=== PATIENT | female | born 1955 | race Caucasian/White ===

== ENCOUNTER 2018-02-18 09:02 | Outpatient (CLI) | payer MEDICAID, SELFPAY ==
[2018-02-18 09:42] LABS: Abs Immature Grans 0.01 k/cumm (0.0-0.09); Absolute Basophil Count 0.01 k/cumm (0.0-0.2); Absolute Eosinophil Count 0.15 k/cumm (0.0-0.7); Absolute Lymphocyte Count 1.26 k/cumm (1.2-3.4); Absolute Monocyte Count 0.51 k/cumm (0.11-0.7); Absolute Neutrophil Count 5.01 k/cumm (1.2-6.7); Basophils % 0.1; Eosinophils % 2.2; HCT 36.8 % (36.0-46.0); HGB 11.6 g/dL (12.0-15.5); Immature Grans % 0.1; Lymphocytes % 18.1; Mean Corp. HGB Concentration 31.5 g/dL (32.0-36.0); Mean Corpuscular Hemoglobin 30.5 pg (27.0-33.0); Mean Corpuscular Volume 96.8 fL (80-95); Mean Platelet Volume 9.9 fL (8.0-11.0); Monocytes % 7.3; Neutrophils % 72.2; Platelet Count 216 x1000/uL (130-400); RBC Distribution Width 14.4 % (11.7-14.6); White Blood Cell Count 6.95 k/cumm (4.4-10.8)
== END 2018-02-18 09:03 ==
PROVIDERS: PCP Psychiatry & Neurology Psychiatry; Visit Provider Psychiatry & Neurology Psychiatry
DX: F20.9 Schizophrenia, unspecified (principal); Z51.81 Encounter for therapeutic drug level monitoring; Z79.899 Other long term (current) drug therapy
CPT/HCPCS: 36415; 85025

== ENCOUNTER 2018-03-18 08:48 | Emergency (ER) | payer MEDICARE, MEDICAID, SELFPAY ==
[2018-03-18 08:53] VITALS: BP 135/70; PULSE 105; RESP 17; TEMP 36.7; O2SAT 100
--- NOTE | 2018-03-18 10:33 | W.ED.GENAD ---
Discharge Plan Disposition Patient Disposition: HOME Condition: Stable Discharge Details Chief Complaint: PsychEval Clinical Impression: Anemia Primary Care Provider: Vicente Mark ED Provider: Marie Corea Home Meds and New Rx's Prescriptions: Continue glipizide 10 MG tablet 10 mg PO BID RF: 0 metformin 1,000 MG tablet 1,000 mg PO BID RF: 0 cholecalciferol (vitamin D3) 1,000 UNITS tablet 2,000 units PO DAILY RF: 0 simvastatin 20 MG tablet 20 mg PO DAILY RF: 0 levalbuterol tartrate [Xopenex HFA] 15 GM HFA aerosol inhaler 2 puff Inhalation Q4H PRNRF: 0 lorazepam 0.5 MG tablet 0.5 mg PO TID RF: 0 acetaminophen [Mapap Extra Strength] 500 MG tablet 1,000 mg PO Q6H PRNRF: 0 docusate sodium [Colace] 100 MG capsule 200 mg PO HS PRNRF: 0 magnesium hydroxide [Milk of Magnesia] 30 ML suspension 30 ml PO DAILY PRNRF: 0 nystatin 60 GM powder 1 applic Topical BID PRNRF: 0 zolpidem 5 MG tablet 5 mg PO HS PRNRF: 0 clozapine [Clozaril] 25 MG tablet 200 mg PO BID RF: 0 lisinopril 2.5 MG tablet 2.5 mg PO DAILY RF: 0 acetaminophen 325 MG tablet 650 mg PO TID PRNRF: 0 ranitidine HCl 150 MG tablet 150 mg PO BID RF: 0 brimonidine 15 ML drops 1 drp OD BID RF: 0 aspirin [Aspir-81] 81 MG tablet,delayed release (DR/EC) 81 mg PO DAILY RF: 0 clozapine 100 MG tablet 100 mg PO HS RF: 0 Discharge Instructions Instructions: Anemia (ED) Additional Instructions: Please return immediately to the emergency department if you develop any new or worsening symptoms or if you become otherwise concerned. It is extremely important that you make an appointment to be seen by your primary care doctor within the next 1-2 weeks in follow-up for this visit. Discharge Data Discharge Date/Time-TO BE ENTERED AT DEPARTURE: 03/18/18 11:54 Medical Decision Making Nya Westbrook is a 62 y/o woman who presented to the emergency department to be set up with a PCP while she was in the hospital for scheduled outpt blood draw. She has no acute complaints other than mild urinary frequency on ROS. Benign physical exam. Given multiple medical problems and some possible access issues with the health care system, will send screening labs at this time, and also involve care management for outpt f/u. Labs okay, UA equivocal for UTI, will hold abx pending cx results. No acute emergent life threatening medical process identified. Lengthy discussion with Pt re: RTED precautions and importance of outpt f/u. Pt is amenable to the plan. Medical Records Medical records reviewed: Yes I reviewed the patient's medical records. Lab Data Lab results reviewed: Yes I reviewed the patient's lab results. Lab results narrative: Laboratory Tests Range/Units 03/18/18 03/18/18 03/18/18 09:08 10:42 10:42 WBC (4.4-10.8) k/cumm 7.07 RBC (4.00-5.20) m/cumm 3.66 L Hgb (12.0-15.5) g/dL 11.6 L Hct (36.0-46.0) % 35.3 L MCV (80-95) fL 96.4 H MCH (27.0-33.0) pg 31.7 MCHC (32.0-36.0) g/dL 32.9 RDW (11.7-14.6) % 14.2 Plt Count (130-400) x1000/uL 232 MPV (8.0-11.0) fL 9.4 Immature Gran % 0.1 Neutrophils % 70.9 Lymphocytes % 20.4 Monocytes % 7.6 Eosinophils % 0.7 Basophils % 0.3 Absolute Neutrophils (1.2-6.7) k/cumm 5.01 Absolute Lymphocytes (1.2-3.4) k/cumm 1.44 Absolute Monocytes (0.11-0.7) k/cumm 0.54 Absolute Eosinophils (0.0-0.7) k/cumm 0.05 Absolute Basophils (0.0-0.2) k/cumm 0.02 Sodium (136-145) mmol/L 141 Potassium (3.5-5.1) mmol/L 4.4 Chloride (98-107) mmol/L 105 Carbon Dioxide (21.0-32.0) mmol/L 25.1 Anion Gap (3-11) mmol/L 10.9 BUN (7-18) mg/dL 10 Creatinine (0.55-1.02) mg/dL 0.86 Estimated GFR/1.73 m2 (mL/min/1.73m2) >= 60.00 Glucose (70-100) mg/dL 113 H Calcium (8.5-10.1) mg/dL 9.3 Total Bilirubin (0.2-1.0) mg/dL 0.2 AST (15-37) U/L 17 ALT (12-78) U/L 22 Alkaline Phosphatase (46-116) U/L 80 Total Protein (6.4-8.2) g/dL 7.4 Albumin (3.4-5.0) g/dL 3.5 TSH (0.358-3.74) uIU/mL 3.99 H Free T4 (0.76-1.46) ng/dL 0.85 Urine Color (Yellow) Yellow Urine Clarity Cloudy Urine pH (5-8) 6.5 Ur Specific [place] (1.005-1.025) 1.020 Urine Protein (Negative) mg/dL 30 H Urine Ketones (Negative) mg/dL 15 H Urine Blood (Negative) Trace-intact H Urine Nitrite (Negative) Negative Urine Bilirubin (Negative) Negative Urine Urobilinogen (Up TO 0.2) EU/dL 0.2 Ur Leukocyte Esterase (Negative) Small H Urine RBC (0-2) 3-5 H Urine WBC (0-5) HPF 5-10 Ur Epithelial Cells (Negative) HPF Many Urine Crystals (Negative) HPF Negative Urine Bacteria (Negative) HPF Many Urine Casts (Negative) LPF Negative Urine Mucus (Negative) Trace Ur Culture Indicated? No/sq. contamination Urine Glucose (Negative) mg/dL Negative HPI General Mode of arrival: ambulatory. Date/Time Provider Initiated Documentation: 03/18/18 10:01. Limitations to Documentation: no limitations. Information obtained by: patient, RN notes reviewed and old records reviewed. HPI Narrative: Nya Westbrook is a 62 y/o woman with h/o HTN, NIDDM, schizophrenia presenting to the emergency department requesting a PCP. Pt reports that she was scheduled to have blood drawn today in the lab on an outpt basis, and decided to register in the ED to get help finding a primary care doctor. Pt reports that she sees a mental health provider, but would like a PCP as she has multiple chronic complaints. Pt reports chronic hip pain, chronic pain of her left orbit after facial fracture in the past. No new complaints. She reports all chronic pain has been present for months without acute changes. She states that she does not have a physical complaint today and did not come to the emergency department to be evaluated. She has been taking her meds as prescribed. Related Data Home Medications Medication Instructions Recorded Confirmed acetaminophen 650 mg PO TID PRN 06/03/15 06/03/15 acetaminophen [Mapap Extra 1,000 mg PO Q6H PRN 06/03/15 06/03/15 Strength] aspirin [Aspir-81] 81 mg PO DAILY 06/03/15 04/07/16 brimonidine 1 drp OD BID 06/03/15 04/07/16 cholecalciferol (vitamin D3) 2,000 units PO DAILY 06/03/15 06/03/15 clozapine [Clozaril] 200 mg PO BID 06/03/15 04/07/16 docusate sodium [Colace] 200 mg PO HS PRN 06/03/15 04/07/16 glipizide 10 mg PO BID 06/03/15 04/07/16 levalbuterol tartrate [Xopenex HFA] 2 puff INHALATION Q4H PRN 06/03/15 04/07/16 lisinopril 2.5 mg PO DAILY 06/03/15 04/07/16 lorazepam 0.5 mg PO TID 06/03/15 04/07/16 magnesium hydroxide [Milk of 30 ml PO DAILY PRN 06/03/15 04/07/16 Magnesia] metformin 1,000 mg PO BID 06/03/15 04/07/16 nystatin 1 applic TOPICAL BID PRN 06/03/15 04/07/16 ranitidine HCl 150 mg PO BID 06/03/15 04/07/16 simvastatin 20 mg PO DAILY 06/03/15 04/07/16 zolpidem 5 mg PO HS PRN 06/03/15 06/03/15 clozapine 100 mg PO HS 04/07/16 04/07/16 Allergies Allergy/AdvReac Type Severity Reaction Status Date / Time fluphenazine enanthate AdvReac Severe almost Unverified 04/07/16 12:51 [From Prolixin] last time they gave it to me fluphenazine HCl AdvReac Severe almost Unverified 04/07/16 12:51 [From Prolixin] last time they gave it to me haloperidol [From Haldol] AdvReac Mild doesn't Unverified 04/07/16 12:51 agree with me haloperidol lactate AdvReac Mild doesn't Unverified 04/07/16 12:51 [From Haldol] agree with me chlorpromazine HCl AdvReac Unknown per pt Unverified 04/07/16 12:51 [From [place]azine] [place] [facility] [place] AdvReac Unknown pt list Unverified 04/07/16 12:51 [place] [facility] [place]up[place] AdvReac Unknown per pt Unverified 04/07/16 12:51 [place] [facility] [place] AdvReac Unknown per pt Unverified 04/07/16 12:51 [place] [facility] [place] paliperidone [From Invega] AdvReac Unknown per pt Unverified 04/07/16 12:51 [place] [facility] [place] Penicillins AdvReac Unknown per pt Unverified 04/07/16 12:51 [place] [facility] [place] Sulfa (Sulfonamide AdvReac Unknown per pt Unverified 04/07/16 12:51 Antibiotics) [place] [facility] [place] General Stated Complaint: PsychEval ALEX: 5 Review of Systems Review of Systems Constitutional: denies fevers Eyes: denies eye pain ENT: denies facial pain, dental pain, sore throat Cardiovascular: denies chest pain, edema Respiratory: denies SOB, cough GI: denies abdominal pain, vomiting, diarrhea : denies flank pain, dysuria, reports some urinary frequency MSK: denies back pain, neck pain, arthralgias, myalgias Skin: denies rash Neuro: denies headaches, lightheadedness, weakness PFSH Social History Smoking/Tobacco Use Status: Current every day Exam Narrative Exam Narrative: Constitutional: well and [id number], pleasant, conversing normally HENT: head atraumatic, normocephalic normal inspection, mucous membranes moist Eyes: conjunctiva normal, sclera normal, pupils 3mm b/l Neck: no stridor, normal ROM, trachea midline Chest: normal inspection Resp: normal work of breathing, LCTAB Cardio: normal rate, normal rhythm, no murmur appreciated GI: abdomen soft, non-tender, non-distended Back: normal inspection, no rash Skin: warm, dry, normal color, no rash Neuro: alert, not altered, grossly non-focal, normal tone Ext: no edema Psych: normal mood, somewhat odd affect, no hallucinations, no SI, no HI Course Vital Signs Temperature 36.7 C 03/18/18 08:53 Pulse 105 H 03/18/18 08:53 Respiratory Rate 17 03/18/18 08:53 Blood Pressure 135/70 03/18/18 08:53 Pulse Oximetry 100 03/18/18 08:53 Temperature 36.7 C 03/18/18 08:53 Temperature Source Temporal Artery Scan 03/18/18 08:53 Pulse 105 H 03/18/18 08:53 Respiratory Rate 17 03/18/18 08:53 Respiratory Effort 03/18/18 08:57 Blood Pressure 135/70 03/18/18 08:53 Blood Pressure Position Sitting 03/18/18 08:53 Pulse Oximetry 100 03/18/18 08:53 Oxygen Delivery Method Room Air 03/18/18 08:53 Oxygen Flow Rate 0 03/18/18 08:53
[2018-03-18 10:39] LABS: Bilirubin Negative (Negative); Blood Trace-intact (Negative); Clarity Cloudy; Glucose Negative (Negative); Ketones 15 mg/dL (Negative); Leukocyte Esterase Small (Negative); Nitrite Negative (Negative); Urobilinogen 0.2 EU/dL (Up TO 0.2); pH 6.5 (5-8)
[2018-03-18 10:56] LABS: Abs Immature Grans 0.01 k/cumm (0.0-0.09); Absolute Basophil Count 0.02 k/cumm (0.0-0.2); Absolute Eosinophil Count 0.05 k/cumm (0.0-0.7); Absolute Lymphocyte Count 1.44 k/cumm (1.2-3.4); Absolute Monocyte Count 0.54 k/cumm (0.11-0.7); Absolute Neutrophil Count 5.01 k/cumm (1.2-6.7); Basophils % 0.3; Eosinophils % 0.7; HCT 35.3 % (36.0-46.0); HGB 11.6 g/dL (12.0-15.5); Immature Grans % 0.1; Lymphocytes % 20.4; Mean Corp. HGB Concentration 32.9 g/dL (32.0-36.0); Mean Corpuscular Hemoglobin 31.7 pg (27.0-33.0); Mean Corpuscular Volume 96.4 fL (80-95); Mean Platelet Volume 9.4 fL (8.0-11.0); Monocytes % 7.6; Neutrophils % 70.9; Platelet Count 232 x1000/uL (130-400); RBC 3.66 m/cumm (4.00-5.20); RBC Distribution Width 14.2 % (11.7-14.6); White Blood Cell Count 7.07 k/cumm (4.4-10.8)
[2018-03-18 11:03] LABS: Bacteria Many HPF (Negative); C & S Indicated? No/Sq. Contamination; Casts Negative LPF (Negative); Crystals Negative HPF (Negative); Epithelial Cells Many HPF (Negative); Mucus Trace (Negative)
[2018-03-18 11:13] LABS: ALT 22 U/L (12-78); AST 17 U/L (15-37); Albumin 3.5 g/dL (3.4-5.0); Alkaline Phosphatase 80 U/L (46-116); Anion Gap 10.9 mmol/L (3-11); BUN 10 mg/dL (7-18); Bilirubin, Total 0.2 mg/dL (0.2-1.0); CO2 25.1 mmol/L (21.0-32.0); CREATININE 0.86 mg/dL (0.55-1.02); Calcium 9.3 mg/dL (8.5-10.1); Chloride 105 mmol/L (98-107); Glucose 113 mg/dL (70-100); Potassium 4.4 mmol/L (3.5-5.1); Sodium 141 mmol/L (136-145); TSH (W/Ref FT4) 3.99 uIU/mL (0.358-3.74); Total Protein 7.4 g/dL (6.4-8.2)
--- NOTE | 2018-03-18 11:30 | PDOC.ERCMPRO ---
Care Management Progress Note 03/18/18 Pt seen today to try and establish a PCP,Dentist and an Eye Dr by Dr. Martinez. CM met with Pt who states she lives at a [facility] in [place] which is [place]. Pt states she sees Dr. Vicente Concepcion, Pyschiatrist. She states she came in for a standing blood draw order in the lab and thought while she was here she would get seen in Ed to get a PCP, Dentist and an Eye Dr. CHERRY has put in a referral to [facility] as Gerson Zabala is preparation supervisor canning, A referral to [facility] and a referral to [facility]. CHERRY has called [facility] for a ride for Pt to return back to [place].
--- NOTE | 2018-03-18 11:35 | CMPROGNOTE_ITS ---
Care Management Progress Note 03/18/18 Pt seen today to try and establish a PCP,Dentist and an Eye Dr by Dr. Martinez. CM met with Pt who states she lives at a senior care in [place] which is [place]. Pt states she sees Dr. Vicente Concepcion, Pyschiatrist. She states she came in for a standing blood draw order in the lab and thought while she was here she would get seen in Ed to get a PCP, Dentist and an Eye Dr. CHERRY has put in a referral to [facility] as Gerson Zabala is machine precision engraver, A referral to [facility] and a referral to [facility]. CHERRY has called [facility] for a ride for Pt to return back to [place].
[2018-03-18 11:36] LABS: FREE T4 0.85 ng/dL (0.76-1.46)
== END 2018-03-18 11:54 | disposition home or self-care (01) ==
PROVIDERS: Emergency Provider Student in an Organized Health Care Education/Training Program; PCP Psychiatry & Neurology Psychiatry
DX: D64.9 Anemia, unspecified (principal); E11.9 Type 2 diabetes mellitus without complications; Z79.84 Long term (current) use of oral hypoglycemic drugs
CPT/HCPCS: 36415; 80053; 99283; 81003; 81015; 84439; 84443; 85025; 99282

== ENCOUNTER 2018-03-21 15:09 | Outpatient (REF) | payer MEDICAID, SELFPAY | END 2018-03-21 15:29 | LOC: NCHCN 15:09 | PROVIDERS: PCP Psychiatry & Neurology Psychiatry; Visit Provider Specialist/Technologist Athletic Trainer | DX: R39.9 Unspecified symptoms and signs involving the genitourinary system (principal) | CPT/HCPCS: 87077; 87086; 87186 ==

== ENCOUNTER 2018-04-15 09:26 | Outpatient (CLI) | payer MEDICARE, MEDICAID, SELFPAY ==
[2018-04-15 10:14] LABS: Absolute Basophil Count 0.02 k/cumm (0.0-0.2); Absolute Eosinophil Count 0.06 k/cumm (0.0-0.7); Absolute Lymphocyte Count 1.21 k/cumm (1.2-3.4); Absolute Monocyte Count 0.39 k/cumm (0.11-0.7); Absolute Neutrophil Count 3.74 k/cumm (1.2-6.7); Basophils % 0.4; Eosinophils % 1.1; HCT 36.3 % (36.0-46.0); HGB 11.7 g/dL (12.0-15.5); Lymphocytes % 22.3; Mean Corp. HGB Concentration 32.2 g/dL (32.0-36.0); Mean Corpuscular Hemoglobin 31.5 pg (27.0-33.0); Mean Corpuscular Volume 97.6 fL (80-95); Monocytes % 7.2; Platelet Count 182 x1000/uL (130-400); RBC 3.72 m/cumm (4.00-5.20); RBC Distribution Width 13.7 % (11.7-14.6); White Blood Cell Count 5.42 k/cumm (4.4-10.8)
== END 2018-04-15 09:46 ==
PROVIDERS: PCP Psychiatry & Neurology Psychiatry; Visit Provider Psychiatry & Neurology Psychiatry
DX: F20.9 Schizophrenia, unspecified (principal); Z79.899 Other long term (current) drug therapy
CPT/HCPCS: 36415; 85025

== ENCOUNTER 2018-05-01 10:02 | Outpatient (CLI) | payer MEDICARE, MEDICAID, SELFPAY ==
[2018-05-01 10:25] LABS: Abs Immature Grans 0.03 k/cumm (0.0-0.09); Absolute Basophil Count 0.02 k/cumm (0.0-0.2); Absolute Eosinophil Count 0.09 k/cumm (0.0-0.7); Absolute Lymphocyte Count 1.75 k/cumm (1.2-3.4); Absolute Monocyte Count 0.61 k/cumm (0.11-0.7); Absolute Neutrophil Count 7.45 k/cumm (1.2-6.7); Basophils % 0.2; Eosinophils % 0.9; HCT 34.4 % (36.0-46.0); HGB 11.6 g/dL (12.0-15.5); Immature Grans % 0.3; Lymphocytes % 17.6; Mean Corp. HGB Concentration 33.7 g/dL (32.0-36.0); Mean Corpuscular Hemoglobin 32.5 pg (27.0-33.0); Mean Corpuscular Volume 96.4 fL (80-95); Mean Platelet Volume 9.5 fL (8.0-11.0); Monocytes % 6.1; Neutrophils % 74.9; Platelet Count 193 x1000/uL (130-400); RBC 3.57 m/cumm (4.00-5.20); RBC Distribution Width 13.4 % (11.7-14.6); White Blood Cell Count 9.95 k/cumm (4.4-10.8)
== END 2018-05-01 10:22 ==
PROVIDERS: PCP Psychiatry & Neurology Psychiatry; Visit Provider Psychiatry & Neurology Psychiatry
DX: F20.9 Schizophrenia, unspecified (principal); Z79.899 Other long term (current) drug therapy
CPT/HCPCS: 36415; 85025

== ENCOUNTER 2018-05-29 09:45 | Outpatient (CLI) | payer MEDICARE, MEDICAID, SELFPAY ==
[2018-05-29 10:29] LABS: Abs Immature Grans 0.02 k/cumm (0.0-0.09); Absolute Basophil Count 0.02 k/cumm (0.0-0.2); Absolute Eosinophil Count 0.13 k/cumm (0.0-0.7); Absolute Lymphocyte Count 1.34 k/cumm (1.2-3.4); Absolute Monocyte Count 0.47 k/cumm (0.11-0.7); Absolute Neutrophil Count 4.56 k/cumm (1.2-6.7); Basophils % 0.3; HCT 37.9 % (36.0-46.0); HGB 11.9 g/dL (12.0-15.5); Immature Grans % 0.3; Lymphocytes % 20.5; Mean Corp. HGB Concentration 31.4 g/dL (32.0-36.0); Mean Corpuscular Hemoglobin 30.6 pg (27.0-33.0); Mean Corpuscular Volume 97.4 fL (80-95); Mean Platelet Volume 9.6 fL (8.0-11.0); Monocytes % 7.2; Neutrophils % 69.7; Platelet Count 245 x1000/uL (130-400); RBC 3.89 m/cumm (4.00-5.20); RBC Distribution Width 13.5 % (11.7-14.6); White Blood Cell Count 6.54 k/cumm (4.4-10.8)
== END 2018-05-29 10:05 ==
PROVIDERS: PCP Psychiatry & Neurology Psychiatry; Visit Provider Nurse Practitioner Psychiatric/Mental Health
DX: F20.9 Schizophrenia, unspecified (principal); Z79.899 Other long term (current) drug therapy
CPT/HCPCS: 36415; 85025

== ENCOUNTER 2018-06-11 19:30 | Outpatient (REF) | payer MEDICARE, MEDICAID, SELFPAY ==
[2018-06-11 20:29] LABS: C & S Indicated? C&S Done As Ordered
[2018-06-11 20:40] LABS: Bacteria Many HPF (Negative); Casts Negative LPF (Negative); Crystals Negative HPF (Negative); Epithelial Cells Many HPF (Negative); Mucus Negative (Negative); RBC Negative (0-2); WBC >50 HPF (0-5)
== END 2018-06-11 19:50 ==
LOC: NCHCN 19:30
PROVIDERS: PCP Psychiatry & Neurology Psychiatry; Visit Provider Specialist/Technologist Athletic Trainer
DX: R82.90 Unspecified abnormal findings in urine (principal); Z87.440 Personal history of urinary (tract) infections; M54.5 Low back pain
CPT/HCPCS: 87077; 81015; 87086; 87186

== ENCOUNTER 2018-06-26 10:02 | Outpatient (CLI) | payer MEDICARE, MEDICAID, SELFPAY ==
[2018-06-26 10:28] LABS: Abs Immature Grans 0.01 k/cumm (0.0-0.09); Absolute Basophil Count 0.01 k/cumm (0.0-0.2); Absolute Eosinophil Count 0.16 k/cumm (0.0-0.7); Absolute Lymphocyte Count 1.37 k/cumm (1.2-3.4); Absolute Neutrophil Count 6.76 k/cumm (1.2-6.7); Basophils % 0.1; Eosinophils % 1.8; HCT 34.4 % (36.0-46.0); HGB 11.4 g/dL (12.0-15.5); Immature Grans % 0.1; Lymphocytes % 15.7; Mean Corp. HGB Concentration 33.1 g/dL (32.0-36.0); Mean Corpuscular Hemoglobin 31.3 pg (27.0-33.0); Mean Corpuscular Volume 94.5 fL (80-95); Mean Platelet Volume 9.4 fL (8.0-11.0); Monocytes % 4.6; Neutrophils % 77.7; Platelet Count 225 x1000/uL (130-400); RBC 3.64 m/cumm (4.00-5.20); White Blood Cell Count 8.71 k/cumm (4.4-10.8)
== END 2018-06-26 10:22 ==
PROVIDERS: PCP Psychiatry & Neurology Psychiatry; Visit Provider Nurse Practitioner Psychiatric/Mental Health
DX: F20.9 Schizophrenia, unspecified (principal); Z79.899 Other long term (current) drug therapy
CPT/HCPCS: 85025

== ENCOUNTER 2018-07-12 17:21 | Outpatient (REF) | payer MEDICARE, MEDICAID, SELFPAY ==
[2018-07-12 19:15] LABS: Bilirubin Negative (Negative); Blood Trace-intact (Negative); Clarity Cloudy; Glucose Negative (Negative); Ketones Negative (Negative); Leukocyte Esterase Large (Negative); Nitrite Negative (Negative); Specific Gravity 1.015 (1.005-1.025); Urobilinogen 0.2 EU/dL (Up TO 0.2)
[2018-07-12 19:57] LABS: Bacteria Many HPF (Negative); C & S Indicated? Yes; Casts Negative LPF (Negative); Crystals Negative HPF (Negative); Epithelial Cells Few HPF (Negative); Mucus Negative (Negative); Other Cells Negative (Negative); WBC >50 HPF (0-5)
== END 2018-07-12 17:41 ==
LOC: NCHCN 17:21
PROVIDERS: PCP Psychiatry & Neurology Psychiatry; Visit Provider Physician Assistant Medical
DX: N39.0 Urinary tract infection, site not specified (principal)
CPT/HCPCS: 87077; 81003; 81015; 87086; 87186

== ENCOUNTER 2018-07-25 19:34 | Outpatient (REF) | payer MEDICARE, MEDICAID, SELFPAY ==
[2018-07-25 22:15] LABS: Bacteria Many HPF (Negative); Epithelial Cells Many HPF (Negative); RBC Negative (0-2); WBC 20-50 HPF (0-5)
[2018-07-25 22:16] LABS: Crystals Few Calcium Oxalate HPF (Negative)
[2018-07-25 22:17] LABS: C & S Indicated? No/Sq. Contamination; Mucus Negative (Negative)
== END 2018-07-25 19:54 ==
LOC: NCHCN 19:34
PROVIDERS: PCP Psychiatry & Neurology Psychiatry; Visit Provider Specialist/Technologist Athletic Trainer
DX: R35.0 Frequency of micturition (principal); R30.0 Dysuria
CPT/HCPCS: 81015

== ENCOUNTER 2018-07-31 08:44 | Outpatient (CLI) | payer MEDICARE, MEDICAID, SELFPAY ==
[2018-07-31 09:11] LABS: Abs Immature Grans 0.01 k/cumm (0.0-0.09); Absolute Basophil Count 0.03 k/cumm (0.0-0.2); Absolute Eosinophil Count 0.41 k/cumm (0.0-0.7); Absolute Lymphocyte Count 1.43 k/cumm (1.2-3.4); Absolute Monocyte Count 0.38 k/cumm (0.11-0.7); Absolute Neutrophil Count 6.38 k/cumm (1.2-6.7); Basophils % 0.3; Eosinophils % 4.7; HCT 35.5 % (36.0-46.0); HGB 11.4 g/dL (12.0-15.5); Immature Grans % 0.1; Lymphocytes % 16.6; Mean Corp. HGB Concentration 32.1 g/dL (32.0-36.0); Mean Corpuscular Hemoglobin 30.8 pg (27.0-33.0); Mean Corpuscular Volume 95.9 fL (80-95); Mean Platelet Volume 9.5 fL (8.0-11.0); Monocytes % 4.4; Neutrophils % 73.9; Platelet Count 236 x1000/uL (130-400); RBC Distribution Width 13.5 % (11.7-14.6); White Blood Cell Count 8.64 k/cumm (4.4-10.8)
[2018-07-31 10:27] LABS: Hemoglobin A1C 6.2 % (4.5-6.2)
[2018-07-31 10:55] LABS: ALT 14 U/L (12-78); AST 14 U/L (15-37); Albumin 3.5 g/dL (3.4-5.0); Alkaline Phosphatase 77 U/L (46-116); BUN 13 mg/dL (7-18); Bilirubin, Total 0.3 mg/dL (0.2-1.0); CREATININE 0.98 mg/dL (0.55-1.02); Calcium 9.5 mg/dL (8.5-10.1); Chloride 106 mmol/L (98-107); Cholesterol 145 mg/dL (50-200); Estimated GFR 56.96 (mL/min/1.73m2); Glucose 127 mg/dL (70-100); HDL Cholesterol 42 mg/dL (40-60); LDL CHOLESTEROL 77 mg/dL (<100); Potassium 4.7 mmol/L (3.5-5.1); Sodium 143 mmol/L (136-145); TSH 5.07 uIU/mL (0.358-3.74); Total Protein 7.1 g/dL (6.4-8.2); Triglyceride 157 mg/dL (30-150)
[2018-08-02 07:52] LABS: Clozapine 636 ng/mL (>350); Clozapine+Norclozapine Total 1008 ng/mL (>450); Norclozapine 372 ng/mL
== END 2018-07-31 09:04 ==
PROVIDERS: Nurse Practitioner Psychiatric/Mental Health; PCP Psychiatry & Neurology Psychiatry; Visit Provider Psychiatry & Neurology Psychiatry
DX: F25.0 Schizoaffective disorder, bipolar type (principal); Z51.81 Encounter for therapeutic drug level monitoring; Z79.899 Other long term (current) drug therapy
CPT/HCPCS: 36415; 80053; 80061; 83721; 80159; 83036; 84443; 85025

== ENCOUNTER 2018-08-28 09:20 | Outpatient (CLI) | payer MEDICARE, MEDICAID, SELFPAY ==
[2018-08-28 10:08] LABS: Abs Immature Grans 0.01 k/cumm (0.0-0.09); Absolute Basophil Count 0.02 k/cumm (0.0-0.2); Absolute Eosinophil Count 0.26 k/cumm (0.0-0.7); Absolute Lymphocyte Count 1.23 k/cumm (1.2-3.4); Absolute Monocyte Count 0.39 k/cumm (0.11-0.7); Absolute Neutrophil Count 4.41 k/cumm (1.2-6.7); Basophils % 0.3; Eosinophils % 4.1; HCT 35.1 % (36.0-46.0); HGB 11.1 g/dL (12.0-15.5); Immature Grans % 0.2; Lymphocytes % 19.5; Mean Corp. HGB Concentration 31.6 g/dL (32.0-36.0); Mean Corpuscular Hemoglobin 30.4 pg (27.0-33.0); Mean Corpuscular Volume 96.2 fL (80-95); Mean Platelet Volume 9.8 fL (8.0-11.0); Monocytes % 6.2; Neutrophils % 69.7; Platelet Count 216 x1000/uL (130-400); RBC 3.65 m/cumm (4.00-5.20); RBC Distribution Width 13.7 % (11.7-14.6); White Blood Cell Count 6.32 k/cumm (4.4-10.8)
== END 2018-08-28 09:40 ==
PROVIDERS: PCP Psychiatry & Neurology Psychiatry; Visit Provider Nurse Practitioner Psychiatric/Mental Health
DX: F20.9 Schizophrenia, unspecified (principal); Z79.899 Other long term (current) drug therapy
CPT/HCPCS: 36415; 85025

== ENCOUNTER 2018-09-25 04:19 | Outpatient (CLI) | payer MEDICARE, MEDICAID, SELFPAY ==
[2018-09-25 10:39] LABS: Abs Immature Grans 0.01 k/cumm (0.0-0.09); Absolute Basophil Count 0.02 k/cumm (0.0-0.2); Absolute Eosinophil Count 0.17 k/cumm (0.0-0.7); Absolute Lymphocyte Count 1.49 k/cumm (1.2-3.4); Absolute Monocyte Count 0.54 k/cumm (0.11-0.7); Absolute Neutrophil Count 3.69 k/cumm (1.2-6.7); Basophils % 0.3; Eosinophils % 2.9; HCT 34.5 % (36.0-46.0); HGB 11.1 g/dL (12.0-15.5); Immature Grans % 0.2; Lymphocytes % 25.2; Mean Corp. HGB Concentration 32.2 g/dL (32.0-36.0); Mean Corpuscular Hemoglobin 30.4 pg (27.0-33.0); Mean Corpuscular Volume 94.5 fL (80-95); Mean Platelet Volume 9.6 fL (8.0-11.0); Monocytes % 9.1; Neutrophils % 62.3; Platelet Count 259 x1000/uL (130-400); RBC 3.65 m/cumm (4.00-5.20); RBC Distribution Width 13.2 % (11.7-14.6); White Blood Cell Count 5.92 k/cumm (4.4-10.8)
== END 2018-09-25 04:39 ==
PROVIDERS: PCP Specialist/Technologist Athletic Trainer; Visit Provider Nurse Practitioner Psychiatric/Mental Health
DX: F20.9 Schizophrenia, unspecified (principal); Z79.899 Other long term (current) drug therapy
CPT/HCPCS: 36415; 85025

== ENCOUNTER 2018-10-23 09:35 | Outpatient (CLI) | payer MEDICARE, MEDICAID, SELFPAY ==
[2018-10-23 10:37] LABS: Abs Immature Grans 0.02 k/cumm (0.0-0.09); Absolute Basophil Count 0.02 k/cumm (0.0-0.2); Absolute Eosinophil Count 0.21 k/cumm (0.0-0.7); Absolute Lymphocyte Count 1.18 k/cumm (1.2-3.4); Basophils % 0.2; Eosinophils % 1.9; HCT 33.1 % (36.0-46.0); HGB 10.7 g/dL (12.0-15.5); Immature Grans % 0.2; Lymphocytes % 10.7; Mean Corp. HGB Concentration 32.3 g/dL (32.0-36.0); Mean Corpuscular Hemoglobin 30.3 pg (27.0-33.0); Mean Corpuscular Volume 93.8 fL (80-95); Mean Platelet Volume 9.5 fL (8.0-11.0); Monocytes % 6.3; Neutrophils % 80.7; Platelet Count 299 x1000/uL (130-400); RBC 3.53 m/cumm (4.00-5.20); RBC Distribution Width 12.8 % (11.7-14.6); White Blood Cell Count 11.03 k/cumm (4.4-10.8)
[2018-10-23 10:38] LABS: Absolute Monocyte Count 0.69 k/cumm (0.11-0.7)
== END 2018-10-23 09:55 ==
PROVIDERS: PCP Specialist/Technologist Athletic Trainer; Visit Provider Psychiatry & Neurology Psychiatry
DX: F20.9 Schizophrenia, unspecified (principal); Z79.899 Other long term (current) drug therapy
CPT/HCPCS: 36415; 85025

== ENCOUNTER 2018-11-19 11:14 | Outpatient (REF) | payer MEDICARE, MEDICAID, SELFPAY | END 2018-11-19 11:34 | LOC: NCHCN 11:14 | PROVIDERS: PCP Specialist/Technologist Athletic Trainer; Visit Provider Nurse Practitioner Family | DX: R35.0 Frequency of micturition (principal) | CPT/HCPCS: 87077; 87086; 87186 ==

== ENCOUNTER 2018-11-20 09:25 | Outpatient (CLI) | payer MEDICARE, MEDICAID, SELFPAY ==
[2018-11-20 10:03] LABS: Abs Immature Grans 0.01 k/cumm (0.0-0.09); Absolute Basophil Count 0.01 k/cumm (0.0-0.2); Absolute Lymphocyte Count 1.18 k/cumm (1.2-3.4); Absolute Monocyte Count 0.49 k/cumm (0.11-0.7); Absolute Neutrophil Count 5.13 k/cumm (1.2-6.7); Basophils % 0.1; Eosinophils % 2.8; HCT 33.6 % (36.0-46.0); HGB 10.6 g/dL (12.0-15.5); Immature Grans % 0.1; Lymphocytes % 16.8; Mean Corp. HGB Concentration 31.5 g/dL (32.0-36.0); Mean Corpuscular Volume 95.2 fL (80-95); Mean Platelet Volume 9.1 fL (8.0-11.0); Neutrophils % 73.2; Platelet Count 258 x1000/uL (130-400); RBC 3.53 m/cumm (4.00-5.20); RBC Distribution Width 13.5 % (11.7-14.6); White Blood Cell Count 7.02 k/cumm (4.4-10.8)
== END 2018-11-20 09:45 ==
PROVIDERS: Psychiatry & Neurology Psychiatry; PCP Specialist/Technologist Athletic Trainer; Visit Provider Nurse Practitioner Psychiatric/Mental Health
DX: F20.9 Schizophrenia, unspecified (principal); Z79.899 Other long term (current) drug therapy
CPT/HCPCS: 36415; 85025

== ENCOUNTER 2018-11-26 15:52 | Outpatient (REF) | payer MEDICARE, MEDICAID, SELFPAY | END 2018-11-26 16:12 | LOC: NCHCN 15:52 | PROVIDERS: PCP Specialist/Technologist Athletic Trainer; Visit Provider Nurse Practitioner Family | DX: R35.0 Frequency of micturition (principal) | CPT/HCPCS: 87086 ==

== ENCOUNTER 2018-12-02 01:34 | Outpatient (CLI) | payer MEDICARE, MEDICAID, SELFPAY ==
--- NOTE | 2018-12-02 08:00 | DI.US_ITS ---
SYMPTOM/DIAGNOSIS: ABD BLOATING, R14.0 H/O FATTY LIVER OF PANCREAS ON CT ABDOMINAL ULTRASOUND: Routine examination. No priors The aorta and inferior vena cava are unremarkable. The liver is normal in size and echogenicity. No evidence of a solid mass is seen. No sonographic findings to suggest fatty liver are present. The gallbladder is negative. No stones or sludge present. The common duct is within normal limits at 0.4 cm The pancreas shows no evidence of a mass. There does appear to be increased echogenicity of the pancreas suggesting fatty infiltration. The spleen is unremarkable. The left kidney is normal in size and blood flow. No suspicious solid mass, obstruction or nephrolithiasis is present. There is a 0.9 cm simple cyst in the left kidney. The right kidney measures 8.8 cm in length. No evidence of nephrolithiasis or obstruction is seen. There does appear to be a 1.5 x 1.6 x 2.2 cm Iso echoic solid mass on the upper pole of the right kidney. No internal blood flow is seen. IMPRESSION: 1. Findings suggesting fatty infiltration of the pancreas 2. No evidence of hepatic steatosis or cholelithiasis 3. Question of a 2.2 cm isoechoic mass in the superior pole of the right kidney. CT scan of the kidneys is recommended for further evaluation.
== END 2018-12-02 01:54 ==
PROVIDERS: PCP Specialist/Technologist Athletic Trainer; Visit Provider Nurse Practitioner Family
DX: R14.0 Abdominal distension (gaseous) (principal); K86.89 Other specified diseases of pancreas; R93.421 Abnormal radiologic findings on diagnostic imaging of right kidney
CPT/HCPCS: 76700

== ENCOUNTER 2018-12-17 01:20 | Outpatient (CLI) | payer MEDICARE, MEDICAID, SELFPAY ==
--- NOTE | 2018-12-17 08:30 | DI.CT_ITS ---
SYMPTOM/DIAGNOSIS: ABD BLOATING, R14.[address]: Comparison is made with abdomen ultrasound dated 12/02/18. Images were performed from the lung bases through the ischial tuberosities after IV and oral contrast. The lung bases are clear. The heart size is normal. The liver, gallbladder, spleen and adrenals normal. There is fatty atrophy of the pancreas. There are two adjacent diverticula of the descending duodenum. There is an area of scarring at the upper pole of the right kidney as well as a tiny upper pole renal cyst. An additional area of scarring is seen at the lower pole of the right kidney. There is mild prominence of the right renal pelvis but no evidence of an obstructing stone or mass. There are a few small left renal cysts. No renal calculi are seen. The bladder shows mild diffuse wall thickening without evidence of focal mass. The patient is status post hysterectomy. No bowel dilatation or inflammatory changes are seen. The aorta is normal in diameter and shows minimal calcification. There is no evidence of adenopathy in the abdomen or pelvis. No bony abnormalities are seen. IMPRESSION: Scarring at the upper and lower poles of the right kidney. No evidence of a suspicious renal mass.
[2018-12-17 09:21] LABS: CREATININE 0.96 mg/dL (0.55-1.02); Estimated GFR 58.33 (mL/min/1.73m2)
[2018-12-17] MEDS: Omnipaque 350 MG/ML 100 ML BTL IJ (09:50)
[2018-12-17] MEDS: Omnipaque 350 MG/ML 50 ML BTL IJ (10:35)
[2018-12-17] MEDS: Breeza Beverage 473 ML BTL PO (10:36)
== END 2018-12-17 01:40 ==
PROVIDERS: PCP Specialist/Technologist Athletic Trainer; Visit Provider Nurse Practitioner Family
DX: R93.5 Abnormal findings on diagnostic imaging of other abdominal regions, including retroperitoneum (principal); E11.9 Type 2 diabetes mellitus without complications; R14.0 Abdominal distension (gaseous); N28.89 Other specified disorders of kidney and ureter; K86.89 Other specified diseases of pancreas; N28.1 Cyst of kidney, acquired
CPT/HCPCS: 74177; 82565; J3490; Q9967

== ENCOUNTER 2018-12-17 10:48 | Emergency (ER) | payer MEDICARE, MEDICAID, SELFPAY ==
[2018-12-17 11:03] VITALS: BP 152/77; PULSE 121; RESP 16; TEMP 36.4; O2SAT 97
[2018-12-17 11:37] LABS: Bilirubin Negative (Negative); Blood Negative (Negative); Clarity Clear (Clear); Glucose Negative (Negative); Ketones Negative (Negative); Leukocyte Esterase Moderate (Negative); Nitrite Negative (Negative); Specific Gravity <= 1.005 (1.005-1.025); Urobilinogen 0.2 EU/dL (Up TO 0.2); pH 6.5 (5-8)
[2018-12-17 11:48] LABS: Epithelial Cells Few HPF (Negative); RBC Negative (0-2); WBC >50 HPF (0-5)
[2018-12-17 11:49] LABS: Bacteria Moderate HPF (Negative); C & S Indicated? Yes; Casts Negative LPF (Negative); Crystals Negative HPF (Negative); Mucus Negative (Negative)
--- NOTE | 2018-12-17 11:54 | W.ED.GENAD ---
Discharge Plan Disposition Patient Disposition: HOME Condition: Stable Discharge Details Chief Complaint: Orthopedic Clinical Impression: Contusion of left hip and thigh, Acute UTI Primary Care Provider: Lili Scanlon ED Provider: Bryan Rodriguez Home Meds and New Rx's Prescriptions: New nitrofurantoin monohyd/m-cryst [Macrobid] 100 mg capsule 100 mg PO BID Qty: 9 RF: 0 Continued metformin 1,000 MG tablet 1,000 mg PO BID RF: 0 cholecalciferol (vitamin D3) 1,000 UNITS tablet 2,000 units PO DAILY RF: 0 simvastatin 20 MG tablet 20 mg PO DAILY RF: 0 acetaminophen [Mapap Extra Strength] 500 MG tablet 1,000 mg PO Q6H PRNRF: 0 docusate sodium [Colace] 100 MG capsule 200 mg PO HS PRNRF: 0 magnesium hydroxide [Milk of Magnesia] 30 ML suspension 30 ml PO DAILY PRNRF: 0 nystatin 60 GM powder 1 applic Topical BID PRNRF: 0 clozapine [Clozaril] 25 MG tablet 200 mg PO .QHS RF: 0 acetaminophen 325 MG tablet 650 mg PO TID PRNRF: 0 ranitidine HCl 150 MG tablet 150 mg PO BID RF: 0 brimonidine 15 ML drops 1 drp OD BID RF: 0 aspirin [Aspir-81] 81 MG tablet,delayed release (DR/EC) 81 mg PO DAILY RF: 0 clozapine 100 MG tablet 100 mg PO DAILY RF: 0 clonazepam 0.5 mg Tablet 0.5 mg PO TID RF: 0 latanoprost 0.005 % Drops 1 drp .QHS RF: 0 nicotine [Nicoderm CQ] 7 mg/24 hr Patch 24 Hour RF: 0 naproxen 375 mg Tablet 375 mg PO BID RF: 0 cyclobenzaprine 5 mg Tablet 5 mg PO .QHS PRNRF: 0 albuterol sulfate [ProAir HFA] 90 mcg/actuation Hfa Aerosol Inhaler 2 - 4 puff Inhalation .Q4-6 HOURS PRNRF: 0 Discharge Instructions Instructions: Urinary Tract Infection in Women (ED), Contusion in Adults (ED) Additional Instructions: Feel free to return the emergency department for any new or worsening symptoms otherwise follow-up with your primary care provider for reassessment as already arranged. You may apply ice to area of swelling and bruising and continue to take acetaminophen for your discomfort. Referrals: Lili Scanlon [Primary Care Provider] - (For reassessment) Discharge Data Discharge Date/Time-TO BE ENTERED AT DEPARTURE: 12/17/18 14:00 Medical Decision Making Patient presenting to the emergency department for chief complaint of left hip pain. Patient states 2 days ago she was going up a ramp at [place] and slipped and fell hitting her leg against the railing. Since then she has had pain to her left hip. Patient was in the hospital for outpatient imaging and decided to check into the emergency department for complaint of injury. Patient does state that she has been urinating frequently but otherwise denies any other symptoms. Physical exam shows significant ecchymosis to left lateral buttock and hip with tenderness to palpation of the pelvis mid and proximal femur. Patient otherwise is weightbearing, ambulatory, and full range of motion. Since patient was just here for abdominal CT I do not feel that any additional imaging is needed for the pelvis as these images will be already obtained but given that patient is complaining of fall with significant ecchymosis and thigh pain I do feel that radiological imaging of the femur is warranted but highly suspicious of more contusion. Given urinary frequency with no other complaints urinalysis was ordered. Pending review of imaging urinalysis came back and did show significant leukocyte esterase and WBCs with moderate bacteria. Patient placed upon Macrobid for UTI. Review of radiological imaging shows no acute findings. Patient to follow-up with primary care provider in regards to outpatient testing otherwise she may continue to apply ice to area of bruising and take acetaminophen. HPI General Mode of arrival: ambulatory. Date/Time Provider Initiated Documentation: 12/17/18 11:15. Limitations to Documentation: no limitations. Information obtained by: patient. History of Present Illness 63 year old F presents to the emergency department with the chief complaint of fall, urinary frequency, described as moderate, with intensity rated at 8. Quality is described as aching and sharp, and is localized to the buttocks, left and lower extremity. Patient started experiencing this day(s) (2) and it has been constant. Patient did receive the following treatments prior to arrival, none Related Data Home Medications Medication Instructions Recorded Confirmed acetaminophen 650 mg PO TID PRN 06/03/15 12/17/18 acetaminophen [Mapap Extra 1,000 mg PO Q6H PRN 06/03/15 12/17/18 Strength] aspirin [Aspir-81] 81 mg PO DAILY 06/03/15 12/17/18 brimonidine 1 drp OD BID 06/03/15 12/17/18 cholecalciferol (vitamin D3) 2,000 units PO DAILY 06/03/15 12/17/18 clozapine [Clozaril] 200 mg PO .QHS 06/03/15 12/17/18 docusate sodium [Colace] 200 mg PO HS PRN 06/03/15 12/17/18 magnesium hydroxide [Milk of 30 ml PO DAILY PRN 06/03/15 12/17/18 Magnesia] metformin 1,000 mg PO BID 06/03/15 04/07/16 nystatin 1 applic TOPICAL BID PRN 06/03/15 12/17/18 ranitidine HCl 150 mg PO BID 06/03/15 12/17/18 simvastatin 20 mg PO DAILY 06/03/15 12/17/18 clozapine 100 mg PO DAILY 04/07/16 12/17/18 albuterol sulfate [ProAir HFA] 2 - 4 puff INHALATION .Q4-6 HOURS 12/17/18 12/17/18 PRN clonazepam 0.5 mg PO TID 12/17/18 12/17/18 cyclobenzaprine 5 mg PO .QHS PRN 12/17/18 12/17/18 latanoprost 1 drp .QHS 12/17/18 12/17/18 naproxen 375 mg PO BID 12/17/18 12/17/18 nicotine [Nicoderm CQ] 12/17/18 nitrofurantoin monohyd/m-cryst 100 mg PO BID #9 cap 12/17/18 [Macrobid] Previous Rx's Medication Instructions Recorded nitrofurantoin monohyd/m-cryst 100 mg PO BID #9 cap 12/17/18 [Macrobid] Allergies Allergy/AdvReac Type Severity Reaction Status Date / Time fluphenazine enanthate AdvReac Severe almost Unverified 12/17/18 11:06 [From Prolixin] last time they gave it to me fluphenazine HCl AdvReac Severe almost Unverified 12/17/18 11:06 [From Prolixin] last time they gave it to me haloperidol [From Haldol] AdvReac Mild doesn't Unverified 12/17/18 11:06 agree with me haloperidol lactate AdvReac Mild doesn't Unverified 12/17/18 11:06 [From Haldol] agree with me chlorpromazine HCl AdvReac Unknown per pt Unverified 12/17/18 11:06 [From Thorazine] [place] [facility] [place] AdvReac Unknown pt list Unverified 12/17/18 11:06 [place] [facility] [place] AdvReac Unknown per pt Unverified 12/17/18 11:06 [place] [facility] [place] AdvReac Unknown per pt Unverified 12/17/18 11:06 [place] [facility] [place] [From Invega] AdvReac Unknown per pt Unverified 12/17/18 11:06 [place] [facility] [place] Penicillins AdvReac Unknown per pt Unverified 12/17/18 11:06 [place] [facility] [place]a (Sulfonamide AdvReac Unknown per pt Unverified 12/17/18 11:06 Antibiotics) [place] [facility] [place] Stated Complaint: Orthopedic ALEX: 4 Review of Systems Constitutional Denies chills and Denies fever(s) Cardiovascular Denies dyspnea Respiratory Denies dyspnea Gastrointestinal Denies nausea and Denies vomiting Genitourinary Reports as per HPI, Denies hematuria, Reports urinary frequency, Denies dysuria and Reports urinary urgency Musculoskeletal Reports as per HPI, Denies deformity, Reports arthralgias (Left hip), Denies numbness and Denies tingling Integumentary/Breasts Reports other (Ecchymosis left hip) Neurologic Denies numbness and Denies tingling PFSH Social History Smoking/Tobacco Use Status: Current every day Drug use: Current Sobriety Do you feel safe in your relationship?: Yes Exam Const General: cooperative and no acute distress Orientation: alert, awake and oriented x3 Resp Effort & Inspection: normal respiratory effort and able to speak in complete sentences Auscultation: clear to auscultation bilaterally Cardio Rate: regular rate Rhythm: regular rhythm Heart Sounds: S1 normal and S2 normal GI Palpation: nontender Back/Spine/Pelvis Back: no CVA tenderness Neuro General: alert, awake and oriented x3 Extrem General: normal capillary refill Left lower extremity: full ROM, normal capillary refill, no joint enlargement, hip/thigh Details: tenderness Location: of the hip Location: laterally and over the great trochanter, of the proximal upper leg Location: anteriorly and of the mid upper leg Location: laterally and anteriorly and ecchymosis (Left anterior hip); no swelling, no crepitus and no deformity, knee Details: normal to inspection and normal ROM; no tenderness and lower leg Details: normal to inspection; no tenderness Course Vital Signs Temperature 36.4 C L 12/17/18 11:03 Pulse 121 H 12/17/18 11:03 Respiratory Rate 16 12/17/18 11:03 Blood Pressure 152/77 H 12/17/18 11:03 Pulse Oximetry 97 12/17/18 11:03 Temperature 36.4 C L 12/17/18 11:03 Temperature Source Skin 12/17/18 11:03 Pulse 121 H 12/17/18 11:03 Respiratory Rate 16 12/17/18 11:03 Respiratory Effort Non-Labored 12/17/18 11:03 Blood Pressure 152/77 H 12/17/18 11:03 Blood Pressure Position Sitting 12/17/18 11:03 Pulse Oximetry 97 12/17/18 11:03 Oxygen Delivery Method Room Air 12/17/18 11:03 Oxygen Flow Rate 0 12/17/18 11:03 Pain Level 8 12/17/18 11:03 Lab/Test Results Lab/Test Results: 12/17/18 11:30 Urine - Reflex from Ua Urine Culture - Pending Laboratory Tests Range/Units 12/17/18 11:30 Urine Color (Yellow) Yellow Urine Clarity (Clear) Clear Urine pH (5-8) 6.5 Ur Specific [place] (1.005-1.025) <= 1.005 Urine Protein (Negative) mg/dL Negative Urine Ketones (Negative) mg/dL Negative Urine Blood (Negative) Negative Urine Nitrite (Negative) Negative Urine Bilirubin (Negative) Negative Urine Urobilinogen (Up TO 0.2) EU/dL 0.2 Ur Leukocyte Esterase (Negative) Moderate H Urine RBC (0-2) Negative Urine WBC (0-5) HPF >50 Ur Epithelial Cells (Negative) HPF Few Urine Crystals (Negative) HPF Negative Urine Bacteria (Negative) HPF Moderate Urine Casts (Negative) LPF Negative Urine Mucus (Negative) Negative Ur Culture Indicated? Yes Urine Glucose (Negative) mg/dL Negative
--- NOTE | 2018-12-17 12:00 | ED.GENADUL_ITS ---
Discharge Plan Disposition Patient Disposition: HOME Condition: Stable Discharge Details Chief Complaint: Orthopedic Clinical Impression: Contusion of left hip and thigh, Acute UTI Primary Care Provider: Lili Scanlon ED Provider: Bryan Rodriguez Home Meds and New Rx's Prescriptions: New nitrofurantoin monohyd/m-cryst [Macrobid] 100 mg capsule 100 mg PO BID Qty: 9 RF: 0 Continued metformin 1,000 MG tablet 1,000 mg PO BID RF: 0 cholecalciferol (vitamin D3) 1,000 UNITS tablet 2,000 units PO DAILY RF: 0 simvastatin 20 MG tablet 20 mg PO DAILY RF: 0 acetaminophen [Mapap Extra Strength] 500 MG tablet 1,000 mg PO Q6H PRNRF: 0 docusate sodium [Colace] 100 MG capsule 200 mg PO HS PRNRF: 0 magnesium hydroxide [Milk of Magnesia] 30 ML suspension 30 ml PO DAILY PRNRF: 0 nystatin 60 GM powder 1 applic Topical BID PRNRF: 0 clozapine [Clozaril] 25 MG tablet 200 mg PO .QHS RF: 0 acetaminophen 325 MG tablet 650 mg PO TID PRNRF: 0 ranitidine HCl 150 MG tablet 150 mg PO BID RF: 0 brimonidine 15 ML drops 1 drp OD BID RF: 0 aspirin [Aspir-81] 81 MG tablet,delayed release (DR/EC) 81 mg PO DAILY RF: 0 clozapine 100 MG tablet 100 mg PO DAILY RF: 0 clonazepam 0.5 mg Tablet 0.5 mg PO TID RF: 0 latanoprost 0.005 % Drops 1 drp .QHS RF: 0 nicotine [Nicoderm CQ] 7 mg/24 hr Patch 24 Hour RF: 0 naproxen 375 mg Tablet 375 mg PO BID RF: 0 cyclobenzaprine 5 mg Tablet 5 mg PO .QHS PRNRF: 0 albuterol sulfate [ProAir HFA] 90 mcg/actuation Hfa Aerosol Inhaler 2 - 4 puff Inhalation .Q4-6 HOURS PRNRF: 0 Discharge Instructions Instructions: Urinary Tract Infection in Women (ED), Contusion in Adults (ED) Additional Instructions: Feel free to return the emergency department for any new or worsening symptoms otherwise follow-up with your primary care provider for reassessment as already arranged. You may apply ice to area of swelling and bruising and continue to take acetaminophen for your discomfort. Referrals: Lili Scanlon [Primary Care Provider] - (For reassessment) Discharge Data Discharge Date/Time-TO BE ENTERED AT DEPARTURE: 12/17/18 14:00 Medical Decision Making Patient presenting to the emergency department for chief complaint of left hip pain. Patient states 2 days ago she was going up a ramp at [employer] and slipped and fell hitting her leg against the railing. Since then she has had pain to her left hip. Patient was in the hospital for outpatient imaging and decided to check into the emergency department for complaint of injury. Patient does state that she has been urinating frequently but otherwise denies any other symptoms. Physical exam shows significant ecchymosis to left lateral buttock and hip with tenderness to palpation of the pelvis mid and proximal femur. Patient otherwise is weightbearing, ambulatory, and full range of motion. Since patient was just here for abdominal CT I do not feel that any additional imaging is needed for the pelvis as these images will be already obtained but given that patient is complaining of fall with significant ecchymosis and thigh pain I do feel that radiological imaging of the femur is warranted but highly suspicious of more contusion. Given urinary frequency with no other complaints urinalysis was ordered. Pending review of imaging urinalysis came back and did show significant leukocyte esterase and WBCs with moderate bacteria. Patient placed upon Macrobid for UTI. Review of radiological imaging shows no acute findings. Patient to follow-up with primary care provider in regards to outpatient testing otherwise she may continue to apply ice to area of bruising and take acetaminophen. HPI General Mode of arrival: ambulatory . Date/Time Provider Initiated Documentation: 12/17/18 11:15 . Limitations to Documentation: no limitations . Information obtained by: patient . History of Present Illness 63 year old F presents to the emergency department with the chief complaint of fall, urinary frequency, described as moderate, with intensity rated at 8. Quality is described as aching and sharp, and is localized to the buttocks, left and lower extremity. Patient started experiencing this day(s) (2) and it has been constant. Patient did receive the following treatments prior to arrival, none Related Data Home Medications Medication Instructions Recorded Confirmed acetaminophen 650 mg PO TID PRN 06/03/15 12/17/18 acetaminophen [Mapap Extra 1,000 mg PO Q6H PRN 06/03/15 12/17/18 Strength] aspirin [Aspir-81] 81 mg PO DAILY 06/03/15 12/17/18 brimonidine 1 drp OD BID 06/03/15 12/17/18 cholecalciferol (vitamin D3) 2,000 units PO DAILY 06/03/15 12/17/18 clozapine [Clozaril] 200 mg PO .QHS 06/03/15 12/17/18 docusate sodium [Colace] 200 mg PO HS PRN 06/03/15 12/17/18 magnesium hydroxide [Milk of 30 ml PO DAILY PRN 06/03/15 12/17/18 Magnesia] metformin 1,000 mg PO BID 06/03/15 04/07/16 nystatin 1 applic TOPICAL BID PRN 06/03/15 12/17/18 ranitidine HCl 150 mg PO BID 06/03/15 12/17/18 simvastatin 20 mg PO DAILY 06/03/15 12/17/18 clozapine 100 mg PO DAILY 04/07/16 12/17/18 albuterol sulfate [ProAir HFA] 2 - 4 puff INHALATION .Q4-6 HOURS 12/17/18 12/17/18 PRN clonazepam 0.5 mg PO TID 12/17/18 12/17/18 cyclobenzaprine 5 mg PO .QHS PRN 12/17/18 12/17/18 latanoprost 1 drp .QHS 12/17/18 12/17/18 naproxen 375 mg PO BID 12/17/18 12/17/18 nicotine [Nicoderm CQ] 12/17/18 nitrofurantoin monohyd/m-cryst 100 mg PO BID #9 cap 12/17/18 [Macrobid] Previous Rx's Medication Instructions Recorded nitrofurantoin monohyd/m-cryst 100 mg PO BID #9 cap 12/17/18 [Macrobid] Allergies Allergy/AdvReac Type Severity Reaction Status Date / Time fluphenazine enanthate AdvReac Severe almost Unverified 12/17/18 11:06 [From Prolixin] last time they gave it to me fluphenazine HCl AdvReac Severe almost Unverified 12/17/18 11:06 [From Prolixin] last time they gave it to me haloperidol [From Haldol] AdvReac Mild doesn't Unverified 12/17/18 11:06 agree with me haloperidol lactate AdvReac Mild doesn't Unverified 12/17/18 11:06 [From Haldol] agree with me chlorpromazine HCl AdvReac Unknown per pt Unverified 12/17/18 11:06 [From Thorazine] list from [facility] codeine AdvReac Unknown pt list Unverified 12/17/18 11:06 from [facility] ibuprofen AdvReac Unknown per pt Unverified 12/17/18 11:06 [place] [facility] [place] AdvReac Unknown per pt Unverified 12/17/18 11:06 loist from [facility] paliperidone [From Invega] AdvReac Unknown per pt Unverified 12/17/18 11:06 [place] [facility] Penicillins AdvReac Unknown per pt Unverified 12/17/18 11:06 [place] [facility] Sulfa (Sulfonamide AdvReac Unknown per pt Unverified 12/17/18 11:06 Antibiotics) [place] [facility] General Stated Complaint: Orthopedic ALEX: 4 Review of Systems Constitutional Denies chills and Denies fever(s) Cardiovascular Denies dyspnea Respiratory Denies dyspnea Gastrointestinal Denies nausea and Denies vomiting Genitourinary Reports as per HPI, Denies hematuria, Reports urinary frequency, Denies dysuria and Reports urinary urgency Musculoskeletal Reports as per HPI, Denies deformity, Reports arthralgias (Left hip), Denies numbness and Denies tingling Integumentary/Breasts Reports other (Ecchymosis left hip) Neurologic Denies numbness and Denies tingling PFSH Social History Smoking/Tobacco Use Status: Current every day Drug use: Current Sobriety Do you feel safe in your relationship?: Yes Exam Const General: cooperative and no acute distress Orientation: alert, awake and oriented x3 Resp Effort & Inspection: normal respiratory effort and able to speak in complete sentences Auscultation: clear to auscultation bilaterally Cardio Rate: regular rate Rhythm: regular rhythm Heart Sounds: S1 normal and S2 normal GI Palpation: nontender Back/Spine/Pelvis Back: no CVA tenderness Neuro General: alert, awake and oriented x3 Extrem General: normal capillary refill Left lower extremity: full ROM, normal capillary refill, no joint enlargement, hip/thigh Details: tenderness Location: of the hip Location: laterally and over the great trochanter, of the proximal upper leg Location: anteriorly and of the mid upper leg Location: laterally and anteriorly and ecchymosis (Left anterior hip); no swelling, no crepitus and no deformity, knee Details: normal to inspection and normal ROM; no tenderness and lower leg Details: normal to inspection; no tenderness Course Vital Signs Temperature 36.4 C L 12/17/18 11:03 Pulse 121 H 12/17/18 11:03 Respiratory Rate 16 12/17/18 11:03 Blood Pressure 152/77 H 12/17/18 11:03 Pulse Oximetry 97 12/17/18 11:03 Temperature 36.4 C L 12/17/18 11:03 Temperature Source Skin 12/17/18 11:03 Pulse 121 H 12/17/18 11:03 Respiratory Rate 16 12/17/18 11:03 Respiratory Effort Non-Labored 12/17/18 11:03 Blood Pressure 152/77 H 12/17/18 11:03 Blood Pressure Position Sitting 12/17/18 11:03 Pulse Oximetry 97 12/17/18 11:03 Oxygen Delivery Method Room Air 12/17/18 11:03 Oxygen Flow Rate 0 12/17/18 11:03 Pain Level 8 12/17/18 11:03 Lab/Test Results Lab/Test Results: 12/17/18 11:30 Urine - Reflex from Ua Urine Culture - Pending Laboratory Tests Range/Units 12/17/18 11:30 Urine Color (Yellow) Yellow Urine Clarity (Clear) Clear Urine pH (5-8) 6.5 Ur Specific [place] (1.005-1.025) <= 1.005 Urine Protein (Negative) mg/dL Negative Urine Ketones (Negative) mg/dL Negative Urine Blood (Negative) Negative Urine Nitrite (Negative) Negative Urine Bilirubin (Negative) Negative Urine Urobilinogen (Up TO 0.2) EU/dL 0.2 Ur Leukocyte Esterase (Negative) Moderate H Urine RBC (0-2) Negative Urine WBC (0-5) HPF >50 Ur Epithelial Cells (Negative) HPF Few Urine Crystals (Negative) HPF Negative Urine Bacteria (Negative) HPF Moderate Urine Casts (Negative) LPF Negative Urine Mucus (Negative) Negative Ur Culture Indicated? Yes Urine Glucose (Negative) mg/dL Negative
--- NOTE | 2018-12-17 12:30 | DI.RAD_ITS ---
SYMPTOM/DIAGNOSIS: FELL, MID THIGH PAIN LEFT FEMUR: No fracture or dislocation is seen. The hip and knee joints are unremarkable as visualized. There is residual contrast in the urinary bladder and bowel from a CT performed earlier the same day. IMPRESSION: Negative left femur.
[2018-12-17] MEDS: MacroBID 100 MG CAP PO (13:24)
[2018-12-17 14:00] VITALS: BP 152/77; PULSE 121; RESP 16; TEMP 36.4; O2SAT 97
== END 2018-12-17 14:00 | disposition home or self-care (01) ==
PROVIDERS: Emergency Provider Nurse Practitioner Family; PCP Nurse Practitioner Family
DX: S70.12XA Contusion of left thigh, initial encounter (principal); S70.02XA Contusion of left hip, initial encounter; W01.198A Fall on same level from slipping, tripping and stumbling with subsequent striking against other object, initial encounter; R35.0 Frequency of micturition; N39.0 Urinary tract infection, site not specified; B96.1 Klebsiella pneumoniae [K. pneumoniae] as the cause of diseases classified elsewhere
CPT/HCPCS: 73552; 87077; 99284; 74177; 81003; 81015; 82565; 87086; 87186; J3490; Q9967

== ENCOUNTER 2018-12-18 09:12 | Outpatient (CLI) | payer MEDICARE, MEDICAID, SELFPAY ==
[2018-12-18 10:18] LABS: Abs Immature Grans 0.01 k/cumm (0.0-0.09); Absolute Basophil Count 0.03 k/cumm (0.0-0.2); Absolute Eosinophil Count 0.22 k/cumm (0.0-0.7); Absolute Lymphocyte Count 1.29 k/cumm (1.2-3.4); Absolute Monocyte Count 0.36 k/cumm (0.11-0.7); Absolute Neutrophil Count 5.19 k/cumm (1.2-6.7); Basophils % 0.4; Eosinophils % 3.1; HCT 34.7 % (36.0-46.0); HGB 11.3 g/dL (12.0-15.5); Immature Grans % 0.1; Lymphocytes % 18.2; Mean Corp. HGB Concentration 32.6 g/dL (32.0-36.0); Mean Corpuscular Hemoglobin 30.1 pg (27.0-33.0); Mean Corpuscular Volume 92.5 fL (80-95); Mean Platelet Volume 9.7 fL (8.0-11.0); Monocytes % 5.1; Neutrophils % 73.1; Platelet Count 266 x1000/uL (130-400); RBC 3.75 m/cumm (4.00-5.20); RBC Distribution Width 13.1 % (11.7-14.6)
[2018-12-18 10:56] LABS: CREATININE 0.94 mg/dL (0.55-1.02); Estimated GFR 59.76 (mL/min/1.73m2)
== END 2018-12-18 09:32 ==
PROVIDERS: Nurse Practitioner Psychiatric/Mental Health; PCP Nurse Practitioner Family; Visit Provider Nurse Practitioner Family
DX: F20.9 Schizophrenia, unspecified (principal); Z79.899 Other long term (current) drug therapy; R93.5 Abnormal findings on diagnostic imaging of other abdominal regions, including retroperitoneum; E11.9 Type 2 diabetes mellitus without complications
CPT/HCPCS: 36415; 82565; 85025

== ENCOUNTER 2019-01-02 15:43 | Outpatient (REF) | payer MEDICARE, MEDICAID, SELFPAY ==
[2019-01-02 20:54] LABS: HCT 32.1 % (36.0-46.0); HGB 10.4 g/dL (12.0-15.5); Mean Corp. HGB Concentration 32.4 g/dL (32.0-36.0); Mean Corpuscular Hemoglobin 29.8 pg (27.0-33.0); Mean Platelet Volume 10.3 fL (8.0-11.0); Platelet Count 269 x1000/uL (130-400); RBC 3.49 m/cumm (4.00-5.20); RBC Distribution Width 12.9 % (11.7-14.6); White Blood Cell Count 7.16 k/cumm (4.4-10.8)
[2019-01-02 21:27] LABS: Anion Gap 10.6 mmol/L (3-11); BUN 13 mg/dL (7-18); C-Reactive Protein 0.16 mg/dL (0.0-0.3); CO2 24.4 mmol/L (21.0-32.0); CREATININE 0.82 mg/dL (0.55-1.02); Calcium 9.5 mg/dL (8.5-10.1); Chloride 100 mmol/L (98-107); Glucose 102 mg/dL (70-100); Sodium 135 mmol/L (136-145)
[2019-01-02 21:41] LABS: ESR 30 MM/HR (0-30)
== END 2019-01-02 16:03 ==
LOC: NCHCN 15:43
PROVIDERS: PCP Family Medicine; Visit Provider Specialist/Technologist Athletic Trainer
DX: M25.50 Pain in unspecified joint (principal); E11.9 Type 2 diabetes mellitus without complications; R53.83 Other fatigue
CPT/HCPCS: 80048; 85027; 85652; 86140

== ENCOUNTER 2019-01-14 00:29 | Outpatient (CLI) | payer MEDICARE, MEDICAID, SELFPAY ==
--- NOTE | 2019-01-14 10:34 | DI.RAD_ITS ---
SYMPTOMS/DIAGNOSIS: BILATERAL KNEE PAIN, HIP PAIN, BACK PAIN, M25.559, M54.5 LEFT KNEE: Three views. No priors. The joint space is well maintained. The bones are intact. There is a small enthesophyte at the quadriceps insertion on the patella. The soft tissues are otherwise unremarkable. IMPRESSION: Negative left knee. RIGHT KNEE: Three views. There is mild narrowing and periarticular spurring in the medial femorotibial joint space. Chondrocalcinosis is present. The joint spaces are otherwise well maintained. The bones are intact. The soft tissues are unremarkable. IMPRESSION: Mild arthritic changes of the right knee. LUMBAR SPINE: AP, lateral and bilateral oblique views of the lumbar spine were obtained. There are five lumbar-type vertebral bodies. There is normal alignment. No spondylolysis or spondylolisthesis is seen. The disc heights appear well maintained. There are small osteophytes seen at the L3-4 and L4-5 disc spaces. Degenerative changes of the facets are seen at L5-S1. No acute fractures or subluxations are seen. Calcium is seen in the abdominal aorta. IMPRESSION: Mild degenerative changes in the lumbar spine. PELVIS AND BILATERAL HIPS: Three views. The hip joints are well maintained. The sacroiliac joints and symphysis pubis are unremarkable. The bones are intact and normally mineralized. There is a calcification again seen in the left pelvis. This was present on the CT scan from 12/17/18 and is nonspecific. This may represent a vascular calcification. IMPRESSION: Negative bilateral hips.
== END 2019-01-14 00:49 ==
PROVIDERS: PCP Family Medicine; Visit Provider Specialist/Technologist Athletic Trainer
DX: M25.561 Pain in right knee (principal); M25.562 Pain in left knee; M25.551 Pain in right hip; M25.552 Pain in left hip; M54.5 Low back pain; M17.11 Unilateral primary osteoarthritis, right knee; M47.816 Spondylosis without myelopathy or radiculopathy, lumbar region
CPT/HCPCS: 73521; 73562; 72110

== ENCOUNTER 2019-01-15 09:21 | Outpatient (CLI) | payer MEDICARE, MEDICAID, SELFPAY ==
[2019-01-15 10:01] LABS: Abs Immature Grans 0.02 k/cumm (0.0-0.09); Absolute Basophil Count 0.02 k/cumm (0.0-0.2); Absolute Eosinophil Count 0.15 k/cumm (0.0-0.7); Absolute Lymphocyte Count 1.09 k/cumm (1.2-3.4); Absolute Monocyte Count 0.44 k/cumm (0.11-0.7); Absolute Neutrophil Count 5.04 k/cumm (1.2-6.7); Basophils % 0.3; Eosinophils % 2.2; HGB 11.1 g/dL (12.0-15.5); Immature Grans % 0.3; Lymphocytes % 16.1; Mean Corp. HGB Concentration 32.6 g/dL (32.0-36.0); Mean Corpuscular Hemoglobin 30.4 pg (27.0-33.0); Mean Corpuscular Volume 93.2 fL (80-95); Mean Platelet Volume 9.4 fL (8.0-11.0); Monocytes % 6.5; Neutrophils % 74.6; Platelet Count 236 x1000/uL (130-400); RBC 3.65 m/cumm (4.00-5.20); RBC Distribution Width 13.5 % (11.7-14.6); White Blood Cell Count 6.76 k/cumm (4.4-10.8)
== END 2019-01-15 09:41 ==
PROVIDERS: PCP Family Medicine; Visit Provider Nurse Practitioner Psychiatric/Mental Health
DX: F20.9 Schizophrenia, unspecified (principal); Z79.899 Other long term (current) drug therapy
CPT/HCPCS: 36415; 85025

== ENCOUNTER → 2019-01-28 12:33 | Outpatient (BNVA) | payer MEDICARE, MEDICAID, SELFPAY | PROVIDERS: PCP Family Medicine; Visit Provider Nurse Practitioner Adult Health | DX: G43.109 Migraine with aura, not intractable, without status migrainosus; E11.9 Type 2 diabetes mellitus without complications; F17.210 Nicotine dependence, cigarettes, uncomplicated; I10 Essential (primary) hypertension | CPT/HCPCS: 99204; 99215 ==

== ENCOUNTER 2019-02-12 09:44 | Outpatient (CLI) | payer MEDICARE, MEDICAID, SELFPAY ==
[2019-02-12 10:43] LABS: Abs Immature Grans 0.01 k/cumm (0.0-0.09); Absolute Basophil Count 0.03 k/cumm (0.0-0.2); Absolute Eosinophil Count 0.11 k/cumm (0.0-0.7); Absolute Lymphocyte Count 1.39 k/cumm (1.2-3.4); Absolute Monocyte Count 0.36 k/cumm (0.11-0.7); Absolute Neutrophil Count 4.42 k/cumm (1.2-6.7); Basophils % 0.5; Eosinophils % 1.7; HCT 34.5 % (36.0-46.0); HGB 11.1 g/dL (12.0-15.5); Immature Grans % 0.2; Mean Corp. HGB Concentration 32.2 g/dL (32.0-36.0); Mean Corpuscular Hemoglobin 29.6 pg (27.0-33.0); Mean Platelet Volume 9.7 fL (8.0-11.0); Monocytes % 5.7; Neutrophils % 69.9; Platelet Count 296 x1000/uL (130-400); RBC 3.75 m/cumm (4.00-5.20); RBC Distribution Width 12.9 % (11.7-14.6); White Blood Cell Count 6.32 k/cumm (4.4-10.8)
== END 2019-02-12 10:04 ==
PROVIDERS: PCP Specialist/Technologist Athletic Trainer; Visit Provider Nurse Practitioner Psychiatric/Mental Health
DX: F20.9 Schizophrenia, unspecified (principal); Z79.899 Other long term (current) drug therapy
CPT/HCPCS: 36415; 85025

== ENCOUNTER 2019-03-13 13:45 | Outpatient (CLI) | payer MEDICARE, MEDICAID, SELFPAY ==
[2019-03-13 14:33] LABS: Abs Immature Grans 0.02 k/cumm (0.0-0.09); Absolute Basophil Count 0.01 k/cumm (0.0-0.2); Absolute Eosinophil Count 0.05 k/cumm (0.0-0.7); Absolute Lymphocyte Count 1.66 k/cumm (1.2-3.4); Absolute Monocyte Count 0.43 k/cumm (0.11-0.7); Absolute Neutrophil Count 5.38 k/cumm (1.2-6.7); Basophils % 0.1; Eosinophils % 0.7; HCT 34.4 % (36.0-46.0); HGB 11.1 g/dL (12.0-15.5); Immature Grans % 0.3; Mean Corp. HGB Concentration 32.3 g/dL (32.0-36.0); Mean Corpuscular Hemoglobin 29.4 pg (27.0-33.0); Mean Platelet Volume 9.7 fL (8.0-11.0); Monocytes % 5.7; Neutrophils % 71.2; Platelet Count 278 x1000/uL (130-400); RBC 3.78 m/cumm (4.00-5.20); White Blood Cell Count 7.55 k/cumm (4.4-10.8)
== END 2019-03-13 14:05 ==
PROVIDERS: PCP Specialist/Technologist Athletic Trainer; Visit Provider Nurse Practitioner Psychiatric/Mental Health
DX: F20.9 Schizophrenia, unspecified (principal); Z79.899 Other long term (current) drug therapy
CPT/HCPCS: 36415; 85025

== ENCOUNTER → 2019-03-17 09:26 | Outpatient (BNVA) | payer MEDICARE, MEDICAID, SELFPAY | PROVIDERS: PCP Specialist/Technologist Athletic Trainer; Visit Provider Nurse Practitioner Adult Health | DX: G43.109 Migraine with aura, not intractable, without status migrainosus (principal); G43.009 Migraine without aura, not intractable, without status migrainosus; J44.9 Chronic obstructive pulmonary disease, unspecified; E11.9 Type 2 diabetes mellitus without complications; F17.210 Nicotine dependence, cigarettes, uncomplicated; Z79.84 Long term (current) use of oral hypoglycemic drugs | CPT/HCPCS: 99213 ==

== ENCOUNTER 2019-04-09 09:30 | Outpatient (CLI) | payer MEDICARE, MEDICAID, SELFPAY ==
[2019-04-09 10:15] LABS: Abs Immature Grans 0.01 k/cumm (0.0-0.09); Absolute Basophil Count 0.04 k/cumm (0.0-0.2); Absolute Eosinophil Count 0.03 k/cumm (0.0-0.7); Absolute Lymphocyte Count 1.59 k/cumm (1.2-3.4); Absolute Neutrophil Count 4.31 k/cumm (1.2-6.7); Basophils % 0.6; Eosinophils % 0.5; HCT 34.8 % (36.0-46.0); HGB 10.9 g/dL (12.0-15.5); Immature Grans % 0.2; Lymphocytes % 24.9; Mean Corp. HGB Concentration 31.3 g/dL (32.0-36.0); Mean Corpuscular Hemoglobin 28.1 pg (27.0-33.0); Mean Corpuscular Volume 89.7 fL (80-95); Mean Platelet Volume 9.4 fL (8.0-11.0); Monocytes % 6.3; Neutrophils % 67.5; Platelet Count 291 x1000/uL (130-400); RBC 3.88 m/cumm (4.00-5.20); RBC Distribution Width 12.8 % (11.7-14.6); White Blood Cell Count 6.38 k/cumm (4.4-10.8)
== END 2019-04-09 09:50 ==
PROVIDERS: PCP Specialist/Technologist Athletic Trainer; Visit Provider Nurse Practitioner Psychiatric/Mental Health
DX: F20.9 Schizophrenia, unspecified (principal); Z79.899 Other long term (current) drug therapy
CPT/HCPCS: 36415; 85025

== ENCOUNTER 2019-05-06 09:03 | Outpatient (CLI) | payer MEDICARE, MEDICAID, SELFPAY ==
[2019-05-06 09:40] LABS: Abs Immature Grans 0.03 k/cumm (0.0-0.09); Absolute Basophil Count 0.01 k/cumm (0.0-0.2); Absolute Eosinophil Count 0.02 k/cumm (0.0-0.7); Absolute Neutrophil Count 6.04 k/cumm (1.2-6.7); Basophils % 0.1; Eosinophils % 0.3; HCT 34.3 % (36.0-46.0); HGB 10.8 g/dL (12.0-15.5); Immature Grans % 0.4; Lymphocytes % 17.5; Mean Corp. HGB Concentration 31.5 g/dL (32.0-36.0); Mean Corpuscular Hemoglobin 28.1 pg (27.0-33.0); Mean Corpuscular Volume 89.3 fL (80-95); Mean Platelet Volume 9.8 fL (8.0-11.0); Monocytes % 6.3; Neutrophils % 75.4; Platelet Count 269 x1000/uL (130-400); RBC 3.84 m/cumm (4.00-5.20); RBC Distribution Width 13.4 % (11.7-14.6)
== END 2019-05-06 09:23 ==
PROVIDERS: PCP Specialist/Technologist Athletic Trainer; Visit Provider Nurse Practitioner Psychiatric/Mental Health
DX: F20.9 Schizophrenia, unspecified (principal); Z79.899 Other long term (current) drug therapy
CPT/HCPCS: 36415; 85025

== ENCOUNTER 2019-06-02 09:15 | Outpatient (CLI) | payer MEDICARE, MEDICAID, SELFPAY ==
[2019-06-02 09:48] LABS: Abs Immature Grans 0.01 k/cumm (0.0-0.09); Absolute Basophil Count 0.02 k/cumm (0.0-0.2); Absolute Eosinophil Count 0.02 k/cumm (0.0-0.7); Absolute Lymphocyte Count 1.31 k/cumm (1.2-3.4); Absolute Neutrophil Count 4.74 k/cumm (1.2-6.7); Basophils % 0.3; Eosinophils % 0.3; HCT 34.2 % (36.0-46.0); HGB 11.2 g/dL (12.0-15.5); Immature Grans % 0.2; Lymphocytes % 19.8; Mean Corp. HGB Concentration 32.7 g/dL (32.0-36.0); Mean Corpuscular Hemoglobin 28.3 pg (27.0-33.0); Mean Corpuscular Volume 86.4 fL (80-95); Mean Platelet Volume 9.3 fL (8.0-11.0); Monocytes % 7.6; Neutrophils % 71.8; Platelet Count 286 x1000/uL (130-400); RBC 3.96 m/cumm (4.00-5.20); RBC Distribution Width 13.7 % (11.7-14.6)
== END 2019-06-02 09:35 ==
PROVIDERS: PCP Specialist/Technologist Athletic Trainer; Visit Provider Nurse Practitioner Psychiatric/Mental Health
DX: F20.9 Schizophrenia, unspecified (principal); Z79.899 Other long term (current) drug therapy
CPT/HCPCS: 36415; 85025

== ENCOUNTER 2019-06-30 09:08 | Outpatient (CLI) | payer MEDICARE, MEDICAID, SELFPAY ==
[2019-06-30 09:47] LABS: Abs Immature Grans 0.02 k/cumm (0.0-0.09); Absolute Basophil Count 0.02 k/cumm (0.0-0.2); Absolute Lymphocyte Count 1.36 k/cumm (1.2-3.4); Absolute Monocyte Count 0.59 k/cumm (0.11-0.7); Basophils % 0.2; Eosinophils % 1.2; HCT 34.6 % (36.0-46.0); HGB 11.2 g/dL (12.0-15.5); Immature Grans % 0.2 %; Lymphocytes % 16.4; Mean Corp. HGB Concentration 32.4 g/dL (32.0-36.0); Mean Corpuscular Volume 86.5 fL (80-95); Mean Platelet Volume 9.5 fL (8.0-11.0); Monocytes % 7.1; Neutrophils % 74.9; Platelet Count 306 x1000/uL (130-400); RBC Distribution Width 14.2 % (11.7-14.6); White Blood Cell Count 8.29 k/cumm (4.4-10.8)
== END 2019-06-30 09:28 ==
PROVIDERS: PCP Specialist/Technologist Athletic Trainer; Visit Provider Nurse Practitioner Psychiatric/Mental Health
DX: F20.9 Schizophrenia, unspecified (principal); Z79.899 Other long term (current) drug therapy
CPT/HCPCS: 36415; 85025

== ENCOUNTER → 2019-07-14 12:54 | Outpatient (BNVA) | payer MEDICARE, MEDICAID, SELFPAY | PROVIDERS: PCP Specialist/Technologist Athletic Trainer; Referring Provider Specialist/Technologist Athletic Trainer; Visit Provider Nurse Practitioner Adult Health | DX: G43.009 Migraine without aura, not intractable, without status migrainosus (principal); G43.109 Migraine with aura, not intractable, without status migrainosus; R53.1 Weakness; R29.6 Repeated falls | CPT/HCPCS: 99213 ==

== ENCOUNTER 2019-07-28 09:51 | Outpatient (CLI) | payer MEDICARE, MEDICAID, SELFPAY ==
[2019-07-28 10:25] LABS: Abs Immature Grans 0.02 k/cumm (0.0-0.09); Absolute Basophil Count 0.02 k/cumm (0.0-0.2); Absolute Eosinophil Count 0.07 k/cumm (0.0-0.7); Absolute Lymphocyte Count 1.47 k/cumm (1.2-3.4); Absolute Monocyte Count 0.85 k/cumm (0.11-0.7); Basophils % 0.2; Eosinophils % 0.7; HCT 34.8 % (36.0-46.0); HGB 11.2 g/dL (12.0-15.5); Immature Grans % 0.2 %; Lymphocytes % 14.8; Mean Corp. HGB Concentration 32.2 g/dL (32.0-36.0); Mean Corpuscular Hemoglobin 27.7 pg (27.0-33.0); Mean Corpuscular Volume 86.1 fL (80-95); Mean Platelet Volume 9.4 fL (8.0-11.0); Monocytes % 8.6; Neutrophils % 75.5; Platelet Count 342 x1000/uL (130-400); RBC 4.04 m/cumm (4.00-5.20); RBC Distribution Width 14.4 % (11.7-14.6); White Blood Cell Count 9.93 k/cumm (4.4-10.8)
== END 2019-07-28 10:11 ==
PROVIDERS: PCP Specialist/Technologist Athletic Trainer; Visit Provider Nurse Practitioner Psychiatric/Mental Health
DX: F20.9 Schizophrenia, unspecified (principal); Z79.899 Other long term (current) drug therapy
CPT/HCPCS: 36415; 85025

== ENCOUNTER 2019-08-28 09:48 | Observation (INO) | payer MEDICARE, MEDICAID, SELFPAY ==
[2019-08-28 09:56] VITALS: BP 155/69; PULSE 93; TEMP 36.5; O2SAT 97
[2019-08-28 11:26] LABS: Abs Immature Grans 0.01 k/cumm (0.0-0.09); Absolute Basophil Count 0.03 k/cumm (0.0-0.2); Absolute Eosinophil Count 0.11 k/cumm (0.0-0.7); Absolute Lymphocyte Count 1.37 k/cumm (1.2-3.4); Absolute Monocyte Count 0.41 k/cumm (0.11-0.7); Basophils % 0.4; Eosinophils % 1.4; HCT 33.6 % (36.0-46.0); HGB 11.1 g/dL (12.0-15.5); Immature Grans % 0.1 %; Lymphocytes % 17.5; Mean Corpuscular Volume 87.7 fL (80-95); Mean Platelet Volume 9.8 fL (8.0-11.0); Monocytes % 5.2; Neutrophils % 75.4; Platelet Count 312 x1000/uL (130-400); RBC 3.83 m/cumm (4.00-5.20); RBC Distribution Width 14.3 % (11.7-14.6); White Blood Cell Count 7.83 k/cumm (4.4-10.8)
[2019-08-28 11:41] LABS: ALT 16 U/L (14-59); AST 13 U/L (15-37); Albumin 3.8 g/dL (3.4-5.0); Alkaline Phosphatase 136 U/L (46-116); Anion Gap 10.6 mmol/L (3-11); BUN 17 mg/dL (7-18); Bilirubin, Total 0.3 mg/dL (0.2-1.0); CO2 23.4 mmol/L (21.0-32.0); Calcium 9.7 mg/dL (8.5-10.1); Chloride 104 mmol/L (98-107); Estimated GFR 37.62 (mL/min/1.73m2); Glucose 208 mg/dL (74-106); Potassium 5.2 mmol/L (3.5-5.1); Sodium 138 mmol/L (136-145); Total Protein 7.9 g/dL (6.4-8.2)
[2019-08-28 11:46] LABS: Troponin I < 0.05 ng/Ml (<0.06)
[2019-08-28 12:19] LABS: Bilirubin Negative (Negative); Blood Moderate (Negative); Clarity Cloudy (Clear); Glucose Negative (Negative); Ketones Negative (Negative); Leukocyte Esterase Large (Negative); Nitrite Negative (Negative); Urobilinogen 0.2 EU/dL (Up TO 0.2); pH 5.5 (5-8)
[2019-08-28 12:33] LABS: Bacteria Many HPF (Negative); C & S Indicated? C&S Done As Ordered; WBC >50 HPF (0-5)
--- NOTE | 2019-08-28 13:00 | PDOC.MHCN_ITS ---
Date of service: 08/28/19 Time of Service: 12:00 Mental Health Crisis Note Presenting Issue How did you arrive at the ED and why did you come: Client was transported by [facility] from [facility], in [facility], to get blood work completed by [facility]. Client fell when getting into the [facility] transport. Client was asked to be screened by mental health. Precipitating Factors Client shared that she is depressed and has been thinking about we never know when our last day will be. Client said that she was feeling suicidal but, didn't have a plan. Client was very concerned about her medical health. Client said she didn't trust the care providers at the [facility] and shared with the medical provider, in the ED, that she felt like she was being over medicated. Client shareed with this senior underwriter that she felt take 12 pills in the morning and at night is too many pills, and too many possible side effects. Client shared that she is concerned about the other residence at the assisted and their health as well. SHe shared that she is fearful of staff at the assisted becasue they make her go to PT and dont let her worry about her own life. Disposition BEHAVIOR: Client presented as cooperative and calm EYE CONTACT: CLient was able to maintain appropriate eye contact when she was sharing something, when she was listening to this senior underwriter she chose to look at her hands. MOOD: Client appeared to be sullen. APPETITE: Flat and saddened SLEEP(trouble falling/staying asleep: Client denies issues with sleeping patterns. Plan Client will get x-rays for bruise on elbow. once client is medically cleared client will go back to the residential assisted in [facility]. Client will continue to try to focus on the positive things going on in her life. She will be scheduled to go on a community outing through [employer] staff next week. Client will follow medical discharge recommendations and follow up with the PCP. 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
--- NOTE | 2019-08-28 13:10 | DI.RAD_ITS ---
EXAM: XR ELBOW RT COMPLETE CLINICAL HISTORY: pain. TECHNIQUE: 2D digital imaging was performed. COMPARISON: No exams were available for comparison FINDINGS: BONES: There is a nondisplaced fracture involving the superior aspect of the medial epicondyle of the right humerus. No bony destructive lesion is seen. JOINTS: The elbow is normally aligned. No joint effusion is seen. SOFT TISSUE: Normal. IMPRESSION: Nondisplaced fracture involving the superior aspect of the medial epicondyle of the right humerus. DATA REPOSITORY: RADIATION DOSE DELIVERED:
--- NOTE | 2019-08-28 13:38 | NUR.NOTE ---
pt provided with hot tea Nursing Note:
[2019-08-28 14:25] VITALS: BP 123/61; PULSE 77; RESP 18; TEMP 37; O2SAT 96
[2019-08-28 16:10] VITALS: PULSE 101
--- NOTE | 2019-08-28 16:28 | ED.GENADUL_ITS ---
Discharge Plan Disposition Patient Disposition: [facility] INPATIENT Condition: Stable Discharge Details Chief Complaint: PsychEval Clinical Impression: Fracture of elbow, Depression, Acute UTI, Dizziness Admit Date/Time: 08/28/19 18:16 Admit Provider: Usman Brewer Attending Provider: Usman Brewer Primary Care Provider: Anmol Garcia ED Provider: Shae Stout Discharge Instructions Forms: Nursing Discharge Form Discharge Data Discharge Date/Time-TO BE ENTERED AT DEPARTURE: 08/28/19 19:42 Medical Decision Making Is a 64-year-old patient presenting to the emergency room for compla-ints of feeling off balance and having frequent falls. Patient reports approximately 5 falls in the last 2 months. Patient is concerned as she feels she is overmedicated with her psych medications. Patient reports depression and suicidal ideation which are her baseline. Patient is concerned that she does not feel she is received appropriate care for mental health and she no longer wants to live in her current [facility]. Patient reports she fell today when transferring out of her vehicle. Patient denies any new sites of injury or concern but does again report frequent falls. Patient is complaining of right elbow pain as a result of a fall approximately 1 month ago. Patient reports chronic pain through her neck and her back which seems unchanged. Patient denies any headache currently or loss of consciousness today. Patient denies use of blood thinners. Patient does report she is concerned with being overmedicated as well as she is concerned with her balance being related to a known intracranial aneurysm. Patient does have history of repair of an adjacent aneurysm approximately 10 years ago. Patient does follow with her specialists. Patient unsure as to when she was last imaged. Patient denies any associated concern of chest pain, difficulty beating shortness of breath or wheezing. Has no concern of active infection as she has no fevers or chills. Has been eating and drink without difficulty. Denies abdominal pain or urinary symptoms. Patient requesting mental health evaluation to be sure she is being managed appropriately, patient reports she does not want a return to her living facility and she is concerned with her frequency of falls. Patient does report she is currently undergoing physical therapy. Initial evaluation of the patient reveals an intact neurologic exam. Patient is alert and oriented x3. Patient is ambulating without difficulty, no ataxic gait noted. I did note that she lost her balance reaching for the wall when she was looking for her chair. Patient is not ill-appearing at this time. Vital signs are stable. Patient is afebrile. Will check labs. Will request mental health evaluation as patient is endorsing suicidal ideation which she does report is her baseline and she does not report any intent to act on her suicidal ideation. She does report concern with persistent depression. Patient's initial EKG reveals sinus rhythm with low voltage, rate of 80. No ST segment changes. Reviewed with Jama Corea. Patient's labs reveal no leukocytosis, baseline H&H. Patient's initial potassium noted to be 5.2 and creatinine 1.40. Patient's baseline creatinine noted to be 0.8 -0.9. This is a notable change in her kidney function. Patient's initial troponin negative. Patient's urinalysis is remarkable for moderate amounts of blood, large leukocyte esterase and greater than 50 white blood cell, many bacteria present. Patient was provided 1 L of IV fluid. Mental health evaluated patient and do not feel patient requires inpatient admission at this time for mental health concerns. They do feel she is stable to follow-up in the community as this is her baseline mental health and they are familiar with her. Spoke with patient's caregiver who does report approximately 5 falls in the last 2 months. She does report increase in frequency of her complaints. Otherwise she feels that this patient has had complaints of dizziness for several months. She was evaluated by neurology locally as well as has been followed by her PCP. She is currently undergoing physical therapy. Spoke with Dr. Cherry Velazquez of neurology who reviewed patient's medical chart. Patient has a coil in place from her surgical repair in 2008 of her intracranial aneurysm. Patient does have a known intracranial aneurysm currently which has been followed over the last decade and has remained stable. After discussion of case neurology feels that given her benign neurologic exam at this time, lack of headache aneurysm is unlikely bleeding or the source of her dizziness and do not feel he requires immediate imaging at this time. On patient's medical chart from her visit in June she did have 2 recent falls. Spoke with Dr. Pérez of orthopedics regarding patient's elbow fracture. He does recommend CT imaging at this time which is unfortunately currently unavailable as [facility] CT machine is being repaired. Given inability to CT at this time he recommends posterior splint, sling and follow-up in the office. He did review patient's x-rays. Discussed inpatient management versus discharge home with antibiotic treatment. Patient is concerned as she reports persistent dizziness at this time although patient has ambulated without significant difficulty in the emergency room. Patient does have a urinary tract infection for which I did offer outpatient management however patient does not feel comfortable with outpatient management at this time given her fall today and frequent falls recently, complains of increasing frequency and severity of her dizziness and her symptoms. Spoke with Dr. Alvarenga who will admit patient as observation. Pt caregiver is Vanesa; with whom pt case was discussed; her contact [phone] home; daytime phone [phone] Pt psych practitioner Shae Contreras. HUGO PCP: [facility] HPI General Date/Time Provider Initiated Documentation: 08/28/19 10:25 . HPI Narrative: This is a pleasant 64-year-old patient presenting to the emergency room for concerns of feeling off balance and complaining of frequent falls. Patient is concerned that she is overmedicated with psych medications. Patient arrives via [facility] and reports a fall when getting out of her vehicle. Patient denies any new concerns of pain but does report approximately 5 falls in the last 2 months. Patient does report she does have intermittent headaches. Denies obviously s triking her head. Patient does report intermittent headaches which can be as severe as 8 out of 10. Patient denies any headache at this time. Patient reports dizziness. Patient does report that she does have diffuse chronic pain. Patient reports neck and back pain. Patient complaining of right elbow pain. Patient again states that she fell today but denies any new sites of pain. Patient denies chest pain, difficulty breathing or shortness of breath or wheezing. Patient denies abdominal pain. Patient denies dysuria, urgency or frequency. Patient denies fevers, chills, nausea, vomiting. No bowel changes. Patient does report eating and drinking without difficulty. Patient reports that she is compliant with her psych medications but does report depression. Patient states she does not wish to reside in the [facility] she is in. Patient is in [facility] with her brother. Patient does report suicidal ideation but no plan or intent. Patient reports she has had vague suicidal ideation and depression for several years and this seems unchanged to current. Patient is concerned as she reports she does have a known brain aneurysm. She did have a surgical repair of her brain aneurysm approximately 10 years ago and has a known adjacent aneurysm which has been followed by neurology. Patient denies any recent imaging. Patient denies any drug or alcohol use. Denies any delusion or hallucination at this time. Patient reports she is currently working with [facility] but does not feel there taking appropriate care of her and only overmedicate her. Patient is interested in obtaining a care bed. Denies any other concerns or complaints at this time. Denies upper respiratory symptoms. Denies cough. Related Data Home Medications Medication Instructions Recorded Confirmed cholecalciferol (vitamin D3) 2,000 units PO DAILY 06/03/15 08/28/19 ranitidine HCl 150 mg PO BID 06/03/15 08/28/19 simvastatin 20 mg PO HS 06/03/15 08/28/19 latanoprost 1 drp .QHS 12/17/18 08/28/19 naproxen 375 mg PO BID PRN 12/17/18 08/28/19 docusate sodium 100 mg capsule 100 mg PO HS cap 01/14/19 08/28/19 gabapentin 100 mg capsule 100 mg PO DIRECTED #60 cap 03/17/19 08/28/19 acetylcysteine 600 mg capsule 1,200 mg PO BID cap 07/14/19 07/14/19 aspirin 81 mg tablet 81 mg PO DAILY 07/14/19 08/28/19 brimonidine 0.2 %-timolol 0.5 % 1 drp OP BID 07/14/19 07/14/19 eye drops clonazepam 0.5 mg tablet 0.25 mg PO BID tab 07/14/19 08/28/19 clozapine 100 mg tablet See Rx Instructions .ROUTE 07/14/19 08/28/19 .COMPLEX tab acetaminophen 1,000 mg PO BID PRN 08/28/19 08/28/19 albuterol sulfate [ProAir HFA] 2 inh INHALATION Q4H PRN 08/28/19 08/28/19 clotrimazole-betamethasone 1 applic TOPICAL BID PRN 08/28/19 08/28/19 [Lotrisone] cyclobenzaprine 5 mg PO HS PRN 08/28/19 08/28/19 magnesium hydroxide [Milk of 30 ml PO DAILY PRN 08/28/19 08/28/19 Magnesia] metformin 750 mg PO BID 08/28/19 08/28/19 nicotine [Nicoderm CQ] 2 mg TRANSDERMAL Q24H 08/28/19 08/28/19 nystatin 1 applic TOPICAL PRN PRN 08/28/19 08/28/19 polyethylene glycol 3350 [Miralax] 17 g PO DAILY 08/28/19 08/28/19 brimonidine-timolol [Combigan] 1 drp OPHTHALMIC (EYE) BID 08/30/19 08/30/19 citalopram 10 mg PO QHS 08/30/19 08/30/19 clozapine 25 mg PO DAILY 08/30/19 08/30/19 docusate sodium [Colace] 100 mg PO TID PRN PRN #20 cap 08/30/19 levofloxacin [Levaquin] 750 mg PO Q24H #10 tab 08/30/19 melatonin 3 mg PO HS 08/30/19 08/30/19 olanzapine 2.5 mg PO Q8H PRN 08/30/19 08/30/19 Previous Rx's Medication Instructions Recorded gabapentin 100 mg capsule 100 mg PO DIRECTED #60 cap 03/17/19 docusate sodium [Colace] 100 mg PO TID PRN PRN #20 cap 08/30/19 levofloxacin [Levaquin] 750 mg PO Q24H #10 tab 08/30/19 Allergies Allergy/AdvReac Type Severity Reaction Status Date / Time fluphenazine enanthate AdvReac Severe almost Verified 08/28/19 09:59 [From Prolixin] last time they gave it to me fluphenazine HCl AdvReac Severe almost Verified 08/28/19 09:59 [From Prolixin] last time they gave it to me haloperidol [From Haldol] AdvReac Mild doesn't Verified 08/28/19 09:59 agree with me haloperidol lactate AdvReac Mild doesn't Verified 08/28/19 09:59 [From Haldol] agree with me chlorpromazine HCl AdvReac Unknown per pt Verified 08/28/19 09:59 [From Thorazine] list from [facility] codeine AdvReac Unknown pt list Verified 08/28/19 09:59 from [facility] ibuprofen AdvReac Unknown per pt Verified 08/28/19 09:59 list from [facility] nicotine AdvReac Unknown per pt Verified 08/28/19 09:59 loist from [facility] paliperidone [From Inve[facility]] AdvReac Unknown per pt Verified 08/28/19 09:59 list from [facility] Penicillins AdvReac Unknown per pt Verified 08/28/19 09:59 list from [facility] Sulfa (Sulfonamide AdvReac Unknown per pt Verified 08/28/19 09:59 Antibiotics) list from [facility] General Stated Complaint: PsychEval ALEX: 2 Review of Systems All systems reviewed & are unremarkable except as noted in HPI and below Constitutional Constitutional: Denies chills, Denies fatigue, Denies fever(s), Reports headache(s) (no SHAH at this time. ), Denies lethargy and Denies malaise Eyes Eyes: Denies blurry vision, Denies change in vision, Denies diplopia, Denies eye pain and Denies photophobia ENT Ears, Nose, Mouth, and Throat: Denies dizziness, Reports headache(s) (no SHAH at t his time. ) and Reports neck pain (chronic) Cardiovascular Cardiovascular: Denies chest pain, Denies syncope, Denies palpitations, Denies dyspnea and Denies dyspnea on exertion Respiratory Respiratory: Denies cough, Denies dyspnea, Denies dyspnea on exertion and Denies wheezing Gastrointestinal Gastrointestinal: Denies abdominal pain, Denies diarrhea, Denies nausea and Denies vomiting Genitourinary Genitourinary: Denies hematuria and Denies dysuria Musculoskeletal Musculoskeletal: Denies abnormal gait, Reports back pain (chronic), Denies deformity, Reports joint swelling (right elbow), Denies limited range of motion, Reports neck pain (chronic), Denies numbness, Denies radiating pain into limb and Denies tingling Neurologic Neurologic: Denies abnormal movements, Denies abnormal speech, Denies abnormal gait, Denies confusion, Denies dizziness, Denies syncope, Reports headache(s) (no SHAH at this time. ), Denies focal weakness, Denies numbness, Denies tingling and Denies paresthesias Psychiatric Psychiatric: Denies anxiety, Denies confusion, Reports depression, Denies hallucinations, Denies homicidal ideation and Reports suicidal ideation Endocrine Endocrine: Denies fatigue and Denies palpitations Allergic/Immunologic Allergic/Immunologic: Denies wheezing [facility] Medical History Auditory hallucinations (Acute) Back pain (Acute) Calcium kidney stone (Acute) Chronic constipation (Acute) COPD (chronic obstructive pulmonary disease) (Chronic) Depressive disorder (Acute) Diabetes mellitus (Chronic) Fatigue (Acute) Fracture of orbital floor, left side, sequela (Acute) GERD (gastroesophageal reflux disease) (Chronic) Glaucoma (Chronic) Headache (Acute) Hip pain, bilateral (Acute) Hyperlipidemia (Acute) Hypertension (Chronic) Insomnia (Acute) Intracranial aneurysm (Chronic) Knee pain, bilateral (Acute) Low back pain (Acute) Lumbar back pain (Acute) Migraine headache with aura (Acute) Migraine headache without aura (Acute) Osteoarthritis (Chronic) Overweight (Acute) Paranoid schizophrenia (Acute) Polyarthralgia (Acute) Tobacco use disorder (Acute) Umbilical hernia without mention of obstruction or gangrene (Acute) Urinary frequency (Acute) Vitamin D deficiency (Acute) Surgical History (Updated 08/28/19 @ 22:27 by Usman Brewer) History of bilateral tubal ligation (Acute) Status post coil embolization of cerebral aneurysm (Acute) Family History Father Colon cancer Renal cancer Sister Breast cancer Mother Abdominal aortic aneurysm Brother Psychiatric illness Social History Smoking/Tobacco Use Status: Current every day Tobacco Type: cigarettes Alcohol Intake: former Drug use: Current Sobriety Substance use type: does not use Do you feel safe at home: No Do you feel safe in your relationship?: Yes Exam Narrative Exam Narrative: CONST: Well hydrated. Alert and oriented x3. HENMT: Head nomocephalic, normal to inspection. Atraumatic. Hearing grossly normal. TMs appear normal bilaterally. No pharyngeal erythema. Mucous membranes moist. EYES: General normal appearance. Alignment normal. Eyelids normal. Conjunctiva normal. Horizontal nystagmus present. NECK: Normal visual inspection. FROM. Trachea midline. Mild midline and paraspinal tenderness. Patient reports baseline. CHEST: Normal insepection of the chest. RESP: Normal respiratory effort. Speaking full sentences. No cough. No audible wheezing. No retractions. Breath sounds are clear, full and equal bilaterally. No wheezing, rhonchi or rales CARDIO: No JVD. No murmur. Regular rate and rhythm. MUSCULOSKELETAL: Normal Gait, no ataxic gait. FROM of all extremities. Right arm exam does reveal mild swelling of the right elbow. Mild pain with palpation over the medial epicondyle. Mild pain with range of motion of the elbow. No wrist pain with palpation, hand pain with palpation. Pulses intact distal neurovascularly intact. Left arm exam normal. Strength equal bilaterally in the upper extremities. Lower extremities reveal straight leg raise with no pain. Distal neurovascularly intact. No distal swelling or edema present. SKIN: Normal. Dry. No rashes. Ulcer noted to the left fourth toe dorsally wi th mild surrounding inflammation without associated cellulitis at this time. NEURO: Alert and awake. Speech clear. Alert and oriented x 3. Speech is clear. Cranial nerves intact as tested III - XI. Normal Amdcov-da-ithq test. Normal heel-danielle test. Gait normal. Strength intact in all extremities. Sensation intact in all extremities. PSYCH: Flat affect. Cooperative. Course Vital Signs Vital signs: Vital Signs Temperature 36.5 C 08/28/19 09:56 Pulse 93 H 08/28/19 09:56 Blood Pressure 155/69 H 08/28/19 09:56 Pulse Oximetry 97 08/28/19 09:56 Temperature 37.0 C 08/28/19 14:25 Temperature Source Skin 08/28/19 14:25 Pulse 77 08/28/19 14:25 Pulse Rhythm Regular 08/28/19 14:25 Pulse Strength Normal 08/28/19 14:25 Respiratory Rate 18 08/28/19 14:25 Respiratory Effort 08/28/19 14:25 Respiratory Depth Normal 08/28/19 14:25 Respiratory Pattern Normal 08/28/19 14:25 Blood Pressure 123/61 08/28/19 14:25 Blood Pressure Mean 81 08/28/19 14:25 Blood Pressure Position Supine 08/28/19 14:25 Pulse Oximetry 96 08/28/19 14:25 Oxygen Delivery Method Room Air 08/28/19 14:25 Oxygen Flow Rate 0 08/28/19 14:25 Pain Level 0 08/28/19 09:56 Lab/Test Results Lab/Test Results: 08/28/19 12:07 Urine - Clean Catch Urine Culture - Pending Laboratory Tests Range/Units 08/28/19 08/28/19 08/28/19 11:15 11:15 11:15 WBC (4.4-10.8) k/cumm 7.83 RBC (4.00-5.20) m/cumm 3.83 L Hgb (12.0-15.5) g/dL 11.1 L Hct (36.0-46.0) % 33.6 L MCV (80-95) fL 87.7 MCH (27.0-33.0) pg 29.0 MCHC (32.0-36.0) g/dL 33.0 RDW (11.7-14.6) % 14.3 Plt Count (130-400) x1000/uL 312 MPV (8.0-11.0) fL 9.8 Immature Gran % % 0.1 Neutrophils % 75.4 Lymphocytes % 17.5 Monocytes % 5.2 Eosinophils % 1.4 Basophils % 0.4 Absolute Neutrophils (1.2-6.7) k/cumm 5.90 Absolute Lymphocytes (1.2-3.4) k/cumm 1.37 Absolute Monocytes (0.11-0.7) k/cumm 0.41 Absolute Eosinophils (0.0-0.7) k/cumm 0.11 Absolute Basophils (0.0-0.2) k/cumm 0.03 Sodium (136-145) mmol/L 138 Potassium (3.5-5.1) mmol/L 5.2 H Chloride (98-107) mmol/L 104 Carbon Dioxide (21.0-32.0) mmol/L 23.4 Anion Gap (3-11) mmol/L 10.6 BUN (7-18) mg/dL 17 Creatinine (0.55-1.02) mg/dL 1.40 H Estimated GFR/1.73 m2 (mL/min/1.73m2) 37.62 Glucose (74-106) mg/dL 208 H Calcium (8.5-10.1) mg/dL 9.7 Total Bilirubin (0.2-1.0) mg/dL 0.3 AST (15-37) U/L 13 L ALT (14-59) U/L 16 Alkaline Phosphatase (46-116) U/L 136 H Troponin I (<0.06) ng/Ml < 0.05 Total Protein (6.4-8.2) g/dL 7.9 Albumin (3.4-5.0) g/dL 3.8 Urine Color (Yellow) Urine Clarity (Clear) Urine pH (5-8) Ur Specific Stewart (1.005-1.025) Urine Protein (Negative) mg/dL Urine Ketones (Negative) mg/dL Urine Blood (Negative) Urine Nitrite (Negative) Urine Bilirubin (Negative) Urine Urobilinogen (Up TO 0.2) EU/dL Ur Leukocyte Esterase (Negative) Urine RBC Urine WBC (0-5) HPF Ur Epithelial Cells Urine Crystals Urine Bacteria (Negative) HPF Urine Mucus Ur Culture Indicated? Urine Glucose (Negative) mg/dL Range/Units 08/28/19 12:07 WBC (4.4-10.8) k/cumm RBC (4.00-5.20) m/cumm Hgb (12.0-15.5) g/dL Hct (36.0-46.0) % MCV (80-95) fL MCH (27.0-33.0) pg MCHC (32.0-36.0) g/dL RDW (11.7-14.6) % Plt Count (130-400) x1000/uL MPV (8.0-11.0) fL Immature Gran % % Neutrophils % Lymphocytes % Monocytes % Eosinophils % Basophils % Absolute Neutrophils (1.2-6.7) k/cumm Absolute Lymphocytes (1.2-3.4) k/cumm Absolute Monocytes (0.11-0.7) k/cumm Absolute Eosinophils (0.0-0.7) k/cumm Absolute Basophils (0.0-0.2) k/cumm Sodium (136-145) mmol/L Potassium (3.5-5.1) mmol/L Chloride (98-107) mmol/L Carbon Dioxide (21.0-32.0) mmol/L Anion Gap (3-11) mmol/L BUN (7-18) mg/dL Creatinine (0.55-1.02) mg/dL Estimated GFR/1.73 m2 (mL/min/1.73m2) Glucose (74-106) mg/dL Calcium (8.5-10.1) mg/dL Total Bilirubin (0.2-1.0) mg/dL AST (15-37) U/L ALT (14-59) U/L Alkaline Phosphatase (46-116) U/L Troponin I (<0.06) ng/Ml Total Protein (6.4-8.2) g/dL Albumin (3.4-5.0) g/dL Urine Color (Yellow) Yellow Urine Clarity (Clear) Cloudy Urine pH (5-8) 5.5 Ur Specific Stewart (1.005-1.025) 1.020 Urine Protein (Negative) mg/dL Negative Urine Ketones (Negative) mg/dL Negative Urine Blood (Negative) Moderate H Urine Nitrite (Negative) Negative Urine Bilirubin (Negative) Negative Urine Urobilinogen (Up TO 0.2) EU/dL 0.2 Ur Leukocyte Esterase (Negative) Large H Urine RBC Not Applicable Urine WBC (0-5) HPF >50 H Ur Epithelial Cells Not Applicable Urine Crystals Not Applicable Urine Bacteria (Negative) HPF Many Urine Mucus Not Applicable Ur Culture Indicated? C&s done as ordered Urine Glucose (Negative) mg/dL Negative Procedures Orthopedic Splinting/Casting Injury #1: Side: right Upper Extremity Immobilizer: posterior splint
[2019-08-28 16:39] LABS: ALT 18 U/L (14-59); AST 14 U/L (15-37); Albumin 3.8 g/dL (3.4-5.0); Alkaline Phosphatase 140 U/L (46-116); Anion Gap 12.8 mmol/L (3-11); BUN 15 mg/dL (7-18); Bilirubin, Total 0.3 mg/dL (0.2-1.0); CO2 23.2 mmol/L (21.0-32.0); CREATININE 1.31 mg/dL (0.55-1.02); Calcium 9.4 mg/dL (8.5-10.1); Chloride 98 mmol/L (98-107); Estimated GFR 40.62 (mL/min/1.73m2); Glucose 272 mg/dL (74-106); Potassium 4.3 mmol/L (3.5-5.1); Sodium 134 mmol/L (136-145)
--- NOTE | 2019-08-28 17:00 | PDOC.ERCMPRO ---
Care Management Progress Note CM met with Dary of [facility] who stated Nya was requesting psychiatric stabilization but did not meet criteria at this time. Dary reported Nya wanted a break from [facility], which unfortunately was unavailable to her at this time. Dary reported speaking with john and Vanesa at [facility] who agreed to come to [facility] to transport Nya home.
[2019-08-28] MEDS: cefTRIAXone 1 GM VIAL IM (17:37)
[2019-08-28 18:18] VITALS: BP 123/61; PULSE 97; RESP 16; TEMP 36.7; O2SAT 96
[2019-08-28] MEDS: Normal Saline 1,000 ML 100 ML IV (19:20)
[2019-08-28 19:35] VITALS: BP 136/59; PULSE 76; RESP 16; TEMP 36.9; O2SAT 94
[2019-08-28 20:06] VITALS: BP 162/76; PULSE 74; RESP 18; TEMP 37; O2SAT 98
--- NOTE | 2019-08-28 21:06 | HPE_ITS ---
Date of service: 08/28/19 Time of Service: 21:06 Assessment and Plan Assessment and plan (1) Dizziness: Status: Acute Assessment and plan: Monitor heart rhythm as well as orthostatic blood pressures. Hydrate with IV fluids overnight. She may need adjustment in her medications for her migraine headaches as well as for her psychiatric medications. Will consult with neurology to assist with assessment.We will also consult with psychiatry to assess adjustment of her medications. (2) Ambulatory dysfunction: Status: Acute Assessment and plan: Consult with physical therapy to evaluate her gait and strength and balance. (3) Acute UTI: Status: Acute Assessment and plan: Continue IV Rocephin pending results of urinary culture (4) Acute kidney injury (nontraumatic): Status: Acute Assessment and plan: Hydrate with IV fluids overnight and recheck her BMP in the morning. (5) Diabetes mellitus: Status: Chronic Assessment and plan: We will monitor blood sugars before meals and at bedtime and cover with sliding scale insulin. Check glycohemoglobin A1c in the morning. Qualifiers: Diabetes mellitus type: type 2 Diabetes mellitus joint terminal attack controller insulin use: without joint terminal attack controller use Diabetes mellitus complication status: without complication Qualified Code(s): E11.9 - Type 2 diabetes mellitus without complications (6) Intracranial aneurysm: Status: Chronic Assessment and plan: No focal neurologic deficits and no headaches to suggest intracranial bleed. There is been no recent imaging of her aneurysm performed here at [facility]. Her last image performed at [facility] was from August 22, 2017. 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 And an unchanged left superior hypophyseal artery aneurysm. Not sure that these aneurysms would explain her dizziness. Therefore we will ask neurology to weigh in on this matter. Patient may need a follow-up MRI/MRA to assess stability. 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 Patient [place] [facility] in [place]. The patient has been experiencing frequent falls over the past month (5 x per patient) due to dizziness. Today she fell while getting into an RTC vehicle w/ her brother who lives with her at [facility]. Her evaluation in the ER revealed her to have a non-displaced fracture of her right elbow at the superior aspect of the medial condyle. Her labs revealed evidence for a UTI and mild HIPOLITO (creatinine of 1.40, up from baseline of 0.82 last December; BUN of 17 up from baseline of 12). She was given iv fluids, Rocephin 1 gm IVPB and her right elbow was placed in posterior splint and a sling. Dr. Helton, orthopedics was contacted by BERNADINE Logan from the ER and he reviewed the films and advised the splint and sling and to get a CT of the elbow but no CT was available tonight. The patient had no syncope with her falls and denies any headaches. No CT of her head was performed. She has been followed by neurosurgery at [facility] (Dr. Stubbs)for her brain aneurysms. She was observed in the ER to be ambulating w/out assistance and without ataxia but did lose her balance as she attempted to reach for the wall. Annette Logan spoke w/ the patient's neurologist, Dr. Polanco and reviewed the patient's symptoms and neuro exam and did not recommend imaging at this time. The patient feels that she is being overmedicated for her psychiatric condition and that this is the cause of her dizziness. Annette Logan did contact [facility] to evaluate the patient due to complaints of chronic depression and chronic SI w/out any specific plans. [facility] and did not feel she warranted psychiatric admission. The patient is admitted ovenight for observation d/t the frequent falls and her dizziness. P.T. and neurology and orthopedic consultati ons will be requested in the a.m. to assist w/ her treatment. Review of Systems All systems reviewed & are unremarkable except as noted in HPI and below [facility] Medical History (Updated 08/28/19 @ 22:32 by Usman Brewer) Auditory hallucinations (Acute) Back pain (Acute) Calcium kidney stone (Acute) Chronic constipation (Acute) COPD (chronic obstructive pulmonary disease) (Chronic) Depressive disorder (Acute) Diabetes mellitus (Chronic) Fatigue (Acute) Fracture of orbital floor, left side, sequela (Acute) GERD (gastroesophageal reflux disease) (Chronic) Glaucoma (Chronic) Headache (Acute) Hip pain, bilateral (Acute) Hyperlipidemia (Acute) Hypertension (Chronic) Insomnia (Acute) Intracranial aneurysm (Chronic) Knee pain, bilateral (Acute) Low back pain (Acute) Lumbar back pain (Acute) Migraine headache with aura (Acute) Migraine headache without aura (Acute) Osteoarthritis (Chronic) Overweight (Acute) Paranoid schizophrenia (Acute) Polyarthralgia (Acute) Tobacco use disorder (Acute) Umbilical hernia without mention of obstruction or gangrene (Acute) Urinary frequency (Acute) Vitamin D deficiency (Acute) Surgical History (Updated 08/28/19 @ 22:27 by Usman Brewer) History of bilateral tubal ligation (Acute) Status post coil embolization of cerebral aneurysm (Acute) Family History Father Colon cancer Renal cancer Sister Breast cancer Mother Abdominal aortic aneurysm Brother Psychiatric illness Social History Smoking/Tobacco Use Status: Current every day Tobacco Type: cigarettes Alcohol Intake: former Drug use: Current Sobriety Substance use type: does not use Do you feel safe at home: No Do you feel safe in your relationship?: Yes Meds Home Medications and Allergies Home Medications Medication Instructions Recorded Confirmed Type cholecalciferol (vitamin D3) 2,000 units PO DAILY 06/03/15 08/28/19 History ranitidine HCl 150 mg PO BID 06/03/15 08/28/19 History simvastatin 20 mg PO HS 06/03/15 08/28/19 History latanoprost 1 drp .QHS 12/17/18 08/28/19 History naproxen 375 mg PO BID 12/17/18 08/28/19 History clozapine 25 mg tablet 200 mg PO .QHS 01/14/19 07/14/19 History docusate sodium 100 mg capsule 100 mg PO HS PRN cap 01/14/19 08/28/19 History gabapentin 100 mg capsule 100 mg PO DIRECTED #60 cap 03/17/19 08/28/19 Rx acetylcysteine 600 mg capsule 1,200 mg PO BID cap 07/14/19 07/14/19 History aspirin 81 mg tablet 81 mg PO DAILY 07/14/19 08/28/19 History brimonidine 0.2 %-timolol 0.5 % 1 drp OP BID 07/14/19 07/14/19 History eye drops clonazepam 0.5 mg tablet 0.25 mg PO BID tab 07/14/19 08/28/19 History clozapine 100 mg tablet 100 - 200 mg PO DIRECTED PRN 07/14/19 08/28/19 Hist ory tab metformin 1,000 mg tablet 750 mg PO BID tab 07/14/19 08/28/19 History acetaminophen 1,000 mg PO BID PRN 08/28/19 08/28/19 History albuterol sulfate [ProAir HFA] 2 inh INHALATION Q4H PRN 08/28/19 08/28/19 History clotrimazole-betamethasone 1 applic TOPICAL BID PRN 08/28/19 08/28/19 History [Lotrisone] cyclobenzaprine 5 mg PO HS PRN 08/28/19 08/28/19 History magnesium hydroxide [Milk of 30 ml PO DAILY PRN 08/28/19 08/28/19 History Magnesia] nicotine [Nicoderm CQ] 2 mg TRANSDERMAL Q24H PRN 08/28/19 08/28/19 History nystatin 1 applic TOPICAL PRN PRN 08/28/19 08/28/19 History polyethylene glycol 3350 [Miralax] 17 g PO DAILY 08/28/19 08/28/19 History Allergies Allergy/AdvReac Type Severity Reaction Status Date / Time fluphenazine enanthate AdvReac Severe almost Verified 08/28/19 09:59 [From Prolixin] last time they gave it to me fluphenazine HCl AdvReac Severe almost Verified 08/28/19 09:59 [From Prolixin] last time they gave it to me haloperidol [From Haldol] AdvReac Mild doesn't Verified 08/28/19 09:59 agree with me haloperidol lactate AdvReac Mild doesn't Verified 08/28/19 09:59 [From Haldol] agree with me chlorpromazine HCl AdvReac Unknown per pt Verified 08/28/19 09:59 [From Thorazine] list from [facility] codeine AdvReac Unknown pt list Verified 08/28/19 09:59 from [facility] ibuprofen AdvReac Unknown per pt Verified 08/28/19 09:59 list from [facility] nicotine AdvReac Unknown per pt Verified 08/28/19 09:59 loist from [facility] paliperidone [From Invega] AdvReac Unknown per pt Verified 08/28/19 09:59 list from [facility] Penicillins AdvReac Unknown per pt Verified 08/28/19 09:59 list from [facility] Sulfa (Sulfonamide AdvReac Unknown per pt Verified 08/28/19 09:59 Antibiotics) list from [facility] Exam Narrative Exam Narrative: Middle-age female lying in bed in semi-prasad position with the right arm wrapped in an Ayush wrap and a posterior splint resting in a sling. HEENT is unremarkable. There is no nystagmus. Neck is supple nontender no JVD normal carotid pulses no bruits no thyromegaly. Lungs are clear to auscultation. Heart is regular rate and rhythm without murmur rub or gallop. Abdomen soft and nontender with normal active bowel sounds no bruits no palpable masses no organomegaly. Extremities no peripheral cyanosis or edema. Good capillary refill in the fingers of her right hand. Good sensation light touch. Unable to assess hand assembler bicycle strength or arm strength due to the right arm being in a splint and sling. Lower extremities with normal strength and range of motion. Neurologic exam is grossly intact no focal deficits. No facial asymmetry no dysarthric speech extraocular motion intact no nystagmus. No focal motor deficits no focal sensory deficits. Genitalia rectal exam deferred. Results Labs Result diagrams: 08/28/19 11:15 08/28/19 16:14 Labs: Laboratory Results - last 24 hr 08/28/19 08/28/19 08/28/19 11:15 11:15 11:15 WBC 7.83 RBC 3.83 L Hgb 11.1 L Hct 33.6 L MCV 87.7 MCH 29.0 MCHC 33.0 RDW 14.3 Plt Count 312 MPV 9.8 Immature Gran % 0.1 Neutrophils % 75.4 Lymphocytes % 17.5 Monocytes % 5.2 Eosinophils % 1.4 Basophils % 0.4 Absolute Neutrophils 5.90 Absolute Lymphocytes 1.37 Absolute Monocytes 0.41 Absolute Eosinophils 0.11 Absolute Basophils 0.03 Sodium 138 Potassium 5.2 H Chloride 104 Carbon Dioxide 23.4 Anion Gap 10.6 BUN 17 Creatinine 1.40 H Estimated GFR/1.73 m2 37.62 Glucose 208 H Calcium 9.7 Total Bilirubin 0.3 AST 13 L ALT 16 Alkaline Phosphatase 136 H Troponin I < 0.05 Total Protein 7.9 Albumin 3.8 Urine Color Urine Clarity Urine pH Ur Specific [place] Urine Protein Urine Ketones Urine Blood Urine Nitrite Urine Bilirubin Urine Urobilinogen Ur Leukocyte Esterase Urine RBC Urine WBC Ur Epithelial Cells Urine Crystals Urine Bacteria Urine Mucus Ur Culture Indicated? Urine Glucose 08/28/19 08/28/19 12:07 16:14 WBC RBC Hgb Hct MCV MCH MCHC RDW Plt Count MPV Immature Gran % Neutrophils % Lymphocytes % Monocytes % Eosinophils % Basophils % Absolute Neutrophils Absolute Lymphocytes Absolute Monocytes Absolute Eosinophils Absolute Basophils Sodium 134 L Potassium 4.3 Chloride 98 Carbon Dioxide 23.2 Anion Gap 12.8 H BUN 15 Creatinine 1.31 H Estimated GFR/1.73 m2 40.62 Glucose 272 H Calcium 9.4 Total Bilirubin 0.3 AST 14 L ALT 18 Alkaline Phosphatase 140 H Troponin I Total Protein 8.0 Albumin 3.8 Urine Color Yellow Urine Clarity Cloudy Urine pH 5.5 Ur Specific [place] 1.020 Urine Protein Negative Urine Ketones Negative Urine Blood Moderate H Urine Nitrite Negative Urine Bilirubin Negative Urine Urobilinogen 0.2 Ur Leukocyte Esterase Large H Urine RBC Not Applicable Urine WBC >50 H Ur Epithelial Cells Not Applicable Urine Crystals Not Applicable Urine Bacteria Many Urine Mucus Not Applicable Ur Culture Indicated? C&s done as ordered Urine Glucose Negative Last Vital Signs Temp 37.0 C 08/28/19 20:06 Pulse 74 08/28/19 20:06 Resp 18 08/28/19 20:06 BP 162/76 H 08/28/19 20:06 Pulse Ox 98 08/28/19 20:06
--- NOTE | 2019-08-29 | DI.CT_ITS ---
EXAM: CT UPPER EXTREMITY RT WO TECHNIQUE: Imaging Protocol: Axial computed tomography images with coronal and sagittal reformatted images were created and reviewed CONTRAST MATERIAL: None COMPARISON: XR ELBOW RT COMPLETE from 08/28/2019 FINDINGS: There is a nondisplaced fracture seen extending transversely through the condylar region of the wong bailee. There is no visible extension to the articular surface. No additional fractures are identified . A splint is in place. There is mild soft tissue swelling. IMPRESSION: Nondisplaced fracture of the distal humerus. No intra-articular extension. DATA REPOSITORY: All CT scans at this facility are submitted to the National Radiology Data Registry (NRDR) Dose Index Registry (DIR) with the [employer] (ACR). RADIATION OPTIMIZATION: All CT scans at this facility use at least one of these dose optimization te chniques: automated exposure control; mA and/or kV adjustment per patient size (includes targeted exa ms where dose is matched to clinical indication); or iterative reconstruction.
[2019-08-29 00:41] VITALS: BP 122/72; PULSE 82; RESP 16; TEMP 36; O2SAT 95
[2019-08-29] MEDS: Melatonin 3 MG TAB 9 MG PO ×2 (01:24→21:18)
[2019-08-29] MEDS: Nicotine 7 MG/24 HR PATCH 2 MG TD (01:25)
[2019-08-29] MEDS: Gabapentin 100 MG CAP PO ×2 (01:25→21:18)
[2019-08-29] MEDS: Latanoprost 0.005% 2.5 ML BTL OU ×2 (01:25→21:19)
[2019-08-29 05:11] VITALS: RESP 18; TEMP 36; O2SAT 94
[2019-08-29 07:03] VITALS: BP 149/83; PULSE 77; RESP 16; TEMP 36.7; O2SAT 96
[2019-08-29 07:26] LABS: Abs Immature Grans 0.01 k/cumm (0.0-0.09); Absolute Basophil Count 0.03 k/cumm (0.0-0.2); Absolute Eosinophil Count 0.09 k/cumm (0.0-0.7); Absolute Monocyte Count 0.55 k/cumm (0.11-0.7); Absolute Neutrophil Count 5.06 k/cumm (1.2-6.7); Basophils % 0.4; Eosinophils % 1.2; HCT 30.5 % (36.0-46.0); HGB 9.9 g/dL (12.0-15.5); Immature Grans % 0.1 %; Lymphocytes % 20.7; Mean Corp. HGB Concentration 32.5 g/dL (32.0-36.0); Mean Corpuscular Hemoglobin 28.4 pg (27.0-33.0); Mean Corpuscular Volume 87.6 fL (80-95); Mean Platelet Volume 10.1 fL (8.0-11.0); Monocytes % 7.6; Platelet Count 269 x1000/uL (130-400); RBC 3.48 m/cumm (4.00-5.20); RBC Distribution Width 14.4 % (11.7-14.6); White Blood Cell Count 7.24 k/cumm (4.4-10.8)
[2019-08-29 07:50] LABS: Anion Gap 9.4 mmol/L (3-11); BUN 10 mg/dL (7-18); CO2 25.6 mmol/L (21.0-32.0); CREATININE 1.01 mg/dL (0.55-1.02); Calcium 9.1 mg/dL (8.5-10.1); Chloride 104 mmol/L (98-107); Estimated GFR 54.84 (mL/min/1.73m2); Glucose 164 mg/dL (74-106); Potassium 4.5 mmol/L (3.5-5.1); Sodium 139 mmol/L (136-145)
[2019-08-29 08:09] LABS: Anisocytosis 2+; Diff Comment Diff Reviewed
[2019-08-29] MEDS: clonazePAM 0.5 MG TAB 0.25 MG PO ×2 (08:49→21:18)
[2019-08-29] MEDS: Aspirin 81 MG CHEW CH (08:49)
[2019-08-29] MEDS: Cholecalciferol (Vitamin D3) 1,000 UNIT TAB 2000 UNITS PO (08:49)
[2019-08-29] MEDS: Enoxaparin 40 MG/0.4 ML SYR SC (08:50)
[2019-08-29] MEDS: Insulin Aspart 300 UNITS/3 ML PEN SC ×2 (09:15→12:10)
--- NOTE | 2019-08-29 09:25 | PT.INIE ---
Date of service: 08/29/19 Time of Service: 09:25 PT Notes Visit Reasons: FREQUENT FALLS, GAIT INSTABILITY, UTI, HIPOLITO Physical Therapy Inpatient Initial Evaluation Date: 08/29/2019 Referring Doctor: Usman Brewer M.D. PT Orders: PT CONSULT: Fall safety assessment Precautions: Fall. Standard. Activity as tolerated. Sling on when OOB. Patient Profile/Admitting Diagnosis: Pt is a 64-year-old female, with a history of intracranial aneurysm, paranoid schizophrenia, and bipolar disorder, that presented that to the ER on 08/28/2019 for the feeling of being off balance and frequent falls (5 falls in 2 months). She was admitted to the hospital with diagnoses of dizziness, ambulatory dysfunction, UTI, acute kidney injury, and nondisplaced fracture of the superior aspect of the right medial epicondyle. PMHX: Medical History (Updated 08/28/19 @ 22:32 by Usman Brewer) Auditory hallucinations (Acute) Back pain (Acute) Calcium kidney stone (Acute) Chronic constipation (Acute) COPD (chronic obstructive pulmonary disease) (Chronic) Depressive disorder (Acute) Diabetes mellitus (Chronic) Fatigue (Acute) Fracture of orbital floor, left side, sequela (Acute) GERD (gastroesophageal reflux disease) (Chronic) Glaucoma (Chronic) Headache (Acute) Hip pain, bilateral (Acute) Hyperlipidemia (Acute) Hypertension (Chronic) Insomnia (Acute) Intracranial aneurysm (Chronic) Knee pain, bilateral (Acute) Low back pain (Acute) Lumbar back pain (Acute) Migraine headache with aura (Acute) Migraine headache without aura (Acute) Osteoarthritis (Chronic) Overweight (Acute) Paranoid schizophrenia (Acute) Polyarthralgia (Acute) Tobacco use disorder (Acute) Umbilical hernia without mention of obstruction or gangrene (Acute) Urinary frequency (Acute) Vitamin D deficiency (Acute) Surgical History (Updated 08/28/19 @ 22:27 by Usman Brewer) History of bilateral tubal ligation (Acute) Status post coil embolization of cerebral aneurysm (Acute) Social History/Home Situation: Pt is a resident at [facility]. Equipment Owned/DME: none Subjective: Throughout the treatment session the pt reports multiple falls and bone fractures throughout her life, including the left shoulder, left ankle and tibia, ribs. She complains of right hip pain with hip flexion. Notes left rib pain with resisted left arm movements and left shoulder pain when using the cane for ambulation. She continues to state that she does not want to go back to [facility] because they are mean to her there. Says that people have told her the voices in her head are demons/Lucifer. Objective: General Observation: Pt lying in bed with her head at the foot of the bed. Telemonitor detached from the pt, placed on pillow at the head of the bed. IV line in L UE. JIM bandage wrapped around R UE. Mental Status: Pt is able to follow simple commands and answer all questions. Pain: multiple pains as listed above. ROM: Right Upper Extremity: Shoulder Flexion NT due to pain. Shoulder abduction NT due to pain. Elbow flexion NT due to pain. Wrist flexion WFL. Opening and closing of hand WFL. Left Upper Extremity: Shoulder Flexion WFL. Shoulder abduction WFL. Elbow flexion WFL. Wrist flexion WFL. Opening and closing of hand WFL. Right Lower Extremity: Hip flexion WFL. Hip abduction WFL. Knee flexion WFL. Ankle dorsiflexion WFL. Ankle plantarflexion WFL. Left Lower Extremity: Hip flexion WFL. Hip abduction WFL. Knee flexion WFL. Ankle dorsiflexion WFL. Ankle plantarflexion WFL. Strength: Right Upper Extremity: Shoulder flexors NT due to pain. Shoulder abductors NT due to pain. Elbow flexors NT due to pain. Elbow extensors NT due to pain. 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 Left Upper Extremity: Shoulder flexors 3-/5. Shoulder abductors 3-/5. Elbow flexors 4-/5. Elbow extensors 3+/5. 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 Right Lower Extremity: Hip flexors 3+/5 (pain in anterior hip). Hip abductors 3+/5. Knee flexors 4-/5. Knee extensors 4/5. Ankle dorsiflexors 5/5. Ankle plantarflexors 5/5. Left Lower Extremity: Hip flexors 3+/5. Hip abductors 3+/5. Knee flexors 4-/5. Knee extensors 4/5. Ankle dorsiflexors 5/5. Ankle plantarflexors 5/5. Sensation: Intact as to pain and pressure on bilateral lower extremities. Bed Mobility/Transfers: Rolling SBA with HOB flat Supine to sit SBA with HOB flat Sit to supine SBA Sit to stand handheld assist Stand to sit handheld assist Bed to chair handheld assist Chair to bed handheld assist Gait: Pt was able to ambulate 25 feet + 25 feet + 100 feet, full weight bearing, with handheld assist provided by PT. Reciprocal, step through gait pattern with decreased step length and height. Attempted use of single point cane on the left, but complained of pain in her left shoulder. No complaints of dizziness. Nurse notified of pain complaints Balance: Static Sitting: Normal Dynamic Sitting: Normal Static Standing: Fair Dynamic Standing: Fair Special Tests: Mobility Limitations Standardized Measure [facility] AM-PAC 6 clicks Basic Mobility Inpatient Short Form: Raw Score: 22 CMS Score: 21% deficit Four-stage balance test: Pt was able to maintain narrow base of support for 10 seconds. Able to maintain semi-tandem leading with the right for 10 seconds, but unable to maintain stance leading with the left foot. Required seated rest breaks between standing positions due to fatigue. Informed Consent/Education: Patient instructed in purpose of PT consult and plan of care. Assessment: Pt is a 64-year-old female with a history of intracranial aneurysm, paranoid schizophrenia, and bipolar disorder, that presented that to the ER on 08/28/2019 for the feeling of being off balance and frequent falls (5 falls in 2 months). She was admitted to the hospital with diagnoses of dizziness, ambulatory dysfunction, UTI, acute kidney injury, and non-displaced fracture of the superior aspect of the right medial epicondyle. Pt presents with impairment level findings and functional limitations as listed below. She demonstrates increased fall risk due to decreased strength, impaired balance, impaired functional use of the right upper extremity, and history of multiple falls. She would benefit from the use of an assistive device, however, complained of pain in her left shoulder with the use of a single point cane. Pt would benefit from skilled physical therapy at this time. PT may benefit from an occupational therapy referral to assess her function with ADLs. Patient presents with clinical signs and symptoms consistent with current/admitting diagnoses that have resulted to mobility limitations, gait instability, and generalized weakness as demonstrated by the following impairment level findings: 1. Decreased strength to B LE and UE major muscle groups 2. Impaired standing balance 3. Impaired activity tolerance 4. Limitation of joint range of motion in right UE Impairments are contributing to the following functional limitations: 1. Dependent bed mobility skills 2. Increased dependence with transfers 3. Inability to safely ambulate without assistive device and physical assistance 4. Increase completion time for mobility ADL performance 5. Increased fall risk 6. Inability to negotiate steps alone safely Patient is assessed as a [id number] moderate complexity based on the following: History: Pt presents with impairment level findings and functional limitations as listed above. AM-PAC raw score of 22 with 21% deficit. Examination: Demonstrable impairment in strength, balance, and range of motion with underlying impairments and functional limitations as documented above Presentation: Evolving Decision Makin Goals: Goals X1 week 1. Supine-Sit independent 2. Sit-Supine independent 3. Sit-Stand independent 4. Stand-Sit independent 5. Bed-Chair independent 6. Chair-Bed independent 7. Independent gait on level surface with use of least restrictive device for at least 300 feet without report of pain nor dyspnea 8. Independent with home exercise program 9. Good static and dynamic standing balance/tolerance Plan of Care/Treatment Plan: 1-2x/day, 7 days/week x 1 week. Plan of care has been reviewed with the [employer] providing the service under Physical Therapy direction. Initiate Physical Therapy intervention for strengthening, bed mobility, transfers, gait, stairs, balance training, use of assistive device. DISCHARGE RECOMMENDATIONS: Once medically cleared the pt may return to her [facility]. She would benefit from home health physical therapy in order to progress mobility level, strength, and balance. TREATMENT CODE/TIME: 04285 x 25 minutes + 66820 x 10 minutes beginning at 9:25 A.M. Thank you very much for this referral. Angela Griffith, SPT Doctor of Physical Therapy Student [facility] Supervision provided by Rina Washington PT, DPT, CLT [facility] [place], [place]
[2019-08-29] MEDS: Polyethylene Glycol 3350 17 GM PACKET (10:29)
[2019-08-29 11:11] LABS: Hemoglobin A1C 8.2 % (3.8-5.6)
--- NOTE | 2019-08-29 11:12 | OCONE_ITS ---
Date of service: 08/29/19 Time of Service: 12:54 History of Present Illness History of Present Illness Chief Complaint: Right elbow pain Narrative: Chief Complaint: Right elbow pain HPI: 64-year-old female with significant psychiatric history describes changes to her medications and approximately 5 falls during the month of July some point possibly starting her right elbow swelling and pain symptoms. Is difficult to keep her focused on her elbow history. She frequently changes topics to her brain aneurysm surgery, her unhappiness with her living situation, and her unhappiness with her current medications. She expressed a strong desire to live somewhere else and states she would like to be in a retirement because she is getting old. prior injury: Unknown attempted treatments: None until emergency room visit yesterday when placed into a long-arm well-padded posterior splint immobilization numbness/tingling: Denies prior imaging: X-rays yesterday PMH: As per EMR and to list a few: schizophrenia, brain aneurysm coiling, active UTI diabetes: Yes per patient allergies: Numerous intolerances as listed in the EMR to antipsychotic medications and others. FH: non-contributory SH: hand dominance: Right occupation: Disabled smoke cigarettes: Yes current everyday smoker Consult Reason Right elbow fracture Assessment and Plan Assessment and plan (1) Supracondylar fracture of right humerus: Status: Acute Assessment and plan: 64-year-old female with likely subacute right supracondylar extra-articular nondisplaced distal humerus fracture from anyone of multiple fall sustained during the of July. Unfortunately, patient history and exam significantly limited by psychiatric conditions and mental status. Clinically, the patient is comfortable and does not examine like an acute fracture. Radiographically, the fracture is completely nondisplaced and possibly already healing. Would not recommend surgery at this time. Continue posterior long-arm splint immobilization. Nonweightbearing right upper extremity. Gentle elevation on pillow while seated or in bed. Sling to hold splint when standing or walking otherwise avoid playing around neck. Daily active and passive range of motion to all exposed digits and thumb to prevent stiffness as instructed with patient. Follow-up with in approximately 2 weeks for repeat right elbow x-rays and likely transition to long-arm casting versus maintain this time splint unless completely healed. Would consider operative intervention should the fracture displace or fail to heal, but this is a high risk location for ORIF and clearly high risk for perioperative and postoperative complication patient given medical and psychiatric comorbidities. Case discussed with hospitalist All questions were answered As best I can tell the patient agrees with and understands treatment plan Call me directly with any questions or concerns Qualifiers: Encounter type: initial encounter Fracture type: closed Qualified Code(s): S42.411A - Displaced simple supracondylar fracture without intercondylar fracture of right humerus, initial encounter for closed fracture Review of Systems Unobtainable due to mental condition (When asked the following is difficult to focus patient in order pH of alignment is of her answers) Constitutional Constitutional: Denies fever(s) and Reports frequent falls Eyes Eyes: Denies diplopia and Denies loss of vision ENT Ears, Nose, Mouth, and Throat: Denies dental pain and Denies other (cavities) Cardiovascular Cardiovascular: Denies chest pain with activity, Reports irregular heart rhythm and Denies dyspnea Respiratory Respiratory: Denies cough and Denies dyspnea Gastrointestinal Gastrointestinal: Denies nausea and Denies vomiting Musculoskeletal Musculoskeletal: Reports as per HPI Integumentary/Breasts Skin/Breast: Denies rash and Denies wounds Neurologic Neurologic: Reports as per HPI, Reports confusion, Reports frequent falls and Denies loss of vision Psychiatric Psychiatric: Reports confusion and Reports difficulty concentrating Hematologic/Lymphatic Hematologic/Lymphatic: Denies easy bleeding and Denies easy bruising Allergic/Immunologic Allergic/Immunologic: Reports as per HPI [facility] Medical History (Updated 08/29/19 @ 13:09 by Jacques Pérez MD) Auditory hallucinations (Acute) Back pain (Acute) Calcium kidney stone (Acute) Chronic constipation (Acute) COPD (chronic obstructive pulmonary disease) (Chronic) Depressive disorder (Acute) Diabetes mellitus (Chronic) Fatigue (Acute) Fracture of orbital floor, left side, sequela (Acute) GERD (gastroesophageal reflux disease) (Chronic) Glaucoma (Chronic) Headache (Acute) Hip pain, bilateral (Acute) Hyperlipidemia (Acute) Hypertension (Chronic) Insomnia (Acute) Intracranial aneurysm (Chronic) Knee pain, bilateral (Acute) Low back pain (Acute) Lumbar back pain (Acute) Migraine headache with aura (Acute) Migraine headache without aura (Acute) Osteoarthritis (Chronic) Overweight (Acute) Paranoid schizophrenia (Acute) Polyarthralgia (Acute) Tobacco use disorder (Acute) Umbilical hernia without mention of obstruction or gangrene (Acute) Urinary frequency (Acute) Vitamin D deficiency (Acute) Surgical History (Updated 08/28/19 @ 22:27 by Usman Brewer) History of bilateral tubal ligation (Acute) Status post coil embolization of cerebral aneurysm (Acute) Family History Father Colon cancer Renal cancer Sister Breast cancer Mother Abdominal aortic aneurysm Brother Psychiatric illness Social History Smoking/Tobacco Use Status: Current every day Tobacco Type: cigarettes Alcohol Intake: former Drug use: Current Sobriety Substance use type: does not use Do you feel safe at home: No Do you feel safe in your relationship?: Yes Exam Const General: cooperative, comfortable and no acute distress Orientation: alert and awake Limitations: no language barrier HENMT Head: normocephalic and atraumatic Neck Neck: not normal to visual inspection (Significant thoracic kyphosis and loss of cervical lordosis) and limited ROM (Moderately limited range of motion) Resp Effort & Inspection: normal respiratory effort, able to speak in complete sentences, no audible wheezes and no grunting Cardio Other: Unable to palpate right upper extremity pulses due to long-arm splint in place splint, but minimal distal digit or thumb edema. Brisk cap refill General: deferred Skin General skin exam: no rashes or lesions noted Other: No skin breakdown proximal or distal to well-padded long-arm splint Neuro General: alert and awake Cognition: abnormal cognition (Unclear. Perseverating on non-orthopedic issues during encounter.) Speech: speech normal Extrem Other: Right upper extremity: No tenderness to palpation or deformity proximal or distal to posterior long-arm splint. Splint clean dry intact with grossly appears well padded with the arm positioned approximately 90 degrees resting flexion. Distally neurovascular intact with full sensation and no pain with passive stretch with exposed fingers. Demonstrates actively intact all hand flexor extensors. Nontender about the shoulder unable to abduct or flex and extend. Psych Appearance: grossly normal Mental Status: mental status grossly abnormal Speech and Movement: speech and movement abnormal Affect: No normal affect Attitude: cooperative Thought Process: abnormal and perseverating Results Last Vital Signs Temp 98.1 F 08/29/19 07:03 Pulse 77 08/29/19 07:03 Resp 16 08/29/19 07:03 BP 149/83 H 08/29/19 07:03 Pulse Ox 96 08/29/19 07:03 Labs Result diagrams: 08/29/19 06:55 08/29/19 06:55 Labs: Laboratory Results - last 24 hr 08/28/19 08/28/19 08/28/19 11:15 11:15 11:15 WBC 7.83 RBC 3.83 L Hgb 11.1 L Hct 33.6 L MCV 87.7 MCH 29.0 MCHC 33.0 RDW 14.3 Plt Count 312 MPV 9.8 Immature Gran % 0.1 Neutrophils % 75.4 Lymphocytes % 17.5 Monocytes % 5.2 Eosinophils % 1.4 Basophils % 0.4 Absolute Neutrophils 5.90 Absolute Lymphocytes 1.37 Absolute Monocytes 0.41 Absolute Eosinophils 0.11 Absolute Basophils 0.03 Differential Comment RBC Morphology Anisocytosis Sodium 138 Potassium 5.2 H Chloride 104 Carbon Dioxide 23.4 Anion Gap 10.6 BUN 17 Creatinine 1.40 H Estimated GFR/1.73 m2 37.62 Glucose 208 H Hemoglobin A1c Calcium 9.7 Total Bilirubin 0.3 AST 13 L ALT 16 Alkaline Phosphatase 136 H Troponin I < 0.05 Total Protein 7.9 Albumin 3.8 TSH Urine Color Urine Clarity Urine pH Ur Specific [place] Urine Protein Urine Ketones Urine Blood Urine Nitrite Urine Bilirubin Urine Urobilinogen Ur Leukocyte Esterase Urine RBC Urine WBC Ur Epithelial Cells Urine Crystals Urine Bacteria Urine Mucus Ur Culture Indicated? Urine Glucose 08/28/19 08/28/19 08/29/19 12:07 16:14 06:55 WBC RBC Hgb Hct MCV MCH MCHC RDW Plt Count MPV Immature Gran % Neutrophils % Lymphocytes % Monocytes % Eosinophils % Basophils % Absolute Neutrophils Absolute Lymphocytes Absolute Monocytes Absolute Eosinophils Absolute Basophils Differential Comment RBC Morphology Anisocytosis Sodium 134 L 139 Potassium 4.3 4.5 Chloride 98 104 Carbon Dioxide 23.2 25.6 Anion Gap 12.8 H 9.4 BUN 15 10 Creatinine 1.31 H 1.01 Estimated GFR/1.73 m2 40.62 54.84 Glucose 272 H 164 H D Hemoglobin A1c Calcium 9.4 9.1 Total Bilirubin 0.3 AST 14 L ALT 18 Alkaline Phosphatase 140 H Troponin I Total Protein 8.0 Albumin 3.8 TSH 3.60 Urine Color Yellow Urine Clarity Cloudy Urine pH 5.5 Ur Specific [place] 1.020 Urine Protein Negative Urine Ketones Negative Urine Blood Moderate H Urine Nitrite Negative Urine Bilirubin Negative Urine Urobilinogen 0.2 Ur Leukocyte Esterase Large H Urine RBC Not Applicable Urine WBC >50 H Ur Epithelial Cells Not Applicable Urine Crystals Not Applicable Urine Bacteria Many Urine Mucus Not Applicable Ur Culture Indicated? C&s done as ordered Urine Glucose Negative 08/29/19 08/29/19 06:55 06:55 WBC 7.24 RBC 3.48 L Hgb 9.9 L Hct 30.5 L MCV 87.6 MCH 28.4 MCHC 32.5 RDW 14.4 Plt Count 269 MPV 10.1 Immature Gran % 0.1 Neutrophils % 70.0 Lymphocytes % 20.7 Monocytes % 7.6 Eosinophils % 1.2 Basophils % 0.4 Absolute Neutrophils 5.06 Absolute Lymphocytes 1.50 Absolute Monocytes 0.55 Absolute Eosinophils 0.09 Absolute Basophils 0.03 Differential Comment Diff reviewed RBC Morphology See below Anisocytosis 2+ Sodium Potassium Chloride Carbon Dioxide Anion Gap BUN Creatinine Estimated GFR/1.73 m2 Glucose Hemoglobin A1c 8.2 H Calcium Total Bilirubin AST ALT Alkaline Phosphatase Troponin I Total Protein Albumin TSH Urine Color Urine Clarity Urine pH Ur Specific [place] Urine Protein Urine Ketones Urine Blood Urine Nitrite Urine Bilirubin Urine Urobilinogen Ur Leukocyte Esterase Urine RBC Urine WBC Ur Epithelial Cells Urine Crystals Urine Bacteria Urine Mucus Ur Culture Indicated? Urine Glucose Imaging Imaging Studies: Right elbow x-rays and report independently interpreted: Likely nondisplaced supracondylar distal humerus fracture with possible healing laterally fracture line still visible medially CT scan right distal humerus and elbow ordered and independently interpreted as well as report reviewed: Confirms nondisplaced extra-articular supracondylar distal humerus fracture with possible early healing but fracture line still visible medially and laterally. No displacement or angulation.
--- NOTE | 2019-08-29 14:34 | PT.INTREAT ---
Date of service: 08/29/19 Time of Service: 14:34 PT Notes Visit Reasons: FREQUENT FALLS, GAIT INSTABILITY, UTI, HIPOLITO 08/29/2019 SUBJECTIVE: Nya stating that her bones hurt all over. She notes she has had a rough childhood. As of recent she has been falling a lot. OBJECTIVE: Pt supine in bed. Agreeable to PT treatment. TRANSFERS Supine to sit: S Sit to supine: S Sit to stand: SBA Stand to sit: SBA GAIT Device: No device Weight bearing: full Assist: SBA Distance: 150' THEREX: Pt performs SLR x 5 each and then notes she has pain everywhere. ASSESSMENT: Mobilizes well with minimal support. Pt may benefit from some balance re-training activities to help decrease her fall risk. She does not want to utilize an assistive device in the left UE due to pain in her shoulder. PLAN: Continue current POC. Treatment time: 15 minutes [id number] Alaina Friedman, [employer] TECHNICIAN
--- NOTE | 2019-08-29 15:12 | W.NUTCONSULT ---
Date of service: 08/29/19 Time of Service: 15:12 Nutritional Consult ASSESSMENT: 64 year old female admitted with fracture of elbow, UTI and dizziness. PMH: DM and multiple mental health concerns. Following Regular Meal Plan with 75-100% meal completion per nursing. Met with Nya today and she is content with meal service at this time. BMI wnl. Not considered at nutritional risk. recommend DM consult in view of A1C of 8.2%. MONITORING AND EVALUATION: po intake, labs, weights daily Time Spent in Nutritional Counseling and Treatment: 15 min spent face to face
--- NOTE | 2019-08-29 15:41 | INITIAL_ITS ---
Care Management Initial Assess REASON FOR HOSPITALIZATION:: Frequent falls, Gait Instability, UTI, HIPOLITO PAST MEDICAL HISTORY/PAST SURGICAL HISTORY:: Auditory hallucinations, back pain, calcium kidney stone, chronic constipation, COPD, depressive disorder, DM, Fatigue, fracture of orbital floor, left side, sequela, GERD, glaucoma, headache, hip pain bilateral, low back pain, lumbar back pain, migraine headache with aura, osteoarthritis, overweight, paranoid schizophrenia, polyarthralgia, tobacco use disorder, umbilical hernia without mention of obstruction or gangrene, urinary frequency, vitamin D deficiency, bilat tubal ligation, coil embolization of cerebral aneurysm PREVIOUS FUNCTIONAL STATUS/SOCIAL/FAMILY SUPPORTS:: Nya is a [employer]ISTANT client of [facility] and currently resides at [place], her brother resides there as well. She has baseline fears and consistent concerns about her residence that [employer] workers Vicente and Dary white are baseline reports but Nya is always agreeable to returning when [facility] arrives to transport her home. CURRENT FUNCTIONAL STATUS:: Nya is lying in bed, she shares multiple concerns about her physical health and reviews past traumas and stressors. She reports being thankful for her brother who is her main support person. She also has a sister, Daija who resides in [facility]. Has patient been provided with information about the portal?: No Did the patient sign up for the portal?: No CODE STATUS:: Full Code INSURANCE COVERAGE / FINANCIAL ISSUES:: Medicare. Medicaid CURRENT HOME/COMMUNITY SERVICES/EQUIPMENT:: [place] assisted living, [employer]IST[employer] program through [facility]. PRIMARY CARE PHYSICIAN:: Anmol Garcia POTENTIAL DISCHARGE NEEDS:: Coordinated return to [place] including transportation. PATIENT/FAMILY EDUCATION NEEDS:: Review of discharge instructions, discuss [employer] Me Three. ANTICIPATED BARRIERS TO DISCHARGE:: None identified. TRANSPORTATION:: Via private vehicle with [facility] of [place]. PLAN:: Nya will return to [place] when ready per MD. She will follow up with her PCP and plan of care as prescribed. She will transport via private vehicle with [facility] from [place].
--- NOTE | 2019-08-29 16:09 | W.PM.PROGNOT ---
Date of Service Date of service: 08/29/19 Time of Service: 16:10 Assessment and Plan Assessment and plan (1) Intracranial aneurysm: Status: Chronic Assessment and plan: No focal neurologic deficits and no headaches to suggest intracranial bleed. There is been no recent imaging of her aneurysm performed here at [facility]. Her last image performed at [facility] was from August 22, 2017. 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 ED provider discussed with Dr. Cherry Velazquez of neurology who reviewed patient's medical chart. from the record: Patient has a coil in place from her surgical repair in 2008 of her intracranial aneurysm. Patient does have a known intracranial aneurysm currently which has been followed over the last decade and has remained stable. After discussion of case neurology feels that given her benign neurologic exam at this time, lack of headache aneurysm is unlikely bleeding or the source of her dizziness and do not feel she requires immediate imaging at this time. She has had no neurologic deficits or decline, she is thought to be at her baseline. continues with dizziness with position changes but improves with rest prior to standing. (2) Supracondylar fracture of right humerus: Status: Acute Assessment and plan: orthopedics following and does not recommend surgery at this time. pain has been managed Continue posterior long-arm splint immobilization. Nonweightbearing right upper extremity. Gentle elevation on pillow while seated or in bed. Sling to hold splint when standing or walking otherwise avoid playing around neck. Daily active and passive range of motion to all exposed digits and thumb to prevent stiffness as instructed with patient. Follow-up with in approximately 2 weeks for repeat right elbow x-rays and likely transition to long-arm casting versus maintain this time splint unless completely healed. Qualifiers: Encounter type: initial encounter Fracture type: closed Qualified Code(s): S42.411A - Displaced simple supracondylar fracture without intercondylar fracture of right humerus, initial encounter for closed fracture (3) Dizziness: Status: Acute Assessment and plan: has been in normal sinus rhythm overnight with no dysrhythmias. blood pressures stable. She may need adjustment in her medications for her migraine headaches as well as for her psychiatric medications. Will consult with neurology to assist with assessment. We will also consult with psychiatry to assess adjustment of her medications. did not receive her HS and am dose of clozapine d/t lack availability. (4) Acute UTI: Status: Acute Assessment and plan: awaiting urinary cultures, growing GNR, will continue ceftriaxone day 2 while awaiting sensitivities (5) Diabetes mellitus: Status: Chronic Assessment and plan: hemoglobin A1C 8.2, blood sugars in the low 200's, continue diabetic diet, metformin and sliding scale coverage as needed. Qualifiers: Diabetes mellitus complication status: without complication Diabetes mellitus half-way insulin use: without half-way use Diabetes mellitus type: type 2 Qualified Code(s): E11.9 - Type 2 diabetes mellitus without complications (6) Acute kidney injury (nontraumatic): Status: Acute Assessment and plan: improved overnight. creatinine back to baseline. (7) Ambulatory dysfunction: Status: Acute Assessment and plan: improved slightly today, working with physical therapy. today she mobilized well with minimal support. They feel she may benefit from some balance re-training activities to help decrease her fall risk. She is non-weight bearing to left UE due to elbow fracture. continue PT. fall precautions. (8) DVT prophylaxis: Status: Acute Assessment and plan: continue enoxaparin daily. (9) Discharge planning issues: Status: Acute Assessment and plan: will discharge back to her current residence, she continues to say she won't but this is baseline for her and they will pick her up when ready for discharge. case management following. should continue PT/OT after discharge. Subjective Subjective Interval history since last seen: ongoing dizziness. worse with position change, improves after sitting for a couple of minutes, gait has been steady and she is thought to be at her baseline. pain in right arm is managed. she is eating and drinking well. Exam Const General: cooperative, healthy appearing, comfortable, no acute distress, disheveled, frail appearing and ill appearing chronically Nutritional Appearance: average body habitus Orientation: alert and awake Limitations: other limitations (mental health, serseverates on not going back. ) HENMT Head: normal to inspection, normocephalic and atraumatic Mouth: oral mucosae normal Chest Chest: normal inspection of the chest Resp Effort & Inspection: normal respiratory effort Auscultation: clear to auscultation bilaterally Cardio Rate: regular rate Rhythm: regular rhythm GI Inspection: normal to inspection Palpation: soft Skin General skin exam: no rashes or lesions noted Neuro General: alert, awake and oriented x3 Extrem Right upper extremity: abnormal to inspection (splint intact, no edema to hand, positive pulses. ) Psych Appearance: disheveled Mood: anxious mood Affect: anxious affect, indifferent and blunted Attitude: cooperative Thought Process: perseverating Thought Content: obsessions Insight: poor Judgment: poor Objective Objective Clinical Data: Abnormal lab results 08/28/19 08/29/19 08/29/19 Range/Units 16:14 06:55 06:55 RBC 3.48 L (4.00-5.20) m/cumm Hgb 9.9 L (12.0-15.5) g/dL Hct 30.5 L (36.0-46.0) % Sodium 134 L (136-145) mmol/L Anion Gap 12.8 H (3-11) mmol/L Creatinine 1.31 H (0.55-1.02) mg/dL Glucose 272 H 164 H D (74-106) mg/dL Hemoglobin A1c (3.8-5.6) % AST 14 L (15-37) U/L Alkaline Phosphatase 140 H (46-116) U/L 08/29/19 Range/Units 06:55 RBC (4.00-5.20) m/cumm Hgb (12.0-15.5) g/dL Hct (36.0-46.0) % Sodium (136-145) mmol/L Anion Gap (3-11) mmol/L Creatinine (0.55-1.02) mg/dL Glucose (74-106) mg/dL Hemoglobin A1c 8.2 H (3.8-5.6) % AST (15-37) U/L Alkaline Phosphatase (46-116) U/L Vital Signs Temperature 36.7 C 08/29/19 07:03 Temperature Source Temporal Artery Scan 08/29/19 07:03 Pulse 77 08/29/19 07:03 Pulse Rhythm Regular 08/29/19 15:03 Pulse Strength Normal 08/28/19 14:25 Respiratory Rate 16 08/29/19 07:03 Respiratory Effort Non-Labored 08/29/19 15:03 Respiratory Depth Normal 08/29/19 15:03 Respiratory Pattern Normal 08/29/19 15:03 Blood Pressure 149/83 H 08/29/19 07:03 Blood Pressure Mean 81 08/28/19 14:25 Blood Pressure Position Supine 08/28/19 14:25 Pulse Oximetry 96 08/29/19 07:03 Oxygen Delivery Method Room Air 08/29/19 07:03 Oxygen Flow Rate 0 08/29/19 07:03 Pain Level 9 08/28/19 20:06 Intake & Output 08/28/19 08/29/19 08/29/19 23:59 11:59 23:59 Intake Total 1560 / 1800 240 / 1800 Output Total 700 / 700 850 / 1050 200 / 1050 Balance -700 / -700 710 / 750 40 / 750 Weight 65 kg 64.5 kg Intake: IV 1000 / 1000 Oral 560 / 800 240 / 800 Output: Urine 700 / 700 850 / 1050 200 / 1050 Other: Urine Color Yellow Pale Pale Yellow Yellow Urine Appearance Clear Clear Clear Urine Odor Normal Voiding Methods Bedside Commode Bedside Commode Bedside Commode Laboratory Results WBC 7.24 k/cumm (4.4-10.8) 08/29/19 06:55 RBC 3.48 m/cumm (4.00-5.20) L 08/29/19 06:55 Hgb 9.9 g/dL (12.0-15.5) L 08/29/19 06:55 Hct 30.5 % (36.0-46.0) L 08/29/19 06:55 MCV 87.6 fL (80-95) 08/29/19 06:55 MCH 28.4 pg (27.0-33.0) 08/29/19 06:55 MCHC 32.5 g/dL (32.0-36.0) 08/29/19 06:55 RDW 14.4 % (11.7-14.6) 08/29/19 06:55 Plt Count 269 x1000/uL (130-400) 08/29/19 06:55 MPV 10.1 fL (8.0-11.0) 08/29/19 06:55 Immature Gran % 0.1 % 08/29/19 06:55 Neutrophils % 70.0 08/29/19 06:55 Lymphocytes % 20.7 08/29/19 06:55 Monocytes % 7.6 08/29/19 06:55 Eosinophils % 1.2 08/29/19 06:55 Basophils % 0.4 08/29/19 06:55 Absolute Neutrophils 5.06 k/cumm (1.2-6.7) 08/29/19 06:55 Absolute Lymphocytes 1.50 k/cumm (1.2-3.4) 08/29/19 06:55 Absolute Monocytes 0.55 k/cumm (0.11-0.7) 08/29/19 06:55 Absolute Eosinophils 0.09 k/cumm (0.0-0.7) 08/29/19 06:55 Absolute Basophils 0.03 k/cumm (0.0-0.2) 08/29/19 06:55 Differential Comment Diff reviewed 08/29/19 06:55 RBC Morphology See below 08/29/19 06:55 Anisocytosis 2+ 08/29/19 06:55 Sodium 139 mmol/L (136-145) 08/29/19 06:55 Potassium 4.5 mmol/L (3.5-5.1) 08/29/19 06:55 Chloride 104 mmol/L (98-107) 08/29/19 06:55 Carbon Dioxide 25.6 mmol/L (21.0-32.0) 08/29/19 06:55 Anion Gap 9.4 mmol/L (3-11) 08/29/19 06:55 BUN 10 mg/dL (7-18) 08/29/19 06:55 Creatinine 1.01 mg/dL (0.55-1.02) 08/29/19 06:55 Estimated GFR/1.73 m2 54.84 (mL/min/1.73m2) 08/29/19 06:55 Glucose 164 mg/dL (74-106) H D 08/29/19 06:55 Hemoglobin A1c 8.2 % (3.8-5.6) H 08/29/19 06:55 Calcium 9.1 mg/dL (8.5-10.1) 08/29/19 06:55 Total Bilirubin 0.3 mg/dL (0.2-1.0) 08/28/19 16:14 AST 14 U/L (15-37) L 08/28/19 16:14 ALT 18 U/L (14-59) 08/28/19 16:14 Alkaline Phosphatase 140 U/L (46-116) H 08/28/19 16:14 Troponin I < 0.05 ng/Ml (<0.06) 08/28/19 11:15 Total Protein 8.0 g/dL (6.4-8.2) 08/28/19 16:14 Albumin 3.8 g/dL (3.4-5.0) 08/28/19 16:14 TSH 3.60 uIU/mL (0.36-3.74) 08/29/19 06:55 Urine Color Yellow (Yellow) 08/28/19 12:07 Urine Clarity Cloudy (Clear) 08/28/19 12:07 Urine pH 5.5 (5-8) 08/28/19 12:07 Ur Specific [place] 1.020 (1.005-1.025) 08/28/19 12:07 Urine Protein Negative mg/dL (Negative) 08/28/19 12:07 Urine Ketones Negative mg/dL (Negative) 08/28/19 12:07 Urine Blood Moderate (Negative) H 08/28/19 12:07 Urine Nitrite Negative (Negative) 08/28/19 12:07 Urine Bilirubin Negative (Negative) 08/28/19 12:07 Urine Urobilinogen 0.2 EU/dL (Up TO 0.2) 08/28/19 12:07 Ur Leukocyte Esterase Large (Negative) H 08/28/19 12:07 Urine RBC Not Applicable 08/28/19 12:07 Urine WBC >50 HPF (0-5) H 08/28/19 12:07 Ur Epithelial Cells Not Applicable 08/28/19 12:07 Urine Crystals Not Applicable 08/28/19 12:07 Urine Bacteria Many HPF (Negative) 08/28/19 12:07 Urine Mucus Not Applicable 08/28/19 12:07 Ur Culture Indicated? C&s done as ordered 08/28/19 12:07 Urine Glucose Negative mg/dL (Negative) 08/28/19 12:07
[2019-08-29 16:29] VITALS: BP 147/74; PULSE 71; RESP 20; TEMP 36.6; O2SAT 100
--- NOTE | 2019-08-29 17:18 | CHAPLAIN ---
Dietary staff let me know that Nya was interested in a city plant supervisor visit. Nya was resting in bed. She has a depressed sense about her. She shared some family history, telling me about having her first child adopted, and her sister adopting her second child, , and moving to [place]. Her sister has told Nya that Isabelle has . Nya said she is not sure where Isabelle's children are. Nya said she was raised [employer] and she is concerned about some things she has done in her life that are considered a sin by the [employer]ism. She also said that she knows humans are not perfect, so we were able to talk about humans being made in God's image, and God offering love regardless of if we are perfect or not. Nya also said she does not want to return to [facility], where she currently lives. I told her I wasn't involved in those kinds of decisions and let her Machine Silver Stripper, Stephanie Chavarria, know what of Nya's concerns. Nya's brother Jonnie live at [facility] as well. I asked Nya what parts of her day are at least pleasant, and she said I haven't been happy for years. She seemed to appreciate the prayer shawl I gave her.
[2019-08-29] MEDS: cefTRIAXone 1 GM/50 ML BAG IVPB (17:27)
[2019-08-29] MEDS: Acetaminophen 500 MG TAB 1000 MG PO (18:42)
[2019-08-29] MEDS: Simvastatin 20 MG TAB PO (21:25)
[2019-08-30 03:15] VITALS: BP 108/70; PULSE 94; RESP 17; TEMP 37.1; O2SAT 95
[2019-08-30] MEDS: clonazePAM 0.5 MG TAB 0.25 MG PO (08:27)
[2019-08-30] MEDS: Aspirin 81 MG CHEW CH (08:27)
[2019-08-30] MEDS: Cholecalciferol (Vitamin D3) 1,000 UNIT TAB 2000 UNITS PO (08:27)
[2019-08-30] MEDS: Enoxaparin 40 MG/0.4 ML SYR SC (08:29)
[2019-08-30] MEDS: Insulin Aspart 300 UNITS/3 ML PEN SC (08:45)
--- NOTE | 2019-08-30 09:37 | DSE_ITS ---
DS: Diagnosis Discharge Diagnosis (1) Supracondylar fracture of right humerus: Start date: 08/30/19 Start time: 09:38 Status: Acute Asessment and Plan: continue PT/OT, follow up with ortho in 2 weeks, continue to keep in sling when up and ambulating. Tylenol for pain. (2) Intracranial aneurysm: Start date: 08/30/19 Start time: 09:37 Status: Chronic Asessment and Plan: follow up as needed. (3) Dizziness: Start date: 08/30/19 Start time: 09:41 Status: Acute Asessment and Plan: Waxes and wanes. On teley SR. Does not appear to affect gait. Likely from over medication of psychiatric meds. Will need to be weaned to most effective lowest dose. Recommend psychiatry to do this. (4) Acute UTI: Start date: 08/30/19 Start time: 09:41 Status: Acute Asessment and Plan: growing k. pneumonia sensitive to levaquin will Transition to PO levaquin (5) Diabetes mellitus: Start date: 08/30/19 Start time: 09:42 Status: Chronic Asessment and Plan: Continue to check fingersticks at home. Continue home medication regimen. (6) Acute kidney injury (nontraumatic): Start date: 08/30/19 Start time: 09:42 Status: Resolved Asessment and Plan: Resolved. (7) Ambulatory dysfunction: Start date: 08/30/19 Start time: 09:43 Status: Acute Asessment and Plan: Outpatient PT/OT, retrain balance for activities. Resume outpatient PT/OT Discharge Plan Disposition Patient Disposition: OTHER Condition: Stable Discharge Details Chief Complaint: PsychEval Clinical Impression: Fracture of elbow, Depression, Acute UTI, Dizziness Reason For Visit: FREQUENT FALLS, GAIT INSTABILITY, UTI, HIPOLITO Admit Date/Time: 08/28/19 18:16 Admit Provider: Usman Brewer Attending Provider: Usman Brewer Primary Care Provider: Anmol Garcia ED Provider: Shae Stout Hospital Course Hospital Course: 64 yo. female with extensive psychiatric history presents to [facility] ED for symptoms of pain after falling while trying to get into RTC vehicle with her brother. She fell while getting into an RTC vehicle w/ her brother who lives with her at [place]. Her evaluation in the ER revealed her to have a non- displaced fracture of her right elbow at the superior aspect of the medial condyle. She was also found to have a UTI, HIPOLITO and glucose of 208. She was admitted to [facility] m/s for further management. Over the course of her hospital stay she received IVF, PT/OT, pain management. Dr. rea evaluated her arm, she will need follow up in 2 weeks with him. Neurology was consulted, and did not feel imaging was necessary that her dizziness was a symptom of her psychiatric medications. Recommend she be titrated down to most effective lowest dose which might resolve the dizziness. It does wax and wane. She is able to ambulate without dizziness. Orthostatics negative. She was found to have a UTI growing kleb. pneumonia, treated with rocephine, pansensitivity will transition to oral levaquin. Pain appears controlled. HIPOLITO resolved after IVF. She denies CP, SOB, N/V/D. She seems to be at baseline. She is being discharged back to [facility]. Home Meds and New Rx's Prescriptions: New docusate sodium [Colace] 100 mg Capsule 100 mg PO TID PRN PRNQty: 20 RF: 0 levofloxacin [Levaquin] 750 mg tablet 750 mg PO Q24H Qty: 10 RF: 0 Continued gabapentin 100 mg capsule 100 mg PO DIRECTED Qty: 60 RF: 5 aspirin 81 mg tablet 81 mg PO DAILY RF: 0 Combigan 0.2-0.5 % drops 1 drp OP BID RF: 0 acetylcysteine [NAC] 600 mg capsule 1,200 mg PO BID RF: 0 docusate sodium [Colace] 100 mg capsule 100 mg PO HS RF: 0 clonazepam 0.5 mg tablet 0.25 mg PO BID RF: 0 cholecalciferol (vitamin D3) 1,000 UNITS tablet 2,000 units PO DAILY RF: 0 simvastatin 20 MG tablet 20 mg PO HS RF: 0 ranitidine HCl 150 MG tablet 150 mg PO BID RF: 0 clozapine 100 mg tablet See Rx Instructions .ROUTE .COMPLEX RF: 0 latanoprost 0.005 % Drops 1 drp .QHS RF: 0 naproxen 375 mg Tablet 375 mg PO BID PRNRF: 0 acetaminophen 500 mg Tablet 1,000 mg PO BID PRNRF: 0 nicotine [Nicoderm CQ] 7 mg/24 hr Patch 24 Hour 2 mg transdermal Q24H RF: 0 nystatin 100,000 unit/gram Powder 1 applic TOPICAL PRN PRNRF: 0 albuterol sulfate [ProAir HFA] 90 mcg/actuation Hfa Aerosol Inhaler 2 inh INHALATION Q4H PRNRF: 0 magnesium hydroxide [Milk of Magnesia] 400 mg/5 mL Suspension 30 ml PO DAILY PRNRF: 0 polyethylene glycol 3350 [Miralax] 17 gram/dose Powder 17 g PO DAILY RF: 0 cyclobenzaprine 5 mg Tablet 5 mg PO HS PRNRF: 0 clotrimazole-betamethasone [Lotrisone] 1-0.05 % Cream 1 applic TOPICAL BID PRNRF: 0 metformin 750 mg Tablet Extended Release 24 Hr 750 mg PO BID RF: 0 Discontinued clindamycin HCl 300 mg Capsule 300 mg PO TID RF: 0 Discharge Instructions Instructions: Arm Fracture in Adults (DC), Urinary Tract Infection in Women (DC), Diabetes Mellitus Type 2 in Adults (DC), Dizziness (GEN) Additional Instructions: Follow up in [address] Rea Take 1000 mg tylenol and 600 mg ibuprofen for pain Monitor fingersticks. Take levaquin for 10 days for UTI. Stand Alone Forms: Nursing Discharge Form Activity:: Activity as Tolerated Equipment/Supplies:: No Equipment Needed Diet:: Carb Counting Discharge Orders Discharge Orders: Discharge Order (Routine); Ordered 08/30/19 Ordered By: Cate Mcfarlane DS: Summary Status at Discharge Functional status at discharge: independent ambulation Overall status at discharge: patient is progressing back to baseline Mental Status: mental status grossly normal and other Speech and Movement: speech and movement normal Mood: other Affect: sad Exam Narrative Exam Narrative: Middle-age female sitting up in chair with the right arm wrapped in an Ayush wrap and a posterior splint resting in a sling. HEENT is unremarkable. There is no nystagmus. Neck is supple nontender no JVD normal carotid pulses no bruits no thyromegaly. Lungs are clear to auscultation. Heart is regular rate and rhythm without murmur rub or gallop. Abdomen soft and nontender with normal active bowel sounds no bruits no palpable masses no organomegaly. Extremities no peripheral cyanosis or edema. Good capillary refill in the fingers of her right hand. Good sensation light touch. Unable to assess hand saddle stitch operator strength or arm strength due to the right arm being in a splint and sling. Lower extremities with normal strength and range of motion. Neurologic exam is grossly intact no focal deficits. No facial asymmetry no dysarthric speech extraocular motion intact no nystagmus. No focal motor deficits no focal sensory deficits. Genitalia rectal exam deferred. Psych: mood appears grim, sad. Psych Mental Status: mental status grossly normal and other Speech and Movement: speech and movement normal Mood: other Affect: sad DS: Data Vitals/I&O Vitals and I&O: Vital Signs Temperature 37.1 C 08/30/19 03:15 Temperature Source Tympanic 08/30/19 03:15 Pulse 94 H 08/30/19 03:15 Pulse Rhythm Regular 08/30/19 03:15 Pulse Strength Normal 08/28/19 14:25 Respiratory Rate 17 08/30/19 03:15 Respiratory Effort Non-Labored 08/30/19 03:15 Respiratory Depth Normal 08/30/19 03:15 Respiratory Pattern Normal 08/30/19 03:15 Blood Pressure 108/70 08/30/19 03:15 Blood Pressure Mean 81 08/28/19 14:25 Blood Pressure Position Supine 08/28/19 14:25 Pulse Oximetry 95 08/30/19 03:15 Oxygen Delivery Method Room Air 08/30/19 03:15 Oxygen Flow Rate 0 08/30/19 03:15 Pain Level 0 08/30/19 03:15 Intake & Output 08/29/19 08/29/19 08/30/19 11:59 23:59 11:59 Intake Total 1560 / 2110 550 / 2110 400 / 400 Output Total 850 / 1550 700 / 1550 Balance 710 / 560 -150 / 560 400 / 400 Weight 64.5 kg 66.8 kg Intake: IV 1000 / 1060 60 / 1060 Oral 560 / 1050 490 / 1050 400 / 400 Output: Urine 850 / 1550 700 / 1550 Other: Urine Color Pale Yellow Yellow Yellow Urine Appearance Clear Clear Clear Urine Odor Normal Normal Normal Voiding Methods Bedside Commode Bedside Commode Toilet Data Completed and Pending Completed studies during hospitalization [Text1]: CLINICAL HISTORY: pain. TECHNIQUE: 2D digital imaging was performed. COMPARISON: No exams were available for comparison FINDINGS: BONES: There is a nondisplaced fracture involving the superior aspect of the medial epicondyle of the right humerus. No bony destructive lesion is seen. JOINTS: The elbow is normally aligned. No joint effusion is seen. SOFT TISSUE: Normal. IMPRESSION: Nondisplaced fracture involving the superior aspect of the medial epicondyle of the right humerus. Exam(s) a CT:CT upper extremity RT wo EXAM: CT UPPER EXTREMITY RT WO TECHNIQUE: Imaging Protocol: Axial computed tomography images with coronal and sagittal reformatted images were created and reviewed CONTRAST MATERIAL: None COMPARISON: XR ELBOW RT COMPLETE from 08/28/2019 FINDINGS: There is a nondisplaced fracture seen extending transversely through the condylar region of the humerus. There is no visible extension to the articular surface. No additional fractures are identified. A splint is in place. There is mild soft tissue swelling. IMPRESSION: Nondisplaced fracture of the distal humerus. No intra-articular extension. Labs on day of discharge: Labs from last 24 hours 08/29/19 06:55 Hemoglobin A1c 8.2 H [facility] Medical History Auditory hallucinations (Acute) Back pain (Acute) Calcium kidney stone (Acute) Chronic constipation (Acute) COPD (chronic obstructive pulmonary disease) (Chronic) Depressive disorder (Acute) Diabetes mellitus (Chronic) Fatigue (Acute) Fracture of orbital floor, left side, sequela (Acute) GERD (gastroesophageal reflux disease) (Chronic) Glaucoma (Chronic) Headache (Acute) Hip pain, bilateral (Acute) Hyperlipidemia (Acute) Hypertension (Chronic) Insomnia (Acute) Intracranial aneurysm (Chronic) Knee pain, bilateral (Acute) Low back pain (Acute) Lumbar back pain (Acute) Migraine headache with aura (Acute) Migraine headache without aura (Acute) Osteoarthritis (Chronic) Overweight (Acute) Paranoid schizophrenia (Acute) Polyarthralgia (Acute) Tobacco use disorder (Acute) Umbilical hernia without mention of obstruction or gangrene (Acute) Urinary frequency (Acute) Vitamin D deficiency (Acute) Surgical History (Updated 08/28/19 @ 22:27 by Usman Brewer) History of bilateral tubal ligation (Acute) Status post coil embolization of cerebral aneurysm (Acute) Family History Father Colon cancer Renal cancer Sister Breast cancer Mother Abdominal aortic aneurysm Brother Psychiatric illness Social History Smoking/Tobacco Use Status: Current every day Tobacco Type: cigarettes Alcohol Intake: former Drug use: Current Sobriety Substance use type: does not use Do you feel safe at home: No Do you feel safe in your relationship?: Yes
--- NOTE | 2019-08-30 09:37 | PDOC.CMDIS ---
LACE Index Scoring Tool - Questions: Length of Stay (in days): 2 Acuity (Admit via E.D.?): Yes Comorbidities: Diabetes w/o Complication, Chronic Pulmonary Disease E.D. Visits: 2 - Answers: Total Score: 10 Risk of Readmission: High Risk Care Management Discharge Reason for Hospitalization: Frequent falls, Gait Instability, UTI, HIPOLITO Discharge Plan: Nya will return to [facility] when ready per provider, she will have new orders for [facility]/PT. She will follow up with her PCP and plan of care as prescribed. She will transport via private vehicle with HOME PERFORMANCE CONSULTANT. Patient/Family Education Needs: Review of discharge instructions, discuss Ask Me Three. Services Needed at Discharge: Day Care ([facility] ), Home Health Care Services ([facility] ), Transportation (HOME PERFORMANCE CONSULTANT/[facility])
[2019-08-30 10:09] VITALS: PULSE 88
--- NOTE | 2019-08-30 10:52 | PT.INTREAT ---
PT Notes Visit Reasons: FREQUENT FALLS, GAIT INSTABILITY, UTI, HIPOLITO Inpatient Physical Therapy Treatment Note [facility] Date: 08/30/19 PRECAUTIONS:Fall/ Standard SUBJECTIVE: Pt reports that she doesn't like to wear the sling because it pulls on her neck. OBJECTIVE: Sit-stand: SBA Stand-sit: SBA GAIT Assistive Device: No assist device Weight bearing: Full Assist: PODIATRIC ASSISTANT Distance: 150ft THEREX: Pt completed LE strengthening ther ex as per flow sheet and L UE ther ex as per flow sheet. ASSESSMENT: Pt tolerated today's session fairly well. Pt did agree to wear the sling while walking at least. PLAN: Cont as per PT POC. TREATMENT CODE/TIME: 9:25-9:45 (20) TA
== END 2019-08-30 11:29 | disposition other institution (70) ==
LOC: ER 18:23 → MS 19:45
PROVIDERS: Admitting Provider Internal Medicine; Emergency Provider Physician Assistant; PCP Specialist/Technologist Athletic Trainer; Visit Provider Internal Medicine
DX: N39.0 Urinary tract infection, site not specified (principal); R42 Dizziness and giddiness; S42.444A Nondisplaced fracture (avulsion) of medial epicondyle of right humerus, initial encounter for closed fracture; W18.39XA Other fall on same level, initial encounter; F32.9 Major depressive disorder, single episode, unspecified; R29.6 Repeated falls; Z91.81 History of falling; R45.851 Suicidal ideations; I67.1 Cerebral aneurysm, nonruptured; J44.9 Chronic obstructive pulmonary disease, unspecified; E11.9 Type 2 diabetes mellitus without complications; K21.9 Gastro-esophageal reflux disease without esophagitis; H40.9 Unspecified glaucoma; E78.5 Hyperlipidemia, unspecified; I10 Essential (primary) hypertension; M19.90 Unspecified osteoarthritis, unspecified site; F17.210 Nicotine dependence, cigarettes, uncomplicated; E55.9 Vitamin D deficiency, unspecified; N17.9 Acute kidney failure, unspecified; G43.909 Migraine, unspecified, not intractable, without status migrainosus; F20.0 Paranoid schizophrenia; K59.09 Other constipation; R26.2 Difficulty in walking, not elsewhere classified; B96.1 Klebsiella pneumoniae [K. pneumoniae] as the cause of diseases classified elsewhere
CPT/HCPCS: 24560; 36415; 80048; 80053; 87077; 93005; 96372; 97162; 97530; 99220; 99222; 99233; 99239; 99254; 99285; J1650; 73080; 73200; 81003; 81015; 83036; 84443; 84484; 85025; 87086; 87186; 93010; 99217; 99226; G0378; J0696; J3490; L3650

== ENCOUNTER → 2019-08-29 07:43 | Outpatient (BNVA) | payer MEDICARE, MEDICAID, SELFPAY ==
--- NOTE | 2019-09-01 12:49 | PT.INDS ---
Date of service: 09/01/19 PT Notes Visit Reasons: INPATIENT [facility]-DIZZINESS FREQUENT F[facility] Inpatient Physical Therapy Discharge Summary Dates: 09/01/2019 Dates of Service: 08/29/2019 through 08/30/2019 This is a clinical summary of care provided on the duration of dates listed above. No charge was made in the completion of this documentation. Referring Doctor: Usman Brewer M.D. PT Orders: PT CONSULT: Fall safety assessment Precautions: Fall. Standard. Activity as tolerated. Sling on when OOB. Patient Profile/Admitting Diagnosis: Pt is a 64-year-old female, with a history of intracranial aneurysm, paranoid schizophrenia, and bipolar disorder, that presented that to the ER on 08/28/2019 for the feeling of being off balance and frequent falls (5 falls in 2 months). She was admitted to the hospital with diagnoses of dizziness, ambulatory dysfunction, UTI, acute kidney injury, and nondisplaced fracture of the superior aspect of the right medial epicondyle. PMHX: Medical History (Updated 08/28/19 @ 22:32 by Usman Brewer) Auditory hallucinations (Acute) Back pain (Acute) Calcium kidney stone (Acute) Chronic constipation (Acute) COPD (chronic obstructive pulmonary disease) (Chronic) Depressive disorder (Acute) Diabetes mellitus (Chronic) Fatigue (Acute) Fracture of orbital floor, left side, sequela (Acute) GERD (gastroesophageal reflux disease) (Chronic) Glaucoma (Chronic) Headache (Acute) Hip pain, bilateral (Acute) Hyperlipidemia (Acute) Hypertension (Chronic) Insomnia (Acute) Intracranial aneurysm (Chronic) Knee pain, bilateral (Acute) Low back pain (Acute) Lumbar back pain (Acute) Migraine headache with aura (Acute) Migraine headache without aura (Acute) Osteoarthritis (Chronic) Overweight (Acute) Paranoid schizophrenia (Acute) Polyarthralgia (Acute) Tobacco use disorder (Acute) Umbilical hernia without mention of obstruction or gangrene (Acute) Urinary frequency (Acute) Vitamin D deficiency (Acute) Surgical History (Updated 08/28/19 @ 22:27 by Usman Brewer) History of bilateral tubal ligation (Acute) Status post coil embolization of cerebral aneurysm (Acute) Social History/Home Situation: Pt is a resident at [facility]. Equipment Owned/DME: none Subjective: NT Objective: General Observation:NT Mental Status: NT Pain: NT ROM: Right Upper Extremity: Shoulder Flexion NT due to pain. Shoulder abduction NT due to pain. Elbow flexion NT due to pain. Wrist flexion WFL. Opening and closing of hand WFL. Left Upper Extremity: Shoulder Flexion WFL. Shoulder abduction WFL. Elbow flexion WFL. Wrist flexion WFL. Opening and closing of hand WFL. Right Lower Extremity: Hip flexion WFL. Hip abduction WFL. Knee flexion WFL. Ankle dorsiflexion WFL. Ankle plantarflexion WFL. Left Lower Extremity: Hip flexion WFL. Hip abduction WFL. Knee flexion WFL. Ankle dorsiflexion WFL. Ankle plantarflexion WFL. Strength: Right Upper Extremity: Shoulder flexors NT due to pain. Shoulder abductors NT due to pain. Elbow flexors NT due to pain. Elbow extensors NT due to pain. Broadcast Engineer functional. Left Upper Extremity: Shoulder flexors 3-/5. Shoulder abductors 3-/5. Elbow flexors 4-/5. Elbow extensors 3+/5. Broadcast Engineer functional. Right Lower Extremity: Hip flexors 3+/5 (pain in anterior hip). Hip abductors 3+/5. Knee flexors 4-/5. Knee extensors 4/5. Ankle dorsiflexors 5/5. Ankle plantarflexors 5/5. Left Lower Extremity: Hip flexors 3+/5. Hip abductors 3+/5. Knee flexors 4-/5. Knee extensors 4/5. Ankle dorsiflexors 5/5. Ankle plantarflexors 5/5. Sensation: Intact as to pain and pressure on bilateral lower extremities. Bed Mobility/Transfers: Rolling supervision Supine to sit supervision Sit to supine SBA Sit to stand SBA Stand to sit SBA Bed to chair SBA Chair to bed SBA Gait: Pt was able to ambulate 150 feet, full weight bearing, with with no assistive device with SBA. Reciprocal step through gait pattern with decreased step length and height. Balance: Static Sitting: Normal Dynamic Sitting: Normal Static Standing: Good Dynamic Standing: Good Assessment: Pt is a 64-year-old female with a history of intracranial aneurysm, paranoid schizophrenia, and bipolar disorder, that presented that to the ER on 08/28/2019 for the feeling of being off balance and frequent falls (5 falls in 2 months). She was admitted to the hospital with diagnoses of dizziness, ambulatory dysfunction, UTI, acute kidney injury, and non-displaced fracture of the superior aspect of the right medial epicondyle. Pt presents with impairment level findings and functional limitations as listed below. She demonstrates increased fall risk due to decreased strength, impaired balance, impaired functional use of the right upper extremity, and history of multiple falls. She would continue to benefit from skilled home health physical therapy services in order to achieve goals listed below. Patient presented with clinical signs and symptoms consistent with current/admitting diagnoses that have resulted to mobility limitations, gait instability, and generalized weakness as demonstrated by the following impairment level findings: 1. Decreased strength to B LE and UE major muscle groups 2. Impaired standing balance 3. Impaired activity tolerance 4. Limitation of joint range of motion in right UE Impairments contributed to the following functional limitations: 1. Dependent bed mobility skills 2. Increased dependence with transfers 3. Inability to safely ambulate without assistive device and physical assistance 4. Increase completion time for mobility ADL performance 5. Increased fall risk 6. Inability to negotiate steps alone safely Goals: Goals X1 week 1. Supine-Sit independent NOT MET 2. Sit-Supine independent NOT MET 3. Sit-Stand independent NOT MET 4. Stand-Sit independent NOT MET 5. Bed-Chair independent NOT MET 6. Chair-Bed independent NOT MET 7. Independent gait on level surface with use of least restrictive device for at least 300 feet without report of pain nor dyspnea NOT MET 8. Independent with home exercise program NOT MET 9. Good static and dynamic standing balance/tolerance NOT MET DISCHARGE RECOMMENDATIONS: Once medically cleared the pt may return to her senior living. She would benefit from home health physical therapy in order to progress mobility level, strength, and balance. TREATMENT CODE/TIME: NM. Thank you very much for this referral. Rina Washington PT, DPT, CLT [facility] [place], [place]
== END ==
PROVIDERS: PCP Specialist/Technologist Athletic Trainer; Referring Provider Internal Medicine; Visit Provider Psychiatry & Neurology Neurology
DX: R69 Illness, unspecified (principal)

== ENCOUNTER → 2019-09-17 09:00 | Outpatient (BNVA) | payer MEDICARE, MEDICAID, SELFPAY | PROVIDERS: PCP Specialist/Technologist Athletic Trainer; Referring Provider Specialist/Technologist Athletic Trainer; Visit Provider Student in an Organized Health Care Education/Training Program | DX: S42.414A Nondisplaced simple supracondylar fracture without intercondylar fracture of right humerus, initial encounter for closed fracture (principal); W19.XXXA Unspecified fall, initial encounter | CPT/HCPCS: 99213 ==

== ENCOUNTER 2019-10-02 09:21 | Outpatient (REF) | payer MEDICARE, MEDICAID, SELFPAY ==
[2019-10-02 19:07] LABS: Abs Immature Grans 0.01 k/cumm (0.0-0.09); Absolute Basophil Count 0.01 k/cumm (0.0-0.2); Absolute Eosinophil Count 0.06 k/cumm (0.0-0.7); Absolute Lymphocyte Count 1.19 k/cumm (1.2-3.4); Absolute Monocyte Count 0.36 k/cumm (0.11-0.7); Absolute Neutrophil Count 5.52 k/cumm (1.2-6.7); Basophils % 0.1; Eosinophils % 0.8; HCT 33.3 % (36.0-46.0); HGB 10.7 g/dL (12.0-15.5); Immature Grans % 0.1 %; Lymphocytes % 16.6; Mean Corp. HGB Concentration 32.1 g/dL (32.0-36.0); Mean Corpuscular Hemoglobin 28.5 pg (27.0-33.0); Mean Corpuscular Volume 88.8 fL (80-95); Mean Platelet Volume 10.7 fL (8.0-11.0); Neutrophils % 77.4; Platelet Count 258 x1000/uL (130-400); RBC 3.75 m/cumm (4.00-5.20); RBC Distribution Width 14.2 % (11.7-14.6); White Blood Cell Count 7.15 k/cumm (4.4-10.8)
== END 2019-10-02 09:41 ==
LOC: NCHCN 09:21
PROVIDERS: PCP Specialist/Technologist Athletic Trainer; Visit Provider Nurse Practitioner Family
DX: E11.9 Type 2 diabetes mellitus without complications (principal); I10 Essential (primary) hypertension; J44.9 Chronic obstructive pulmonary disease, unspecified
CPT/HCPCS: 85025

== ENCOUNTER 2019-10-07 11:36 | Outpatient (CLI) | payer MEDICARE, MEDICAID, SELFPAY ==
--- NOTE | 2019-10-07 11:38 | DI.RAD_ITS ---
EXAM: XR ELBOW RT LIMITED CLINICAL HISTORY: F/U FRACTURE. TECHNIQUE: 2D digital imaging was performed. COMPARISON: XR ELBOW RT COMPLETE from 08/28/2019 FINDINGS: BONES: There has been no change in alignment of the nondisplaced fracture involving the distal right humerus. No new fractures are seen. No bony destructive lesion is seen. JOINTS: The elbow is normally aligned. No joint effusion is seen. SOFT TISSUE: Normal. IMPRESSION: Stable healing distal right humeral fracture. DATA REPOSITORY: RADIATION DOSE DELIVERED:
== END 2019-10-07 11:56 ==
PROVIDERS: PCP Specialist/Technologist Athletic Trainer; Referring Provider Specialist/Technologist Athletic Trainer; Visit Provider Student in an Organized Health Care Education/Training Program
DX: S42.411D Displaced simple supracondylar fracture without intercondylar fracture of right humerus, subsequent encounter for fracture with routine healing; X58.XXXD Exposure to other specified factors, subsequent encounter; J44.9 Chronic obstructive pulmonary disease, unspecified; E11.9 Type 2 diabetes mellitus without complications; I10 Essential (primary) hypertension
CPT/HCPCS: 99213; 73070

== ENCOUNTER 2019-12-03 01:24 | Outpatient (CLI) | payer MEDICARE, MEDICAID, SELFPAY ==
[2019-12-03 13:47] LABS: Abs Immature Grans 0.01 k/cumm (0.0-0.09); Absolute Basophil Count 0.03 k/cumm (0.0-0.2); Absolute Eosinophil Count 0.32 k/cumm (0.0-0.7); Absolute Lymphocyte Count 1.61 k/cumm (1.2-3.4); Absolute Monocyte Count 0.52 k/cumm (0.11-0.7); Absolute Neutrophil Count 6.23 k/cumm (1.2-6.7); Basophils % 0.3; Eosinophils % 3.7; HCT 34.4 % (36.0-46.0); Immature Grans % 0.1 %; Lymphocytes % 18.5; Mean Corpuscular Hemoglobin 29.1 pg (27.0-33.0); Mean Platelet Volume 9.8 fL (8.0-11.0); Neutrophils % 71.4; Platelet Count 288 x1000/uL (130-400); RBC 3.78 m/cumm (4.00-5.20); RBC Distribution Width 14.1 % (11.7-14.6); White Blood Cell Count 8.72 k/cumm (4.4-10.8)
== END 2019-12-03 01:44 ==
PROVIDERS: PCP Specialist/Technologist Athletic Trainer; Visit Provider Nurse Practitioner Psychiatric/Mental Health
DX: I10 Essential (primary) hypertension (principal); Z79.899 Other long term (current) drug therapy; F20.9 Schizophrenia, unspecified
CPT/HCPCS: 36415; 85025

== ENCOUNTER 2019-12-18 01:23 | Outpatient (CLI) | payer MEDICARE, MEDICAID, SELFPAY ==
--- NOTE | 2019-12-18 | DI.DEXA_ITS ---
EXAM: XR DEXA BONE DENSITY W/WO VIV CLINICAL HISTORY: MENOPAUSE, Z78.0; DISPLACED SIMPLE SUPRACONDYLAR FX, RT HUMERUS, S42.411S TECHNIQUE: COMPARISON: CR XR hip pelvis adult Bl from 01/14/2019 FINDINGS: DEXA scan was performed according to the usual protocol. Please see the accompanying data sheets. F indings for left hip scanning are T-score -1.9 with left femoral neck T-score -2.1. Lumbar spine scanning shows T-score -2.2. Left forearm scanning shows T-score -3.4. IMPRESSION: Findings consistent with osteoporosis according to the WHO criteria. The lateral vertebral scanogram shows no evidence of a vertebral compression fracture.
--- NOTE | 2019-12-18 15:01 | DI.MAMMO_ITS ---
EXAM: MAMMO SCREENING CLINICAL HISTORY: SCREENING, [facility], ADULT, Z00.00 TECHNIQUE: Mammograms were interpreted according to the usual protocol including computer analysis w [facility] CAD system, tomosynthesis and C-view imaging. COMPARISON: FINDINGS: Breasts are heterogeneously dense. No dominant mass or clumped microcalcification is identified in e ither breast. The current examination is compared with previous examination of March 2016 and ther e is question interval increase in prominence of a focal area of nodularity or asymmetric density pro jected in the central superior portion of right breast on MLO view. No other significant change seen . Additional mammographic views of the right breast are requested for further evaluation to include an MLO spot compression view of the right breast. . IMPRESSION: Additional mammographic views of the right breast requested as described above. Breast ultrasound m ay be indicated as well depending on the results additional mammographic views Category: BI-RADS Cat 0 - Assessment Incomplete: Need additional imaging evaluation Breast Density - Category C - Heterogeneously dense
--- NOTE | 2020-01-08 | DI.US_ITS ---
EXAM: MG MAMMO SCREEN CALL BACK UNI CLINICAL HISTORY: F/U MAMMO, ? INCREASE IN PROMINENCE ASYMMETRIC DENSITY TECHNIQUE: Mammograms were interpreted according to the usual protocol including computer analysis w ith CAD system, tomosynthesis and C-view imaging. COMPARISON: FINDINGS: Additional mammographic views the right breast and right breast ultrasound are interpreted in conjunc tion. These examinations were obtained to evaluate questionable area of asymmetric density in approx imately the 12 o'clock position in the right breast seen on recent mammogram. Additional mammographi c views fail to show a discrete mass. Breast ultrasound shows no evidence of a mass or cyst. IMPRESSION: No specific evidence of malignancy at this time. Follow-up unilateral right breast mammogram recomme nded in 6 months. BI-RADS Category 3 - 6 month - Probably Benign Finding: Recommend follow-up mammography in 6 months Breast Density - Category C - Heterogeneously dense
== END 2019-12-18 01:43 ==
PROVIDERS: PCP Specialist/Technologist Athletic Trainer; Visit Provider Nurse Practitioner Family
DX: Z12.31 Encounter for screening mammogram for malignant neoplasm of breast (principal); R92.8 Other abnormal and inconclusive findings on diagnostic imaging of breast; M81.0 Age-related osteoporosis without current pathological fracture; Z78.0 Asymptomatic menopausal state
CPT/HCPCS: 77063; 77067; 77080

== ENCOUNTER 2019-12-29 17:28 | Outpatient (REF) | payer MEDICARE, MEDICAID, SELFPAY | END 2019-12-29 17:48 | LOC: NCHCN 17:28 | PROVIDERS: PCP Specialist/Technologist Athletic Trainer; Visit Provider Nurse Practitioner Family | DX: R35.0 Frequency of micturition (principal) | CPT/HCPCS: 87086 ==

== ENCOUNTER 2019-12-30 02:12 | Outpatient (CLI) | payer MEDICARE, MEDICAID, SELFPAY ==
[2019-12-30 10:32] LABS: Abs Immature Grans 0.02 k/cumm (0.0-0.09); Absolute Basophil Count 0.02 k/cumm (0.0-0.2); Absolute Eosinophil Count 0.24 k/cumm (0.0-0.7); Absolute Lymphocyte Count 1.29 k/cumm (1.2-3.4); Absolute Monocyte Count 0.45 k/cumm (0.11-0.7); Absolute Neutrophil Count 5.64 k/cumm (1.2-6.7); Basophils % 0.3; Eosinophils % 3.1; HCT 34.6 % (36.0-46.0); HGB 11.3 g/dL (12.0-15.5); Immature Grans % 0.3 %; Lymphocytes % 16.8; Mean Corp. HGB Concentration 32.7 g/dL (32.0-36.0); Mean Corpuscular Hemoglobin 29.3 pg (27.0-33.0); Mean Corpuscular Volume 89.6 fL (80-95); Mean Platelet Volume 9.5 fL (8.0-11.0); Monocytes % 5.9; Neutrophils % 73.6; Platelet Count 285 x1000/uL (130-400); RBC 3.86 m/cumm (4.00-5.20); RBC Distribution Width 13.8 % (11.7-14.6); White Blood Cell Count 7.66 k/cumm (4.4-10.8)
== END 2019-12-30 02:32 ==
PROVIDERS: PCP Specialist/Technologist Athletic Trainer; Visit Provider Nurse Practitioner Family
DX: F20.9 Schizophrenia, unspecified (principal); Z79.899 Other long term (current) drug therapy
CPT/HCPCS: 36415; 85025

== ENCOUNTER 2020-01-08 01:11 | Outpatient (CLI) | payer MEDICARE, MEDICAID, SELFPAY | END 2020-01-08 01:31 | PROVIDERS: PCP Specialist/Technologist Athletic Trainer; Visit Provider Nurse Practitioner Family | DX: Z12.31 Encounter for screening mammogram for malignant neoplasm of breast (principal); R92.8 Other abnormal and inconclusive findings on diagnostic imaging of breast; N64.59 Other signs and symptoms in breast | CPT/HCPCS: 76642; 77063; 77067 ==

== ENCOUNTER 2020-01-27 01:37 | Outpatient (CLI) | payer MEDICARE, MEDICAID, SELFPAY ==
[2020-01-27 12:09] LABS: Abs Immature Grans 0.03 10^3/uL (0.0-0.06); Absolute Basophil Count 0.05 10^3/uL (0.0-0.2); Absolute Eosinophil Count 0.24 10^3/uL (0.0-0.7); Absolute Monocyte Count 0.57 10^3/uL (0.1-0.8); Absolute Neutrophil Count 7.07 10^3/uL (1.2-6.7); Basophils % 0.5; Eosinophils % 2.5; HCT 35.1 % (36.0-46.0); HGB 11.3 g/dL (11.2-15.7); Immature Grans % 0.3; Lymphocytes % 18.4; MCH 29.7 pg (27.0-33.0); MCHC 32.2 % (32.0-36.0); MCV 92.1 fL (80-95); Monocytes % 5.8; Neutrophils % 72.5; Nucleated RBC 0 %; Platelet Count 238 10^3/uL (130-400); RBC 3.81 10^6/uL (3.93-5.22); RDW 13.2 % (11.7-14.6); RDW-SD 44.7 fL; WBC 9.76 10^3/uL (4.4-10.8)
== END 2020-01-27 01:57 ==
PROVIDERS: PCP Specialist/Technologist Athletic Trainer; Visit Provider Nurse Practitioner Family
DX: F20.9 Schizophrenia, unspecified (principal); Z79.899 Other long term (current) drug therapy
CPT/HCPCS: 36415; 85025

== ENCOUNTER 2020-02-25 05:01 | Outpatient (CLI) | payer MEDICARE, MEDICAID, SELFPAY ==
[2020-02-25 12:18] LABS: Abs Immature Grans 0.04 10^3/uL (0.0-0.06); Absolute Basophil Count 0.05 10^3/uL (0.0-0.2); Absolute Eosinophil Count 0.21 10^3/uL (0.0-0.7); Absolute Lymphocyte Count 1.64 10^3/uL (1.2-3.4); Absolute Monocyte Count 0.53 10^3/uL (0.1-0.8); Absolute Neutrophil Count 7.37 10^3/uL (1.2-6.7); Basophils % 0.5; Eosinophils % 2.1; HCT 33.6 % (36.0-46.0); Immature Grans % 0.4; Lymphocytes % 16.7; MCH 29.7 pg (27.0-33.0); MCHC 32.7 % (32.0-36.0); MCV 90.8 fL (80-95); MPV 9.4 fL (8.0-11.0); Monocytes % 5.4; Neutrophils % 74.9; Nucleated RBC 0 %; Platelet Count 290 10^3/uL (130-400); RDW 13.2 % (11.7-14.6); RDW-SD 43.5 fL; WBC 9.84 10^3/uL (4.4-10.8)
== END 2020-02-25 05:21 ==
PROVIDERS: Nurse Practitioner Family; PCP Nurse Practitioner Family; Visit Provider Nurse Practitioner Psychiatric/Mental Health
DX: F20.9 Schizophrenia, unspecified (principal); Z79.899 Other long term (current) drug therapy
CPT/HCPCS: 36415; 85025

== ENCOUNTER 2020-03-25 04:57 | Outpatient (CLI) | payer MEDICARE, MEDICAID, SELFPAY ==
[2020-03-25 13:08] LABS: Abs Immature Grans 0.02 10^3/uL (0.0-0.06); Absolute Basophil Count 0.05 10^3/uL (0.0-0.2); Absolute Eosinophil Count 0.12 10^3/uL (0.0-0.7); Absolute Lymphocyte Count 1.64 10^3/uL (1.2-3.4); Absolute Monocyte Count 0.46 10^3/uL (0.1-0.8); Absolute Neutrophil Count 6.39 10^3/uL (1.2-6.7); Basophils % 0.6; Eosinophils % 1.4; HCT 29.8 % (36.0-46.0); HGB 9.8 g/dL (11.2-15.7); Immature Grans % 0.2; Lymphocytes % 18.9; MCH 29.8 pg (27.0-33.0); MCHC 32.9 % (32.0-36.0); MCV 90.6 fL (80-95); MPV 9.7 fL (8.0-11.0); Monocytes % 5.3; Neutrophils % 73.6; Nucleated RBC 0 %; Platelet Count 266 10^3/uL (130-400); RBC 3.29 10^6/uL (3.93-5.22); RDW 12.9 % (11.7-14.6); RDW-SD 42.4 fL; WBC 8.68 10^3/uL (4.4-10.8)
== END 2020-03-25 05:17 ==
PROVIDERS: PCP Nurse Practitioner Family; Visit Provider Nurse Practitioner Family
DX: F20.9 Schizophrenia, unspecified (principal); Z79.899 Other long term (current) drug therapy
CPT/HCPCS: 36415; 85025

== ENCOUNTER 2020-04-15 18:31 | Outpatient (REF) | payer MEDICARE, MEDICAID, SELFPAY | END 2020-04-15 18:51 | LOC: NCHCN 18:31 | PROVIDERS: PCP Nurse Practitioner Family; Visit Provider Nurse Practitioner Family | DX: R35.0 Frequency of micturition (principal) | CPT/HCPCS: 87077; 87086; 87186 ==

== ENCOUNTER 2020-04-27 03:11 | Outpatient (CLI) | payer MEDICARE, MEDICAID, SELFPAY ==
[2020-04-27 11:06] LABS: Abs Immature Grans 0.04 10^3/uL (0.0-0.06); Absolute Basophil Count 0.05 10^3/uL (0.0-0.2); Absolute Eosinophil Count 0.24 10^3/uL (0.0-0.7); Absolute Lymphocyte Count 1.47 10^3/uL (1.2-3.4); Absolute Monocyte Count 0.49 10^3/uL (0.1-0.8); Absolute Neutrophil Count 8.04 10^3/uL (1.2-6.7); Basophils % 0.5; Eosinophils % 2.3; HCT 31.6 % (36.0-46.0); HGB 10.1 g/dL (11.2-15.7); Immature Grans % 0.4; Lymphocytes % 14.2; MCH 29.5 pg (27.0-33.0); MCV 92.4 fL (80-95); MPV 9.8 fL (8.0-11.0); Monocytes % 4.7; Neutrophils % 77.9; Nucleated RBC 0 %; Platelet Count 246 10^3/uL (130-400); RBC 3.42 10^6/uL (3.93-5.22); RDW 13.5 % (11.7-14.6); RDW-SD 46.2 fL; WBC 10.33 10^3/uL (4.4-10.8)
== END 2020-04-27 03:31 ==
PROVIDERS: PCP Nurse Practitioner Family; Visit Provider Nurse Practitioner Family
DX: F20.9 Schizophrenia, unspecified (principal); Z79.899 Other long term (current) drug therapy
CPT/HCPCS: 36415; 85025

== ENCOUNTER 2020-05-25 03:00 | Outpatient (CLI) | payer MEDICARE, MEDICAID, SELFPAY ==
[2020-05-25 11:12] LABS: Abs Immature Grans 0.03 10^3/uL (0.0-0.06); Absolute Basophil Count 0.04 10^3/uL (0.0-0.2); Absolute Eosinophil Count 0.12 10^3/uL (0.0-0.7); Absolute Monocyte Count 0.44 10^3/uL (0.1-0.8); Absolute Neutrophil Count 5.96 10^3/uL (1.2-6.7); Basophils % 0.5; Eosinophils % 1.4; HCT 30.1 % (36.0-46.0); HGB 9.8 g/dL (11.2-15.7); Immature Grans % 0.4; Lymphocytes % 20.5; MCH 29.1 pg (27.0-33.0); MCHC 32.6 % (32.0-36.0); MCV 89.3 fL (80-95); MPV 9.9 fL (8.0-11.0); Monocytes % 5.3; Neutrophils % 71.9; Nucleated RBC 0 %; Platelet Count 271 10^3/uL (130-400); RBC 3.37 10^6/uL (3.93-5.22); RDW 13.8 % (11.7-14.6); RDW-SD 44.6 fL; WBC 8.29 10^3/uL (4.4-10.8)
== END 2020-05-25 03:20 ==
PROVIDERS: PCP Nurse Practitioner Family; Visit Provider Nurse Practitioner Family
DX: F20.9 Schizophrenia, unspecified (principal); Z79.899 Other long term (current) drug therapy
CPT/HCPCS: 36415; 85025

== ENCOUNTER → 2020-06-08 07:26 | Outpatient (BNVA) | payer MEDICARE, MEDICAID, SELFPAY | PROVIDERS: PCP Nurse Practitioner Family; Referring Provider Nurse Practitioner Family; Visit Provider Nurse Practitioner Adult Health | DX: G43.009 Migraine without aura, not intractable, without status migrainosus (principal); G43.109 Migraine with aura, not intractable, without status migrainosus | CPT/HCPCS: 99213; 99442 ==

== ENCOUNTER 2020-06-22 03:13 | Outpatient (CLI) | payer MEDICARE, MEDICAID, SELFPAY ==
[2020-06-22 11:35] LABS: Abs Immature Grans 0.03 10^3/uL (0.0-0.06); Absolute Basophil Count 0.04 10^3/uL (0.0-0.2); Absolute Eosinophil Count 0.23 10^3/uL (0.0-0.7); Absolute Lymphocyte Count 1.31 10^3/uL (1.2-3.4); Absolute Monocyte Count 0.61 10^3/uL (0.1-0.8); Absolute Neutrophil Count 8.53 10^3/uL (1.2-6.7); Basophils % 0.4; Eosinophils % 2.1; HCT 32.4 % (36.0-46.0); HGB 10.3 g/dL (11.2-15.7); Immature Grans % 0.3; Lymphocytes % 12.2; MCH 29.2 pg (27.0-33.0); MCHC 31.8 % (32.0-36.0); MCV 91.8 fL (80-95); MPV 10.1 fL (8.0-11.0); Monocytes % 5.7; Neutrophils % 79.3; Nucleated RBC 0 %; Platelet Count 279 10^3/uL (130-400); RBC 3.53 10^6/uL (3.93-5.22); RDW 14.1 % (11.7-14.6); RDW-SD 47.3 fL; WBC 10.75 10^3/uL (4.4-10.8)
== END 2020-06-22 03:33 ==
PROVIDERS: Psychiatry & Neurology Psychiatry; PCP Nurse Practitioner Family; Visit Provider Nurse Practitioner Family
DX: F20.9 Schizophrenia, unspecified (principal); Z79.899 Other long term (current) drug therapy
CPT/HCPCS: 36415; 85025

== ENCOUNTER 2020-07-05 01:06 | Outpatient (CLI) | payer MEDICARE, MEDICAID, SELFPAY ==
--- NOTE | 2020-07-05 14:00 | DI.MAMMO_ITS ---
EXAM: MG MAMMO DIAGNOSTIC UNI-RIGHT CLINICAL HISTORY: F/U ABNL MAMMO, 6 MO F/U, R92.8. TECHNIQUE: Unilateral spot mammographic images were obtained with 3D [employer] and util izing computer aided detection (CAD). COMPARISON: Prior mammograms dating back to 2015, the most recent being 2019. Ultrasound of the Dec was also reviewed. FINDINGS: The previously described nodular density 12 o'clock position of the right breast is actually less nikolay dent on today's additional mammographic images, further evidence that is a benign finding. There pre sently no new significant nodules normal appearing microcalcification groups evident in the right sonja ast. IMPRESSION: No radiographic evidence of malignancy in the right breast Appropriate follow-up is to keep this patient yearly mammogram schedule, this implying the [facility] would be in November 2020, with earlier imaging if a self detected breast change is noted. . BI-RADS Category 2 - Benign Findings Breast Density - Category C - Heterogeneously dense Breast density Category C or D implies that the patient has dense breast tissue. Dense breast tissue can make it harder to find cancer on a mammogram. Dense breast tissue is also associated with an incr eased risk of breast cancer. This information about the result of the mammogram report was provided to the patient to raise their awareness. Use this report when you speak with the patient about their risks for breast cancer, which includes their family history. At that time, you may recommend additional screening tests (Ultrasoun d or MRI) as these tests may add significant information. A negative radiographic report should not delay biopsy if a dominant or clinically suspicious mass is present. Up to ten percent of cancers are not identified on mammography. A negative report may reinforce clinical impression. Adenosis and dense breasts may obscure an underlying neoplasm. False positive reports average 6 to 10%. Patient will receive a letter notifying them of these results.
== END 2020-07-05 01:26 ==
PROVIDERS: PCP Nurse Practitioner Family; Visit Provider Nurse Practitioner Family
DX: R92.8 Other abnormal and inconclusive findings on diagnostic imaging of breast (principal)
CPT/HCPCS: 77061; 77065; G0279

== ENCOUNTER → 2020-07-20 07:53 | Outpatient (BNVA) | payer MEDICARE, MEDICAID, SELFPAY | PROVIDERS: PCP Nurse Practitioner Family; Visit Provider Nurse Practitioner Adult Health | DX: G43.009 Migraine without aura, not intractable, without status migrainosus (principal); G43.109 Migraine with aura, not intractable, without status migrainosus | CPT/HCPCS: 99213; 99442 ==

== ENCOUNTER 2020-07-21 02:57 | Outpatient (CLI) | payer MEDICARE, MEDICAID, SELFPAY ==
[2020-07-21 09:15] LABS: Abs Immature Grans 0.05 10^3/uL (0.0-0.06); Absolute Basophil Count 0.04 10^3/uL (0.0-0.2); Absolute Eosinophil Count 0.14 10^3/uL (0.0-0.7); Absolute Lymphocyte Count 0.82 10^3/uL (1.2-3.4); Basophils % 0.3; HGB 8.9 g/dL (11.2-15.7); Immature Grans % 0.4; Lymphocytes % 5.8; MCH 28.9 pg (27.0-33.0); MCV 87.7 fL (80-95); MPV 9.2 fL (8.0-11.0); Monocytes % 6.3; Neutrophils % 86.2; Nucleated RBC 0 %; Platelet Count 279 10^3/uL (130-400); RBC 3.08 10^6/uL (3.93-5.22); RDW 13.2 % (11.7-14.6); RDW-SD 42.5 fL; WBC 14.08 10^3/uL (4.4-10.8)
[2020-07-21 09:18] LABS: Absolute Monocyte Count 0.89 10^3/uL (0.1-0.8); Absolute Neutrophil Count 12.14 10^3/uL (1.2-6.7)
[2020-07-21 10:05] LABS: Diff Comment RBC Morph Reviewed; Microcytosis 1+; Polychromasia Present
== END 2020-07-21 03:17 ==
PROVIDERS: Psychiatry & Neurology Psychiatry; PCP Nurse Practitioner Family; Visit Provider Nurse Practitioner Family
DX: F20.9 Schizophrenia, unspecified (principal); Z79.899 Other long term (current) drug therapy
CPT/HCPCS: 36415; 85025

== ENCOUNTER 2020-08-07 12:58 | Emergency (ER) | payer MEDICARE, MEDICAID, SELFPAY ==
[2020-08-07] VITALS (14 sets, daily range): BP systolic 119–137; BP diastolic 48–109; PULSE 89–103; RESP 11–18; TEMP 36.4; O2SAT 93–100
--- NOTE | 2020-08-07 13:30 | DI.CT_ITS ---
EXAM: CT HEAD CERVICAL SPINE WO CLINICAL HISTORY: neck pain after fall. TECHNIQUE: Imaging Protocol: Axial computed tomography images with coronal and sagittal reformatted images were created and reviewed COMPARISON: No exams were available for comparison FINDINGS: BRAIN: There are no skull fractures nor fluid in the visualized paranasal sinuses. There is a surgical defe ct in the medial wall the right maxillary sinus and mucosal thickening but no fluid level therein. A lso some mucosal thickening in the ethmoid air cells. There is relative sparing of the opposite-left maxillary sinus and sphenoid sinuses and frontal sinuses. There is shadowing density consistent with probable coil material slightly to the right of midline in what is probably the region of the posterior communicating artery, probably related to prior aneurys m treatment. There is no evidence of intracranial hemorrhage, intra or extra-axial. Is relatively symmetrical per iventricular hypodensity consistent with chronic small vessel disease is noted. No shift of midline structures. Ventricles are not enlarged or shifted. There is no blood within the ventricular system . Basal cisterns are obscured from visualization by beam hardening artifact from the coil material. CERVICAL SPINE: There is no evidence of fracture nor listhesis. No significant prevertebral soft tissue swelling. N o facet malalignment evident. No significant osseous lesions evident. IMPRESSION: No acute intracranial findings on this noninfused CT scan of the brain. There is evidence of prior right of center aneurysm treatment. Shadowing densities either clips are coil material. Symmetrical periventricular hypodensity is probably consistent with chronic small ves ana disease. No evidence of cervical spine fracture, malalignment, nor acute compromise of the cervical spinal can al. RADIATION DOSE DELIVERED: 1,063.7mGy.cm Total DLP DATA REPOSITORY: All CT scans at this facility are submitted to the National Radiology Data Registry (NRDR) Dose Index Registry (DIR) with the [employer] (A[employer]). RADIATION OPTIMIZATION: All CT scans at this facility use at least one of these dose optimization te chniques: automated exposure control; mA and/or kV adjustment per patient size (includes targeted exa ms where dose is matched to clinical indication); or iterative reconstruction.
--- NOTE | 2020-08-07 13:39 | DI.RAD_ITS ---
EXAM: XR CHEST 1V IN DI DEPT CLINICAL HISTORY: weakness. TECHNIQUE: 2D digital imaging was performed. COMPARISON: No exams were available for comparison FINDINGS: Heart size is upper normal. The mediastinum is not widened. Lungs are clear. No infiltrates nor obvious pleural effusions. IMPRESSION: No acute pulmonary findings on this single AP portable view of the chest. DATA REPOSITORY: RADIATION DOSE DELIVERED:
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
--- NOTE | 2020-08-07 13:39 | DI.CT_ITS ---
EXAM: CT THORACIC LUMBAR SPINE WO CLINICAL HISTORY: pain after fall. TECHNIQUE: Imaging Protocol: Axial computed tomography images with coronal and sagittal reformatted images were created and reviewed. CONTRAST MATERIAL: No IV contrast Oral: None COMPARISON: No exams were available for comparison FINDINGS: Bones: No acute fractures nor listhesis. Schmorl's node invagination superior endplate of T5 noted. The alignment of the spine is normal including the cervicothoracic junction. Soft tissues: No obvious disc herniations. No prominent central canal stenosis.. No obvious foramin al stenosis. Other: Incidentally noted is an area of focal nodular pleural thickening over the posterior aspect of the right lower lobe which will require follow-up. IMPRESSION: No significant findings on the CT scan of the lumbosacral spine. Slight indentation of superior endplate of T5 and Schmorl's node invagination at this level, age inde terminate. Correlation with site of tenderness recommended. Abnormal pleural thickening over the posterior aspect of the partially included right lung. This katlyn l require appropriate follow-up. RADIATION DOSE DELIVERED: 1,278.28mGy.cm Total DLP DATA REPOSITORY: All CT scans at this facility are submitted to the National Radiology Data Registry (NRDR) Dose Index Registry (DIR) with the [employer] ([employer]). RADIATION OPTIMIZATION: All CT scans at this facility use at least one of these dose optimization te chniques: automated exposure control; mA and/or kV adjustment per patient size (includes targeted exa ms where dose is matched to clinical indication); or iterative reconstruction.
[2020-08-07 13:51] LABS: Abs Immature Grans 0.05 10^3/uL (0.0-0.06); Absolute Basophil Count 0.03 10^3/uL (0.0-0.2); Absolute Neutrophil Count 11.55 10^3/uL (1.2-6.7); Basophils % 0.2; Eosinophils % 0.8; HCT 29.9 % (36.0-46.0); HGB 9.3 g/dL (11.2-15.7); Immature Grans % 0.4; Lymphocytes % 6.4; MCH 28.5 pg (27.0-33.0); MCHC 31.1 % (32.0-36.0); MCV 91.7 fL (80-95); MPV 9.4 fL (8.0-11.0); Monocytes % 3.8; Neutrophils % 88.4; Nucleated RBC 0 %; Platelet Count 293 10^3/uL (130-400); RBC 3.26 10^6/uL (3.93-5.22); RDW 13.9 % (11.7-14.6); RDW-SD 46.6 fL; WBC 13.06 10^3/uL (4.4-10.8)
[2020-08-07 13:54] LABS: Absolute Lymphocyte Count 0.84 10^3/uL (1.2-3.4)
[2020-08-07 14:07] LABS: Anion Gap 9.4 mmol/L (3-11); BUN 29 mg/dL (7-18); CO2 24.6 mmol/L (21.0-32.0); CREATININE 2.3 mg/dL (0.55-1.02); Chloride 105 mmol/L (98-107); Estimated GFR 21.15 (mL/min/1.73m2); Glucose 145 mg/dL (74-106); Sodium 139 mmol/L (136-145)
[2020-08-07 14:13] LABS: Potassium 6.1 mmol/L (3.5-5.1); Troponin I < 0.05 ng/mL (<0.06)
[2020-08-07] MEDS: Lactated Ringers 1,000 ML 1000 ML IV (14:22)
--- NOTE | 2020-08-07 15:53 | DI.VRAD_ITS ---
PROCEDURE INFORMATION: Exam: XR Chest, 1 View Exam date and time: 08/07/2020 3:36 PM Age: 65 years old Clinical indication: Other: Weakness TECHNIQUE: Imaging protocol: XR of the chest Views: 1 view. COMPARISON: No relevant prior studies available. FINDINGS: Lungs: Unremarkable. No consolidation. Pleural spaces: Unremarkable. No pleural effusion. No pneumothorax. Heart/Mediastinum: Unremarkable. No cardiomegaly. Vasculature: The aorta demonstrates mild atherosclerotic calcification. Bones/joints: Unremarkable. IMPRESSION: No evidence of acute cardiopulmonary disease. Dictated and Authenticated by: Clint Tan MD. Ordering:RADHA Newton MD
--- NOTE | 2020-08-07 15:58 | DI.VRAD_ITS ---
PROCEDURE INFORMATION: Exam: CT Head Without Contrast Exam date and time: 08/07/2020 1:43 PM Age: 65 years old Clinical indication: Injury or trauma; Abrasion; Other: Pain after fall; Sprain or strain, cervical ligaments TECHNIQUE: Imaging protocol: Computed tomography of the head without contrast. COMPARISON: No relevant prior studies available. FINDINGS: Brain: No intracranial hemorrhage. Chronic appearing bilateral periventricular white matter changes. [place] infarct left caudate nucleus. No extra-axial fluid collection. Diffuse brain atrophy. Cerebral ventricles: No ventriculomegaly. Bones/joints: Unremarkable. No acute fracture. Paranasal sinuses: Right maxillary and bilateral ethmoid sinus mucosal thickening. Mastoid air cells: Visualized mastoid air cells are well aerated. Vasculature: Aneurysm coils present right of midline near the origin of the right middle cerebral artery. Soft tissues: Unremarkable. IMPRESSION: 1. No acute findings. 2. Sinus disease. 3. Aneurysm coils present right of midline near the right middle cerebral artery. PROCEDURE INFORMATION: Exam: CT Cervical Spine Without Contrast Exam date and time: 08/07/2020 1:43 PM Age: 65 years old Clinical indication: Injury or trauma; Abrasion; Other: Pain after fall; Sprain or strain, cervical ligaments TECHNIQUE: Imaging protocol: Computed tomography images of the cervical spine without contrast. COMPARISON: No relevant prior studies available. FINDINGS: Vertebrae: No acute fracture. Normal alignment. C2-C3: No significant disc protrusion. No severe spinal canal stenosis. No significant neural foraminal narrowing. C3-C4: No significant disc protrusion. No severe spinal canal stenosis. No significant neural foraminal narrowing. C4-C5: No significant disc protrusion. No severe spinal canal stenosis. No significant neural foraminal narrowing. C5-C6: No significant disc protrusion. No severe spinal canal stenosis. No significant neural foraminal narrowing. C6-C7: No significant disc protrusion. No severe spinal canal stenosis. No significant neural foraminal narrowing. C7-T1: No significant disc protrusion. No severe spinal canal stenosis. No significant neural foraminal narrowing. Soft tissues: Unremarkable. Lungs: Lung apices are normal. IMPRESSION: No acute findings. Dictated and Authenticated by: Clint Hope MD. Ordering:RADHA Newton MD
--- NOTE | 2020-08-07 16:00 | RT.EKG_ITS ---
APPROVED REPORT Exam: Resting ECG Patient Location: E HR:91 bpm ECG Measurements Heart Rate 91 AXIS WV 201 P 66 QRSd 72 QRS 13 QT 311 T 55 QTc 383 Conclusion Sinus rhythm...normal P axis, V-rate 60- 99 Low voltage, extremity and precordial leads...extremity<0.5mV, precordial<1.0mV
--- NOTE | 2020-08-07 16:06 | DI.VRAD_ITS ---
PROCEDURE INFORMATION: Exam: CT Thoracic Spine Without Contrast Exam date and time: 08/07/2020 1:45 PM Age: 65 years old Clinical indication: Other: Pain after fall TECHNIQUE: Imaging protocol: Computed tomography images of the thoracic spine without contrast. COMPARISON: No relevant prior studies available. FINDINGS: Thoracic Vertebrae: No acute fracture. Normal alignment. Diffuse osteopenia. Discs/Spinal canal/Neural foramina: Minimal spondylosis. No significant disc protrusion. No severe spinal canal stenosis. No significant neural foraminal narrowing. Soft tissues: Unremarkable. IMPRESSION: Diffuse osteopenia. Minimal spondylosis. No acute fracture. PROCEDURE INFORMATION: Exam: CT Lumbar Spine Without Contrast Exam date and time: 08/07/2020 1:45 PM Age: 65 years old Clinical indication: Other: Pain after fall TECHNIQUE: Imaging protocol: Computed tomography images of the lumbar spine without contrast. COMPARISON: No relevant prior studies available. FINDINGS: Lumbar Vertebrae: No acute fracture. Normal alignment. Diffuse osteopenia. Discs/Spinal canal/Neural foramina: No significant disc protrusion. No severe spinal canal stenosis. No significant neural foraminal narrowing. The aorta demonstrates mild atherosclerotic calcification. Soft tissues: Unremarkable. IMPRESSION: Diffuse osteopenia. No acute abnormality. Dictated and Authenticated by: Clint Tan MD. Ordering:RADHA Newton MD
[2020-08-07 16:08] LABS: Anion Gap 11.2 mmol/L (3-11); BUN 27 mg/dL (7-18); CO2 21.8 mmol/L (21.0-32.0); CREATININE 2.1 mg/dL (0.55-1.02); Calcium 11.3 mg/dL (8.5-10.1); Chloride 106 mmol/L (98-107); Estimated GFR 23.49 (mL/min/1.73m2); Glucose 92 mg/dL (74-106); Potassium 5.7 mmol/L (3.5-5.1); Sodium 139 mmol/L (136-145)
[2020-08-07 18:50] LABS: Anion Gap 10.5 mmol/L (3-11); BUN 26 mg/dL (7-18); CO2 21.5 mmol/L (21.0-32.0); Calcium 10.2 mg/dL (8.5-10.1); Chloride 109 mmol/L (98-107); Estimated GFR 24.85 (mL/min/1.73m2); Glucose 146 mg/dL (74-106); Potassium 5.2 mmol/L (3.5-5.1); Sodium 141 mmol/L (136-145)
[2020-08-07 18:59] LABS: Bilirubin Negative (Negative); Blood Moderate (Negative); Clarity Cloudy (Clear); Glucose Negative (Negative); Ketones Negative (Negative); Leukocyte Esterase Moderate (Negative); Nitrite Positive (Negative); Urobilinogen 0.2 EU/dL (Up TO 0.2); pH 5.5 (5-8)
[2020-08-07] MEDS: Normal Saline 1,000 ML 1000 ML IV (19:01)
[2020-08-07 19:07] LABS: WBC >50 HPF (0-5)
[2020-08-07 19:08] LABS: Bacteria Packed HPF (Negative); C & S Indicated? Yes; Epithelial Cells Many HPF (Negative)
[2020-08-07] MEDS: Cephalexin 500 MG CAP PO (19:19)
== END 2020-08-07 19:55 | disposition home or self-care (01) ==
PROVIDERS: Physician Assistant Medical; Emergency Provider Physician Assistant; PCP Nurse Practitioner Family
DX: N39.0 Urinary tract infection, site not specified (principal); M54.2 Cervicalgia; M54.5 Low back pain; W01.198A Fall on same level from slipping, tripping and stumbling with subsequent striking against other object, initial encounter; E87.5 Hyperkalemia; J44.9 Chronic obstructive pulmonary disease, unspecified; F17.210 Nicotine dependence, cigarettes, uncomplicated; E11.9 Type 2 diabetes mellitus without complications
CPT/HCPCS: 80048; 87077; 93005; 96360; 99284; 70450; 71045; 72125; 72128; 72131; 81003; 81015; 84484; 85025; 87086; 87186; 93010

== ENCOUNTER 2020-08-17 02:31 | Outpatient (CLI) | payer MEDICARE, MEDICAID, SELFPAY ==
[2020-08-17 10:58] LABS: Abs Immature Grans 0.02 10^3/uL (0.0-0.06); Absolute Basophil Count 0.08 10^3/uL (0.0-0.2); Absolute Eosinophil Count 0.21 10^3/uL (0.0-0.7); Absolute Lymphocyte Count 1.88 10^3/uL (1.2-3.4); Absolute Monocyte Count 0.49 10^3/uL (0.1-0.8); Absolute Neutrophil Count 7.01 10^3/uL (1.2-6.7); Basophils % 0.8; Eosinophils % 2.2; HCT 32.8 % (36.0-46.0); HGB 10.4 g/dL (11.2-15.7); Immature Grans % 0.2; Lymphocytes % 19.4; MCH 28.8 pg (27.0-33.0); MCHC 31.7 % (32.0-36.0); MCV 90.9 fL (80-95); Monocytes % 5.1; Neutrophils % 72.3; Nucleated RBC 0 %; Platelet Count 272 10^3/uL (130-400); RBC 3.61 10^6/uL (3.93-5.22); RDW 13.5 % (11.7-14.6); WBC 9.69 10^3/uL (4.4-10.8)
[2020-08-17 12:10] LABS: Hemoglobin A1C 7.4 % (<5.7)
[2020-08-17 12:16] LABS: Anion Gap 11.3 mmol/L (3-11); BUN 28 mg/dL (7-18); CO2 23.7 mmol/L (21.0-32.0); CREATININE 1.8 mg/dL (0.55-1.02); Calcium 10.8 mg/dL (8.5-10.1); Chloride 100 mmol/L (98-107); Estimated GFR 28.07 (mL/min/1.73m2); Glucose 113 mg/dL (74-106); Potassium 5.7 mmol/L (3.5-5.1); Sodium 135 mmol/L (136-145)
== END 2020-08-17 02:32 | disposition home or self-care (01) ==
LOC: LBO 02:31
PROVIDERS: Psychiatry & Neurology Psychiatry; PCP Nurse Practitioner Family; Visit Provider Nurse Practitioner Family
DX: E11.9 Type 2 diabetes mellitus without complications (principal); I10 Essential (primary) hypertension; F20.9 Schizophrenia, unspecified; Z79.899 Other long term (current) drug therapy
CPT/HCPCS: 36415; 80048; 83036; 85025

== ENCOUNTER 2020-08-22 19:29 | Inpatient (IN) | payer MEDICARE, MEDICAID, SELFPAY ==
[2020-08-22 19:39] VITALS: BP 104/72; PULSE 114; RESP 16; TEMP 36.6; O2SAT 96
[2020-08-22 19:50] LABS: Bilirubin Negative (Negative); Blood Small (Negative); Clarity Cloudy (Clear); Glucose Negative (Negative); Ketones Negative (Negative); Leukocyte Esterase Large (Negative); Nitrite Negative (Negative); Urobilinogen 0.2 EU/dL (Up TO 0.2); pH 5.5 (5-8)
--- NOTE | 2020-08-22 19:51 | ED.GENADUL_ITS ---
Discharge Plan Disposition [facility] Condition: Stable Discharge Details Clinical Impression: Kidney failure, UTI (urinary tract infection) Primary Care Provider: Tosin Lundberg ED Provider: Althea Hernandes Home Meds and New Rx's Prescriptions: No Action aspirin 81 mg tablet 81 mg PO DAILY RF: 0 calcium carbonate-vitamin D3 400-133.3 mg-unit tablet 1 tab PO DAILY RF: 0 lisinopril 2.5 mg tablet 2.5 mg PO DAILY RF: 0 alendronate 70 mg tablet 70 mg PO QWEEK RF: 0 gabapentin 100 mg capsule 200 mg PO .COMPLEX Qty: 180 RF: 3 clonazepam 0.5 mg tablet 0.25 mg PO BID RF: 0 clozapine 100 mg tablet 200 mg PO QHS RF: 0 simvastatin 20 mg Tablet 20 mg PO ONCE RF: 0 citalopram 20 mg Tablet 20 mg PO ONCE RF: 0 latanoprost 0.005 % Drops 1 drp .QHS RF: 0 acetaminophen 500 mg Tablet 1,000 mg PO BID PRNRF: 0 nicotine [Nicoderm CQ] 7 mg/24 hr Patch 24 Hour 2 mg transdermal Q24H RF: 0 nystatin 100,000 unit/gram Powder 1 applic TOPICAL PRN PRNRF: 0 polyethylene glycol 3350 [Miralax] 17 gram/dose Powder 17 g PO DAILY RF: 0 melatonin 3 mg Tablet 3 mg PO HS RF: 0 Medical Decision Making 65 year old female presents to the ED with increased weakness, vomiting, f requent falls, urinary incontinence and decreased PO intake. She was recently seen here in ED on Aug 07, 2020 and diagnosed with UTI and renal insufficiency patient was placed on 5 days of Keflex which she completed. Patient at that time refused admission. Patient is a poor historian and the majority of history was obtained by facility staff Vanesa and old records. Patient has a past medical history of migraine, acute kidney injury, diabetes mellitus, COPD, depression, glaucoma, hypertension, hyperlipidemia, intracranial aneurysm with status post coil embolization of the aneurysm. She is a current smoker. 2015: Spoke with Vanesa who is staff at [facility], she states patient fell at midnight last night, vomited x 2 today, increased generalized weakness, confusion, decreased appetite, and just not herself. Initial labs show leukocytosis with a white blood cell count of 12.89, RBC 3.29, hemoglobin 9.2, hematocrit 28.1, absolute neutrophils 10.4, sodium 132, potassium 5.4, anion gap 11.2, BUN is 59, creatinine is 3.1. GFR is 14.99. Albumin is 2.9 5 days ago potassium levels 5.7, BUN is 28, creatinine was 1.8 Urine shows small blood, moderate protein, large leukocytes 3-5 RBCs and greater than 50 WBCs. Culture is pending at this time. CT abdomen pelvis without contrast ordered due to abdominal pain and vomiting, blood cultures x2 ordered. Initial antibiotics ordered levofloxacin 500 mg IV piggyback. I did discuss admission with patient who verbalizes understanding and is willing to be admitted at this time. At this time I am concerned for worsening renal function and increasing potassium. VRAD reading CT Abd Pelvis W/O Comparison: CT ABDOMEN PELVIS W 12/17/2018 10:33 AM FINDINGS: Liver: Normal. No mass. Gallbladder and bile ducts: Gallbladder contracted. Pancreas: Normal. No ductal dilation. Spleen: Normal. No splenomegaly. Adrenal glands: Normal. No mass. Kidneys and ureters: There is mild bilateral perinephric edema not appreciated on prior exam. There is mild caliectasis without significant hydroureter. Stomach and bowel: Fairly significant fecal retention pattern noted. Appendix: No evidence of appendicitis. Intraperitoneal space: Unremarkable. No free air. No significant fluid collection. Vasculature: Moderate atherosclerotic change present in the vasculature. Lymph nodes: Unremarkable. No enlarged lymph nodes. Urinary bladder: The bladder is not well distended. Previously noted anterior wall thickening is again appreciated right worse than left, unchanged in degree or distribution compared to prior study. Reproductive: Unremarkable as visualized. Bones/joints: Unremarkable. No acute fracture. Soft tissues: Unremarkable. IMPRESSION: 1. Possible mild obstructive renal change. Infection not excludable. No obstructing calculi seen. 2. Bladder wall thickening anteriorly, right worse than left not significantly changed allowing for the degree of distention compared to previous study. 3. Constipated pattern noted. Thank you for allowing us to participate in the care of your patient. Dictated and Authenticated by: Elizabeth Young MD [id number]: Hospitalist paged. 1870: Spoke with Dr. Zhang discussed patient case and details with him he agrees to accept patient for admission for UTI and worsening renal insufficiency. 2222: At the time of this dictation patient is hemodynamically stable, she is up to the bedside commode approximately 200 cc of urine output at this time. Awaiting bed placement. HPI General Mode of arrival: wheelchair . Date/Time Provider Initiated Documentation: 08/22/20 19:29 . Information obtained by: patient and RN/MD . HPI Narrative: 65 year old female presents to the ED with increased weakness, vomiting, frequent falls, urinary incontinence and decreased PO intake. She was recently seen here in ED on Aug 07, 2020 and diagnosed with UTI and renal insufficiency patient was placed on 5 days of Keflex which she completed. Patient at that time refused admission. Patient is a poor historian and the majority of history was obtained by facility staff Vanesa and old records. Patient has a past medical history of migraine, acute kidney injury, diabetes mellitus, COPD, depression, glaucoma, hypertension, hyperlipidemia, intracranial aneurysm with status post coil embolization of the aneurysm. She is a current smoker. Related Data Home Medications Medication Instructions Recorded Confirmed latanoprost 1 drp .QHS 12/17/18 08/22/20 aspirin 81 mg tablet 81 mg PO DAILY 07/14/19 08/22/20 clonazepam 0.5 mg tablet 0.25 mg PO BID tab 07/14/19 08/22/20 clozapine 100 mg tablet 200 mg PO QHS tab 07/14/19 08/22/20 acetaminophen 1,000 mg PO BID PRN 08/28/19 08/22/20 nicotine [Nicoderm CQ] 2 mg TRANSDERMAL Q24H 08/28/19 08/22/20 nystatin 1 applic TOPICAL PRN PRN 08/28/19 08/22/20 polyethylene glycol 3350 [Miralax] 17 g PO DAILY 08/28/19 08/22/20 melatonin 3 mg PO HS 08/30/19 08/22/20 alendronate 70 mg tablet 70 mg PO QWEEK 06/08/20 08/22/20 calcium carbonate-vitamin D3 400 1 tab PO DAILY tab 06/08/20 08/22/20 mg -133.3 unit tablet lisinopril 2.5 mg tablet 2.5 mg PO DAILY 06/08/20 08/22/20 gabapentin 100 mg capsule 200 mg PO .COMPLEX #180 cap 06/09/20 08/22/20 citalopram 20 mg PO ONCE 08/07/20 08/22/20 simvastatin 20 mg PO ONCE 08/07/20 08/22/20 Previous Rx's Medication Instructions Recorded gabapentin 100 mg capsule 200 mg PO .COMPLEX #180 cap 06/09/20 Allergies Allergy/AdvReac Type Severity Reaction Status Date / Time fluphenazine enanthate AdvReac Severe almost Verified 08/22/20 21:36 [From Prolixin] last time they gave it to me fluphenazine HCl AdvReac Severe almost Verified 08/22/20 21:36 [From Prolixin] last time they gave it to me haloperidol [From Haldol] AdvReac Mild doesn't Verified 08/22/20 21:36 agree with me haloperidol lactate AdvReac Mild doesn't Verified 08/22/20 21:36 [From Haldol] agree with me chlorpromazine HCl AdvReac Unknown per pt Verified 08/22/20 21:36 [From Thorazine] list from [facility] [place] codeine AdvReac Unknown pt list Verified 08/22/20 21:36 from [facility] ibuprofen AdvReac Unknown per pt Verified 08/22/20 21:36 list from [facility] [place] nicotine AdvReac Unknown per pt Verified 08/22/20 21:36 loist from [facility] [place] paliperidone [From Invega] AdvReac Unknown per pt Verified 08/22/20 21:36 list from [facility] [place] Penicillins AdvReac Unknown per pt Verified 08/22/20 21:36 list from [facility] [place] Sulfa (Sulfonamide AdvReac Unknown per pt Verified 08/22/20 21:36 Antibiotics) list from [facility] [place] General Stated Complaint: GenMedical ALEX: 3 Review of Systems Narrative: Patient is a poor historian, All systems reviewed & are unremarkable except as noted in HPI and below Constitutional Constitutional: Reports frequent falls, Reports lethargy, Reports poor appetite and Reports weakness Cardiovascular Cardiovascular: Denies dyspnea Respiratory Respiratory: Reports cough, Denies hemoptysis, Denies dyspnea and Denies stridor Gastrointestinal Gastrointestinal: Reports abdominal pain, Reports loose stools and Reports vomiting (x 2) Genitourinary Genitourinary: Reports hematuria, Reports dysuria, Reports urinary incontinence and Reports urinary hesitancy Musculoskeletal Musculoskeletal: Reports other (Generalized muscle weakness) Neurologic Neurologic: Reports frequent falls and Reports weakness [facility] Medical History (Updated 08/22/20 @ 21:58 by Randell Zhang) Auditory hallucinations Back pain Calcium kidney stone Chronic constipation COPD (chronic obstructive pulmonary disease) Depressive disorder Diabetes mellitus Fatigue Fracture of orbital floor, left side, sequela GERD (gastroesophageal reflux disease) Glaucoma Headache Hip pain, bilateral Hyperlipidemia Hypertension Insomnia Intracranial aneurysm Knee pain, bilateral Low back pain Lumbar back pain Migraine headache with aura Migraine headache without aura Osteoarthritis Overweight Paranoid schizophrenia Polyarthralgia Tobacco use disorder Umbilical hernia without mention of obstruction or gangrene Urinary frequency Vitamin D deficiency Surgical History History of bilateral tubal ligation Status post coil embolization of cerebral aneurysm Family History Father Colon cancer Renal cancer Sister Breast cancer Mother Abdominal aortic aneurysm Brother Psychiatric illness Social History Smoking/Tobacco Use Status: Current every day Tobacco Type: cigarettes Smoking risk assessment performed?: Yes Alcohol Intake: former Drug use: Current Sobriety Substance use type: does not use Do you feel safe at home: Yes Do you feel safe in your relationship?: Yes Exam Narrative Exam Narrative: Constitutional: Alert. Appears stated age. Normal body habitus. Confused. Poor historian. Head: Normocephalic, no trauma. Eyes: Pupils PERRLA, Red reflex noted, EOM's intact. Eyelids symmetrical without lesions, discharge, or swelling. ENT: Bilateral TM's WNL, External ear normal to inspection, no mastoid TTP, swelling, or erythema, Nasal turbinates WNL, no nasal discharge. Normal dentition, Posterior pharynx WNL, no exudate. Chest: RRR, mildly tachycardic initially, normal S1, S2, distal pulses intact. Resp: Lungs clear to auscultation bilaterally, no wheezes, rales, or rhonchi. Abdomen: Soft, generalized tenderness with palpation. Genitourinary: Patient was able to urinate upon arrival small amount of cloudy urine noted. Musculoskeletal: Unable to assess gait, generalized weakness. Skin: No suspicious rashes or lesions. Capillary refill less than 2 sec. Neurologic: Cranial nerves II-XII intact. Alert and oriented x 3. No focal neuro deficits noted no facial droop, cushion mat maker equal bilaterally upper extremities. Intact dorsiflexion and pedal flexion lower extremities. Hematologic/Lymphatic: No ecchymosis, no lymphadenopathy. Course Vital Signs Vital signs: Vital Signs Temperature 36.6 C 08/22/20 19:39 Pulse 114 H 08/22/20 19:39 Respiratory Rate 16 08/22/20 19:39 Blood Pressure 104/72 08/22/20 19:39 Pulse Oximetry 96 08/22/20 19:39 Temperature 36.6 C 08/22/20 19:39 Temperature Source Skin 08/22/20 19:39 Pulse 114 H 08/22/20 19:39 Respiratory Rate 16 08/22/20 19:39 Respiratory Effort 08/22/20 19:43 Blood Pressure 104/72 08/22/20 19:39 Blood Pressure Position Sitting 08/22/20 19:39 Pulse Oximetry 96 08/22/20 19:39 Oxygen Delivery Method Room Air 08/22/20 19:39 Oxygen Flow Rate 0 08/22/20 19:39 Lab/Test Results Lab/Test Results: Laboratory Tests Range/Units 08/22/20 19:45 Urine Color (Yellow) Yellow Urine Clarity (Clear) Cloudy Urine pH (5-8) 5.5 Ur Specific [place] (1.005-1.025) 1.020 Urine Protein (Negative) mg/dL 100 H Urine Ketones (Negative) mg/dL Negative Urine Blood (Negative) Small H Urine Nitrite (Negative) Negative Urine Bilirubin (Negative) Negative Urine Urobilinogen (Up TO 0.2) EU/dL 0.2 Ur Leukocyte Esterase (Negative) Large H Urine Glucose (Negative) mg/dL Negative
[2020-08-22 19:59] LABS: Abs Immature Grans 0.06 10^3/uL (0.0-0.06); Absolute Basophil Count 0.03 10^3/uL (0.0-0.2); Absolute Eosinophil Count 0.04 10^3/uL (0.0-0.7); Absolute Lymphocyte Count 0.89 10^3/uL (1.2-3.4); Absolute Monocyte Count 1.03 10^3/uL (0.1-0.8); Absolute Neutrophil Count 10.84 10^3/uL (1.2-6.7); Basophils % 0.2; Eosinophils % 0.3; HCT 28.1 % (36.0-46.0); HGB 9.2 g/dL (11.2-15.7); Immature Grans % 0.5; Lymphocytes % 6.9; MCH 28.7 pg (27.0-33.0); MCHC 32.7 % (32.0-36.0); MCV 87.5 fL (80-95); MPV 10.2 fL (8.0-11.0); Neutrophils % 84.1; Nucleated RBC 0 %; Platelet Count 244 10^3/uL (130-400); RBC 3.21 10^6/uL (3.93-5.22); RDW 13.9 % (11.7-14.6); RDW-SD 44.8 fL; WBC 12.89 10^3/uL (4.4-10.8)
[2020-08-22 20:00] LABS: Bacteria Many HPF (Negative); C & S Indicated? Yes; Casts Negative LPF (Negative); Crystals Negative HPF (Negative); Epithelial Cells Few HPF (Negative); Mucus Trace (Negative); WBC >50 HPF (0-5)
[2020-08-22] MEDS: Normal Saline 250 ML IV (20:09)
[2020-08-22 20:12] LABS: ALT 22 U/L (14-59); AST 25 U/L (15-37); Albumin 2.9 g/dL (3.4-5.0); Alkaline Phosphatase 103 U/L (46-116); Anion Gap 11.2 mmol/L (3-11); BUN 59 mg/dL (7-18); Bilirubin, Total 0.5 mg/dL (0.2-1.0); CO2 21.8 mmol/L (21.0-32.0); CREATININE 3.1 mg/dL (0.55-1.02); Chloride 99 mmol/L (98-107); Estimated GFR 14.99 (mL/min/1.73m2); Glucose 195 mg/dL (74-106); Magnesium 1.9 mg/dL (1.8-2.4); Potassium 5.4 mmol/L (3.5-5.1); Sodium 132 mmol/L (136-145); Total Protein 7.8 g/dL (6.4-8.2)
[2020-08-22 20:13] VITALS: PULSE 94
--- NOTE | 2020-08-22 20:15 | DI.CT_ITS ---
EXAM: CT ABDOMEN PELVIS WO CLINICAL HISTORY: Abdominal pain,. TECHNIQUE: Imaging Protocol: Axial computed tomography images with coronal and sagittal reformatted images were created and reviewed. COMPARISON: No exams were available for comparison FINDINGS: ABDOMEN: Lung Bases: Normal where visualized. Liver: Normal density. No measurable mass. Gallbladder and biliary tract: No radiodense calculus or biliary ductal dilation. Pancreas: There is diffuse fatty atrophy of the pancreas. No peripancreatic inflammatory changes or fluid collections are seen. Spleen: Normal. Kidneys: There is again seen scarring of the right kidney.No radiodense stones or obstructive uropath y. There is a stable cyst in the left kidney. There is mild bilateral perinephric edema. Adrenal glands: No mass is seen. Lymph nodes: Within normal limits. Abdominal Aorta: Abdominal portion non-dilated. Atherosclerosis. PELVIS: Bladder:Mild thickening of the wall of the urinary bladder is seen. This may be due to underdistenti on. An inflammatory infectious cystitis cannot be excluded. Please correlate clinically. Bowel: No obstruction or bowel wall thickening. No evidence of acute appendicitis. There is a large amount of stool throughout the colon suggesting constipation. Peritoneal cavity: No ascites, collection or mesenteric inflammatory response. No free air. Reproductive organs: The patient appears to be status post hysterectomy. Bones: Within normal limits. Soft Tissues: There is unchanged scarring in the soft tissues adjacent to the right gluteal muscle. IMPRESSION: 1. Mild bilateral perinephric edema. No evidence of stone or obstruction. Infection cannot be exclu ded. Please correlate clinically. 2. Stable mild thickening of the wall of the urinary bladder. 3. Constipation. RADIATION DOSE DELIVERED: 816.71mGy.cm Total DLP DATA REPOSITORY: All CT scans at this facility are submitted to the National Radiology Data Registry (NRDR) Dose Index Registry (DIR) with the [employer] (A[employer]). RADIATION OPTIMIZATION: All CT scans at this facility use at least one of these dose optimization te chniques: automated exposure control; mA and/or kV adjustment per patient size (includes targeted exa ms where dose is matched to clinical indication); or iterative reconstruction.
--- NOTE | 2020-08-22 20:38 | NUR.NOTE ---
Nursing Note: 1st blood cultures obtained. lab requested to obtain 2nd.
[2020-08-22] MEDS: levoFLOXacin 500 MG/100 ML BAG 100 MG IVPB (21:10)
--- NOTE | 2020-08-22 21:38 | DI.VRAD_ITS ---
PROCEDURE INFORMATION: Exam: CT Abdomen And Pelvis Without Contrast Exam date and time: 08/22/2020 9:22 PM Age: 65 years old Clinical indication: Abdominal pain; Generalized; Prior surgery; Surgery date: 6+ months; Surgery type: Tubal ligation TECHNIQUE: Imaging protocol: Computed tomography of the abdomen and pelvis without contrast. Radiation optimization: All CT scans at this facility use at least one of these dose optimization techniques: automated exposure control; mA and/or kV adjustment per patient size (includes targeted exams where dose is matched to clinical indication); or iterative reconstruction. COMPARISON: CT ABDOMEN PELVIS W 12/17/2018 10:33 AM FINDINGS: Liver: Normal. No mass. Gallbladder and bile ducts: Gallbladder contracted. Pancreas: Normal. No ductal dilation. Spleen: Normal. No splenomegaly. Adrenal glands: Normal. No mass. Kidneys and ureters: There is mild bilateral perinephric edema not appreciated on prior exam. There is mild caliectasis without significant hydroureter. Stomach and bowel: Fairly significant fecal retention pattern noted. Appendix: No evidence of appendicitis. Intraperitoneal space: Unremarkable. No free air. No significant fluid collection. Vasculature: Moderate atherosclerotic change present in the vasculature. Lymph nodes: Unremarkable. No enlarged lymph nodes. Urinary bladder: The bladder is not well distended. Previously noted anterior wall thickening is again appreciated right worse than left, unchanged in degree or distribution compared to prior study. Reproductive: Unremarkable as visualized. Bones/joints: Unremarkable. No acute fracture. Soft tissues: Unremarkable. IMPRESSION: 1. Possible mild obstructive renal change. Infection not excludable. No obstructing calculi seen. 2. Bladder wall thickening anteriorly, right worse than left not significantly changed allowing for the degree of distention compared to previous study. 3. Constipated pattern noted. Dictated and Authenticated by: Elizabeth Young MD. Ordering:NINA Oh MD
[2020-08-22 21:40] LABS: Source Nasal/Nares
--- NOTE | 2020-08-22 21:53 | W.PM.HP.N ---
Date of service: 08/22/20 Time of Service: 21:54 Assessment and Plan Assessment and plan (1) HIPOLITO (acute kidney injury): Start date: 08/22/20 Status: Acute Assessment and plan: This is a 65-year-old lady who resides at a assisted and recently had complications of a UTI which did not respond to outpatient therapy. She is dehydrated with chronic hyperkalemia on low-dose JIM inhibitor which will be held. She will receive IV hydration and treatment of her UTI with Rocephin. She does have an abnormal CT of her renal system and bladder with urology consultation. (2) UTI (urinary tract infection): Start date: 08/22/20 Status: Acute Assessment and plan: Abnormal CT of the renal system and recurrent Klebsiella pneumonia pathogen in her urine now covered with Rocephin IV. She did have fever with chills and rigors and blood cultures were done upon admission. Follow-up blood cultures and urine cultures with urology consultation as discussed under acute kidney injury. Qualifiers: Urinary tract infection type: acute pyelonephritis Qualified Code(s): N10 - Acute pyelonephritis (3) Obstructive uropathy: Start date: 08/22/20 Status: Acute Assessment and plan: Abnormal CT with follow-up urology consultation as mentioned. History of Present Illness History of Present Illness Chief Complaint: Failed outpatient UTI treatment with returning symptoms Narrative: This is a 65-year-old female patient who resides at a assisted with chronic psychiatric disease which has been stable. She has had Klebsiella positive urine cultures with UTI in the summer 2019 and more recently in early July she was seen in the ED for a UTI which grew Klebsiella sensitive to cephalosporins and treated with Keflex for 5 days. She has completed her 5-day treatment more than a week ago and returns with increasing symptoms of generalized weakness, urinary incontinence with frequent falls and vomiting with decreased intake and previous acute kidney injury when seen August 07, 2020. Patient was seen in the ED and this time did agree to stay for treatment of her acute symptoms and was given 1 dose of Levaquin which will be switched to Rocephin because of possible side effects with her psychiatric meds. Her Klebsiella pneumonia pathogen in her urine previously with the last 2 urine cultures were sensitive to Rocephin. She does have abdominal discomfort and CT scan imaging of the renal system and bladder were abnormal with urology consultation in place. The patient was previously well and functioning at the supervised living facility prior to this recent onset of UTI symptoms in July 2020. Review of Systems Narrative: 13 point review of systems otherwise unrevealing or stable. [facility] Medical History (Updated 08/22/20 @ 21:58 by Randell Zhang) Auditory hallucinations Back pain Calcium kidney stone Chronic constipation COPD (chronic obstructive pulmonary disease) Depressive disorder Diabetes mellitus Fatigue Fracture of orbital floor, left side, sequela GERD (gastroesophageal reflux disease) Glaucoma Headache Hip pain, bilateral Hyperlipidemia Hypertension Insomnia Intracranial aneurysm Knee pain, bilateral Low back pain Lumbar back pain Migraine headache with aura Migraine headache without aura Osteoarthritis Overweight Paranoid schizophrenia Polyarthralgia Tobacco use disorder Umbilical hernia without mention of obstruction or gangrene Urinary frequency Vitamin D deficiency Surgical History History of bilateral tubal ligation Status post coil embolization of cerebral aneurysm Family History Father Colon cancer Renal cancer Sister Breast cancer Mother Abdominal aortic aneurysm Brother Psychiatric illness Social History Smoking/Tobacco Use Status: Current every day Tobacco Type: cigarettes Smoking risk assessment performed?: Yes Alcohol Intake: former Drug use: Current Sobriety Substance use type: does not use Do you feel safe at home: Yes Do you feel safe in your relationship?: Yes Meds Home Medications and Allergies Allergies Allergy/AdvReac Type Severity Reaction Status Date / Time fluphenazine enanthate AdvReac Severe almost Verified 08/22/20 21:36 [From Prolixin] last time they gave it to me fluphenazine HCl AdvReac Severe almost Verified 08/22/20 21:36 [From Prolixin] last time they gave it to me haloperidol [From Haldol] AdvReac Mild doesn't Verified 08/22/20 21:36 agree with me haloperidol lactate AdvReac Mild doesn't Verified 08/22/20 21:36 [From Haldol] agree with me chlorpromazine HCl AdvReac Unknown per pt Verified 08/22/20 21:36 [From Thorazine] list from [facility] codeine AdvReac Unknown pt list Verified 08/22/20 21:36 from [facility] ibuprofen AdvReac Unknown per pt Verified 08/22/20 21:36 list from [facility] [place] nicotine AdvReac Unknown per pt Verified 08/22/20 21:36 loist from [facility] paliperidone [From Invega] AdvReac Unknown per pt Verified 08/22/20 21:36 list from [facility] Penicillins AdvReac Unknown per pt Verified 08/22/20 21:36 list from [facility] Sulfa (Sulfonamide AdvReac Unknown per pt Verified 08/22/20 21:36 Antibiotics) list from [facility] Home Medications Medication Instructions Recorded Confirmed Type latanoprost 1 drp .QHS 12/17/18 08/22/20 History aspirin 81 mg tablet 81 mg PO DAILY 07/14/19 08/22/20 History clonazepam 0.5 mg tablet 0.25 mg PO BID tab 07/14/19 08/22/20 History clozapine 100 mg tablet 200 mg PO QHS tab 07/14/19 08/22/20 History acetaminophen 1,000 mg PO BID PRN 08/28/19 08/22/20 History nicotine [Nicoderm CQ] 2 mg TRANSDERMAL Q24H 08/28/19 08/22/20 History nystatin 1 applic TOPICAL PRN PRN 08/28/19 08/22/20 History polyethylene glycol 3350 [Miralax] 17 g PO DAILY 08/28/19 08/22/20 History melatonin 3 mg PO HS 08/30/19 08/22/20 History alendronate 70 mg tablet 70 mg PO QWEEK 06/08/20 08/22/20 History calcium carbonate-vitamin D3 400 1 tab PO DAILY tab 06/08/20 08/22/20 History mg -133.3 unit tablet lisinopril 2.5 mg tablet 2.5 mg PO DAILY 06/08/20 08/22/20 History gabapentin 100 mg capsule 200 mg PO .COMPLEX #180 cap 06/09/20 08/22/20 Rx citalopram 20 mg PO ONCE 08/07/20 08/22/20 History simvastatin 20 mg PO ONCE 08/07/20 08/22/20 History Exam Narrative Exam Narrative: General: Patient appears appropriate for age with flattened affect but good eye contact. She is alert and oriented at least to person and place. She is in no acute distress. She is lying in bed leaning toward the left. She does appear generally weak. She has had recent rigors with fever and is covered with many blankets and sweaty. HEENT: Normocephalic, eyes with pupils equal and reactive to light symmetrically, extraocular movement intact and sclera anicteric. Oropharynx with dry oral mucosa. Neck: Supple without JVD. Back: Stooped posture without CVA tenderness. Heart: Regular rhythm with tachycardic rate with recent fever, no murmurs gallops appreciated. Breast: Exam deferred. Abdomen: Obese contour, soft with tenderness over both kidneys but no palpable masses or rebound. Slight guarding over both kidneys. No palpable hepatosplenomegaly. Bowel sounds positive in all quadrants. Genitalia/rectal: Exam deferred. Extremities: Without clubbing or cyanosis. Moderate nonpitting edema with peripheral pulses intact. All joints have fair range of motion. Skin: Normal color, warm and and moist with recent rigors and fever. Patient is diaphoretic. Neuro: Cranial nerves II through XII gross intact, no focalized motor deficits. Patient appears generally weak. Psych: Flattened affect with depressed mood, no abnormal thought processes. Remote memory intact. Recent memory questionably intact. Patient is less conversant with her acute illness and recent rigors with fever. Results Imaging Imaging Studies: Exam: CT Abdomen And Pelvis Without Contrast Exam date and time: 08/22/2020 9:22 PM Age: 65 years old Clinical indication: Abdominal pain; Generalized; Prior surgery; Surgery date: 6+ months; Surgery type: Tubal ligation TECHNIQUE: Imaging protocol: Computed tomography of the abdomen and pelvis without contrast. Radiation optimization: All CT scans at this facility use at least one of these dose optimization techniques: automated exposure control; mA and/or kV adjustment per patient size (includes targeted exams where dose is matched to clinical indication); or iterative reconstruction. COMPARISON: CT ABDOMEN PELVIS W 12/17/2018 10:33 AM FINDINGS: Liver: Normal. No mass. Gallbladder and bile ducts: Gallbladder contracted. Pancreas: Normal. No ductal dilation. Spleen: Normal. No splenomegaly. Adrenal glands: Normal. No mass. Kidneys and ureters: There is mild bilateral perinephric edema not appreciated on prior exam. There is mild caliectasis without significant hydroureter. Stomach and bowel: Fairly significant fecal retention pattern noted. Appendix: No evidence of appendicitis. Intraperitoneal space: Unremarkable. No free air. No significant fluid collection. Vasculature: Moderate atherosclerotic change present in the vasculature. Lymph nodes: Unremarkable. No enlarged lymph nodes. Urinary bladder: The bladder is not well distended. Previously noted anterior wall thickening is again appreciated right worse than left, unchanged in degree or distribution compared to prior study. Reproductive: Unremarkable as visualized. Bones/joints: Unremarkable. No acute fracture. Soft tissues: Unremarkable. IMPRESSION: 1. Possible mild obstructive renal change. Infection not excludable. No obstructing calculi seen. 2. Bladder wall thickening anteriorly, right worse than left not significantly changed allowing for the degree of distention compared to previous study. 3. Constipated pattern noted. Dictated and Authenticated by: Elizabeth Young MD. Labs Result diagrams: 08/23/20 06:10 08/23/20 06:10 Labs: Laboratory Results - last 24 hr 08/22/20 08/22/20 08/22/20 19:45 19:50 19:50 WBC 12.89 H RBC 3.21 L Hgb 9.2 L Hct 28.1 L MCV 87.5 MCH 28.7 MCHC 32.7 RDW 13.9 Plt Count 244 MPV 10.2 Immature Gran % 0.5 Neutrophils % 84.1 Lymphocytes % 6.9 Monocytes % 8.0 Eosinophils % 0.3 Basophils % 0.2 Nucleated RBC % 0 Absolute Neutrophils 10.84 H Absolute Lymphocytes 0.89 L Absolute Monocytes 1.03 H Absolute Eosinophils 0.04 Absolute Basophils 0.03 Sodium 132 L Potassium 5.4 H Chloride 99 Carbon Dioxide 21.8 Anion Gap 11.2 H BUN 59 H Creatinine 3.1 H Estimated GFR/1.73 m2 14.99 Glucose 195 H Calcium 10.0 Magnesium 1.9 Total Bilirubin 0.5 AST 25 ALT 22 Alkaline Phosphatase 103 Total Protein 7.8 Albumin 2.9 L Urine Color Yellow Urine Clarity Cloudy Urine pH 5.5 Ur Specific [place] 1.020 Urine Protein 100 H Urine Ketones Negative Urine Blood Small H Urine Nitrite Negative Urine Bilirubin Negative Urine Urobilinogen 0.2 Ur Leukocyte Esterase Large H Urine RBC 3-5 H Urine WBC >50 H Ur Epithelial Cells Few Urine Crystals Negative Urine Bacteria Many Urine Casts Negative Urine Mucus Trace Ur Culture Indicated? Yes Urine Glucose Negative COVID-19 Source 08/22/20 21:37 WBC RBC Hgb Hct MCV MCH MCHC RDW Plt Count MPV Immature Gran % Neutrophils % Lymphocytes % Monocytes % Eosinophils % Basophils % Nucleated RBC % Absolute Neutrophils Absolute Lymphocytes Absolute Monocytes Absolute Eosinophils Absolute Basophils Sodium Potassium Chloride Carbon Dioxide Anion Gap BUN Creatinine Estimated GFR/1.73 m2 Glucose Calcium Magnesium Total Bilirubin AST ALT Alkaline Phosphatase Total Protein Albumin Urine Color Urine Clarity Urine pH Ur Specific [place] Urine Protein Urine Ketones Urine Blood Urine Nitrite Urine Bilirubin Urine Urobilinogen Ur Leukocyte Esterase Urine RBC Urine WBC Ur Epithelial Cells Urine Crystals Urine Bacteria Urine Casts Urine Mucus Ur Culture Indicated? Urine Glucose COVID-19 Source Nasal/nares Last Vital Signs Temp 36.6 C 08/22/20 19:39 Pulse 94 H 08/22/20 20:13 Resp 16 08/22/20 19:39 BP 104/72 08/22/20 19:39 Pulse Ox 96 08/22/20 19:39 COVID-19 Screening Have you, or household traveled for leisure in last 14 days?: No Had IN PERSON contact w/suspected or confirmed C-19 person: No
[2020-08-22 21:55] VITALS: BP 113/58; PULSE 89; RESP 15; O2SAT 97
[2020-08-22 22:54] VITALS: PULSE 95
[2020-08-22 22:59] VITALS: BP 96/67; PULSE 96; RESP 18; TEMP 37.5; O2SAT 98
[2020-08-22] MEDS: Normal Saline Flush 10 ML SYR IVP (23:23)
[2020-08-22] MEDS: Heparin 5,000 UNITS/ML VIAL 5000 UNITS SC (23:23)
[2020-08-22] MEDS: Melatonin 3 MG TAB PO (23:24)
[2020-08-22] MEDS: cefTRIAXone 1 GM/50 ML BAG IVPB (23:25)
[2020-08-22] MEDS: Normal Saline 1,000 ML 150 ML IV (23:25)
[2020-08-22] MEDS: Gabapentin 100 MG CAP 200 MG PO (23:33)
[2020-08-22] MEDS: Latanoprost 0.005% 2.5 ML BTL OU (23:34)
[2020-08-23] VITALS (136 sets, daily range): BP systolic 63–150; BP diastolic 35–93; PULSE 75–145; RESP 12–28; TEMP 36–39.2; O2SAT 91–100
[2020-08-23] MEDS: Acetaminophen 325 MG TAB 650 MG PO ×2 (03:50→07:33)
[2020-08-23] MEDS: Normal Saline 1,000 ML 150 ML IV ×3 (05:48→22:13)
[2020-08-23] MEDS: Heparin 5,000 UNITS/ML VIAL 5000 UNITS SC (06:16)
[2020-08-23 06:47] LABS: Abs Immature Grans 0.05 10^3/uL (0.0-0.06); Absolute Basophil Count 0.01 10^3/uL (0.0-0.2); Absolute Lymphocyte Count 0.23 10^3/uL (1.2-3.4); Absolute Monocyte Count 0.63 10^3/uL (0.1-0.8); Basophils % 0.1; HCT 23.5 % (36.0-46.0); Immature Grans % 0.6; Lymphocytes % 2.6; MCH 28.5 pg (27.0-33.0); MCHC 32.8 % (32.0-36.0); MPV 10.3 fL (8.0-11.0); Monocytes % 7.2; Neutrophils % 89.5; Nucleated RBC 0 %; Platelet Count 209 10^3/uL (130-400); RDW-SD 44.4 fL
[2020-08-23 06:48] LABS: Absolute Neutrophil Count 7.79 10^3/uL (1.2-6.7)
[2020-08-23 06:57] LABS: HGB 7.7 g/dL (11.2-15.7)
[2020-08-23 06:58] LABS: Diff Comment Diff Reviewed; Hypochromasia 2+; Polychromasia Present
[2020-08-23 07:02] LABS: ALT 19 U/L (14-59); AST 20 U/L (15-37); Albumin 2.3 g/dL (3.4-5.0); Alkaline Phosphatase 88 U/L (46-116); Anion Gap 10.7 mmol/L (3-11); BUN 51 mg/dL (7-18); Bilirubin, Total 0.6 mg/dL (0.2-1.0); CO2 17.3 mmol/L (21.0-32.0); CREATININE 2.7 mg/dL (0.55-1.02); Calcium 8.6 mg/dL (8.5-10.1); Chloride 105 mmol/L (98-107); Estimated GFR 17.58 (mL/min/1.73m2); Glucose 210 mg/dL (74-106); Sodium 133 mmol/L (136-145); Total Protein 6.5 g/dL (6.4-8.2)
[2020-08-23 07:49] LABS: C-Reactive Protein 17.04 mg/dL (0.0-0.3)
[2020-08-23 07:58] LABS: Lactate 0.6 mmol/L (0.6-1.4)
[2020-08-23] MEDS: Aspirin 81 MG CHEW PO (08:02)
[2020-08-23] MEDS: clonazePAM 0.5 MG TAB 0.25 MG PO (08:02)
[2020-08-23] MEDS: Normal Saline 1,000 ML 1000 ML IV ×3 (08:03→11:20)
[2020-08-23] MEDS: cefTRIAXone 1 GM/50 ML BAG IVPB (08:03)
[2020-08-23] MEDS: Insulin Aspart 300 UNITS/3 ML PEN SC ×2 (08:14→22:12)
[2020-08-23 08:39] LABS: Procalcitonin 2.8 ng/mL
[2020-08-23] MEDS: levoFLOXacin 250 MG/50 ML BAG 50 MG IVPB (09:55)
[2020-08-23] MEDS: Citalopram 20 MG TAB PO (09:56)
[2020-08-23 10:33] LABS: Lactate 0.6 mmol/L (0.6-1.4)
[2020-08-23 10:49] LABS: Iron 11 ug/dL (50-170); Total Iron Binding Capacity 235 ug/dL (250-450); Transferrin Sat 5 % (15-50)
[2020-08-23 11:15] LABS: Ferritin 126 ng/mL (8-252); Folate 12.4 ng/mL (8.6-20.0); Vitamin B12 304 pg/mL (193-986)
--- NOTE | 2020-08-23 11:20 | W.PM.PROGNOT ---
Date of Service Date of service: 08/23/20 Time of Service: 11:20 Assessment and Plan Assessment and plan (1) Sepsis associated hypotension: Status: Acute Assessment and plan: Source: UTI present on admission. Transferred to the ICU. Continue IVF and add vasopressors (levophed). Await blood and urine culture results. Antibiotics are now high dose ceftriaxone + levofloxacin. Trend Lactate, CRP/procalcitonin. Urology is planning on cysto/stents. Anemia could also be contributing. There has not been active bleeding. We will transfuse 1 unit of pRBCs. We will also rule out DVT (patient reports leg pain; PE could cause hypotension). Obtain venous dopplers of BLEs. We are not able to do a CTA of the chest due to BUSTER. (2) Acute UTI: Status: Acute Assessment and plan: As above (3) BUSTER (acute kidney injury): Status: Acute Assessment and plan: In setting of sepsis, hypotension, obstructive uropathy. Insert quan catheter, treat infection, hydrate//provide vasopressor support. Trend Cr. Treat hyperkalemia/monitor lytes. (4) Obstructive uropathy: Status: Acute Assessment and plan: As above. Urology is planning on cysto/stent. (5) Toxic metabolic encephalopathy: Status: Acute Assessment and plan: In setting of sepsis - read above. Consider CT head - the patient had a CT in the middle of July which shows treated cerebral aneurysm, so risk of bleeding is lower. Does not report headache. (6) Hyperkalemia: Status: Acute Assessment and plan: In setting of BUSTER. Improving with IVF. Continue to montior. Repeat is 4.6. (7) Acute on chronic anemia: Status: Acute Assessment and plan: No obvious source of acute bleeding to explain this degree of anemia. Small amount of blood in urine is unlikely to explain this. I suspect a dilutional component; however, given hypotension, we are monitoring for bleeding. Obtain hemoccult. Anemia studies show B12 deficiency - replete. (8) Metabolic acidosis: Status: Acute Assessment and plan: In setting of Buster/sepsis. This is improving (bicarb is now 19.1 from 17.3). Treat infection, BUSTER. (9) Diabetes mellitus: Status: Chronic Assessment and plan: Cover with SSI while NPO. 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 Holding chemical DVT ppx until we've ruled out clinically significant bleeding. (11) Discharge planning issues: Status: Acute Assessment and plan: Full code Transfer to ICU Total Critical Care Time 60 minutes. Subjective Subjective Interval history since last seen: Came to evaluate the patient as the patient's BP was reported to be 84/50 manually with a heart rate of 77. The patient had been lethargic all morning, but arousable. Ms Westbrook states that she feels short of breath. She complains that SCDs are hurting her legs. Otherwise, she denies chest pain or nausea, and falls asleep for the rest of my questions. She was hypotensive to 92/48 at 7:24 this am and received 1 L of NS for this with BP's going up to 96/46 and mental status improving; however, now BP is lower. LA 0.6 x 2 this am. Urology is planning on taking the patient to the OR for cysto/stents. She has not had obvious bleeding today. She is being transferred to the ICU and vasopressors are being initiated. Exam Narrative Exam Narrative: General: Lethargic middle-aged female, arousable, answers some questions, but then falls asleep, looks sick HEENT: EOMI, dry MM Heart: RRR, no m/r/g Lungs: Crackles at B bases Abdomen: soft, nondistended Extremities: no edema BLE's, SCDs on Objective Last Vital Signs Temp 36 C L 08/23/20 11:18 Pulse 77 08/23/20 11:18 Resp 19 08/23/20 11:18 BP 84/50 L 08/23/20 11:18 Pulse Ox 94 08/23/20 11:18 Laboratory Results - last 24 hr 08/22/20 08/22/20 08/22/20 19:45 19:50 19:50 WBC 12.89 H RBC 3.21 L Hgb 9.2 L Hct 28.1 L MCV 87.5 MCH 28.7 MCHC 32.7 RDW 13.9 Plt Count 244 MPV 10.2 Immature Gran % 0.5 Neutrophils % 84.1 Lymphocytes % 6.9 Monocytes % 8.0 Eosinophils % 0.3 Basophils % 0.2 Nucleated RBC % 0 Absolute Neutrophils 10.84 H Absolute Lymphocytes 0.89 L Absolute Monocytes 1.03 H Absolute Eosinophils 0.04 Absolute Basophils 0.03 RBC Morphology Polychromasia Hypochromasia VBG Lactate Sodium 132 L Potassium 5.4 H Chloride 99 Carbon Dioxide 21.8 Anion Gap 11.2 H BUN 59 H Creatinine 3.1 H Estimated GFR/1.73 m2 14.99 Glucose 195 H Calcium 10.0 Magnesium 1.9 Iron TIBC Transferrin % Sat Ferritin Total Bilirubin 0.5 AST 25 ALT 22 Alkaline Phosphatase 103 C-Reactive Protein Total Protein 7.8 Albumin 2.9 L Vitamin B12 Folate Procalcitonin Urine Color Yellow Urine Clarity Cloudy Urine pH 5.5 Ur Specific [place] 1.020 Urine Protein 100 H Urine Ketones Negative Urine Blood Small H Urine Nitrite Negative Urine Bilirubin Negative Urine Urobilinogen 0.2 Ur Leukocyte Esterase Large H Urine RBC 3-5 H Urine WBC >50 H Ur Epithelial Cells Few Urine Crystals Negative Urine Bacteria Many Urine Casts Negative Urine Mucus Trace Ur Culture Indicated? Yes Urine Glucose Negative COVID-19 Source 08/22/20 08/23/20 08/23/20 21:37 06:10 06:10 WBC 8.70 D RBC 2.70 L Hgb 7.7 L Hct 23.5 L MCV 87.0 MCH 28.5 MCHC 32.8 RDW 14.0 Plt Count 209 MPV 10.3 Immature Gran % 0.6 Neutrophils % 89.5 Lymphocytes % 2.6 Monocytes % 7.2 Eosinophils % 0.0 Basophils % 0.1 Nucleated RBC % 0 Absolute Neutrophils 7.79 H Absolute Lymphocytes 0.23 L Absolute Monocytes 0.63 Absolute Eosinophils 0.00 Absolute Basophils 0.01 RBC Morphology See below Polychromasia Present Hypochromasia 2+ VBG Lactate Sodium 133 L Potassium 5.0 Chloride 105 Carbon Dioxide 17.3 L Anion Gap 10.7 BUN 51 H Creatinine 2.7 H Estimated GFR/1.73 m2 17.58 Glucose 210 H Calcium 8.6 Magnesium Iron TIBC Transferrin % Sat Ferritin Total Bilirubin 0.6 AST 20 ALT 19 Alkaline Phosphatase 88 C-Reactive Protein Total Protein 6.5 Albumin 2.3 L Vitamin B12 Folate Procalcitonin Urine Color Urine Clarity Urine pH Ur Specific [place] Urine Protein Urine Ketones Urine Blood Urine Nitrite Urine Bilirubin Urine Urobilinogen Ur Leukocyte Esterase Urine RBC Urine WBC Ur Epithelial Cells Urine Crystals Urine Bacteria Urine Casts Urine Mucus Ur Culture Indicated? Urine Glucose COVID-19 Source Nasal/nares 08/23/20 08/23/20 08/23/20 06:10 06:10 07:46 WBC RBC Hgb Hct MCV MCH MCHC RDW Plt Count MPV Immature Gran % Neutrophils % Lymphocytes % Monocytes % Eosinophils % Basophils % Nucleated RBC % Absolute Neutrophils Absolute Lymphocytes Absolute Monocytes Absolute Eosinophils Absolute Basophils RBC Morphology Polychromasia Hypochromasia VBG Lactate 0.6 Sodium Potassium Chloride Carbon Dioxide Anion Gap BUN Creatinine Estimated GFR/1.73 m2 Glucose Calcium Magnesium Iron 11 L TIBC 235 L Transferrin % Sat 5 L Ferritin Total Bilirubin AST ALT Alkaline Phosphatase C-Reactive Protein 17.04 H Total Protein Albumin Vitamin B12 Folate Procalcitonin 2.8 Urine Color Urine Clarity Urine pH Ur Specific [place] Urine Protein Urine Ketones Urine Blood Urine Nitrite Urine Bilirubin Urine Urobilinogen Ur Leukocyte Esterase Urine RBC Urine WBC Ur Epithelial Cells Urine Crystals Urine Bacteria Urine Casts Urine Mucus Ur Culture Indicated? Urine Glucose COVID-19 Source 08/23/20 08/23/20 10:22 10:22 WBC RBC Hgb Hct MCV MCH MCHC RDW Plt Count MPV Immature Gran % Neutrophils % Lymphocytes % Monocytes % Eosinophils % Basophils % Nucleated RBC % Absolute Neutrophils Absolute Lymphocytes Absolute Monocytes Absolute Eosinophils Absolute Basophils RBC Morphology Polychromasia Hypochromasia VBG Lactate 0.6 Sodium Potassium Chloride Carbon Dioxide Anion Gap BUN Creatinine Estimated GFR/1.73 m2 Glucose Calcium Magnesium Iron TIBC Transferrin % Sat Ferritin 126 Total Bilirubin AST ALT Alkaline Phosphatase C-Reactive Protein Total Protein Albumin Vitamin B12 304 Folate 12.4 Procalcitonin Urine Color Urine Clarity Urine pH Ur Specific [place] Urine Protein Urine Ketones Urine Blood Urine Nitrite Urine Bilirubin Urine Urobilinogen Ur Leukocyte Esterase Urine RBC Urine WBC Ur Epithelial Cells Urine Crystals Urine Bacteria Urine Casts Urine Mucus Ur Culture Indicated? Urine Glucose COVID-19 Source
[2020-08-23 11:47] LABS: BE (Venous) -10 mmol/L (-2-3); HCO3 (Venous) 17 mmol/L (23-28); O2 Sat (Venous) 93 %; TCO2 (Venous) 17 mmol/L (24-29); pCO2 (Venous) 34 mmHg (41-51); pH (Venous) 7.31 (7.31-7.41); pO2 (Venous) 69 mmHg
[2020-08-23 11:49] LABS: HCT 22.1 % (36.0-46.0); HGB 7.1 g/dL (11.2-15.7)
--- NOTE | 2020-08-23 12:04 | NUR.NOTE ---
Nursing Note: patients bp still considerably soft after 2 NS bolus of [address] Hill visits, patient is trendelenburg with still soft bp. Orders 3 rd bolus of NS, which is started she orders transfer nto ICU. Report given to Ruthie Wright RN. Overview of Dr. Torres verbal orders are relayed to her. Patient is transferred prior to noon.
[2020-08-23 12:05] LABS: Anion Gap 5.9 mmol/L (3-11); BUN 47 mg/dL (7-18); CO2 19.1 mmol/L (21.0-32.0); CREATININE 2.7 mg/dL (0.55-1.02); Calcium 7.6 mg/dL (8.5-10.1); Chloride 110 mmol/L (98-107); Estimated GFR 17.58 (mL/min/1.73m2); Glucose 145 mg/dL (74-106); Potassium 4.6 mmol/L (3.5-5.1); Sodium 135 mmol/L (136-145)
--- NOTE | 2020-08-23 12:16 | W.UROLOGYCON ---
Date of service: 08/23/20 Time of Service: 12:16 Assessment and Plan Assessment and plan (1) Sepsis associated hypotension: Status: Acute Assessment and plan: The mild dilation of the right collecting system looks chronic to me as I also see it on her films from 2019. She is not having any specific flank pain, but with her sepsis and with the mild dilation of the right collecting system, I think we need to place a ureteral stent along with a Rowland catheter to maximize drainage of her urinary tract. We will bring her down urgently/emergency to the operating room for this procedure. (2) HIPOLITO (acute kidney injury): Status: Acute History of Present Illness History of Present Illness Chief Complaint: Urosepsis Narrative: This is a 65-year-old woman who was admitted through the emergency room last evening. She had a urinalysis suggestive of a urinary tract infection and her renal function had worsened compared to baseline. She had a CT scan that was done without contrast that raised the question of right renal collecting system dilation. She was admitted and started on broad-spectrum antibiotics while her cultures were pending. She spiked a temperature this morning and became very tachycardic. She then became hypotensive and has not responded to fluid boluses. She is just being transferred to intensive care unit for pressor infusions. Based on her records, she has a history of kidney stones. Patient does not recall ever having had urologic surgery in the past. She has had multiple urinary tract infections in the past. Her cultures have grown E. coli and Klebsiella. She just completed outpatient therapy with Keflex last week. Review of Systems Narrative: No dysphasia No diabetes Hx COPD. No hemoptysis No chest pain or palpitations Hx GERD. hepatitis, ulcers, jaundice Hx migraines. No seizures No bleeding disorders. Hx anemia No gout [facility] Medical History (Updated 08/23/20 @ 12:10 by Brinda Hill MD) Auditory hallucinations Back pain Calcium kidney stone Chronic constipation COPD (chronic obstructive pulmonary disease) Depressive disorder Diabetes mellitus Fatigue Fracture of orbital floor, left side, sequela GERD (gastroesophageal reflux disease) Glaucoma Headache Hip pain, bilateral Hyperlipidemia Hypertension Insomnia Intracranial aneurysm Knee pain, bilateral Low back pain Lumbar back pain Migraine headache with aura Migraine headache without aura Osteoarthritis Overweight Paranoid schizophrenia Polyarthralgia Tobacco use disorder Umbilical hernia without mention of obstruction or gangrene Urinary frequency Vitamin D deficiency Surgical History History of bilateral tubal ligation Status post coil embolization of cerebral aneurysm Family History Father Colon cancer Renal cancer Sister Breast cancer Mother Abdominal aortic aneurysm Brother Psychiatric illness Social History Smoking/Tobacco Use Status: Current every day Tobacco Type: cigarettes Smoking risk assessment performed?: Yes Alcohol Intake: former Drug use: Current Sobriety Substance use type: does not use Do you feel safe at home: Yes Do you feel safe in your relationship?: Yes Exam Const Other: She is seen in the intensive care unit. She is in the headdown position. Her vital signs are documented elsewhere Her abdomen is soft with no guarding or rebound tenderness She is awake and alert and able to carry on a conversation I placed the 16 Lao Rowland catheter in this patient and purulent urine was obtained Results Last Vital Signs Temp 36 C L 08/23/20 11:18 Pulse 77 08/23/20 11:18 Resp 19 08/23/20 11:18 BP 84/50 L 08/23/20 11:18 Pulse Ox 94 08/23/20 11:18 Labs Result diagrams: 08/23/20 11:40 08/23/20 11:40 Labs: Laboratory Results - last 24 hr 08/22/20 08/22/20 08/22/20 19:45 19:50 19:50 WBC 12.89 H RBC 3.21 L Hgb 9.2 L Hct 28.1 L MCV 87.5 MCH 28.7 MCHC 32.7 RDW 13.9 Plt Count 244 MPV 10.2 Immature Gran % 0.5 Neutrophils % 84.1 Lymphocytes % 6.9 Monocytes % 8.0 Eosinophils % 0.3 Basophils % 0.2 Nucleated RBC % 0 Absolute Neutrophils 10.84 H Absolute Lymphocytes 0.89 L Absolute Monocytes 1.03 H Absolute Eosinophils 0.04 Absolute Basophils 0.03 RBC Morphology Polychromasia Hypochromasia VBG pH VBG pCO2 VBG pO2 VBG HCO3 VBG Total CO2 VBG O2 Saturation VBG Base Excess VBG Lactate Sodium 132 L Potassium 5.4 H Chloride 99 Carbon Dioxide 21.8 Anion Gap 11.2 H BUN 59 H Creatinine 3.1 H Estimated GFR/1.73 m2 14.99 Glucose 195 H Calcium 10.0 Magnesium 1.9 Iron TIBC Transferrin % Sat Ferritin Total Bilirubin 0.5 AST 25 ALT 22 Alkaline Phosphatase 103 C-Reactive Protein Total Protein 7.8 Albumin 2.9 L Vitamin B12 Folate Procalcitonin Urine Color Yellow Urine Clarity Cloudy Urine pH 5.5 Ur Specific Sandoval 1.020 Urine Protein 100 H Urine Ketones Negative Urine Blood Small H Urine Nitrite Negative Urine Bilirubin Negative Urine Urobilinogen 0.2 Ur Leukocyte Esterase Large H Urine RBC 3-5 H Urine WBC >50 H Ur Epithelial Cells Few Urine Crystals Negative Urine Bacteria Many Urine Casts Negative Urine Mucus Trace Ur Culture Indicated? Yes Urine Glucose Negative COVID-19 Source Crossmatch 08/22/20 08/23/20 08/23/20 21:37 06:10 06:10 WBC 8.70 D RBC 2.70 L Hgb 7.7 L Hct 23.5 L MCV 87.0 MCH 28.5 MCHC 32.8 RDW 14.0 Plt Count 209 MPV 10.3 Immature Gran % 0.6 Neutrophils % 89.5 Lymphocytes % 2.6 Monocytes % 7.2 Eosinophils % 0.0 Basophils % 0.1 Nucleated RBC % 0 Absolute Neutrophils 7.79 H Absolute Lymphocytes 0.23 L Absolute Monocytes 0.63 Absolute Eosinophils 0.00 Absolute Basophils 0.01 RBC Morphology See below Polychromasia Present Hypochromasia 2+ VBG pH VBG pCO2 VBG pO2 VBG HCO3 VBG Total CO2 VBG O2 Saturation VBG Base Excess VBG Lactate Sodium 133 L Potassium 5.0 Chloride 105 Carbon Dioxide 17.3 L Anion Gap 10.7 BUN 51 H Creatinine 2.7 H Estimated GFR/1.73 m2 17.58 Glucose 210 H Calcium 8.6 Magnesium Iron TIBC Transferrin % Sat Ferritin Total Bilirubin 0.6 AST 20 ALT 19 Alkaline Phosphatase 88 C-Reactive Protein Total Protein 6.5 Albumin 2.3 L Vitamin B12 Folate Procalcitonin Urine Color Urine Clarity Urine pH Ur Specific Sandoval Urine Protein Urine Ketones Urine Blood Urine Nitrite Urine Bilirubin Urine Urobilinogen Ur Leukocyte Esterase Urine RBC Urine WBC Ur Epithelial Cells Urine Crystals Urine Bacteria Urine Casts Urine Mucus Ur Culture Indicated? Urine Glucose COVID-19 Source Nasal/nares Crossmatch 08/23/20 08/23/20 08/23/20 06:10 06:10 07:46 WBC RBC Hgb Hct MCV MCH MCHC RDW Plt Count MPV Immature Gran % Neutrophils % Lymphocytes % Monocytes % Eosinophils % Basophils % Nucleated RBC % Absolute Neutrophils Absolute Lymphocytes Absolute Monocytes Absolute Eosinophils Absolute Basophils RBC Morphology Polychromasia Hypochromasia VBG pH VBG pCO2 VBG pO2 VBG HCO3 VBG Total CO2 VBG O2 Saturation VBG Base Excess VBG Lactate 0.6 Sodium Potassium Chloride Carbon Dioxide Anion Gap BUN Creatinine Estimated GFR/1.73 m2 Glucose Calcium Magnesium Iron 11 L TIBC 235 L Transferrin % Sat 5 L Ferritin Total Bilirubin AST ALT Alkaline Phosphatase C-Reactive Protein 17.04 H Total Protein Albumin Vitamin B12 Folate Procalcitonin 2.8 Urine Color Urine Clarity Urine pH Ur Specific Sandoval Urine Protein Urine Ketones Urine Blood Urine Nitrite Urine Bilirubin Urine Urobilinogen Ur Leukocyte Esterase Urine RBC Urine WBC Ur Epithelial Cells Urine Crystals Urine Bacteria Urine Casts Urine Mucus Ur Culture Indicated? Urine Glucose COVID-19 Source Crossmatch 08/23/20 08/23/20 08/23/20 10:22 10:22 11:40 WBC RBC Hgb 7.1 L Hct 22.1 L MCV MCH MCHC RDW Plt Count MPV Immature Gran % Neutrophils % Lymphocytes % Monocytes % Eosinophils % Basophils % Nucleated RBC % Absolute Neutrophils Absolute Lymphocytes Absolute Monocytes Absolute Eosinophils Absolute Basophils RBC Morphology Polychromasia Hypochromasia VBG pH VBG pCO2 VBG pO2 VBG HCO3 VBG Total CO2 VBG O2 Saturation VBG Base Excess VBG Lactate 0.6 Sodium Potassium Chloride Carbon Dioxide Anion Gap BUN Creatinine Estimated GFR/1.73 m2 Glucose Calcium Magnesium Iron TIBC Transferrin % Sat Ferritin 126 Total Bilirubin AST ALT Alkaline Phosphatase C-Reactive Protein Total Protein Albumin Vitamin B12 304 Folate 12.4 Procalcitonin Urine Color Urine Clarity Urine pH Ur Specific Sandoval Urine Protein Urine Ketones Urine Blood Urine Nitrite Urine Bilirubin Urine Urobilinogen Ur Leukocyte Esterase Urine RBC Urine WBC Ur Epithelial Cells Urine Crystals Urine Bacteria Urine Casts Urine Mucus Ur Culture Indicated? Urine Glucose COVID-19 Source Crossmatch 08/23/20 08/23/20 08/23/20 11:40 11:40 12:02 WBC RBC Hgb Hct MCV MCH MCHC RDW Plt Count MPV Immature Gran % Neutrophils % Lymphocytes % Monocytes % Eosinophils % Basophils % Nucleated RBC % Absolute Neutrophils Absolute Lymphocytes Absolute Monocytes Absolute Eosinophils Absolute Basophils RBC Morphology Polychromasia Hypochromasia VBG pH 7.31 VBG pCO2 34 L VBG pO2 69 VBG HCO3 17 L VBG Total CO2 17 L VBG O2 Saturation 93 VBG Base Excess -10 L VBG Lactate Sodium 135 L Potassium 4.6 Chloride 110 H Carbon Dioxide 19.1 L Anion Gap 5.9 BUN 47 H Creatinine 2.7 H Estimated GFR/1.73 m2 17.58 Glucose 145 H Calcium 7.6 L Magnesium Iron TIBC Transferrin % Sat Ferritin Total Bilirubin AST ALT Alkaline Phosphatase C-Reactive Protein Total Protein Albumin Vitamin B12 Folate Procalcitonin Urine Color Urine Clarity Urine pH Ur Specific Sandoval Urine Protein Urine Ketones Urine Blood Urine Nitrite Urine Bilirubin Urine Urobilinogen Ur Leukocyte Esterase Urine RBC Urine WBC Ur Epithelial Cells Urine Crystals Urine Bacteria Urine Casts Urine Mucus Ur Culture Indicated? Urine Glucose COVID-19 Source Crossmatch See Detail
[2020-08-23] MEDS: Lidocaine 2% Jelly 6 ML SYR (12:58)
[2020-08-23] MEDS: Omnipaque 300 MG/ML 50 ML BTL (13:09)
[2020-08-23 13:10] LABS: COVID-19 PCR Negative (Negative)
--- NOTE | 2020-08-23 13:20 | DI.RAD_ITS ---
EXAM: XR RETROGRADE IN OR CLINICAL HISTORY: SEPSIS RELATED HYPOTENSION TECHNIQUE: 2D and realtime digital imaging was performed. CONTRAST MATERIAL: Refer to procedure report. COMPARISON: No exams were available for comparison FINDINGS: Fluoroscopy was provided for Dr. Kruse during the performance of a retrograde evaluation of the ester l collecting system. Please refer to the procedure report for complete details. Fluoro time: 12.4 seconds IMPRESSION: RADIATION DOSE DELIVERED:
--- NOTE | 2020-08-23 13:22 | ROE_ITS ---
Date of service: 08/23/20 Time of Service: 13:22 Operative Note Operative Note DATE OF PROCEDURE: 08/23/20 PRE-OP DIAGNOSIS: Urosepsis POST-OP DIAGNOSIS: same PROCEDURE: cystoscopy, right retrograde pyelogram, insert right ureteral stent SURGEON: Ambrocio Kruse ANESTHESIA TYPE: General:No Airway Refer to Anesthesia Record ESTIMATED BLOOD LOSS: 15 PATHOLOGY: none sent COMPLICATIONS: None Patient was transported to: PACU Patient's condition: critical Implants: 6 danish by 22 to 30 cm ureteral stent Indications: This is a 65-year-old woman who presented to our hospital with abdominal pain. She was found to have a urinalysis suggestive of UTI. She also had a serum creatinine that was elevated from baseline. She was evaluated with a noncontrast CT scan that showed some mild dilation of the right collecting system. This seemed to be chronic and that it was also present on the 2019 study. Since her admission last evening she began showing signs of sepsis with hypotension. She required fluid resuscitation and pressors. She presents now for stent placement to provide maximal drainage to the right kidney. Findings: No purulent drainage from the right kidney Procedure Description: The patient was brought to the operating room on 08/23/2020. After successful induction of general anesthesia without intubation, she was placed in the dorsal lithotomy position. Her indwelling catheter was removed. Her genitalia was prepped and draped. A 21 [place]ese rigid cystoscope was then passed through the urethra into the bladder. The bladder was inspected with a 30 degree lens. No stones or bladder masses were identified. The right ureteral orifice was then cannulated with a 6 [place]ese access catheter. Retrograde film was obtained to outline the collecting system and upper ureter. A Glidewire was then advanced through the access catheter. The access catheter was removed and a 6 [place] variable length stent was advanced over the wire. The stent was positioned with the proximal end curled in the renal pelvis and the distal and curled in the bladder. The positioning of the stent was confirmed both fluoroscopically and cystoscopically. The cystoscope was removed. A new 16 [place] Rowland catheter was passed through the urethra into the bladder. The catheter balloon was inflated with 10 cc of sterile water and the catheter was hooked to gravity drainage.
[2020-08-23] MEDS: ACETAMINOPHEN 1,000 MG/100 ML BTL 400 MG IVPB ×2 (15:07→22:10)
--- NOTE | 2020-08-23 15:23 | INITIAL_ITS ---
- If Service Date Differs Date of service: 08/23/20 Time of Service: 15:23 Care Management Initial Assess REASON FOR HOSPITALIZATION:: HIPOLITO, UTI PAST MEDICAL HISTORY/PAST SURGICAL HISTORY:: Medical History. Auditory hallucinations. Back pain. Calcium kidney stone. Chronic constipation. COPD (chronic obstructive pulmonary disease). Depressive disorder. Diabetes mellitus. Fatigue. Fracture of orbital floor, left side, sequela. GERD (gastroesophageal reflux disease). Glaucoma. Headache. Hip pain, bilateral. Hyperlipidemia. Hypertension. Insomnia. Intracranial aneurysm. Knee pain, bilateral. Low back pain. Lumbar back pain. Migraine headache with aura. Migraine headache without aura. Osteoarthritis. Overweight. Paranoid schizophrenia. Polyarthralgia. Tobacco use disorder. Umbilical hernia without mention of obstruction or gangrene. Urinary frequency. Vitamin D deficiency. Surgical History. History of bilateral tubal ligation. Status post coil embolization of cerebral aneurysm PREVIOUS FUNCTIONAL STATUS/SOCIAL/FAMILY SUPPORTS:: Nya lives at [facility], a usp in [place], [place]. Her brother, Jonnie, also lives at [facility]. She has a sister who lives in [facility]. She is a [employer] client, who has expressed fears and consistent concerns about her residence. She is always agreeable to returning when [facility] arrives to transport her home. CURRENT FUNCTIONAL STATUS:: Nya was moved to the ICU this morning, and then quickly went to the OR to place a ureteral stent. When CM attempted to meet with her after her surgery, she had a high fever and was shaking. There were several nurses surrounding her. CM opted not to visit with her today, due to her condition. CM will continue to follow. ADVANCE DIRECTIVES:: None on file. Has patient been provided with info about the portal/API?: No Did the patient sign up for the portal?: No CODE STATUS:: Full Code INSURANCE COVERAGE / FINANCIAL ISSUES:: [facility]/ [employer] CURRENT HOME/COMMUNITY SERVICES/EQUIPMENT:: Assisted living at [facility]. GEOTECHNICAL ENGINEER through [facility]. PRIMARY CARE PHYSICIAN:: Tosin Lundberg POTENTIAL DISCHARGE NEEDS:: Coordinated return to [facility] including transportation, follow up appointments. PATIENT/FAMILY EDUCATION NEEDS:: Review of discharge instructions, discuss Ask Me Three. ANTICIPATED BARRIERS TO DISCHARGE:: None identified. TRANSPORTATION:: Via private vehicle with [facility] vs [facility]. PLAN:: Nya will return to [facility] when ready per MD. She will follow up with her PCP and plan of care as prescribed. She will transport via private vehicle with [facility] from [facility] vs [facility]. CM will continue to follow.
[2020-08-23 15:28] LABS: Lactate 1.5 mmol/L (0.6-1.4)
--- NOTE | 2020-08-23 15:28 | NUR.NOTE ---
1435: This RN arrived to the PACU to recieve pt. Per GEOLOGICAL TECHNICAL OFFICERCarlotta, pt was ready to return to the ICU after her renal stent placement, a surgical procedure by Dr. Kruse. Upon this RN's arrival to PACU pt was awake with notable shaking chills. Pt was wrapped in blankets and covered with the Bare Hunger blanket. Temp checked at this point = 37.2, BP checked at this point 115/73. Norepinephrine had been off for about 20 minutes per GEOLOGICAL TECHNICAL OFFICER Carlotta Sharma. Sinus Tachycardia noted on monitor. Hr's 120's - 130 bpm. Resp rates 24-30 bpm. 02 sats above 94%. Rowland checked at this point, pale pink urine with few flecks of bright red blood noted in tubing. This RN made handoff RN Carlotta Sharma and SHIRRER, Randell Nair aware of my concerns this patient's status has changed from afebrile with HR's in th 80's just prior to surgury to present concerns of symptomatic Rigors with tachycardia post op. 1500: Returned patient to room ICU [address] Hill was contacted regarding pt's return from surgical procedure and present temp 39.2 with continued Rigors. NS infusing at 150cc/hr. Acetaminophen IVPB started. Handoff report given to Shahab Blake RN.
--- NOTE | 2020-08-23 16:00 | PHACLINREV_ITS ---
Pharmacy Admission Review - Admission Clinical Review (Last Reviewed 08/22/20 @ 21:54 by Randell Zhang) Metabolic acidosis (Acute) Toxic metabolic encephalopathy (Acute) Acute on chronic anemia (Acute) Sepsis associated hypotension (Acute) Obstructive uropathy (Acute) HIPOLITO (acute kidney injury) (Acute) Acute UTI (Acute) Hyperkalemia (Acute) UTI (urinary tract infection) (Acute) DVT prophylaxis (Acute) Discharge planning issues (Acute) fluphenazine enanthate [From Prolixin] Adverse Reaction (Severe, Verified 08/22/20 21:36) almost last time they gave it to me fluphenazine HCl [From Prolixin] Adverse Reaction (Severe, Verified 08/22/20 21:36) almost last time they gave it to me haloperidol [From Haldol] Adverse Reaction (Mild, Verified 08/22/20 21:36) doesn't agree with tx haloperidol lactate [From Haldol] Adverse Reaction (Mild, Verified 08/22/20 21:36) doesn't agree with me chlorpromazine HCl [From Thorazine] Adverse Reaction (Unknown, Verified 08/22/20 21:36) [place] [facility] [place]ine Adverse Reaction (Unknown, Verified 08/22/20 21:36) [place] [facility] ibuprofen Adverse Reaction (Unknown, Verified 08/22/20 21:36) [place] [facility] Adverse Reaction (Unknown, Verified 08/22/20 21:36) [place] [facility] paliperidone [From Invega] Adverse Reaction (Unknown, Verified 08/22/20 21:36) [place] [facility] [place] Penicillins Adverse Reaction (Unknown, Verified 08/22/20 21:36) [place] [facility] [place] Sulfa (Sulfonamide Antibiotics) Adverse Reaction (Unknown, Verified 08/22/20 21:36) [place] [facility] [place] Height 5 ft 4 in Weight 68.2 kg Urosepsis, HIPOLITO - Comments Comments/Follow Ups: Fever Tmax 39.2, Urinalysis >50K WBC, Urine culture >100K E.coli, Blood cultures pending. WBC 8.7. Became Hypotensive and started Norepinephrine weight based (high dose) once transferred to ICU. Patient then went to OR urgently for Urine stent placement. BP's have stabilized, HR>100. Verified with [facility] program that the patient is eligible to receive med, last ANC reported was 08/17/2020. Follow VS, H/H, WBC, Micro and Levaquin dosing, Procalcitonin trend, CRP. Watch for restart of Heparin once signs bleeding have subsided - Renal Dosing Renal Dosing: BUN 47 mg/dL (7-18) H 08/23/20 11:40 Creatinine 2.7 mg/dL (0.55-1.02) H 08/23/20 11:40 Medications needing adjustments: Intervened (CrCl~17.45ml/min (Levofloxacin), got 1x 500mg in ED, then added 250mg x1. Currently entered as 750mg Q48h but may need further adjustment to 500mg Q48h if CrCl remains under 20ml/min) - Anticoagulation Anticoagulation: Hgb 7.1 g/dL (11.2-15.7) L 08/23/20 11:40 Hct 22.1 % (36.0-46.0) L 08/23/20 11:40 Plt Count 209 10^3/uL (130-400) 08/23/20 06:10 Creatinine 2.7 mg/dL (0.55-1.02) H 08/23/20 11:40 DVT Prohphylaxis: Reviewed Medications: Heparin (on hold-went to OR for cystoscopy, H/H low ,rec'd 1 unit of blood, ASA also held) - Opiate Usage Evaluate Pain Scale/Pains Meds: N/A - Relevant Labs Sodium 135 mmol/L (136-145) L 08/23/20 11:40 Potassium 4.6 mmol/L (3.5-5.1) 08/23/20 11:40 Chloride 110 mmol/L (98-107) H 08/23/20 11:40 Magnesium 1.9 mg/dL (1.8-2.4) 08/22/20 19:50 C-Reactive Protein 17.04 mg/dL (0.0-0.3) H 08/23/20 06:10 Electrolytes, C-Reactive P, ESR: Reviewed (Procalcitonin 2.8, C-reactive elevated, Iron panel low) - DM Control DM Control: Glucose 145 mg/dL (74-106) H 08/23/20 11:40 Finger Stick Blood Glucose 142 Finger Stick Blood Glucose 157 Finger Stick Blood Glucose 198 Insulin Dosing: Reviewed (Novolog scale) - BP Control BP Control: Blood Pressure 114/46 Blood Pressure 106/55 Blood Pressure 123/62 Blood Pressure 91/55 Blood Pressure 132/72 Blood Pressure 136/93 Blood Pressure 120/42 Blood Pressure 145/49 Blood Pressure 127/70 Blood Pressure 115/59 Blood Pressure 124/40 Blood Pressure 99/40 Blood Pressure 91/35 Blood Pressure 92/42 Blood Pressure 92/42 Blood Pressure 81/56 Blood Pressure 95/39 Blood Pressure 126/44 Blood Pressure 120/47 Blood Pressure 120/45 Blood Pressure 130/47 Blood Pressure 119/51 Blood Pressure 118/48 Blood Pressure 122/48 Blood Pressure 112/43 Blood Pressure 117/42 Blood Pressure 107/51 Blood Pressure 96/45 Blood Pressure 94/49 Blood Pressure 80/45 Blood Pressure 78/43 Blood Pressure 91/46 Blood Pressure 65/49 Blood Pressure 63/42 Blood Pressure 71/50 Blood Pressure 84/50 Blood Pressure 96/46 Blood Pressure 92/48 If elevated: Reviewed (Was Hypotensive, Norepinephrine started ~ 1200 and currently paused) - IV to PO Switch IV Medications: Reviewed (IV Levaquin, IV APAP post-op) - Home Meds Relevent Home Meds Not ordered & why?: Combigan eye drops, Acetylcysteine (NAC), Alendronate weekly, Metformin, Lisinopril Antibiotic Activity - Pharmacy Antibiotic Review Pharmacy Antibiotic Activity: C/S review - Antibiotic Information Antibiotic Review Info: Ceftriaxone and Levofloxacin for urosepsis day#2
[2020-08-23] MEDS: Gabapentin 100 MG CAP PO (22:07)
[2020-08-23] MEDS: Melatonin 3 MG TAB PO (22:08)
[2020-08-23] MEDS: Latanoprost 0.005% 2.5 ML BTL OU (22:08)
[2020-08-23] MEDS: Normal Saline Flush 10 ML SYR IVP (22:08)
[2020-08-23] MEDS: Nystatin POWDER 15 GM JAR TP (22:09)
[2020-08-24] VITALS (99 sets, daily range): BP systolic 89–145; BP diastolic 42–66; PULSE 74–96; RESP 14–24; TEMP 36.2–37.6; O2SAT 89–98
--- NOTE | 2020-08-24 | DI.US_ITS ---
EXAM: US EXTREMITY VENOUS BI CLINICAL HISTORY: hypotension, leg pain, concern for DVT/PE. TECHNIQUE: Ultrasound performed using standard protocol. COMPARISON: US US BREAST RT LIMITED from 01/08/2020 FINDINGS: Duplex venous ultrasound was performed according to the usual protocol. The deep veins are freely com pressible throughout and there is normal flow augmentation with manual calf compression. 2D and Doppl er evaluation are unremarkable. IMPRESSION: No evidence of deep venous thrombosis of the right or left lower extremity. DATA REPOSITORY:
[2020-08-24] MEDS: Normal Saline Flush 10 ML SYR IVP ×3 (06:13→21:18)
[2020-08-24] MEDS: ACETAMINOPHEN 1,000 MG/100 ML BTL 400 MG IVPB (06:13)
[2020-08-24] MEDS: Normal Saline 1,000 ML 150 ML IV (06:13)
[2020-08-24 06:48] LABS: Abs Immature Grans 0.04 10^3/uL (0.0-0.06); Absolute Basophil Count 0.04 10^3/uL (0.0-0.2); Absolute Eosinophil Count 0.01 10^3/uL (0.0-0.7); Absolute Lymphocyte Count 0.53 10^3/uL (1.2-3.4); Absolute Monocyte Count 0.44 10^3/uL (0.1-0.8); Absolute Neutrophil Count 7.08 10^3/uL (1.2-6.7); Basophils % 0.5; Eosinophils % 0.1; HCT 27.6 % (36.0-46.0); HGB 8.8 g/dL (11.2-15.7); Immature Grans % 0.5; Lymphocytes % 6.5; MCH 28.1 pg (27.0-33.0); MCHC 31.9 % (32.0-36.0); MCV 88.2 fL (80-95); MPV 10.3 fL (8.0-11.0); Monocytes % 5.4; Nucleated RBC 0 %; Platelet Count 184 10^3/uL (130-400); RBC 3.13 10^6/uL (3.93-5.22); RDW-SD 48.4 fL; WBC 8.14 10^3/uL (4.4-10.8)
[2020-08-24 06:58] LABS: Anion Gap 13.7 mmol/L (3-11); BUN 35 mg/dL (7-18); CO2 15.3 mmol/L (21.0-32.0); CREATININE 2.3 mg/dL (0.55-1.02); Calcium 7.2 mg/dL (8.5-10.1); Chloride 114 mmol/L (98-107); Estimated GFR 21.15 (mL/min/1.73m2); Glucose 115 mg/dL (74-106); Magnesium 1.4 mg/dL (1.8-2.4); Potassium 4.6 mmol/L (3.5-5.1); Sodium 143 mmol/L (136-145)
--- NOTE | 2020-08-24 07:52 | CMPROGNOTE_ITS ---
Care Management Progress Note S/O: Nya was transferred to the ICU yesterday due to increase in symptoms status post cysto and right ureteral stent placement. She remains on IV ABX for sepsis, with medication adjustments. She remains ICU level of care with close monitoring of Urosepsis, HIPOLITO and acute on chronic anemia. She was able to stand at the bedside for a moment today per RN. Rowland remains in place at this time. She reportedly told MD her primary concern today was her living arrangement-CM to address prior to discharge. CM continues to follow. A: 65 year old female admitted to [facility] 08/22/20 for HIPOLITO, UTI P: Nya will return to [place] when ready per MD. She will follow up with her PCP and plan of care as prescribed. She will transport via private vehicle with [facility] from [place] vs [facility]. CM will continue to follow. - MH Services (Omit if N/A) Current MH Services: [employer] ([facility]
[2020-08-24 08:20] LABS: Lactate 0.5 mmol/L (0.6-1.4)
[2020-08-24 08:22] LABS: BE (Venous) -12 mmol/L (-2-3); HCO3 (Venous) 14 mmol/L (23-28); O2 Sat (Venous) 92 %; TCO2 (Venous) 14 mmol/L (24-29); pCO2 (Venous) 30 mmHg (41-51); pH (Venous) 7.29 (7.31-7.41); pO2 (Venous) 62 mmHg
--- NOTE | 2020-08-24 08:23 | PGE_ITS ---
Date of Service Date of service: 08/24/20 Time of Service: : Assessment and Plan Assessment and plan (1) Sepsis associated hypotension: Status: Acute Assessment and plan: Source: UTI present on admission with evidence of ureteral thickening on CT. S/p cysto/R ureteral stent 08/23/20 Blood cultures are negative. Urine C&S with orourke-sensitive E.Coli We are decreasing IVF given signs of fluid overload on CXR. Not requiring pressors at this time, but may have to have them resumed if BPs drop on decreased rate of IVF. Continue high dose ceftriaxone + levofloxacin. Trend CRP/procalcitonin. Await venous dopplers to r/o DVT (yesteday, patient was reported BLE pain; was hypotensive and short of breath). (2) Acute UTI: Status: Acute Assessment and plan: As above (3) HIPOLITO (acute kidney injury): Status: Acute Assessment and plan: In setting of sepsis, hypotension, obstructive uropathy. This has improved post cysto/stent, aggressive IVF, vasopressors, abx/quan catheter insertion. Trend Cr. Hyperkalemia has resolved (4) Obstructive uropathy: Status: Acute Assessment and plan: S/p cysto/R ureteral stent 08/23/2020 as well as quan catheter placement. MOnitor Cr. (5) Toxic metabolic encephalopathy: Status: Resolved Assessment and plan: In setting of sepsis/impending shock. Currently, appears to be back to baseline. (6) Hyperkalemia: Status: Resolved Assessment and plan: In setting of HIPOLITO. Continue to monitor. (7) Acute on chronic anemia: Status: Acute Assessment and plan: No obvious source of acute bleeding to explain this degree of anemia. Small amount of blood in urine is unlikely to explain this. S/p transfusion of 1 unit of pRBCs on 08/23/2020; H/H improved. Continue to monitor for bleeding. Replete B12. I suspect a dilutional component. Await hemoccult. (8) Metabolic acidosis: Status: Acute Assessment and plan: In setting of HIPOLITO/sepsis and aggressive hydration with NS. Change IVF to LR. Continue monitoring Cr and treating infection. pH 7.3. LA ok. (9) Diabetes mellitus: Status: Chronic Assessment and plan: Change SSI to AC/HS now that clear liquids are permitted. Qualifiers: Diabetes mellitus type: type 2 Diabetes mellitus [facility] insulin use: without long wall shear operator use Diabetes mellitus complication status: without complication Qualified Code(s): E11.9 - Type 2 diabetes mellitus without complications (10) DVT prophylaxis: Status: Acute Assessment and plan: Holding SCDs until venous dopplers are done. Resume SC heparin and trend H/H. (11) Discharge planning issues: Status: Acute Assessment and plan: Full code Keep in ICU Total Critical Care Time 60 minutes. Subjective Subjective Interval history since last seen: Ms Westbrook feels better than yesterday. She is s/p cysto/R ureteral stent placement yesterday. The thing that bothers her the most today is her living situation. I reassured her that care management will address these concerns. When talking about her body, she initially denied pain, but endorse RLQ pain on physical exam. She states it has hurt for quite a while. She denies dizziness, chest pain, shortness of breath, nausea. Thirsty and hungry. Pressors off since 8 am this am, more or less. MAP around 60. Mentating. Joking. Mental status is definitely better. No fever since 7:20 pm yesterday. Getting tylenol for Back pain and L jaw pain (x months) - the patient reported neither of these to me, but reports this to nursing UOP: >40 cc/hr. Blood yesterday in urine - no longer. SC heparin/asa on hold. Exam Narrative Exam Narrative: General: Middle-aged female, laying flat in bed without respiratory distress/tachypnea/dyspnea, A&Ox2 (thinks she is in [facility]), looks much better than yesterday HEENT: EOMI, MMM Heart: RRR, no m/r/g Lungs: Crackles at B bases Abdomen: soft, nondistended, tender in RLQ Extremities: no edema BLE's, SCDs on Objective Last Vital Signs Temp 37.6 C H 08/24/20 06:26 Pulse 87 08/24/20 07:31 Resp 23 08/24/20 07:31 BP 126/50 L 08/24/20 07:31 Pulse Ox 94 08/24/20 07:31 Laboratory Results - last 24 hr 08/22/20 08/23/20 08/23/20 21:37 06:10 07:46 WBC RBC Hgb Hct MCV MCH MCHC RDW Plt Count MPV Immature Gran % Neutrophils % Lymphocytes % Monocytes % Eosinophils % Basophils % Nucleated RBC % Absolute Neutrophils Absolute Lymphocytes Absolute Monocytes Absolute Eosinophils Absolute Basophils VBG pH VBG pCO2 VBG pO2 VBG HCO3 VBG Total CO2 VBG O2 Saturation VBG Base Excess VBG Lactate Sodium Potassium Chloride Carbon Dioxide Anion Gap BUN Creatinine Estimated GFR/1.73 m2 Glucose Calcium Magnesium Iron 11 L TIBC 235 L Transferrin % Sat 5 L Ferritin Vitamin B12 Folate Procalcitonin 2.8 SARS-CoV-2 (PCR) Negative Patient ABO/Rh Antibody Screen Crossmatch 08/23/20 08/23/20 08/23/20 10:22 10:22 11:40 WBC RBC Hgb 7.1 L Hct 22.1 L MCV MCH MCHC RDW Plt Count MPV Immature Gran % Neutrophils % Lymphocytes % Monocytes % Eosinophils % Basophils % Nucleated RBC % Absolute Neutrophils Absolute Lymphocytes Absolute Monocytes Absolute Eosinophils Absolute Basophils VBG pH VBG pCO2 VBG pO2 VBG HCO3 VBG Total CO2 VBG O2 Saturation VBG Base Excess VBG Lactate 0.6 Sodium Potassium Chloride Carbon Dioxide Anion Gap BUN Creatinine Estimated GFR/1.73 m2 Glucose Calcium Magnesium Iron TIBC Transferrin % Sat Ferritin 126 Vitamin B12 304 Folate 12.4 Procalcitonin SARS-CoV-2 (PCR) Patient ABO/Rh Antibody Screen Crossmatch 08/23/20 08/23/20 08/23/20 11:40 11:40 11:40 WBC RBC Hgb Hct MCV MCH MCHC RDW Plt Count MPV Immature Gran % Neutrophils % Lymphocytes % Monocytes % Eosinophils % Basophils % Nucleated RBC % Absolute Neutrophils Absolute Lymphocytes Absolute Monocytes Absolute Eosinophils Absolute Basophils VBG pH 7.31 VBG pCO2 34 L VBG pO2 69 VBG HCO3 17 L VBG Total CO2 17 L VBG O2 Saturation 93 VBG Base Excess -10 L VBG Lactate Sodium 135 L Potassium 4.6 Chloride 110 H Carbon Dioxide 19.1 L Anion Gap 5.9 BUN 47 H Creatinine 2.7 H Estimated GFR/1.73 m2 17.58 Glucose 145 H Calcium 7.6 L Magnesium Iron TIBC Transferrin % Sat Ferritin Vitamin B12 Folate Procalcitonin SARS-CoV-2 (PCR) Patient ABO/Rh A Negative Antibody Screen Negative Crossmatch See Detail 08/23/20 08/24/20 08/24/20 15:01 06:06 06:06 WBC 8.14 RBC 3.13 L Hgb 8.8 L Hct 27.6 L D MCV 88.2 MCH 28.1 MCHC 31.9 L RDW 15.0 H Plt Count 184 MPV 10.3 Immature Gran % 0.5 Neutrophils % 87.0 Lymphocytes % 6.5 Monocytes % 5.4 Eosinophils % 0.1 Basophils % 0.5 Nucleated RBC % 0 Absolute Neutrophils 7.08 H Absolute Lymphocytes 0.53 L Absolute Monocytes 0.44 Absolute Eosinophils 0.01 Absolute Basophils 0.04 VBG pH VBG pCO2 VBG pO2 VBG HCO3 VBG Total CO2 VBG O2 Saturation VBG Base Excess VBG Lactate 1.5 H Sodium 143 Potassium 4.6 Chloride 114 H Carbon Dioxide 15.3 L Anion Gap 13.7 H BUN 35 H D Creatinine 2.3 H Estimated GFR/1.73 m2 21.15 Glucose 115 H Calcium 7.2 L Magnesium 1.4 L Iron TIBC Transferrin % Sat Ferritin Vitamin B12 Folate Procalcitonin SARS-CoV-2 (PCR) Patient ABO/Rh Antibody Screen Crossmatch 08/24/20 08/24/20 08:18 08:18 WBC RBC Hgb Hct MCV MCH MCHC RDW Plt Count MPV Immature Gran % Neutrophils % Lymphocytes % Monocytes % Eosinophils % Basophils % Nucleated RBC % Absolute Neutrophils Absolute Lymphocytes Absolute Monocytes Absolute Eosinophils Absolute Basophils VBG pH 7.29 L VBG pCO2 30 L VBG pO2 62 VBG HCO3 14 L VBG Total CO2 14 L VBG O2 Saturation 92 VBG Base Excess -12 L VBG Lactate 0.5 L Sodium Potassium Chloride Carbon Dioxide Anion Gap BUN Creatinine Estimated GFR/1.73 m2 Glucose Calcium Magnesium Iron TIBC Transferrin % Sat Ferritin Vitamin B12 Folate Procalcitonin SARS-CoV-2 (PCR) Patient ABO/Rh Antibody Screen Crossmatch Objective Narrative Objective Narrative: CXR: Portable AP chest at 0824 hours. The heart is at the upper limits of normal in size. There are questionable areas of mildly increased pulmonary interstitial prominence bilaterally in comparison with prior radiographs of August 07. Possibility of early CHF or patchy multifocal pneumonitis should be considered. No gross pleural effusion on this frontal film.
--- NOTE | 2020-08-24 08:33 | DI.RAD_ITS ---
EXAM: XR PORTABLE CHEST AP CLINICAL HISTORY: ?CHF - crackles, patient feels short of breath TECHNIQUE: COMPARISON: CR,XR XR CHEST 1V IN DI DEPT from 08/07/2020 FINDINGS: Portable AP chest at 0824 hours. The heart is at the upper limits of normal in size. There are ques tionable areas of mildly increased pulmonary interstitial prominence bilaterally in comparison with p rior radiographs of August 07. Possibility of early CHF or patchy multifocal pneumonitis should be considered. No gross pleural effusion on this frontal film. Additional evaluation with PA and lateral chest or chest CT may be considered if clinically appropria te. IMPRESSION: RADIATION DOSE DELIVERED: Total DLP
[2020-08-24] MEDS: Polyethylene Glycol 3350 17 GM PACKET PO (08:47)
[2020-08-24] MEDS: Cyanocobalamin 500 MCG TAB 1000 MCG PO (08:47)
[2020-08-24] MEDS: cefTRIAXone 2 GM/50 ML BAG IVPB (08:48)
[2020-08-24] MEDS: Citalopram 20 MG TAB PO (08:49)
[2020-08-24] MEDS: MAGNESIUM SULFATE 2 GM/50 ML BAG IVPB (09:36)
--- NOTE | 2020-08-24 09:37 | W.INDIABCONS ---
Date of service: 08/24/20 Time of Service: 09:37 Diabetes Inpatient Consult DESCRIPTION/ASSESSMENT: 65 year old female admitted with UTI and metabolic encephalopathy, with hx of DM2. Pietro lives in a skilled nursing. Most recent A1C: 7.3% indicating mildly elevated blood sugars. No Dm home meds noted. BS while hospitalized mostly wnl. Admitted to ICU, 08/23/20 due to metabolic acidosis. Currently not appropriate for education. Recommend oral Dm meds at discharge for optimal glycemic control with an A1C <7%. INTERVENTION: Currently NPO, advance diet as tolerated to CHO PLAN: will monitor po intake, labs and weight, will be available prn Time Spent in Nutritional Counseling and Treatment: 0
[2020-08-24] MEDS: Lactated Ringers 1,000 ML 150 ML IV (09:39)
--- NOTE | 2020-08-24 14:06 | CHAPLAIN ---
Nya was resting in bed when I visited. She responded to questions, but was reserved in her responses. She lives at [facility]. I wasn't able to reach her sister, Daija, with the phone number that Nya gave me. Mireille Wright RN, left a message for Daija. Nya said her brother lives nearby, but two other sisters live at a distance. Nya asked for some help drinking her coffee with a staw. I will continue to visit.
[2020-08-24] MEDS: Heparin 5,000 UNITS/ML VIAL 5000 UNITS SC ×2 (14:19→21:15)
[2020-08-24] MEDS: Melatonin 3 MG TAB PO (21:15)
[2020-08-24] MEDS: Simvastatin 20 MG TAB PO (21:15)
[2020-08-24] MEDS: Latanoprost 0.005% 2.5 ML BTL OU (21:15)
[2020-08-24] MEDS: Gabapentin 100 MG CAP PO (21:15)
[2020-08-24] MEDS: Lactated Ringers 1,000 ML 75 ML IV (21:17)
[2020-08-25] VITALS (31 sets, daily range): BP systolic 130–156; BP diastolic 64–123; PULSE 81–184; RESP 16–23; TEMP 36.4–37.6; O2SAT 91–96
[2020-08-25 06:45] LABS: Abs Immature Grans 0.05 10^3/uL (0.0-0.06); Absolute Basophil Count 0.04 10^3/uL (0.0-0.2); Absolute Eosinophil Count 0.06 10^3/uL (0.0-0.7); Absolute Lymphocyte Count 0.68 10^3/uL (1.2-3.4); Absolute Monocyte Count 0.64 10^3/uL (0.1-0.8); Absolute Neutrophil Count 6.72 10^3/uL (1.2-6.7); Basophils % 0.5; Eosinophils % 0.7; HCT 28.1 % (36.0-46.0); Immature Grans % 0.6; Lymphocytes % 8.3; MCH 27.9 pg (27.0-33.0); MPV 10.3 fL (8.0-11.0); Monocytes % 7.8; Neutrophils % 82.1; Nucleated RBC 0 %; Platelet Count 183 10^3/uL (130-400); RBC 3.23 10^6/uL (3.93-5.22); RDW 14.8 % (11.7-14.6); RDW-SD 47.9 fL; WBC 8.19 10^3/uL (4.4-10.8)
[2020-08-25 06:55] LABS: Anion Gap 12.3 mmol/L (3-11); BUN 24 mg/dL (7-18); C-Reactive Protein 16.99 mg/dL (0.0-0.3); CO2 20.7 mmol/L (21.0-32.0); CREATININE 1.8 mg/dL (0.55-1.02); Calcium 7.6 mg/dL (8.5-10.1); Chloride 109 mmol/L (98-107); Estimated GFR 28.07 (mL/min/1.73m2); Glucose 128 mg/dL (74-106); Magnesium 1.6 mg/dL (1.8-2.4); Potassium 3.9 mmol/L (3.5-5.1); Sodium 142 mmol/L (136-145)
[2020-08-25] MEDS: Docusate Sodium 100 MG CAP PO (06:59)
[2020-08-25] MEDS: Milk of Magnesia 30 ML CUP PO (06:59)
[2020-08-25] MEDS: Polyethylene Glycol 3350 17 GM PACKET PO (06:59)
[2020-08-25] MEDS: Heparin 5,000 UNITS/ML VIAL 5000 UNITS SC ×3 (06:59→20:44)
--- NOTE | 2020-08-25 08:35 | W.PM.PROGNOT ---
Date of Service Date of service: 08/25/20 Time of Service: 10:29 Assessment and Plan Assessment and plan (1) Sepsis associated hypotension: Status: Acute Assessment and plan: Source: E. Coli UTI and bacteremia present on admission with evidence of ureteral thickening on CT. S/p cysto/R ureteral stent 08/23/20 Repeat blood cultures pending. Continue high dose ceftriaxone and levofloxacin. D/c IVF. Transfer out of the ICU. Trend CRP/procalcitonin. (2) Acute UTI: Status: Acute Assessment and plan: As above (3) HIPOLITO (acute kidney injury): Status: Acute Assessment and plan: In setting of sepsis, hypotension, obstructive uropathy. Improving. Hyperkalemia has resolved. D/c IVF and recheck Cr in am. (4) Obstructive uropathy: Status: Acute Assessment and plan: S/p cysto/R ureteral stent 08/23/2020 as well as quan catheter placement. Monitor Cr. (5) Toxic metabolic encephalopathy: Status: Resolved Assessment and plan: In setting of sepsis/impending shock. Currently, appears to be back to baseline. (6) Hyperkalemia: Status: Resolved Assessment and plan: In setting of HIPOLITO. Continue to monitor. (7) Acute on chronic anemia: Status: Acute Assessment and plan: No obvious source of acute bleeding to explain this degree of anemia. Small amount of blood in urine is unlikely to explain this. S/p transfusion of 1 unit of pRBCs on 08/23/2020; H/H improved. Continue to monitor for bleeding. Replete B12. I suspect a dilutional component. Await hemoccult. (8) Metabolic acidosis: Status: Acute Assessment and plan: In setting of HIPOLITO/sepsis and aggressive hydration with NS. Improved. Monitor with d/c of IVF. Continue monitoring Cr and treating infection (9) Diabetes mellitus: Status: Chronic Assessment and plan: Continue SSI Qualifiers: Diabetes mellitus type: type 2 Diabetes mellitus [facility] insulin use: without moth exterminator use Diabetes mellitus complication status: without complication Qualified Code(s): E11.9 - Type 2 diabetes mellitus without complications (10) DVT prophylaxis: Status: Acute Assessment and plan: TEDs/SCDs/SC heparin and trend H/H. (11) Discharge planning issues: Status: Acute Assessment and plan: Full code Transfer out of ICU Subjective Subjective Interval history since last seen: Ms Westbrook is anxious about how much work she has to do to get better. She denies dizziness, chest pain, shortness of breath, nausea. Reports RLQ tenderness. Vomited x2 last night suddenly. Tolerating clears this morning. UOP 800cc in 4 hrs. VSS off pressors, MAP 94. Being transferred out of the ICU. Exam Narrative Exam Narrative: General: Middle-aged female, looks much better; Sitting at the edge of the bed about to work with PT. HEENT: EOMI, MMM Heart: RRR, no m/r/g Lungs: Crackles at B bases Abdomen: soft, nondistended, tender in RLQ Extremities: trace edema BLE's, SCDs Objective Last Vital Signs Temp 37.6 C H 08/25/20 03:40 Pulse 93 H 08/25/20 07:17 Resp 18 08/25/20 07:17 BP 156/69 H 08/25/20 07:17 Pulse Ox 93 08/25/20 07:17 Laboratory Results - last 24 hr 08/25/20 08/25/20 06:10 06:10 WBC 8.19 RBC 3.23 L Hgb 9.0 L Hct 28.1 L MCV 87.0 MCH 27.9 MCHC 32.0 RDW 14.8 H Plt Count 183 MPV 10.3 Immature Gran % 0.6 Neutrophils % 82.1 Lymphocytes % 8.3 Monocytes % 7.8 Eosinophils % 0.7 Basophils % 0.5 Nucleated RBC % 0 Absolute Neutrophils 6.72 H Absolute Lymphocytes 0.68 L Absolute Monocytes 0.64 Absolute Eosinophils 0.06 Absolute Basophils 0.04 Sodium 142 Potassium 3.9 Chloride 109 H Carbon Dioxide 20.7 L Anion Gap 12.3 H BUN 24 H D Creatinine 1.8 H Estimated GFR/1.73 m2 28.07 Glucose 128 H Calcium 7.6 L Magnesium 1.6 L C-Reactive Protein 16.99 H
--- NOTE | 2020-08-25 08:40 | PT.INIE ---
Date of service: 08/25/20 Time of Service: 09:40 PT Notes Visit Reasons: HIPOLITO, UTI Physical Therapy Inpatient Initial Evaluation Date: 08/25/2020 Referring Doctor: Brinda Hill MD PT Orders: PT CONSULT: Limited ability Precautions: Fall. Standard. Activity as tolerated. Patient Profile/Admitting Diagnosis: Nya is a 65-year-old female who presented to the ED on 08/22/2020 with chief complaints of increasing weakness, vomiting, frequent falls, urinary incontinence and decreased p.o. intake. She is diagnosed with acute kidney injury, urinary tract infection, and obstructive uropathy and is status post cystoscopy, right retrograde pyelogram, and right ureteral stent insertion on postoperative day 2. PMHX: Medical History (Updated 08/22/20 @ 21:58 by Randell Zhang) Auditory hallucinations Back pain Calcium kidney stone Chronic constipation COPD (chronic obstructive pulmonary disease) Depressive disorder Diabetes mellitus Fatigue Fracture of orbital floor, left side, sequela GERD (gastroesophageal reflux disease) Glaucoma Headache Hip pain, bilateral Hyperlipidemia Hypertension Insomnia Intracranial aneurysm Knee pain, bilateral Low back pain Lumbar back pain Migraine headache with aura Migraine headache without aura Osteoarthritis Overweight Paranoid schizophrenia Polyarthralgia Tobacco use disorder Umbilical hernia without mention of obstruction or gangrene Urinary frequency Vitamin D deficiency Surgical History History of bilateral tubal ligation Status post coil embolization of cerebral aneurysm Social History/Home Situation: Resident of a alf. Modified independent with 4WW at baseline. Equipment Owned/DME: 4WW Subjective: Agreeable to PT consult. Complains of mild discomfort in her perineal area feeling that something is rubbing down there when she walks. Objective: General Observation: Rowland catheter in place. Telemetry monitoring in place. TEDS on B legs. Mental Status: Alert and able to follow instructions with no difficulty. Pain: Perineal discomfort when ambulating. Nurse aware. ROM: Right Upper Extremity: Shoulder Flexion WFL. Shoulder abduction WFL. Elbow flexion WFL. Wrist flexion WFL. Opening and closing of hand WFL. Left Upper Extremity: Shoulder Flexion WFL. Shoulder abduction WFL. Elbow flexion WFL. Wrist flexion WFL. Opening and closing of hand WFL. Right Lower Extremity: Hip flexion WFL. Hip abduction WFL. Knee flexion WFL. Ankle dorsiflexion WFL. Ankle plantarflexion WFL. Left Lower Extremity: Hip flexion WFL. Hip abduction WFL. Knee flexion WFL. Ankle dorsiflexion WFL. Ankle plantarflexion WFL. Strength: Right Upper Extremity: Shoulder flexors 4/5. Shoulder abductors 4/5. Elbow flexors 4/5. Elbow extensors 4/5. Wild Life Manager strong. Left Upper Extremity: Shoulder flexors 4/5. Shoulder abductors 4/5. Elbow flexors 4/5. Elbow extensors 4/5. Wild Life Manager strong. Right Lower Extremity: Hip flexors 4-/5. Hip abductors 4-/5. Knee flexors 4-/5. Knee extensors 4-/5. Ankle dorsiflexors 4-/5. Ankle plantarflexors 4-/5. Left Lower Extremity: Hip flexors 4-/5. Hip abductors 4-/5. Knee flexors 4-/5. Knee extensors 4-/5. Ankle dorsiflexors 4-/5. Ankle plantarflexors 4-/5. Sensation: Intact as to pain and pressure on bilateral lower extremities. Bed Mobility/Transfers: Rolling minimal assist Supine to sit minimal assist with HOB 45 deg Sit to stand contact-guard assist Stand to sit contact-guard assist Bed to chair contact guard assist Chair to bed contact guard assist Gait: Guided patient through level surface ambulation of about 50 feet using front wheeled walker with full weight bearing requiring contact-guard assist with heel?toe step through gait pattern with complaints of perineal discomfort. Needed to have seated rest x1 due to fatigue. Balance: Static Sitting: Good Dynamic Sitting: Good Static Standing: Fair Dynamic Standing: Fair Special Tests: Mobility Limitations Standardized Measure [facility] 6 clicks Basic Mobility Inpatient Short Form: Raw Score: 18 CMS Score: 47% deficit Informed Consent/Education: Patient instructed in purpose of PT consult and plan of care. Assessment: Nya demonstrates functional mobility decline now requiring the use of a front wheeled walker and assistance of 1 for all mobility ADL performance, impairment in balance, generalized weakness, and increased risk for falls due to admitting diagnosis and postoperative status. Will continue to assess D/C destination depending on mobility level. Patient presents with clinical signs and symptoms consistent with current/admitting diagnoses that have resulted to mobility limitations, gait instability, generalized weakness, and impairment of motor control as demonstrated by the following impairment level findings: 1. Decreased strength to B LE major muscle groups 2. Impaired standing balance 3. Impaired activity tolerance 4. Perineal pain Impairments are contributing to the following functional limitations: 1. Dependent bed mobility skills 2. Increased dependence with transfers 3. Inability to safely ambulate without assistive device and physical assistance 4. Increase completion time for mobility ADL performance 5. Increased fall risk 6. Inability to negotiate steps alone safely Patient is assessed as a 95399 moderate complexity based on the following: History: 65-year-old female with impairment level findings, functional limitations, and past medical history as indicated above Examination: Demonstrable impairment in strength, balance, and mobility level with underlying impairments and functional limitations as documented above Presentation:Evolving Decision Makin moderate complexity Goals: Goals X1 week 1. Supine-Sit independent 2. Sit-Supine independent 3. Sit-Stand independent 4. Stand-Sit independent 5. Bed-Chair independent 6. Chair-Bed independent 7. Independent gait on level surface with use of least restrictive device for at least 300 feet without report of pain nor dyspnea 9. Good static and dynamic standing balance/tolerance Plan of Care/Treatment Plan: 1-2x/day, 7 days/week x 1 week. Plan of care has been reviewed with the COVERAGE SPECIALIST RN providing the service under Physical Therapy direction. Initiate Physical Therapy intervention for strengthening, bed mobility, transfers, gait, stairs, balance training, use of assistive device. DISCHARGE RECOMMENDATIONS: SNF vs. PT TREATMENT CODE/TIME: 17586 x 20 minutes, 56891 x 13 minutes beginning at 9:40 AM. Thank you for the opportunity to participate in the care of this patient. Rina Washington PT, DPT, CLT [facility] [place], [place]
[2020-08-25] MEDS: MAGNESIUM SULFATE 2 GM/50 ML BAG IVPB (09:34)
[2020-08-25] MEDS: cefTRIAXone 2 GM/50 ML BAG IVPB (09:35)
[2020-08-25] MEDS: levoFLOXacin 750 MG/150 ML BAG 100 MG IVPB (09:35)
[2020-08-25] MEDS: Cyanocobalamin 500 MCG TAB 1000 MCG PO (09:36)
[2020-08-25] MEDS: Citalopram 20 MG TAB PO (09:36)
[2020-08-25] MEDS: Aspirin 81 MG CHEW PO (09:36)
[2020-08-25] MEDS: Acetaminophen 325 MG TAB 650 MG PO (11:10)
--- NOTE | 2020-08-25 11:42 | CMPROGNOTE_ITS ---
- If Service Date Differs Date of service: 08/25/20 Time of Service: 11:42 Care Management Progress Note S/O: Nya was sitting up in her chair when CM met with her. She reported that she was doing ok, but she was in pain from her procedure. She had a ureteral stent placed on Sunday. She remains on IV abx for sepsis. Per MD, she will likely have 2-3 more days of IV abx prior to transitioning to oral abx to prepare for discharge. CHERRY discussed her concerns with [facility], which she stated were that some of the staff members are mean. CM called her ULTRASONOGRAPHER rn case management, Sandra Arceo, and left a message asking for her to call and discuss the concerns. Nya didn't go into detail regarding her concern, and is agreeable to return to [facility]. CHERRY explained that her ULTRASONOGRAPHER rn case management can assist her with a change in placement. Nya stated that her brother lives at [facility] also, and she is happy to be able to visit with him. CM will continue to follow. A: 65 year old female admitted to [facility] 08/22/20 for HIPOLITO, UTI P: Nya will return to [facility] when ready per MD. She will follow up with her PCP and plan of care as prescribed. She will transport via private vehicle with Vanesa from [facility] vs [facility]. CM will continue to follow.
[2020-08-25] MEDS: Insulin Aspart 300 UNITS/3 ML PEN SC ×3 (12:20→20:45)
[2020-08-25] MEDS: Normal Saline Flush 10 ML SYR IVP ×4 (14:42→23:15)
--- NOTE | 2020-08-25 16:17 | PTTR_ITS ---
Date of service: 08/25/20 Time of Service: 16:17 PT Notes Visit Reasons: HIPOLITO, UTI Physical Therapy Inpatient Treatment Note The Date: 08/25/2020 Precautions: Fall. Standard. Activity as tolerated. Subjective: Continues to wonder if she will need to go to a long term facility. Still not comfortable in her perineal area, nurse aware. Agreeable to an afternoon PT session. Objective: General Observation: B JUANs on. Catheter remains in place. Mental Status: Got anxious about walking farther from her room Pain: Continues to complain of perineal discomfort Bed Mobility/Transfers: Sit to stand standby assist Stand to sit standby assist Bed to chair standby assist Chair to bed standby assist Gait: Guided patient through level surface ambulation of about 100 feet using front wheeled walker with full weight bearing requiring contact-guard assist with heel?toe step-through gait pattern with complaints of perineal discomfort. No seated rest needed. Did not want to go farther as she states she does not feel safe walking along the elevator hallway. THERA EX: Instructed patient on performing bilateral heel raises and partial knee bends x10 each while holding onto front wheeled walker requiring contact- guard assist for safety. Balance: Static Sitting: Good Dynamic Sitting: Good Static Standing: Fair Dynamic Standing: Fair Assessment: Moved to room 211 this afternoon. Continues to present weakness and instability during walking. Will continue to benefit from general conditioning/strengthening and balance retraining. Nya demonstrates functional mobility decline now requiring the use of a front wheeled walker and assistance of 1 for all mobility ADL performance, impairment in balance, generalized weakness, and increased risk for falls due to admitting diagnosis and postoperative status. Will continue to assess D/C destination depending on mobility level. DISCHARGE RECOMMENDATIONS: SNF vs. HH PT TREATMENT CODE/TIME: 61643 x 25 minutes beginning at 16:17 PM.
[2020-08-25] MEDS: Latanoprost 0.005% 2.5 ML BTL OU (20:33)
[2020-08-25] MEDS: Melatonin 3 MG TAB PO (20:35)
[2020-08-25] MEDS: Gabapentin 100 MG CAP PO (20:35)
[2020-08-25] MEDS: Simvastatin 20 MG TAB PO (20:36)
[2020-08-25] MEDS: Ondansetron 4 MG/2 ML VIAL IVP (23:14)
--- NOTE | 2020-08-26 | DI.US_ITS ---
APPROVED REPORT EXAM: Comprehensive 2D, Doppler, and color-flow Echocardiogram Patient Location: In-Patient Room/Bed: 211 Critical Care Nurse Practitioner: Kelly Sales RDCS (AE) Indications: Bacteremia, r/o endocarditis Other Information Study Quality: Adequate Conclusion Left Ventricle : The left ventricle is normal size. The left ventricular systolic function is normal. The left ventricular ejection fraction is within the normal range. There is normal left ventricular wall thickness. There is normal LV segmental wall motion. The left ventricular diastolic function is normal. LVEF is 55%. Right Ventricle : The right ventricle is normal size. The right ventricular systolic function is norm al. The RVSP is 16.8mmHg. Atria : The left atrium size is normal. The right atrium size is normal. Mitral Valve : The mitral valve is normal in structure. Moderate mitral regurgitation. No evidence of mitral valve stenosis. There is no evidence of mitral valve vegetations. Great Vessels : The ascending aorta is normal in size. Aortic arch is normal in caliber. The aortic r oot is normal in size. IVC is normal in size and collapses >50% with inspiration. See remainder of study for further details. Wall motion Left Ventricle The left ventricle is normal size. The left ventricular systolic function is normal. The left ventric ular ejection fraction is within the normal range. There is normal left ventricular wall thickness. T here is normal LV segmental wall motion. The left ventricular diastolic function is normal. There is no ventricular septal defect visualized. LVEF is 55%. Right Ventricle The right ventricle is normal size. The right ventricular systolic function is normal. The RVSP is 16 .8mmHg. Atria The left atrium size is normal. The right atrium size is normal. The interatrial septum is intact wit h no evidence for an atrial septal defect. Aortic Valve The aortic valve is normal in structure. Aortic valve is trileaflet. There is no aortic valvular sten osis. No aortic regurgitation is present. There is no aortic valvular vegetation. Mitral Valve The mitral valve is normal in structure. No evidence of mitral valve stenosis. Moderate mitral regurg itation. There is no evidence of mitral valve vegetations. Tricuspid Valve The tricuspid valve is normal in structure. There is no tricuspid valve stenosis. Trace tricuspid reg urgitation. There is no tricuspid valve vegetations. Pulmonic Valve The pulmonary valve is normal in structure. There is no pulmonic valvular stenosis. Trace pulmonic re gurgitation. There is no pulmonic valve vegetations. Great Vessels The aortic root is normal in size. The ascending aorta is normal in size. Aortic arch is normal in ca liber. IVC is normal in size and collapses >50% with inspiration. Pericardium Trace pericardial effusion. 2D Dimensions IVSD d PLAX 0.82 cm F: 0.6-1.0 LV Vol A2C d MOD 63.6 mL LVPW d PLAX 0.83 cm F: 0.6 - 1.0 LV Vol A4C d MOD 77.7 mL LVID d PLAX 4.00 cm F: 3.8 - 5.2 LA vol/ BSA A2C s A-L 24.2 mL/m2 LVDs 2.80 cm F: 2.2 - 3.5 LA vol/ BSA A4C s A-L 21.3 mL/m2 Ao Root d 2.67 cm F: 2.7 - 3.3 LA Vol/ BSA Biplane s A-L 22.7 mL/m2 RA Area A4C 11.15 cm2 LA Area A4C s MOD 14.46 cm2 RA Vol/ BSA A4C s A-L 14.3 mL/m2 LA Area A2C s MOD 15.46 cm2 Ao Asc Diam d 2.92 cm F: 2.3 - 3.1 LV EF A4C MOD 55.3 % LV EF Teichholz 57.6 % LV EF A2C MOD 55.3 % LVEF (Weber's) 54.93 % F: 54 - 74 LV EF Biplane MOD 54.9 % LV Volume 56.83 mL F: 46 - 106 SV 39.19 mL LV Volume Index 33.82 mL/m2 F: 29 - 61 SV Index 23.24 mL/m2 LV Vol Biplane MOD 71.3 mL FS 29.85 % M-Mode TAPSE 2.40 cm (M/F) >1.7 LV Diastology MV E' medial 0.077 (>0.07 m/s) E/A Ratio 1.0 LV E/e MED 11.90 (<14) MV E Vmax 0.92 (0.4-1.3 m/s) MV E' lateral 0.070 (>0.1 m/s) MV A Vmax 0.90 (0.4-1.3 m/s) LV E/e LAT 13.15 (<14) MV E/A Ratio 1.01 MV E/E' medial 11.94 MV E/E' lateral 13.19 Aortic Valve LVOT Area 2.96 cm2 AoV Area Vmax 2.53 cm2 LVOT Vmax 1.05 m/s AoV Area/ BSA (Vmax) 1.50 cm2/m2 LVOT Mean Murtaza. 0.67 m/s YODIT Mean Murtaza. 2.45 cm2 LVOT Peak Grad 4.4 mmHg YODIT Mean Murtaza. Index 1.46 cm2/m2 LVOT Mean Grad 2.1 mmHg LVOT VTI 0.206 m LVOT Diam s 1.90 cm AoV Vmax 1.22 m/s Velocity Ratio 0.86 AoV Mean Murtaza. 0.81 m/s AoV Peak Grad 6.0 mmHg LVOT SV 60.94 mL AoV Mean Grad 3.0 mmHg AoV VTI 0.237 m AoV Area VTI 2.57 cm2 AoV Area/ BSA (VTI) 1.52 cm/m2 Mitral Valve MV DT 215 (160-240 msec) MR Vmax 6.38 m/s MV PHT 62 msec MR VTI 2.294 m MV Area PHT 3.53 cm2 MR Peak Grad 162.8 mmHg MV VTI 0.307 m MR Mean Grad 108.1 mmHg MV VTI Annulus 0.316 m MR PISA Radius 0.56 cm MV Area VTI 2.04 (4.0-6.0 cm2) MR EROA 0.11 cm2 MR Aliasing Velocity 0.35 m/s MR PISA 1.99 cm2 Pulmonary Valve PV Vmax 0.96 (0.5-1.5 m/s) RVOT Peak Gr. 1.31 mmHg PV Peak Grad 3.7 mmHg RVOT Mean Gr. 0.75 mmHg PV Mean Grad 1.8 mmHg RVOT VTI 0.123 m PV VTI 0.183 m RVOT Vmax 0.57 m/s Tricuspid Valve TR Peak Grad 13.8 mmHg TR Vmax 1.86 m/s RA Pressure 3.00 mmHg RVSP (TR) 16.8 mmHg
--- NOTE | 2020-08-26 | DI.RAD_ITS ---
EXAM: 2D digital imaging was performed. CLINICAL HISTORY: abdominal distention and pain. COMPARISON: CT CT ABDOMEN PELVIS WO from 08/22/2020 TECHNIQUE: Supine and uprightSupine and Lateral views of the abdomen was performed. FINDINGS: The lung bases are clear. There is a right nephroureteral stent. There is a moderate amount of stoo l in the colon suggesting constipation. No evidence of bowel obstruction. No organomegaly or pneumo peritoneum. IMPRESSION: 1. Moderate amount of stool in the colon suggesting constipation. 2. No evidence of bowel obstruction. DATA REPOSITORY: RADIATION DOSE DELIVERED:
[2020-08-26 02:58] VITALS: BP 136/64; PULSE 82; RESP 18; TEMP 36.8
[2020-08-26] MEDS: Heparin 5,000 UNITS/ML VIAL 5000 UNITS SC ×3 (06:13→21:34)
[2020-08-26 06:56] LABS: Abs Immature Grans 0.08 10^3/uL (0.0-0.06); Absolute Basophil Count 0.02 10^3/uL (0.0-0.2); Absolute Eosinophil Count 0.15 10^3/uL (0.0-0.7); Absolute Lymphocyte Count 0.81 10^3/uL (1.2-3.4); Absolute Monocyte Count 0.53 10^3/uL (0.1-0.8); Basophils % 0.3; Eosinophils % 2.5; HCT 27.7 % (36.0-46.0); HGB 9.1 g/dL (11.2-15.7); Immature Grans % 1.3; Lymphocytes % 13.3; MCH 28.4 pg (27.0-33.0); MCHC 32.9 % (32.0-36.0); MCV 86.6 fL (80-95); MPV 10.1 fL (8.0-11.0); Monocytes % 8.7; Neutrophils % 73.9; Nucleated RBC 0 %; Platelet Count 183 10^3/uL (130-400); RDW 14.7 % (11.7-14.6); RDW-SD 47.5 fL; WBC 6.09 10^3/uL (4.4-10.8)
[2020-08-26 07:17] LABS: BUN 18 mg/dL (7-18); C-Reactive Protein 9.46 mg/dL (0.0-0.3); CREATININE 1.5 mg/dL (0.55-1.02); Calcium 7.6 mg/dL (8.5-10.1); Chloride 109 mmol/L (98-107); Estimated GFR 34.64 (mL/min/1.73m2); Glucose 141 mg/dL (74-106); Magnesium 1.8 mg/dL (1.8-2.4); Sodium 142 mmol/L (136-145)
[2020-08-26 07:29] LABS: Procalcitonin 6.1 ng/mL
[2020-08-26 07:52] VITALS: BP 145/71; PULSE 88; RESP 17; TEMP 37.4; O2SAT 92
[2020-08-26] MEDS: Normal Saline Flush 10 ML SYR IVP ×2 (09:34→18:03)
[2020-08-26] MEDS: Aspirin 81 MG CHEW PO (09:35)
[2020-08-26] MEDS: Cyanocobalamin 500 MCG TAB 1000 MCG PO (09:35)
[2020-08-26] MEDS: Citalopram 20 MG TAB PO (09:35)
[2020-08-26] MEDS: Polyethylene Glycol 3350 17 GM PACKET PO (09:36)
[2020-08-26] MEDS: cefTRIAXone 2 GM/50 ML BAG IVPB (09:37)
[2020-08-26] MEDS: Normal Saline 500 ML 30 ML IV (09:37)
--- NOTE | 2020-08-26 11:05 | PGE_ITS ---
Date of Service Date of service: 08/26/20 Time of Service: 11:06 Assessment and Plan Assessment and plan (1) Sepsis due to Escherichia coli: Status: Acute Assessment and plan: Source: complicated UTI, present on admission. Blood cultures from admission positive for orourke-sensitive E. Coli as is urine. Markedly improved with ceftriaxone, levofloxacin, fluid/pressor support, which she no longer requires, as well as cysto/stent. Continue current antibiotics. Repeat blood cultures negative. Will check echo. Trend CRP/procalcitonin. (2) Sepsis associated hypotension: Status: Resolved Assessment and plan: As above (3) Acute UTI: Status: Acute Assessment and plan: Complicated UTI due to orourke-sensitive E. Coli UTI, present on admission. As above (4) Diarrhea: Status: Acute Assessment and plan: In setting of antibiotic therapy. R/o C. Diff. Start probiotics. Obtain flat/upright abdominal films. (5) HIPOLITO (acute kidney injury): Status: Acute Assessment and plan: In setting of sepsis, hypotension, obstructive uropathy. Improving. Hyperkalemia has resolved. Cr improving off of IVF. Continue treating infection. R ureteral stent in place. Recheck Cr in am (6) Obstructive uropathy: Status: Acute Assessment and plan: S/p cysto/R ureteral stent 08/23/2020 as well as quan catheter placement. Monitor Cr. (7) Toxic metabolic encephalopathy: Status: Resolved Assessment and plan: In setting of sepsis/impending shock. Currently, appears to be back to baseline. (8) Hyperkalemia: Status: Resolved Assessment and plan: In setting of HIPOLITO. Continue to monitor. (9) Acute on chronic anemia: Status: Acute Assessment and plan: No obvious source of acute bleeding to explain this degree of anemia. Small amount of blood in urine is unlikely to explain this. S/p transfusion of 1 unit of pRBCs on 08/23/2020; H/H stable at 9.1/27.7 today. Continue to monitor for bleeding. Replete B12. I suspect a dilutional component. Await hemoccult. (10) Metabolic acidosis: Status: Resolved Assessment and plan: In setting of HIPOLITO/sepsis and aggressive hydration with NS. Resolved. (11) Diabetes mellitus: Status: Chronic Assessment and plan: BGs 91, 159, 184, 190, 137. Continue SSI and carb consistent diet. Qualifiers: Diabetes mellitus type: type 2 Diabetes mellitus [facility] insulin use: without [facility] use Diabetes mellitus complication status: without complication Qualified Code(s): E11.9 - Type 2 diabetes mellitus without complications (12) DVT prophylaxis: Status: Acute Assessment and plan: TEDs/SCDs/SC heparin (13) Discharge planning issues: Status: Acute Assessment and plan: Full code Anticipate discharge home within the next 24-48 hrs. Subjective Subjective Interval history since last seen: Ms Westbrook had diarrhea yesterday. This only happened once, but was profuse and watery. Today, she reports that her abdomen does not feel well. She reports bilateral suprapubic tenderness. Her Bladder scan was being done when I was in the room, but quan catheter appeared to be draining, though evidently she also leaked around it. Denies dizziness, chest pain, shortness of breath, nausea. Afebrile x 24 hrs. Exam Narrative Exam Narrative: General: Middle-aged female, looks overall better;laying comfortably flat in bed, A&Ox3 HEENT: EOMI, MMM Heart: RRR, no m/r/g Lungs: CTAB Abdomen: soft, distended, tender suprapubically Extremities: trace edema BLE's, SCDs Objective Last Vital Signs Temp 37.4 C 08/26/20 07:52 Pulse 88 08/26/20 07:52 Resp 17 08/26/20 07:52 BP 145/71 H 08/26/20 07:52 Pulse Ox 92 08/26/20 07:52 Laboratory Results - last 24 hr 08/26/20 08/26/20 08/26/20 06:16 06:16 06:16 WBC 6.09 RBC 3.20 L Hgb 9.1 L Hct 27.7 L MCV 86.6 MCH 28.4 MCHC 32.9 RDW 14.7 H Plt Count 183 MPV 10.1 Immature Gran % 1.3 Neutrophils % 73.9 Lymphocytes % 13.3 Monocytes % 8.7 Eosinophils % 2.5 Basophils % 0.3 Nucleated RBC % 0 Absolute Neutrophils 4.50 Absolute Lymphocytes 0.81 L Absolute Monocytes 0.53 Absolute Eosinophils 0.15 Absolute Basophils 0.02 Sodium 142 Potassium 4.0 Chloride 109 H Carbon Dioxide 24.0 Anion Gap 9.0 BUN 18 D Creatinine 1.5 H Estimated GFR/1.73 m2 34.64 Glucose 141 H Calcium 7.6 L Magnesium 1.8 C-Reactive Protein 9.46 H Procalcitonin 6.1
[2020-08-26 11:23] VITALS: BP 148/85; PULSE 79; RESP 17; TEMP 37.1; O2SAT 94
[2020-08-26] MEDS: Insulin Aspart 300 UNITS/3 ML PEN SC ×3 (12:49→21:34)
[2020-08-26 15:36] VITALS: BP 152/84; PULSE 83; RESP 18; TEMP 37.1; O2SAT 93
--- NOTE | 2020-08-26 15:39 | PTTR_ITS ---
Date of service: 08/26/20 Time of Service: 09:40 PT Notes Visit Reasons: HIPOLITO, UTI Inpatient Physical Therapy Treatment Note [facility] Date: 08/26/2020 PRECAUTIONS: Fall SUBJECTIVE: Nya is pleasant and agreeable to participating in PT. She is concerned about not being able to reach her brother and sister by phone. She reports feeling flustered being here at the hospital, as it strays from her norm al routine. OBJECTIVE: PAIN: Patient complained of pain at the catheter insertion site with gait training BED MOBILITY/TRANSFERS Sit-supine: S Sit-stand: SBA Stand-sit: SBA Chair-bed: SBA GAIT Assistive Device: FWW Weight bearing: Full Assist: SBA Distance: 40' in a.m.; 30' in p.m. Deviation: Held further gait training in both a.m. and p.m. due to catheter site pain THEREX: Patient was instructed in a LE strengthening program, performed while seated at EOB, as per flow sheet. ASSESSMENT: Patient tolerated session with complaints of catheter site pain, limiting her ability to participate in gait training today. PLAN: Patient would benefit from continued global strengthening and gait training for improved mobility and activity tolerance. TREATMENT CODE/TIME: Session 1: 20 minutes; [id number] (09:40) Session 2: 10 minutes; [id number] (13:05)
--- NOTE | 2020-08-26 16:54 | CHAPLAIN ---
I had met Nya when she was in the ICU, but she didn't seem to remember that, but she did remember that we had tried to reach her sister, Daija, that day, and Nya said she has spoken with Daija. Nya said she had a stent put in, but was feeling comfortable. During our conversation she said she needed to empty her bladder so I asked an [employer] to help her.
[2020-08-26] MEDS: Acetaminophen 325 MG TAB 650 MG PO (18:02)
[2020-08-26] MEDS: Docusate Sodium 100 MG CAP PO (18:03)
[2020-08-26] MEDS: Ondansetron 4 MG/2 ML VIAL IVP (18:03)
--- NOTE | 2020-08-26 18:20 | CMPROGNOTE_ITS ---
- If Service Date Differs Date of service: 08/26/20 Time of Service: 18:20 Care Management Progress Note S/O: Nya was just getting ready to go down for an echo when CM attempted to meet with her. Later, she was resting and CM did not feel it necessary to wake her. Per report, she continues to improve, and was transferred out of the ICU yesterday. CM spoke to Vanesa [place] today, providing an update and coordinating discharge plans. CM will continue to follow. A: 65 year old female admitted to [facility] 08/22/20 for HIPOLITO, UTI P: Nya will return to [place] when ready per MD. She will follow up with her PCP and plan of care as prescribed. She will transport via private vehicle with Vanesa from [place] vs [facility]. CM will continue to follow.
[2020-08-26 19:52] VITALS: BP 168/83; PULSE 80; RESP 17; TEMP 36.6; O2SAT 96
[2020-08-26] MEDS: Simvastatin 20 MG TAB PO (20:45)
[2020-08-26] MEDS: Latanoprost 0.005% 2.5 ML BTL OU (21:33)
[2020-08-26] MEDS: Melatonin 3 MG TAB PO (21:35)
[2020-08-26] MEDS: Gabapentin 100 MG CAP PO (21:35)
[2020-08-26 23:33] VITALS: BP 139/81; PULSE 80; RESP 17; TEMP 36.5; O2SAT 93
[2020-08-27 03:59] VITALS: BP 166/88; PULSE 79; RESP 16; TEMP 37.2; O2SAT 95
[2020-08-27 07:11] LABS: Abs Immature Grans 0.09 10^3/uL (0.0-0.06); Absolute Basophil Count 0.03 10^3/uL (0.0-0.2); Absolute Eosinophil Count 0.16 10^3/uL (0.0-0.7); Absolute Lymphocyte Count 1.14 10^3/uL (1.2-3.4); Absolute Monocyte Count 0.52 10^3/uL (0.1-0.8); Absolute Neutrophil Count 3.52 10^3/uL (1.2-6.7); Basophils % 0.5; Eosinophils % 2.9; HCT 27.8 % (36.0-46.0); HGB 8.9 g/dL (11.2-15.7); Immature Grans % 1.6; Lymphocytes % 20.9; MCH 27.8 pg (27.0-33.0); MCV 86.9 fL (80-95); MPV 9.8 fL (8.0-11.0); Monocytes % 9.5; Neutrophils % 64.6; Nucleated RBC 0 %; Platelet Count 184 10^3/uL (130-400); RDW 14.6 % (11.7-14.6); RDW-SD 46.8 fL; WBC 5.46 10^3/uL (4.4-10.8)
[2020-08-27] MEDS: Heparin 5,000 UNITS/ML VIAL 5000 UNITS SC (07:11)
[2020-08-27 07:23] VITALS: BP 161/79; PULSE 84; RESP 20; TEMP 36.9; O2SAT 92
[2020-08-27 07:27] LABS: Anion Gap 8.4 mmol/L (3-11); BUN 15 mg/dL (7-18); C-Reactive Protein 5.38 mg/dL (0.0-0.3); CO2 25.6 mmol/L (21.0-32.0); CREATININE 1.4 mg/dL (0.55-1.02); Calcium 7.9 mg/dL (8.5-10.1); Chloride 109 mmol/L (98-107); Estimated GFR 37.51 (mL/min/1.73m2); Potassium 4.4 mmol/L (3.5-5.1); Sodium 143 mmol/L (136-145)
[2020-08-27 07:37] LABS: Glucose 149 mg/dL (74-106)
[2020-08-27] MEDS: Insulin Aspart 300 UNITS/3 ML PEN SC ×2 (08:05→11:53)
[2020-08-27] MEDS: Normal Saline Flush 10 ML SYR IVP (08:05)
[2020-08-27] MEDS: levoFLOXacin 750 MG/150 ML BAG 100 MG IVPB (08:05)
[2020-08-27] MEDS: Polyethylene Glycol 3350 17 GM PACKET PO (08:06)
[2020-08-27] MEDS: Cyanocobalamin 500 MCG TAB 1000 MCG PO (08:09)
[2020-08-27] MEDS: Aspirin 81 MG CHEW PO (08:09)
[2020-08-27] MEDS: Citalopram 20 MG TAB PO (08:09)
[2020-08-27] MEDS: cefTRIAXone 2 GM/50 ML BAG IVPB (09:55)
[2020-08-27] MEDS: Acetaminophen 325 MG TAB 650 MG PO (10:32)
[2020-08-27 11:44] VITALS: BP 142/95; PULSE 76; RESP 20; TEMP 36.7; O2SAT 94
--- NOTE | 2020-08-27 11:58 | W.PM.DS.N ---
Date of service: 08/27/20 Time of Service: 11:58 DS: Diagnosis Discharge Diagnosis (1) Sepsis due to Escherichia coli: Status: Resolved (2) Sepsis associated hypotension: Status: Resolved (3) Acute UTI: Status: Acute Asessment and Plan: Due to E. Coli, present on admission (4) Diarrhea: Status: Resolved (5) HIPOLITO (acute kidney injury): Status: Resolved (6) Obstructive uropathy: Status: Acute (7) Toxic metabolic encephalopathy: Status: Resolved (8) Hyperkalemia: Status: Resolved (9) Acute on chronic anemia: Status: Acute (10) Metabolic acidosis: Status: Resolved (11) Constipation: Status: Resolved (12) Diabetes mellitus: Status: Chronic (13) COVID-19 ruled out by laboratory testing: Status: Ruled-out Discharge Plan Disposition Patient Disposition: [facility] Condition: Stable Discharge Details Reason For Visit: HIPOLITO, UTI Admit Date/Time: 08/22/20 21:48 Admit Provider: Randell Zhang Attending Provider: Randell Zhang Primary Care Provider: Tosin Lundberg Hospital Course Hospital Course: Ms Westbrook is a 65 year old female with PMHx of NIDDM2, HTN, hyperlipidemia, paranoid schizophrenia, who was admitted to [facility] hospitalist service on 08/22/20 with sepsis due to UTI, HIPOLITO, and toxic metabolic encephalopathy. The patient did have evidence of dilation of right collecting system picture on CT of her abdomen without evidence of stone or physical obstruction. As she had become hypotensive and poorly responsive to IVF, she required transfer to ICU on the day of admission for vasopressor therapy and went for emergent cystoscopy and right ureteral stent placement. Her antibiotic regimen was high dose ceftriaxone as well as levofloxacin. The patient defervesced and went off of vasopressors by on 08/24/20, and was transferred out of the ICU on 08/25/20. Her urine and blood cultures grew orourke-sensitive E. Coli. Repeat blood cultures were negative. The patient's mental status stabilized and kidney function returned to her baseline. She is able to be discharged back to [place] today to complete a 14 day course of antibiotics (9 more days of levofloxacin). Quan catheter has been removed. She will need to follow up with Dr Kruse in the clinic. Dr Kruse would like for the ureteral stent to remain in place for 2 weeks. The patient is stable for discharge back to [place] and is agreeable. Care for patient as well as completion of her discharge summary on day of discharge took 45 minutes. Home Meds and New Rx's Prescriptions: New cyanocobalamin (vitamin B-12) [Vitamin B-12] 500 mcg Tablet 1,000 mcg PO DAILY Qty: 60 RF: 0 levofloxacin 750 mg tablet 750 mg PO Q48H Qty: 4 RF: 0 docusate sodium 100 mg capsule 100 mg PO BID Qty: 60 RF: 0 bisacodyl [Dulcolax (bisacodyl)] 5 mg tablet,delayed release (DR/EC) 10 mg PO .Q72H prn Qty: 7 RF: 0 Continued aspirin 81 mg tablet 81 mg PO DAILY RF: 0 calcium carbonate-vitamin D3 400-133.3 mg-unit tablet 1 tab PO DAILY RF: 0 lisinopril 2.5 mg tablet 2.5 mg PO DAILY RF: 0 alendronate 70 mg tablet 70 mg PO QWEEK RF: 0 gabapentin 100 mg capsule 200 mg PO .COMPLEX Qty: 180 RF: 3 clonazepam 0.5 mg tablet 0.25 mg PO BID RF: 0 clozapine 100 mg tablet 200 mg PO QHS RF: 0 simvastatin 20 mg Tablet 20 mg PO ONCE RF: 0 citalopram 20 mg Tablet 20 mg PO ONCE RF: 0 latanoprost 0.005 % Drops 1 drp .QHS RF: 0 acetaminophen 500 mg Tablet 1,000 mg PO BID PRNRF: 0 nicotine [Nicoderm CQ] 7 mg/24 hr Patch 24 Hour 2 mg transdermal Q24H RF: 0 nystatin 100,000 unit/gram Powder 1 applic TOPICAL PRN PRNRF: 0 polyethylene glycol 3350 [Miralax] 17 gram/dose Powder 17 g PO DAILY RF: 0 melatonin 3 mg Tablet 3 mg PO HS RF: 0 Discharge Instructions Instructions: Levofloxacin (By mouth), Urinary Tract Infection in Women (DC), Sepsis (DC) Additional Instructions: Finish your antibiotics as prescribed. Your next dose of levofloxacin is in am of 08/29/2020. Return to the hospital with any fever, bleeding, chest pain, or shortness of breath. Stand Alone Forms: Nursing Discharge Form Referrals: Ambrocio Kruse MD [ [facility] STAFF PHYSICIAN] - Tosin Lundberg [Primary Care Provider] - Activity:: Activity as Tolerated Equipment/Supplies:: No Equipment Needed Diet:: As Tolerated Discharge Orders Discharge Orders: Discharge Order (Routine); Ordered 08/27/20 Ordered By: Brinda Hill DS: Summary Time Spent with Patient providing and/or coordinating discharge services: Greater than 30 minutes Status at Discharge Functional status at discharge: independent ambulation Overall status at discharge: patient is progressing back to baseline Mental Status: mental status grossly normal Speech and Movement: speech and movement normal Mood: congruent mood Affect: normal affect Exam Narrative Exam Narrative: General: Middle-aged female, A&Ox3, looks even better HEENT: EOMI, MMM Heart: RRR, no m/r/g Lungs: CTAB Abdomen: soft, less distended, nontender Extremities: trace edema BLE's, SCDs Psych Mental Status: mental status grossly normal Speech and Movement: speech and movement normal Mood: congruent mood Affect: normal affect DS: Data Vitals/I&O Vitals and I&O: Vital Signs Temperature 36.7 C 08/27/20 11:44 Temperature Source Tympanic 08/27/20 11:44 Pulse 76 08/27/20 11:44 Pulse Rhythm Regular 08/27/20 10:20 Pulse 122 H 08/25/20 10:12 Respiratory Rate 20 08/27/20 11:44 Respiratory Effort Non-Labored 08/27/20 10:20 Respiratory Depth Normal 08/27/20 10:20 Respiratory Pattern Normal 08/27/20 10:20 Blood Pressure 142/95 H 08/27/20 11:44 Blood Pressure Mean 94 08/25/20 10:12 Blood Pressure Position Supine 08/25/20 09:19 Pulse Oximetry 94 08/27/20 11:44 Respiratory End-tidal CO2 30 08/23/20 14:32 Oxygen Delivery Method Room Air 08/27/20 11:44 Oxygen Flow Rate 0 08/27/20 11:44 Pain Level 0 08/27/20 11:44 Comment 08/26/20 19:52 Intake & Output 08/26/20 08/26/20 08/27/20 11:59 23:59 11:59 Intake Total 567.5 / 1027.5 460 / 1027.5 120 / 120 Output Total 525 / 1175 650 / 1175 550 / 550 Balance 42.5 / -147.5 -190 / -147.5 -430 / -430 Weight 64.1 kg 65.9 kg Intake: IV 87.5 / 97.5 10 / 97.5 Oral 480 / 930 450 / 930 120 / 120 Output: Urine 525 / 1175 650 / 1175 550 / 550 Other: Urine Color Pale Yellow Yellow Yellow Urine Appearance Clear Clear Clear Urine Odor Normal Normal Comment Pt had 108mL urine remaining in bladder with quan in place. I verified that the pt had a hysterectomy via the abdominal CT scan report. Pt had copious leaking into brief around 10:00. Pt urinated in toilet; no hat present at this time. Emesis Description None Voiding Methods Bedside Commode Toilet Data Completed and Pending Completed studies during hospitalization [Text1]: CT abdomen/pelvis: 1. Mild bilateral perinephric edema. No evidence of stone or obstruction. Infection cannot be excluded. Please correlate clinically. 2. Stable mild thickening of the wall of the urinary bladder. 3. Constipation. Venous doppler BLE's: No evidence of deep venous thrombosis of the right or left lower extremity. XR chest: Portable [place] 0824 hours. The heart is at the upper limits of normal in size. There are questionable areas of mildly increased pulmonary interstitial prominence bilaterally in comparison with prior radiographs of August 07. Possibility of early CHF or patchy multifocal pneumonitis should be considered. No gross pleural effusion on this frontal film. Additional evaluation with PA and lateral chest or chest CT may be considered if clinically appropriate. XR abdomen flat/upright: 1. Moderate amount of stool in the colon suggesting constipation. 2. No evidence of bowel obstruction. Echo; Left Ventricle : The left ventricle is normal size. The left ventricular systolic function is normal. The left ventricular ejection fraction is within the normal range. There is normal left ventricular wall thickness. There is normal LV segmental wall motion. The left ventricular diastolic function is normal. LVEF is 55%. Right Ventricle : The right ventricle is normal size. The right ventricular systolic function is normal. The RVSP is 16.8mmHg. Atria : The left atrium size is normal. The right atrium size is normal. Mitral Valve : The mitral valve is normal in structure. Moderate mitral regurgitation. No evidence of mitral valve stenosis. There is no evidence of mitral valve vegetations. Great Vessels : The ascending aorta is normal in size. Aortic arch is normal in caliber. The aortic root is normal in size. IVC is normal in size and collapses >50% with inspiration. See remainder of study for further details. Labs on day of discharge: Labs from last 24 hours 08/27/20 08/27/20 06:50 06:50 WBC 5.46 RBC 3.20 L Hgb 8.9 L Hct 27.8 L MCV 86.9 MCH 27.8 MCHC 32.0 RDW 14.6 Plt Count 184 MPV 9.8 Immature Gran % 1.6 Neutrophils % 64.6 Lymphocytes % 20.9 Monocytes % 9.5 Eosinophils % 2.9 Basophils % 0.5 Nucleated RBC % 0 Absolute Neutrophils 3.52 Absolute Lymphocytes 1.14 L Absolute Monocytes 0.52 Absolute Eosinophils 0.16 Absolute Basophils 0.03 Sodium 143 Potassium 4.4 Chloride 109 H Carbon Dioxide 25.6 Anion Gap 8.4 BUN 15 Creatinine 1.4 H Estimated GFR/1.73 m2 37.51 Glucose 149 H Calcium 7.9 L C-Reactive Protein 5.38 H Preliminary micro results at discharge 08/25/20 08:34 Blood Culture - Preliminary Blood NO GROWTH 48 HOURS 08/25/20 08:22 Blood Culture - Preliminary Blood NO GROWTH 48 HOURS 08/22/20 20:39 Blood Culture - Preliminary Blood NO GROWTH 96 HOURS 08/22/20 20:50 Blood Culture - Preliminary Blood Escherichia coli [facility] Medical History (Updated 08/27/20 @ 13:24 by Brinda Hill MD) Auditory hallucinations Back pain Calcium kidney stone Chronic constipation COPD (chronic obstructive pulmonary disease) Depressive disorder Diabetes mellitus Fatigue Fracture of orbital floor, left side, sequela GERD (gastroesophageal reflux disease) Glaucoma Headache Hip pain, bilateral Hyperlipidemia Hypertension Insomnia Intracranial aneurysm Knee pain, bilateral Low back pain Lumbar back pain Migraine headache with aura Migraine headache without aura Osteoarthritis Overweight Paranoid schizophrenia Polyarthralgia Tobacco use disorder Umbilical hernia without mention of obstruction or gangrene Urinary frequency Vitamin D deficiency Surgical History History of bilateral tubal ligation Status post coil embolization of cerebral aneurysm Family History Father Colon cancer Renal cancer Sister Breast cancer Mother Abdominal aortic aneurysm Brother Psychiatric illness Social History Smoking/Tobacco Use Status: Current every day Tobacco Type: cigarettes Smoking risk assessment performed?: Yes Alcohol Intake: former Drug use: Current Sobriety Substance use type: does not use Do you feel safe at home: Yes Do you feel safe in your relationship?: Yes
--- NOTE | 2020-08-27 12:10 | PT.INTREAT ---
Date of service: 08/27/20 Time of Service: 11:35 PT Notes Visit Reasons: HIPOLITO, UTI Inpatient Physical Therapy Treatment Note [facility] Date: 08/27/2020 PRECAUTIONS: Fall SUBJECTIVE: Nya is pleasant and agreeable to participating in PT. She is happy that she will be returning to [place] later today. She reports that she is still hearing voices, and that they are not nice to her. She reports that she has been hearing voices for many years, and that she is receiving Mental Health support, but does not feel that it is helping. OBJECTIVE: PAIN: No c/o pain BED MOBILITY/TRANSFERS Supine-sit: I Sit-stand: I Stand-sit: I GAIT Assistive Device: FWW Weight bearing: Full Assist: S Distance: 10' + 75' + 125' Deviation: No deviations noted STAIRS: Up/down 3x4 and 2x6 using B rails and a step-over pattern with supervision TOILETING: Patient toileted with supervision ASSESSMENT: Patient tolerated session well with minimal complaint of fatigue following session. She demonstrates independence with transfers and bed mobility at this time. PLAN: Discharge back to [facility] later today, no PT support services recommended at this time. TREATMENT CODE/TIME: 20 minutes; 41888 (11:35)
--- NOTE | 2020-08-27 14:51 | INDS_ITS ---
Date of service: 08/27/20 Time of Service: 14:53 PT Notes Visit Reasons: HIPOLITO, UTI Physical Therapy Inpatient Discharge Summary Date: 08/27/2020 Date of service: 08/25/2020 through 08/27/2020 This is a clinical summary of care provided on the duration of dates listed above. No charge was made in the completion of this documentation. Referring Doctor: Brinda Hill MD PT Orders: PT CONSULT: Limited ability Precautions: Fall. Standard. Activity as tolerated. Patient Profile/Admitting Diagnosis: Nya is a 65-year-old female who presented to the ED on 08/22/2020 with chief complaints of increasing weakness, vomiting, frequent falls, urinary incontinence and decreased p.o. intake. She is diagnosed with acute kidney injury, urinary tract infection, and obstructive uropathy and is status post cystoscopy, right retrograde pyelogram, and right ureteral stent insertion on postoperative day 2. PMHX: Medical History (Updated 08/22/20 @ 21:58 by Randell Zhang) Auditory hallucinations Back pain Calcium kidney stone Chronic constipation COPD (chronic obstructive pulmonary disease) Depressive disorder Diabetes mellitus Fatigue Fracture of orbital floor, left side, sequela GERD (gastroesophageal reflux disease) Glaucoma Headache Hip pain, bilateral Hyperlipidemia Hypertension Insomnia Intracranial aneurysm Knee pain, bilateral Low back pain Lumbar back pain Migraine headache with aura Migraine headache without aura Osteoarthritis Overweight Paranoid schizophrenia Polyarthralgia Tobacco use disorder Umbilical hernia without mention of obstruction or gangrene Urinary frequency Vitamin D deficiency Surgical History History of bilateral tubal ligation Status post coil embolization of cerebral aneurysm Social History/Home Situation: Resident of a long term. Modified independent with 4WW at baseline. Equipment Owned/DME: 4WW Subjective: NT. See most recent [employer] notes. Objective: General Observation: NT. See most recent [employer] notes. Mental Status: NT. See most recent [employer] notes. Pain: NT. See most recent [employer] notes. ROM: Right Upper Extremity: Shoulder Flexion WFL. Shoulder abduction WFL. Elbow flexion WFL. Wrist flexion WFL. Opening and closing of hand WFL. Left Upper Extremity: Shoulder Flexion WFL. Shoulder abduction WFL. Elbow flexion WFL. Wrist flexion WFL. Opening and closing of hand WFL. Right Lower Extremity: Hip flexion WFL. Hip abduction WFL. Knee flexion WFL. An kle dorsiflexion WFL. Ankle plantarflexion WFL. Left Lower Extremity: Hip flexion WFL. Hip abduction WFL. Knee flexion WFL. Ankle dorsiflexion WFL. Ankle plantarflexion WFL. Strength: Right Upper Extremity: Shoulder flexors 4/5. Shoulder abductors 4/5. Elbow flexors 4/5. Elbow extensors 4/5. Cream Dipper strong. Left Upper Extremity: Shoulder flexors 4/5. Shoulder abductors 4/5. Elbow flexors 4/5. Elbow extensors 4/5. Cream Dipper strong. Right Lower Extremity: Hip flexors 4-/5. Hip abductors 4-/5. Knee flexors 4-/5. Knee extensors 4-/5. Ankle dorsiflexors 4-/5. Ankle plantarflexors 4-/5. Left Lower Extremity: Hip flexors 4-/5. Hip abductors 4-/5. Knee flexors 4-/5. Knee extensors 4-/5. Ankle dorsiflexors 4-/5. Ankle plantarflexors 4-/5. Sensation: Intact as to pain and pressure on bilateral lower extremities. Bed Mobility/Transfers: Rolling independent Supine to sit independent Sit to stand independent Stand to sit independent Bed to chair independent Chair to bed independent Gait: Up to 125 feet on level surface ambulation using front wheel walker with full weightbearing requiring only supervision with no path deviation. Able to tolerate up-and-down three 4 inch steps and two 6 inch steps while holding onto bilateral weight with step over step pattern requiring supervision. Balance: Static Sitting: Good Dynamic Sitting: Good Static Standing: Fair Dynamic Standing: Fair Assessment: Nya continues to demonstrate functional mobility decline now requiring the use of a front wheeled walker and assistance of 1 for all mobility ADL performance, impairment in balance, generalized weakness, and increased risk for falls due to admitting diagnosis and postoperative status. Will continue to assess D/C destination depending on mobility level. Patient continues to present with clinical signs and symptoms consistent with current/admitting diagnoses that have resulted to mobility limitations, gait instability, generalized weakness, and impairment of motor control as demonstrated by the following impairment level findings: 1. Decreased strength to B LE major muscle groups 2. Impaired standing balance 3. Impaired activity tolerance 4. Perineal pain Impairments are continuing to contributing to the following functional limitations: 1. Inability to safely ambulate without assistive device 2. Increase completion time for mobility ADL performance 3. Increased fall risk 4. Inability to negotiate steps alone safely Goals: Goals X1 week 1. Supine-Sit independent MET 2. Sit-Supine independent MET 3. Sit-Stand independent MET 4. Stand-Sit independent MET 5. Bed-Chair independent NOT MET 6. Chair-Bed independent NOT MET 7. Independent gait on level surface with use of least restrictive device for at least 300 feet without report of pain nor dyspnea NOT MET 9. Good static and dynamic standing balance/tolerance NOT MET DISCHARGE RECOMMENDATIONS: SNF vs. PT TREATMENT CODE/TIME: NC Thank you for the opportunity to participate in the care of this patient. Rina Washington PT, DPT, CLT [facility] [place], [place]
--- NOTE | 2020-08-27 16:18 | CMDISCH_ITS ---
- If Service Date Differs Date of service: 08/27/20 Time of Service: 16:18 LACE Index Scoring Tool - Questions: Length of Stay (in days): 4 - 6 Acuity (Admit via E.D.?): Yes Comorbidities: Mild Liver/Renal Disease E.D. Visits: 3 - Answers: Total Score: 12 Risk of Readmission: High Risk Care Management Discharge Reason for Hospitalization: HIPOLITO, UTI Discharge Plan: Nya will return to [facility] today with no additional services. She will transport via [facility] private vehicle, as [facility] staff was not able to pick her up. CM informed [facility] of her discharge. She will follow up with her PCP and discharge plan of care. She is happy to return home. Patient/Family Education Needs: Review discharge instructions regarding activity levels and medications, discussion of self care needs and goals of care. - MH Services (Omit if N/A) Current MH Services: [facility] OPERATOR
== END 2020-08-27 14:03 | disposition designated cancer center or children's hospital (05) | DRG 853 ==
LOC: ER 22:35 → MS 22:43 → ICU 08-23 12:04 → MS 08-25 12:05
PROVIDERS: Internal Medicine; Urology; Admitting Provider Family Medicine; Emergency Provider Registered Nurse Emergency; PCP Nurse Practitioner Family; Visit Provider Family Medicine
PROC: 0T768DZ Dilation of Right Ureter with Intraluminal Device, Via Natural or Artificial Opening Endoscopic (ICD-10-PCS; CPT 52332; principal; 2020-08-23 11:30)
DX: A41.51 Sepsis due to Escherichia coli [E. coli] (principal); G92 Toxic encephalopathy; N17.9 Acute kidney failure, unspecified; F20.0 Paranoid schizophrenia; N39.0 Urinary tract infection, site not specified; N13.9 Obstructive and reflux uropathy, unspecified; E87.5 Hyperkalemia; Z20.822 Contact with and (suspected) exposure to COVID-19; E86.0 Dehydration; B96.1 Klebsiella pneumoniae [K. pneumoniae] as the cause of diseases classified elsewhere; K59.09 Other constipation; J44.9 Chronic obstructive pulmonary disease, unspecified; F32.9 Major depressive disorder, single episode, unspecified; E11.9 Type 2 diabetes mellitus without complications; K21.9 Gastro-esophageal reflux disease without esophagitis; H40.9 Unspecified glaucoma; E78.5 Hyperlipidemia, unspecified; I10 Essential (primary) hypertension; G47.00 Insomnia, unspecified; M54.5 Low back pain; M19.90 Unspecified osteoarthritis, unspecified site; F17.210 Nicotine dependence, cigarettes, uncomplicated; E55.9 Vitamin D deficiency, unspecified; D64.9 Anemia, unspecified; B96.20 Unspecified Escherichia coli [E. coli] as the cause of diseases classified elsewhere; R19.7 Diarrhea, unspecified
CPT/HCPCS: 52332; 36415; 80048; 80053; 82805; 84145; 86850; 86900; 86901; 86920; 87040; 87077; 93306; 96361; 96365; 97110; 97162; 97530; 99221; 99223; 99232; 99233; 99239; 99252; 99285; 99291; 71045; 74019; 74176; 74420; 81003; 81015; 82607; 82728; 82746; 83540; 83550; 83605; 83735; 85014; 85018; 85025; 86140; 87086; 87186; 93970; J0131; J0696; J1644; J1956; J2001; J2250; J2405; J2704; P9016; Q9967

== ENCOUNTER 2020-09-01 09:34 | Emergency (ER) | payer MEDICARE, MEDICAID, SELFPAY ==
[2020-09-01] VITALS (42 sets, daily range): BP systolic 114–161; BP diastolic 53–70; PULSE 80–125; RESP 14–23; TEMP 36.3–37.7; O2SAT 89–100
--- NOTE | 2020-09-01 09:30 | RT.EKG_ITS ---
APPROVED REPORT Exam: Resting ECG Patient Location: E HR:93 bpm ECG Measurements Heart Rate 93 AXIS MS 166 P 67 QRSd 80 QRS -24 QT 338 T 49 QTc 420 Conclusion Sinus rhythm...normal P axis, V-rate 60- 99 Low voltage, precordial leads...precordial leads <1.0mV I have reviewed and interpreted ECG and agree with software generated interpretation.
--- NOTE | 2020-09-01 10:14 | DI.RAD_ITS ---
EXAM: XR CHEST 1V IN DI DEPT CLINICAL HISTORY: sob TECHNIQUE: 2D digital imaging was performed. COMPARISON: CR,XR XR CHEST 1V IN DI DEPT from 08/07/2020 FINDINGS: MEDIASTINUM: Normal. HEART: Normal. PULMONARY VASCULATURE: Normal. LUNGS: Clear. PLEURAL SPACE: No pleural effusion or pneumothorax. BONE:Within normal limits for the patient's age. OTHER FINDINGS:Normal. IMPRESSION: No acute pulmonary findings. DATA REPOSITORY: RADIATION DOSE DELIVERED:
--- NOTE | 2020-09-01 10:17 | ED.GENADUL_ITS ---
Discharge Plan Disposition Patient Disposition: OTHER Condition: Stable Discharge Details Clinical Impression: UTI (urinary tract infection) Primary Care Provider: Tosin Lundberg ED Provider: Usman Byrd [place] Meds and New Rx's Prescriptions: Continued aspirin 81 mg tablet 81 mg PO DAILY RF: 0 calcium carbonate-vitamin D3 400-133.3 mg-unit tablet 1 tab PO DAILY RF: 0 lisinopril 2.5 mg tablet 2.5 mg PO DAILY RF: 0 alendronate 70 mg tablet 70 mg PO QWEEK RF: 0 clonazepam 0.5 mg tablet 0.25 mg PO BID RF: 0 clozapine 100 mg tablet 200 mg PO QHS RF: 0 simvastatin 20 mg Tablet 20 mg PO HS RF: 0 citalopram 20 mg Tablet 20 mg PO HS RF: 0 cyanocobalamin (vitamin B-12) [Vitamin B-12] 500 mcg Tablet 1,000 mcg PO DAILY Qty: 60 RF: 0 levofloxacin 750 mg tablet 750 mg PO Q48H Qty: 4 RF: 0 docusate sodium 100 mg capsule 100 mg PO BID Qty: 60 RF: 0 bisacodyl [Dulcolax (bisacodyl)] 5 mg tablet,delayed release (DR/EC) 10 mg PO .Q72H prn Qty: 7 RF: 0 naproxen 375 mg tablet 375 mg PO BID RF: 0 clonazepam 0.5 mg tablet 0.5 mg PO PRN PRNRF: 0 olanzapine 2.5 mg Tablet 2.5 mg PO Q8H PRNRF: 0 gabapentin 100 mg Capsule 100 mg PO DAILY PRNRF: 0 cholecalciferol (vitamin D3) [Vitamin D3] 25 mcg (1,000 unit) capsule 1,000 mcg PO BID RF: 0 cyclobenzaprine 5 mg Tablet 5 mg PO PRN PRNRF: 0 metformin 750 mg tablet extended release 24 hr 750 mg PO BID RF: 0 clozapine 25 mg tablet,disintegrating 25 mg PO DAILY RF: 0 acetylcysteine [NAC] 600 mg capsule 1,200 mg PO BID RF: 0 Combigan 0.2-0.5 % Drops 1 drp ophthalmic (eye) HS RF: 0 gabapentin 100 mg capsule 200 mg PO HS RF: 0 latanoprost 0.005 % Drops 1 drp ophthalmic (eye) .QHS RF: 0 nicotine [Nicoderm CQ] 7 mg/24 hr Patch 24 Hour 7 mg transdermal Q24H RF: 0 polyethylene glycol 3350 [Miralax] 17 gram/dose Powder 17 g PO DAILY RF: 0 melatonin 3 mg Tablet 3 mg PO HS RF: 0 Discharge Instructions Instructions: Urinary Tract Infection in Women (ED) Additional Instructions: Work-up in the ER does not reveal any obvious emergent process. It would appear as though you still have a UTI but is improving when compared to your recent ad mission to our facility. You are being discharged back to [place]. I have reached out to your primary care provider office, they are aware of your ER visit today and you have an outpatient appointment with them on the . Continue all of your medications including Levaquin as directed. Please watch for new or worsening symptoms and return to the ER for any concerns. Discharge Data Discharge Date/Time-TO BE ENTERED AT DEPARTURE: 09/01/20 15:47 Medical Decision Making <BERNADINE Monroe - Last Filed: 09/01/20 15:07> This is a 65-year-old female with possible history that includes diabetes, hypertension hyperlipidemia, paranoid schizophrenia, admitted to our facility on 08-22-20 subsequently diagnosed with urosepsis, had a cystoscopy and a right ureteral stent placed. Patient subsequently discharged on 08-27-20, 9 subsequent days of oral Levaquin, and to follow-up with Dr. Kruse as an outpatient. She presents today via EMS stating generally not feeling well. Multiple different complaints to EMS, scientific associate, and me. She presents with a low-grade fever, O2 sats were noted to be 89. Will initially start a septic work-up, a single troponin and EKG, and obtain head CT given she tells me she fell last night. She was initially placed on 2 L nasal cannula oxygen however later this was decreased to 1 L and then subsequently taken off completely, O2 sats remained in the high 90s on room air. Patient given 1 g p.o. Tylenol, 2 L IV fluid, and will initiate IV Rocephin as her urine sample appeared to be pansensitive during her recent hospitalization. Initial laboratory values are unremarkable for obvious emergent process. Initial urinalysis appears contaminated, given her recent urosepsis I have requested a straight cath sample be obtained. CT imaging of the brain and chest x-ray read by radiology is unremarkable. Patient able to tolerate p.o. intake without difficulty, was ambulatory using a walker without difficulty. Repeat catheterized urine reveals moderate blood, small leuk esterase, 20-50 red cells, 10-20 white cells, few epithelial cells, few bacteria. Culture now pending. Case was discussed with Dr. Pelaez who personally saw the patient, please see her note. Overall work-up reveals a UTI however improved when compared to her recent urosepsis. Today she appears well, nontoxic, no signs of sepsis. I reached out to her primary care office however unfortunately there is no provider in the office. I was able to speak with EARLE Rust. I made Yocasta aware of the patient's visit today, disposition back to her facility, to continue her Levaquin, and it turns out the patient has an appointment as an outpatient with her primary care provider on the , 1 day after she finishes her Levaquin. She is also scheduled to be seen by Dr. Kruse as an outpatient. Patient is comfortable this plan and has no additional questions or concerns. She was encouraged to return to the ER for new or worsening symptoms. ECG Data Attestation: I personally reviewed and interpreted this ECG (s) as follows: Interpretation: Please see official report by Dr. Pelaez. Sinus rhythm, ventricular rate of 93., No STEMI. <Asmita Pelaez, DO - Last Filed: 09/02/20 10:07> I have seen and examined this patient. I discussed case and reviewed note with the PA and I agree with plan and note as documented. 65-year-old female with a history of paranoid schizophrenia, COPD, diabetes, and hypertension presents from [place] for generalized weakness, decreased appetite and dizziness. Patient admitted here last month and discharged a few days ago for urosepsis w/ R ureteral stent placement sent home on PO levaquin. Low-grade temperature on arrival at 99.9. There was also report that she complained of shortness of breath with oxygen saturation high 80s to low 90s and patient determined to be a PUI. Rapid COVID negative. She denies any shortness of breath or cough to me. Patient placed on 2 L of nasal cannula oxygen increased to high 90s. Differential diagnosis includes dehydration, recurrent UTI, electrolyte abnormality, arrhythmia. Plan is for screening labs, repeat urinalysis, IV fluids and continue to monitor. If patient labs worsening and unable to ambulate, will plan for admission for observation. If patient's labs improving and she is able to eat and ambulate, can consider discharge home. HPI <BERNADINE oMnroe - Last Filed: 09/01/20 15:07> General Mode of arrival: EMS . Date/Time Provider Initiated Documentation: 09/01/20 09:44 . Limitations to Documentation: no limitations . Information obtained by: patient . HPI Narrative: This is a 65-year-old female with a past medical history that includes diabetes, hypertension, hyperlipid emia, paranoid schizophrenia, admitted to our facility on 08-22-20 with sepsis due to UTI, HIPOLITO, and toxic metabolic encephalopathy. Patient subsequently transferred to ICU for hypotension. Patient was evaluated by urology, Dr. Kruse, emergent cystoscopy and right ureteral stent placement. She was on ceftriaxone and Levaquin. Urine culture and blood cultures grew pansensitive E. coli. She was discharged on 08-27-20 back to [place]. Patient presents today via EMS for multiple complaints. She first tells me that she had a mechanical fall last night, denies striking her head or any obvious trauma. She told EMS that she was nauseous and had left danielle pain but she denies any of this to me. Patient states that she has mild shortness of breath but denies any cough. She tells me that she feels sick and shaky. She denies any headache, visual changes, neck pain, chest pain, abdominal pain, dysuria, hematuria, numbness, tingling, weakness. Plan upon discharge was to leave the stent for 2 weeks, will follow up in the clinic with Dr. Kruse. Also discharged on a course of Levaquin, p.o., total of 14-day course, will finish on 09-05-20. Related Data Home Medications Medication Instructions Recorded Confirmed latanoprost 1 drp OPHTHALMIC (EYE) .QHS 12/17/18 09/01/20 aspirin 81 mg tablet 81 mg PO DAILY 07/14/19 09/01/20 clonazepam 0.5 mg tablet 0.25 mg PO BID tab 07/14/19 09/01/20 clozapine 100 mg tablet 200 mg PO QHS tab 07/14/19 09/01/20 nicotine [Nicoderm CQ] 7 mg TRANSDERMAL Q24H 08/28/19 09/01/20 polyethylene glycol 3350 [Miralax] 17 g PO DAILY 08/28/19 09/01/20 melatonin 3 mg PO HS 08/30/19 09/01/20 alendronate 70 mg tablet 70 mg PO QWEEK 06/08/20 09/01/20 calcium carbonate-vitamin D3 400 1 tab PO DAILY tab 06/08/20 09/01/20 mg -133.3 unit tablet lisinopril 2.5 mg tablet 2.5 mg PO DAILY 06/08/20 09/01/20 citalopram 20 mg PO HS 08/07/20 09/01/20 simvastatin 20 mg PO HS 08/07/20 09/01/20 bisacodyl [Dulcolax (bisacodyl)] 10 mg PO .Q72H prn #7 tab 08/27/20 09/01/20 cyanocobalamin (vitamin B-12) 1,000 mcg PO DAILY #60 tab 08/27/20 09/01/20 [Vitamin B-12] docusate sodium 100 mg PO BID #60 cap 08/27/20 09/01/20 levofloxacin 750 mg PO Q48H #4 tab 08/27/20 09/01/20 Combigan 1 drp OPHTHALMIC (EYE) HS 09/01/20 09/01/20 acetylcysteine [NAC] 1,200 mg PO BID 09/01/20 09/01/20 cholecalciferol (vitamin D3) 1,000 mcg PO BID 09/01/20 09/01/20 [Vitamin D3] clonazepam 0.5 mg PO PRN PRN 09/01/20 09/01/20 clozapine 25 mg PO DAILY 09/01/20 09/01/20 cyclobenzaprine 5 mg PO PRN PRN 09/01/20 09/01/20 gabapentin 100 mg PO DAILY PRN 09/01/20 09/01/20 gabapentin 200 mg PO HS 09/01/20 09/01/20 metformin 750 mg PO BID 09/01/20 09/01/20 naproxen 375 mg PO BID 09/01/20 09/01/20 olanzapine 2.5 mg PO Q8H PRN 09/01/20 09/01/20 Previous Rx's Medication Instructions Recorded bisacodyl [Dulcolax (bisacodyl)] 10 mg PO .Q72H prn #7 tab 08/27/20 cyanocobalamin (vitamin B-12) 1,000 mcg PO DAILY #60 tab 08/27/20 [Vitamin B-12] docusate sodium 100 mg PO BID #60 cap 08/27/20 levofloxacin 750 mg PO Q48H #4 tab 08/27/20 Allergies Allergy/AdvReac Type Severity Reaction Status Date / Time fluphenazine enanthate AdvReac Severe almost Verified 09/01/20 10:40 [From Prolixin] last time they gave it to me fluphenazine HCl AdvReac Severe almost Verified 09/01/20 10:40 [From Prolixin] last time they gave it to me haloperidol [From Haldol] AdvReac Mild doesn't Verified 09/01/20 10:40 agree with me haloperidol lactate AdvReac Mild doesn't Verified 09/01/20 10:40 [From Haldol] agree with me chlorpromazine HCl AdvReac Unknown per pt Verified 09/01/20 10:40 [From Thorazine] list from [facility] codeine AdvReac Unknown pt list Verified 09/01/20 10:40 from [facility] ibuprofen AdvReac Unknown per pt Verified 09/01/20 10:40 list from [facility] nicotine AdvReac Unknown per pt Verified 09/01/20 10:40 loist from [facility] paliperidone [From Invega] AdvReac Unknown per pt Verified 09/01/20 10:40 list from [facility] Penicillins AdvReac Unknown per pt Verified 09/01/20 10:40 list from [facility] Sulfa (Sulfonamide AdvReac Unknown per pt Verified 08/22/20 21:36 Antibiotics) list from [facility] General Stated Complaint: [facility] ALEX: 3 Review of Systems <BERNADINE Monroe - Last Filed: 09/01/20 15:07> Constitutional Constitutional: Denies fatigue, Denies fever(s), Denies headache(s) and Denies weakness Eyes Eyes: Denies change in vision ENT Ears, Nose, Mouth, and Throat: Denies headache(s) and Denies neck pain Cardiovascular Cardiovascular: Denies chest pain and Reports dyspnea Respiratory Respiratory: Denies cough and Reports dyspnea Gastrointestinal Gastrointestinal: Denies abdominal pain, Denies diarrhea, Denies nausea and Denies vomiting Genitourinary Genitourinary: Denies dysuria Musculoskeletal Musculoskeletal: Denies back pain, Denies neck pain, Denies numbness and Denies tingling Integumentary/Breasts Skin/Breast: Denies rash Neurologic Neurologic: Denies headache(s), Denies numbness, Denies tingling and Denies weakness Endocrine Endocrine: Denies fatigue Hematologic/Lymphatic Hematologic/Lymphatic: Denies easy bleeding and Denies easy bruising PFSH <BERNADINE Monroe - Last Filed: 09/01/20 15:07> Medical History Auditory hallucinations Back pain Calcium kidney stone Chronic constipation COPD (chronic obstructive pulmonary disease) Depressive disorder Diabetes mellitus Fatigue Fracture of orbital floor, left side, sequela GERD (gastroesophageal reflux disease) Glaucoma Headache Hip pain, bilateral Hyperlipidemia Hypertension Insomnia Intracranial aneurysm Knee pain, bilateral Low back pain Lumbar back pain Migraine headache with aura Migraine headache without aura Osteoarthritis Overweight Paranoid schizophrenia Polyarthralgia Tobacco use disorder Umbilical hernia without mention of obstruction or gangrene Urinary frequency Vitamin D deficiency Surgical History History of bilateral tubal ligation Status post coil embolization of cerebral aneurysm Family History Father Colon cancer Renal cancer Sister Breast cancer Mother Abdominal aortic aneurysm Brother Psychiatric illness Social History Smoking/Tobacco Use Status: Current every day Tobacco Type: cigarettes Smoking risk assessment performed?: Yes Alcohol Intake: former Drug use: Current Sobriety Substance use type: does not use Do you feel safe at home: Yes Do you feel safe in your relationship?: Yes Exam <BERNADINE Monroe - Last Filed: 09/01/20 15:07> Const General: cooperative, healthy appearing, comfortable and no acute distress Orientation: alert, awake, oriented to person, oriented to place and oriented to time (2020, unsure of exact date) [facility] Head: normal to inspection, normocephalic and atraumatic Face and sinus: normal facial exam Mouth: moist mucous membranes Throat: posterior oropharynx normal Eyes General: appearance normal, both eyes and all related structures Conjunctivae: conjunctivae normal Sclera: sclerae normal Neck Neck: normal visual inspection, full ROM, no lymphadenopathy, no meningeal signs, trachea midline, supple and nontender Resp Effort & Inspection: normal respiratory effort and able to speak in complete sentences Auscultation: clear to auscultation bilaterally Cardio Rate: regular rate Rhythm: regular rhythm GI Inspection: other (Multiple areas of ecchymosis, secondary to Lovenox injections) Palpation: soft, not firm, no guarding, no pulsatile masses and nontender Auscultation: normal bowel sounds Back/Spine/Pelvis Back: No back tenderness Skin General skin exam: no rashes or lesions noted Neuro General: patient alert, patient awake, moves all extremities and no focal motor deficits Cranial Nerves: CN's II-XI intact bilaterally Cognition: normal cognition Speech: speech normal Motor: muscle tone normal throughout Sensory Exam: no sensory deficits noted Extrem General: normal to inspection, full ROM, capillary refill normal, no pedal edema and no calf tenderness Psych Appearance: grossly normal Mental Status: mental status grossly normal Course <BERNADINE Monroe - Last Filed: 09/01/20 15:07> Vital Signs Vital signs: Vital Signs Temperature 37.7 C H 09/01/20 09:51 Pulse 94 H 09/01/20 09:51 Respiratory Rate 15 09/01/20 09:51 Blood Pressure 116/58 L 09/01/20 09:51 Pulse Oximetry 97 09/01/20 09:51 Temperature 37.7 C H 09/01/20 09:51 Temperature Source Skin 09/01/20 09:51 Pulse 94 H 09/01/20 09:51 Respiratory Rate 15 09/01/20 09:51 Respiratory Effort 09/01/20 10:09 Respiratory Depth Normal 09/01/20 10:09 Respiratory Pattern Normal 09/01/20 10:09 Blood Pressure 116/58 L 09/01/20 09:51 Blood Pressure Position Supine 09/01/20 09:51 Pulse Oximetry 97 09/01/20 09:51 Oxygen Delivery Method Nasal Cannula 09/01/20 09:51 Oxygen Flow Rate 2 09/01/20 09:51 Pain Level 8 09/01/20 09:51
[2020-09-01 10:29] LABS: Lactate 1.4 mmol/L (0.6-1.4)
[2020-09-01 10:31] LABS: Abs Immature Grans 0.06 10^3/uL (0.0-0.06); Absolute Basophil Count 0.03 10^3/uL (0.0-0.2); Absolute Eosinophil Count 0.16 10^3/uL (0.0-0.7); Absolute Lymphocyte Count 1.06 10^3/uL (1.2-3.4); Absolute Monocyte Count 0.45 10^3/uL (0.1-0.8); Absolute Neutrophil Count 8.01 10^3/uL (1.2-6.7); Basophils % 0.3; Eosinophils % 1.6; HCT 33.2 % (36.0-46.0); HGB 10.4 g/dL (11.2-15.7); Immature Grans % 0.6; Lymphocytes % 10.8; MCH 28.1 pg (27.0-33.0); MCHC 31.3 % (32.0-36.0); MCV 89.7 fL (80-95); Monocytes % 4.6; Neutrophils % 82.1; Nucleated RBC 0 %; Platelet Count 236 10^3/uL (130-400); RDW 14.8 % (11.7-14.6); RDW-SD 47.9 fL; WBC 9.77 10^3/uL (4.4-10.8)
[2020-09-01] MEDS: cefTRIAXone 2 GM/50 ML BAG IVPB (10:35)
[2020-09-01] MEDS: Acetaminophen 500 MG TAB 1000 MG PO (10:36)
[2020-09-01] MEDS: Normal Saline 1,000 ML 1000 ML IV ×2 (10:36→12:30)
[2020-09-01 10:40] LABS: INR 1.1 (0.9-1.1); Prothrombin Time 10.7 sec (9.3-11.0)
[2020-09-01 10:59] LABS: Troponin I < 0.05 ng/mL (<0.06)
[2020-09-01 11:06] LABS: ALT 45 U/L (14-59); AST 23 U/L (15-37); Alkaline Phosphatase 181 U/L (46-116); Anion Gap 10.8 mmol/L (3-11); BUN 26 mg/dL (7-18); Bilirubin, Total 0.4 mg/dL (0.2-1.0); CO2 29.2 mmol/L (21.0-32.0); CREATININE 1.9 mg/dL (0.55-1.02); Chloride 99 mmol/L (98-107); Estimated GFR 26.37 (mL/min/1.73m2); Glucose 149 mg/dL (74-106); Potassium 4.6 mmol/L (3.5-5.1); Sodium 139 mmol/L (136-145); Total Protein 7.7 g/dL (6.4-8.2)
[2020-09-01 11:11] LABS: Bilirubin Negative (Negative); Blood Small (Negative); Clarity Sl Cloudy (Clear); Glucose Negative (Negative); Ketones Negative (Negative); Leukocyte Esterase Small (Negative); Nitrite Negative (Negative); Specific Gravity 1.025 (1.005-1.025); Urobilinogen 0.2 EU/dL (Up TO 0.2)
[2020-09-01 11:18] LABS: Bacteria Few HPF (Negative); C & S Indicated? No/Sq. Contamination; Casts Negative LPF (Negative); Crystals Few Amorphous HPF (Negative); Epithelial Cells Many HPF (Negative); Mucus Negative (Negative)
[2020-09-01 11:26] LABS: COVID-19 PCR Negative (Negative); Influenza A PCR Negative (Negative); Influenza B PCR Negative (Negative); RSV PCR Negative (Negative)
--- NOTE | 2020-09-01 12:10 | DI.CT_ITS ---
EXAM: CT HEAD WO CLINICAL HISTORY: fall/ams. TECHNIQUE: Imaging Protocol: Axial computed tomography images with coronal and sagittal reformatted images were created and reviewed COMPARISON: CT CT HEAD CERVICAL SPINE WO from 08/07/2020 FINDINGS: Ventricles and Extra axial spaces: Normal in size and morphology for the patient's age. Hemorrhage: None. Cerebral parenchyma: Normal. There is artifact again seen suggestive of aneurysm treatment. There ar e areas of decreased attenuation in the white matter consistent with small vessel ischemic disease. There is an old left basal gangliar lacunar infarct. No acute territorial infarct is identified. Midline shift: None. Brainstem/Cerebellum: Normal. Calvarium: Normal. Visualized Paranasal sinuses/Mastoids: Mucosal thickening involving the visualized paranasal sinuses is identified. Soft Tissues: Unremarkable. IMPRESSION: No acute intracranial process. Results of this exam have been verbally communicated with provider. RADIATION DOSE DELIVERED: 656.68mGy.cm Total DLP DATA REPOSITORY: All CT scans at this facility are submitted to the National Radiology Data Registry (NRDR) Dose Index Registry (DIR) with the [employer] ([employer]). RADIATION OPTIMIZATION: All CT scans at this facility use at least one of these dose optimization te chniques: automated exposure control; mA and/or kV adjustment per patient size (includes targeted exa ms where dose is matched to clinical indication); or iterative reconstruction.
[2020-09-01 12:43] LABS: Bilirubin Negative (Negative); Blood Moderate (Negative); Clarity Sl Cloudy (Clear); Glucose Negative (Negative); Ketones Negative (Negative); Leukocyte Esterase Small (Negative); Nitrite Negative (Negative); Specific Gravity 1.025 (1.005-1.025); Urobilinogen 0.2 EU/dL (Up TO 0.2)
[2020-09-01 12:51] LABS: Bacteria Few HPF (Negative); C & S Indicated? Yes; Casts Negative LPF (Negative); Crystals Negative HPF (Negative); Epithelial Cells Few HPF (Negative); Mucus Negative (Negative); RBC 20-50 HPF (0-2)
== END 2020-09-01 15:47 | disposition other institution (70) ==
PROVIDERS: Emergency Provider Physician Assistant; PCP Nurse Practitioner Family
DX: N39.0 Urinary tract infection, site not specified (principal); R09.02 Hypoxemia; Z03.818 Encounter for observation for suspected exposure to other biological agents ruled out
CPT/HCPCS: 36415; 51701; 80053; 87040; 93005; 96361; 96365; 99285; 70450; 71045; 81003; 81015; 83605; 84484; 85025; 85610; 87086; 93010

== ENCOUNTER 2020-09-06 03:11 | Outpatient (CLI) | payer MEDICARE, MEDICAID, SELFPAY ==
[2020-09-06 09:56] LABS: Abs Immature Grans 0.04 10^3/uL (0.0-0.06); Absolute Basophil Count 0.05 10^3/uL (0.0-0.2); Absolute Monocyte Count 0.38 10^3/uL (0.1-0.8); Basophils % 0.6; Eosinophils % 1.1; HGB 10.6 g/dL (11.2-15.7); Immature Grans % 0.5; Lymphocytes % 14.8; MCH 28.1 pg (27.0-33.0); MCHC 30.3 % (32.0-36.0); MCV 92.8 fL (80-95); MPV 10.4 fL (8.0-11.0); Monocytes % 4.3; Neutrophils % 78.7; Nucleated RBC 0 %; Platelet Count 214 10^3/uL (130-400); RBC 3.77 10^6/uL (3.93-5.22); RDW 14.4 % (11.7-14.6); RDW-SD 49.2 fL; WBC 8.77 10^3/uL (4.4-10.8)
== END 2020-09-06 03:12 | disposition home or self-care (01) ==
LOC: LBO 03:11
PROVIDERS: PCP Nurse Practitioner Family; Visit Provider Psychiatry & Neurology Psychiatry
DX: F20.9 Schizophrenia, unspecified (principal); Z79.899 Other long term (current) drug therapy; R82.998 Other abnormal findings in urine; Z87.440 Personal history of urinary (tract) infections
CPT/HCPCS: 36415; 85025; 87086

== ENCOUNTER → 2020-09-07 12:54 | Outpatient (BNVA) | payer MEDICARE, MEDICAID, SELFPAY | PROVIDERS: PCP Nurse Practitioner Family; Referring Provider Nurse Practitioner Family; Visit Provider Urology | DX: N13.30 Unspecified hydronephrosis (principal); Z86.19 Personal history of other infectious and parasitic diseases | CPT/HCPCS: 99213 ==

== ENCOUNTER 2020-09-13 02:13 | Outpatient (CLI) | payer MEDICARE, MEDICAID, SELFPAY ==
--- NOTE | 2020-09-13 09:38 | DI.CT_ITS ---
EXAM: CT CHEST WO CLINICAL HISTORY: PLEURAL THICKENING,J92.9. TECHNIQUE: Multi planar reconstructions were performed. CONTRAST MATERIAL: Omnipaque 350; 75 cc COMPARISON: CR XR CHEST 1V IN DI DEPT from 09/01/2020 FINDINGS: CHEST: LUNGS: There are mild benign-appearing increased markings in the right middle lobe as well as in the anterior basal segment of the left lower lobe. Also benign mild subpleural markings noted in the pos terior basal segment of the right lower lobe. There are no confluent infiltrates. No pleural effusi ons. No significant focal findings in the trachea and mainstem bronchi. No bronchiectasis. MEDIASTINUM: There is no hilar nor mediastinal adenopathy. Visualized thyroid unremarkable. CARDIAC: Heart size is normal. Slight thickening of the anterior pericardium is consistent with a sm all pericardial effusion. Maximum thickness 8 millimeters.Caliber of the thoracic aorta is within no rmal limits. VISUALIZED UPPER ABDOMEN:There are no significant adrenal masses. Atrophic partially included pancre as. OSSEOUS: No significant osseous lesions.. IMPRESSION: 1. Mild benign-appearing bilateral pulmonary markings as described above. No confluent infiltrates n or pleural effusions. No obvious intrathoracic adenopathy. 2. Small pericardial effusion. Heart size is normal. 3. RADIATION DOSE DELIVERED: 405.03mGy.cm Total DLP DATA REPOSITORY: All CT scans at this facility are submitted to the National Radiology Data Registry (NRDR) Dose Index Registry (DIR) with the [employer] ([employer]). RADIATION OPTIMIZATION: All CT scans at this facility use at least one of these dose optimization te chniques: automated exposure control; mA and/or kV adjustment per patient size (includes targeted exa ms where dose is matched to clinical indication); or iterative reconstruction.
== END 2020-09-13 02:33 ==
PROVIDERS: PCP Nurse Practitioner Family; Visit Provider Nurse Practitioner Family
DX: R91.8 Other nonspecific abnormal finding of lung field (principal); I31.3 Pericardial effusion (noninflammatory); J92.9 Pleural plaque without asbestos
CPT/HCPCS: 71250

== ENCOUNTER 2020-09-28 04:08 | Outpatient (CLI) | payer MEDICARE, MEDICAID, SELFPAY ==
[2020-09-28 10:52] LABS: Abs Immature Grans 0.04 10^3/uL (0.0-0.06); Absolute Basophil Count 0.04 10^3/uL (0.0-0.2); Absolute Eosinophil Count 0.18 10^3/uL (0.0-0.7); Absolute Lymphocyte Count 1.43 10^3/uL (1.2-3.4); Absolute Neutrophil Count 8.01 10^3/uL (1.2-6.7); Basophils % 0.4; Eosinophils % 1.8; HCT 34.2 % (36.0-46.0); HGB 10.7 g/dL (11.2-15.7); Immature Grans % 0.4; Lymphocytes % 14.2; MCH 28.6 pg (27.0-33.0); MCHC 31.3 % (32.0-36.0); MCV 91.4 fL (80-95); MPV 9.5 fL (8.0-11.0); Neutrophils % 79.2; Nucleated RBC 0 %; Platelet Count 256 10^3/uL (130-400); RBC 3.74 10^6/uL (3.93-5.22); RDW 14.5 % (11.7-14.6); RDW-SD 48.6 fL
== END 2020-09-28 04:09 | disposition home or self-care (01) ==
PROVIDERS: PCP Nurse Practitioner Family; Visit Provider Psychiatry & Neurology Psychiatry
DX: F20.9 Schizophrenia, unspecified (principal); Z79.899 Other long term (current) drug therapy
CPT/HCPCS: 36415; 85025

== ENCOUNTER 2020-10-05 02:50 | Outpatient (CLI) | payer MEDICARE, MEDICAID, SELFPAY ==
[2020-10-05 11:06] LABS: Source Nasal/Nares
[2020-10-05 14:25] LABS: COVID-19 PCR Negative (Negative)
== END 2020-10-05 02:51 | disposition home or self-care (01) ==
LOC: LBO 02:51
PROVIDERS: PCP Nurse Practitioner Family; Visit Provider Urology
DX: Z20.822 Contact with and (suspected) exposure to COVID-19 (principal); Z01.818 Encounter for other preprocedural examination
CPT/HCPCS: 87635

== ENCOUNTER 2020-10-07 07:31 | Day surgery (SDC) | payer MEDICARE, MEDICAID, SELFPAY ==
[2020-10-07 07:45] VITALS: BP 136/73; PULSE 80; RESP 18; TEMP 36.7; O2SAT 95
--- NOTE | 2020-10-07 08:11 | W.PM.HP.N ---
Date of service: 10/07/20 Time of Service: 08:12 Assessment and Plan Assessment and plan (1) Hydronephrosis, right: Status: Acute Assessment and plan: We will remove her ureteral stent and do flexible ureteroscopy to rule out any ureteral obstruction. History of Present Illness History of Present Illness Chief Complaint: Hydronephrosis Narrative: This is a 65-year-old woman who had a recent hospitalization for sepsis. She was found to have E. coli in both her blood and her urine. During her hospitalization, she had a CT scan which raised the possibility of mild right-sided hydronephrosis. No stones or obstructing lesions were identified. Contrast was not done as her serum creatinine was 3.1 at the time. I placed a ureteral stent but did not find a hydronephrotic drip. She did have purulent urine when I placed a [place] catheter. Clinically, she improved with culture specific antibiotics. She is since been discharged and comes in for follow-up. She is not having any fevers or chills at this time. She presents for stent removal and ureteroscopy to rule out any obstructing ureteral lesions. Review of Systems Narrative: No fevers or chills No vision change or dysphasia Hx diabetes. No thyroid dysfunction No shortness of breath, cough or hemoptysis She has no current chest pain, but she does describe occasional chest pain. She is unable to tell us any precipitating events. She can not describe anything that relieves the discomfort. At most, the pain can last 10 to 15 minutes. She is able to go up a flight of stairs without chest pain or shortness of breath. No nausea, vomiting, hepatitis, ulcers, jaundice Hx intracranial aneurism No bleeding disorders or anemia No gout [facility] Medical History (Updated 10/07/20 @ 08:17 by Ambrocio Kruse MD) Ankle pain, left Auditory hallucinations Back pain Calcium kidney stone Chronic constipation COPD (chronic obstructive pulmonary disease) Depressive disorder Diabetes mellitus Fatigue Fracture of orbital floor, left side, sequela GERD (gastroesophageal reflux disease) Glaucoma Headache Hip pain, bilateral Hyperlipidemia Hypertension Insomnia Intracranial aneurysm Knee pain, bilateral Low back pain Lumbar back pain Migraine headache with aura Migraine headache without aura Osteoarthritis Overweight Paranoid schizophrenia Polyarthralgia Tobacco use disorder Toe infection Umbilical hernia without mention of obstruction or gangrene Urinary frequency Vitamin D deficiency Surgical History (Updated 10/07/20 @ 07:53 by Aleena Gonzales RN) H/O: hysterectomy History of bilateral tubal ligation Status post coil embolization of cerebral aneurysm Family History Father Colon cancer Renal cancer Sister Breast cancer Mother Abdominal aortic aneurysm Brother Psychiatric illness Social History Smoking/Tobacco Use Status: Current every day Tobacco Type: cigarettes Smoking risk assessment performed?: Yes Alcohol Intake: former Drug use: Current Sobriety Substance use type: does not use Do you feel safe at home: Yes Additional Social history: unable to assess [facility] Allergies and Home Medications Allergies Allergy/AdvReac Type Severity Reaction Status Date / Time fluphenazine enanthate AdvReac Severe almost Verified 10/07/20 07:54 [From Prolixin] last time they gave it to me fluphenazine HCl AdvReac Severe almost Verified 10/07/20 07:54 [From Prolixin] last time they gave it to me haloperidol [From Haldol] AdvReac Mild doesn't Verified 10/07/20 07:54 agree with me haloperidol lactate AdvReac Mild doesn't Verified 10/07/20 07:54 [From Haldol] agree with me chlorpromazine HCl AdvReac Unknown per pt Verified 10/07/20 07:54 [From Thorazine] [place] [facility] [place] AdvReac Unknown pt list Verified 10/07/20 07:54 [place] [facility] [place]upro[place] AdvReac Unknown per pt Verified 10/07/20 07:[address] [facility] [place] nicotine AdvReac Unknown per pt Verified 10/07/20 07:[address] [facility] [place] paliperidone [From Invega] AdvReac Unknown per pt Verified 10/07/20 07:[address] [facility] [place] Penicillins AdvReac Unknown per pt Verified 10/07/20 07:[address] [facility] [place] Sulfa (Sulfonamide AdvReac Unknown per pt Verified 10/07/20 07:54 Antibiotics) list from [facility] [place] Home Medications Medication Instructions Recorded Confirmed Type latanoprost 1 drp OPHTHALMIC (EYE) .QHS 12/17/18 10/07/20 History aspirin 81 mg tablet 81 mg PO DAILY 07/14/19 10/07/20 History clonazepam 0.5 mg tablet 0.25 mg PO BID tab 07/14/19 10/07/20 History clozapine 100 mg tablet 200 mg PO QHS tab 07/14/19 10/07/20 History nicotine [Nicoderm CQ] 7 mg TRANSDERMAL Q24H 08/28/19 10/07/20 History polyethylene glycol 3350 [Miralax] 17 g PO DAILY 08/28/19 10/07/20 History melatonin 3 mg PO HS 08/30/19 10/07/20 History alendronate 70 mg tablet 70 mg PO QWEEK 06/08/20 10/07/20 History lisinopril 2.5 mg tablet 2.5 mg PO DAILY 06/08/20 10/05/20 History citalopram 20 mg PO HS 08/07/20 10/07/20 History simvastatin 20 mg PO HS 08/07/20 10/07/20 History bisacodyl [Dulcolax (bisacodyl)] 10 mg PO .Q72H prn #7 tab 08/27/20 10/07/20 Rx cyanocobalamin (vitamin B-12) 1,000 mcg PO DAILY #60 tab 08/27/20 10/07/20 Rx [Vitamin B-12] docusate sodium 100 mg PO BID #60 cap 08/27/20 10/07/20 Rx levofloxacin 750 mg PO Q48H #4 tab 08/27/20 10/07/20 Rx Combigan 1 drp OPHTHALMIC (EYE) HS 09/01/20 10/07/20 History acetylcysteine [NAC] 1,200 mg PO BID 09/01/20 10/07/20 History cholecalciferol (vitamin D3) 1,000 mcg PO BID 09/01/20 10/07/20 History [Vitamin D3] clonazepam 0.5 mg PO PRN PRN 09/01/20 10/07/20 History clozapine 25 mg PO DAILY 09/01/20 10/07/20 History cyclobenzaprine 5 mg PO PRN PRN 09/01/20 10/07/20 History gabapentin 100 mg PO DAILY PRN 09/01/20 10/07/20 History gabapentin 200 mg PO HS 09/01/20 10/07/20 History metformin 750 mg PO BID 09/01/20 10/07/20 History naproxen 375 mg PO BID 09/01/20 10/07/20 History olanzapine 2.5 mg PO Q8H PRN 09/01/20 10/07/20 History albuterol sulfate 90 mcg/actuation 1 puff INHALATION ONCE 09/13/20 10/07/20 History aerosol inhaler brimonidine 0.2 %-timolol 0.5 % 1 drp OPHTHALMIC (EYE) BID 09/13/20 10/07/20 History eye drops calcium carbonate-vitamin D3 600 1 cap PO DAILY 09/13/20 10/07/20 History mg (1,500 mg)-400 unit capsule ferrous sulfate 325 mg (65 mg 325 mg PO DAILY 09/13/20 10/07/20 History iron) tablet,delayed release nystatin-triamcinolone 100,000 1 applic TOPICAL DAILY 09/13/20 10/07/20 History unit/g-0.1 % topical cream Exam Const General: cooperative and comfortable Neck Neck: supple Resp Effort & Inspection: normal respiratory effort Auscultation: clear to auscultation bilaterally Cardio Rate: regular rate Rhythm: regular rhythm GI Palpation: soft and no masses Neuro General: patient alert and patient awake Results Last Vital Signs Temp 36.7 C 10/07/20 07:45 Pulse 80 10/07/20 07:45 Resp 18 10/07/20 07:45 BP 136/73 10/07/20 07:45 Pulse Ox 95 10/07/20 07:45 COVID-19 Screening Have you, or household traveled for leisure in last 14 days?: No Had IN PERSON contact w/suspected or confirmed C-19 person: No
[2020-10-07] MEDS: levoFLOXacin 500 MG TAB PO (08:13)
--- NOTE | 2020-10-07 08:15 | DI.RAD_ITS ---
EXAM: XR RETROGRADE IN OR CLINICAL HISTORY: stent removal. TECHNIQUE: 2D digital imaging was performed. COMPARISON: No exams were available for comparison FINDINGS: Prostate was provided during urologic procedure. Placement of ureteral stent. See procedure report for details Total fluoroscopy time 19.1 seconds Cumulative dose 3.81 mGy IMPRESSION: DATA REPOSITORY: RADIATION DOSE DELIVERED:
[2020-10-07] MEDS: Lactated Ringers 1,000 ML 80 ML IV (08:24)
[2020-10-07] MEDS: Lidocaine 2% Jelly 6 ML SYR (09:05)
[2020-10-07] MEDS: Omnipaque 300 MG/ML 50 ML BTL (09:05)
--- NOTE | 2020-10-07 09:21 | W.PM.DSUDISC ---
Discharge Plan Disposition Patient Disposition: HOME Condition: Stable Discharge Details Reason For Visit: right hydronephrosis Attending Provider: Ambrocio Kruse Primary Care Provider: Tosin Lundberg Home Meds and New Rx's Prescriptions: No Action aspirin 81 mg tablet 81 mg PO DAILY RF: 0 lisinopril 2.5 mg tablet 2.5 mg PO DAILY RF: 0 alendronate 70 mg tablet 70 mg PO QWEEK RF: 0 clonazepam 0.5 mg tablet 0.25 mg PO BID RF: 0 Combigan 0.2-0.5 % drops 1 drp ophthalmic (eye) BID RF: 0 calcium carbonate-vitamin D3 600 mg(1,500mg) -400 unit capsule 1 cap PO DAILY RF: 0 nystatin-triamcinolone 100,000-0.1 unit/g-% cream 1 applic topical DAILY RF: 0 albuterol sulfate [ProAir HFA] 90 mcg/actuation HFA aerosol inhaler 1 puff inhalation ONCE RF: 0 ferrous sulfate 325 mg (65 mg iron) tablet,delayed release (DR/EC) 325 mg PO DAILY RF: 0 clozapine 100 mg tablet 200 mg PO QHS RF: 0 simvastatin 20 mg Tablet 20 mg PO HS RF: 0 citalopram 20 mg Tablet 20 mg PO HS RF: 0 cyanocobalamin (vitamin B-12) [Vitamin B-12] 500 mcg Tablet 1,000 mcg PO DAILY Qty: 60 RF: 0 levofloxacin 750 mg tablet 750 mg PO Q48H Qty: 4 RF: 0 docusate sodium 100 mg capsule 100 mg PO BID Qty: 60 RF: 0 bisacodyl [Dulcolax (bisacodyl)] 5 mg tablet,delayed release (DR/EC) 10 mg PO .Q72H prn Qty: 7 RF: 0 naproxen 375 mg tablet 375 mg PO BID RF: 0 clonazepam 0.5 mg tablet 0.5 mg PO PRN PRNRF: 0 olanzapine 2.5 mg Tablet 2.5 mg PO Q8H PRNRF: 0 gabapentin 100 mg Capsule 100 mg PO DAILY PRNRF: 0 cholecalciferol (vitamin D3) [Vitamin D3] 25 mcg (1,000 unit) capsule 1,000 mcg PO BID RF: 0 cyclobenzaprine 5 mg Tablet 5 mg PO PRN PRNRF: 0 metformin 750 mg tablet extended release 24 hr 750 mg PO BID RF: 0 clozapine 25 mg tablet,disintegrating 25 mg PO DAILY RF: 0 acetylcysteine [NAC] 600 mg capsule 1,200 mg PO BID RF: 0 Combigan 0.2-0.5 % Drops 1 drp ophthalmic (eye) HS RF: 0 gabapentin 100 mg capsule 200 mg PO HS RF: 0 latanoprost 0.005 % Drops 1 drp ophthalmic (eye) .QHS RF: 0 nicotine [Nicoderm CQ] 7 mg/24 hr Patch 24 Hour 7 mg transdermal Q24H RF: 0 polyethylene glycol 3350 [Miralax] 17 gram/dose Powder 17 g PO DAILY RF: 0 melatonin 3 mg Tablet 3 mg PO HS RF: 0 Discharge Instructions Additional Instructions: followup 6 to 8 weeks with renal ultrasound on same day Activity:: Activity as Tolerated Shower/Bathe:: 24 hours Diet:: As Tolerated Discharge Orders Discharge Orders: Discharge Order (Routine); Ordered 10/07/20 Ordered By: Ambrocio Kruse DS: Diagnosis Discharge Diagnosis (1) Hydronephrosis, right: Status: Acute
--- NOTE | 2020-10-07 09:26 | ROE_ITS ---
Date of service: 10/07/20 Time of Service: 09:26 Operative Note Operative Note DATE OF PROCEDURE: 10/07/20 PRE-OP DIAGNOSIS: Right hydronephrosis POST-OP DIAGNOSIS: same PROCEDURE: Cystoscopy, remove right ureteral stent, right retrograde pyelogram, right flexible ureteroscopy ANESTHESIA TYPE: General:No Airway Refer to Anesthesia Record ESTIMATED BLOOD LOSS: 5 PATHOLOGY: none sent COMPLICATIONS: None Patient was transported to: same day Patient's condition: other Implants: None Indications: This is a 65-year-old woman who presented to the hospital with urosepsis. On her initial imaging, there was concern regarding mild right hydronephrosis. I brought her to the room emergently and placed a ureteral stent. I did not see a hydronephrotic drip when I placed the stent. Clinically, she improved with culture specific antibiotics. She presents now for stent removal and ureteroscopy to ensure there was no visible obstructing lesion present Findings: No obstructing lesions Procedure Description: Brought to the operating room on 10/07/2020. She was given a dose of preoperative IV antibiotics. After successful induction of general anesthesia, she was placed in the dorsal lithotomy position. Her genitalia was prepped and draped. 2% Xylocaine jelly was instilled into the urethra to act as a local anesthetic. A 22 [place] rigid cystoscope was passed through the urethra into the bladder. The bladder was inspected with a 30 degree lens. The stent can be seen protruding from the right ureteral orifice. The stent was grasped with alligator forceps and brought out to the level of the urethral meatus. A Glidewire was then advanced through the lumen of the stent. We used fluoroscopic guidance to monitor as the stent was advanced up to the region of the kidney. The stent was then removed leaving the wire in place. A 6 [place] access catheter was advanced over the wire and the wire was removed leaving the catheter in place. Retrograde pyelogram was performed by injecting Omnipaque through the access catheter under fluoroscopic guidance. This allowed us to outline the calyces and things system for scopic mapping. The Glidewire was then reintroduced back through the lumen of the access catheter. Passed the flexible ureteroscope alongside the wire that did the ureter, collecting system and calyces. No filling defects were seen within the length of the ureter. The renal pelvis appeared slightly full but again no obstructing lesions were found at the ureteropelvic junction. No filling defects were seen within any of the calyces. And removed the ureteroscope and guidewire. Based on today's examination, I do not find any significant visual abnormalities. We will plan on a renal ultrasound in about 6 weeks. If there is still a question of hydronephrosis, we can always arrange for a nuclear renogram with Lasix washout. She tolerated this procedure well. She was taken back to the day surgery unit in stable condition.
[2020-10-07] MEDS: Phenazopyridine 200 MG TAB PO (09:50)
[2020-10-07 10:05] VITALS: BP 133/66; PULSE 69; RESP 17; TEMP 36.2; O2SAT 94
== END 2020-10-07 10:34 | disposition home or self-care (01) ==
PROVIDERS: PCP Nurse Practitioner Family; Visit Provider Urology
PROC: (CPT 52351; principal; 2020-10-07 08:30)
DX: N13.30 Unspecified hydronephrosis (principal); Z96.0 Presence of urogenital implants
CPT/HCPCS: 52351; NC; 74420; J0131; J1100; J1885; J2001; J2405; Q9967

== ENCOUNTER → 2020-10-19 07:29 | Outpatient (BNVA) | payer MEDICARE, MEDICAID, SELFPAY | PROVIDERS: PCP Nurse Practitioner Family; Visit Provider Nurse Practitioner Adult Health | DX: G43.009 Migraine without aura, not intractable, without status migrainosus (principal); G43.109 Migraine with aura, not intractable, without status migrainosus; F17.210 Nicotine dependence, cigarettes, uncomplicated | CPT/HCPCS: 99212; 99213 ==

== ENCOUNTER 2020-11-02 03:32 | Outpatient (CLI) | payer MEDICARE, MEDICAID, SELFPAY ==
[2020-11-02 13:20] LABS: Abs Immature Grans 0.03 10^3/uL (0.0-0.06); Absolute Basophil Count 0.05 10^3/uL (0.0-0.2); Absolute Eosinophil Count 0.19 10^3/uL (0.0-0.7); Absolute Lymphocyte Count 1.55 10^3/uL (1.2-3.4); Absolute Monocyte Count 0.48 10^3/uL (0.1-0.8); Absolute Neutrophil Count 5.54 10^3/uL (1.2-6.7); Basophils % 0.6; Eosinophils % 2.4; HCT 34.2 % (36.0-46.0); HGB 11.1 g/dL (11.2-15.7); Immature Grans % 0.4; Lymphocytes % 19.8; MCH 28.8 pg (27.0-33.0); MCHC 32.5 % (32.0-36.0); MCV 88.8 fL (80-95); MPV 9.7 fL (8.0-11.0); Monocytes % 6.1; Neutrophils % 70.7; Nucleated RBC 0 %; Platelet Count 262 10^3/uL (130-400); RBC 3.85 10^6/uL (3.93-5.22); RDW-SD 45.8 fL; WBC 7.84 10^3/uL (4.4-10.8)
== END 2020-11-02 03:33 | disposition home or self-care (01) ==
LOC: LBO 03:32
PROVIDERS: PCP Nurse Practitioner Family; Visit Provider Psychiatry & Neurology Psychiatry
DX: F20.9 Schizophrenia, unspecified (principal); Z79.899 Other long term (current) drug therapy
CPT/HCPCS: 36415; 85025

== ENCOUNTER 2020-11-19 03:02 | Outpatient (CLI) | payer MEDICARE, MEDICAID, SELFPAY ==
--- NOTE | 2020-11-19 08:00 | DI.US_ITS ---
Exam(s) US RENAL EXAM: US RENAL CLINICAL HISTORY: r/o hydronephrosis after ureteroscopy,N13.0 TECHNIQUE: Ultrasound performed using standard protocol. COMPARISON: US US ECHOCARDIOGRAM from 08/26/2020 FINDINGS: Kidneys are normal in size and shape. There is no evidence of a renal mass, hydronephrosis, or nephr olithiasis. An incidental 12 millimeter left simple renal cyst is noted. Urinary bladder is unremarkable in appearance with pre and post void urinary bladder volume measureme nts 89 cc and 27 cc respectively. Left ureteral jet was visualized. Right ureteral jet was nonvisualized. IMPRESSION: No evidence of acute urinary tract obstruction. DATA REPOSITORY:
== END 2020-11-19 03:22 ==
PROVIDERS: PCP Nurse Practitioner Family; Visit Provider Urology
DX: N13.30 Unspecified hydronephrosis (principal); N28.1 Cyst of kidney, acquired
CPT/HCPCS: 76770; 99213

== ENCOUNTER 2020-11-24 15:04 | Outpatient (REF) | payer MEDICARE, MEDICAID, SELFPAY ==
[2020-11-24 16:07] LABS: COMMENT (LAB VIEW ONLY) 20.53 mg/dL
[2020-11-24 16:11] LABS: Microalb ug/mg Crea 109.1 ug/mg Cr
== END 2020-11-24 15:05 | disposition home or self-care (01) ==
LOC: NCHCN 15:04
PROVIDERS: PCP Nurse Practitioner Family; Visit Provider Nurse Practitioner Family
DX: Z87.440 Personal history of urinary (tract) infections (principal); R82.998 Other abnormal findings in urine
CPT/HCPCS: 82043; 82570; 87086

== ENCOUNTER 2020-11-30 03:46 | Outpatient (CLI) | payer MEDICARE, MEDICAID, SELFPAY ==
[2020-11-30 09:34] LABS: Abs Immature Grans 0.05 10^3/uL (0.0-0.06); Absolute Basophil Count 0.06 10^3/uL (0.0-0.2); Absolute Eosinophil Count 0.23 10^3/uL (0.0-0.7); Absolute Lymphocyte Count 1.65 10^3/uL (1.2-3.4); Absolute Monocyte Count 0.53 10^3/uL (0.1-0.8); Absolute Neutrophil Count 8.02 10^3/uL (1.2-6.7); Basophils % 0.6; Eosinophils % 2.2; HCT 34.6 % (36.0-46.0); HGB 11.5 g/dL (11.2-15.7); Immature Grans % 0.5; Lymphocytes % 15.7; MCH 29.5 pg (27.0-33.0); MCHC 33.2 % (32.0-36.0); MCV 88.7 fL (80-95); MPV 9.5 fL (8.0-11.0); Nucleated RBC 0 %; Platelet Count 270 10^3/uL (130-400); RDW 14.1 % (11.7-14.6); RDW-SD 45.2 fL; WBC 10.54 10^3/uL (4.4-10.8)
== END 2020-11-30 03:47 | disposition home or self-care (01) ==
LOC: LBO 03:46
PROVIDERS: PCP Nurse Practitioner Family; Visit Provider Psychiatry & Neurology Psychiatry
DX: F20.9 Schizophrenia, unspecified (principal); Z79.899 Other long term (current) drug therapy
CPT/HCPCS: 36415; 85025

== ENCOUNTER 2020-12-28 03:58 | Outpatient (CLI) | payer MEDICARE, MEDICAID, SELFPAY ==
[2020-12-28 10:05] LABS: Abs Immature Grans 0.07 10^3/uL (0.0-0.06); Absolute Basophil Count 0.04 10^3/uL (0.0-0.2); Absolute Eosinophil Count 0.22 10^3/uL (0.0-0.7); Absolute Lymphocyte Count 1.44 10^3/uL (1.2-3.4); Basophils % 0.3; Eosinophils % 1.8; HCT 35.9 % (36.0-46.0); HGB 11.5 g/dL (11.2-15.7); Immature Grans % 0.6; MCH 29.7 pg (27.0-33.0); MCV 92.8 fL (80-95); MPV 8.7 fL (8.0-11.0); Monocytes % 4.7; Neutrophils % 80.6; Nucleated RBC 0 %; Platelet Count 260 10^3/uL (130-400); RBC 3.87 10^6/uL (3.93-5.22); RDW 13.5 % (11.7-14.6); RDW-SD 45.2 fL; WBC 12.02 10^3/uL (4.4-10.8)
[2020-12-28 10:06] LABS: Absolute Monocyte Count 0.56 10^3/uL (0.1-0.8); Absolute Neutrophil Count 9.69 10^3/uL (1.2-6.7)
== END 2020-12-28 03:59 | disposition home or self-care (01) ==
LOC: LBO 03:58
PROVIDERS: PCP Nurse Practitioner Family; Visit Provider Psychiatry & Neurology Psychiatry
DX: F20.9 Schizophrenia, unspecified (principal); Z79.899 Other long term (current) drug therapy
CPT/HCPCS: 36415; 85025

== ENCOUNTER 2021-01-19 19:24 | Outpatient (REF) | payer MEDICARE, MEDICAID, SELFPAY ==
[2021-01-19 16:43] LABS: Bilirubin Negative (Negative); Blood Trace-intact (Negative); Clarity Sl Cloudy (Clear); Glucose Negative (Negative); Ketones Negative (Negative); Leukocyte Esterase Moderate (Negative); Nitrite Positive (Negative); Urobilinogen 0.2 EU/dL (Up TO 0.2); pH 5.5 (5-8)
[2021-01-19 16:53] LABS: WBC >50 HPF (0-5)
[2021-01-19 16:54] LABS: Bacteria Many HPF (Negative); C & S Indicated? Yes; Casts Negative LPF (Negative); Crystals Negative HPF (Negative); Epithelial Cells Few HPF (Negative); Mucus Negative (Negative); RBC Negative HPF (0-2)
== END 2021-01-19 19:25 | disposition home or self-care (01) ==
LOC: NCHCN 19:24
PROVIDERS: PCP Nurse Practitioner Family; Visit Provider Nurse Practitioner Family
DX: E11.9 Type 2 diabetes mellitus without complications (principal); Z87.440 Personal history of urinary (tract) infections
CPT/HCPCS: 87077; 81003; 81015; 87086; 87186

== ENCOUNTER 2021-01-25 03:52 | Outpatient (CLI) | payer MEDICARE, MEDICAID, SELFPAY ==
[2021-01-25 10:50] LABS: Abs Immature Grans 0.03 10^3/uL (0.0-0.06); Absolute Basophil Count 0.04 10^3/uL (0.0-0.2); Absolute Eosinophil Count 0.14 10^3/uL (0.0-0.7); Absolute Lymphocyte Count 1.45 10^3/uL (1.2-3.4); Absolute Monocyte Count 0.45 10^3/uL (0.1-0.8); Basophils % 0.4; Eosinophils % 1.5; HCT 39.3 % (36.0-46.0); HGB 12.7 g/dL (11.2-15.7); Immature Grans % 0.3; Lymphocytes % 15.2; MCH 29.6 pg (27.0-33.0); MCHC 32.3 % (32.0-36.0); MCV 91.6 fL (80-95); MPV 8.9 fL (8.0-11.0); Monocytes % 4.7; Neutrophils % 77.9; Nucleated RBC 0 %; Platelet Count 268 10^3/uL (130-400); RBC 4.29 10^6/uL (3.93-5.22); RDW 12.8 % (11.7-14.6); RDW-SD 42.6 fL; WBC 9.51 10^3/uL (4.4-10.8)
== END 2021-01-25 03:53 | disposition home or self-care (01) ==
LOC: LBO 03:52
PROVIDERS: PCP Nurse Practitioner Family; Visit Provider Psychiatry & Neurology Psychiatry
DX: F20.9 Schizophrenia, unspecified (principal); Z79.899 Other long term (current) drug therapy
CPT/HCPCS: 36415; 85025

== ENCOUNTER 2021-01-27 17:27 | Emergency (ER) | payer MEDICARE, MEDICAID, SELFPAY ==
[2021-01-27] VITALS (18 sets, daily range): BP systolic 146–158; BP diastolic 50–68; PULSE 87–110; RESP 9–19; TEMP 36.6; O2SAT 91–97
--- NOTE | 2021-01-27 18:00 | DI.CT_ITS ---
Exam(s) CT HEAD CERVICAL SPINE WO EXAM: CT HEAD CERVICAL SPINE WO COMPARISON: CT CT HEAD WO from 09/01/2020 FINDINGS: CT examination of the cervical spine was performed without contrast administration. There is no evidence of acute cervical spine fracture or dislocation. Intervertebral disc spaces are well maintained. Tracheolaryngeal structures appear intact. No cervical mass or adenopathy. Noncontrast cranial CT was performed. Mild generalized changes of cerebral atrophy. Metallic artifact noted in suprasellar region consiste nt with prior aneurysm treatment. No evidence of acute intracranial hemorrhage, mass effect, or midline shift. No calvarial fracture. The orbital and temporal bone structures appear intact. Visualized mastoid air cells appear clear. There is mucoperiosteal thickening paranasal sinuses cons istent chronic sinusitis most marked involving right maxillary antrum. IMPRESSION: No evidence of acute cervical spine injury. No evidence of acute intracranial injury. RADIATION DOSE DELIVERED: 1,295.62mGy.cm Total DLP 1,295.62mGy.cm Total DLP CTDIvol DATA REPOSITORY: All CT scans at this facility are submitted to the National Radiology Data Registry (NRDR) Dose Index Registry (DIR) with the [employer] ([employer]). RADIATION OPTIMIZATION: All CT scans at this facility use at least one of these dose optimization te chniques: automated exposure control; mA and/or kV adjustment per patient size (includes targeted exa ms where dose is matched to clinical indication); or iterative reconstruction.
--- NOTE | 2021-01-27 18:00 | DI.CT_ITS ---
Exam(s) CT THORACIC LUMBAR SPINE WO CT CHEST/ABD/PEL W EXAM: CT CHEST/ABD/PEL W TECHNIQUE: CT examination of the chest, abdomen, and pelvis was performed with bolus infusion of 100 cc of Omnipaque 350. COMPARISON: CT CT ABDOMEN PELVIS WO from 08/22/[address] THORACIC LUMBAR SPINE WO from 01/27/[address] THORACIC LUMBAR SPINE WO from 01/27/2021 FINDINGS: There is no evidence of a thoracic vascular injury. The lungs are clear. No pneumothorax or pleural effusion. No mediastinal hematoma. No adenopathy in the chest. Tracheobronchial tree appears intact. The liver, spleen, and pancreas appear baljeet except for pancreatic atrophy. L. Gallbladder and bile ducts are normal. Adrenals and kidneys are unremarkable except for incidental left renal cysts.. No evidence of urinar y tract injury or obstruction. No abdominal or pelvic vascular injury seen. No abdominal or pelvic adenopathy. No significant abdomi nal wall hernia or hematoma. No evidence of bowel injury. There is comminuted fracture of the proximal right humerus. Additional thoracic and lumbar spine reconstructions were performed. No evidence of fracture on thes e images. Note is made of soft tissue edema in the region subcutaneous tissues of the buttocks and right hip co nsistent with contusion. No evidence of underlying fracture. IMPRESSION: Proximal right humeral fracture as noted. No evidence of acute thoracic or intra-abdominal injury. RADIATION DOSE DELIVERED: Total DLP Total DLP CTDIvol DATA REPOSITORY: All CT scans at this facility are submitted to the National Radiology Data Registry (NRDR) Dose Index Registry (DIR) with the [employer] (ACR). RADIATION OPTIMIZATION: All CT scans at this facility use at least one of these dose optimization te chniques: automated exposure control; mA and/or kV adjustment per patient size (includes targeted exa ms where dose is matched to clinical indication); or iterative reconstruction.
--- NOTE | 2021-01-27 18:15 | W.ED.GENAD ---
Discharge Plan Disposition Patient Disposition: HOME Condition: Stable Discharge Details Clinical Impression: Closed fracture of proximal end of right humerus, Contusion of hip, right, Fall (on) (from) other stairs and steps, initial encounter Primary Care Provider: Tosin Lundberg ED Provider: Althea Hernandes Home Meds and New Rx's Prescriptions: No Action aspirin 81 mg tablet 81 mg PO DAILY RF: 0 alendronate 70 mg tablet 70 mg PO QWEEK RF: 0 clonazepam 0.5 mg tablet 0.5 mg PO BID RF: 0 Combigan 0.2-0.5 % drops 1 drp ophthalmic (eye) BID RF: 0 calcium carbonate-vitamin D3 600 mg(1,500mg) -400 unit capsule 1 cap PO BID RF: 0 nystatin-triamcinolone 100,000-0.1 unit/g-% cream 1 applic topical DAILY RF: 0 albuterol sulfate [ProAir HFA] 90 mcg/actuation HFA aerosol inhaler 1 puff inhalation ONCE RF: 0 ferrous sulfate 325 mg (65 mg iron) tablet,delayed release (DR/EC) 325 mg PO TID RF: 0 clozapine 100 mg tablet 200 mg PO QHS RF: 0 simvastatin 20 mg Tablet 20 mg PO HS RF: 0 citalopram 20 mg Tablet 20 mg PO HS RF: 0 bisacodyl [Dulcolax (bisacodyl)] 5 mg tablet,delayed release (DR/EC) 10 mg PO .Q72H prn Qty: 7 RF: 0 olanzapine 2.5 mg Tablet 2.5 mg PO Q8H PRNRF: 0 gabapentin 100 mg Capsule 100 mg PO DAILY PRNRF: 0 cholecalciferol (vitamin D3) [Vitamin D3] 25 mcg (1,000 unit) capsule 1,000 mcg PO DAILY RF: 0 cyclobenzaprine 5 mg Tablet 5 mg PO PRN PRNRF: 0 metformin 750 mg tablet extended release 24 hr 750 mg PO BID RF: 0 clozapine 25 mg tablet,disintegrating 25 mg PO QAM RF: 0 acetylcysteine [NAC] 600 mg capsule 1,200 mg PO BID RF: 0 gabapentin 100 mg capsule 200 mg PO HS RF: 0 cyanocobalamin (vitamin B-12) 1,000 mcg tablet 1,000 mcg PO DAILY RF: 0 nicotine (polacrilex) 2 mg gum 2 mg PO Q1H RF: 0 docusate sodium 100 mg capsule 100 mg PO QHS PRNRF: 0 latanoprost 0.005 % Drops 1 drp ophthalmic (eye) .QHS RF: 0 nicotine [Nicoderm CQ] 7 mg/24 hr Patch 24 Hour 7 mg transdermal Q24H PRNRF: 0 polyethylene glycol 3350 [Miralax] 17 gram/dose Powder 17 g PO DAILY RF: 0 melatonin 3 mg Tablet 3 mg PO HS RF: 0 Discharge Instructions Instructions: Arm Fracture in Adults (ED), Contusion in Adults (ED), Fall Prevention (ED) Additional Instructions: Wear sling when up walking or when you are not at home. While at home rest your arm on pillows or exercise you may use it lightly. Please take Tylenol or Ibuprofen with food every 4-6 hours as needed for pain and swelling. Please follow-up with orthopedics next week. Return to the ER for any worsening pain not relieved by Tylenol or ibuprofen, chest pain shortness of breath abdominal pain any blood in your stool, confusion or any concerns. Referrals: Tosin Lundberg [Primary Care Provider] - Jacques Pérez MD [ [facility] STAFF PHYSICIAN] - 1 week Discharge Data Discharge Date/Time-TO BE ENTERED AT DEPARTURE: 01/27/21 20:55 Medical Decision Making 55-year-old female who was standing on top of 14 stairs last her balance fell backwards down a flight of stairs landing on her right side. She is complaining of right arm pain. She denies loss of consciousness c-collar in place prior to arrival patient was given fentanyl 100 mcg by EMS. Patient does have some swelling noted to the anterior right shoulder, some ecchymosis and swelling noted to her left hand dorsal side, is complaining of some C-spine T-spine and L-spine tenderness with palpation no crepitus no step-off. Denies any chest pain or abdominal pain. Stable upon initial exam. Trauma protocol initiated, CT head C-spine chest abdomen pelvis x-rays of shoulder and hand ordered. Labs orders placed. Imaging protocol: Computed tomography of the head without contrast. COMPARISON: CT HEAD WO 09/01/2020 11:56 AM FINDINGS: Brain: There is age related volume loss. Adams-white differention is maintained. No hemorrhage. No mass effect. There is low attenuation in the periventricular white matter suggestive of chronic small vessel ischemic changes. There is a stable left basal ganglial lacunar infarct. Cerebral ventricles: No ventriculomegaly. Paranasal sinuses: There is interval increase in mucoperiosteal thickening of the right maxillary sinus, not severe. There is mucosal opacification of the right frontal sinus. There is persistent advancement comparison thickening of the ethmoid air cells. Mastoid air cells: Visualized mastoid air cells are well aerated. Vasculature: There is again seen an aneurysm coil resulting significant metallic artifact obscuring portions of the lower cerebrum. Bones/joints: Unremarkable. No acute fracture. Soft tissues: Unremarkable. IMPRESSION: 1. No evidence for acute intracranial abnormality. 2. Advanced sinus disease. CT C-spine WO FINDINGS: Bones/joints: No acute fracture. Normal alignment. Discs/Spinal canal/Neural foramina: The disc spaces are preserved. No significant degenerative changes. Lungs: The visualized lung apices are clear. Soft tissues: The soft tissues of the neck are unremarkable. IMPRESSION: No evidence for cervical spine fracture. FINDINGS: Lungs: Unremarkable. No consolidation. No masses. Pleural spaces: Unremarkable. No pneumothorax. No pleural effusion. Heart: Unremarkable. No cardiomegaly. No pericardial effusion. Aorta: Unremarkable. No aortic aneurysm. Lymph nodes: Unremarkable. No enlarged lymph nodes. Bones/joints: There is a comminuted fracture of the proximal right humerus. Soft tissues: Unremarkable. IMPRESSION: Proximal right humerus fracture. FINDINGS: Liver: Normal. No mass. Gallbladder and bile ducts: Normal. No calcified stones. No ductal dilation. Pancreas: Normal. No ductal dilation. Spleen: Normal. No splenomegaly. Adrenal glands: Normal. No mass. Kidneys and ureters: Normal. No hydronephrosis. Stomach and bowel: Significant fecal retention pattern. Duodenal diverticula. Appendix: No evidence of appendicitis. Intraperitoneal space: Unremarkable. No free air. No significant fluid collection. Vasculature: Moderate atherosclerotic change present in the vasculature. Lymph nodes: Unremarkable. No enlarged lymph nodes. Urinary bladder: Unremarkable as visualized. Reproductive: Unremarkable as visualized. Bones/joints: Unremarkable. No acute fracture. Soft tissues: There is soft tissue stranding in the subcutaneous fat lateral to the right hip, presumed contusion. There is soft tissue stranding in the subcutaneous fat at the right gluteal level with a slightly coalescent area of increased density series 5, images 76-82 consistent with poorly defined contusion. IMPRESSION: Subcutaneous contusions right gluteal and lateral hip regions. No evidence for fracture. Imaging protocol: XR Left hand. Views: 3 or more views. COMPARISON: US EXTREMITY VENOUS BI 08/24/2020 11:16 AM FINDINGS: Bones/joints: Normal. Soft tissues: Normal. IMPRESSION: No evidence for fracture. OK'd to Take C-collar off R Shoulder X-ray: FINDINGS: Bones/joints: There is a slightly impacted comminuted fracture of the proximal right humeral shaft. There is mild angulation. The glenohumeral articulation appears intact. Soft tissues: Normal. IMPRESSION: Proximal humeral shaft fracture with impaction and comminution. Thank you for allowing us to participate in the care of your patient. Dictated and Authenticated by: Elizabeth Young MD Spoke with Dr. Pérez he was able to personally view the x-ray he recommends sling and follow-up in the office next week. Discussed x-ray results with patient who verbalizes understanding and home care. Instructed to apply ice alternate Tylenol ibuprofen. Discussed return instructions verbalized understanding. Patient is taking p.o. in department without difficulty prior to discharge he is alert and oriented and has remained hemodynamically stable throughout stay. Patient given transportation back to her community assisted living facility. HPI General Mode of arrival: EMS. Date/Time Provider Initiated Documentation: 01/27/21 18:01. Limitations to Documentation: no limitations. Information obtained by: patient, RN notes reviewed and old records reviewed. HPI Narrative: 55-year-old female who was standing on top of 14 stairs last her balance fell backwards down a flight of stairs landing on her right side. She is complaining of right arm pain. She denies loss of consciousness c-collar in place prior to arrival patient was given fentanyl 100 mcg by EMS. Patient does have some swelling noted to the anterior right shoulder, some ecchymosis and swelling noted to her left hand dorsal side, is complaining of some C-spine T-spine and L-spine tenderness with palpation no crepitus no step-off. Denies any chest pain or abdominal pain. Stable upon initial exam. Related Data Home Medications Medication Instructions Recorded Confirmed latanoprost 1 drp OPHTHALMIC (EYE) .QHS 12/17/18 01/27/21 aspirin 81 mg tablet 81 mg PO DAILY 07/14/19 01/27/21 clonazepam 0.5 mg tablet 0.5 mg PO BID tab 07/14/19 01/27/21 clozapine 100 mg tablet 200 mg PO QHS tab 07/14/19 01/27/21 nicotine [Nicoderm CQ] 7 mg TRANSDERMAL Q24H PRN 08/28/19 01/27/21 polyethylene glycol 3350 [Miralax] 17 g PO DAILY 08/28/19 01/27/21 melatonin 3 mg PO HS 08/30/19 01/27/21 alendronate 70 mg tablet 70 mg PO QWEEK 06/08/20 01/27/21 citalopram 20 mg PO HS 08/07/20 01/27/21 simvastatin 20 mg PO HS 08/07/20 01/27/21 bisacodyl [Dulcolax (bisacodyl)] 10 mg PO .Q72H prn #7 tab 08/27/20 01/27/21 acetylcysteine [NAC] 1,200 mg PO BID 09/01/20 01/27/21 cholecalciferol (vitamin D3) 1,000 mcg PO DAILY 09/01/20 01/27/21 [Vitamin D3] clozapine 25 mg PO QAM 09/01/20 01/27/21 cyclobenzaprine 5 mg PO PRN PRN 09/01/20 01/27/21 gabapentin 100 mg PO DAILY PRN 09/01/20 01/27/21 gabapentin 200 mg PO HS 09/01/20 01/27/21 metformin 750 mg PO BID 09/01/20 01/27/21 olanzapine 2.5 mg PO Q8H PRN 09/01/20 01/27/21 albuterol sulfate 90 mcg/actuation 1 puff INHALATION ONCE 09/13/20 01/27/21 aerosol inhaler brimonidine 0.2 %-timolol 0.5 % 1 drp OPHTHALMIC (EYE) BID 09/13/20 01/27/21 eye drops calcium carbonate-vitamin D3 600 1 cap PO BID 09/13/20 01/27/21 mg (1,500 mg)-400 unit capsule ferrous sulfate 325 mg (65 mg 325 mg PO TID 09/13/20 01/27/21 iron) tablet,delayed release nystatin-triamcinolone 100,000 1 applic TOPICAL DAILY 09/13/20 01/27/21 unit/g-0.1 % topical cream cyanocobalamin (vitamin B-12) 1,000 mcg PO DAILY 01/27/21 01/27/21 docusate sodium 100 mg PO QHS PRN 01/27/21 01/27/21 nicotine (polacrilex) 2 mg PO Q1H 01/27/21 01/27/21 Previous Rx's Medication Instructions Recorded bisacodyl [Dulcolax (bisacodyl)] 10 mg PO .Q72H prn #7 tab 08/27/20 Allergies Allergy/AdvReac Type Severity Reaction Status Date / Time fluphenazine enanthate AdvReac Severe almost Verified 01/27/21 17:33 [From Prolixin] last time they gave it to me fluphenazine HCl AdvReac Severe almost Verified 01/27/21 17:33 [From Prolixin] last time they gave it to me haloperidol [From Haldol] AdvReac Mild doesn't Verified 01/27/21 17:33 agree with me haloperidol lactate AdvReac Mild doesn't Verified 01/27/21 17:33 [From Haldol] agree with me chlorpromazine HCl AdvReac Unknown per pt Verified 01/27/21 17:33 [From Thorazine] list from [facility] [place] codeine AdvReac Unknown pt list Verified 01/27/21 17:33 from [facility] [place] ibuprofen AdvReac Unknown per pt Verified 01/27/21 17:33 [place] [facility] AdvReac Unknown per pt Verified 01/27/21 17:33 loist [place] [facility] [place] paliperidone [From Invega] AdvReac Unknown per pt Verified 01/27/21 17:33 [place] [facility] [place] Penicillins AdvReac Unknown per pt Verified 01/27/21 17:33 [place] [facility] [place] S[place]a (Sulfonamide AdvReac Unknown per pt Verified 01/27/21 17:33 Antibiotics) [place] [facility] [place] General Stated Complaint: Trauma ALEX: 3 Review of Systems All systems reviewed & are unremarkable except as noted in HPI and below PFSH Medical History Ankle pain, left Auditory hallucinations Back pain Calcium kidney stone Chronic constipation COPD (chronic obstructive pulmonary disease) Depressive disorder Diabetes mellitus DNI (do not intubate) DNR (do not resuscitate) Falls Fatigue Fracture of orbital floor, left side, sequela GERD (gastroesophageal reflux disease) Glaucoma Headache Hip pain, bilateral Hyperlipidemia Hypertension Insomnia Intracranial aneurysm Knee pain, bilateral Low back pain Lumbar back pain Migraine headache with aura Migraine headache without aura Osteoarthritis Overweight Paranoid schizophrenia POLST (Physician Orders for Life-Sustaining Treatment) Polyarthralgia Tobacco use disorder Toe infection Umbilical hernia without mention of obstruction or gangrene Urinary frequency Vitamin D deficiency Surgical History H/O: hysterectomy History of bilateral tubal ligation Status post coil embolization of cerebral aneurysm Family History Father Colon cancer Renal cancer Sister Breast cancer Mother Abdominal aortic aneurysm Brother Psychiatric illness Social History Smoking/Tobacco Use Status: Current every day Tobacco Type: cigarettes Smoking risk assessment performed?: Yes Alcohol Intake: former Drug use: Current Sobriety Substance use type: does not use Do you feel safe at home: Yes Do you feel safe in your relationship?: Yes Additional Social history: unable to assess [facility] Exam Narrative Exam Narrative: General: Well Developed, Awake and Alert, slurred speech, was given some pain medication prior to arrival, conversant. Skin: Warm and Dry HEENT: Head: No palpable deformities, Normocephalic Eyes: Pupils PERRLA, EOM's intact. No periorbital eccymosis or step off Ears: Canal patent. Tympanic membranes are clear . No mehta's sign, no hemptympanum. Nose/Face: Atraumatic. Facial bones nontender to palpation and stable with manipulation. Mouth/Throat: No intraoral trauma. Teeth and mandible are intact. Neck: Midline C-spine tenderness, T-spine tenderness and L-spine tenderness palpation, no step off, no deformity to palpation of C-spine. Trachea midline. Chest: No surface trauma. Nontender without crepitus or deformity. Lungs clear to ausculatation bilaterally. Heart: RRR, no rubs, murmurs or gallop. Abdomen: No abrasions, ecchymosis, or surface trauma. Nondistended. Nontender to palpation no guarding, rebound, or rigidity. Pelvis: Nontender to palpation and stable to compression. Femoral pulses strong and equal Extremities: Small amount of ectopy ecchymosis to the right posterior shoulder, swelling anteriorly tenderness to the proximal humerus, sensation intact. Peripheral pulses intact and equal. Contusion and swelling noted to the left dorsum of hand cap refill less than 2 seconds. Neuro: ANO x4, GCS 15, cranial nerves II through XII intact. Motor and sensory exam nonfocal. Reflexes are symmetric. Course Vital Signs Vital signs: Vital Signs Temperature 36.6 C 01/27/21 17:23 Pulse 94 H 01/27/21 17:23 Respiratory Rate 16 01/27/21 17:23 Blood Pressure 146/50 H 01/27/21 17:23 Pulse Oximetry 93 01/27/21 17:23 Temperature 36.6 C 01/27/21 17:23 Temperature Source Skin 01/27/21 17:23 Pulse 94 H 01/27/21 17:23 Respiratory Rate 16 01/27/21 17:23 Blood Pressure 146/50 H 01/27/21 17:23 Blood Pressure Position Supine 01/27/21 17:23 Pulse Oximetry 93 01/27/21 17:23 Oxygen Delivery Method Nasal Cannula 01/27/21 17:23 Oxygen Flow Rate 2 01/27/21 17:23 Pain Level 10 01/27/21 17:23
[2021-01-27 18:46] LABS: Abs Immature Grans 0.06 10^3/uL (0.0-0.06); Absolute Basophil Count 0.06 10^3/uL (0.0-0.2); Absolute Lymphocyte Count 1.11 10^3/uL (1.2-3.4); Basophils % 0.4; Eosinophils % 1.2; HGB 11.4 g/dL (11.2-15.7); Immature Grans % 0.4; Lymphocytes % 7.5; MCH 29.5 pg (27.0-33.0); MCHC 31.7 % (32.0-36.0); MCV 93.3 fL (80-95); MPV 9.1 fL (8.0-11.0); Neutrophils % 85.5; Nucleated RBC 0 %; Platelet Count 230 10^3/uL (130-400); RBC 3.86 10^6/uL (3.93-5.22); RDW 13.2 % (11.7-14.6); RDW-SD 44.6 fL; WBC 14.74 10^3/uL (4.4-10.8)
[2021-01-27 18:48] LABS: Absolute Eosinophil Count 0.18 10^3/uL (0.0-0.7); Absolute Monocyte Count 0.74 10^3/uL (0.1-0.8)
[2021-01-27] MEDS: Normal Saline Flush 10 ML SYR IVP ×2 (18:53→19:25)
[2021-01-27] MEDS: Ondansetron 4 MG/2 ML VIAL IVP (18:53)
[2021-01-27 18:54] LABS: Lipase 61 U/L (73-393)
[2021-01-27 18:57] LABS: ALT 14 U/L (14-59); AST 13 U/L (15-37); Albumin 3.5 g/dL (3.4-5.0); Alkaline Phosphatase 117 U/L (46-116); Anion Gap 7.4 mmol/L (3-11); BUN 19 mg/dL (7-18); Bilirubin, Total 0.2 mg/dL (0.2-1.0); CO2 29.6 mmol/L (21.0-32.0); CREATININE 1.5 mg/dL (0.55-1.02); Calcium 9.7 mg/dL (8.5-10.1); Chloride 102 mmol/L (98-107); Estimated GFR 34.64 (mL/min/1.73m2); Glucose 155 mg/dL (74-106); Potassium 4.5 mmol/L (3.5-5.1); Sodium 139 mmol/L (136-145); Total Protein 7.8 g/dL (6.4-8.2)
[2021-01-27] MEDS: Normal Saline - Diluent 50 ML VIAL IV (19:23)
[2021-01-27] MEDS: Omnipaque 350 MG/ML 100 ML BTL IJ (19:24)
--- NOTE | 2021-01-27 19:48 | DI.VRAD_ITS ---
PROCEDURE INFORMATION: Exam: CT Head Without Contrast Exam date and time: 01/27/2021 6:16 PM Age: 65 years old Clinical indication: Injury or trauma; Fall; Blunt trauma (contusions or hematomas) TECHNIQUE: Imaging protocol: Computed tomography of the head without contrast. COMPARISON: CT HEAD WO 09/01/2020 11:56 AM FINDINGS: Brain: There is age related volume loss. Adams-white differention is maintained. No hemorrhage. No mass effect. There is low attenuation in the periventricular white matter suggestive of chronic small vessel ischemic changes. There is a stable left basal ganglial lacunar infarct. Cerebral ventricles: No ventriculomegaly. Paranasal sinuses: There is interval increase in mucoperiosteal thickening of the right maxillary sinus, not severe. There is mucosal opacification of the right frontal sinus. There is persistent advancement comparison thickening of the ethmoid air cells. Mastoid air cells: Visualized mastoid air cells are well aerated. Vasculature: There is again seen an aneurysm coil resulting significant metallic artifact obscuring portions of the lower cerebrum. Bones/joints: Unremarkable. No acute fracture. Soft tissues: Unremarkable. IMPRESSION: 1. No evidence for acute intracranial abnormality. 2. Advanced sinus disease. PROCEDURE INFORMATION: Exam: CT Cervical Spine Without Contrast Exam date and time: 01/27/2021 6:16 PM Age: 65 years old Clinical indication: Injury or trauma; Fall; Blunt trauma (contusions or hematomas) TECHNIQUE: Imaging protocol: Computed tomography images of the cervical spine without contrast. COMPARISON: CT HEAD WO 09/01/2020 11:56 AM FINDINGS: Bones/joints: No acute fracture. Normal alignment. Discs/Spinal canal/Neural foramina: The disc spaces are preserved. No significant degenerative changes. Lungs: The visualized lung apices are clear. Soft tissues: The soft tissues of the neck are unremarkable. IMPRESSION: No evidence for cervical spine fracture. Dictated and Authenticated by: Randell Ruiz MD. Ordering:NINA Oh MD
--- NOTE | 2021-01-27 19:51 | DI.RAD_ITS ---
Exam(s) XR HAND LT COMPLETE EXAM: XR HAND LT COMPLETE CLINICAL HISTORY: Trauma TECHNIQUE: COMPARISON: No exams were available for comparison FINDINGS: Three views were obtained. There is no evidence of a fracture or dislocation. IMPRESSION: RADIATION DOSE DELIVERED: Total DLP
--- NOTE | 2021-01-27 19:51 | DI.RAD_ITS ---
Exam(s) XR SHOULDER RT COMPLETE 2+V EXAM: XR SHOULDER RT COMPLETE 2+V CLINICAL HISTORY: Trauma TECHNIQUE: COMPARISON: No exams were available for comparison FINDINGS: Three views were obtained. There is a mildly comminuted mildly displaced fracture of the humeral hea d and neck. No glenohumeral dislocation. No additional fracture seen on this limited series. IMPRESSION: RADIATION DOSE DELIVERED: Total DLP
--- NOTE | 2021-01-27 19:55 | DI.VRAD_ITS ---
PROCEDURE INFORMATION: Exam: CT Chest With Contrast; Diagnostic Exam date and time: 01/27/2021 6:16 PM Age: 65 years old Clinical indication: Injury or trauma; Fall; Generalized; Blunt trauma (contusions or hematomas) TECHNIQUE: Imaging protocol: Diagnostic computed tomography of the chest with contrast. Contrast material: OMNIPAQUE 350; Contrast volume: 100 ml; Contrast route: INTRAVENOUS (IV); COMPARISON: CT CHEST WO 09/13/2020 9:34 AM FINDINGS: Lungs: Unremarkable. No consolidation. No masses. Pleural spaces: Unremarkable. No pneumothorax. No pleural effusion. Heart: Unremarkable. No cardiomegaly. No pericardial effusion. Aorta: Unremarkable. No aortic aneurysm. Lymph nodes: Unremarkable. No enlarged lymph nodes. Bones/joints: There is a comminuted fracture of the proximal right humerus. Soft tissues: Unremarkable. IMPRESSION: Proximal right humerus fracture. PROCEDURE INFORMATION: Exam: CT Abdomen And Pelvis With Contrast Exam date and time: 01/27/2021 6:16 PM Age: 65 years old Clinical indication: Injury or trauma; Fall; Generalized; Blunt trauma (contusions or hematomas) TECHNIQUE: Imaging protocol: Computed tomography of the abdomen and pelvis with contrast. Contrast material: OMNIPAQUE 350; Contrast volume: 100 ml; Contrast route: INTRAVENOUS (IV); COMPARISON: CT CHEST WO 09/13/2020 9:34 AM FINDINGS: Liver: Normal. No mass. Gallbladder and bile ducts: Normal. No calcified stones. No ductal dilation. Pancreas: Normal. No ductal dilation. Spleen: Normal. No splenomegaly. Adrenal glands: Normal. No mass. Kidneys and ureters: Normal. No hydronephrosis. Stomach and bowel: Significant fecal retention pattern. Duodenal diverticula. Appendix: No evidence of appendicitis. Intraperitoneal space: Unremarkable. No free air. No significant fluid collection. Vasculature: Moderate atherosclerotic change present in the vasculature. Lymph nodes: Unremarkable. No enlarged lymph nodes. Urinary bladder: Unremarkable as visualized. Reproductive: Unremarkable as visualized. Bones/joints: Unremarkable. No acute fracture. Soft tissues: There is soft tissue stranding in the subcutaneous fat lateral to the right hip, presumed contusion. There is soft tissue stranding in the subcutaneous fat at the right gluteal level with a slightly coalescent area of increased density series 5, images 76-82 consistent with poorly defined contusion. IMPRESSION: Subcutaneous contusions right gluteal and lateral hip regions. No evidence for fracture. Dictated and Authenticated by: Elizabeth Young MD. Ordering:NINA Oh MD
--- NOTE | 2021-01-27 20:01 | DI.VRAD_ITS ---
PROCEDURE INFORMATION: Exam: XR Right Shoulder Exam date and time: 01/27/2021 6:18 PM Age: 65 years old Clinical indication: Injury or trauma; Blunt trauma (contusions or hematomas); Shoulder; Right; Patient HX: S/P fall down 14 stairs. TECHNIQUE: Imaging protocol: XR Right shoulder. Views: 2 or more views. COMPARISON: CT UPPER EXTREMITY RT WO 08/29/2019 7:58 AM FINDINGS: Bones/joints: There is a slightly impacted comminuted fracture of the proximal right humeral shaft. There is mild angulation. The glenohumeral articulation appears intact. Soft tissues: Normal. IMPRESSION: Proximal humeral shaft fracture with impaction and comminution. Dictated and Authenticated by: Elizabeth Young MD. Ordering:NINA Oh MD
--- NOTE | 2021-01-27 20:02 | DI.VRAD_ITS ---
PROCEDURE INFORMATION: Exam: XR Left Hand Exam date and time: 01/27/2021 6:18 PM Age: 65 years old Clinical indication: Pain; Hand; Left; Patient HX: S/P fall down 14 stairs. TECHNIQUE: Imaging protocol: XR Left hand. Views: 3 or more views. COMPARISON: US EXTREMITY VENOUS BI 08/24/2020 11:16 AM FINDINGS: Bones/joints: Normal. Soft tissues: Normal. IMPRESSION: No evidence for fracture. Dictated and Authenticated by: Elizabeth Young MD. Ordering:NINA Oh MD
--- NOTE | 2021-01-27 21:03 | DI.VRAD_ITS ---
PROCEDURE INFORMATION: Exam: CT Thoracic Spine Without Contrast Exam date and time: 01/27/2021 6:16 PM Age: 65 years old Clinical indication: Injury or trauma; Fall; Blunt trauma (contusions or hematomas) TECHNIQUE: Imaging protocol: Computed tomography images of the thoracic spine without contrast. COMPARISON: CT THORACIC LUMBAR SPINE WO 08/07/2020 3:23 PM FINDINGS: Vertebrae: Mild compression deformity superior endplate T5 and to a lesser extent T4 and T7, unchanged from previous exam. Vertebral body height is otherwise well preserved. No evidence for fracture. Discs/Spinal canal/Neural foramina: No significant disc protrusion. No severe spinal canal stenosis. No significant neural foraminal narrowing. Soft tissues: Unremarkable. IMPRESSION: No evidence for acute posttraumatic abnormality. PROCEDURE INFORMATION: Exam: CT Lumbar Spine Without Contrast Exam date and time: 01/27/2021 6:16 PM Age: 65 years old Clinical indication: Injury or trauma; Fall; Blunt trauma (contusions or hematomas) TECHNIQUE: Imaging protocol: Computed tomography images of the lumbar spine without contrast. COMPARISON: CT THORACIC LUMBAR SPINE WO 08/07/2020 3:23 PM FINDINGS: Vertebrae: No acute fracture. Normal alignment. Discs/Spinal canal/Neural foramina: No significant disc protrusion. No severe spinal canal stenosis. No significant neural foraminal narrowing. Soft tissues: Unremarkable. IMPRESSION: No evidence for acute posttraumatic abnormality. Dictated and Authenticated by: Elizabeth Young MD. Ordering:NINA Oh MD
== END 2021-01-27 20:55 | disposition home or self-care (01) ==
PROVIDERS: Emergency Provider Registered Nurse Emergency; PCP Nurse Practitioner Family
DX: S42.291A Other displaced fracture of upper end of right humerus, initial encounter for closed fracture (principal); S70.01XA Contusion of right hip, initial encounter; W10.8XXA Fall (on) (from) other stairs and steps, initial encounter
CPT/HCPCS: 74177; 80053; 83690; 86850; 86900; 86901; 96374; 99285; 70450; 71260; 72125; 72128; 72131; 73030; 73130; 83735; 85025; 99284; J2405; J3490

== ENCOUNTER 2021-01-28 11:11 | Inpatient (IN) | payer MEDICARE, MEDICAID, SELFPAY ==
[2021-01-28] VITALS (48 sets, daily range): BP systolic 69–129; BP diastolic 27–70; PULSE 79–90; RESP 12–19; TEMP 36.4–36.7; O2SAT 85–100
--- NOTE | 2021-01-28 11:15 | DI.RAD_ITS ---
Exam(s) XR PORTABLE CHEST AP EXAM: XR PORTABLE CHEST AP CLINICAL HISTORY: ams. TECHNIQUE: 2D digital imaging was performed. COMPARISON: CR XR CHEST 1V IN DI DEPT from 09/01/2020 FINDINGS: LUNGS: Clear. No pleural abnormality seen. HEART: Normal. MEDIASTINUM: Normal. OTHER FINDINGS: None. IMPRESSION: No acute pulmonary findings. DATA REPOSITORY: RADIATION DOSE DELIVERED: Total DLP
--- NOTE | 2021-01-28 11:15 | DI.CT_ITS ---
Exam(s) CT HEAD WO EXAM: CT HEAD WO CLINICAL HISTORY: AMS TECHNIQUE: COMPARISON: CT CT HEAD CERVICAL SPINE WO from 01/27/2021 FINDINGS: Noncontrast cranial CT was performed. Examination is compared with yesterday's examination. Note is again made of metallic artifact in supraclinoid region in consistent with prior aneurysm treatment. No evidence of acute intracranial hemorrhage, mass effect, or midline shift. Findings consistent wi th chronic sinusitis again noted particularly involving right maxillary antrum. Moderate generalized cerebral atrophy again noted. IMPRESSION: No evidence of acute intracranial process. RADIATION DOSE DELIVERED: 677.84mGy.cm Total DLP CTDIvol RADIATION OPTIMIZATION: All CT scans at this facility use at least one of these dose optimization te chniques: automated exposure control; mA and/or kV adjustment per patient size (includes targeted exa ms where dose is matched to clinical indication); or iterative reconstruction.
--- NOTE | 2021-01-28 11:18 | W.ED.GENAD ---
Discharge Plan Disposition Patient Disposition: [facility] INPATIENT Condition: Serious Discharge Details Clinical Impression: AMS (altered mental status) Primary Care Provider: Tosin Lundberg ED Provider: Usman Byrd Home Meds and New Rx's Prescriptions: No Action aspirin 81 mg tablet 81 mg PO DAILY RF: 0 alendronate 70 mg tablet 70 mg PO QWEEK RF: 0 clonazepam 0.5 mg tablet 0.5 mg PO BID RF: 0 Combigan 0.2-0.5 % drops 1 drp ophthalmic (eye) BID RF: 0 calcium carbonate-vitamin D3 600 mg(1,500mg) -400 unit capsule 1 cap PO BID RF: 0 nystatin-triamcinolone 100,000-0.1 unit/g-% cream 1 applic topical DAILY RF: 0 albuterol sulfate [ProAir HFA] 90 mcg/actuation HFA aerosol inhaler 1 puff inhalation ONCE RF: 0 ferrous sulfate 325 mg (65 mg iron) tablet,delayed release (DR/EC) 325 mg PO TID RF: 0 clozapine 100 mg tablet 200 mg PO QHS RF: 0 simvastatin 20 mg Tablet 20 mg PO HS RF: 0 citalopram 20 mg Tablet 20 mg PO HS RF: 0 bisacodyl [Dulcolax (bisacodyl)] 5 mg tablet,delayed release (DR/EC) 10 mg PO .Q72H prn Qty: 7 RF: 0 olanzapine 2.5 mg Tablet 2.5 mg PO Q8H PRNRF: 0 gabapentin 100 mg Capsule 100 mg PO DAILY PRNRF: 0 cholecalciferol (vitamin D3) [Vitamin D3] 25 mcg (1,000 unit) capsule 1,000 mcg PO DAILY RF: 0 cyclobenzaprine 5 mg Tablet 5 mg PO PRN PRNRF: 0 metformin 750 mg tablet extended release 24 hr 750 mg PO BID RF: 0 clozapine 25 mg tablet,disintegrating 25 mg PO QAM RF: 0 acetylcysteine [NAC] 600 mg capsule 1,200 mg PO BID RF: 0 gabapentin 100 mg capsule 200 mg PO HS RF: 0 cyanocobalamin (vitamin B-12) 1,000 mcg tablet 1,000 mcg PO DAILY RF: 0 nicotine (polacrilex) 2 mg gum 2 mg PO Q1H RF: 0 docusate sodium 100 mg capsule 100 mg PO QHS PRNRF: 0 latanoprost 0.005 % Drops 1 drp ophthalmic (eye) .QHS RF: 0 nicotine [Nicoderm CQ] 7 mg/24 hr Patch 24 Hour 7 mg transdermal Q24H PRNRF: 0 polyethylene glycol 3350 [Miralax] 17 gram/dose Powder 17 g PO DAILY RF: 0 melatonin 3 mg Tablet 3 mg PO HS RF: 0 Medical Decision Making 65-year-old female presents for altered mental status. Upon arrival she is awake, alert, able to follow commands and answer some questions. She does not fully partake in her HPI. Given her recent trauma, will obtain CT imaging of her head to rule out intracranial process. She is afebrile but will obtain IV access, give IV fluids, and obtain laboratory values including a single troponin. We will also obtain chest x-ray and urinalysis. Upon presentation her O2 sats are in the low 90s, blood pressure 97/54 pulse in the 80s, she is afebrile. Head CT negative per radiology serial blood pressures reveal that her pressure is trending upward now at 129/58. She is now awake, alert, very talkative, requesting to go home, have some coffee and putting it. Able to tolerate p.o. intake without any difficulty. Laboratory values reveal a white blood cell count of 10.99, decreasing when compared to yesterday. Hemoglobin 9.7, hematocrit 30.5, decreased from yesterday but above what she was in August 2020. Platelet count 225. INR 1.0 electrolytes unremarkable. BUN 25, increased from yesterday but when comparing her overall trend much better than her typical baseline. Creatinine also is elevated from yesterday, 2.3 with a GFR of 21.15. She did receive 500 cc of normal saline from EMS and a liter here in the ER. Glucose 207, calcium 9.8 magnesium 2.1 LFTs unremarkable. Troponin less than 0.05, TSH 1.47 urinalysis trace ketones, trace leukoesterase, white cells 20-50. No nitrates. When reviewing her previous urinalysis, typically does have white cells. She denies abdominal pain or dysuria. White count is trending down from yesterday, she is afebrile, I see no clear indication to treat for acute UTI. Tox screen negative Patient states that she would like to go home. We placed a sling on her right arm and attempted to ambulate her using a walker. She was only able to take a few steps, needed assistance on her right side. She lives at a long term and she presented initially because she fell. My concern is that she goes home in her current state she will likely be a fall risk and could return with a more severe injury. She does have paranoid schizophrenia so judging her mental status on top of a recent head injury is rather difficult. There is no glaring neuro deficit. Again CT imaging of the head is unremarkable. I will discussed the case with our hospitalist team to discuss observation admission and eventual placement for rehab. Case discussed Dr. Poon, who after talking with our care management team was agreeable to an observation admission. He will place initial holding orders. Patient has become more somnolent, blood pressures are now back in the 90s over 50s. She is awake, alert, continues to complain of right arm pain from the fracture but has no additional concerns or complaints. Again there are no focal neuro deficits. I did contact our hospitalist team to make them aware of her status change. She exhibits no nuchal rigidity whatsoever Medical Records Medical records reviewed: Yes I reviewed the patient's medical records. Imaging Data Radiologic Study: Attestation: I personally reviewed and interpreted this imaging study as follows: Imaging: CT Scan Radiologist's impression: EXAM: CT HEAD WO CLINICAL HISTORY: AMS TECHNIQUE: COMPARISON: CT CT HEAD CERVICAL SPINE WO from 01/27/2021 FINDINGS: Noncontrast cranial CT was performed. Examination is compared with yesterday's examination. Note is again made of metallic artifact in supraclinoid region in consistent with prior aneurysm treatment. No evidence of acute intracranial hemorrhage, mass effect, or midline shift. Findings consistent with chronic sinusitis again noted particularly involving right maxillary antrum. Moderate generalized cerebral atrophy again noted. IMPRESSION: No evidence of acute intracranial process. Radiologic Study #2: Attestation: I personally reviewed and interpreted this imaging study as follows: Imaging: X-Ray Radiologist's impression: CXR Negative Lab Data Lab results reviewed: Yes I reviewed the patient's lab results. Labs: 01/28/21 12:35 Urine - Reflex from Ua Urine Culture - Pending Laboratory Tests Range/Units 01/28/21 01/28/21 01/28/21 12:17 12:17 12:17 WBC (4.4-10.8) 10^3/uL 10.99 H RBC (3.93-5.22) 10^6/uL 3.28 L Hgb (11.2-15.7) g/dL 9.7 L Hct (36.0-46.0) % 30.5 L MCV (80-95) fL 93.0 MCH (27.0-33.0) pg 29.6 MCHC (32.0-36.0) % 31.8 L RDW (11.7-14.6) % 13.3 Plt Count (130-400) 10^3/uL 225 MPV (8.0-11.0) fL 9.2 Immature Gran % 0.5 Neutrophils % 79.9 Lymphocytes % 12.3 Monocytes % 6.3 Eosinophils % 0.5 Basophils % 0.5 Nucleated RBC % % 0 Absolute Neutrophils (1.2-6.7) 10^3/uL 8.78 H Absolute Lymphocytes (1.2-3.4) 10^3/uL 1.35 Absolute Monocytes (0.1-0.8) 10^3/uL 0.69 Absolute Eosinophils (0.0-0.7) 10^3/uL 0.05 Absolute Basophils (0.0-0.2) 10^3/uL 0.05 PT (9.3-11.0) sec 10.5 INR (0.9-1.1) 1.0 Sodium (136-145) mmol/L 138 Potassium (3.5-5.1) mmol/L 5.0 Chloride (98-107) mmol/L 101 Carbon Dioxide (21.0-32.0) mmol/L 31.0 Anion Gap (3-11) mmol/L 6.0 BUN (7-18) mg/dL 25 H Creatinine (0.55-1.02) mg/dL 2.3 H D Estimated GFR/1.73 m2 (mL/min/1.73m2) 21.15 Glucose (74-106) mg/dL 207 H Calcium (8.5-10.1) mg/dL 9.8 Magnesium (1.8-2.4) mg/dL 2.1 Total Bilirubin (0.2-1.0) mg/dL 0.2 AST (15-37) U/L 16 ALT (14-59) U/L 15 Alkaline Phosphatase (46-116) U/L 96 Troponin I (<0.06) ng/mL < 0.05 Total Protein (6.4-8.2) g/dL 7.2 Albumin (3.4-5.0) g/dL 3.0 L TSH (0.36-3.74) uIU/mL 1.47 Urine Color (Yellow) Urine Clarity (Clear) Urine pH (5-8) Ur Specific [place] (1.005-1.025) Urine Protein (Negative) mg/dL Urine Ketones (Negative) mg/dL Urine Blood (Negative) Urine Nitrite (Negative) Urine Bilirubin (Negative) Urine Urobilinogen (Up TO 0.2) EU/dL Ur Leukocyte Esterase (Negative) Urine RBC (0-2) HPF Urine WBC (0-5) HPF Ur Epithelial Cells (Negative) HPF Urine Crystals (Negative) HPF Urine Bacteria (Negative) HPF Urine Casts (Negative) LPF Urine Mucus (Negative) Ur Culture Indicated? Urine Glucose (Negative) mg/dL Urine Opiates Screen (Negative) Urine Methadone Screen (Negative) Ur Barbiturates Screen (Negative) Ur Tricyclics Screen (Negative) Ur Amphetamines Screen (Negative) U Benzodiazepines Scrn (Negative) Urine Cocaine Screen (Negative) Ur THC Screen (Negative) Ethyl Alcohol (<3) mg/dL < 3.0 COVID-19 Source Range/Units 01/28/21 01/28/21 01/28/21 12:35 12:35 15:21 WBC (4.4-10.8) 10^3/uL RBC (3.93-5.22) 10^6/uL Hgb (11.2-15.7) g/dL Hct (36.0-46.0) % MCV (80-95) fL MCH (27.0-33.0) pg MCHC (32.0-36.0) % RDW (11.7-14.6) % Plt Count (130-400) 10^3/uL MPV (8.0-11.0) fL Immature Gran % Neutrophils % Lymphocytes % Monocytes % Eosinophils % Basophils % Nucleated RBC % % Absolute Neutrophils (1.2-6.7) 10^3/uL Absolute Lymphocytes (1.2-3.4) 10^3/uL Absolute Monocytes (0.1-0.8) 10^3/uL Absolute Eosinophils (0.0-0.7) 10^3/uL Absolute Basophils (0.0-0.2) 10^3/uL PT (9.3-11.0) sec INR (0.9-1.1) Sodium (136-145) mmol/L Potassium (3.5-5.1) mmol/L Chloride (98-107) mmol/L Carbon Dioxide (21.0-32.0) mmol/L Anion Gap (3-11) mmol/L BUN (7-18) mg/dL Creatinine (0.55-1.02) mg/dL Estimated GFR/1.73 m2 (mL/min/1.73m2) Glucose (74-106) mg/dL Calcium (8.5-10.1) mg/dL Magnesium (1.8-2.4) mg/dL Total Bilirubin (0.2-1.0) mg/dL AST (15-37) U/L ALT (14-59) U/L Alkaline Phosphatase (46-116) U/L Troponin I (<0.06) ng/mL Total Protein (6.4-8.2) g/dL Albumin (3.4-5.0) g/dL TSH (0.36-3.74) uIU/mL Urine Color (Yellow) Yellow Urine Clarity (Clear) Clear Urine pH (5-8) 5.5 Ur Specific [place] (1.005-1.025) 1.010 Urine Protein (Negative) mg/dL Trace H Urine Ketones (Negative) mg/dL Trace H Urine Blood (Negative) Negative Urine Nitrite (Negative) Negative Urine Bilirubin (Negative) Negative Urine Urobilinogen (Up TO 0.2) EU/dL 0.2 Ur Leukocyte Esterase (Negative) Trace H Urine RBC (0-2) HPF 0-2 Urine WBC (0-5) HPF 20-50 H Ur Epithelial Cells (Negative) HPF Few Urine Crystals (Negative) HPF Negative Urine Bacteria (Negative) HPF Rare Urine Casts (Negative) LPF 0-2 Hyaline Urine Mucus (Negative) Negative Ur Culture Indicated? Yes Urine Glucose (Negative) mg/dL Negative Urine Opiates Screen (Negative) Negative Urine Methadone Screen (Negative) Negative Ur Barbiturates Screen (Negative) Negative Ur Tricyclics Screen (Negative) Negative Ur Amphetamines Screen (Negative) Negative U Benzodiazepines Scrn (Negative) Negative Urine Cocaine Screen (Negative) Negative Ur THC Screen (Negative) Negative Ethyl Alcohol (<3) mg/dL COVID-19 Source Nasal/Nares HPI General Mode of arrival: EMS. Date/Time Provider Initiated Documentation: 01/28/21 11:13. Limitations to Documentation: altered mental status. Information obtained by: patient and EMS. HPI Narrative: This is a 65-year-old female, presenting from a long term via EMS, past medical history that includes paranoid schizophrenia, chronic back pain, COPD, diabetes, DNR, DNI, GERD, hypertension, intracranial aneurysm, migraines, osteoarthritis, current smoker, presenting to the ER for evaluation of altered mental status. Patient had a fall yesterday down a staircase, seen in the ER and after a trauma work-up was completed, diagnosed with a proximal humeral fracture, sling provided, and discharged back to her long term. Patient to Tylenol but did not receive any narcotic medication. She went to bed feeling well, awoke this morning, altered, confused, subsequently sent to the ER for further evaluation. Denies recent illness, no additional fall since yesterday. She presents to the ER not wearing a sling. Patient is somnolent upon arrival, difficult to partake. Her only complaint right now is that of right shoulder pain from the fall Related Data Home Medications Medication Instructions Recorded Confirmed latanoprost 1 drp OPHTHALMIC (EYE) .QHS 12/17/18 01/28/21 aspirin 81 mg tablet 81 mg PO DAILY 07/14/19 01/28/21 clonazepam 0.5 mg tablet 0.5 mg PO BID tab 07/14/19 01/28/21 clozapine 100 mg tablet 200 mg PO QHS tab 07/14/19 01/28/21 nicotine [Nicoderm CQ] 7 mg TRANSDERMAL Q24H PRN 08/28/19 01/28/21 polyethylene glycol 3350 [Miralax] 17 g PO DAILY 08/28/19 01/28/21 melatonin 3 mg PO HS 08/30/19 01/28/21 alendronate 70 mg tablet 70 mg PO QWEEK 06/08/20 01/28/21 citalopram 20 mg PO HS 08/07/20 01/28/21 simvastatin 20 mg PO HS 08/07/20 01/28/21 bisacodyl [Dulcolax (bisacodyl)] 10 mg PO .Q72H prn #7 tab 08/27/20 01/28/21 acetylcysteine [NAC] 1,200 mg PO BID 09/01/20 01/28/21 cholecalciferol (vitamin D3) 1,000 mcg PO DAILY 09/01/20 01/28/21 [Vitamin D3] clozapine 25 mg PO QAM 09/01/20 01/28/21 cyclobenzaprine 5 mg PO PRN PRN 09/01/20 01/28/21 gabapentin 100 mg PO DAILY PRN 09/01/20 01/28/21 gabapentin 200 mg PO HS 09/01/20 01/28/21 metformin 750 mg PO BID 09/01/20 01/28/21 olanzapine 2.5 mg PO Q8H PRN 09/01/20 01/28/21 albuterol sulfate 90 mcg/actuation 1 puff INHALATION ONCE 09/13/20 01/28/21 aerosol inhaler brimonidine 0.2 %-timolol 0.5 % 1 drp OPHTHALMIC (EYE) BID 09/13/20 01/28/21 eye drops calcium carbonate-vitamin D3 600 1 cap PO BID 09/13/20 01/28/21 mg (1,500 mg)-400 unit capsule ferrous sulfate 325 mg (65 mg 325 mg PO TID 09/13/20 01/28/21 iron) tablet,delayed release nystatin-triamcinolone 100,000 1 applic TOPICAL DAILY 09/13/20 01/28/21 unit/g-0.1 % topical cream cyanocobalamin (vitamin B-12) 1,000 mcg PO DAILY 01/27/21 01/28/21 docusate sodium 100 mg PO QHS PRN 01/27/21 01/28/21 nicotine (polacrilex) 2 mg PO Q1H 01/27/21 01/28/21 Previous Rx's Medication Instructions Recorded bisacodyl [Dulcolax (bisacodyl)] 10 mg PO .Q72H prn #7 tab 08/27/20 Allergies Allergy/AdvReac Type Severity Reaction Status Date / Time fluphenazine enanthate AdvReac Severe almost Verified 01/28/21 11:20 [From Prolixin] last time they gave it to me fluphenazine HCl AdvReac Severe almost Verified 01/28/21 11:20 [From Prolixin] last time they gave it to me haloperidol [From Haldol] AdvReac Mild doesn't Verified 01/28/21 11:20 agree with me haloperidol lactate AdvReac Mild doesn't Verified 01/28/21 11:20 [From Haldol] agree with me chlorpromazine HCl AdvReac Unknown per pt Verified 01/28/21 11:20 [From Thorazine] [place] [facility] [place] AdvReac Unknown pt list Verified 01/28/21 11:20 from [facility] [place]uprofen AdvReac Unknown per pt Verified 01/28/21 11:20 [place] [facility] [place] AdvReac Unknown per pt Verified 01/28/21 11:20 loist [place] [facility] [place] paliperidone [From Invega] AdvReac Unknown per pt Verified 01/28/21 11:20 [place] [facility] [place] Penicillins AdvReac Unknown per pt Verified 01/28/21 11:20 [place] [facility] [place] Sulfa (Sulfonamide AdvReac Unknown per pt Verified 01/28/21 11:20 Antibiotics) [place] [facility] [place] General ALEX: 3 Review of Systems Constitutional Constitutional: Denies fatigue, Denies fever(s) and Reports headache(s) Eyes Eyes: Denies change in vision ENT Ears, Nose, Mouth, and Throat: Reports headache(s) and Denies neck pain Cardiovascular Cardiovascular: Denies chest pain and Denies dyspnea Respiratory Respiratory: Denies cough and Denies dyspnea Gastrointestinal Gastrointestinal: Denies abdominal pain, Denies nausea and Denies vomiting Genitourinary Genitourinary: Denies dysuria Musculoskeletal Musculoskeletal: Denies neck pain Integumentary/Breasts Skin/Breast: Denies rash Neurologic Neurologic: Reports headache(s) Endocrine Endocrine: Denies fatigue [facility] Medical History Ankle pain, left Auditory hallucinations Back pain Calcium kidney stone Chronic constipation COPD (chronic obstructive pulmonary disease) Depressive disorder Diabetes mellitus DNI (do not intubate) DNR (do not resuscitate) Falls Fatigue Fracture of orbital floor, left side, sequela GERD (gastroesophageal reflux disease) Glaucoma Headache Hip pain, bilateral Hyperlipidemia Hypertension Insomnia Intracranial aneurysm Knee pain, bilateral Low back pain Lumbar back pain Migraine headache with aura Migraine headache without aura Osteoarthritis Overweight Paranoid schizophrenia POLST (Physician Orders for Life-Sustaining Treatment) Polyarthralgia Tobacco use disorder Toe infection Umbilical hernia without mention of obstruction or gangrene Urinary frequency Vitamin D deficiency Surgical History H/O: hysterectomy History of bilateral tubal ligation Status post coil embolization of cerebral aneurysm Family History Father Colon cancer Renal cancer Sister Breast cancer Mother Abdominal aortic aneurysm Brother Psychiatric illness Social History Smoking/Tobacco Use Status: Current every day Tobacco Type: cigarettes Smoking risk assessment performed?: Yes Alcohol Intake: former Drug use: Current Sobriety Substance use type: does not use Do you feel safe at home: Yes Do you feel safe in your relationship?: Yes Additional Social history: [facility] Exam Const General: cooperative, no acute distress and ill appearing chronically Orientation: alert, awake, oriented to person and oriented to place HENMT Head: normal to inspection, normocephalic and atraumatic Face and sinus: normal facial exam Mouth: moist mucous membranes abnormal (Slightly dry) Eyes General: appearance normal, both eyes and all related structures Alignment and Position: alignment normal Periorbital: periorbital findings normal Eyelids: eyelids normal Conjunctivae: conjunctivae normal Sclera: sclerae normal Cornea: corneas normal Pupils: PERRL EOM: EOM intact bilaterally Direct ophthalmoscopy: normal light reflex Neck Neck: normal visual inspection, full ROM, trachea midline, supple and nontender Resp Effort & Inspection: normal respiratory effort and able to speak in complete sentences Auscultation: diminished lung sounds bilaterally in the lower lung [place] Cardio Rate: regular rate Rhythm: regular rhythm GI Palpation: soft and nontender Back/Spine/Pelvis Back: no CVA tenderness and No back tenderness Skin General skin exam: no rashes or lesions noted Neuro General: patient alert, patient awake, oriented Patient Orientation: Person and Place, moves all extremities and no focal motor deficits Cognition: normal cognition Speech: speech normal Motor: muscle tone normal throughout Sensory Exam: no sensory deficits noted Extrem Other: Diffuse proximal right humeral tenderness, shoulder held in adduction. Skin is intact. Normal radial pulse. Normal capillary refill. Axillary nerve function intact. Other extremities unremarkable. Psych Appearance: grossly normal Mental Status: mental status grossly normal Critical Care Time Critical Care Time Critical Care Time: Yes Total Critical Care Time: 35 Attestation: Upon my evaluation, this patient had a high probability of clinically significant, life-threatening deterioration due to their current medical conditions, which required my direct attention, intervention, and personal management. I have personally provided greater than 30 minutes of critical care time exclusive of the time spend on separately billable procedures. Time includes obtaining a history, examining the patient, pulse oximetry, review of laboratory data, radiology results, discussion with consultants, arranging urgent treatment with development of a management plan, evaluation of patient's response to treatment, and monitoring for potential decompensation. Interventions were performed as documented above.
[2021-01-28 12:23] LABS: Abs Immature Grans 0.05 10^3/uL (0.0-0.06); Absolute Basophil Count 0.05 10^3/uL (0.0-0.2); Absolute Lymphocyte Count 1.35 10^3/uL (1.2-3.4); Absolute Monocyte Count 0.69 10^3/uL (0.1-0.8); Basophils % 0.5; Eosinophils % 0.5; HCT 30.5 % (36.0-46.0); HGB 9.7 g/dL (11.2-15.7); Immature Grans % 0.5; Lymphocytes % 12.3; MCH 29.6 pg (27.0-33.0); MCHC 31.8 % (32.0-36.0); MPV 9.2 fL (8.0-11.0); Monocytes % 6.3; Neutrophils % 79.9; Nucleated RBC 0 %; Platelet Count 225 10^3/uL (130-400); RBC 3.28 10^6/uL (3.93-5.22); RDW 13.3 % (11.7-14.6); RDW-SD 45.6 fL; WBC 10.99 10^3/uL (4.4-10.8)
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
[2021-01-28 12:24] LABS: Absolute Eosinophil Count 0.05 10^3/uL (0.0-0.7); Absolute Neutrophil Count 8.78 10^3/uL (1.2-6.7)
[2021-01-28 12:38] LABS: Prothrombin Time 10.5 sec (9.3-11.0)
[2021-01-28 12:46] LABS: Bilirubin Negative (Negative); Blood Negative (Negative); Clarity Clear (Clear); Glucose Negative (Negative); Ketones Trace mg/dL (Negative); Leukocyte Esterase Trace (Negative); Nitrite Negative (Negative); Urobilinogen 0.2 EU/dL (Up TO 0.2); pH 5.5 (5-8)
[2021-01-28 12:48] LABS: ALT 15 U/L (14-59); AST 16 U/L (15-37); Alkaline Phosphatase 96 U/L (46-116); BUN 25 mg/dL (7-18); Bilirubin, Total 0.2 mg/dL (0.2-1.0); CREATININE 2.3 mg/dL (0.55-1.02); Calcium 9.8 mg/dL (8.5-10.1); Chloride 101 mmol/L (98-107); ETHANOL BLOOD < 3.0 mg/dL (<3); Estimated GFR 21.15 (mL/min/1.73m2); Glucose 207 mg/dL (74-106); Magnesium 2.1 mg/dL (1.8-2.4); Sodium 138 mmol/L (136-145); TSH (W/Ref FT4) 1.47 uIU/mL (0.36-3.74); Total Protein 7.2 g/dL (6.4-8.2)
[2021-01-28 12:49] LABS: Troponin I < 0.05 ng/mL (<0.06)
[2021-01-28 12:53] LABS: Bacteria Rare HPF (Negative); C & S Indicated? Yes; Casts 0-2 Hyaline LPF (Negative); Crystals Negative HPF (Negative); Epithelial Cells Few HPF (Negative); Mucus Negative (Negative); RBC 0-2 HPF (0-2); WBC 20-50 HPF (0-5)
[2021-01-28 13:01] LABS: *AMPHETAMINES SCREEN URINE Negative (Negative); *BARBITURATES SCREEN URINE Negative (Negative); *BENZODIAZEPINES SCREEN URINE Negative (Negative); Cannabinoids THC Negative (Negative); Cocaine Screen,Urine Negative (Negative); METHADONE URINE SCREEN Negative (Negative); OPIATES URINE SCREEN Negative (Negative); Tricyclic Antidepressants Negative (Negative)
--- NOTE | 2021-01-28 14:44 | NUR.NOTE ---
Nursing Note: Contacted [facility] and spoke with md do [facility] Th[facility]. Thao was updated that Nya will be admitted to inpatient services.
--- NOTE | 2021-01-28 14:59 | HPE_ITS ---
Date of service: 01/28/21 Time of Service: 14:59 Assessment and Plan Assessment and plan (1) Closed fracture of proximal end of right humerus: Status: Acute Assessment and plan: continue sling PT/OT referral pain management orthopedic f/u (2) Diabetes mellitus: Status: Chronic Assessment and plan: diabetic diet sliding scale ac/hs hold metformin in setting of increased creatinine Qualifiers: Diabetes mellitus complication status: without complication Diabetes mellitus fdc insulin use: without fdc use Diabetes mellitus type: type 2 Qualified Code(s): E11.9 - Type 2 diabetes mellitus without compli cations (3) Kidney failure: Status: Chronic Assessment and plan: acute on chronic avoid nephrotoxic drugs and renal dose as needed. follow closely (4) Paranoid schizophrenia: Status: Acute Assessment and plan: continue home medication (5) Discharge planning issues: Status: Acute Assessment and plan: care management following referral placed for swing level care, anticipate a bed Sunday. discussed with DR Poon History of Present Illness History of Present Illness Chief Complaint: falls Narrative: this is a 65 year old female who lives in assisted living facility who had a mechanical fall down a flight of stairs, she was evaluated in the ED and was found to have a fractured humerus. she was placed in a sling and discharged back to the facility ([facility]) but has been unable to manage with her sling and walker. she was reportedly altered but now at baseline. ED evaluation was unremarkable. it is thought her symptoms are post concussive and there was concern about her safely being able to be discharged back and manage walker with arm in a sling. case management was consulted and referral placed to [facility] and rehab. they do accept her but bed not available today so she will stay here under observation status while awaiting bed availability. they anticipate tomorrow. Review of Systems All systems reviewed & are unremarkable except as noted in HPI and below [facility] Medical History Ankle pain, left Auditory hallucinations Back pain Calcium kidney stone Chronic constipation COPD (chronic obstructive pulmonary disease) Depressive disorder Diabetes mellitus DNI (do not intubate) DNR (do not resuscitate) Falls Fatigue Fracture of orbital floor, left side, sequela GERD (gastroesophageal reflux disease) Glaucoma Headache Hip pain, bilateral Hyperlipidemia Hypertension Insomnia Intracranial aneurysm Knee pain, bilateral Low back pain Lumbar back pain Migraine headache with aura Migraine headache without aura Osteoarthritis Overweight Paranoid schizophrenia POLST (Physician Orders for Life-Sustaining Treatment) Polyarthralgia Tobacco use disorder Toe infection Umbilical hernia without mention of obstruction or gangrene Urinary frequency Vitamin D deficiency Surgical History H/O: hysterectomy History of bilateral tubal ligation Status post coil embolization of cerebral aneurysm Family History Father Colon cancer Renal cancer Sister Breast cancer Mother Abdominal aortic aneurysm Brother Psychiatric illness Social History Smoking/Tobacco Use Status: Current every day Tobacco Type: cigarettes Smoking risk assessment performed?: Yes Alcohol Intake: former Drug use: Current Sobriety Substance use type: does not use Do you feel safe at home: Yes Do you feel safe in your relationship?: Yes Additional Social history: unable to assess [facility] Allergies and Home Medications Allergies Allergy/AdvReac Type Severity Reaction Status Date / Time fluphenazine enanthate AdvReac Severe almost Verified 01/28/21 11:20 [From Prolixin] last time they gave it to me fluphenazine HCl AdvReac Severe almost Verified 01/28/21 11:20 [From Prolixin] last time they gave it to me haloperidol [From Haldol] AdvReac Mild doesn't Verified 01/28/21 11:20 agree with me haloperidol lactate AdvReac Mild doesn't Verified 01/28/21 11:20 [From Haldol] agree with me chlorpromazine HCl AdvReac Unknown per pt Verified 01/28/21 11:20 [From Thorazine] list from [facility] codeine AdvReac Unknown pt list Verified 01/28/21 11:20 from [facility] ibuprofen AdvReac Unknown per pt Verified 01/28/21 11:20 list from [facility] nicotine AdvReac Unknown per pt Verified 01/28/21 11:20 loist from [facility] paliperidone [From Invega] AdvReac Unknown per pt Verified 01/28/21 11:20 list from [facility] Penicillins AdvReac Unknown per pt Verified 01/28/21 11:20 list from [facility] Sulfa (Sulfonamide AdvReac Unknown per pt Verified 01/28/21 11:20 Antibiotics) list from [facility] Home Medications Medication Instructions Recorded Confirmed Type latanoprost 1 drp OPHTHALMIC (EYE) .QHS 12/17/18 01/28/21 History aspirin 81 mg tablet 81 mg PO DAILY 07/14/19 01/28/21 History clonazepam 0.5 mg tablet 0.5 mg PO BID tab 07/14/19 01/28/21 History clozapine 100 mg tablet 200 mg PO QHS tab 07/14/19 01/28/21 History nicotine [Nicoderm CQ] 7 mg TRANSDERMAL Q24H PRN 08/28/19 01/28/21 History polyethylene glycol 3350 [Miralax] 17 g PO DAILY 08/28/19 01/28/21 History melatonin 3 mg PO HS 08/30/19 01/28/21 History alendronate 70 mg tablet 70 mg PO QWEEK 06/08/20 01/28/21 History citalopram 20 mg PO HS 08/07/20 01/28/21 History simvastatin 20 mg PO HS 08/07/20 01/28/21 History bisacodyl [Dulcolax (bisacodyl)] 10 mg PO .Q72H prn #7 tab 08/27/20 01/28/21 Rx acetylcysteine [NAC] 1,200 mg PO BID 09/01/20 01/28/21 History cholecalciferol (vitamin D3) 1,000 mcg PO DAILY 09/01/20 01/28/21 History [Vitamin D3] clozapine 25 mg PO QAM 09/01/20 01/28/21 History cyclobenzaprine 5 mg PO PRN PRN 09/01/20 01/28/21 History gabapentin 100 mg PO DAILY PRN 09/01/20 01/28/21 History gabapentin 200 mg PO HS 09/01/20 01/28/21 History metformin 750 mg PO BID 09/01/20 01/28/21 History olanzapine 2.5 mg PO Q8H PRN 09/01/20 01/28/21 History albuterol sulfate 90 mcg/actuation 1 puff INHALATION ONCE 09/13/20 01/28/21 History aerosol inhaler brimonidine 0.2 %-timolol 0.5 % 1 drp OPHTHALMIC (EYE) BID 09/13/20 01/28/21 History eye drops calcium carbonate-vitamin D3 600 1 cap PO BID 09/13/20 01/28/21 History mg (1,500 mg)-400 unit capsule ferrous sulfate 325 mg (65 mg 325 mg PO TID 09/13/20 01/28/21 History iron) tablet,delayed release nystatin-triamcinolone 100,000 1 applic TOPICAL DAILY 09/13/20 01/28/21 History unit/g-0.1 % topical cream cyanocobalamin (vitamin B-12) 1,000 mcg PO DAILY 01/27/21 01/28/21 History docusate sodium 100 mg PO QHS PRN 01/27/21 01/28/21 History nicotine (polacrilex) 2 mg PO Q1H 01/27/21 01/28/21 History Exam Const General: cooperative, no acute distress and ill appearing chronically Orientation: alert, awake, oriented to person and oriented to place [facility] Head: normal to inspection, normocephalic and atraumatic Face and sinus: normal facial exam Mouth: moist mucous membranes abnormal (Slightly dry) Eyes General: appearance normal, both eyes and all related structures Alignment and Position: alignment normal Periorbital: periorbital findings normal Eyelids: eyelids normal Conjunctivae: conjunctivae normal Sclera: sclerae normal Cornea: corneas normal Pupils: PERRL EOM: EOM intact bilaterally Direct ophthalmoscopy: normal light reflex Neck Neck: normal visual inspection, full ROM, trachea midline, supple and nontender Resp Effort & Inspection: normal respiratory effort and able to speak in complete sentences Auscultation: diminished lung sounds bilaterally in the lower lung [place] Cardio Rate: regular rate Rhythm: regular rhythm GI Palpation: soft and nontender Back/Spine/Pelvis Back: no CVA tenderness and No back tenderness Skin General skin exam: no rashes or lesions noted Neuro General: patient alert, patient awake, oriented Patient Orientation: Person and Place and no focal motor deficits Cognition: normal cognition Speech: speech normal Motor: muscle tone normal throughout Sensory Exam: no sensory deficits noted Extrem Right upper extremity: shoulder/upper arm (in a sling, good hand vegetable sorter, 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); ROM limited and no edema Psych Appearance: grossly normal Mental Status: mental status grossly normal Results Labs Result diagrams: 01/28/21 12:17 01/28/21 12:17 Labs: Laboratory Results - last 24 hr 01/28/21 01/28/21 01/28/21 12:17 12:17 12:17 WBC 10.99 H RBC 3.28 L Hgb 9.7 L Hct 30.5 L MCV 93.0 MCH 29.6 MCHC 31.8 L RDW 13.3 Plt Count 225 MPV 9.2 Immature Gran % 0.5 Neutrophils % 79.9 Lymphocytes % 12.3 Monocytes % 6.3 Eosinophils % 0.5 Basophils % 0.5 Nucleated RBC % 0 Absolute Neutrophils 8.78 H Absolute Lymphocytes 1.35 Absolute Monocytes 0.69 Absolute Eosinophils 0.05 Absolute Basophils 0.05 PT 10.5 INR 1.0 Sodium 138 Potassium 5.0 Chloride 101 Carbon Dioxide 31.0 Anion Gap 6.0 BUN 25 H Creatinine 2.3 H D Estimated GFR/1.73 m2 21.15 Glucose 207 H Calcium 9.8 Magnesium 2.1 Total Bilirubin 0.2 AST 16 ALT 15 Alkaline Phosphatase 96 Troponin I < 0.05 Total Protein 7.2 Albumin 3.0 L TSH 1.47 Urine Color Urine Clarity Urine pH Ur Specific [place] Urine Protein Urine Ketones Urine Blood Urine Nitrite Urine Bilirubin Urine Urobilinogen Ur Leukocyte Esterase Urine RBC Urine WBC Ur Epithelial Cells Urine Crystals Urine Bacteria Urine Casts Urine Mucus Ur Culture Indicated? Urine Glucose Urine Opiates Screen Urine Methadone Screen Ur Barbiturates Screen Ur Tricyclics Screen Ur Amphetamines Screen U Benzodiazepines Scrn Urine Cocaine Screen Ur THC Screen Ethyl Alcohol < 3.0 01/28/21 01/28/21 12:35 12:35 WBC RBC Hgb Hct MCV MCH MCHC RDW Plt Count MPV Immature Gran % Neutrophils % Lymphocytes % Monocytes % Eosinophils % Basophils % Nucleated RBC % Absolute Neutrophils Absolute Lymphocytes Absolute Monocytes Absolute Eosinophils Absolute Basophils PT INR Sodium Potassium Chloride Carbon Dioxide Anion Gap BUN Creatinine Estimated GFR/1.73 m2 Glucose Calcium Magnesium Total Bilirubin AST ALT Alkaline Phosphatase Troponin I Total Protein Albumin TSH Urine Color Yellow Urine Clarity Clear Urine pH 5.5 Ur Specific [place] 1.010 Urine Protein Trace H Urine Ketones Trace H Urine Blood Negative Urine Nitrite Negative Urine Bilirubin Negative Urine Urobilinogen 0.2 Ur Leukocyte Esterase Trace H Urine RBC 0-2 Urine WBC 20-50 H Ur Epithelial Cells Few Urine Crystals Negative Urine Bacteria Rare Urine Casts 0-2 Hyaline Urine Mucus Negative Ur Culture Indicated? Yes Urine Glucose Negative Urine Opiates Screen Negative Urine Methadone Screen Negative Ur Barbiturates Screen Negative Ur Tricyclics Screen Negative Ur Amphetamines Screen Negative U Benzodiazepines Scrn Negative Urine Cocaine Screen Negative Ur THC Screen Negative Ethyl Alcohol Last Vital Signs Temp 36.7 C 01/28/21 11:18 Pulse 81 01/28/21 12:31 Resp 18 01/28/21 14:06 BP 129/58 L 01/28/21 12:31 Pulse Ox 93 01/28/21 12:40
[2021-01-28] MEDS: Normal Saline 1,000 ML 1000 ML IV (15:03)
[2021-01-28 15:27] LABS: Source Nasal/Nares
[2021-01-28 16:14] LABS: Troponin I < 0.05 ng/mL (<0.06)
[2021-01-28 16:27] LABS: COVID-19 PCR Negative (Negative)
--- OUTSIDE RECORDS SUMMARY | 2021-01-28 16:46 | XMS_ITS ---
:1955 Author Organization [facility] Address [address] [place] [address] Care Team Providers Name Role Phone Deloresman Unavailable Unavailable PROBLEMS Type Condition ICD9-CM Code WIT42-DQ Code Onset Condition SNO MED Code Dates Status Problem Hyperkeratosis L85.9 Active 29295 000 Problem Diabetes E11.9 Active 730764351 Problem Onychomycosis B35.1 Active 035846 008 ALLERGIES Substance Reaction Event Type Date [...] Activ e ENCOUNTERS Encounter Location Date Diagnosis [facility] Jul, Hyper keratosis L85.9 ; [place] [address] Onychomycos is B35.1 ; Foot pain, bilateral M79.671 and Diabetes E11.9 [facility] Feb, Hyper keratosis L85.9 ; [place] [address] Onychomycos is B35.1 and Foot pain, bilateral M79.671 [facility] Sep, Hyper keratosis L85.9 ; [place] [address] Onychomycos is B35.1 and Foot pain, bilateral M79.671 [facility] Jun, Hyper keratosis L85.9 ; [place] [address] Onychomycos is B35.1 ; Foot pain, bilateral M79.671 and Xerosis of skin L85.3 [facility] [address] [facility] [address] Mar, 2015 Hyper keratosis L85.9 ; [place] [address] Onychomycos is B35.1 and Foot pain, bilateral M79.671 [facility] [address] [facility], 10 Feb, [address] [place] [address] IMMUNIZATIONS No Known Immunizations SOCIAL HISTORY Qualifiers [...] topically 1 katlyn 12h Activ e TOPICAL 089699 2 times a day units/g glipiZIDE 10 [...] on it. JL, Inputting information Insurance Providers [facility] Health Member Patient Patient Patient Patient Patient Subscriber Subscriber Subscriber Group Insurance Plan Plan Plan Plan ID Relationship Address Phone Name Date of ID Name Date of No Type Insurance Insurance Insurance Coverage to Subscriber Address Phone Name Dates SELF PAY ANY STREET SELF PAY self NISA [id number] [place] [id number] INSURANCE MEDICAID [place] MEDICAID self NISA [id number] [place] [facility] [id number] MEDICARE 3000 GOFF[place] MEDICARE self NISA [id number] [facility] [id number] MEDICAID [place] MEDICAID self N[place] [id number] [place] [facility] [id number] S-MEDICAID EDS [id number] S-MEDICAID self NISA [id number] [place] [facility] [id number] MEDICAL (GENERAL) HISTORY Type Description Date Medical History Schizophrenia Surgical History Appendectomy Surgical History Tubal Ligation Surgical History Hysterectomy Surgical History Tibia fracture left leg Surgical History Broken Right Rib Surgical History Brain Surgery-aneurysm 2009 Surgical History Vein stripping bilateral Surgical History Cataract Bilateral Hospitalization History Childbirth X2
[2021-01-28] MEDS: Normal Saline Flush 10 ML SYR (18:37)
[2021-01-28] MEDS: clonazePAM 0.5 MG TAB PO (21:15)
[2021-01-28] MEDS: Melatonin 3 MG TAB PO (21:15)
[2021-01-28] MEDS: Acetaminophen 325 MG TAB 650 MG PO (21:16)
[2021-01-28] MEDS: Calcium 600mg/Vit D 200U TAB 3 TAB PO (21:16)
[2021-01-28] MEDS: Ferrous Sulfate 325 MG TAB PO (21:17)
[2021-01-28] MEDS: Citalopram 20 MG TAB PO (21:17)
[2021-01-28] MEDS: Simvastatin 20 MG TAB PO (21:17)
[2021-01-28] MEDS: Gabapentin 100 MG CAP 200 MG PO (21:18)
[2021-01-28] MEDS: Latanoprost 0.005% 2.5 ML BTL OP (21:19)
[2021-01-28] MEDS: Acetylcysteine 20% *ORAL/INHALED* 6000 MG/30 ML VIAL 1200 MG PO (22:59)
[2021-01-29 01:03] VITALS: BP 111/70; PULSE 91; RESP 20; TEMP 36.1; O2SAT 90
[2021-01-29 07:11] LABS: Abs Immature Grans 0.04 10^3/uL (0.0-0.06); Absolute Basophil Count 0.05 10^3/uL (0.0-0.2); Absolute Eosinophil Count 0.21 10^3/uL (0.0-0.7); Absolute Lymphocyte Count 1.56 10^3/uL (1.2-3.4); Absolute Monocyte Count 0.62 10^3/uL (0.1-0.8); Absolute Neutrophil Count 7.42 10^3/uL (1.2-6.7); Basophils % 0.5; Eosinophils % 2.1; HCT 27.6 % (36.0-46.0); HGB 8.8 g/dL (11.2-15.7); Immature Grans % 0.4; Lymphocytes % 15.8; MCH 29.5 pg (27.0-33.0); MCHC 31.9 % (32.0-36.0); MCV 92.6 fL (80-95); MPV 9.8 fL (8.0-11.0); Monocytes % 6.3; Neutrophils % 74.9; Nucleated RBC 0 %; Platelet Count 214 10^3/uL (130-400); RBC 2.98 10^6/uL (3.93-5.22); RDW 13.5 % (11.7-14.6); RDW-SD 46.2 fL
[2021-01-29 07:19] LABS: Anion Gap 7.2 mmol/L (3-11); BUN 33 mg/dL (7-18); CO2 28.8 mmol/L (21.0-32.0); CREATININE 3.5 mg/dL (0.55-1.02); Calcium 10.6 mg/dL (8.5-10.1); Chloride 103 mmol/L (98-107); Estimated GFR 13.03 (mL/min/1.73m2); Glucose 158 mg/dL (74-106); Potassium 5.5 mmol/L (3.5-5.1); Sodium 139 mmol/L (136-145)
[2021-01-29 07:41] LABS: Diff Comment Diff Reviewed; Hypochromasia 2+
[2021-01-29 08:06] VITALS: BP 116/66; PULSE 80; RESP 16; TEMP 37; O2SAT 95
[2021-01-29] MEDS: Cyanocobalamin 500 MCG TAB 1000 MCG PO (08:09)
[2021-01-29] MEDS: Polyethylene Glycol 3350 17 GM PACKET PO (08:09)
[2021-01-29] MEDS: Aspirin 81 MG CHEW PO (08:09)
[2021-01-29] MEDS: clonazePAM 0.5 MG TAB PO (08:10)
[2021-01-29] MEDS: Acetaminophen 325 MG TAB 650 MG PO ×3 (08:10→19:57)
[2021-01-29] MEDS: Cholecalciferol (Vitamin D3) 1,000 UNIT TAB 1000 UNITS PO (08:10)
[2021-01-29] MEDS: Calcium 600mg/Vit D 200U TAB 3 TAB PO (08:10)
[2021-01-29] MEDS: Ferrous Sulfate 325 MG TAB PO ×2 (08:10→19:57)
[2021-01-29] MEDS: Timolol 0.5% 5 ML BTL OP ×2 (08:11→19:57)
[2021-01-29] MEDS: Brimonidine 0.15% 5 ML BTL OP ×2 (08:12→19:58)
[2021-01-29 09:11] LABS: Creatine Kinase 255 U/L (26-192)
[2021-01-29] MEDS: Normal Saline 1,000 ML 1000 ML IV (09:15)
--- NOTE | 2021-01-29 09:27 | PT.INIE ---
Date of service: 01/29/21 Time of Service: 09:00 PT Notes Visit Reasons: Fractured Humerous Inpatient Physical Therapy Evaluation Date: 01/29/21 Referring Doctor: Annemarie Payan PT Orders: PT CONSULT: Evaluate and Treat Precautions: Standard, Fall Patient Profile/Admitting Diagnosis: Orders received for this 65 year old female who suffered a fall while at [facility] where she is currently a intermediate resident. Patient has been doing farely well per notes prior to her fall but did fall down and injured her right shoulder apparently fracturing her right humerus. As she was ambulating in the ED it was determined that her safety would be in question. She utilizes a walker at baseline and without use of the right side this was too difficult for her to negotiate. PMHX: Medical History Ankle pain, left Auditory hallucinations Back pain Calcium kidney stone Chronic constipation COPD (chronic obstructive pulmonary disease) Depressive disorder Diabetes mellitus DNI (do not intubate) DNR (do not resuscitate) Falls Fatigue Fracture of orbital floor, left side, sequela GERD (gastroesophageal reflux disease) Glaucoma Headache Hip pain, bilateral Hyperlipidemia Hypertension Insomnia Intracranial aneurysm Knee pain, bilateral Low back pain Lumbar back pain Migraine headache with aura Migraine headache without aura Osteoarthritis Overweight Paranoid schizophrenia POLST (Physician Orders for Life-Sustaining Treatment) Polyarthralgia Tobacco use disorder Toe infection Umbilical hernia without mention of obstruction or gangrene Urinary frequency Vitamin D deficiency Surgical History H/O: hysterectomy History of bilateral tubal ligation Status post coil embolization of cerebral aneurysm Social History/Home Situation: Current resident of [facility] Equipment Owned/DME: [facility] Subjective: Patient states she is very tired and sore. Objective: Patient very hard to engage and maintain alert status. She reluctantly agrees to participate with PT but needs constant sternal rubs and techniques for arousal Mental Status: Oriented to person and place Pain: 5/10 ROM: Right Upper Extremity: Wrist motion only Left Upper Extremity: MOtion through the shoulder flexes to 120 degrees, elbow motion WNL, wrist motion WNL Right Lower Extremity: WFL Left Lower Extremity: WFL Strength: Right Upper Extremity: Health Type Technician strength fair Left Upper Extremity: Shoulder flexion 4/5, biceps 4+/5, triceps 4+/5, intern product marketing manager strength good Right Lower Extremity: Globally 4+/5 Left Lower Extremity: Globally 4+/5 Bed Mobility/Transfers: Patient not appropriate for out of bed given her current state of drowsiness and inability for full alert arousal. Gait: Not tested due to current state Balance: Static Sitting: Dynamic Sitting: Static Standing: Dynamic Standing: Special Tests: Mobility Limitations Standardized Measure [facility] AM-PAC 6 clicks Basic Mobility Inpatient Short Form: Raw Score: 10 Standardized Score: 32.29 CMS Score: 76.75% Informed Consent/Education: Patient instructed in purpose of PT consult and plan of care. ASSESSMENT: Patient is a 65 year old female with hx of poor physical health Admitted with diagnosis of fall and subsequent right side humeral fracture. Patient presents with the following impairment level findings: Poor arousal, low level of active engagement, difficulty with use of upper and lower extremities. Limited ROM, decreased use of self transfers, ambulation intolerance. Pt will benefit from skilled therapy intervention in order to remedy their functional limitations and restore patient to a more appropriate and stable functional level. Impairments are contributing to the following functional limitations: AMPAC score 76.75% Patient is assessed as a High Complexity Initial Evaluation based on the following: History: see above Examination: see above Presentation: Unstable Decision Making: High due to AMPAC of 76.75% Goals: Goals X1 week 1. Supine-Sit Min Assist 2. Sit-Supine MIn Assist 3. Sit-Stand Min Assist 4. Stand-Sit Min Assist 5. Bed-Chair Min Assist 6. Gait With Min Assist and use of williams walker up to 50 feet Plan of Care/Treatment Plan: 1-2x/day, 7 days/week x 1 week. Plan of care has been reviewed with the MOLD RELEASE WORKER providing the service under Physical Therapy direction. Initiate Physical Therapy intervention for strengthening, bed mobility, transfers, gait, stairs, balance training, use of assistive device. DISCHARGE RECOMMENDATIONS: To senior living Facility once a bed is made ready for her. TREATMENT CODE/TIME: High Complexity Initial evaluation 73673 Time of treatment 900, 25 minutes of direct patient care [facility]
[2021-01-29] MEDS: Normal Saline 1,000 ML 125 ML IV (10:28)
--- NOTE | 2021-01-29 15:06 | PGE_ITS ---
Date of Service Date of service: 01/29/21 Time of Service: 15:06 Assessment and Plan Assessment and plan (1) AMS (altered mental status): Status: Acute Assessment and plan: ? d/t hypercalcemia. ? psychiatric disorder she is arousable and oriented when queried. treating hypercalcemia with fluids, supplements discontinued. head CT was negative 01/28, consider repeat if doesn't improve with treatment of hypercalcemia (2) Hypercalcemia: Status: Acute Assessment and plan: treating with aggressive fluids contributing: supplements, bone fracture, kidney failure. will follow closely consider calcitonin if does not respond. discussed with DR Hill (3) Kidney failure: Status: Chronic Assessment and plan: acute on chronic, no obstructing process seen on CT scan on 01/27. likely d/t dehydration. will bolus with 2 liters of NS and then 200 cc/hr. quan placed and will monitor urine output closely avoid nephrotoxic drugs and renal dose as needed. follow closely quan catheter placed (4) Closed fracture of proximal end of right humerus: Status: Acute Assessment and plan: continue sling PT/OT referral pain management orthopedic f/u (5) Diabetes mellitus: Status: Chronic Assessment and plan: diabetic diet sliding scale ac/hs hold metformin in setting of increased creatinine Qualifiers: Diabetes mellitus complication status: without complication Diabetes mellitus manager long term care insulin use: without mcfp use Diabetes mellitus type: type 2 Qualified Code(s): E11.9 - Type 2 diabetes mellitus without complications (6) Paranoid schizophrenia: Status: Acute Assessment and plan: continue home medication cloziril level sent (7) Discharge planning issues: Status: Acute Assessment and plan: care management following referral placed for swing level care, anticipate a bed Sunday. discussed with DR Poon Subjective Subjective Interval history since last seen: patient resting quietly in her bed, no acute distress but not too reactive with staff but arouses to state her name and where she is. has taken some PO at breakfast, declined lunch. pain seems managed. she has not voided in 8 hours, bladder scan under 200 and thats after receiving 1 liter of fluid. no respiratory distress Exam Const General: no acute distress and ill appearing chronically Nutritional Appearance: overweight Orientation: awake (arousable), oriented to person and oriented to place HENAR Head: normal to inspection, normocephalic and atraumatic Face and sinus: normal facial exam Mouth: moist mucous membranes abnormal (Slightly dry) Eyes General: appearance normal, both eyes and all related structures Alignment and Position: alignment normal Periorbital: periorbital findings normal Eyelids: eyelids normal Conjunctivae: conjunctivae normal Sclera: sclerae normal Cornea: corneas normal Pupils: PERRL EOM: EOM intact bilaterally Direct ophthalmoscopy: normal light reflex Neck Neck: normal visual inspection, full ROM, trachea midline, supple and nontender Resp Effort & Inspection: normal respiratory effort Auscultation: diminished lung sounds bilaterally in the lower lung [place] Cardio Rate: regular rate Rhythm: regular rhythm GI Palpation: soft Auscultation: normal bowel sounds General: bimanual renal exam normal bilaterally (quan placed, draining medium yellow urine) Back/Spine/Pelvis Back: no CVA tenderness and No back tenderness Skin General skin exam: no rashes or lesions noted Neuro General: patient awake and oriented Patient Orientation: Person and Place Cognition: abnormal cognition (sedate/) Motor: muscle tone normal throughout Extrem Right upper extremity: shoulder/upper arm (in a sling, good hand outbound sales consultant, 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); ROM limited and no edema Psych Appearance: grossly normal Mental Status: mental status grossly normal Objective Last Vital Signs Temp 37 C 01/29/21 08:06 Pulse 80 01/29/21 08:06 Resp 16 01/29/21 08:06 BP 116/66 01/29/21 08:06 Pulse Ox 95 01/29/21 08:06 Laboratory Results - last 24 hr 01/28/21 01/28/21 01/29/21 15:21 15:52 06:10 WBC RBC Hgb Hct MCV MCH MCHC RDW Plt Count MPV Immature Gran % Neutrophils % Lymphocytes % Monocytes % Eosinophils % Basophils % Nucleated RBC % Absolute Neutrophils Absolute Lymphocytes Absolute Monocytes Absolute Eosinophils Absolute Basophils RBC Morphology Hypochromasia Sodium 139 Potassium 5.5 H Chloride 103 Carbon Dioxide 28.8 Anion Gap 7.2 BUN 33 H Creatinine 3.5 H D Estimated GFR/1.73 m2 13.03 Glucose 158 H Calcium 10.6 H Creatine Kinase Troponin I < 0.05 COVID-19 Source Nasal/Nares SARS-CoV-2 (PCR) Negative 01/29/21 01/29/21 06:10 06:10 WBC 9.90 RBC 2.98 L Hgb 8.8 L Hct 27.6 L MCV 92.6 MCH 29.5 MCHC 31.9 L RDW 13.5 Plt Count 214 MPV 9.8 Immature Gran % 0.4 Neutrophils % 74.9 Lymphocytes % 15.8 Monocytes % 6.3 Eosinophils % 2.1 Basophils % 0.5 Nucleated RBC % 0 Absolute Neutrophils 7.42 H Absolute Lymphocytes 1.56 Absolute Monocytes 0.62 Absolute Eosinophils 0.21 Absolute Basophils 0.05 RBC Morphology See Below Hypochromasia 2+ Sodium Potassium Chloride Carbon Dioxide Anion Gap BUN Creatinine Estimated GFR/1.73 m2 Glucose Calcium Creatine Kinase 255 H Troponin I COVID-19 Source SARS-CoV-2 (PCR)
[2021-01-29 15:33] VITALS: BP 166/84; PULSE 84; RESP 22; TEMP 36.6; O2SAT 91
[2021-01-29 16:00] LABS: Anion Gap 5.3 mmol/L (3-11); BUN 34 mg/dL (7-18); CO2 28.7 mmol/L (21.0-32.0); Chloride 106 mmol/L (98-107); Glucose 142 mg/dL (74-106); Potassium 5.7 mmol/L (3.5-5.1); Sodium 140 mmol/L (136-145)
[2021-01-29 16:04] LABS: CREATININE 3.9 mg/dL (0.55-1.02); Calcium 11.7 mg/dL (8.5-10.1)
[2021-01-29] MEDS: Normal Saline 1,000 ML 150 ML IV (16:07)
[2021-01-29] MEDS: Normal Saline 1,000 ML 200 ML IV (20:34)
[2021-01-29] MEDS: Latanoprost 0.005% 2.5 ML BTL OP (21:25)
[2021-01-29] MEDS: Gabapentin 100 MG CAP 200 MG PO (21:25)
[2021-01-29] MEDS: Melatonin 3 MG TAB PO (21:25)
[2021-01-29] MEDS: Citalopram 20 MG TAB PO (21:26)
[2021-01-29] MEDS: Simvastatin 20 MG TAB PO (21:26)
[2021-01-29 23:39] VITALS: BP 128/70; PULSE 85; RESP 17; TEMP 36.3; O2SAT 93
[2021-01-30] MEDS: Normal Saline 1,000 ML 200 ML IV ×5 (01:15→22:07)
[2021-01-30 07:20] VITALS: BP 146/76; PULSE 88; RESP 15; TEMP 36.3; O2SAT 92
[2021-01-30 07:36] LABS: Abs Immature Grans 0.04 10^3/uL (0.0-0.06); Absolute Basophil Count 0.07 10^3/uL (0.0-0.2); Absolute Eosinophil Count 0.27 10^3/uL (0.0-0.7); Absolute Lymphocyte Count 1.27 10^3/uL (1.2-3.4); Absolute Monocyte Count 0.69 10^3/uL (0.1-0.8); Basophils % 0.7; Eosinophils % 2.7; HCT 25.9 % (36.0-46.0); HGB 8.1 g/dL (11.2-15.7); Immature Grans % 0.4; Lymphocytes % 12.5; MCH 29.5 pg (27.0-33.0); MCHC 31.3 % (32.0-36.0); MCV 94.2 fL (80-95); MPV 9.8 fL (8.0-11.0); Monocytes % 6.8; Neutrophils % 76.9; Nucleated RBC 0 %; RBC 2.75 10^6/uL (3.93-5.22); RDW 13.2 % (11.7-14.6); RDW-SD 45.4 fL; WBC 10.14 10^3/uL (4.4-10.8)
[2021-01-30] MEDS: Bisacodyl 5 MG TABEC 10 MG PO (07:45)
[2021-01-30] MEDS: Ferrous Sulfate 325 MG TAB PO ×3 (07:45→19:43)
[2021-01-30] MEDS: Acetaminophen 325 MG TAB 650 MG PO ×4 (07:45→19:43)
[2021-01-30] MEDS: Aspirin 81 MG CHEW PO (07:45)
[2021-01-30] MEDS: Cyanocobalamin 500 MCG TAB 1000 MCG PO (07:45)
[2021-01-30] MEDS: Polyethylene Glycol 3350 17 GM PACKET PO (07:45)
[2021-01-30] MEDS: Timolol 0.5% 5 ML BTL OP (07:46)
[2021-01-30] MEDS: Brimonidine 0.15% 5 ML BTL OP (07:46)
[2021-01-30 07:58] LABS: Diff Comment Diff Reviewed; Hypochromasia 2+; Platelet Count 214 10^3/uL (130-400)
[2021-01-30 08:00] LABS: ALT 8 U/L (14-59); AST 14 U/L (15-37); Albumin 2.5 g/dL (3.4-5.0); Alkaline Phosphatase 81 U/L (46-116); Anion Gap 9.8 mmol/L (3-11); BUN 34 mg/dL (7-18); Bilirubin, Total 0.2 mg/dL (0.2-1.0); CO2 23.2 mmol/L (21.0-32.0); Calcium 10.3 mg/dL (8.5-10.1); Chloride 110 mmol/L (98-107); Estimated GFR 10.85 (mL/min/1.73m2); Glucose 134 mg/dL (74-106); Potassium 5.7 mmol/L (3.5-5.1); Sodium 143 mmol/L (136-145); Total Protein 5.5 g/dL (6.4-8.2)
[2021-01-30 08:02] LABS: CREATININE 4.1 mg/dL (0.55-1.02)
[2021-01-30 08:27] LABS: Uric Acid 6.4 mg/dL (2.6-6.0)
[2021-01-30 09:25] LABS: Bilirubin Negative (Negative); Blood Moderate (Negative); Clarity Sl Cloudy (Clear); Glucose Negative (Negative); Ketones Trace mg/dL (Negative); Leukocyte Esterase Large (Negative); Nitrite Negative (Negative); Specific Gravity 1.015 (1.005-1.025); Urobilinogen 0.2 EU/dL (Up TO 0.2); pH 5.5 (5-8)
[2021-01-30 09:32] LABS: Epithelial Cells Many HPF (Negative); WBC 20-50 HPF (0-5)
[2021-01-30 09:33] LABS: Bacteria Moderate HPF (Negative); C & S Indicated? No/Sq. Contamination; Casts Negative LPF (Negative); Crystals Rare Amorphous HPF (Negative); Mucus Trace (Negative)
[2021-01-30] MEDS: Sodium Zirconium Cyclosilicate 10 GM PKT PO ×3 (10:09→22:12)
--- NOTE | 2021-01-30 11:01 | PT.INTREAT ---
Date of service: 01/30/21 Time of Service: 10:45 PT Notes Visit Reasons: Fractured Humerous Date: 01/30/2021 PRECAUTIONS:Activities as tolerated SUBJECTIVE: Patient reluctantly agrees to PT, however once again she is very hard to keep engaged. OBJECTIVE: PAIN: Controlled through shoulder on the right. Heating pad applied THEREX: Guidance into appropriate muscle facilitation Cued verbal and tactile cueing applied for appropriate movement strategies Encouraged active control of extremities Focus on left Upper extremity for strengthening due to fx of right See list of exercises performed in scanned in flow sheet Heel Raise Quad sets Hip flexion pumps SLR with assist Left UE flexion and extension of elbow Director Operations Broadcast squeeze bilaterally ASSESSMENT: Very somnolent and hard to arouse. A lot of active assistance applied, Not appropriate yet for out of bed activities. PLAN: Continue with current plan of care, as able to tolerate. Hope to get patient out of bed once her state of arousal improves TREATMENT CODE/TIME: [id number], 10 minutes, began session at 10:45
[2021-01-30] MEDS: Furosemide 40 MG/4 ML VIAL IVP (13:34)
[2021-01-30] MEDS: Normal Saline Flush 10 ML SYR IVP (13:35)
[2021-01-30 13:40] LABS: Creatine Kinase 96 U/L (26-192)
--- NOTE | 2021-01-30 14:08 | PGE_ITS ---
Date of Service Date of service: 01/30/21 Time of Service: 14:08 Assessment and Plan Assessment and plan (1) AMS (altered mental status): Status: Acute Assessment and plan: ? d/t hypercalcemia. ? psychiatric disorder she is arousable and oriented when queried. treating hypercalcemia with fluids, supplements discontinued. head CT was negative 01/28, consider repeat if doesn't improve with treatment of hypercalcemia (2) Hypercalcemia: Status: Acute Assessment and plan: improved with aggressive fluids contributing: supplements, bone fracture, kidney failure. will follow closely (3) Kidney failure: Status: Chronic Assessment and plan: acute on chronic, no obstructing process seen on CT scan on 01/27. ? ATN secondary to hypotension while in the ED. received bolus with 2 liters of NS and now on 200 cc/hr. quan placed and will monitor urine output closely avoid nephrotoxic drugs and renal dose as needed. quan catheter placed 01/29/21 nephrology consult spoke with Dr Gordon who is in agreement with current management. (4) Closed fracture of proximal end of right humerus: Status: Acute Assessment and plan: continue sling PT/OT referral pain management orthopedic f/u (5) Diabetes mellitus: Status: Chronic Assessment and plan: diabetic diet sliding scale ac/hs hold metformin in setting of increased creatinine Qualifiers: Diabetes mellitus complication status: without complication Diabetes mellitus termite control representative insulin use: without termite control representative use Diabetes mellitus type: type 2 Qualified Code(s): E11.9 - Type 2 diabetes mellitus without comp lications (6) Paranoid schizophrenia: Status: Acute Assessment and plan: continue home medication cloziril level sent (7) Discharge planning issues: Status: Acute Assessment and plan: care management following will need swing level care once medically stable. discussed with DR Hill Subjective Subjective Patient reports: afebrile; denies shortness of breath Interval history since last seen: decreasing urine output. Exam Const General: no acute distress and ill appearing chronically Nutritional Appearance: overweight Orientation: awake (arousable), oriented to person and oriented to place [facility] Head: normal to inspection, normocephalic and atraumatic Face and sinus: normal facial exam Mouth: moist mucous membranes abnormal (Slightly dry) Eyes General: appearance normal, both eyes and all related structures Neck Neck: normal visual inspection, full ROM, trachea midline, supple and nontender Resp Effort & Inspection: normal respiratory effort Auscultation: diminished lung sounds bilaterally in the lower lung [place] Cardio Rate: regular rate Rhythm: regular rhythm GI Palpation: soft Auscultation: normal bowel sounds General: bimanual renal exam normal bilaterally (quan placed, draining medium yellow urine) Back/Spine/Pelvis Back: no CVA tenderness and No back tenderness Skin General skin exam: no rashes or lesions noted Neuro General: patient awake and oriented Patient Orientation: Person and Place Cognition: abnormal cognition (sedate/) Speech: speech normal Motor: muscle tone normal throughout Sensory Exam: no sensory deficits noted Extrem Right upper extremity: shoulder/upper arm (in a sling, good hand dot net architect, 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); ROM limited and no edema Psych Appearance: grossly normal Mental Status: mental status grossly normal Objective Last Vital Signs Temp 36.3 C L 01/30/21 07:20 Pulse 88 01/30/21 07:20 Resp 15 01/30/21 07:20 BP 146/76 H 01/30/21 07:20 Pulse Ox 92 01/30/21 07:20 Laboratory Results - last 24 hr 01/29/21 01/30/21 01/30/21 15:27 06:30 06:35 WBC RBC Hgb Hct MCV MCH MCHC RDW Plt Count MPV Immature Gran % Neutrophils % Lymphocytes % Monocytes % Eosinophils % Basophils % Nucleated RBC % Absolute Neutrophils Absolute Lymphocytes Absolute Monocytes Absolute Eosinophils Absolute Basophils RBC Morphology Hypochromasia Sodium 140 143 Potassium 5.7 H 5.7 H Chloride 106 110 H Carbon Dioxide 28.7 23.2 Anion Gap 5.3 9.8 BUN 34 H 34 H Creatinine 3.9 H* 4.1 H* Estimated GFR/1.73 m2 11.50 10.85 Glucose 142 H 134 H Uric Acid 6.4 H Calcium 11.7 H* 10.3 H Total Bilirubin 0.2 AST 14 L ALT 8 L Alkaline Phosphatase 81 Creatine Kinase 96 Total Protein 5.5 L Albumin 2.5 L Urine Color Urine Clarity Urine pH Ur Specific [place] Urine Protein Urine Ketones Urine Blood Urine Nitrite Urine Bilirubin Urine Urobilinogen Ur Leukocyte Esterase Urine RBC Urine WBC Ur Epithelial Cells Urine Crystals Urine Bacteria Urine Casts Urine Mucus Ur Culture Indicated? Ur Random Albumin U Random Total Protein Urine Glucose Urine Globulin Urine Random PEP Note Urine Immunofixation 01/30/21 01/30/21 01/30/21 06:35 09:10 09:10 WBC 10.14 RBC 2.75 L Hgb 8.1 L Hct 25.9 L MCV 94.2 MCH 29.5 MCHC 31.3 L RDW 13.2 Plt Count 214 MPV 9.8 Immature Gran % 0.4 Neutrophils % 76.9 Lymphocytes % 12.5 Monocytes % 6.8 Eosinophils % 2.7 Basophils % 0.7 Nucleated RBC % 0 Absolute Neutrophils 7.80 H Absolute Lymphocytes 1.27 Absolute Monocytes 0.69 Absolute Eosinophils 0.27 Absolute Basophils 0.07 RBC Morphology See Below Hypochromasia 2+ Sodium Potassium Chloride Carbon Dioxide Anion Gap BUN Creatinine Estimated GFR/1.73 m2 Glucose Uric Acid Calcium Total Bilirubin AST ALT Alkaline Phosphatase Creatine Kinase Total Protein Albumin Urine Color Yellow Urine Clarity Sl Cloudy Urine pH 5.5 Ur Specific [place] 1.015 Urine Protein 30 H Urine Ketones Trace H Urine Blood Moderate H Urine Nitrite Negative Urine Bilirubin Negative Urine Urobilinogen 0.2 Ur Leukocyte Esterase Large H Urine RBC 10-20 H Urine WBC 20-50 H Ur Epithelial Cells Many Urine Crystals Rare Amorphous Urine Bacteria Moderate Urine Casts Negative Urine Mucus Trace Ur Culture Indicated? No/Sq. Contamination Ur Random Albumin Cancelled U Random Total Protein Cancelled Urine Glucose Negative Urine Globulin Cancelled Urine Random PEP Note Cancelled Urine Immunofixation Cancelled
[2021-01-30 14:30] LABS: Anion Gap 9.2 mmol/L (3-11); BUN 35 mg/dL (7-18); CO2 22.8 mmol/L (21.0-32.0); Calcium 10.1 mg/dL (8.5-10.1); Chloride 110 mmol/L (98-107); Estimated GFR 10.56 (mL/min/1.73m2); Glucose 147 mg/dL (74-106); Potassium 5.4 mmol/L (3.5-5.1); Sodium 142 mmol/L (136-145)
[2021-01-30 14:31] LABS: CREATININE 4.2 mg/dL (0.55-1.02)
[2021-01-30 15:53] VITALS: BP 152/85; PULSE 76; RESP 20; TEMP 36; O2SAT 95
[2021-01-30] MEDS: Gabapentin 100 MG CAP PO (19:43)
[2021-01-30] MEDS: Docusate Sodium 100 MG CAP PO (19:43)
[2021-01-30] MEDS: Melatonin 3 MG TAB PO (22:08)
[2021-01-30] MEDS: Simvastatin 20 MG TAB PO (22:08)
[2021-01-30] MEDS: Gabapentin 100 MG CAP 200 MG PO (22:08)
[2021-01-30] MEDS: Citalopram 10 MG TAB PO (22:08)
--- NOTE | 2021-01-31 | DI.CT_ITS ---
Exam(s) CT HEAD WO EXAM: CT HEAD WO CLINICAL HISTORY: altered mental status post fall. TECHNIQUE: Imaging Protocol: Axial computed tomography images with coronal and sagittal reformatted images were created and reviewed COMPARISON: CT CT HEAD WO from 01/28/2021 FINDINGS: There is again noted to be a large amount of artifact due to metallic coils related to prior aneurysm . No acute hemorrhage, mass or infarct is seen. Ventricles are unchanged in size. Atrophy is again noted. Opacification of ethmoid sinuses and mucosal thickening of the maxillary sinuses there is im provement in the aeration of the right maxillary sinus when compared with the previous exam. IMPRESSION: No acute intracranial process. RADIATION DOSE DELIVERED: 687.12mGy.cm Total DLP DATA REPOSITORY: All CT scans at this facility are submitted to the National Radiology Data Registry (NRDR) Dose Index Registry (DIR) with the [employer] (ACR). RADIATION OPTIMIZATION: All CT scans at this facility use at least one of these dose optimization te chniques: automated exposure control; mA and/or kV adjustment per patient size (includes targeted exa ms where dose is matched to clinical indication); or iterative reconstruction.
[2021-01-31 00:36] VITALS: BP 166/81; PULSE 82; RESP 17; TEMP 36.7; O2SAT 96
[2021-01-31] MEDS: Normal Saline 1,000 ML 200 ML IV ×3 (02:55→11:59)
[2021-01-31] MEDS: Alendronate 70 MG TAB PO (06:02)
[2021-01-31 07:33] LABS: Anion Gap 13.9 mmol/L (3-11); BUN 32 mg/dL (7-18); CO2 20.1 mmol/L (21.0-32.0); Chloride 111 mmol/L (98-107); Glucose 130 mg/dL (74-106); Potassium 4.6 mmol/L (3.5-5.1); Sodium 145 mmol/L (136-145)
[2021-01-31 07:40] LABS: CREATININE 3.9 mg/dL (0.55-1.02)
[2021-01-31] MEDS: Ferrous Sulfate 325 MG TAB PO ×3 (08:29→20:54)
[2021-01-31] MEDS: Aspirin 81 MG CHEW PO (08:29)
[2021-01-31] MEDS: Acetaminophen 325 MG TAB 650 MG PO ×3 (08:29→20:55)
[2021-01-31] MEDS: Polyethylene Glycol 3350 17 GM PACKET PO (08:29)
[2021-01-31] MEDS: Cyanocobalamin 500 MCG TAB 1000 MCG PO (08:29)
[2021-01-31] MEDS: Brimonidine 0.15% 5 ML BTL OP (08:35)
[2021-01-31] MEDS: Timolol 0.5% 5 ML BTL OP (08:35)
--- NOTE | 2021-01-31 08:59 | NT_ITS ---
Date of service: 01/31/21 Time of Service: 08:59 Occupational Therapy Notes 01/31/21 OT consult received and pts chart was reviewed. OT attempted consult where pt was able to verbalize her name but after OT introduced herself to pt, pt then stopped responding, shut her eyes and states that she is not interested today and wants to go home. OT will attempt to resume services tomorrow. Yuliya Parker, OTR/L [facility]
[2021-01-31 09:45] VITALS: BP 165/86; PULSE 91; RESP 18; TEMP 36.5; O2SAT 96
[2021-01-31 10:59] LABS: Bilirubin Negative (Negative); Blood Small (Negative); Clarity Clear (Clear); Glucose Negative (Negative); Ketones Trace mg/dL (Negative); Leukocyte Esterase Trace (Negative); Nitrite Negative (Negative); Specific Gravity 1.015 (1.005-1.025); Urobilinogen 0.2 EU/dL (Up TO 0.2); pH 6.5 (5-8)
[2021-01-31 11:06] LABS: Bacteria Rare HPF (Negative); C & S Indicated? Yes; Casts 0-2 Hyaline LPF (Negative); Crystals Negative HPF (Negative); Epithelial Cells Few HPF (Negative); Mucus Negative (Negative); RBC 0-2 HPF (0-2)
--- NOTE | 2021-01-31 11:19 | PDOC.CMIN ---
- If Service Date Differs Date of service: 01/31/21 Time of Service: 11:19 Care Management Initial Assess REASON FOR HOSPITALIZATION:: Closed fracture right humerus PAST MEDICAL HISTORY/PAST SURGICAL HISTORY:: Medical History . Ankle pain, left. Auditory hallucinations. Back pain. Calcium kidney stone. Chronic constipation. COPD (chronic obstructive pulmonary disease). Depressive disorder. Diabetes mellitus. DNI (do not intubate). DNR (do not resuscitate). Falls. Fatigue. Fracture of orbital floor, left side, sequela. GERD (gastroesophageal reflux disease). Glaucoma. Headache. Hip pain, bilateral. Hyperlipidemia. Hypertension. Insomnia. Intracranial aneurysm. Knee pain, bilateral. Low back pain. Lumbar back pain. Migraine headache with aura. Migraine headache without aura. Osteoarthritis. Overweight. Paranoid schizophrenia. POLST (Physician Orders for Life-Sustaining Treatment). Polyarthralgia. Tobacco use disorder. Toe infection. Umbilical hernia without mention of obstruction or gangrene. Urinary frequency. Vitamin D deficiency. Surgical History . H/O: hysterectomy. History of bilateral tubal ligation. Status post coil embolization of cerebral aneurysm PREVIOUS FUNCTIONAL STATUS/SOCIAL/FAMILY SUPPORTS:: Janel Fay, lives at [facility], a skilled nursing in [place], [place]. Her brother, Jonnie, also lives at [facility]. She has a sister who lives in [facility]. 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 CURRENT FUNCTIONAL STATUS:: Janel was lying in bed when CM met with her. She has been sleeping most of the time but is arousable. CM asked how she was feeling and she denied having any pain. Janel did state that she wanted to go home She does not seem to have much of an appetite and refused lunch. CM updated mar from [facility]. ADVANCE DIRECTIVES:: none on file Has patient been provided with info about the portal/API?: Yes Did the patient sign up for the portal?: No CODE STATUS:: DNR/DNI INSURANCE COVERAGE / FINANCIAL ISSUES:: Medicare. Medicaid CURRENT HOME/COMMUNITY SERVICES/EQUIPMENT:: [facility] PRIMARY CARE PHYSICIAN:: Tosin Lundberg POTENTIAL DISCHARGE NEEDS:: Follow up [facility] PCP and plan of care PATIENT/FAMILY EDUCATION NEEDS:: Review of discharge instructions, medications, follow up plan, follow up plan, Ask Me Three TRANSPORTATION:: via facility staff or [facility] PLAN:: Janel will likely return to [facility] where she lives when she is medically cleared. She will follow up with her PCP and plan of care and transport via [facility] wheelchair van. CM will continue to support Janel and assess for discharge planning needs.
[2021-01-31 14:47] LABS: Albumin 48.7 % (55.8-66.1); Total Protein 5.1 g/dL (6.3-8.2)
--- NOTE | 2021-01-31 15:15 | PT.INTREAT ---
Date of service: 01/31/21 Time of Service: 09:35 PT Notes Visit Reasons: Fractured Humerous Inpatient Physical Therapy Treatment Note [facility] Date: 01/31/2021 PRECAUTIONS: Fall SUBJECTIVE: Nya states that she is very tired and does not feel like getting up out of bed. She is eventually agreeable to attempting to stand at EOB. Unable to understand ~50% of what patient says in a.m. OBJECTIVE: Hold afternoon PT session, per nursing. Patient just returning from testing and eating lunch. PAIN: Patient c/o R arm pain with movement BED MOBILITY/TRANSFERS Supine-sit: Mod A with HOB at 40 degrees Sit-supine: Min A with HOB flat Sit-stand: Min A x2 (performed x3) Stand-sit: CGA x2 (performed x3) Bed-Chair: Unable Chair-bed: Unable GAIT Assistive Device: Hemiwalker L Weight bearing: Full Assist: Min A Distance: 0' Deviation: Unable to take steps ASSESSMENT: Patient tolerated session with complaint of increased right arm pain with all movement. She was unable to take steps at this time, although was able to complete transfers and bed mobility today, requiring CGA-Mod A. PLAN: Continue with global strengthening and gait and transfer training, as tolerated. TREATMENT CODE/TIME: 20 minutes; [id number] (09:35)
[2021-01-31 15:30] VITALS: BP 171/85; PULSE 92; RESP 18; TEMP 36.5; O2SAT 97
--- NOTE | 2021-01-31 16:33 | PGE_ITS ---
Date of Service Date of service: 01/31/21 Time of Service: 16:34 Assessment and Plan Assessment and plan (1) HIPOLITO (acute kidney injury): Status: Acute Assessment and plan: Likely ATN due to an episode of hypotension on presentation, but we need to rule out sepsis. Obtain blood cultures. Obtain US renal. Contiue IVF - decrease rate. UOP did case picker. Continue to monitor I/O's and daily weights (2) Encephalopathy acute: Status: Acute Assessment and plan: CT head negative today. Uremic encephalopathy is possible, but will also check blood cultures. It is possible that this is also due to her schizophrenia. ?hypervitaminosis D - check Vitamin D level (3) Hypercalcemia: Status: Resolved Assessment and plan: Calcium supplements d/c'ed. Check vitamin D level. Etiology: supplements, bone fracture, kidney failure. (4) Closed fracture of proximal end of right humerus: Status: Acute Assessment and plan: continue sling, PT/OT, scheduled tylenol. (5) Diabetes mellitus: Status: Chronic Assessment and plan: Continue SSI hold metformin in setting of increased creatinine Qualifiers: Diabetes mellitus type: type 2 Diabetes mellitus [facility] insulin use: without intermediate project manager use Diabetes mellitus complication status: without complication Qualified Code(s): E11.9 - Type 2 diabetes mellitus without complications (6) Paranoid schizophrenia: Status: Acute Assessment and plan: continue home management clozaril level sent (7) Discharge planning issues: Status: Acute Assessment and plan: DNR/DNI COntinues to require hospitalization SNF on discharge (8) DVT prophylaxis: Status: Acute Assessment and plan: Sc heparin Subjective Subjective Interval history since last seen: Nurses report that the patient is minimally verbal today and continues to appear sleepy. Repeat CT negative. Nya does wake up when I come to see her but does not answer my questions and goes back to sleep during my exam. Exam Narrative Exam Narrative: General: obese Middle-aged female, lethargic, arousable, minimally verbal, falls asleep within seconds of waking up HEENT: EOMI, MMM Heart: RRR, tachycardic Lungs: CTAB Abdomen: soft, nontender, nondistended Extremities: no edema BLE's Objective Last Vital Signs Temp 36.5 C 01/31/21 09:45 Pulse 91 H 01/31/21 09:45 Resp 18 01/31/21 09:45 BP 165/86 H 01/31/21 09:45 Pulse Ox 96 01/31/21 09:45 Laboratory Results - last 24 hr 01/30/21 01/31/21 01/31/21 06:30 06:36 10:50 Sodium 145 Potassium 4.6 Chloride 111 H Carbon Dioxide 20.1 L Anion Gap 13.9 H BUN 32 H Creatinine 3.9 H* Estimated GFR/1.73 m2 11.50 Glucose 130 H Calcium 9.0 Total Protein (PEP) 5.1 L Albumin % (PEP) 48.7 L Lgqlc-7-Zebfpytch (%) 6.6 H Xhdzr-4-Bmapwuxie (%) 19.0 H Beta Globulins (%) 11.9 Gamma Globulins (%) 13.8 M-Scotty % Not Applicable PEP Comment SEE BELOW Urine Color Straw Urine Clarity Clear Urine pH 6.5 Ur Specific [place] 1.015 Urine Protein Trace H Urine Ketones Trace H Urine Blood Small H Urine Nitrite Negative Urine Bilirubin Negative Urine Urobilinogen 0.2 Ur Leukocyte Esterase Trace H Urine RBC 0-2 Urine WBC 10-20 H Ur Epithelial Cells Few Urine Crystals Negative Urine Bacteria Rare Urine Casts 0-2 Hyaline Urine Mucus Negative Ur Culture Indicated? Yes Urine Glucose Negative
[2021-01-31] MEDS: Heparin 5,000 UNITS/ML VIAL 5000 UNITS SC (17:40)
[2021-01-31] MEDS: Normal Saline Flush 10 ML SYR IVP (17:41)
[2021-01-31] MEDS: Normal Saline 1,000 ML 125 ML IV (18:59)
[2021-01-31] MEDS: Citalopram 10 MG TAB PO (20:54)
[2021-01-31] MEDS: Gabapentin 100 MG CAP 200 MG PO (20:55)
[2021-01-31] MEDS: Simvastatin 20 MG TAB PO (20:55)
[2021-01-31] MEDS: Melatonin 3 MG TAB PO (20:55)
--- NOTE | 2021-02-01 | DI.US_ITS ---
Exam(s) US RENAL EXAM: US RENAL CLINICAL HISTORY: HIPOLITO. TECHNIQUE: Adams scale, color and spectral Doppler were used. COMPARISON: CT CT THORACIC LUMBAR SPINE WO from 01/27/[address] CHEST/ABD/PEL W from 01/27/2021 FINDINGS: Renal size in cm: Right: 8.6 left: 8.9 Echogenicity: Normal Hydronephrosis: Mild right hydronephrosis resolved postvoid Cyst or mass: 12 millimeter cyst upper pole left kidney Nephrolithiasis: No Bladder:Rowland catheter. Normal wall thickness of 2 millimeters. Prevoid vol:104 cc Postvoid vol:0 cc Ureteral jets were not visualized. IMPRESSION: Mild right hydronephrosis which resolved postvoid. DATA REPOSITORY:
[2021-02-01 00:30] VITALS: BP 166/82; PULSE 90; RESP 18; TEMP 36.5; O2SAT 96
[2021-02-01] MEDS: Normal Saline 1,000 ML 125 ML IV (02:52)
[2021-02-01] MEDS: Heparin 5,000 UNITS/ML VIAL 5000 UNITS SC ×2 (06:29→18:09)
[2021-02-01 07:28] VITALS: BP 158/81; PULSE 97; RESP 19; TEMP 36.7; O2SAT 94
[2021-02-01] MEDS: Bisacodyl 5 MG TABEC 10 MG PO (07:43)
[2021-02-01] MEDS: Polyethylene Glycol 3350 17 GM PACKET PO (07:43)
[2021-02-01] MEDS: Cyanocobalamin 500 MCG TAB 1000 MCG PO (07:44)
[2021-02-01] MEDS: Ferrous Sulfate 325 MG TAB PO ×3 (07:44→19:33)
[2021-02-01] MEDS: Aspirin 81 MG CHEW PO (07:44)
[2021-02-01] MEDS: Acetaminophen 325 MG TAB 650 MG PO ×4 (07:44→19:34)
[2021-02-01 07:46] LABS: HCT 23.5 % (36.0-46.0); HGB 7.8 g/dL (11.2-15.7); MCHC 33.2 % (32.0-36.0); MCV 90.4 fL (80-95); MPV 9.2 fL (8.0-11.0); Platelet Count 223 10^3/uL (130-400); RDW 13.4 % (11.7-14.6); RDW-SD 43.8 fL; WBC 7.49 10^3/uL (4.4-10.8)
[2021-02-01 08:01] LABS: Clozapine 1270 ng/mL (350-600); Clozapine+Norclozapine Total 1673 ng/mL (>450); Norclozapine 403 ng/mL
--- NOTE | 2021-02-01 09:11 | OT.INNT ---
Date of service: 02/01/21 Time of Service: 07:55 Occupational Therapy Notes 02/01/21 OT attempted to see pt who refused skilled Occupational Therapy services at this time. Yuliya Parker OTR/[facility] [place]
[2021-02-01] MEDS: Brimonidine 0.15% 5 ML BTL OP ×2 (09:20→19:34)
[2021-02-01] MEDS: Timolol 0.5% 5 ML BTL OP ×2 (09:20→19:34)
[2021-02-01 09:31] LABS: Anion Gap 12.2 mmol/L (3-11); BUN 25 mg/dL (7-18); CO2 19.8 mmol/L (21.0-32.0); CREATININE 2.9 mg/dL (0.55-1.02); Calcium 7.5 mg/dL (8.5-10.1); Chloride 114 mmol/L (98-107); Estimated GFR 16.19 (mL/min/1.73m2); Glucose 85 mg/dL (74-106); Magnesium 1.5 mg/dL (1.8-2.4); Potassium 3.8 mmol/L (3.5-5.1); Sodium 146 mmol/L (136-145)
--- NOTE | 2021-02-01 11:12 | PDOC.CMPRO ---
- If Service Date Differs Date of service: 02/01/21 Time of Service: 11:12 Care Management Progress Note S/O:Rosalva was sitting up in bed when CM met with her. She had just finished dinner and informed CM that she ate well. She was able to explain to CM that she ate all 3 meals today and that she did well with lunch and dinner but only ate a little breakfast. This information was confirmed by documentation in her record. rosalva also stated that her arm is still sore. She was a little disoriented as to the date, thinking it was 01/28 instead of 02/01. then she stated that that someone told her that it was 02/02. CM attempted to reach Vanesa from [facility] to update her, but the call was not returned. A: Rosalva is a 65 year old woman admitted on 01/29/21 with a fractured humerus P:Rosalva will likely return to [place] where she lives when she is medically cleared. She will follow up with her PCP and plan of care and transport via [facility] wheelchair van. CM will continue to support Rosalva and assess for discharge planning needs. cc:
--- NOTE | 2021-02-01 11:14 | PT.INNT ---
Date of service: 02/01/21 Time of Service: 11:14 PT Notes Visit Reasons: Fractured Humerous 02/01/2021 Hold PT today per nursing due to changes in medication and as patient is too drowsy to participate in any out of bed activities, safely. Will attempt to resume PT services tomorrow morning, if appropriate.
[2021-02-01] MEDS: Normal Saline 1,000 ML 200 ML IV ×3 (11:16→21:29)
[2021-02-01] MEDS: MAGNESIUM SULFATE 2 GM/50 ML BAG IVPB (12:06)
[2021-02-01] MEDS: Potassium Chloride Liquid 20 MEQ PKT PO (12:07)
--- NOTE | 2021-02-01 12:17 | PHACLINREV_ITS ---
Pharmacy Admission Review - Admission Clinical Review (Last Reviewed 01/28/21 @ 15:20 by BERNADINE Monroe) DVT prophylaxis (Acute) Encephalopathy acute (Acute) HIPOLITO (acute kidney injury) (Acute) AMS (altered mental status) (Acute) Closed fracture of proximal end of right humerus (Acute) Paranoid schizophrenia (Acute) Discharge planning issues (Acute) fluphenazine enanthate [From Prolixin] Adverse Reaction (Severe, Verified 01/28/21 11:20) almost last time they gave it to me fluphenazine HCl [From Prolixin] Adverse Reaction (Severe, Verified 01/28/21 11:20) almost last time they gave it to me haloperidol [From Haldol] Adverse Reaction (Mild, Verified 01/28/21 11:20) doesn't agree with me haloperidol lactate [From Haldol] Adverse Reaction (Mild, Verified 01/28/21 11:20) doesn't agree with me chlorpromazine HCl [From Thorazine] Adverse Reaction (Unknown, Verified 01/28/21 11:20) per pt list from [facility] codeine Adverse Reaction (Unknown, Verified 01/28/21 11:20) pt list from [facility] ibuprofen Adverse Reaction (Unknown, Verified 01/28/21 11:20) per [place] [facility] nicotine Adverse Reaction (Unknown, Verified 01/28/21 11:20) per pt loist [place] [facility] paliperidone [From Invega] Adverse Reaction (Unknown, Verified 01/28/21 11:20) per pt list from [facility] Penicillins Adverse Reaction (Unknown, Verified 01/28/21 11:20) per pt list from [facility] Sulfa (Sulfonamide Antibiotics) Adverse Reaction (Unknown, Verified 01/28/21 11:20) per pt list from [facility] Resuscitation Status DNR/DNI Height 5 ft 4 in Weight 73.936 kg - Renal Dosing Renal Dosing: BUN 25 mg/dL (7-18) H 02/01/21 07:12 Creatinine 2.9 mg/dL (0.55-1.02) H D 02/01/21 07:12 Medications needing adjustments: Reviewed (Crcl ~16.25 mL/min, alendronate not recommended w/pt's current renal function and gabapentin recommended as a single daily dose. Will mention to provider.) - Anticoagulation Anticoagulation: Hgb 7.8 g/dL (11.2-15.7) L 02/01/21 07:12 Hct 23.5 % (36.0-46.0) L 02/01/21 07:12 Plt Count 223 10^3/uL (130-400) 02/01/21 07:12 INR 1.0 (0.9-1.1) 01/28/21 12:17 Creatinine 2.9 mg/dL (0.55-1.02) H D 02/01/21 07:12 DVT Prophylaxis: Reviewed (H/H has been slowly decreasing, will mention to provider.) Medications: Heparin Therapeutic Anticoagulation: N/A - Opiate Usage Evaluate Pain Scale/Pains Meds: N/A - Relevant Labs Sodium 146 mmol/L (136-145) H 02/01/21 07:12 Potassium 3.8 mmol/L (3.5-5.1) 02/01/21 07:12 Chloride 114 mmol/L (98-107) H 02/01/21 07:12 Magnesium 1.5 mg/dL (1.8-2.4) L 02/01/21 07:12 C-Reactive Protein Cancelled 01/31/21 16:33 Electrolytes, C-Reactive P, ESR: Reviewed (IV Magnesium ordered for low magnesium levels) - DM Control DM Control: Glucose 85 mg/dL (74-106) 02/01/21 07:12 Finger Stick Blood Glucose 121 Finger Stick Blood Glucose 121 Insulin Dosing: Intervened (Per H&P metformin held due to creatinine level. Pr ogress note mentions sliding scale aspart but no order. Will mention to provider) - Heart Failure/AZ Heart Failure/AZ: Troponin I < 0.05 ng/mL (<0.06) 01/28/21 15:52 EF%, JIM's, B-Blockers, Diuretics: Reviewed - BP Control BP Control: Blood Pressure 158/81 Blood Pressure 166/82 If elevated: Intervened (BP has been elevated, no current orders for HTN. Provider aware) - Qtc Review If Elevated: N/A (No EKG done so far this admission.) - IV to PO Switch IV Medications: Reviewed - Home Meds Home Med List reviewed: Reviewed (Olanzapine, clozapine, and clonazepam may enhance the adverse effects of each other; it's recommended to avoid concomitant use or use lower dosages and monitor for adverse effects. Multiple anticholinergic meds.) Relevent Home Meds Not ordered & why?: calcium/vit D, Vit D, clonazepam, metformin - Current meds Current Medication Order Review: Reviewed - Comments Comments/Follow Ups: Monitor BP, BG, SCr, and H/H. Watch labs and changes in current medication orders.
--- NOTE | 2021-02-01 12:50 | W.PM.PROGNOT ---
Date of Service Date of service: 02/01/21 Time of Service: 12:50 Assessment and Plan Assessment and plan (1) AMS (altered mental status): Status: Acute Assessment and plan: she remains arousable and oriented when queried. treated hypercalcemia with no improvement head CT was negative after fall injury. will reduce dose of clozaril and continue to monitor closely (2) Hypercalcemia: Status: Resolved Assessment and plan: resolved with fluids contributing factors: oral supplements, bone fracture, kidney failure. (3) Kidney failure: Status: Chronic Assessment and plan: improving with current treatment acute on chronic, no obstructing process seen on CT scan on 01/27. ? ATN secondary to hypotension while in the ED. received bolus with 2 liters of NS and now on 200 cc/hr. quan placed and will monitor urine output closely avoid nephrotoxic drugs and renal dose as needed. quan catheter placed 01/29/21 nephrology consult spoke with Dr Gordon who is in agreement with current management. 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 will drop HS dose to 100 mg while hospitalized. (7) Hypomagnesemia: Status: Acute Assessment and plan: will replete and follow. her potassium was elevated d/t renal failure and has normalized with lokelma and now resolving kidney function. will give one PO dose of 20 meq and follow (8) Discharge planning issues: Status: Acute Assessment and plan: care management following will need swing level care once medically stable. discussed with DR Hill Subjective Subjective Patient reports: still having pain, tolerating liquids well, no bowel movement and afebrile; denies shortness of breath Interval history since last seen: still remains with eyes closed most of the time, but does respond appropriately to questions and follows commands. taking some po fluids but poor solid intake. Exam Const General: no acute distress and ill appearing chronically Nutritional Appearance: overweight Orientation: awake (arousable), oriented to person and oriented to place [facility] Head: normal to inspection, normocephalic and atraumatic Face and sinus: normal facial exam Mouth: moist mucous membranes abnormal (Slightly dry) Eyes General: appearance normal, both eyes and all related structures Alignment and Position: alignment normal Periorbital: periorbital findings normal Eyelids: eyelids normal Conjunctivae: conjunctivae normal Sclera: sclerae normal Cornea: corneas normal Pupils: PERRL EOM: EOM intact bilaterally Direct ophthalmoscopy: normal light reflex Neck Neck: normal visual inspection, full ROM, trachea midline, supple and nontender Resp Effort & Inspection: normal respiratory effort Auscultation: diminished lung sounds bilaterally in the lower lung [place] Cardio Rate: regular rate Rhythm: regular rhythm GI Palpation: soft Auscultation: normal bowel sounds General: bimanual renal exam normal bilaterally (quan placed, draining medium yellow urine) Back/Spine/Pelvis Back: no CVA tenderness and No back tenderness Skin General skin exam: no rashes or lesions noted Neuro General: patient awake and oriented Patient Orientation: Person and Place Cognition: abnormal cognition (sedate/) Speech: speech normal Motor: muscle tone normal throughout Sensory Exam: no sensory deficits noted Extrem Right upper extremity: shoulder/upper arm (in a sling, good hand legal officer, 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); ROM limited and no edema Psych Appearance: grossly normal Mental Status: mental status grossly normal Objective Last Vital Signs Temp 36.7 C 02/01/21 07:28 Pulse 97 H 02/01/21 07:28 Resp 19 02/01/21 07:28 BP 158/81 H 02/01/21 07:28 Pulse Ox 94 02/01/21 07:28 Laboratory Results - last 24 hr 01/30/21 01/30/21 01/31/21 06:30 06:35 16:33 WBC RBC Hgb Hct MCV MCH MCHC RDW Plt Count MPV VBG Lactate Sodium Cancelled Potassium Cancelled Chloride Cancelled Carbon Dioxide Cancelled Anion Gap Cancelled BUN Cancelled Creatinine Cancelled Estimated GFR/1.73 m2 Cancelled Glucose Cancelled Calcium Cancelled Magnesium C-Reactive Protein Cancelled Total Protein (PEP) 5.1 L Albumin % (PEP) 48.7 L Ipnhs-3-Ycyyzgicf (%) 6.6 H Xvrwk-6-Sacfvglwy (%) 19.0 H Beta Globulins (%) 11.9 Gamma Globulins (%) 13.8 M-Scotty % Not Applicable PEP Comment SEE BELOW Procalcitonin Clozapine 1270 H Clozapine &Norclozapine 1673 Norclozapine 403 01/31/21 02/01/21 02/01/21 16:33 07:12 07:12 WBC 7.49 RBC 2.60 L Hgb 7.8 L Hct 23.5 L MCV 90.4 MCH 30.0 MCHC 33.2 RDW 13.4 Plt Count 223 MPV 9.2 VBG Lactate Cancelled Sodium 146 H Potassium 3.8 Chloride 114 H Carbon Dioxide 19.8 L Anion Gap 12.2 H BUN 25 H Creatinine 2.9 H D Estimated GFR/1.73 m2 16.19 Glucose 85 Calcium 7.5 L Magnesium 1.5 L C-Reactive Protein Total Protein (PEP) Albumin % (PEP) Dvbel-1-Ijqpodevr (%) Iudxk-2-Kxbvvsqdp (%) Beta Globulins (%) Gamma Globulins (%) M-Scotty % PEP Comment Procalcitonin Cancelled Clozapine Clozapine &Norclozapine Norclozapine
[2021-02-01 15:54] LABS: Albumin, Urine % 27.5 %; Globulins, Urine % 72.5 %; Immunotyping, Urine (See Note); Total Protein Urine 53 mg/dL (See Note)
[2021-02-01 15:58] VITALS: BP 170/92; PULSE 89; RESP 19; TEMP 37.3; O2SAT 96
[2021-02-01] MEDS: Docusate Sodium 100 MG CAP PO (21:30)
[2021-02-01] MEDS: Citalopram 10 MG TAB PO (21:30)
[2021-02-01] MEDS: Simvastatin 20 MG TAB PO (21:30)
[2021-02-01] MEDS: Latanoprost 0.005% 2.5 ML BTL OP (21:30)
[2021-02-01] MEDS: Melatonin 3 MG TAB PO (21:30)
[2021-02-01] MEDS: Gabapentin 100 MG CAP 200 MG PO (21:30)
[2021-02-02] MEDS: Normal Saline Flush 10 ML SYR IVP (00:39)
[2021-02-02 00:41] VITALS: BP 160/81; PULSE 86; RESP 18; TEMP 36.7; O2SAT 96
[2021-02-02] MEDS: Normal Saline 1,000 ML 200 ML IV (04:37)
[2021-02-02] MEDS: Heparin 5,000 UNITS/ML VIAL 5000 UNITS SC ×2 (05:34→18:35)
[2021-02-02 07:06] LABS: Abs Immature Grans 0.02 10^3/uL (0.0-0.06); Absolute Basophil Count 0.05 10^3/uL (0.0-0.2); Absolute Eosinophil Count 0.21 10^3/uL (0.0-0.7); Absolute Lymphocyte Count 0.97 10^3/uL (1.2-3.4); Absolute Monocyte Count 0.44 10^3/uL (0.1-0.8); Basophils % 0.7; Eosinophils % 2.8; HCT 22.5 % (36.0-46.0); HGB 7.4 g/dL (11.2-15.7); Immature Grans % 0.3; Lymphocytes % 12.8; MCH 29.8 pg (27.0-33.0); MCHC 32.9 % (32.0-36.0); MCV 90.7 fL (80-95); Monocytes % 5.8; Neutrophils % 77.6; Nucleated RBC 0 %; Platelet Count 207 10^3/uL (130-400); RBC 2.48 10^6/uL (3.93-5.22); RDW 13.3 % (11.7-14.6); WBC 7.59 10^3/uL (4.4-10.8)
[2021-02-02 07:26] VITALS: BP 183/84; PULSE 93; RESP 19; TEMP 36.8; O2SAT 95
[2021-02-02 07:27] LABS: Magnesium 1.9 mg/dL (1.8-2.4)
[2021-02-02 07:34] LABS: ALT 9 U/L (14-59); AST 15 U/L (15-37); Albumin 2.4 g/dL (3.4-5.0); Alkaline Phosphatase 91 U/L (46-116); Anion Gap 14.2 mmol/L (3-11); BUN 21 mg/dL (7-18); Bilirubin, Total 0.3 mg/dL (0.2-1.0); CO2 19.8 mmol/L (21.0-32.0); CREATININE 2.2 mg/dL (0.55-1.02); Calcium 7.3 mg/dL (8.5-10.1); Chloride 114 mmol/L (98-107); Estimated GFR 22.26 (mL/min/1.73m2); Glucose 107 mg/dL (74-106); Potassium 3.7 mmol/L (3.5-5.1); Sodium 148 mmol/L (136-145); Total Protein 5.4 g/dL (6.4-8.2)
[2021-02-02] MEDS: Acetaminophen 325 MG TAB 650 MG PO ×4 (08:54→20:27)
[2021-02-02] MEDS: Ferrous Sulfate 325 MG TAB PO ×3 (08:54→20:26)
[2021-02-02] MEDS: Aspirin 81 MG CHEW PO (08:54)
[2021-02-02] MEDS: Cyanocobalamin 500 MCG TAB 1000 MCG PO (08:54)
[2021-02-02] MEDS: Brimonidine 0.15% 5 ML BTL OP ×2 (08:55→20:27)
[2021-02-02] MEDS: Polyethylene Glycol 3350 17 GM PACKET PO (08:55)
[2021-02-02] MEDS: Timolol 0.5% 5 ML BTL OP ×2 (08:56→20:27)
[2021-02-02] MEDS: amLODIPine 2.5 MG TAB PO (09:34)
--- NOTE | 2021-02-02 10:08 | OTIE_ITS ---
Occupational Therapy Notes Inpatient Occupational Therapy Evaluation Date: 02/02/21 Referring Doctor:Brinda Hill MD OT Orders: Non Urgent Precautions: Fall, standard, Broken (R) UE, DNR/DNI PATIENT PROFILE/ADMITTING DIAGNOSIS: Pt is a 65 year old female who was admitted through the ED for the following dx, Hypomagnesemia, encephalopathy, HIPOLITO, hypercalcemia, AMS, closed fx of (R) humerus, contusion (R) hip, Fall. Past Medical History: Medical History Ankle pain, left Auditory hallucinations Back pain Calcium kidney stone Chronic constipation COPD (chronic obstructive pulmonary disease) Depressive disorder Diabetes mellitus DNI (do not intubate) DNR (do not resuscitate) Falls Fatigue Fracture of orbital floor, left side, sequela GERD (gastroesophageal reflux disease) Glaucoma Headache Hip pain, bilateral Hyperlipidemia Hypertension Insomnia Intracranial aneurysm Knee pain, bilateral Low back pain Lumbar back pain Migraine headache with aura Migraine headache without aura Osteoarthritis Overweight Paranoid schizophrenia POLST (Physician Orders for Life-Sustaining Treatment) Polyarthralgia Tobacco use disorder Toe infection Umbilical hernia without mention of obstruction or gangrene Urinary frequency Vitamin D deficiency Surgical History H/O: hysterectomy History of bilateral tubal ligation Status post coil embolization of cerebral aneurysm Social History/Home Situation: [] Equipment owned/DME: Unable to assess SUBJECTIVE: Pt was sitting in bed when OT arrived, she was agreeable to transfer to chair. OBJECTIVE: General Observation: Alert to name, pt is verbally communicating, IV and quan in place Mental Status: Alert to name, pts cognitive status is off based on medication per [employer] Pain: (R) UE 7-8/10 ROM: RUE NT L UE AROM WFL STRENGTH: RUE NT LUE 2+/5 throughout FUNCTIONAL MOBILITY/ADLS: Transfers Sit-Stand CGAx2 Stand-sit CGAx2 Bed-Chair CGAx2 Pt requires max (A) for donning sling today. BALANCE: Static sitting Good Dynamic Sitting Fair Static Standing Fair Dynamic Standing Fair SPECIAL TESTS: Daily Activity Limitations Standardized Measure [facility] AM -PAC ?6 clicks? Daily Activity Inpatient Short Form: Raw score: 18 INFORMED CONSENT/EDUCATION: Pt instructed in purpose of OT Consult and plan of care. ASSESSMENT: Patient is a 65-year-old female referred to occupational therapy services with diagnosis of Hypomagnesemia, encephalopathy, HIPOLITO, hypercalcemia, AMS, closed fx of (R) humerus, contusion (R) hip, Fall. Patient presents with clinical signs and symptoms consistent with dx, as demonstrated by the following impairment level findings/functional limitations: Pain in arm from fx limiting her dressing and bathing routines, impairments in ADL/IADL and leisure activities, decreased gross and fine motor control, Pain in hip, decreased cognitive awareness, decreased ability to perform her ADLs at her baseline level of function. AMPAC score 18 Patient is assessed as a Moderate 56825 complexity based on the following: History: see above Examination: see functional limitations as noted above Presentation: evolving Decision Making: AMPAC score 18 GOALS Goals x1 week 1. Grooming- sitting in chair (I) brushing her teeth 2. Dressing- sitting in chair (I) UE and mod (I) LE 3. Bathing- sitting in chair min (A) UE and (I) LE 4. Toileting on toilet (I) 5. Eating (I) PLAN OF CARE/TREATMENT PLAN: 1x/day, 5 days/ week x 1week Initiate Occupational Therapy Services for bathing, dressing, grooming, toileting, eating, transfer training. DISCHARGE RECOMMENDATIONS Based on pts current level of function OT recommends that pt would benefit from returning home with OT [facility] SN[facility] if pain persists and limits her functional (I). TREATMENT TIME/MINUTES/CODES 20860 Yuliya Parker OTR/[facility]
[2021-02-02] MEDS: SODIUM CHLORIDE 0.45% 1,000 ML 200 ML IV ×3 (10:12→20:25)
--- NOTE | 2021-02-02 11:39 | W.PM.PROGNOT ---
Date of Service Date of service: 02/02/21 Time of Service: 11:39 Assessment and Plan Assessment and plan (1) AMS (altered mental status): Status: Acute Assessment and plan: she remains arousable and oriented when queried. treated hypercalcemia with no improvement head CT was negative after fall injury. will reduce dose of clozaril and continue to monitor closely (2) Hypercalcemia: Status: Resolved Assessment and plan: resolved with fluids contributing factors: oral supplements, bone fracture, kidney failure. (3) Kidney failure: Status: Chronic Assessment and plan: improving with current treatment acute on chronic, no obstructing process seen on CT scan on 01/27. ? ATN secondary to hypotension while in the ED. received bolus with 2 liters of NS and now on 200 cc/hr. quan placed and will monitor urine output closely avoid nephrotoxic drugs and renal dose as needed. quan catheter placed 01/29/21 nephrology consult spoke with Dr Gordon who is in agreement with current management. 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 will drop HS dose to 100 mg while hospitalized. (7) Hypomagnesemia: Status: Acute Assessment and plan: will replete and follow. her potassium was elevated d/t renal failure and has normalized with lokelma and now resolving kidney function. will give one PO dose of 20 meq and follow (8) Discharge planning issues: Status: Acute Assessment and plan: care management following will need swing level care once medically stable. discussed with DR Hill Subjective Subjective Patient reports: still having pain, tolerating liquids well, no bowel movement and afebrile; denies shortness of breath Interval history since last seen: still remains with eyes closed most of the time, but does respond appropriately to questions and follows commands. taking some po fluids but poor solid intake. Exam Const General: no acute distress and ill appearing chronically Nutritional Appearance: overweight Orientation: awake (arousable), oriented to person and oriented to place [facility] Head: normal to inspection, normocephalic and atraumatic Face and sinus: normal facial exam Mouth: moist mucous membranes abnormal (Slightly dry) Eyes General: appearance normal, both eyes and all related structures Alignment and Position: alignment normal Periorbital: periorbital findings normal Eyelids: eyelids normal Conjunctivae: conjunctivae normal Sclera: sclerae normal Cornea: corneas normal Pupils: PERRL EOM: EOM intact bilaterally Direct ophthalmoscopy: normal light reflex Neck Neck: normal visual inspection, full ROM, trachea midline, supple and nontender Resp Effort & Inspection: normal respiratory effort Auscultation: diminished lung sounds bilaterally in the lower lung moctezuma Cardio Rate: regular rate Rhythm: regular rhythm GI Palpation: soft Auscultation: normal bowel sounds General: bimanual renal exam normal bilaterally (quan placed, draining medium yellow urine) Back/Spine/Pelvis Back: no CVA tenderness and No back tenderness Skin General skin exam: no rashes or lesions noted Neuro General: patient awake and oriented Patient Orientation: Person and Place Cognition: abnormal cognition (sedate/) Speech: speech normal Motor: muscle tone normal throughout Sensory Exam: no sensory deficits noted Extrem Right upper extremity: shoulder/upper arm (in a sling, 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, 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); ROM limited and no edema Psych Appearance: grossly normal Mental Status: mental status grossly normal Objective Last Vital Signs Temp 36.8 C 02/02/21 07:26 Pulse 93 H 02/02/21 07:26 Resp 19 02/02/21 07:26 BP 183/84 H 02/02/21 07:26 Pulse Ox 95 02/02/21 07:26 Laboratory Results - last 24 hr 01/30/21 02/02/21 02/02/21 13:00 06:52 06:52 WBC RBC Hgb Hct MCV MCH MCHC RDW Plt Count MPV Immature Gran % Neutrophils % Lymphocytes % Monocytes % Eosinophils % Basophils % Nucleated RBC % Absolute Neutrophils Absolute Lymphocytes Absolute Monocytes Absolute Eosinophils Absolute Basophils Sodium Cancelled 148 H Potassium Cancelled 3.7 Chloride Cancelled 114 H Carbon Dioxide Cancelled 19.8 L Anion Gap Cancelled 14.2 H BUN Cancelled 21 H Creatinine Cancelled 2.2 H D Estimated GFR/1.73 m2 Cancelled 22.26 Glucose Cancelled 107 H Calcium Cancelled 7.3 L Magnesium 1.9 Total Bilirubin 0.3 AST 15 ALT 9 L Alkaline Phosphatase 91 Total Protein 5.4 L Albumin 2.4 L Ur Random Albumin 27.5 U Random Total Protein 53 Urine Globulin 72.5 Urine Random PEP Note See Comment Urine Immunofixation (See Note) 02/02/21 06:52 WBC 7.59 RBC 2.48 L Hgb 7.4 L Hct 22.5 L MCV 90.7 MCH 29.8 MCHC 32.9 RDW 13.3 Plt Count 207 MPV 9.0 Immature Gran % 0.3 Neutrophils % 77.6 Lymphocytes % 12.8 Monocytes % 5.8 Eosinophils % 2.8 Basophils % 0.7 Nucleated RBC % 0 Absolute Neutrophils 5.90 Absolute Lymphocytes 0.97 L Absolute Monocytes 0.44 Absolute Eosinophils 0.21 Absolute Basophils 0.05 Sodium Potassium Chloride Carbon Dioxide Anion Gap BUN Creatinine Estimated GFR/1.73 m2 Glucose Calcium Magnesium Total Bilirubin AST ALT Alkaline Phosphatase Total Protein Albumin Ur Random Albumin U Random Total Protein Urine Globulin Urine Random PEP Note Urine Immunofixation
--- NOTE | 2021-02-02 11:58 | PT.INTREAT ---
Date of service: 02/02/21 Time of Service: 10:30 PT Notes Visit Reasons: Fractured Humerous Inpatient Physical Therapy Treatment Note [facility] Date: 02/02/2021 PRECAUTIONS: Fall SUBJECTIVE: Nya states that she is feeling better today. She reports being cold, and asks if she can go home today. OBJECTIVE: PAIN: Patient reports significant pain in R UE with movement BED MOBILITY/TRANSFERS Sit-supine: I with HOB flat Sit-stand: Min A Stand-sit: CGA Bed-Chair: [facility] Chair-bed: [facility] GAIT Assistive Device: Hemiwalker L Weight bearing: NWB on R UE Assist: [facility] Distance: 10 steps in both a.m. and p.m. Deviation: Sling on R, refused further distance in p.m. ASSESSMENT: Patient tolerated session with c/o increased fatigue. Adjustments made to sling throughout session, due to ill-fit. Patient was able to tolerate gait training and transferring today, which is an improvement from yesterday. PLAN: Continue with global strengthening and gait and transfer training for improved mobility. TREATMENT CODE/TIME: Session 1: 15 minutes; 98843 (10:30) Session 2: 10 minutes; [id number] (11:55)
--- NOTE | 2021-02-02 13:54 | CMPROGNOTE_ITS ---
- If Service Date Differs Date of service: 02/02/21 Time of Service: 13:54 Care Management Progress Note S/O:Janel was sitting up in bed when CM met with her. She was much more awake and alert and interacted well with CM. Janel stated that she felt like she needed to pee but was told she had a tube. CM explained about her quan catheter and the fact that it often feels that way. Janel also stated that she was full of poop. She stated she had a small BM this morning but still felt like she needed to go. CM discussed this with her nurse who was working with the provider to increase her bowel medications. A: Janel is a 65 year old woman admitted on 01/29/21 with a fractured humerus P:Janel may not be able to return to [place] where she lives when she is medically cleared. Per Vanesa, the facility director, Janel's current healthcare needs exceed their abilities due to staffing. CM will send referrals to [facility] and to [facility] with Janel's permission. She will follow up with their PCP and plan of care. CM will continue to support Janel and assess for discharge planning needs.
[2021-02-02 15:45] VITALS: BP 158/80; PULSE 87; RESP 19; TEMP 36.7; O2SAT 98
[2021-02-02] MEDS: Nicotine 7 MG/24 HR PATCH TD (20:38)
[2021-02-02] MEDS: Docusate Sodium 100 MG CAP PO (20:38)
[2021-02-02] MEDS: Cyclobenzaprine 10 MG TAB 5 MG PO (20:40)
[2021-02-02] MEDS: Gabapentin 100 MG CAP 200 MG PO (21:16)
[2021-02-02] MEDS: Citalopram 10 MG TAB PO (21:16)
[2021-02-02] MEDS: Simvastatin 20 MG TAB PO (21:17)
[2021-02-02] MEDS: Melatonin 3 MG TAB PO (21:17)
[2021-02-02] MEDS: Latanoprost 0.005% 2.5 ML BTL OP (21:17)
[2021-02-02 23:27] VITALS: BP 149/84; PULSE 84; RESP 18; TEMP 36.9; O2SAT 97
[2021-02-03 01:21] LABS: Vitamin D 25 Total 43.4 ng/mL (30-100)
[2021-02-03] MEDS: SODIUM CHLORIDE 0.45% 1,000 ML 200 ML IV (01:24)
[2021-02-03] MEDS: Furosemide 40 MG/4 ML VIAL IVP (02:07)
[2021-02-03] MEDS: Heparin 5,000 UNITS/ML VIAL 5000 UNITS SC ×2 (05:48→18:21)
[2021-02-03] MEDS: Bisacodyl 5 MG TABEC 10 MG PO (07:11)
[2021-02-03 07:16] VITALS: BP 156/81; PULSE 106; RESP 18; TEMP 37.5; O2SAT 92
--- NOTE | 2021-02-03 07:49 | W.PM.PROGNOT ---
Date of Service Date of service: 02/03/21 Time of Service: 07:49 Assessment and Plan Assessment and plan (1) AMS (altered mental status): Status: Resolved Assessment and plan: improved since reducing clozapine dose lowered and now at her baseline continue to monitor (2) Hypercalcemia: Status: Resolved Assessment and plan: resolved with fluids contributing factors: oral supplements, bone fracture, kidney failure. (3) Kidney failure: Status: Chronic Assessment and plan: improving with current treatment IV fluid stopped overnight, will follow labs and if stable can d/c tomorrow. acute on chronic, no obstructing process seen on CT scan on 01/27. ATN secondary to hypotension while in the ED. received bolus with 2 liters of NS and now on 200 cc/hr. quan placed and will monitor urine output closely avoid nephrotoxic drugs and renal dose as needed. quan catheter placed 01/29/21 nephrology consult spoke with Dr Gordon who is in agreement with current management. 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 will drop HS dose to 100 mg while hospitalized. (7) Hypomagnesemia: Status: Acute Assessment and plan: will replete and follow. her potassium was elevated d/t renal failure and has normalized with lokelma and now resolving kidney function. will give one PO dose of 20 meq and follow (8) Discharge planning issues: Status: Acute Assessment and plan: care management following will need swing level care once medically stable. discussed with DR Hill Subjective Subjective Patient reports: feels better, tolerating liquids well, tolerating a regular diet and afebrile; denies nausea, vomiting and shortness of breath Interval history since last seen: overnight developed crackles concerning for fluid overload. IV fluid stopped and given lasix 40 mg IVP. no other c/o. patient more awake and moving closer to her baseline. some constipation Exam Const General: no acute distress and ill appearing chronically Nutritional Appearance: overweight Orientation: awake (arousable), oriented to person and oriented to place [facility] Head: normal to inspection, normocephalic and atraumatic Face and sinus: normal facial exam Mouth: moist mucous membranes abnormal (Slightly dry) Eyes General: appearance normal, both eyes and all related structures Alignment and Position: alignment normal Periorbital: periorbital findings normal Eyelids: eyelids normal Conjunctivae: conjunctivae normal Sclera: sclerae normal Cornea: corneas normal Pupils: PERRL EOM: EOM intact bilaterally Direct ophthalmoscopy: normal light reflex Neck Neck: normal visual inspection, full ROM, trachea midline, supple and nontender Resp Effort & Inspection: normal respiratory effort Auscultation: diminished lung sounds bilaterally in the lower lung moctezuma Cardio Rate: regular rate Rhythm: regular rhythm GI Palpation: soft Auscultation: normal bowel sounds General: bimanual renal exam normal bilaterally (quan placed, draining medium yellow urine) Back/Spine/Pelvis Back: no CVA tenderness and No back tenderness Skin General skin exam: no rashes or lesions noted Neuro General: patient awake and oriented Patient Orientation: Person and Place Cognition: abnormal cognition (sedate/) Speech: speech normal Motor: muscle tone normal throughout Sensory Exam: no sensory deficits noted Extrem Right upper extremity: shoulder/upper arm (in a sling, 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
[2021-02-03 08:58] LABS: Abs Immature Grans 0.04 10^3/uL (0.0-0.06); Absolute Basophil Count 0.04 10^3/uL (0.0-0.2); Absolute Eosinophil Count 0.19 10^3/uL (0.0-0.7); Absolute Lymphocyte Count 0.87 10^3/uL (1.2-3.4); Absolute Monocyte Count 0.47 10^3/uL (0.1-0.8); Absolute Neutrophil Count 7.86 10^3/uL (1.2-6.7); Basophils % 0.4; HCT 26.5 % (36.0-46.0); HGB 8.8 g/dL (11.2-15.7); Immature Grans % 0.4; Lymphocytes % 9.2; MCH 29.9 pg (27.0-33.0); MCHC 33.2 % (32.0-36.0); MCV 90.1 fL (80-95); MPV 9.1 fL (8.0-11.0); Nucleated RBC 0 %; Platelet Count 254 10^3/uL (130-400); RBC 2.94 10^6/uL (3.93-5.22); RDW 13.8 % (11.7-14.6); RDW-SD 44.4 fL; WBC 9.47 10^3/uL (4.4-10.8)
[2021-02-03 09:04] LABS: BUN 17 mg/dL (7-18); CREATININE 1.9 mg/dL (0.55-1.02); Chloride 109 mmol/L (98-107); Estimated GFR 26.37 (mL/min/1.73m2); Glucose 162 mg/dL (74-106); Potassium 3.5 mmol/L (3.5-5.1); Sodium 145 mmol/L (136-145)
[2021-02-03] MEDS: Aspirin 81 MG CHEW PO (09:06)
[2021-02-03] MEDS: Acetaminophen 325 MG TAB 650 MG PO ×4 (09:06→20:59)
[2021-02-03] MEDS: Cyanocobalamin 500 MCG TAB 1000 MCG PO (09:07)
[2021-02-03] MEDS: amLODIPine 2.5 MG TAB PO (09:07)
[2021-02-03] MEDS: Ferrous Sulfate 325 MG TAB PO ×3 (09:07→21:00)
[2021-02-03] MEDS: Polyethylene Glycol 3350 17 GM PACKET PO (09:07)
[2021-02-03 09:10] LABS: Calcium 7.6 mg/dL (8.5-10.1)
[2021-02-03] MEDS: Brimonidine 0.15% 5 ML BTL OP ×2 (09:15→21:01)
[2021-02-03] MEDS: Timolol 0.5% 5 ML BTL OP ×2 (09:15→21:01)
[2021-02-03 09:33] LABS: Source Nasal/Nares
--- NOTE | 2021-02-03 09:45 | OCONE_ITS ---
Date of service: 02/03/21 Time of Service: 09:46 Assessment and Plan Assessment and plan (1) Closed fracture of proximal end of right humerus: Status: Acute Assessment and plan: 65-year-old female 1 week status post right proximal humerus fracture Stable, minimally angulated and impacted impacted 2-part fracture pattern. Significant complicating psychiatric and medical conditions. Recommend regular sling for comfort about 4-6 weeks when ambulatory. Sling should be removed when resting in chair or bed. May elevate forearm on pillow. Light use right upper extremity for essential ADLs okay. Encourage daily gentle passive range of motion about the shoulder and active range of motion about hand and elbow to prevent stiffness. Follow-up at [facility] orthopedics as already arranged in 1-[address] Pérez or an orthopedic physician psychological assistant Interprofessional consult, 11-20 minutes, CPT #[id number] Qualifiers: Encounter type: initial encounter Fracture morphology: other fracture Fracture alignment: nondisplaced Qualified Code(s): S42.294A - Other nondisplaced fracture of upper end of right humerus, initial encounter for closed fracture [facility] Medical History Ankle pain, left Auditory hallucinations Back pain Calcium kidney stone Chronic constipation COPD (chronic obstructive pulmonary disease) Depressive disorder Diabetes mellitus DNI (do not intubate) DNR (do not resuscitate) Falls Fatigue Fracture of orbital floor, left side, sequela GERD (gastroesophageal reflux disease) Glaucoma Headache Hip pain, bilateral Hyperlipidemia Hypertension Insomnia Intracranial aneurysm Knee pain, bilateral Low back pain Lumbar back pain Migraine headache with aura Migraine headache without aura Osteoarthritis Overweight Paranoid schizophrenia POLST (Physician Orders for Life-Sustaining Treatment) Polyarthralgia Tobacco use disorder Toe infection Umbilical hernia without mention of obstruction or gangrene Urinary frequency Vitamin D deficiency Surgical History H/O: hysterectomy History of bilateral tubal ligation Status post coil embolization of cerebral aneurysm Family History Father Colon cancer Renal cancer Sister Breast cancer Mother Abdominal aortic aneurysm Brother Psychiatric illness Social History Smoking/Tobacco Use Status: Current every day Tobacco Type: cigarettes Smoking risk assessment performed?: Yes Alcohol Intake: former Drug use: Current Sobriety Substance use type: does not use Do you feel safe at home: Yes Do you feel safe in your relationship?: Yes Additional Social history: unable to assess [facility] Results Last Vital Signs Temp 99.5 F 02/03/21 07:16 Pulse 106 H 02/03/21 07:16 Resp 18 02/03/21 07:16 BP 156/81 H 02/03/21 07:16 Pulse Ox 92 02/03/21 07:16 Labs Result diagrams: 02/03/21 08:43 02/03/21 08:43 Labs: Laboratory Results - last 24 hr 02/01/21 02/03/21 02/03/21 07:12 08:43 08:43 WBC 9.47 RBC 2.94 L Hgb 8.8 L Hct 26.5 L MCV 90.1 MCH 29.9 MCHC 33.2 RDW 13.8 Plt Count 254 MPV 9.1 Immature Gran % 0.4 Neutrophils % 83.0 Lymphocytes % 9.2 Monocytes % 5.0 Eosinophils % 2.0 Basophils % 0.4 Nucleated RBC % 0 Absolute Neutrophils 7.86 H Absolute Lymphocytes 0.87 L Absolute Monocytes 0.47 Absolute Eosinophils 0.19 Absolute Basophils 0.04 Sodium 145 Potassium 3.5 Chloride 109 H Carbon Dioxide 21.0 Anion Gap 15.0 H BUN 17 Creatinine 1.9 H Estimated GFR/1.73 m2 26.37 Glucose 162 H Calcium 7.6 L 25-OH Vitamin D Total 43.4 COVID-19 Source 02/03/21 09:30 WBC RBC Hgb Hct MCV MCH MCHC RDW Plt Count MPV Immature Gran % Neutrophils % Lymphocytes % Monocytes % Eosinophils % Basophils % Nucleated RBC % Absolute Neutrophils Absolute Lymphocytes Absolute Monocytes Absolute Eosinophils Absolute Basophils Sodium Potassium Chloride Carbon Dioxide Anion Gap BUN Creatinine Estimated GFR/1.73 m2 Glucose Calcium 25-OH Vitamin D Total COVID-19 Source Nasal/Nares
--- NOTE | 2021-02-03 10:26 | PDOC.CMPRO ---
- If Service Date Differs Date of service: 02/03/21 Time of Service: 10:26 Care Management Progress Note S/O:Janel was sitting up in a chair when CM met with her. She was smiling and engaged readily with CM. Janel did state that her arm is really painful. She acknowledged that she received pain medicine but that it didn't help. She has only been receiving Tylenol because she was somnolent for the first few days of her stay and the provider did not want to add any sedation. The provider came to see Janel while CM was visiting and offered to add a stronger analgesic. [facility] on [facility]; [facility] has not responded.. A: Janel is a 65 year old woman admitted on 01/29/21 with a fractured humerus P:Janel will not be able to return to [place] where she lives at this time due to staffing issues. Referrals were sent to [facility] and to [facility] with Janel's permission. A bed offer was received for [facility]; no word from [facility]. will continue to support Janel and assess for discharge planning needs.
--- NOTE | 2021-02-03 10:32 | PTTR_ITS ---
Date of service: 02/03/21 Time of Service: 10:00 PT Notes Visit Reasons: Fractured Humerous Inpatient Physical Therapy Treatment Note [facility] Date: 02/03/2021 PRECAUTIONS: Fall SUBJECTIVE: Nya states that she is feeling better today and is agreeable to walking with PT. While ambulating patient states it feels good to walk. OBJECTIVE: PAIN: Patient reports pain in R UE with transfer and repositioning of UE in sling BED MOBILITY/TRANSFERS Sit-stand: CGA Stand-sit: CGA GAIT Assistive Device: SPC Weight bearing: NWB on R UE Assist: CGA x2 in a.m.; CGA in p.m. Distance: 100' in a.m.; 10' + 20' in p.m. Deviation: Sling on R, mild LOB x1, increased fatigue, fear of falling THEREX: Performed gentle PROM/AAROM to R into elbow flexion/extension, forearm supination/pronation, wrist flexion/extension, and clothes separator. TOILETING: Patient toileted with assist ASSESSMENT: Patient tolerated session with c/o R UE pain with adjustment of sling and with transfers. Adjustments made to sling prior to ambulating due to ill-fit. Patient was able to tolerate a progression in gait distance today with use of SPC and CGA x2 for safety. PLAN: Continue with global strengthening and gait and transfer training for improved mobility. TREATMENT CODE/TIME: Session 1: 15 minutes; [id number] (10:00) Session 2: 25 minutes; [id number] x2 (14:00)
[2021-02-03 11:04] LABS: COVID-19 PCR Negative (Negative)
[2021-02-03] MEDS: Lidocaine 5% Patch 1 PATCH TP (13:02)
[2021-02-03] MEDS: traMADol 50 MG TAB PO ×2 (15:03→21:17)
--- NOTE | 2021-02-03 15:24 | NUR.NOTE ---
Nursing Note: 1520: pt noted to have taken off the lidocaine and nicotine patches and placed on table. nicotine patch moved to left posterior shoulder and lidocaine patch disposed of.
[2021-02-03 16:14] VITALS: BP 159/87; PULSE 82; RESP 18; TEMP 36.5; O2SAT 97
[2021-02-03] MEDS: Gabapentin 100 MG CAP 200 MG PO (20:59)
[2021-02-03] MEDS: Nicotine 7 MG/24 HR PATCH TD (20:59)
[2021-02-03] MEDS: Simvastatin 20 MG TAB PO (21:00)
[2021-02-03] MEDS: Citalopram 10 MG TAB PO (21:00)
[2021-02-03] MEDS: Melatonin 3 MG TAB PO (21:00)
[2021-02-03] MEDS: Latanoprost 0.005% 2.5 ML BTL OP (21:01)
[2021-02-04 00:02] VITALS: BP 152/80; PULSE 83; RESP 20; TEMP 36.5; O2SAT 96
[2021-02-04] MEDS: Heparin 5,000 UNITS/ML VIAL 5000 UNITS SC ×2 (05:36→17:56)
[2021-02-04 07:31] VITALS: BP 117/66; PULSE 83; RESP 20; TEMP 36.8; O2SAT 96
[2021-02-04 07:32] LABS: HCT 24.2 % (36.0-46.0); HGB 8.1 g/dL (11.2-15.7); MCH 29.9 pg (27.0-33.0); MCHC 33.5 % (32.0-36.0); MCV 89.3 fL (80-95); MPV 9.7 fL (8.0-11.0); Platelet Count 247 10^3/uL (130-400); RBC 2.71 10^6/uL (3.93-5.22); RDW 14.2 % (11.7-14.6); WBC 8.36 10^3/uL (4.4-10.8)
[2021-02-04 07:42] LABS: Anion Gap 9.3 mmol/L (3-11); BUN 17 mg/dL (7-18); CO2 22.7 mmol/L (21.0-32.0); CREATININE 1.7 mg/dL (0.55-1.02); Calcium 7.5 mg/dL (8.5-10.1); Chloride 110 mmol/L (98-107); Estimated GFR 29.98 (mL/min/1.73m2); Glucose 147 mg/dL (74-106); Potassium 3.7 mmol/L (3.5-5.1); Sodium 142 mmol/L (136-145)
[2021-02-04] MEDS: Acetaminophen 325 MG TAB 650 MG PO ×3 (09:00→21:13)
[2021-02-04] MEDS: amLODIPine 2.5 MG TAB PO (09:00)
[2021-02-04] MEDS: Ferrous Sulfate 325 MG TAB PO ×3 (09:00→21:12)
[2021-02-04] MEDS: Aspirin 81 MG CHEW PO (09:00)
[2021-02-04] MEDS: Polyethylene Glycol 3350 17 GM PACKET PO (09:01)
[2021-02-04] MEDS: Normal Saline Flush 10 ML SYR IVP ×2 (09:01→13:34)
[2021-02-04] MEDS: Cyanocobalamin 500 MCG TAB 1000 MCG PO (09:01)
[2021-02-04] MEDS: Timolol 0.5% 5 ML BTL OP ×2 (09:49→21:15)
[2021-02-04] MEDS: Brimonidine 0.15% 5 ML BTL OP ×2 (09:50→21:16)
--- NOTE | 2021-02-04 11:09 | PT.INTREAT ---
Date of service: 02/04/21 Time of Service: 09:21 PT Notes Visit Reasons: Fractured Humerous Inpatient Physical Therapy Treatment Note [facility] Date: 02/04/2021 PRECAUTIONS: Fall SUBJECTIVE: Nya states that she is tired today. She reports that she has been experiencing a full-body jerking motion today, that is abnormal for her. OBJECTIVE: PAIN: Patient reports pain in R UE with all ROM activities BED MOBILITY/TRANSFERS Sit-stand: CGA Stand-sit: CGA GAIT Assistive Device: SPC Weight bearing: NWB on R UE Assist: CGA x2 Distance: 10' x2 Deviation: Sling on R, uncontrollable full-body jerking movements THEREX: Performed gentle PROM to R into shoulder flexion/extension and abduction/adduction, elbow flexion/extension, forearm supination/pronation, wrist flexion/extension, and active gripping, with c/o pain in R shoulder and elbow with each exercise. TOILETING: Patient toileted with assist ASSESSMENT: Patient tolerated session with c/o R UE pain with all ROM activities. Adjustments made to sling prior to ambulating due to ill-fit. Patient demonstrates uncontrollable full-body jerking motions throughout session, causing gait training to be unsafe without CGA x2. PLAN: Continue with global strengthening and gait and transfer training for improved mobility. TREATMENT CODE/TIME: Session 1: 23 minutes; [id number], [id number] (09:21) Session 2: 6 minutes; no charge (11:27)
--- NOTE | 2021-02-04 11:22 | PDOC.CMPRO ---
- If Service Date Differs Date of service: 02/04/21 Time of Service: 11:23 Care Management Progress Note S/O:Janel was sitting up in a chair when CM met with her. She was pleasant and greeted CM with a smile, seeming to remember her from previous encounters this week. CM visited Janel shortly after an attempted video consult with Dr. Dumont, psychiatrist. Janel had been unwilling to cooperate with the session. She explained to CM that she was not about to talk to a strange man she did not know. When asked about the obvious twitching of her face and jaw she admitted it was uncomfortable. Orders have been entered to increase her clozapine dose a bit as it had been cut in half due to a very high blood level. Janel is a smoker and this affects the dosing and effectiveness of the drug. She has been accepted at [facility] for placement on Sunday. A: Janel is a 65 year old woman admitted on 01/29/21 with a fractured humerus P:Janel will not be able to return to [place] where she lives at this time due to staffing issues. Referrals were sent to [facility] and to [facility] with Janel's permission. A bed offer was received for [facility] for [facility]; no word from [facility].CM will continue to support Janel and assess for discharge planning needs.
--- NOTE | 2021-02-04 12:57 | NUR.NOTE ---
Nursing Note: At this time, patient stated she needed to use the restroom. Patient said she is hearing voices in her head. She stated that they were mean and calling her a slut and a whore. Patient got on commode with 2 assist. Patient told me that she thought these voices in her head were her doctors fault and they put them there. Patient voided and then told the nurse that the voices in her head were her ex-. The nurse asked if he was mean and she stated yes he was mean. Patient said that mental health is no help with these voices in her head. Patient reminded she is in a safe environment and we are here to help her.
[2021-02-04] MEDS: diphenhydrAMINE 50 MG/ML VIAL 25 MG IVP (13:37)
--- NOTE | 2021-02-04 15:20 | PGE_ITS ---
Date of Service Date of service: 02/04/21 Time of Service: 15:20 Assessment and Plan Assessment and plan (1) Withdrawal syndrome: Status: Acute Assessment and plan: as manifested by movement disorder. thought to be caused by reduction in clozaril dose from 200 at hs to 100 at hs for a elevated level on admission thought to be cause of her movement disorder her case discussed with DR Dumont who review record and interviewed patient. his impression is: withdrawal emergent dystonia and his recommendations are to increase HS dose to 150 mg from 100 mg, keep am dose at 25 mg. (2) Kidney failure: Status: Chronic Assessment and plan: continues to improve off IV fluids. acute on chronic, no obstructing process seen on CT scan on 01/27. ATN secondary to hypotension while in the ED avoid nephrotoxic drugs and renal dose as needed. quan catheter placed 01/29/21 and discontinued yesterday, she is voiding without difficulty (3) Closed fracture of proximal end of right humerus: Status: Acute Assessment and plan: continue sling PT/OT referral pain management orthopedic consulted and evaluated yesterday with the following recommendations: Recommend regular sling for comfort about 4-6 weeks when ambulatory. Sling should be removed when resting in chair or bed. May elevate forearm on pillow. Light use right upper extremity for essential ADLs okay. Encourage daily gentle passive range of motion about the shoulder and active range of motion about hand and elbow to prevent stiffness. Follow-up at [facility] orthopedics as already arranged in 1-[address] Pérez or an orthopedic physician assistant film editor Qualifiers: Encounter type: initial encounter Fracture morphology: other fracture Fracture alignment: nondisplaced Qualified Code(s): S42.294A - Other nondisplaced fracture of upper end of right humerus, initial encounter for closed fracture (4) Diabetes mellitus: Status: Chronic Assessment and plan: diabetic diet sliding scale ac/hs continue to hold metformin in setting of increased creatinine, can resume tomorrow if improved enough. 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 her hs dose was decreased by 50% to 100 mg, am dose remained the same. today developed symptoms of EPS with movement disorder. discussed dosing with DR Dumont, see note above. increasing HS dose to 150 mg keep am dose at 25 mg. continue to closely follow (6) Hypomagnesemia: Status: Resolved Assessment and plan: normalized with supplementation. (7) Discharge planning issues: Status: Acute Assessment and plan: care management following will need swing level care once medically stable. will remain here this weekend as [facility] is not accepting admissions until sunday. discussed with DR Hill Subjective Subjective Interval history since last seen: this morning noted to have involuntary movement disorder involving the entire body, also reported having hallucinations. no other c/o. she was unable to safely ambulate with physical therapy. Exam Const General: no acute distress and ill appearing chronically Nutritional Appearance: overweight Orientation: awake (arousable), oriented to person and oriented to place [facility] Head: normal to inspection, normocephalic and atraumatic Face and sinus: normal facial exam Mouth: moist mucous membranes abnormal (Slightly dry) Eyes General: appearance normal, both eyes and all related structures Alignment and Position: alignment normal Periorbital: periorbital findings normal Eyelids: eyelids normal Conjunctivae: conjunctivae normal Sclera: sclerae normal Cornea: corneas normal Pupils: PERRL EOM: EOM intact bilaterally Direct ophthalmoscopy: normal light reflex Neck Neck: normal visual inspection, full ROM, trachea midline, supple and nontender Resp Effort & Inspection: normal respiratory effort Auscultation: diminished lung sounds bilaterally in the lower lung [place] Cardio Rate: regular rate Rhythm: regular rhythm GI Palpation: soft Auscultation: normal bowel sounds General: bimanual renal exam normal bilaterally (quan placed, draining medium yellow urine) Back/Spine/Pelvis Back: no CVA tenderness and No back tenderness Skin General skin exam: no rashes or lesions noted Neuro General: patient awake and oriented Patient Orientation: Person and Place Cognition: abnormal cognition (sedate/) Speech: speech normal Motor: muscle tone normal throughout Sensory Exam: no sensory deficits noted Extrem Right upper extremity: shoulder/upper arm (in a sling, 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
[2021-02-04 15:26] VITALS: BP 152/72; PULSE 83; RESP 18; TEMP 37.6; O2SAT 95
--- NOTE | 2021-02-04 15:35 | W.PSYCHCONSU ---
Date of service: 02/04/21 Time of Service: 15:35 History of Present Illness History of Present Illness Chief Complaint: I told those cows to leave me alone Narrative: 4- hour Consultation requested by Annemarie Payan to evaluate mental status and involuntary movements in patients. Patient was admoitted after fall and broken femur. Noted for altered mental status, kidney injury. In consultation with a psychiatrist john, her clozapine dose was redeuced from 225 mg daily to 125 mg daliyt due to elevated cloazapine level of 1200 and lack for metabolism inducing effects of smoked tobacco. Patient mental status was noted to improve over time but a new involuntary motions of face, mouth and arms emerged, as did psychotic symptoms of paranoia , delusions, and auditory hallucinations. Patient is difficult to interview due to inattention and disorientation. She is noted disoriented to place, time, and circumstance . She is paranoid and fearful. She is believed to be a patient at [facility] and has had a long history of paranoid schizophrenia. She has lived in a [facility] in the community. Review of Systems All systems reviewed & are unremarkable except as noted in HPI and below [facility] Medical History Ankle pain, left Auditory hallucinations Back pain Calcium kidney stone Chronic constipation COPD (chronic obstructive pulmonary disease) Depressive disorder Diabetes mellitus DNI (do not intubate) DNR (do not resuscitate) Falls Fatigue Fracture of orbital floor, left side, sequela GERD (gastroesophageal reflux disease) Glaucoma Headache Hip pain, bilateral Hyperlipidemia Hypertension Insomnia Intracranial aneurysm Knee pain, bilateral Low back pain Lumbar back pain Migraine headache with aura Migraine headache without aura Osteoarthritis Overweight Paranoid schizophrenia POLST (Physician Orders for Life-Sustaining Treatment) Polyarthralgia Tobacco use disorder Toe infection Umbilical hernia without mention of obstruction or gangrene Urinary frequency Vitamin D deficiency Surgical History H/O: hysterectomy History of bilateral tubal ligation Status post coil embolization of cerebral aneurysm Family History Father Colon cancer Renal cancer Sister Breast cancer Mother Abdominal aortic aneurysm Brother Psychiatric illness Social History Smoking/Tobacco Use Status: Current every day Tobacco Type: cigarettes Smoking risk assessment performed?: Yes Alcohol Intake: former Drug use: Current Sobriety Substance use type: does not use Do you feel safe at home: Yes Do you feel safe in your relationship?: Yes Additional Social history: unable to assess [facility] Exam Narrative Exam Narrative: Alert. In bed. No apparent distress. Small of stature. Appears frail and older than stated age. Speech is soft, sparse, non-spontaneous. Thought process is slowed and incoherent. Thought content is noted for paranoid delusions, and auditory hallucinations. No suicidal urges articulated. Oriention is grossly impaired as she is unable to identify where she is, what day it is, or the circumstances of her current situation. She is aware of new involuntary motions, which she finds distressing. mood is somewhat irritable and anxious. Cognitions are grossly impaired. Insight and judgment are limited. Assessment/Plan Sudden onset of dystonia likely represents (Withdrawal Emergent Dystonia that can occur upon the abrupt discontinuation or dose reduction in antipsychoticmedications. This can also account for the increase in apparent psychotic symptoms, thought given her acute disorientation, her ongoing altered mental status is likely represents a residual delirium process, either toxic or metabolic.\ Addressing the dystonia involves resuming a portion of the reduced dose. Given she was taking 200 mg at HS and dose was reduced to 100mg, I would suggest increasing HS dose of clozapine to 150 mg QHS. If waxing and waning level of consciousness, and gross disorganization persist, this could represent residual delirium, the source of which should be identified and rectified. This precess may take a considerable amount of time, given her cerebral vulnerabilities that result from longstanding schizophrniea. Thank you for the opportunity to participate in the care of your patient. Results Last Vital Signs Temp 37.6 C H 02/04/21 15:26 Pulse 83 02/04/21 15:26 Resp 18 02/04/21 15:26 BP 152/72 H 02/04/21 15:26 Pulse Ox 95 02/04/21 15:26 Labs Result diagrams: 02/04/21 07:16 02/04/21 07:16 Labs: Laboratory Results - last 24 hr 02/04/21 02/04/21 07:16 07:16 WBC 8.36 RBC 2.71 L Hgb 8.1 L Hct 24.2 L MCV 89.3 MCH 29.9 MCHC 33.5 RDW 14.2 Plt Count 247 MPV 9.7 Sodium 142 Potassium 3.7 Chloride 110 H Carbon Dioxide 22.7 Anion Gap 9.3 BUN 17 Creatinine 1.7 H Estimated GFR/1.73 m2 29.98 Glucose 147 H Calcium 7.5 L
--- NOTE | 2021-02-04 15:49 | CHAPLAIN ---
Nya was sitting up in her chair when I visited. She asked to use the bathroom, so we rang the [employer] for her nurse or NEWSPAPER OR PERIODICAL EDITOR. Nya said she didn't sleep well last night. She talked about her family and [facility], where she lives now. She was pleasant, talked slowly and seemed to like being in conversation.
[2021-02-04] MEDS: Nicotine 7 MG/24 HR PATCH TD (21:14)
[2021-02-04] MEDS: Citalopram 10 MG TAB PO (21:16)
[2021-02-04] MEDS: Latanoprost 0.005% 2.5 ML BTL OP (21:16)
[2021-02-04] MEDS: Gabapentin 100 MG CAP 200 MG PO (21:17)
[2021-02-04] MEDS: Simvastatin 20 MG TAB PO (21:17)
[2021-02-04] MEDS: Melatonin 3 MG TAB PO (21:18)
[2021-02-05 00:34] VITALS: BP 150/70; PULSE 83; RESP 18; TEMP 36.6; O2SAT 97
[2021-02-05] MEDS: Heparin 5,000 UNITS/ML VIAL 5000 UNITS SC (06:17)
[2021-02-05 07:30] VITALS: BP 162/70; PULSE 86; RESP 17; TEMP 36.9; O2SAT 95
[2021-02-05] MEDS: Brimonidine 0.15% 5 ML BTL OP ×2 (09:08→20:52)
[2021-02-05] MEDS: Timolol 0.5% 5 ML BTL OP ×2 (09:09→20:52)
[2021-02-05] MEDS: Acetaminophen 325 MG TAB 650 MG PO ×3 (09:10→20:50)
[2021-02-05] MEDS: amLODIPine 2.5 MG TAB PO (09:10)
[2021-02-05] MEDS: Cyanocobalamin 500 MCG TAB 1000 MCG PO (09:10)
[2021-02-05] MEDS: Aspirin 81 MG CHEW PO (09:10)
[2021-02-05] MEDS: Ferrous Sulfate 325 MG TAB PO ×2 (09:10→20:50)
--- NOTE | 2021-02-05 09:22 | PT.INTREAT ---
PT Notes Visit Reasons: Fractured Humerous Inpatient Physical Therapy Treatment Note [facility] Date: 02/05/21 SUBJECTIVE: Nya states that she is frustrated with the amount of twitching she has. She reports that it affects her pain as well as mentally. She requests to go to the bathroom and get back into bed. OBJECTIVE: [] BED MOBILITY/TRANSFERS Sit-supine: CGA Sit-stand:min A Stand-sit: CGA Chair-bed: mod A of 1. GAIT Assistive Device: MACHINE MAINTENANCE SERVICER Weight bearing: full Assist: mod A of 1 Distance: 3 steps, 2 steps THEREX: refused ASSESSMENT: tolerated session fairly well. Difficulty expressing herself due to twitching. She would begin speaking and then twitch and abruptly stop conversation. Losing her thought process and increasing her frustration. PLAN: will continue to progress her functional mobility to tolerance following PT POC. TREATMENT CODE/TIME: 22 min beginning [id number]. [id number]
[2021-02-05] MEDS: LORazepam 2 MG/ML VIAL 1 MG IVP (13:12)
[2021-02-05] MEDS: Lidocaine 5% Patch 1 PATCH TP (13:12)
--- NOTE | 2021-02-05 14:51 | PGE_ITS ---
Date of Service Date of service: 02/05/21 Time of Service: 14:54 Assessment and Plan Assessment and plan (1) Withdrawal syndrome: Start date: 02/05/21 Start time: 15:15 Status: Acute Assessment and plan: as manifested by movement disorder. thought to be caused by reduction in clozaril dose from 200 at hs to 100 at hs for a elevated level on admission thought to be cause of her movement disorder her case discussed with DR Dumont who review record and interviewed patient. his impression is: withdrawal emergent dystonia and his recommendations are to increase HS dose to 150 mg from 100 mg, keep am dose at 25 mg. Will also give benadryl for dystonia she is also having tardive dyskinesa, which ativan has been effective will order for this BID with one prn dose Qualifiers: Substance type: other psychoactive substance Qualified Code(s): F19.939 - Other psychoactive substance use, unspecified with withdrawal, unspecified (2) Kidney failure: Start date: 02/05/21 Start time: 15:20 Status: Chronic Assessment and plan: continues to improve off IV fluids. acute on chronic, no obstructing process seen on CT scan on 01/27. ATN secondary to hypotension while in the ED avoid nephrotoxic drugs and renal dose as needed. quan catheter placed 01/29/21 and on 01/30 she is voiding without difficulty Qualifiers: Renal failure chronicity: acute on chronic Acute renal failure type: unspecified Chronic kidney disease stage: stage 1 Qualified Code(s): N17.9 - Acute kidney failure, unspecified; N18.1 - Chronic kidney disease, stage 1 (3) Closed fracture of proximal end of right humerus: Start date: 02/05/21 Start time: 15:21 Status: Acute Assessment and plan: continue sling PT/OT referral pain management orthopedic consulted and evaluated yesterday with the following recommendations: Recommend regular sling for comfort about 4-6 weeks when ambulatory. Sling should be removed when resting in chair or bed. May elevate forearm on pillow. Light use right upper extremity for essential ADLs okay. Encourage daily gentle passive range of motion about the shoulder and active range of motion about hand and elbow to prevent stiffness. Follow-up at [facility] orthopedics as already arranged in 1-[address] Pérez or an orthopedic physician assistant to the director Qualifiers: Encounter type: initial encounter Fracture morphology: other fracture Fracture alignment: nondisplaced Qualified Code(s): S42.294A - Other nondisplaced fracture of upper end of right humerus, initial encounter for closed fracture (4) Diabetes mellitus: Start date: 02/05/21 Start time: 15:21 Status: Chronic Assessment and plan: diabetic diet sliding scale ac/hs continue to hold metformin in setting of increased creatinine, can resume tomorrow if improved enough. Qualifiers: Diabetes mellitus type: type 2 Diabetes mellitus superintendent terminal insulin use: without long-term use Diabetes mellitus complication status: without complication Qualified Code(s): E11.9 - Type 2 diabetes mellitus without complications (5) Paranoid schizophrenia: Start date: 02/05/21 Start time: 15:28 Status: Acute Assessment and plan: clozaril level markedly elevated on admission, which is likely secondary to her not smoking while on this dosing. her hs dose was decreased by 50% to 100 mg, am dose remained the same. today developed symptoms of EPS with movement disorder. discussed dosing with DR Dumont, see note above. increasing HS dose to 150 mg keep am dose at 25 mg. continue to closely follow (6) Hypomagnesemia: Start date: 02/05/21 Start time: 15:29 Status: Resolved Assessment and plan: normalized with supplementation. (7) Discharge planning issues: Start date: 02/05/21 Start time: 15:30 Status: Acute Assessment and plan: care management following will need swing level care once medically stable. will remain here this weekend as [facility] is not accepting admissions until sunday. discussed with Dr Brewer Subjective Subjective Patient reports: other Interval history since last seen: States felling not that well. Continues to have tardive dyskinesa with jerking and lip smacking. She was given a dose of ativan IV with good results. Will give PO ativan BID scheduled with a PRN dose as per uptodate it is recommended that benzo's be used to help with this. Will continue while clozapine is situated. otherwise she is AAO x 3, able to move fingers on left arm CMST intact, arm in sling. Denies CP, SOB, N/V/D Exam Narrative Exam Narrative: General: obese Middle-aged female, AAOx3, sitting up in bed. HEENT: EOMI, MMM Heart: RRR, tachycardic Lungs: CTAB Abdomen: soft, nontender, nondistended Extremities: no edema BLE's, Left arm in sling, CMST+ Objective Last Vital Signs Temp 36.6 C 02/05/21 00:34 Pulse 83 02/05/21 00:34 Resp 18 02/05/21 00:34 BP 150/70 H 02/05/21 00:34 Pulse Ox 97 02/05/21 00:34
[2021-02-05 15:30] VITALS: BP 121/88; PULSE 72; RESP 18; TEMP 37.1; O2SAT 92
[2021-02-05 20:48] VITALS: BP 151/60; RESP 18; TEMP 36.6; O2SAT 97
[2021-02-05] MEDS: Simvastatin 20 MG TAB PO (20:51)
[2021-02-05] MEDS: Gabapentin 100 MG CAP 200 MG PO (20:51)
[2021-02-05] MEDS: Citalopram 10 MG TAB PO (20:51)
[2021-02-05] MEDS: Melatonin 3 MG TAB PO (20:51)
[2021-02-05] MEDS: guaiFENesin 600 MG TABCR PO (20:51)
[2021-02-05] MEDS: LORazepam 1 MG TAB PO (20:51)
[2021-02-05] MEDS: Latanoprost 0.005% 2.5 ML BTL OP (20:52)
[2021-02-05] MEDS: Nicotine 7 MG/24 HR PATCH TD (20:52)
[2021-02-06 00:17] VITALS: BP 161/71; PULSE 83; RESP 20; TEMP 36.5; O2SAT 95
[2021-02-06] MEDS: Heparin 5,000 UNITS/ML VIAL 5000 UNITS SC ×2 (06:33→17:35)
[2021-02-06] MEDS: traMADol 50 MG TAB PO ×4 (07:08→20:12)
[2021-02-06 07:30] VITALS: BP 146/78; PULSE 103; RESP 17; TEMP 37.1; O2SAT 93
[2021-02-06 07:51] LABS: Abs Immature Grans 0.04 10^3/uL (0.0-0.06); Absolute Basophil Count 0.03 10^3/uL (0.0-0.2); Absolute Eosinophil Count 0.23 10^3/uL (0.0-0.7); Absolute Lymphocyte Count 1.13 10^3/uL (1.2-3.4); Absolute Monocyte Count 0.35 10^3/uL (0.1-0.8); Absolute Neutrophil Count 5.43 10^3/uL (1.2-6.7); Basophils % 0.4; Eosinophils % 3.2; HCT 28.4 % (36.0-46.0); HGB 8.9 g/dL (11.2-15.7); Immature Grans % 0.6; Lymphocytes % 15.7; MCH 29.4 pg (27.0-33.0); MCHC 31.3 % (32.0-36.0); MCV 93.7 fL (80-95); MPV 9.4 fL (8.0-11.0); Monocytes % 4.9; Neutrophils % 75.2; Nucleated RBC 0 %; Platelet Count 312 10^3/uL (130-400); RBC 3.03 10^6/uL (3.93-5.22); RDW 15.2 % (11.7-14.6); WBC 7.21 10^3/uL (4.4-10.8)
[2021-02-06 07:58] LABS: Anion Gap 9.3 mmol/L (3-11); BUN 12 mg/dL (7-18); CO2 26.7 mmol/L (21.0-32.0); CREATININE 1.5 mg/dL (0.55-1.02); Calcium 8.8 mg/dL (8.5-10.1); Chloride 107 mmol/L (98-107); Estimated GFR 34.64 (mL/min/1.73m2); Glucose 152 mg/dL (74-106); Magnesium 1.7 mg/dL (1.8-2.4); Potassium 3.8 mmol/L (3.5-5.1); Sodium 143 mmol/L (136-145)
[2021-02-06] MEDS: guaiFENesin 600 MG TABCR PO ×2 (08:30→20:12)
[2021-02-06] MEDS: LORazepam 1 MG TAB PO (08:30)
[2021-02-06] MEDS: Aspirin 81 MG CHEW PO (08:30)
[2021-02-06] MEDS: Cyanocobalamin 500 MCG TAB 1000 MCG PO (08:30)
[2021-02-06] MEDS: Ferrous Sulfate 325 MG TAB PO ×3 (08:30→20:13)
[2021-02-06] MEDS: Polyethylene Glycol 3350 17 GM PACKET PO (08:31)
[2021-02-06] MEDS: Acetaminophen 325 MG TAB 650 MG PO ×4 (08:31→20:12)
[2021-02-06] MEDS: Insulin Aspart 300 UNITS/3 ML PEN SC ×3 (08:31→17:34)
[2021-02-06] MEDS: amLODIPine 2.5 MG TAB PO (08:31)
[2021-02-06] MEDS: Normal Saline Flush 10 ML SYR IVP (08:31)
[2021-02-06] MEDS: Brimonidine 0.15% 5 ML BTL OP ×2 (08:32→20:14)
[2021-02-06] MEDS: Timolol 0.5% 5 ML BTL OP ×2 (08:32→20:11)
[2021-02-06] MEDS: Magnesium Oxide 400 MG TAB 800 MG PO (10:47)
--- NOTE | 2021-02-06 11:56 | PT.INTREAT ---
PT Notes Visit Reasons: Fractured Humerous Inpatient Physical Therapy Treatment Note [facility] Date: 02/06/21 SUBJECTIVE: Nya states that her arm is sore. Does not want it to be exercised. She is agreeable after I explain what I need to do and that it is on MD orders. States she is feeling better than she did yesterday. I am not twitching as much today. OBJECTIVE: [] BED MOBILITY/TRANSFERS Supine-sit: CGA Sit-supine: CGA Sit-stand: CGA Stand-sit: CGA GAIT Assistive Device: SPC Weight bearing: full Assist: CGA Distance: approx 65' in room. THEREX: took her through some PROM of GH jt as well as AROM of wrist and elbow. See flowsheet for details. ASSESSMENT: tolerated session well. Seemed a little confused at times. Was easily redirected. Refused further exercises stating she had enough. No twitching noted today, and was steadier on her feet. PLAN: continue to progress following PT POC. TREATMENT CODE/TIME: 20 min. [id number].
[2021-02-06] MEDS: Lidocaine 5% Patch 1 PATCH TP (11:57)
[2021-02-06 15:32] VITALS: BP 122/73; PULSE 75; RESP 16; TEMP 36.5; O2SAT 98
[2021-02-06] MEDS: Cyclobenzaprine 10 MG TAB 5 MG PO (15:56)
--- NOTE | 2021-02-06 17:53 | PGE_ITS ---
Date of Service Date of service: 02/06/21 Time of Service: 17:53 Assessment and Plan Assessment and plan (1) Withdrawal syndrome: Start date: 02/06/21 Start time: 17:58 Status: Acute Assessment and plan: as manifested by movement disorder. thought to be caused by reduction in clozaril dose from 200 at hs to 100 at hs for a elevated level on admission thought to be cause of her movement disorder this caused her to have dystonia and tardive dyskinsea her case discussed with DR Membreon who review record and interviewed patient. his impression is: withdrawal emergent dystonia and his recommendations are to increase HS dose to 150 mg from 100 mg, keep am dose at 25 mg. Benadryl was given with good effect and ativan, ticks are improved, no more tongue smacking or jerking. She feels really good today she is just nervous about getting up with PT and moving around. Qualifiers: Substance type: other psychoactive substance Qualified Code(s): F19.939 - Other psychoactive substance use, unspecified with withdrawal, unspecified (2) Kidney failure: Start date: 02/06/21 Start time: 18:33 Status: Chronic Assessment and plan: continues to improve off IV fluids. acute on chronic, no obstructing process seen on CT scan on 01/27. ATN secondary to hypotension while in the ED avoid nephrotoxic drugs and renal dose as needed. quan catheter placed 01/29/21 and on 01/30 she is voiding without difficulty Qualifiers: Acute renal failure type: unspecified Chronic kidney disease stage: stage 1 Renal failure chronicity: acute on chronic Qualified Code(s): N17.9 - Acute kidney failure, unspecified; N18.1 - Chronic kidney disease, stage 1 (3) Closed fracture of proximal end of right humerus: Start date: 02/06/21 Start time: 18:34 Status: Acute Assessment and plan: continue sling working with PT/OT pain management orthopedic consulted and evaluated with the following recommendations: Recommend regular sling for comfort about 4-6 weeks when ambulatory. Sling should be removed when resting in chair or bed. May elevate forearm on pillow. Light use right upper extremity for essential ADLs okay. Encourage daily gentle passive range of motion about the shoulder and active range of motion about hand and elbow to prevent stiffness. Follow-up at [facility] orthopedics as already arranged in 1-[address] Pérez or an orthopedic physician clinical education assistant Qualifiers: Encounter type: initial encounter Fracture alignment: nondisplaced Fracture morphology: other fracture Qualified Code(s): S42.294A - Other nondisplaced fracture of upper end of right humerus, initial encounter for closed fracture (4) Diabetes mellitus: Start date: 02/06/21 Start time: 18:35 Status: Chronic Assessment and plan: diabetic diet sliding scale ac/hs continue to hold metformin in setting of increased creatinine, can resume tomorrow if improved enough. Qualifiers: Diabetes mellitus complication status: without complication Diabetes mellitus assisted insulin use: without intermediate project manager use Diabetes mellitus type: type 2 Qualified Code(s): E11.9 - Type 2 diabetes mellitus without complications (5) Paranoid schizophrenia: Start date: 02/06/21 Start time: 18:37 Status: Acute Assessment and plan: Due to decreasing her dosage she developed tardive dyskinesa and dystonia, causing jerking movements, lip smacking and other invo luntary movements. she was given ativan and benadryl. Today she has had much improvement of her symptoms. As above. (6) Hypomagnesemia: Start date: 02/06/21 Start time: 18:41 Status: Acute Assessment and plan: Mag level 1.7, repeleted with oral mag. continue to monitor repeat labs tomorrow. (7) Discharge planning issues: Start date: 02/06/21 Start time: 18:43 Status: Acute Assessment and plan: care management following will need swing level care once medically stable. will remain here this weekend as [facility] is not accepting admissions until sunday. discussed with Dr Brewer Subjective Subjective Patient reports: no new complaints Interval history since last seen: Feeling better tardive dyskinesa with dystonia improved with bendaryl and ativan. Ativan halved, and will be discontinued in the am. CMST+ Possible discharge tomorrow. Denies CP, sOB, n/v/d Exam Narrative Exam Narrative: General: obese Middle-aged female, AAOx3, sitting up in bed. HEENT: EOMI, MMM Heart: RRR, n Lungs: CTAB Abdomen: soft, nontender, nondistended Extremities: no edema BLE's, Left arm in sling, CMST+ Objective Last Vital Signs Temp 36.5 C 02/06/21 15:32 Pulse 75 02/06/21 15:32 Resp 16 02/06/21 15:32 BP 122/73 02/06/21 15:32 Pulse Ox 98 02/06/21 15:32 Laboratory Results - last 24 hr 02/06/21 02/06/21 07:04 07:04 WBC 7.21 RBC 3.03 L Hgb 8.9 L Hct 28.4 L MCV 93.7 MCH 29.4 MCHC 31.3 L RDW 15.2 H Plt Count 312 MPV 9.4 Immature Gran % 0.6 Neutrophils % 75.2 Lymphocytes % 15.7 Monocytes % 4.9 Eosinophils % 3.2 Basophils % 0.4 Nucleated RBC % 0 Absolute Neutrophils 5.43 Absolute Lymphocytes 1.13 L Absolute Monocytes 0.35 Absolute Eosinophils 0.23 Absolute Basophils 0.03 Sodium 143 Potassium 3.8 Chloride 107 Carbon Dioxide 26.7 Anion Gap 9.3 BUN 12 Creatinine 1.5 H Estimated GFR/1.73 m2 34.64 Glucose 152 H Calcium 8.8 Magnesium 1.7 L
[2021-02-06] MEDS: Nicotine 7 MG/24 HR PATCH TD (20:11)
[2021-02-06] MEDS: LORazepam 0.5 MG TAB PO (20:12)
[2021-02-06 20:25] VITALS: BP 143/73; PULSE 76; RESP 16; TEMP 36.6; O2SAT 98
[2021-02-06] MEDS: Citalopram 10 MG TAB PO (22:02)
[2021-02-06] MEDS: Simvastatin 20 MG TAB PO (22:02)
[2021-02-06] MEDS: Melatonin 3 MG TAB PO (22:02)
[2021-02-06] MEDS: Gabapentin 100 MG CAP 200 MG PO (22:02)
[2021-02-06] MEDS: Latanoprost 0.005% 2.5 ML BTL OP (22:03)
[2021-02-06 23:23] VITALS: BP 104/68; PULSE 81; RESP 18; TEMP 36.8; O2SAT 94
[2021-02-07] MEDS: Heparin 5,000 UNITS/ML VIAL 5000 UNITS SC ×2 (06:16→17:22)
[2021-02-07 07:35] LABS: Anion Gap 7.1 mmol/L (3-11); BUN 14 mg/dL (7-18); CO2 27.9 mmol/L (21.0-32.0); CREATININE 1.6 mg/dL (0.55-1.02); Calcium 9.3 mg/dL (8.5-10.1); Chloride 108 mmol/L (98-107); Estimated GFR 32.15 (mL/min/1.73m2); Glucose 121 mg/dL (74-106); Magnesium 1.9 mg/dL (1.8-2.4); Potassium 4.5 mmol/L (3.5-5.1); Sodium 143 mmol/L (136-145)
[2021-02-07 08:30] VITALS: BP 103/63; PULSE 93; RESP 17; TEMP 37.7; O2SAT 93
[2021-02-07] MEDS: Polyethylene Glycol 3350 17 GM PACKET PO (08:32)
[2021-02-07] MEDS: LORazepam 0.5 MG TAB PO (08:32)
[2021-02-07] MEDS: Ferrous Sulfate 325 MG TAB PO ×3 (08:32→19:42)
[2021-02-07] MEDS: Cyanocobalamin 500 MCG TAB 1000 MCG PO (08:33)
[2021-02-07] MEDS: guaiFENesin 600 MG TABCR PO ×2 (08:33→19:42)
[2021-02-07] MEDS: Acetaminophen 325 MG TAB 650 MG PO ×4 (08:33→19:42)
[2021-02-07] MEDS: amLODIPine 2.5 MG TAB PO (08:34)
[2021-02-07] MEDS: Insulin Aspart 300 UNITS/3 ML PEN SC ×3 (08:34→17:22)
[2021-02-07] MEDS: Aspirin 81 MG CHEW PO (08:34)
[2021-02-07] MEDS: Timolol 0.5% 5 ML BTL OP ×2 (08:35→19:41)
[2021-02-07] MEDS: Brimonidine 0.15% 5 ML BTL OP ×2 (08:35→19:49)
--- NOTE | 2021-02-07 09:00 | DI.RAD_ITS ---
Exam(s) XR SHOULDER RT COMPLETE 2+V EXAM: XR SHOULDER RT COMPLETE 2+V CLINICAL HISTORY: Follow up Prox Hum Fx. TECHNIQUE: 2D digital imaging was performed. COMPARISON: CR,XR XR SHOULDER RT COMPLETE 2+V from 01/27/2021 FINDINGS: Again noted is a previously described fracture the right humeral diaphysis-neck. There is no disloca tion of glenohumeral joint but on the axial image there is offset the fracture fragments more so than previous. Unfortunately the prior study did not have an axial image for accurate comparison. IMPRESSION: DATA REPOSITORY: RADIATION DOSE DELIVERED:
[2021-02-07 09:34] LABS: Abs Immature Grans 0.03 10^3/uL (0.0-0.06); Absolute Basophil Count 0.04 10^3/uL (0.0-0.2); Absolute Eosinophil Count 0.22 10^3/uL (0.0-0.7); Absolute Lymphocyte Count 1.16 10^3/uL (1.2-3.4); Absolute Monocyte Count 0.48 10^3/uL (0.1-0.8); Absolute Neutrophil Count 4.93 10^3/uL (1.2-6.7); Basophils % 0.6; Eosinophils % 3.2; HGB 7.7 g/dL (11.2-15.7); Immature Grans % 0.4; Lymphocytes % 16.9; MCH 29.8 pg (27.0-33.0); MCHC 30.8 % (32.0-36.0); MCV 96.9 fL (80-95); MPV 10.1 fL (8.0-11.0); Neutrophils % 71.9; Nucleated RBC 0 %; Platelet Count 300 10^3/uL (130-400); RBC 2.58 10^6/uL (3.93-5.22); RDW 15.7 % (11.7-14.6); RDW-SD 51.5 fL; WBC 6.86 10^3/uL (4.4-10.8)
[2021-02-07] MEDS: traMADol 50 MG TAB PO ×2 (10:08→15:50)
--- NOTE | 2021-02-07 10:56 | INPN_ITS ---
Date of service: 02/07/21 Time of Service: 10:56 PT Notes Visit Reasons: Fractured Humerous Inpatient Physical Therapy progress note Date: 02/07/21 Date of service: 01/29/2021 through 02/07/2021 Referring Doctor: Annemarie Payan NP PT Orders: PT CONSULT: Evaluate and Treat Precautions: Standard. Fall. Patient Profile/Admitting Diagnosis: Nya is a 65-year-old female who sustained a stable, minimally angulated, impacted 2-part proximal humeral fracture during a fall at [facility] where she resides. Subjective: Continues to report fatigue. Complains of pain in R shoulder during movement. Objective: Apathetic, requires extensive encouragement during sessions due to diminished motivation level. Mental Status: Oriented to person and place. Pain: 6/10 in R shoulder ROM: Right Upper Extremity: Wrist motion only Left Upper Extremity: MOtion through the shoulder flexes to 120 degrees, elbow motion WNL, wrist motion WNL Right Lower Extremity: WFL Left Lower Extremity: WFL Strength: Right Upper Extremity: Mock Up Builder strength fair Left Upper Extremity: Shoulder flexion 4/5, biceps 4+/5, triceps 4+/5, material flow analyst strength good Right Lower Extremity: Globally 4+/5 Left Lower Extremity: Globally 4+/5 Bed Mobility/Transfers: Sit to stand: Standby assist Stand to sit: Standby assist Bed to chair: Standby assist Chair to bed: Standby assist Gait: 6 feet +10 feet +10 feet +10 feet +10 feet using the single-point cane with close wheelchair follow. Frequent rests needed due to low endurance and report of pain 6/10 in right shoulder. Dyskinesias in B LE minimal. Balance: Static Sitting: Normal Dynamic Sitting: Good Static Standing: Fair Dynamic Standing: Poor Special Tests: Mobility Limitations Standardized Measure [facility] AM-PAC 6 clicks Basic Mobility Inpatient Short Form: Raw Score: 21 CMS Score: 29% Informed Consent/Education: Patient instructed in purpose of PT consult and plan of care. ASSESSMENT: Requires moderate verbal cueing for hand placement and correct technique during mobility performance. Low endurance needs, frequent rest. Motivation limited, requires extensive encouragement for participation. Mobility deficit score decreased from 79% to 29% indicating increasing mobility level since start of care. [place] is [place] 50049 moderate complexity based on the following: History: Nya is a 65-year-old female who sustained a stable, minimally angulated impacted 2-part proximal humeral fracture during a fall at [facility] where she resides. Examination: Demonstrable impairment in strength, balance, and mobility level with underlying impairments and functional limitations as exhibited above as well as deficit score of 29% utilizing the [facility] Mobility Inpatient Short Form Presentation: Stable Complexity.:40015 moderate complexity Goals: Goals X1 week 1. Supine-Sit Min Assist. CONTINUE 2. Sit-Supine MIn Assist CONTINUE 3. Sit-Stand Min Assist MET. PROGRESS to independent 4. Stand-Sit Min Assist PROGRESS to independent 5. Bed-Chair Min Assist PROGRESS to independent 6. Gait With Min Assist and use of williams walker up to 50 feet PROGRESS to independent Plan of Care/Treatment Plan: 1-2x/day, 7 days/week x 1 week. Plan of care has been reviewed with the FOOT MITER OPERATOR providing the service under Physical Therapy direction. Initiate Physical Therapy intervention for strengthening, bed mobility, transfers, gait, stairs, balance training, use of assistive device. DISCHARGE RECOMMENDATIONS: Patient will benefit from jail facility placement for continued skilled physical therapy services in order to progress mobility level, strength, and balance in preparation for a safe discharge to home. TREATMENT CODE/TIME: 9753 0 x 40 minutes, 9711 0 x 14 minutes beginning at 10:56 AM. Thank you for the opportunity to participate in the care of this patient. Rina Washington PT, DPT, CLT [facility] [place], [place]
[2021-02-07] MEDS: Lidocaine 5% Patch 1 PATCH TP (11:54)
--- NOTE | 2021-02-07 12:36 | NUR.NOTE ---
Nursing Note: 02/07/21 patient woke up oriented x3 today. ate breakfast and worked well with physical therapy. no hallucinations seen or reported. patient feels well other than having pain in the shoulder after working with physical therapy. patient reports being ready to leave hospital and go to the rehab. Rosa Aguirre RN
--- NOTE | 2021-02-07 13:39 | W.PM.PROGNOT ---
Date of Service Date of service: 02/07/21 Time of Service: 13:39 Assessment and Plan Assessment and plan (1) Withdrawal syndrome: Start date: 02/07/21 Start time: 13:42 Status: Resolved Assessment and plan: Improved, feeling much better she is at baseline. No hallucinations or confusion over the weekend. She has not had any sx resembling reaction to withdrawal since ativan or bendadryl as well. She is looking to be discharged to H/R when she gets accepted. 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 Will restart metformin Qualifiers: Renal failure chronicity: acute on chronic Acute renal failure type: unspecified Chronic kidney disease stage: stage 1 Qualified Code(s): N17.9 - Acute kidney failure, unspecified; N18.1 - Chronic kidney disease, stage 1 (3) Closed fracture of proximal end of right humerus: Start date: 02/07/21 Start time: 13:56 Status: Acute Assessment and plan: continue sling working with PT/OT pain management orthopedic consulted and evaluated with the following recommendations: Recommend regular sling for comfort about 4-6 weeks when ambulatory. Sling should be removed when resting in chair or bed. May elevate forearm on pillow. Light use right upper extremity for essential ADLs okay. Encourage daily gentle passive range of motion about the shoulder and active range of motion about hand and elbow to prevent stiffness. Follow-up at [facility] orth[facility] as already arranged in 1-[address] 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 Doing well. as above (6) Hypomagnesemia: Start date: 02/07/21 Start time: 13:59 Status: Resolved Assessment and plan: resolved. (7) Discharge planning issues: Start date: 02/07/21 Start time: 13:59 Status: Acute Assessment and plan: care management following will need swing level care once medically stable. will remain here until h/r accept her for admission. discussed with Dr Brewer Subjective Subjective Patient reports: feels better Interval history since last seen: Doing well, back to baseline. No confusion or hallucinations all weekend. She feels much better, pain controlled. Sitting up in chair. Her only request is to brush her teeth. Her RUE is in a sling CMST +, she denies CP, SOB, N/V/D. Exam Narrative Exam Narrative: General: obese Middle-aged female, AAOx3, sitting up in chair HEENT: EOMI, MMM Heart: RRR, n Lungs: CTAB Abdomen: soft, nontender, nondistended Extremities: no edema BLE's, Left arm in sling, CMST+ Objective Last Vital Signs Temp 37.7 C H 02/07/21 08:30 Pulse 93 H 02/07/21 08:30 Resp 17 02/07/21 08:30 BP 103/63 02/07/21 08:30 Pulse Ox 93 02/07/21 08:30 Laboratory Results - last 24 hr 02/07/21 02/07/21 06:22 06:22 WBC 6.86 RBC 2.58 L Hgb 7.7 L Hct 25.0 L MCV 96.9 H D MCH 29.8 MCHC 30.8 L RDW 15.7 H Plt Count 300 MPV 10.1 Immature Gran % 0.4 Neutrophils % 71.9 Lymphocytes % 16.9 Monocytes % 7.0 Eosinophils % 3.2 Basophils % 0.6 Nucleated RBC % 0 Absolute Neutrophils 4.93 Absolute Lymphocytes 1.16 L Absolute Monocytes 0.48 Absolute Eosinophils 0.22 Absolute Basophils 0.04 Sodium 143 Potassium 4.5 Chloride 108 H Carbon Dioxide 27.9 Anion Gap 7.1 BUN 14 Creatinine 1.6 H Estimated GFR/1.73 m2 32.15 Glucose 121 H Calcium 9.3 Magnesium 1.9
--- NOTE | 2021-02-07 14:28 | W.INDIABCONS ---
Date of service: 02/07/21 Time of Service: 14:28 Diabetes Inpatient Consult DESCRIPTION/ASSESSMENT: 65 year old female admitted with AMS with long standing hx of DM, HTN. BMI indicates overweight status. Following diabetic diet with adequate intake to meet macronutrient needs. Not considered at nutritional risk. Education not appropriate at this time due to Nya's confusion. Most recent A1C 7.4% (08/17/20) indicates well controlled DM on current DM home meds (metformin 750 mg BID). INTERVENTION: Education not appropriate at this time PLAN: will follow po intake, weight and labs. Time Spent in Nutritional Counseling and Treatment: 0
--- NOTE | 2021-02-07 14:29 | CHAPLAIN ---
Janel was sitting up in her chair when I visited. She said [facility] and wanted help calling her sister, Daija to let her know. I reached Daija on the phone and gave her the message and then Janel spoke with her. Later I learned from Care Management that Janel is not going to [facility] today, but her healthcare liaison will explain that to her. Janel said her arm continues to hurt, but remains calm and is very pleasant during our conversations.
[2021-02-07 15:45] VITALS: BP 139/74; PULSE 80; RESP 18; TEMP 37; O2SAT 96
--- NOTE | 2021-02-07 15:52 | PT.INTREAT ---
PT Notes Visit Reasons: Fractured Humerous 02/07/2021 SUBJECTIVE: Pt noting some discomfort in the R UE with PROM. No pain at rest. Agreeable to PT. OBJECTIVE: TRANSFERS Supine to sit: SBA Sit to supine: SBA Sit to stand: SBA Stand to sit: SBA GAIT Device: SPC Weight bearing: Full LE's Assist: CGA Distance; 5'x2 THEREX: Pt performs multiple sit to stands during toileting and at edge of bed. She receives PROM at the R GH joint and elbow to her tolerance. Toileting: Max A with toileting. ASSESSMENT: Is not feeling very motivated this afternoon. Notes not feeling good after she did get up and move around. Returns to bed. PLAN: Continue current POC. Treatment time: 20 minutes([id number]) Alaina Friedman PTA Clinic location: [facility] [place], [place]
--- NOTE | 2021-02-07 16:41 | CMPROGNOTE_ITS ---
- If Service Date Differs Date of service: 02/07/21 Time of Service: 16:41 Care Management Progress Note S/O:Janel was sitting up in a chair when CM met with her. She was pleasant and greeted CHERRY with a smile, seeming to remember her from previous encounters. Janel stated that she continues to have pain in her right arm. She was finishing lunch and CM asked her if she was right handed. She stated that she was. When asked if she was having difficulty feeding herself with her left hand she said I think I'm doing pretty good, which appeared to be the case. CHERRY had sent a referral to [facility] for short term rehab before returning to [place], but she was declined. On Sunday, when she was having the medication reactions, it was documented that she was hallucinating and confused and paranoid by both her nurse and the psychiatrist who attempted, unsuccessfully, to interview her.This information produced some concerns about accepting Janel into their facility. CM assured the director community organization that Janel has returned to baseline and has been pleasant and cooperative since. They have agreed to reconsider her on Sunday if her behaviores remain appropriate. No response has been received from the [facility]. A: Janel is a 65 year old woman admitted on 01/29/21 with a fractured humerus P:Janel will not be able to return to [place] where she lives at this time due to staffing issues. Referrals were sent to [facility] and to [facility] with Janel's permission. A bed offer was received and then rescinded for [facility] today (see above) no word from [facility]. CM will continue to support Janel and assess for discharge planning needs.
[2021-02-07] MEDS: Nicotine 7 MG/24 HR PATCH TD (19:40)
[2021-02-07] MEDS: Latanoprost 0.005% 2.5 ML BTL OP (19:41)
[2021-02-07] MEDS: Gabapentin 100 MG CAP 200 MG PO (21:20)
[2021-02-07] MEDS: Melatonin 3 MG TAB PO (21:21)
[2021-02-07] MEDS: Simvastatin 20 MG TAB PO (21:21)
[2021-02-07] MEDS: Citalopram 10 MG TAB PO (21:21)
[2021-02-07 23:30] VITALS: BP 100/63; PULSE 75; RESP 18; TEMP 36.5; O2SAT 94
[2021-02-08] MEDS: Heparin 5,000 UNITS/ML VIAL 5000 UNITS SC ×2 (05:46→17:25)
[2021-02-08 06:45] LABS: HCT 26.2 % (36.0-46.0); HGB 8.2 g/dL (11.2-15.7); MCH 30.1 pg (27.0-33.0); MCHC 31.3 % (32.0-36.0); MCV 96.3 fL (80-95); MPV 9.5 fL (8.0-11.0); Platelet Count 287 10^3/uL (130-400); RBC 2.72 10^6/uL (3.93-5.22); RDW 16.4 % (11.7-14.6); RDW-SD 53.1 fL; WBC 7.69 10^3/uL (4.4-10.8)
--- NOTE | 2021-02-08 07:16 | OTTR_ITS ---
Date of service: 02/03/21 Time of Service: 07:35 Occupational Therapy Notes Occupational Therapy Inpatient Treatment Note Date: 02/03/21 PRECAUTIONS: Fall, standard, DNR/DNI SUBJECTIVE: Pt was lying in bed when OT arrived. She is agreeable to OT session and notes that her arm is sore but she is doing ok. OBJECTIVE: PAIN:c/o pain in shoulder FUNCTIONAL MOBILITY Rolling L/R: (I) Supine-sit: (I) Sit-stand: CGA Stand-sit: CGA Bed-Chair: CGA BATHING: Sitting in chair with max (A) Set up/clean up Upper Body: (I) face, max (A) (R) UE, Mod (A) (L) UE Lower Body: max (A) DRESSING: sitting in chair Upper Extremity: mod (A) butler hospital gown Lower Extremity: max (A) TOILETING: Device: commode Assist: mod (A) toileting hygiene ASSESSMENT/PLAN: Continue to progress pts functional (I) TREATMENT CODES/TIME: [id number], 30 minutes (07:35) Yuliya Parker, OTR/L [facility]
[2021-02-08 07:41] VITALS: BP 128/60; PULSE 84; RESP 18; TEMP 36.5; O2SAT 92
--- NOTE | 2021-02-08 08:50 | OT.INTREAT ---
Date of service: 02/08/21 Time of Service: 08:20 Occupational Therapy Notes Occupational Therapy Inpatient Treatment Note Date: 02/08/21 PRECAUTIONS: Fall, standard, DNR/DNI SUBJECTIVE: Pt was sitting in chair when OT arrived, she states that she was not happy this weekend and had to yell. She notes that she is anxious about not knowing when she is returning home. She wants to return today. OBJECTIVE: PAIN:c/o pain in shoulder but pt is sitting with her (R) UE under her leg. OT fixes her arm position and sling and this seems to decrease her discomfort. FUNCTIONAL MOBILITY Sit-stand: CGA Stand-sit: CGA Bed-Chair: CGA BATHING: Sitting in chair with max (A) Set up/clean up Upper Body: (I) face otherwise pt refuses all bathing, OT does explain to pt that she needs to be able to perform this and pt states that she is not happy with not knowing when she is leaving. Max (A) hair DRESSING: sitting in chair Upper Extremity: pt refuses changing her gown Lower Extremity: max (A) pt refuses to utilize sock aide TOILETING: Device: commode Assist: mod (A) toileting hygiene, pt has decreased standing tolerance which requires multiple sit-stands throughout. ASSESSMENT/PLAN: Continue to progress pts functional (I) and increase her overall standing tolerance for her ADL/IADL Routines. TREATMENT CODES/TIME: [id number], 30 minutes (08:20) Yuliya Parker, OTR/L [facility]
[2021-02-08] MEDS: Polyethylene Glycol 3350 17 GM PACKET PO (09:07)
[2021-02-08] MEDS: LORazepam 0.5 MG TAB PO (09:08)
[2021-02-08] MEDS: Aspirin 81 MG CHEW PO (09:09)
[2021-02-08] MEDS: Ferrous Sulfate 325 MG TAB PO ×2 (09:09→19:43)
[2021-02-08] MEDS: Acetaminophen 325 MG TAB 650 MG PO ×4 (09:09→19:43)
[2021-02-08] MEDS: guaiFENesin 600 MG TABCR PO ×2 (09:09→19:42)
[2021-02-08] MEDS: amLODIPine 2.5 MG TAB PO (09:09)
[2021-02-08] MEDS: Brimonidine 0.15% 5 ML BTL OP ×2 (09:10→19:42)
[2021-02-08] MEDS: Insulin Aspart 300 UNITS/3 ML PEN SC ×2 (09:10→12:14)
[2021-02-08] MEDS: Timolol 0.5% 5 ML BTL OP ×2 (09:10→19:43)
--- NOTE | 2021-02-08 09:12 | CMPROGNOTE_ITS ---
- If Service Date Differs Date of service: 02/08/21 Time of Service: 09:12 Care Management Progress Note S/O:Janel was sitting up in a chair when CM met with her. She remains in a good mood most of the time and is eating fairly well. She consumed 50% of her lunch and 75% of her breakfast. Janel verbalizes daily that she wants to go home. She understands that she lives at [place] and refers to the staff by name. CM will contact [facility] again tomorrow to determine if they have reconsidered making a bed offer to Janel as her behavior has been appropriate since her medication issues resolved. A: Janel is a 65 year old woman admitted on 01/29/21 with a fractured humerus P:Janel will not be able to return to [place] where she lives at this time due to staffing issues. Referrals were sent to [facility] and to [facility] with Janel's permission. A bed offer was received and then rescinded for [facility] today (see above) no word from [facility]. CM will continue to support Janel and assess for discharge planning needs.
[2021-02-08] MEDS: Cyanocobalamin 500 MCG TAB 1000 MCG PO (09:22)
--- NOTE | 2021-02-08 10:56 | CHAPLAIN ---
Janel was her usual, pleasant self when I visited with her today. She said that her arm hurts, but other than that she's feeling okay. Yesterday she expected to be transferred to [facility], but that didn't happen and according to Care Management notes the bed offer from [facility] was rescinded. Janel asked for a soda to drink so I got that for her.
[2021-02-08] MEDS: Lidocaine 5% Patch 1 PATCH TP (12:12)
[2021-02-08] MEDS: diphenhydrAMINE 25 MG CAP PO (12:36)
[2021-02-08] MEDS: LORazepam 1 MG TAB PO (12:37)
--- NOTE | 2021-02-08 14:38 | NUR.NOTE ---
Nursing Note: This scribe, acting as preceptor for patient's primary RN today, observes patient throughout the day. at approximately lunch time, pt is noted to have some ticks in face similar to what pt began with on February 04. primary RN reports to LAURA Zapata RN who reports situation to nurse practioner, Cate Chaves who orders medications which are administered to pt per order. this RN asks pt how she is feeling; pt states she is doing fine. RN questions pt as to if she is having any hallucinations similar to what she had on February 04. pt states she is NOT having any hallucinations today and has not for a long time. pt from recliner to bed to bathroom via steady lift for safety. pt placed in bed with alarms in place. continue to monitor.
[2021-02-08 16:15] VITALS: BP 144/76; PULSE 73; RESP 16; TEMP 36.3; O2SAT 93
--- NOTE | 2021-02-08 17:14 | PGE_ITS ---
Date of Service Date of service: 02/08/21 Time of Service: 17:14 Assessment and Plan Assessment and plan (1) Withdrawal syndrome: Start date: 02/08/21 Start time: 17:19 Status: Acute Assessment and plan: Slight reaction today no mental status changes just a few ticks, placed back on am dosing given benadryl and ativan with good results. Qualifiers: Substance type: other psychoactive substance Qualified Code(s): F19.939 - Other psychoactive substance use, unspecified with withdrawal, unspecified (2) Kidney failure: Start date: 02/08/21 Start time: 17:20 Status: Chronic Assessment and plan: At baseline. back on metformin Qualifiers: Renal failure chronicity: acute on chronic Acute renal failure type: unspecified Chronic kidney disease stage: stage 1 Qualified Code(s): N17.9 - Acute kidney failure, unspecified; N18.1 - Chronic kidney disease, stage 1 (3) Closed fracture of proximal end of right humerus: Start date: 02/08/21 Start time: 17: Status: Acute Assessment and plan: continue sling working with PT/OT pain management orthopedic consulted and evaluated with the following recommendations: Recommend regular sling for comfort about 4-6 weeks when ambulatory. Sling should be removed when resting in chair or bed. May elevate forearm on pillow. Light use right upper extremity for essential ADLs okay. Encourage daily gentle passive range of motion about the shoulder and active range of motion about hand and elbow to prevent stiffness. Follow-up at [facility] orthopedics as already arranged in 1-[address] 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 Doing well. as above (6) Discharge planning issues: Start date: 02/08/21 Start time: : Status: Acute Assessment and plan: care management following will need swing level care once medically stable. will remain here until h/r accept her for admission hopefully she will go tommorrow discussed with Dr Brewer Subjective Subjective Patient reports: no new complaints Interval history since last seen: Doing well. No changes, continues to have baseline mentation. She did have some ticks today placed back on morning dose clozapine 25 mg given ativan and benadryl. Denies Cp, SOB, n/v/d. Exam Narrative Exam Narrative: General: obese Middle-aged female, AAOx3, sitting up in chair HEENT: EOMI, MMM Heart: RRR, n Lungs: CTAB Abdomen: soft, nontender, nondistended Extremities: no edema BLE's, Left arm in sling, CMST+ Objective Last Vital Signs Temp 36.5 C 02/08/21 07:41 Pulse 84 02/08/21 07:41 Resp 18 02/08/21 07:41 BP 128/60 02/08/21 07:41 Pulse Ox 92 02/08/21 07:41 Laboratory Results - last 24 hr 02/08/21 06:30 WBC 7.69 RBC 2.72 L Hgb 8.2 L Hct 26.2 L MCV 96.3 H MCH 30.1 MCHC 31.3 L RDW 16.4 H Plt Count 287 MPV 9.5
[2021-02-08] MEDS: Nicotine 7 MG/24 HR PATCH TD (19:42)
[2021-02-08] MEDS: Melatonin 3 MG TAB PO (21:26)
[2021-02-08] MEDS: Simvastatin 20 MG TAB PO (21:26)
[2021-02-08] MEDS: Latanoprost 0.005% 2.5 ML BTL OP (21:28)
[2021-02-08] MEDS: Citalopram 10 MG TAB PO (21:28)
[2021-02-08] MEDS: Gabapentin 100 MG CAP 200 MG PO (21:28)
[2021-02-09 00:14] VITALS: BP 132/63; PULSE 77; RESP 18; TEMP 36.1; O2SAT 98
[2021-02-09 01:59] LABS: Clozapine 937 ng/mL (350-600); Clozapine+Norclozapine Total 1445 ng/mL (>450); Norclozapine 508 ng/mL
[2021-02-09] MEDS: Heparin 5,000 UNITS/ML VIAL 5000 UNITS SC ×2 (05:55→17:21)
[2021-02-09 08:40] VITALS: BP 139/77; PULSE 95; RESP 17; TEMP 36.9; O2SAT 94
--- NOTE | 2021-02-09 08:44 | PDOC.CMPRO ---
- If Service Date Differs Date of service: 02/09/21 Time of Service: 08:44 Care Management Progress Note S/O:Janel was sitting up in bed when CM met with her. She was smiling and pleasant in interaction with CM. She stated that she is feeling well but that she has been told she will not be going anywhere today. [facility] contacted the CM office today to inform them that they received new guidance last evening regarding admissions and that their process will change. It is unclear what those changes will be or if patients can be admitted there at this time. [facility] is in the process of reviewing Janel's referral at this time. A: Janel is a 65 year old woman admitted on 01/29/21 with a fractured humerus P:Janel will not be able to return to [place] where she lives at this time due to staffing issues. Referrals were sent to [facility] and to [facility] with Janel's permission. A bed offer was received and then rescinded for [facility] ; no word from [facility]. CM will continue to support Janel and assess for discharge planning needs.
[2021-02-09] MEDS: Polyethylene Glycol 3350 17 GM PACKET PO (08:50)
[2021-02-09] MEDS: Acetaminophen 325 MG TAB 650 MG PO (08:51)
[2021-02-09] MEDS: Aspirin 81 MG CHEW PO (08:51)
[2021-02-09] MEDS: traMADol 50 MG TAB PO (08:51)
[2021-02-09] MEDS: LORazepam 0.5 MG TAB PO (08:51)
[2021-02-09] MEDS: guaiFENesin 600 MG TABCR PO ×2 (08:51→20:43)
[2021-02-09] MEDS: Ferrous Sulfate 325 MG TAB PO ×3 (08:51→20:43)
[2021-02-09] MEDS: Brimonidine 0.15% 5 ML BTL OP ×2 (08:52→20:43)
[2021-02-09] MEDS: Timolol 0.5% 5 ML BTL OP ×2 (08:52→20:42)
[2021-02-09] MEDS: Cyanocobalamin 500 MCG TAB 1000 MCG PO (08:52)
[2021-02-09] MEDS: Insulin Aspart 300 UNITS/3 ML PEN SC ×2 (08:52→12:41)
[2021-02-09] MEDS: amLODIPine 2.5 MG TAB PO (08:52)
--- NOTE | 2021-02-09 09:36 | OT.INNT ---
Date of service: 02/09/21 Time of Service: 09:36 Occupational Therapy Notes 02/09/21 Pt refused skilled OT services today. She performed her ADLs earlier this morning and states that she is transitioning to SNF today. Yuliya Parker, OTR/L
[2021-02-09] MEDS: Lidocaine 5% Patch 1 PATCH TP (12:40)
--- NOTE | 2021-02-09 15:34 | W.PM.PROGNOT ---
Date of Service Date of service: 02/09/21 Time of Service: Assessment and Plan Assessment and plan (1) Withdrawal syndrome: Start date: 02/09/21 Start time: Status: Acute Assessment and plan: No reactions, no mental status changes, doing well placed back on am dosing Qualifiers: Substance type: other psychoactive substance Qualified Code(s): F19.939 - Other psychoactive substance use, unspecified with withdrawal, unspecified (2) Kidney failure: Start date: 02/09/21 Start time: 30 Status: Chronic Assessment and plan: At baseline. back on metformin Qualifiers: Renal failure chronicity: acute on chronic Acute renal failure type: unspecified Chronic kidney disease stage: stage 1 Qualified Code(s): N17.9 - Acute kidney failure, unspecified; N18.1 - Chronic kidney disease, stage 1 (3) Closed fracture of proximal end of right humerus: Start date: 02/09/21 Start time: Status: Acute Assessment and plan: continue sling working with PT/OT pain management orthopedic consulted and evaluated with the following recommendations: Recommend regular sling for comfort about 4-6 weeks when ambulatory. Sling should be removed when resting in chair or bed. May elevate forearm on pillow. Light use right upper extremity for essential ADLs okay. Encourage daily gentle passive range of motion about the shoulder and active range of motion about hand and elbow to prevent stiffness. Follow-up at [facility] orthopedics as already arranged in 1-[address] Pérez or an orthopedic physician editorial assistant Qualifiers: Encounter type: initial encounter Fracture morphology: other fracture Fracture alignment: nondisplaced Qualified Code(s): S42.294A - Other nondisplaced fracture of upper end of right humerus, initial encounter for closed fracture (4) Diabetes mellitus: Start date: 02/09/21 Start time: 30 Status: Chronic Assessment and plan: diabetic diet sliding scale ac/hs resumed metformin as she is at baseline SSI increased to resistant as she is still elevated at 200's add daily dose lantus 5 units Qualifiers: Diabetes mellitus type: type 2 Diabetes mellitus rn long term care insulin use: without long-term use Diabetes mellitus complication status: without complication Qualified Code(s): E11.9 - Type 2 diabetes mellitus without complications (5) Paranoid schizophrenia: Start date: 02/09/21 Start time: 11:30 Status: Acute Assessment and plan: At baseline. Doing well. as above (6) Discharge planning issues: Start date: 02/09/21 Start time: 11:30 Status: Acute Assessment and plan: care management following will need swing level care once medically stable. will remain here until h/r accept her for admission hopefully she will go tomorrow , HR continues to drag out admission discussed with Dr Brewer Subjective Subjective Patient reports: still having pain Interval history since last seen: Having pain to arm still. She states tylenol with codiene works well on her. Ordered with caution due to renal function. She is awaiting placement. Otherwise not complaints. CMST+. Denies SOB, N/V/D. Exam Narrative Exam Narrative: General: obese Middle-aged female, AAOx3, lying in bed, no jerking or ticks. c/o arm pain HEENT: EOMI, MMM Heart: RRR, n Lungs: CTAB Abdomen: soft, nontender, nondistended Extremities: no edema BLE's, Left arm in sling, CMST+, multiple colors or bruising Objective Last Vital Signs Temp 36.9 C 02/09/21 08:40 Pulse 95 H 02/09/21 08:40 Resp 17 02/09/21 08:40 BP 139/77 02/09/21 08:40 Pulse Ox 94 02/09/21 08:40 Laboratory Results - last 24 hr 02/04/21 14:30 Clozapine 937 H Clozapine &Norclozapine 1445 Norclozapine 508
[2021-02-09 16:00] VITALS: BP 140/82; PULSE 78; RESP 18; TEMP 36.3; O2SAT 96
--- NOTE | 2021-02-09 16:15 | PT.INTREAT ---
PT Notes Visit Reasons: Fractured Humerous 02/09/2021 SUBJECTIVE: Pt noting some discomfort in the right arm with movement despite having her sling on. OBJECTIVE: TRANSFERS Supine to sit: I Sit to supine: I Sit to stand: SBA Stand to sit: SBA GAIT Device: SPC Weight bearing: Full for LE's Assist: CGA Distance: 60'x2 Deviation: 1 sit rest break, 1 LOB with Min A to recover. ASSESSMENT: Tolerates PT well today. She did have a slight LOB with min A from this therapist to recover. She will benefit from continued gait training with SPC and initiation of balance activities. PLAN: Continue current POC. Treatment time: 25 minutes([id number]) Alaina Friedman, SCREEN PRINTING STENCIL PREPARER
[2021-02-09] MEDS: Nicotine 7 MG/24 HR PATCH TD (20:41)
[2021-02-09] MEDS: Simvastatin 20 MG TAB PO (21:55)
[2021-02-09] MEDS: Gabapentin 100 MG CAP 200 MG PO (21:55)
[2021-02-09] MEDS: Latanoprost 0.005% 2.5 ML BTL OP (21:55)
[2021-02-09] MEDS: Melatonin 3 MG TAB PO (21:57)
[2021-02-09] MEDS: Citalopram 10 MG TAB PO (21:57)
[2021-02-09 23:43] VITALS: BP 96/59; PULSE 77; RESP 17; TEMP 37.3; O2SAT 95
[2021-02-10 00:02] VITALS: BP 99/62; TEMP 36
[2021-02-10] MEDS: Heparin 5,000 UNITS/ML VIAL 5000 UNITS SC (06:14)
--- NOTE | 2021-02-10 08:42 | PDOC.CMPRO ---
- If Service Date Differs Date of service: 02/10/21 Time of Service: 08:42 Care Management Progress Note S/O:Janel was sitting up in bed when CM met with her. A: Janel is a 65 year old woman admitted on 01/29/21 with a fractured humerus P:Janel will not be able to return to [place] where she lives at this time due to staffing issues. Referrals were sent to [facility] and to [facility] with Janel's permission. A bed offer was received and then rescinded for [facility] ; no word from [facility]. CM will continue to support Janel and assess for discharge planning needs.
[2021-02-10 08:47] LABS: Abs Immature Grans 0.04 10^3/uL (0.0-0.06); Absolute Basophil Count 0.05 10^3/uL (0.0-0.2); Absolute Eosinophil Count 0.29 10^3/uL (0.0-0.7); Absolute Lymphocyte Count 1.28 10^3/uL (1.2-3.4); Absolute Neutrophil Count 6.95 10^3/uL (1.2-6.7); Basophils % 0.5; Eosinophils % 3.2; HCT 30.5 % (36.0-46.0); HGB 9.4 g/dL (11.2-15.7); Immature Grans % 0.4; Lymphocytes % 14.1; MCH 30.4 pg (27.0-33.0); MCHC 30.8 % (32.0-36.0); MCV 98.7 fL (80-95); MPV 9.4 fL (8.0-11.0); Monocytes % 5.5; Neutrophils % 76.3; Nucleated RBC 0 %; Platelet Count 315 10^3/uL (130-400); RBC 3.09 10^6/uL (3.93-5.22); RDW 16.9 % (11.7-14.6); RDW-SD 58.8 fL; WBC 9.11 10^3/uL (4.4-10.8)
[2021-02-10] MEDS: Insulin Aspart 300 UNITS/3 ML PEN SC ×2 (08:48→12:01)
[2021-02-10] MEDS: Timolol 0.5% 5 ML BTL OP (08:48)
[2021-02-10] MEDS: Brimonidine 0.15% 5 ML BTL OP (08:48)
[2021-02-10] MEDS: LORazepam 0.5 MG TAB PO (08:49)
[2021-02-10 08:50] VITALS: BP 122/62; PULSE 89; RESP 16; TEMP 36.8; O2SAT 97
[2021-02-10] MEDS: Cyanocobalamin 500 MCG TAB 1000 MCG PO (08:50)
[2021-02-10] MEDS: Aspirin 81 MG CHEW PO (08:50)
[2021-02-10] MEDS: guaiFENesin 600 MG TABCR PO (08:50)
[2021-02-10] MEDS: amLODIPine 2.5 MG TAB PO (08:50)
[2021-02-10] MEDS: Normal Saline Flush 10 ML SYR IVP (08:50)
[2021-02-10] MEDS: Ferrous Sulfate 325 MG TAB PO (08:50)
[2021-02-10] MEDS: Insulin Glargine 300 UNITS/3 ML PEN SC (09:00)
[2021-02-10] MEDS: Polyethylene Glycol 3350 17 GM PACKET PO (09:21)
[2021-02-10 10:37] LABS: Source Nasal/Nares
[2021-02-10 11:32] LABS: COVID-19 PCR Negative (Negative)
[2021-02-10] MEDS: Lidocaine 5% Patch 1 PATCH TP (12:01)
--- NOTE | 2021-02-10 12:32 | DSE_ITS ---
Date of service: 02/10/21 Time of Service: 12:32 DS: Diagnosis Discharge Diagnosis (1) Withdrawal syndrome: Start date: 02/10/21 Start time: 12:33 Status: Resolved Asessment and Plan: No symtpoms or reactions since she was increased to her am dose. She was initially having symptoms when taken off am dose and decreased to 100 at pm with dystonia and tardive dyskinesa. However on Sunday she received bendaryl and ativan which took her symptoms away. She was kept on these meds and weaned down over the weekend on Sunday she started to have jerking again so ativan low dose was added and she was placed back on her am dose of clozapril. Since she has not had any issues. She is doing well no hallucinations or problems with jerking or tremors. therefore she can be discharged to H/R. (2) Kidney failure: Start date: 02/10/21 Start time: 12:39 Status: Chronic Asessment and Plan: She is at baseline (3) Closed fracture of proximal end of right humerus: Start date: 02/10/21 Start time: 12:40 Status: Acute Asessment and Plan: working with PT/OT continue at H/R pain management with tylenol 3. she was on tramadol which can worsen serotonin syndrome and may have been causing some of her issues. She is doing well with tylenol 3. Will continue orthopedic consulted and evaluated with the following recommendations: Recommend regular sling for comfort about 4-6 weeks when ambulatory. Sling should be removed when resting in chair or bed. May elevate forearm on pillow. Light use right upper extremity for essential ADLs okay. Encourage daily gentle passive range of motion about the shoulder and active range of motion about hand and elbow to prevent stiffness. Follow-up at [facility] orthopedics as already arranged in 1-[address] Pérez or an orthopedic physician land surveyor assistant (4) Diabetes mellitus: Start date: 02/10/21 Start time: 12:41 Status: Chronic Asessment and Plan: She will continue metformin and Carb controlled diet (5) Paranoid schizophrenia: Start date: 02/10/21 Start time: 12:42 Status: Acute Asessment and Plan: At baseline. Doing well. as above discussed with Dr. Brewer Discharge Plan Disposition Patient Disposition: SNF ([facility]) [facility] Condition: Stable Discharge Details Reason For Visit: Fractured Humerous Admit Date/Time: 01/29/21 16:49 Admit Provider: Romero Poon Attending Provider: Romero Poon Primary Care Provider: Tosin Lundberg Hospital Course Hospital Course: this is a 65 year old female who lives in assisted living facility who had a mechanical fall down a flight of stairs, she was evaluated in the ED and was found to have a fractured humerus. she was placed in a sling and discharged back to the facility ([facility]) but has been unable to manage with her sling and walker. she was reportedly altered but now at baseline. ED evaluation was unremarkable. it is thought her symptoms are post concussive and there was concern about her safely being able to be discharged back and manage walker with arm in a sling. case management was consulted and referral placed to [facility]. While inpatient clozapril level sent and it was elevated. She was tapered down on a lower dose. This caused her to have dystonia, tardive dyskinesa and hallucination on Sunday diagonsed by Dr. Membreno by telehealth. On sunday she was given bendadryl and ativan due to the jerking and lip smacking. mentation was clear and all symptoms resolved by Sunday. She was placed back on am dosing of clozapril and has been doing well since. Tramadol was dcd due to possible increase in related symptoms. She was seen by ortho shee above for directions. She is to f/u in couple weeks. COVID negative. Tylenol 3 have been effective for pain and renal function has returned to baseline, metform restarted. She being discharged to H/R. She denies CP, sOB, N/V/D. Home Meds and New Rx's Prescriptions: New clozapine 100 mg Tablet 150 mg PO HS Qty: 60 RF: 0 acetaminophen-codeine 300-30 mg Tablet 1 tab PO Q4H PRN PRNQty: 20 RF: 0 Continued aspirin 81 mg tablet 81 mg PO DAILY RF: 0 alendronate 70 mg tablet 70 mg PO QWEEK RF: 0 clonazepam 0.5 mg tablet 0.5 mg PO BID RF: 0 Combigan 0.2-0.5 % drops 1 drp ophthalmic (eye) BID RF: 0 calcium carbonate-vitamin D3 600 mg(1,500mg) -400 unit capsule 1 cap PO BID RF: 0 ferrous sulfate 325 mg (65 mg iron) tablet,delayed release (DR/EC) 325 mg PO TID RF: 0 gabapentin 100 mg capsule 200 mg PO HS Qty: 180 RF: 3 simvastatin 20 mg Tablet 20 mg PO HS RF: 0 citalopram 20 mg Tablet 20 mg PO HS RF: 0 bisacodyl [Dulcolax (bisacodyl)] 5 mg tablet,delayed release (DR/EC) 10 mg PO .Q72H prn Qty: 7 RF: 0 olanzapine 2.5 mg Tablet 2.5 mg PO Q8H PRNRF: 0 gabapentin 100 mg Capsule 100 mg PO DAILY PRN (Reason: Headache) RF: 0 cholecalciferol (vitamin D3) [Vitamin D3] 25 mcg (1,000 unit) capsule 1,000 mcg PO DAILY RF: 0 cyclobenzaprine 5 mg Tablet 5 mg PO DAILY PRN (Reason: Back Pain) RF: 0 metformin 750 mg tablet extended release 24 hr 750 mg PO BID RF: 0 clozapine 25 mg tablet,disintegrating 25 mg PO QAM RF: 0 acetylcysteine [NAC] 600 mg capsule 1,200 mg PO BID RF: 0 cyanocobalamin (vitamin B-12) 1,000 mcg tablet 1,000 mcg PO DAILY RF: 0 nicotine (polacrilex) 2 mg gum 2 mg PO Q1H RF: 0 docusate sodium 100 mg capsule 100 mg PO QHS PRNRF: 0 latanoprost 0.005 % Drops 1 drp ophthalmic (eye) HS RF: 0 nicotine [Nicoderm CQ] 7 mg/24 hr Patch 24 Hour 7 mg transdermal Q24H PRNRF: 0 polyethylene glycol 3350 [Miralax] 17 gram/dose Powder 17 g PO DAILY RF: 0 melatonin 3 mg Tablet 3 mg PO HS RF: 0 nicotine (polacrilex) 2 mg Lozenge 2 mg buccal PRN PRNRF: 0 Discontinued clozapine 100 mg tablet 200 mg PO QHS RF: 0 Discharge Instructions Instructions: Extrapyramidal Symptoms (DC), Proximal Humerus Fracture (DC) Additional Instructions: Ice arm as needed 4 times a day for comfort Recommend regular sling for comfort about 4-6 weeks when ambulatory. Sling should be removed when resting in chair or bed. May elevate forearm on pillow. Light use right upper extremity for essential ADLs okay. Encourage daily gentle passive range of motion about the shoulder and active range of motion about hand and elbow to prevent stiffness. Referrals: Jacques Pérez MD [ [facility] STAFF PHYSICIAN] - 03/29/21 8:45 am Activity:: Activity as Tolerated Equipment/Supplies:: No Equipment Needed Diet:: As Tolerated Discharge Orders Discharge Orders: Discharge Order (Routine); Ordered 02/10/21 Ordered By: Cate Mcfarlane DS: Summary Time Spent with Patient providing and/or coordinating discharge services: Less than 30 minutes Status at Discharge Functional status at discharge: wheelchair bound Overall status at discharge: patient is progressing back to baseline Mental Status: mental status grossly normal Speech and Movement: speech and movement normal Mood: congruent mood Affect: blunted and other Exam Narrative Exam Narrative: General: obese Middle-aged female, AAOx3, lying in bed, no jerking or ticks. HEENT: EOMI, MMM Heart: RRR, n Lungs: CTAB Abdomen: soft, nontender, nondistended Extremities: no edema BLE's, Left arm in sling, CMST+, multiple colors or bruising Psych Mental Status: mental status grossly normal Speech and Movement: speech and movement normal Mood: congruent mood Affect: blunted and other DS: Data Vitals/I&O Vitals and I&O: Vital Signs Temperature 36.8 C 02/10/21 08:50 Temperature Source Tympanic 02/10/21 08:50 Pulse 89 02/10/21 08:50 Pulse Rhythm Regular 02/10/21 09:00 Pulse 82 01/28/21 16:01 Respiratory Rate 16 02/10/21 08:50 Respiratory Effort Non-Labored 02/10/21 09:00 Respiratory Depth Normal 02/10/21 09:00 Respiratory Pattern Normal 02/10/21 09:00 Blood Pressure 122/62 02/10/21 08:50 Blood Pressure Mean 39 01/28/21 16:00 Blood Pressure Position Sitting 01/28/21 11:18 Pulse Oximetry 97 02/10/21 08:50 Oxygen Delivery Method Room Air 02/10/21 08:50 Oxygen Flow Rate 0 02/10/21 08:50 Pain Level 9 02/09/21 23:43 Comment 02/10/21 00:02 Intake & Output 02/09/21 02/10/21 02/10/21 23:59 11:59 23:59 Intake Total 840 / 940 100 / 100 Output Total 400 / 1500 150 / 150 Balance 440 / -560 -50 / -50 Intake: IV 100 / 100 Oral 840 / 840 Output: Urine 400 / 1500 150 / 150 Other: Urine Color Yellow Yellow Urine Appearance Clear Clear Urine Odor Strong Comment Patient had scant BM, hard to observe color or odor due to BM Stool Size Moderate Stool Characteristics Soft Formed Black Voiding Methods Bedside Commode Bedside Commode Data Completed and Pending Completed studies during hospitalization [Text1]: Exam(s) XR SHOULDER RT COMPLETE 2+V EXAM: XR SHOULDER RT COMPLETE 2+V CLINICAL HISTORY: Follow up Prox Hum Fx. TECHNIQUE: 2D digital imaging was performed. COMPARISON: CR,XR XR SHOULDER RT COMPLETE 2+V from 01/27/2021 FINDINGS: Again noted is a previously described fracture the right humeral diaphysis-neck. There is no dislocation of glenohumeral joint but on the axial image there is offset the fracture fragments more so than previous. Unfortunately the prior study did not have an axial image for accurate comparison. Labs on day of discharge: Labs from last 24 hours 02/10/21 02/10/21 10:30 08:30 WBC 9.11 RBC 3.09 L Hgb 9.4 L Hct 30.5 L MCV 98.7 H MCH 30.4 MCHC 30.8 L RDW 16.9 H Plt Count 315 MPV 9.4 Immature Gran % 0.4 Neutrophils % 76.3 Lymphocytes % 14.1 Monocytes % 5.5 Eosinophils % 3.2 Basophils % 0.5 Nucleated RBC % 0 Absolute Neutrophils 6.95 H Absolute Lymphocytes 1.28 Absolute Monocytes 0.50 Absolute Eosinophils 0.29 Absolute Basophils 0.05 COVID-19 Source Nasal/Nares SARS-CoV-2 (PCR) Negative [facility] Medical History Ankle pain, left Auditory hallucinations Back pain Calcium kidney stone Chronic constipation COPD (chronic obstructive pulmonary disease) Depressive disorder Diabetes mellitus DNI (do not intubate) DNR (do not resuscitate) Falls Fatigue Fracture of orbital floor, left side, sequela GERD (gastroesophageal reflux disease) Glaucoma Headache Hip pain, bilateral Hyperlipidemia Hypertension Insomnia Intracranial aneurysm Knee pain, bilateral Low back pain Lumbar back pain Migraine headache with aura Migraine headache without aura Osteoarthritis Overweight Paranoid schizophrenia POLST (Physician Orders for Life-Sustaining Treatment) Polyarthralgia Tobacco use disorder Toe infection Umbilical hernia without mention of obstruction or gangrene Urinary frequency Vitamin D deficiency Surgical History H/O: hysterectomy History of bilateral tubal ligation Status post coil embolization of cerebral aneurysm Family History Father Colon cancer Renal cancer Sister Breast cancer Mother Abdominal aortic aneurysm Brother Psychiatric illness Social History Smoking/Tobacco Use Status: Current every day Tobacco Type: cigarettes Smoking risk assessment performed?: Yes Alcohol Intake: former Drug use: Current Sobriety Substance use type: does not use Do you feel safe at home: Yes Do you feel safe in your relationship?: Yes Additional Social history: unable to assess rogerio
--- NOTE | 2021-02-10 21:30 | CMDISCH_ITS ---
- If Service Date Differs Date of service: 02/10/21 Time of Service: 11:00 LACE Index Scoring Tool - Questions: Length of Stay (in days): 7 - 13 Acuity (Admit via E.D.?): Yes Comorbidities: Diabetes w/o Complication, Chronic Pulmonary Disease ( ) E.D. Visits: 4 - Answers: Total Score: 15 Risk of Readmission: High Risk Care Management Discharge Reason for Hospitalization: Closed fracture right humerus Discharge Plan: Janel will be transferred to [facility] for continued work with PT before returning to [place] where she resides. She will follow up with their facility providers and plan of care. Janel will transport via wheelchair van from [facility]. Patient/Family Education Needs: as determined by [facility] at time of discharge.
--- NOTE | 2021-02-11 17:33 | PT.INDS ---
Date of service: 02/11/21 Time of Service: 17:34 PT Notes Visit Reasons: Fractured Humerous Physical Therapy Inpatient Discharge Summary Date: 02/11/21 Dates of service: 01/29/2021 through 02/10/2021 This is a clinical summary of care provided for the duration of dates listed above. No charge was made in the completion of this documentation. 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 Patient has been doing farely well per notes prior to her fall but did fall down and injured her right shoulder apparently fracturing her right humerus. As she was ambulating in the ED it was determined that her safety would be in question. She utilizes a walker at baseline and without use of the right side this was too difficult for her to negotiate. PMHX: Medical History Ankle pain, left Auditory hallucinations Back pain Calcium kidney stone Chronic constipation COPD (chronic obstructive pulmonary disease) Depressive disorder Diabetes mellitus DNI (do not intubate) DNR (do not resuscitate) Falls Fatigue Fracture of orbital floor, left side, sequela GERD (gastroesophageal reflux disease) Glaucoma Headache Hip pain, bilateral Hyperlipidemia Hypertension Insomnia Intracranial aneurysm Knee pain, bilateral Low back pain Lumbar back pain Migraine headache with aura Migraine headache without aura Osteoarthritis Overweight Paranoid schizophrenia POLST (Physician Orders for Life-Sustaining Treatment) Polyarthralgia Tobacco use disorder Toe infection Umbilical hernia without mention of obstruction or gangrene Urinary frequency Vitamin D deficiency Surgical History H/O: hysterectomy History of bilateral tubal ligation Status post coil embolization of cerebral aneurysm Social History/Home Situation: Current resident of [place] Equipment Owned/DME: [facility] Subjective: NT. See most recent ELIGIBILITY COUNSELOR notes. Objective: NT. See most recent ELIGIBILITY COUNSELOR notes. Mental Status: NT. See most recent ELIGIBILITY COUNSELOR notes. Pain: NT. See most recent ELIGIBILITY COUNSELOR notes. ROM: Right Upper Extremity: Passive range of motion for shoulder up to 30 degrees. Passive range of motion for shoulder flexion up to 80 degrees. Passive range of motion for elbow flexion 4. Passive range of motion for forearm pronation supination full. Wrist AROM within functional limits actively. Left Upper Extremity: Motion through the shoulder flexes to 120 degrees, elbow motion WNL, wrist motion WNL Right Lower Extremity: WFL Left Lower Extremity: WFL Strength: Right Upper Extremity: Prevention Coordinator strength fair Left Upper Extremity: Shoulder flexion 4/5, biceps 4+/5, triceps 4+/5, gripper attacher strength good Right Lower Extremity: Globally 4+/5 Left Lower Extremity: Globally 4+/5 Bed Mobility/Transfers: Supine to sit dependent Sit to supine independent Sit to stand standby assist Stand to sit standby assist Bed to chair standby assist Chair to bed standby assist Gait: Able to tolerate up to 60 feet x 2 using single-point cane with front wheel walker requiring contact-guard assist due to persistent dyskinesias and impaired cognition. Balance: Static Sitting: Normal Dynamic Sitting: Good Static Standing: Fair Dynamic Standing: Fair ASSESSMENT: Patient has demonstrated significant significant functional improvement during this episode of care however will continue to require assisted facility placement in order to regain highest functional mobility level using the front wheeled walker prior to returning to previous home setting. Goals: Goals X1 week 1. Supine-Sit Min Assist MET 2. Sit-Supine MIn Assist MET 3. Sit-Stand Min Assist MET 4. Stand-Sit Min Assist MET 5. Bed-Chair Min Assist MET 6. Gait With Min Assist and use of williams walker up to 50 feet MET DISCHARGE RECOMMENDATIONS: Patient will benefit from assisted facility placement for continued skilled physical therapy services in order to progress mobility level, strength, and balance in preparation for a safe discharge to home. TREATMENT CODE/TIME: WA Thank you for the opportunity to participate in the care of this patient. Rina Washington PT, DPT, CLT [facility] [place], [place]
--- NOTE | 2021-02-14 07:47 | OTDS_ITS ---
Date of service: 02/14/21 Time of Service: 07:48 Occupational Therapy Notes Occupational Therapy Inpatient Discharge Summary Date: 02/14/21 for 02/11/21 Dates of Service: 02/02/21-02/10/21 Referring Doctor:Brinda Hill MD OT Orders: Non Urgent Precautions: Fall, standard, Broken (R) UE, DNR/DNI *This document serves as a summary of care, no skilled OT services provided for this documentation* PATIENT PROFILE/ADMITTING DIAGNOSIS: Pt is a 65 year old female who was admitted through the ED for the following dx, Hypomagnesemia, encephalopathy, HIPOLITO, hypercalcemia, AMS, closed fx of (R) humerus, contusion (R) hip, Fall. Past Medical History: Medical History Ankle pain, left Auditory hallucinations Back pain Calcium kidney stone Chronic constipation COPD (chronic obstructive pulmonary disease) Depressive disorder Diabetes mellitus DNI (do not intubate) DNR (do not resuscitate) Falls Fatigue Fracture of orbital floor, left side, sequela GERD (gastroesophageal reflux disease) Glaucoma Headache Hip pain, bilateral Hyperlipidemia Hypertension Insomnia Intracranial aneurysm Knee pain, bilateral Low back pain Lumbar back pain Migraine headache with aura Migraine headache without aura Osteoarthritis Overweight Paranoid schizophrenia POLST (Physician Orders for Life-Sustaining Treatment) Polyarthralgia Tobacco use disorder Toe infection Umbilical hernia without mention of obstruction or gangrene Urinary frequency Vitamin D deficiency Surgical History H/O: hysterectomy History of bilateral tubal ligation Status post coil embolization of cerebral aneurysm SUBJECTIVE: NT OBJECTIVE: *Based on multiple sessions and performance- no skilled OT services performed on todays date. ROM: RUE NT L UE AROM WFL STRENGTH: RUE NT LUE 2+/5 throughout FUNCTIONAL MOBILITY/ADLS: Rolling L/R: (I) Supine-sit: (I) Sit-stand: CGA Stand-sit: CGA Bed-Chair: CGA BATHING: Sitting in chair with max (A) Set up/clean up Upper Body: (I) face, max (A) (R) UE, Mod (A) (L) UE Lower Body: max (A) DRESSING: sitting in chair Upper Extremity: mod (A) [facility] gown Lower Extremity: max (A) TOILETING: Device: commode Assist: mod (A) toileting hygiene ASSESSMENT: Patient is a 65-year-old female referred to occupational therapy services with diagnosis of Hypomagnesemia, encephalopathy, HIPOLITO, hypercalcemia, AMS, closed fx of (R) humerus, contusion (R) hip, Fall. Pt made increase gains in her ADLs, she remained limited in her pain and her decreased ROM of her arm. She is able to follow instructions and perform her ADLs with her (L) UE. She requires (A) With her (R) UE for dressing and bathing. Pt was discharged and transitioned to SNF and medically cleared per MD. GOALS 1. Grooming- sitting in chair (I) brushing her teeth- met 2. Dressing- sitting in chair (I) UE and mod (I) LE- not met 3. Bathing- sitting in chair min (A) UE and (I) LE- met with (L) UE 4. Toileting on toilet (I)- partially met 5. Eating (I)- met PLAN OF CARE/TREATMENT PLAN: Discharge from skilled OT services. Pt was discharged to SNF DISCHARGE RECOMMENDATIONS Based on pts current level of function OT recommends that pt would benefit from returning home with OT va. SNF if pain persists and limits her functional (I). TREATMENT TIME/MINUTES/CODES N/A Yuliya Parker OTR/L [facility]
== END 2021-02-10 13:08 | disposition skilled nursing facility (03) | DRG 562 ==
LOC: ER 15:34 → MS 16:45
PROVIDERS: Internal Medicine; Nurse Practitioner Acute Care; Nurse Practitioner Family; Admitting Provider Family Medicine; Emergency Provider Physician Assistant; PCP Nurse Practitioner Family; Visit Provider Family Medicine
DX: S42.291A Other displaced fracture of upper end of right humerus, initial encounter for closed fracture (principal); N17.0 Acute kidney failure with tubular necrosis; F20.0 Paranoid schizophrenia; G93.40 Encephalopathy, unspecified; F19.939 Other psychoactive substance use, unspecified with withdrawal, unspecified; G24.8 Other dystonia; Z20.822 Contact with and (suspected) exposure to COVID-19; G89.29 Other chronic pain; M54.9 Dorsalgia, unspecified; J44.9 Chronic obstructive pulmonary disease, unspecified; Z66 Do not resuscitate; K21.9 Gastro-esophageal reflux disease without esophagitis; G43.909 Migraine, unspecified, not intractable, without status migrainosus; F17.210 Nicotine dependence, cigarettes, uncomplicated; W10.8XXA Fall (on) (from) other stairs and steps, initial encounter; Y92.199 Unspecified place in other specified residential institution as the place of occurrence of the external cause; N18.9 Chronic kidney disease, unspecified; I12.9 Hypertensive chronic kidney disease with stage 1 through stage 4 chronic kidney disease, or unspecified chronic kidney disease; E11.22 Type 2 diabetes mellitus with diabetic chronic kidney disease; K59.09 Other constipation; F32.9 Major depressive disorder, single episode, unspecified; H40.9 Unspecified glaucoma; E78.5 Hyperlipidemia, unspecified; M54.5 Low back pain; E55.9 Vitamin D deficiency, unspecified; E83.52 Hypercalcemia; E86.0 Dehydration; Z79.84 Long term (current) use of oral hypoglycemic drugs; I95.9 Hypotension, unspecified; E83.42 Hypomagnesemia
CPT/HCPCS: 36410; 36415; 36416; 76770; 80048; 80053; 80307; 82306; 82550; 82962; 84145; 84156; 84166; 85027; 86335; 87040; 87635; 96360; 96361; 97110; 97163; 97166; 97530; 97535; 99221; 99291; 70450; 71045; 73030; 80159; 80320; 81003; 81015; 83605; 83735; 84165; 84443; 84484; 84550; 85025; 85610; 86140; 87086; 99220; 99226; 99231; 99232; 99233; 99238; J1200; J1644; J1940; J2060; J3490; J7608

== ENCOUNTER 2021-03-16 22:16 | Outpatient (REF) | payer MEDICARE, MEDICAID, SELFPAY ==
[2021-03-16 20:40] LABS: Abs Immature Grans 0.03 10^3/uL (0.0-0.06); Absolute Basophil Count 0.05 10^3/uL (0.0-0.2); Absolute Eosinophil Count 0.29 10^3/uL (0.0-0.7); Absolute Lymphocyte Count 1.38 10^3/uL (1.2-3.4); Absolute Monocyte Count 0.46 10^3/uL (0.1-0.8); Absolute Neutrophil Count 6.42 10^3/uL (1.2-6.7); Basophils % 0.6; Eosinophils % 3.4; HCT 34.5 % (36.0-46.0); HGB 10.6 g/dL (11.2-15.7); Immature Grans % 0.3; MCH 30.2 pg (27.0-33.0); MCHC 30.7 % (32.0-36.0); MCV 98.3 fL (80-95); MPV 10.8 fL (8.0-11.0); Monocytes % 5.3; Neutrophils % 74.4; Nucleated RBC 0 %; Platelet Count 293 10^3/uL (130-400); RBC 3.51 10^6/uL (3.93-5.22); RDW 13.2 % (11.7-14.6); RDW-SD 47.3 fL; WBC 8.63 10^3/uL (4.4-10.8)
--- OUTSIDE RECORDS SUMMARY | 2021-03-16 22:21 | XMS_ITS ---
:1955 Author Organization [facility] Address [address] [place] [address] Care Team Providers Name Role Phone Deloresman Unavailable Unavailable PROBLEMS Type Condition ICD9-CM Code [id number] Code Onset Condition SNO MED Code Dates Status Problem Hyperkeratosis L85.9 Active 23960 000 Problem Diabetes E11.9 Active 717297528 Problem Onychomycosis B35.1 Active 719493 008 ALLERGIES Substance Reaction Event Type Date [...] Activ e ENCOUNTERS Encounter Location Date Diagnosis [facility] Jul, Hyper keratosis L85.9 ; [place] [address] Onychomycos is B35.1 ; Foot pain, bilateral M79.671 and Diabetes E11.9 [facility] Feb, Hyper keratosis L85.9 ; [place] [address] Onychomycos is B35.1 and Foot pain, bilateral M79.671 [facility] Sep, Hyper keratosis L85.9 ; [place] [address] Onychomycos is B35.1 and Foot pain, bilateral M79.671 [facility] Jun, Hyper keratosis L85.9 ; [place] [address] Onychomycos is B35.1 ; Foot pain, bilateral M79.671 and Xerosis of skin L85.3 [facility] [address] [facility] [address] Mar, 2015 Hyper keratosis L85.9 ; [place] [address] Onychomycos is B35.1 and Foot pain, bilateral M79.671 [facility] [address] [facility], [address] Feb, [place] [address] IMMUNIZATIONS No Known Immunizations SOCIAL HISTORY Qualifiers [...] topically 1 katlyn 12h Activ e TOPICAL 493153 2 times a day units/g glipiZIDE 10 [...] on it. JL, Inputting information Insurance Providers [facility] Member Patient Patient Patient Patient Patient Subscriber Subscriber Subscriber Group Insurance Plan Plan Plan Plan ID Relationship Address Phone Name Date of ID Name Date of No Type Insurance Insurance Insurance Coverage to Subscriber Address Phone Name Dates SELF PAY [address] STREET SELF PAY self NISA [id number] [place] [address] INSURANCE S-MEDICAID EDS [id number] S-MEDICAID self NISA [id number] [place] [facility] [id number] MEDICARE 3000 GOFFS MEDICARE self NISA [id number] [facility] [id number] MEDICAID EDS MEDICAID self NISA [id number] [place] [facility] [id number] MEDICAID EDS MEDICAID self NISA [id number] [place] [facility] [id number] MEDICAL (GENERAL) HISTORY Type Description Date Medical History Schizophrenia Surgical History Appendectomy Surgical History Tubal Ligation Surgical History Hysterectomy Surgical History Tibia fracture left leg Surgical History Broken Right Rib Surgical History Brain Surgery-aneurysm 2009 Surgical History Vein stripping bilateral Surgical History Cataract Bilateral Hospitalization History Childbirth X2
== END 2021-03-16 22:17 | disposition home or self-care (01) ==
LOC: NCHCN 22:16
PROVIDERS: PCP Nurse Practitioner Family; Visit Provider Family Medicine
DX: R68.89 Other general symptoms and signs (principal)
CPT/HCPCS: 85025

== ENCOUNTER 2021-03-18 17:16 | Outpatient (REF) | payer MEDICARE, MEDICAID, SELFPAY ==
[2021-03-18 19:42] LABS: Abs Immature Grans 0.05 10^3/uL (0.0-0.06); Absolute Basophil Count 0.07 10^3/uL (0.0-0.2); Absolute Lymphocyte Count 1.66 10^3/uL (1.2-3.4); Absolute Monocyte Count 0.73 10^3/uL (0.1-0.8); Absolute Neutrophil Count 11.74 10^3/uL (1.2-6.7); Basophils % 0.5; Eosinophils % 2.1; HCT 32.1 % (36.0-46.0); HGB 9.9 g/dL (11.2-15.7); Immature Grans % 0.3; Lymphocytes % 11.4; MCH 30.2 pg (27.0-33.0); MCHC 30.8 % (32.0-36.0); MCV 97.9 fL (80-95); MPV 10.8 fL (8.0-11.0); Neutrophils % 80.7; Nucleated RBC 0 %; Platelet Count 275 10^3/uL (130-400); RBC 3.28 10^6/uL (3.93-5.22); RDW 13.3 % (11.7-14.6); RDW-SD 47.8 fL; WBC 14.55 10^3/uL (4.4-10.8)
[2021-03-18 19:44] LABS: Absolute Eosinophil Count 0.31 10^3/uL (0.0-0.7)
[2021-03-18 20:06] LABS: Bilirubin Negative (Negative); Blood Small (Negative); Clarity Turbid (Clear); Glucose Negative (Negative); Ketones Negative (Negative); Leukocyte Esterase Large (Negative); Nitrite Negative (Negative); Specific Gravity 1.025 (1.005-1.025); Urobilinogen 0.2 EU/dL (Up TO 0.2); pH 8.5 (5-8)
[2021-03-18 20:07] LABS: ALT 11 U/L (14-59); AST 13 U/L (15-37); Albumin 2.9 g/dL (3.4-5.0); Alkaline Phosphatase 111 U/L (46-116); Anion Gap 6.4 mmol/L (3-11); BUN 21 mg/dL (7-18); Bilirubin, Total 0.3 mg/dL (0.2-1.0); CO2 32.6 mmol/L (21.0-32.0); CREATININE 1.9 mg/dL (0.55-1.02); Calcium 10.7 mg/dL (8.5-10.1); Chloride 106 mmol/L (98-107); Estimated GFR 26.37 (mL/min/1.73m2); Glucose 149 mg/dL (74-106); Potassium 4.1 mmol/L (3.5-5.1); Sodium 145 mmol/L (136-145); Total Protein 6.6 g/dL (6.4-8.2)
[2021-03-18 20:45] LABS: C & S Indicated? C&S Done As Ordered; WBC >50 HPF (0-5)
== END 2021-03-18 17:17 | disposition home or self-care (01) ==
LOC: LBN 17:16
PROVIDERS: PCP Nurse Practitioner Family; Visit Provider Nurse Practitioner Family
DX: R82.79 Other abnormal findings on microbiological examination of urine (principal); R68.89 Other general symptoms and signs
CPT/HCPCS: 80053; 87077; 81003; 81015; 85025; 87086; 87186

== ENCOUNTER 2021-03-19 10:23 | Emergency (ER) | payer MEDICARE, MEDICAID, SELFPAY ==
[2021-03-19] VITALS (25 sets, daily range): BP systolic 117–151; BP diastolic 53–67; PULSE 52–73; RESP 11–17; TEMP 36.7–36.9; O2SAT 97–100
--- NOTE | 2021-03-19 10:33 | ED.GENADUL_ITS ---
Discharge Plan Disposition Patient Disposition: HOME Condition: Stable Discharge Details Clinical Impression: UTI (urinary tract infection) Primary Care Provider: Tosin Lundberg ED Provider: Asmita Pelaez Home Meds and New Rx's Prescriptions: New levofloxacin 750 mg tablet 750 mg PO DAILY 5 Days Qty: 5 RF: 0 Continued aspirin 81 mg tablet 81 mg PO DAILY RF: 0 alendronate 70 mg tablet 70 mg PO QWEEK RF: 0 clonazepam 0.5 mg tablet 0.5 mg PO BID RF: 0 Combigan 0.2-0.5 % drops 1 drp ophthalmic (eye) BID RF: 0 calcium carbonate-vitamin D3 600 mg(1,500mg) -400 unit capsule 1 cap PO BID RF: 0 ferrous sulfate 325 mg (65 mg iron) tablet,delayed release (DR/EC) 325 mg PO TID RF: 0 gabapentin 100 mg capsule 200 mg PO HS Qty: 180 RF: 3 simvastatin 20 mg Tablet 20 mg PO HS RF: 0 citalopram 20 mg Tablet 20 mg PO HS RF: 0 bisacodyl [Dulcolax (bisacodyl)] 5 mg tablet,delayed release (DR/EC) 10 mg PO .Q72H prn Qty: 7 RF: 0 olanzapine 2.5 mg Tablet 2.5 mg PO Q8H PRNRF: 0 gabapentin 100 mg Capsule 100 mg PO DAILY PRN (Reason: Headache) RF: 0 cholecalciferol (vitamin D3) [Vitamin D3] 25 mcg (1,000 unit) capsule 1,000 mcg PO DAILY RF: 0 cyclobenzaprine 5 mg Tablet 5 mg PO DAILY PRN (Reason: Back Pain) RF: 0 metformin 750 mg tablet extended release 24 hr 750 mg PO BID RF: 0 clozapine 25 mg tablet,disintegrating 25 mg PO QAM RF: 0 acetylcysteine [NAC] 600 mg capsule 1,200 mg PO BID RF: 0 cyanocobalamin (vitamin B-12) 1,000 mcg tablet 1,000 mcg PO DAILY RF: 0 nicotine (polacrilex) 2 mg gum 2 mg PO Q1H RF: 0 docusate sodium 100 mg capsule 100 mg PO QHS PRNRF: 0 latanoprost 0.005 % Drops 1 drp ophthalmic (eye) HS RF: 0 nicotine [Nicoderm CQ] 7 mg/24 hr Patch 24 Hour 7 mg transdermal Q24H PRNRF: 0 polyethylene glycol 3350 [Miralax] 17 gram/dose Powder 17 g PO DAILY RF: 0 melatonin 3 mg Tablet 3 mg PO HS RF: 0 nicotine (polacrilex) 2 mg Lozenge 2 mg buccal PRN PRNRF: 0 clozapine 100 mg Tablet 150 mg PO HS Qty: 60 RF: 0 acetaminophen-codeine 300-30 mg Tablet 1 tab PO Q4H PRN PRNQty: 20 RF: 0 Discharge Instructions Instructions: Urinary Tract Infection in Women (ED) Additional Instructions: Drink plenty of fluids and get plenty of rest. Take Tylenol as needed and directed for pain or fever. You were sent with a prescription for the antibiotic Levaquin. Take this as directed until finished. Follow-up with your primary care doctor in 1 week. Return to the emergency department with any worsening or new concerning symptoms. Discharge Data Discharge Physician: Asmita Pelaez Medical Decision Making 65-year-old female with a history of diabetes, COPD, GERD, schizophrenia, hypertension, hyperlipidemia, and depression presents from health and rehab for cloudy urine and decreased mentation today. Patient oriented x3 but does appear sleepy. She is arousable, answers questions and follows commands. Vitals within normal limits. No obvious evidence of obvious cellulitis on exam. Urine sample obtained through straight cath and appears cloudy. Screening labs, urinalysis, lactate and blood cultures obtained on arrival. IVF and IV tylenol ordered. Labs reviewed. White blood cell count elevated at 13.27. No bands. Lactate normal at 0.8. Creatinine 1.8, GFR 28, which is her baseline. Urinalysis notes findings consistent with UTI Review of previous records note that patient was treated for UTI and sepsis in August 2020 with Levaquin which she tolerated. Patient is on Celexa which in combination with fluoroquinolones can cause prolonged QT. EKG was obtained and QTc 426. Dose of IV Levaquin ordered. Patient awake and alert and eating custard sitting upright in bed. She appears comfortable and nontoxic. Will discharge back to the [facility] with a prescription for p.o. levaquin. Usual and customary return precautions given prior to discharge. Medical Records Medical records reviewed: Yes I reviewed the patient's medical records. Lab Data Lab results reviewed: Yes I reviewed the patient's lab results. Labs: 03/19/21 11:25 Blood Blood Culture - Pending 03/19/21 11:05 Urine - Reflex from Ua Urine Culture - Pending 03/19/21 10:45 Blood Blood Culture - Pending Laboratory Tests Range/Units 03/19/21 03/19/21 03/19/21 10:45 10:45 10:45 WBC (4.4-10.8) 10^3/uL 13.27 H RBC (3.93-5.22) 10^6/uL 3.37 L Hgb (11.2-15.7) g/dL 10.1 L Hct (36.0-46.0) % 32.9 L MCV (80-95) fL 97.6 H MCH (27.0-33.0) pg 30.0 MCHC (32.0-36.0) % 30.7 L RDW (11.7-14.6) % 13.4 Plt Count (130-400) 10^3/uL 292 MPV (8.0-11.0) fL 9.8 Immature Gran % 0.4 Neutrophils % 83.5 Lymphocytes % 6.9 Monocytes % 4.6 Eosinophils % 4.1 Basophils % 0.5 Nucleated RBC % % 0 Absolute Neutrophils (1.2-6.7) 10^3/uL 11.08 H Absolute Lymphocytes (1.2-3.4) 10^3/uL 0.92 L Absolute Monocytes (0.1-0.8) 10^3/uL 0.61 Absolute Eosinophils (0.0-0.7) 10^3/uL 0.54 Absolute Basophils (0.0-0.2) 10^3/uL 0.07 VBG Lactate (0.6-1.4) mmol/L 0.8 Sodium (136-145) mmol/L 145 Potassium (3.5-5.1) mmol/L 4.0 Chloride (98-107) mmol/L 104 Carbon Dioxide (21.0-32.0) mmol/L 37.2 H Anion Gap (3-11) mmol/L 3.8 BUN (7-18) mg/dL 23 H Creatinine (0.55-1.02) mg/dL 1.8 H Estimated GFR/1.73 m2 (mL/min/1.73m2) 28.07 Glucose (74-106) mg/dL 119 H Calcium (8.5-10.1) mg/dL 10.9 H Total Bilirubin (0.2-1.0) mg/dL 0.3 AST (15-37) U/L 14 L ALT (14-59) U/L 9 L Alkaline Phosphatase (46-116) U/L 111 Total Protein (6.4-8.2) g/dL 7.5 Albumin (3.4-5.0) g/dL 2.9 L Urine Color (Yellow) Urine Clarity (Clear) Urine pH (5-8) Ur Specific Catlin (1.005-1.025) Urine Protein (Negative) mg/dL Urine Ketones (Negative) mg/dL Urine Blood (Negative) Urine Nitrite (Negative) Urine Bilirubin (Negative) Urine Urobilinogen (Up TO 0.2) EU/dL Ur Leukocyte Esterase (Negative) Urine RBC Urine WBC (0-5) HPF Ur Epithelial Cells Urine Crystals Urine Bacteria (Negative) HPF Urine Mucus Ur Culture Indicated? Urine Glucose (Negative) mg/dL Range/Units 03/19/21 11:05 WBC (4.4-10.8) 10^3/uL RBC (3.93-5.22) 10^6/uL Hgb (11.2-15.7) g/dL Hct (36.0-46.0) % MCV (80-95) fL MCH (27.0-33.0) pg MCHC (32.0-36.0) % RDW (11.7-14.6) % Plt Count (130-400) 10^3/uL MPV (8.0-11.0) fL Immature Gran % Neutrophils % Lymphocytes % Monocytes % Eosinophils % Basophils % Nucleated RBC % % Absolute Neutrophils (1.2-6.7) 10^3/uL Absolute Lymphocytes (1.2-3.4) 10^3/uL Absolute Monocytes (0.1-0.8) 10^3/uL Absolute Eosinophils (0.0-0.7) 10^3/uL Absolute Basophils (0.0-0.2) 10^3/uL VBG Lactate (0.6-1.4) mmol/L Sodium (136-145) mmol/L Potassium (3.5-5.1) mmol/L Chloride (98-107) mmol/L Carbon Dioxide (21.0-32.0) mmol/L Anion Gap (3-11) mmol/L BUN (7-18) mg/dL Creatinine (0.55-1.02) mg/dL Estimated GFR/1.73 m2 (mL/min/1.73m2) Glucose (74-106) mg/dL Calcium (8.5-10.1) mg/dL Total Bilirubin (0.2-1.0) mg/dL AST (15-37) U/L ALT (14-59) U/L Alkaline Phosphatase (46-116) U/L Total Protein (6.4-8.2) g/dL Albumin (3.4-5.0) g/dL Urine Color (Yellow) Yellow Urine Clarity (Clear) Cloudy Urine pH (5-8) 7.0 Ur Specific Catlin (1.005-1.025) 1.020 Urine Protein (Negative) mg/dL 30 H Urine Ketones (Negative) mg/dL Negative Urine Blood (Negative) Negative Urine Nitrite (Negative) Positive H Urine Bilirubin (Negative) Negative Urine Urobilinogen (Up TO 0.2) EU/dL 0.2 Ur Leukocyte Esterase (Negative) Moderate H Urine RBC Not Applicable Urine WBC (0-5) HPF >50 H Ur Epithelial Cells Not Applicable Urine Crystals Not Applicable Urine Bacteria (Negative) HPF Many Urine Mucus Not Applicable Ur Culture Indicated? Yes Urine Glucose (Negative) mg/dL Negative HPI General Mode of arrival: ambulatory . Date/Time Provider Initiated Documentation: 03/19/21 10:30 . Limitations to Documentation: no limitations . Information obtained by: patient . HPI Narrative: Patient is a 65-year-old female with a history of diabetes, COPD, GERD, schizophrenia, hypertension, hyperlipidemia, and depression presents from the health and rehab for cloudy urine with decreased mentation from baseline today. She was sent here for evaluation and request for IV antibiotics per health and rehab provider. She states she uses a walker for ambulation as needed. She denies any fever, chest pain, shortness of breath, abdominal pain. Related Data Home Medications Medication Instructions Recorded Confirmed latanoprost 1 drp OPHTHALMIC (EYE) HS 12/17/18 03/19/21 aspirin 81 mg tablet 81 mg PO DAILY 07/14/19 03/19/21 clonazepam 0.5 mg tablet 0.5 mg PO BID tab 07/14/19 03/19/21 nicotine [Nicoderm CQ] 7 mg TRANSDERMAL Q24H PRN 08/28/19 03/19/21 polyethylene glycol 3350 [Miralax] 17 g PO DAILY 08/28/19 03/19/21 melatonin 3 mg PO HS 08/30/19 03/19/21 alendronate 70 mg tablet 70 mg PO QWEEK 06/08/20 03/19/21 citalopram 20 mg PO HS 08/07/20 03/19/21 simvastatin 20 mg PO HS 08/07/20 03/19/21 bisacodyl [Dulcolax (bisacodyl)] 10 mg PO .Q72H prn #7 tab 08/27/20 03/19/21 acetylcysteine [NAC] 1,200 mg PO BID 09/01/20 01/28/21 cholecalciferol (vitamin D3) 1,000 mcg PO DAILY 09/01/20 03/19/21 [Vitamin D3] clozapine 25 mg PO QAM 09/01/20 03/19/21 cyclobenzaprine 5 mg PO DAILY PRN 09/01/20 01/29/21 gabapentin 100 mg PO DAILY PRN 09/01/20 03/19/21 metformin 750 mg PO BID 09/01/20 03/19/21 olanzapine 2.5 mg PO Q8H PRN 09/01/20 03/19/21 brimonidine 0.2 %-timolol 0.5 % 1 drp OPHTHALMIC (EYE) BID 09/13/20 03/19/21 eye drops calcium carbonate-vitamin D3 600 1 cap PO BID 09/13/20 03/19/21 mg (1,500 mg)-400 unit capsule ferrous sulfate 325 mg (65 mg 325 mg PO TID 09/13/20 03/19/21 iron) tablet,delayed release cyanocobalamin (vitamin B-12) 1,000 mcg PO DAILY 01/27/21 03/19/21 docusate sodium 100 mg PO QHS PRN 01/27/21 03/19/21 nicotine (polacrilex) 2 mg PO Q1H 01/27/21 01/28/21 nicotine (polacrilex) 2 mg BUCCAL PRN PRN 01/29/21 01/29/21 gabapentin 100 mg capsule 200 mg PO HS #180 cap 01/31/21 03/19/21 acetaminophen-codeine 1 tab PO Q4H PRN PRN #20 tab 02/10/21 clozapine 150 mg PO HS #60 tab 02/10/21 03/19/21 levofloxacin 750 mg PO DAILY 5 Days #5 tab 03/19/21 Previous Rx's Medication Instructions Recorded bisacodyl [Dulcolax (bisacodyl)] 10 mg PO .Q72H prn #7 tab 08/27/20 gabapentin 100 mg capsule 200 mg PO HS #180 cap 01/31/21 acetaminophen-codeine 1 tab PO Q4H PRN PRN #20 tab 02/10/21 clozapine 150 mg PO HS #60 tab 02/10/21 levofloxacin 750 mg PO DAILY 5 Days #5 tab 03/19/21 Allergies Allergy/AdvReac Type Severity Reaction Status Date / Time fluphenazine enanthate AdvReac Severe almost Verified 03/19/21 11:16 [From Prolixin] last time they gave it to me fluphenazine HCl AdvReac Severe almost Verified 03/19/21 11:16 [From Prolixin] last time they gave it to me haloperidol [From Haldol] AdvReac Mild doesn't Verified 03/19/21 11:16 agree with me haloperidol lactate AdvReac Mild doesn't Verified 03/19/21 11:16 [From Haldol] agree with me chlorpromazine HCl AdvReac Unknown per pt Verified 03/19/21 11:16 [From Thorazine] [place] [facility] [place] AdvReac Unknown pt list Verified 03/19/21 11:16 [place] [facility] [place] AdvReac Unknown per pt Verified 03/19/21 11:16 list from [facility] [place] nicotine AdvReac Unknown per pt Verified 03/19/21 11:16 loist from [facility] [place] paliperidone [From Invega] AdvReac Unknown per pt Verified 03/19/21 11:16 list from [facility] [place] Penicillins AdvReac Unknown per pt Verified 03/19/21 11:16 list from [facility] [place] Sulfa (Sulfonamide AdvReac Unknown per pt Verified 03/19/21 11:16 Antibiotics) list from [facility] [place] General Stated Complaint: Urinary ALEX: 3 Review of Systems All systems reviewed & are unremarkable except as noted in HPI and below Constitutional Constitutional: Reports as per HPI, Denies chills and Denies fever(s) Eyes Eyes: Denies blurry vision ENT Ears, Nose, Mouth, and Throat: Denies dizziness, Denies sore throat and Denies throat swelling Cardiovascular Cardiovascular: Denies chest pain and Denies dyspnea Respiratory Respiratory: Denies cough and Denies dyspnea Gastrointestinal Gastrointestinal: Denies abdominal pain, Denies diarrhea and Denies vomiting Genitourinary Genitourinary: Denies hematuria and Denies dysuria Musculoskeletal Musculoskeletal: Denies back pain and Denies numbness Integumentary/Breasts Skin/Breast: Denies lesions and Denies rash Neurologic Neurologic: Denies dizziness, Denies localized weakness and Denies numbness Allergic/Immunologic Allergic/Immunologic: Denies throat swelling PFSH Medical History Ankle pain, left Auditory hallucinations Back pain Calcium kidney stone Chronic constipation COPD (chronic obstructive pulmonary disease) Depressive disorder Diabetes mellitus DNI (do not intubate) DNR (do not resuscitate) Falls Fatigue Fracture of orbital floor, left side, sequela GERD (gastroesophageal reflux disease) Glaucoma Headache Hip pain, bilateral Hyperlipidemia Hypertension Insomnia Intracranial aneurysm Knee pain, bilateral Low back pain Lumbar back pain Migraine headache with aura Migraine headache without aura Osteoarthritis Overweight Paranoid schizophrenia POLST (Physician Orders for Life-Sustaining Treatment) Polyarthralgia Tobacco use disorder Toe infection Umbilical hernia without mention of obstruction or gangrene Urinary frequency Vitamin D deficiency Surgical History H/O: hysterectomy History of bilateral tubal ligation Status post coil embolization of cerebral aneurysm Family History Father Colon cancer Renal cancer Sister Breast cancer Mother Abdominal aortic aneurysm Brother Psychiatric illness Social History Smoking/Tobacco Use Status: Current every day Tobacco Type: cigarettes Smoking risk assessment performed?: Yes Alcohol Intake: former Drug use: Current Sobriety Substance use type: does not use Do you feel safe at home: Yes Do you feel safe in your relationship?: Yes Exam Const General: cooperative and no acute distress HENMT Head: normal to inspection Ears: hearing grossly normal bilaterally and external ears normal Face and sinus: normal facial exam Mouth: mucous membranes dry Eyes General: appearance normal, both eyes and all related structures EOM: EOM intact bilaterally Neck Neck: normal visual inspection and No submandibular swelling Lymphatic: no lymphadenopathy noted Chest Chest: normal inspection of the chest and no tenderness Resp Effort & Inspection: normal respiratory effort and able to speak in complete sentences Auscultation: clear to auscultation bilaterally Cardio Rate: regular rate Rhythm: regular rhythm GI Inspection: normal to inspection Palpation: soft, not firm, not rigid and nontender Auscultation: normal bowel sounds Back/Spine/Pelvis Thoracic/Lumbar Spine: thoracic and lumbar spine normal to inspection Skin General skin exam: no rashes or lesions noted Neuro General: patient alert, patient awake and patient oriented x3 Cognition: normal cognition Speech: speech normal Motor: muscle tone normal throughout Sensory Exam: no sensory deficits noted Extrem General: normal to inspection, full ROM, capillary refill normal, no calf tenderness bilaterally and no edema Psych Appearance: grossly normal Mental Status: mental status grossly normal Speech and Movement: speech and movement normal Affect: normal affect Course Vital Signs Vital signs: Vital Signs Temperature 98.4 F 03/19/21 10:23 Pulse 68 03/19/21 10:23 Respiratory Rate 16 03/19/21 10:23 Blood Pressure 118/56 L 03/19/21 10:23 Pulse Oximetry 97 03/19/21 10:23 Temperature 98.4 F 03/19/21 10:23 Temperature Source Skin 03/19/21 10:23 Pulse 68 03/19/21 10:23 Respiratory Rate 16 03/19/21 10:23 Blood Pressure 118/56 L 03/19/21 10:23 Pulse Oximetry 97 03/19/21 10:23 Oxygen Delivery Method Nasal Cannula 03/19/21 10:23 Oxygen Flow Rate 2 03/19/21 10:23 Comment 03/19/21 10:23 Lab/Test Results Lab/Test Results: 03/19/21 10:30 Blood Blood Culture - Pending 03/19/21 10:30 Blood Blood Culture - Pending
[2021-03-19 10:53] LABS: Lactate 0.8 mmol/L (0.6-1.4)
[2021-03-19 10:54] LABS: Abs Immature Grans 0.05 10^3/uL (0.0-0.06); Absolute Basophil Count 0.07 10^3/uL (0.0-0.2); Absolute Eosinophil Count 0.54 10^3/uL (0.0-0.7); Absolute Lymphocyte Count 0.92 10^3/uL (1.2-3.4); Absolute Monocyte Count 0.61 10^3/uL (0.1-0.8); Absolute Neutrophil Count 11.08 10^3/uL (1.2-6.7); Basophils % 0.5; Eosinophils % 4.1; HCT 32.9 % (36.0-46.0); HGB 10.1 g/dL (11.2-15.7); Immature Grans % 0.4; Lymphocytes % 6.9; MCHC 30.7 % (32.0-36.0); MCV 97.6 fL (80-95); MPV 9.8 fL (8.0-11.0); Monocytes % 4.6; Neutrophils % 83.5; Nucleated RBC 0 %; Platelet Count 292 10^3/uL (130-400); RBC 3.37 10^6/uL (3.93-5.22); RDW 13.4 % (11.7-14.6); RDW-SD 48.1 fL; WBC 13.27 10^3/uL (4.4-10.8)
[2021-03-19 11:13] LABS: ALT 9 U/L (14-59); AST 14 U/L (15-37); Albumin 2.9 g/dL (3.4-5.0); Alkaline Phosphatase 111 U/L (46-116); Anion Gap 3.8 mmol/L (3-11); BUN 23 mg/dL (7-18); Bilirubin, Total 0.3 mg/dL (0.2-1.0); CO2 37.2 mmol/L (21.0-32.0); CREATININE 1.8 mg/dL (0.55-1.02); Calcium 10.9 mg/dL (8.5-10.1); Chloride 104 mmol/L (98-107); Estimated GFR 28.07 (mL/min/1.73m2); Glucose 119 mg/dL (74-106); Sodium 145 mmol/L (136-145); Total Protein 7.5 g/dL (6.4-8.2)
[2021-03-19 11:13] LABS: Bilirubin Negative (Negative); Blood Negative (Negative); Clarity Cloudy (Clear); Glucose Negative (Negative); Ketones Negative (Negative); Leukocyte Esterase Moderate (Negative); Nitrite Positive (Negative); Urobilinogen 0.2 EU/dL (Up TO 0.2)
[2021-03-19 11:21] LABS: Bacteria Many HPF (Negative); C & S Indicated? Yes; WBC >50 HPF (0-5)
[2021-03-19] MEDS: Normal Saline 1,000 ML 1000 ML IV (11:35)
--- NOTE | 2021-03-19 11:40 | NUR.NOTE ---
pt diaper wet on arrival cleaned and changed after catheter specimen obtained Nursing Note:
[2021-03-19] MEDS: ACETAMINOPHEN 1,000 MG/100 ML BTL 400 MG IVPB (11:46)
--- NOTE | 2021-03-19 12:00 | RT.EKG_ITS ---
APPROVED REPORT Exam: Resting ECG Reason for Exam: assess QT for med purposes Patient Location: E HR:66 bpm ECG Measurements Heart Rate 66 AXIS AK 230 P 69 QRSd 79 QRS -22 QT 408 T 24 QTc 426 Conclusion Sinus rhythm...normal P axis, V-rate 60- 99 Prolonged AK interval...AK >220, V-rate 50- 90 Inferior infarct, old...Q >35mS, II III aVF. Sinus. No STEMI. I have reviewed and interpreted ECG and agree with software generated interpretation.
[2021-03-19] MEDS: levoFLOXacin 750 MG/150 ML BAG 100 MG IVPB (12:07)
--- NOTE | 2021-03-19 13:35 | NUR.NOTE ---
snack ordered for pt Nursing Note:
--- NOTE | 2021-03-19 13:56 | NUR.NOTE ---
pt sitting up in bed eating custard and drinking [place] Nursing Note:
== END 2021-03-19 14:59 | disposition home or self-care (01) ==
LOC: ER 14:26
PROVIDERS: Emergency Provider Physician Assistant; PCP Nurse Practitioner Family
DX: N39.0 Urinary tract infection, site not specified (principal); B96.1 Klebsiella pneumoniae [K. pneumoniae] as the cause of diseases classified elsewhere
CPT/HCPCS: 36415; 51701; 80053; 87040; 93005; 96361; 96365; 96366; 96367; 99284; 81003; 81015; 83605; 85025; 87086; 93010; J0131; J1956

== ENCOUNTER → 2021-03-24 13:48 | Outpatient (BNVA) | payer MEDICARE, MEDICAID, SELFPAY | PROVIDERS: PCP Nurse Practitioner Family; Referring Provider Nurse Practitioner Family; Visit Provider Nurse Practitioner Adult Health | DX: G43.009 Migraine without aura, not intractable, without status migrainosus (principal); G43.109 Migraine with aura, not intractable, without status migrainosus | CPT/HCPCS: 99213 ==

== ENCOUNTER 2021-03-29 09:09 | Outpatient (CLI) | payer MEDICARE, MEDICAID, SELFPAY ==
--- NOTE | 2021-03-29 09:02 | DI.RAD_ITS ---
Exam(s) XR SHOULDER RT COMPLETE 2+V EXAM: XR SHOULDER RT COMPLETE 2+V CLINICAL HISTORY: right shoulder pain. TECHNIQUE: 2D digital imaging was performed of the right shoulder. Two images were obtained. AP an d Y-view views were obtained. COMPARISON: CR XR SHOULDER RT COMPLETE 2+V from 02/07/2021 FINDINGS: BONES: There is again seen a proximal right humeral fracture. There may be slight increase in the im paction of the fracture compared to the 02/07/2021 study. No new fracture is identified. No bony jyothi tructive lesion is seen. JOINTS: No dislocation present. SOFT TISSUE: Normal. IMPRESSION: 1. Proximal right humeral fracture with slight increased impaction compared to the examination from . 2. No new fracture or dislocation. DATA REPOSITORY: RADIATION DOSE DELIVERED:
== END 2021-03-29 09:10 | disposition home or self-care (01) ==
LOC: DIORS 09:10
PROVIDERS: PCP Nurse Practitioner Family; Referring Provider Student in an Organized Health Care Education/Training Program; Visit Provider Student in an Organized Health Care Education/Training Program
DX: M25.511 Pain in right shoulder (principal); S42.294A Other nondisplaced fracture of upper end of right humerus, initial encounter for closed fracture; W10.8XXA Fall (on) (from) other stairs and steps, initial encounter
CPT/HCPCS: 99213; 73030

== ENCOUNTER 2021-04-08 15:40 | Inpatient (IN) | payer MEDICARE, MEDICAID, SELFPAY ==
[2021-04-08] VITALS (7 sets, daily range): BP systolic 105–137; BP diastolic 43–72; PULSE 64–73; RESP 14–18; TEMP 34.8–36.6; O2SAT 95–98
--- NOTE | 2021-04-08 16:00 | DI.RAD_ITS ---
Exam(s) XR PORTABLE CHEST AP EXAM: XR PORTABLE CHEST AP CLINICAL HISTORY: ?pneumonia TECHNIQUE: 2D digital imaging was performed of the chest. One image was obtained. An AP view was ob tained. COMPARISON: CR XR PORTABLE CHEST AP from 01/28/2021 FINDINGS: MEDIASTINUM: Normal. HEART: Normal. PULMONARY VASCULATURE: Normal. LUNGS: There is plate atelectasis in the left lung base. Otherwise the lungs are clear. No focal co nsolidating infiltrate. PLEURAL SPACE: No pleural effusion or pneumothorax. BONE:Within normal limits for the patient's age. OTHER FINDINGS:Normal. IMPRESSION: Segmental atelectasis in the left lung base. DATA REPOSITORY: RADIATION DOSE DELIVERED:
--- NOTE | 2021-04-08 16:04 | ED.GENADUL_ITS ---
Discharge Plan Disposition Patient Disposition: [facility] INPATIENT Condition: Poor Discharge Details Clinical Impression: Acute UTI, HIPOLITO (acute kidney injury), Dehydration Primary Care Provider: Tosin Lundberg ED Provider: Laureano Woody Hana Meds and New Rx's Prescriptions: No Action aspirin 81 mg tablet 81 mg PO DAILY RF: 0 alendronate 70 mg tablet 70 mg PO QWEEK RF: 0 magnesium hydroxide [Dulcolax (magnesium hydroxide)] 400 mg/5 mL suspension 30 ml PO DAILY PRNRF: 0 clonazepam 0.5 mg tablet 0.5 mg PO BID RF: 0 Combigan 0.2-0.5 % drops 1 drp ophthalmic (eye) BID RF: 0 calcium carbonate-vitamin D3 600 mg(1,500mg) -400 unit capsule 1 cap PO BID RF: 0 ferrous sulfate 325 mg (65 mg iron) tablet,delayed release (DR/EC) 325 mg PO TID RF: 0 gabapentin 100 mg capsule 200 mg PO HS Qty: 180 RF: 3 simvastatin 20 mg Tablet 20 mg PO HS RF: 0 citalopram 20 mg Tablet 20 mg PO HS RF: 0 bisacodyl [Dulcolax (bisacodyl)] 5 mg tablet,delayed release (DR/EC) 10 mg PO .Q72H prn Qty: 7 RF: 0 olanzapine 2.5 mg Tablet 2.5 mg PO Q8H PRNRF: 0 gabapentin 100 mg Capsule 100 mg PO DAILY PRN (Reason: Headache) RF: 0 cholecalciferol (vitamin D3) [Vitamin D3] 25 mcg (1,000 unit) capsule 1,000 mcg PO DAILY RF: 0 metformin 750 mg tablet extended release 24 hr 750 mg PO BID RF: 0 clozapine 25 mg tablet,disintegrating 25 mg PO QAM RF: 0 cyanocobalamin (vitamin B-12) 1,000 mcg tablet 1,000 mcg PO DAILY RF: 0 nicotine (polacrilex) 2 mg gum 2 mg PO Q1H RF: 0 docusate sodium 100 mg capsule 100 mg PO QHS PRNRF: 0 latanoprost 0.005 % Drops 1 drp ophthalmic (eye) HS RF: 0 nicotine [Nicoderm CQ] 7 mg/24 hr Patch 24 Hour 7 mg transdermal Q24H PRNRF: 0 polyethylene glycol 3350 [Miralax] 17 gram/dose Powder 17 g PO DAILY RF: 0 melatonin 3 mg Tablet 3 mg PO HS RF: 0 nicotine (polacrilex) 2 mg Lozenge 2 mg buccal PRN PRNRF: 0 clozapine 100 mg Tablet 150 mg PO HS Qty: 60 RF: 0 Medical Decision Making 66 yo female with hx of dm, migraines, paranoid schizophrenia, who comes in from [facility] and rehab with reports of her being more lethargic and not eating or drinking. She apparently tested positive for covid yesterday per report and after hearing this stopped eating and drinking. She arrives with her eyes closed but will open them when asked. When asked why she here she initially says I don't know I feel fine and then says I'm just tired. She denies headache, dyspnea, chest pain, abdominal pain, urinary symptoms. She has no focal motor deficits, speaking clearly, CN II-XII intact. Suspect this could be a psychosomatic response to her covid diagnosis but will evaluate for anemia and electrolyte abnormalities and monitor. NEuro exam not consistent with cva so do not feel head imaging indicated at this time. No abdominal tenderness so doubt surgical pathology and do not feel imaging of the abdomen indicated. pt's labs remarkable for hipolito with creatinine up to over 4, is making urine and ua consistent with uti, given penicillin allergy levofloxacin ordered. Her glucose was also 48 so d25 ordered and repeat glucose normal, no significant change in mental status. Given her hipolito, uti and hypoglycemia will discuss with hospitalist for admission for ivf, iv antibiotics and observation. I did a bedside u/s and did not notice any significant hydronephrosis repeat bgfs now 52 per nursing, another dose of d25 ordered, will discuss with hospitalist adding dextrose to maintenance fluids Differential Diagnosis Differential Diagnosis: electrolyte abnormality, dehydration, psychosomatic complaints Medical Records Medical records reviewed: Yes I reviewed the patient's medical records. Imaging Data Radiologic Study: Attestation: I personally reviewed and interpreted this imaging study as follows: Imaging: X-Ray Radiologist's impression: IMPRESSION: Suspected focal subsegmental atelectasis seen laterally at the left lung base with the remainder of both lungs and their pleural margins otherwise clear. Lab Data Lab results reviewed: Yes I reviewed the patient's lab results. HPI General Mode of arrival: EMS . Date/Time Provider Initiated Documentation: 04/08/21 15:52 . Limitations to Documentation: no limitations . Information obtained by: patient . History of Present Illness 66 year old F presents to the emergency department with the chief complaint of I'm tired, described as moderate, and it has been constant. No relieving factors improve symptom(s), No exacerbating factors reported . Patient notes no other symptoms.. Patient did receive the following treatments prior to arrival, none Related Data Home Medications Medication Instructions Recorded Confirmed latanoprost 1 drp OPHTHALMIC (EYE) HS 12/17/18 03/29/21 aspirin 81 mg tablet 81 mg PO DAILY 07/14/19 03/29/21 clonazepam 0.5 mg tablet 0.5 mg PO BID tab 07/14/19 04/08/21 nicotine [Nicoderm CQ] 7 mg TRANSDERMAL Q24H PRN 08/28/19 04/08/21 polyethylene glycol 3350 [Miralax] 17 g PO DAILY 08/28/19 04/08/21 melatonin 3 mg PO HS 08/30/19 03/29/21 alendronate 70 mg tablet 70 mg PO QWEEK 06/08/20 03/29/21 citalopram 20 mg PO HS 08/07/20 03/29/21 simvastatin 20 mg PO HS 08/07/20 04/08/21 bisacodyl [Dulcolax (bisacodyl)] 10 mg PO .Q72H prn #7 tab 08/27/20 03/29/21 cholecalciferol (vitamin D3) 1,000 mcg PO DAILY 09/01/20 03/29/21 [Vitamin D3] clozapine 25 mg PO QAM 09/01/20 04/08/21 gabapentin 100 mg PO DAILY PRN 09/01/20 03/29/21 metformin 750 mg PO BID 09/01/20 03/29/21 olanzapine 2.5 mg PO Q8H PRN 09/01/20 03/24/21 brimonidine 0.2 %-timolol 0.5 % 1 drp OPHTHALMIC (EYE) BID 09/13/20 03/29/21 eye drops calcium carbonate-vitamin D3 600 1 cap PO BID 09/13/20 03/29/21 mg (1,500 mg)-400 unit capsule ferrous sulfate 325 mg (65 mg 325 mg PO TID 09/13/20 03/29/21 iron) tablet,delayed release cyanocobalamin (vitamin B-12) 1,000 mcg PO DAILY 01/27/21 03/29/21 docusate sodium 100 mg PO QHS PRN 01/27/21 03/29/21 nicotine (polacrilex) 2 mg PO Q1H 01/27/21 03/29/21 nicotine (polacrilex) 2 mg BUCCAL PRN PRN 01/29/21 03/29/21 gabapentin 100 mg capsule 200 mg PO HS #180 cap 01/31/21 03/29/21 clozapine 150 mg PO HS #60 tab 02/10/21 04/08/21 magnesium hydroxide 400 mg/5 mL 30 ml PO DAILY PRN ml 03/24/21 03/29/21 oral suspension Previous Rx's Medication Instructions Recorded bisacodyl [Dulcolax (bisacodyl)] 10 mg PO .Q72H prn #7 tab 08/27/20 gabapentin 100 mg capsule 200 mg PO HS #180 cap 01/31/21 clozapine 150 mg PO HS #60 tab 02/10/21 Allergies Allergy/AdvReac Type Severity Reaction Status Date / Time fluphenazine enanthate AdvReac Severe almost Verified 04/08/21 18:08 [From Prolixin] last time they gave it to me fluphenazine HCl AdvReac Severe almost Verified 04/08/21 18:08 [From Prolixin] last time they gave it to me haloperidol [From Haldol] AdvReac Mild doesn't Verified 04/08/21 18:08 agree with me haloperidol lactate AdvReac Mild doesn't Verified 04/08/21 18:08 [From Haldol] agree with me chlorpromazine HCl AdvReac Unknown per pt Verified 04/08/21 18:08 [From Thorazine] list from [facility] codeine AdvReac Unknown pt list Verified 04/08/21 18:08 from [facility] ibuprofen AdvReac Unknown per pt Verified 04/08/21 18:08 list from [facility] nicotine AdvReac Unknown per pt Verified 04/08/21 18:08 loist from [facility] paliperidone [From Invega] AdvReac Unknown per pt Verified 04/08/21 18:08 list from [facility] Penicillins AdvReac Unknown per pt Verified 04/08/21 18:08 list from [facility] Sulfa (Sulfonamide AdvReac Unknown per pt Verified 04/08/21 18:08 Antibiotics) list from [facility] General Stated Complaint: AMS/LOC ALEX: 2 Review of Systems All systems reviewed & are unremarkable except as noted in HPI and below Constitutional Constitutional: Denies chills and Denies fever(s) Cardiovascular Cardiovascular: Denies chest pain and Denies dyspnea Respiratory Respiratory: Denies cough and Denies dyspnea Gastrointestinal Gastrointestinal: Denies abdominal pain, Denies nausea and Denies vomiting Musculoskeletal Musculoskeletal: Denies joint swelling PFSH Medical History Ankle pain, left Auditory hallucinations Back pain Calcium kidney stone Chronic constipation COPD (chronic obstructive pulmonary disease) Depressive disorder Diabetes mellitus DNI (do not intubate) DNR (do not resuscitate) Falls Fatigue Fracture of orbital floor, left side, sequela GERD (gastroesophageal reflux disease) Glaucoma Headache Hip pain, bilateral Hyperlipidemia Hypertension Insomnia Intracranial aneurysm Knee pain, bilateral Low back pain Lumbar back pain Migraine headache with aura Migraine headache without aura Osteoarthritis Overweight Paranoid schizophrenia POLST (Physician Orders for Life-Sustaining Treatment) Polyarthralgia Tobacco use disorder Toe infection Umbilical hernia without mention of obstruction or gangrene Urinary frequency Vitamin D deficiency Surgical History H/O: hysterectomy History of bilateral tubal ligation Status post coil embolization of cerebral aneurysm Family History Father Colon cancer Renal cancer Sister Breast cancer Mother Abdominal aortic aneurysm Brother Psychiatric illness Social History Smoking/Tobacco Use Status: Current every day Tobacco Type: cigarettes Smoking risk assessment performed?: Yes Alcohol Intake: former Drug use: Current Sobriety Substance use type: does not use Current gender identity: female Do you feel safe at home: Yes Do you feel safe in your relationship?: Yes Exam Const General: no acute distress Orientation: alert HENMT Head: normal to inspection Ears: external ears normal General nose exam: external nose normal Mouth: moist mucous membranes Eyes General: appearance normal, both eyes and all related structures Neck Neck: normal visual inspection Resp Effort & Inspection: normal respiratory effort and able to speak in complete sentences Cardio Rate: regular rate GI Palpation: soft, not rigid and nontender Skin General skin exam: no rashes or lesions noted Neuro General: patient alert and patient oriented x3 Extrem General: normal to inspection Psych Mental Status: mental status grossly normal Course Vital Signs Vital signs: Vital Signs Temperature 36.6 C 04/08/21 15:48 Pulse 66 04/08/21 15:48 Respiratory Rate 18 04/08/21 15:48 Blood Pressure 105/43 L 04/08/21 15:48 Pulse Oximetry 98 04/08/21 15:48 Temperature 36.6 C 04/08/21 15:48 Temperature Source Oral 04/08/21 15:48 Pulse 66 04/08/21 15:48 Respiratory Rate 18 04/08/21 15:48 Blood Pressure 105/43 L 04/08/21 15:48 Pulse Oximetry 98 04/08/21 15:48 Pain Level 1 04/08/21 15:48
[2021-04-08] MEDS: Normal Saline 1,000 ML 1000 ML IV (16:29)
[2021-04-08 17:09] LABS: BE (Venous) 1 mmol/L (-2-3); HCO3 (Venous) 25 mmol/L (23-28); O2 Sat (Venous) 99 %; TCO2 (Venous) 23 mmol/L (24-29); pCO2 (Venous) 39 mmHg (41-51); pH (Venous) 7.42 (7.31-7.41); pO2 (Venous) 100 mmHg
[2021-04-08 17:35] LABS: ALT 8 U/L (14-59); AST 14 U/L (15-37); Albumin 2.7 g/dL (3.4-5.0); Alkaline Phosphatase 87 U/L (46-116); Anion Gap 11.9 mmol/L (3-11); BUN 49 mg/dL (7-18); Bilirubin, Total 0.3 mg/dL (0.2-1.0); CO2 25.1 mmol/L (21.0-32.0); Calcium 11.1 mg/dL (8.5-10.1); Chloride 109 mmol/L (98-107); Creatine Kinase 18 U/L (26-192); Estimated GFR 9.72 (mL/min/1.73m2); Magnesium 1.9 mg/dL (1.8-2.4); Potassium 5.2 mmol/L (3.5-5.1); Sodium 146 mmol/L (136-145); TSH (W/Ref FT4) 2.04 uIU/mL (0.36-3.74); Total Protein 6.4 g/dL (6.4-8.2)
[2021-04-08 17:36] LABS: Glucose 48 mg/dL (74-106)
[2021-04-08 17:37] LABS: CREATININE 4.5 mg/dL (0.55-1.02)
[2021-04-08] MEDS: Dextrose 25%-Water 10 ML SYR IVP ×2 (17:40→18:59)
[2021-04-08 17:49] LABS: Bilirubin Negative (Negative); Blood Small (Negative); Clarity Cloudy (Clear); Glucose Negative (Negative); Ketones Trace mg/dL (Negative); Leukocyte Esterase Large (Negative); Nitrite Negative (Negative); Specific Gravity >= 1.030 (1.005-1.025); Urobilinogen 0.2 EU/dL (Up TO 0.2)
[2021-04-08 18:00] LABS: Bacteria Many HPF (Negative); WBC >50 HPF (0-5)
[2021-04-08 18:01] LABS: C & S Indicated? Yes
[2021-04-08 18:03] LABS: Source Nasal/Nares
--- NOTE | 2021-04-08 18:28 | DI.VRAD_ITS ---
PROCEDURE INFORMATION: Exam: XR Chest Exam date and time: 04/08/2021 4:04 PM Age: 66 years old Clinical indication: Shortness of breath; Patient HX: ? Pneumonia, SOB TECHNIQUE: Imaging protocol: XR of the chest. Views: 1 view. COMPARISON: CT CHEST/ABD/PEL W 01/27/2021 7:22 PM FINDINGS: Lungs: Suspected focal subsegmental atelectasis seen laterally at the left lung base with the remainder of both lungs and their pleural margins otherwise clear. Pleural spaces: Unremarkable. No pleural effusion. No pneumothorax. Heart/Mediastinum: Heart size is normal and vessel margins are sharply defined. Bones/joints: No acute osseous lesions are detected. IMPRESSION: Suspected focal subsegmental atelectasis seen laterally at the left lung base with the remainder of both lungs and their pleural margins otherwise clear. Dictated and Authenticated by: Chad Webber MD. Ordering:GRACE Tinsley MD
[2021-04-08] MEDS: levoFLOXacin 750 MG/150 ML BAG 100 MG IVPB (18:39)
[2021-04-08 18:54] LABS: Abs Immature Grans 0.02 10^3/uL (0.0-0.06); Absolute Basophil Count 0.03 10^3/uL (0.0-0.2); Absolute Eosinophil Count 0.37 10^3/uL (0.0-0.7); Absolute Lymphocyte Count 1.74 10^3/uL (1.2-3.4); Absolute Monocyte Count 0.43 10^3/uL (0.1-0.8); Absolute Neutrophil Count 4.91 10^3/uL (1.2-6.7); Basophils % 0.4; Eosinophils % 4.9; HCT 34.8 % (36.0-46.0); HGB 10.4 g/dL (11.2-15.7); Immature Grans % 0.3; Lymphocytes % 23.2; MCH 29.7 pg (27.0-33.0); MCHC 29.9 % (32.0-36.0); MCV 99.4 fL (80-95); MPV 9.5 fL (8.0-11.0); Monocytes % 5.7; Neutrophils % 65.5; Nucleated RBC 0 %; Platelet Count 228 10^3/uL (130-400); RDW 13.7 % (11.7-14.6); RDW-SD 50.4 fL
[2021-04-08] MEDS: Dexamethasone 10 MG/ML VIAL 6 MG IVP (18:59)
[2021-04-08 19:05] LABS: COVID-19 PCR POSITIVE (Negative)
[2021-04-08 19:40] LABS: C-Reactive Protein 3.36 mg/dL (0.0-0.3)
[2021-04-08 19:52] LABS: NT-proBNP 608 pg/mL (<300)
[2021-04-08 19:54] LABS: Troponin I < 0.05 ng/mL (<0.06)
[2021-04-08 20:05] LABS: D-Dimer 1109 ng/mlFEU (<500)
[2021-04-08 20:14] LABS: Ferritin 114 ng/mL (8-252)
[2021-04-08] MEDS: clonazePAM 0.5 MG TAB PO (21:22)
[2021-04-08] MEDS: Ascorbic Acid 500 MG TAB 1000 MG PO (21:22)
[2021-04-08] MEDS: DEXTROSE 10%-WATER 500 ML 50 ML IV (21:22)
[2021-04-08] MEDS: Heparin 5,000 UNITS/ML VIAL 5000 UNITS SC (21:22)
[2021-04-08] MEDS: Normal Saline Flush 10 ML SYR IVP (21:23)
[2021-04-08] MEDS: REMDESIVIR 200 MG in Normal Saline 250 ML 250 MG IVPB (22:17)
[2021-04-08] MEDS: Latanoprost 0.005% 2.5 ML BTL OP (22:19)
--- NOTE | 2021-04-08 22:26 | W.PM.HP.N ---
Date of service: 04/08/21 Time of Service: 22:26 Assessment and Plan Assessment and plan (1) Acute UTI: Status: Acute Assessment and plan: continue Levofloxacin at renal adjusted dosing; adjust antibiotics based on urine C&S results (2) Hypoglycemia: Status: Acute Assessment and plan: secondary to poor oral intake over past couple days along w/ continued use of metformin in setting of HIPOLITO/CKD. She should not go back on metformin based on her chronic kidney disease. Her baseline creatinine is around 1.9 to 2.0 and metformin is contraindicated. She should be on basal/bolus insulin therapy. (3) HIPOLITO (acute kidney injury): Status: Acute Assessment and plan: HIPOLITO secondary to dehydration/poor oral intake in setting of CKD. gently hydration w/ hypotonic solution of D10 or D5. Will limit her fluid to 1 liter then saline lock her iv. Due to Covid -19 she is high risk for developing acute lung injury and over hydration is a greater risk. Try to encourage her to drink fluids. (4) Dehydration: Status: Acute Assessment and plan: as above (5) COVID-19: Status: Acute Assessment and plan: oxygen supplementation to keep her SPO2 over 90% and trial of proning, incentive spirometer, decadron, Remdesivir; hold Baricitinib unless she developes moderate symptoms. (6) Kidney failure: Status: Chronic Assessment and plan: chronic; unclear if d/t DM or HTN or other causes. No hydronephrosis per POCUS exam done by Dr. Woody in the ER. Qualifiers: Acute renal failure type: unspecified Chronic kidney disease stage: stage 1 Renal failure chronicity: acute on chronic Qualified Code(s): N17.9 - Acute kidney failure, unspecified; N18.1 - Chronic kidney disease, stage 1 (7) Anemia: Status: Chronic Assessment and plan: chronic; will treate w/ pepcid for GI protection. monitor her counts. Type and screen ordered as part of admission orders for Covid-19 protocol. (8) Diabetes mellitus: Status: Chronic Assessment and plan: will give D10 drip tonight to keep her glucose over 70 mg/dL. will cover w/ low dose sliding scale once her glucose remains over 120. No Lantus or NPH d/t her HIPOLITO/CKD. Once renal function returns to baseline and hypoglycemia has resolved then can use basal insulin at low doses. Qualifiers: Diabetes mellitus complication status: without complication Diabetes mellitus medical terminologist insulin use: without medical terminologist use Diabetes mellitus type: type 2 Qualified Code(s): E11.9 - Type 2 diabetes mellitus without complications (9) DNI (do not intubate): Status: Chronic (10) DNR (do not resuscitate): Status: Chronic (11) Paranoid schizophrenia: Status: Chronic Assessment and plan: continue her home doses of citalopram, Klonopin and Clozaril (12) DVT prophylaxis: Status: Acute Assessment and plan: use heparin SC until renal fxn recovers then lovenox 30 mg daily (13) Discharge planning issues: Status: Acute Assessment and plan: plan to return to [facility] [place] when medically stable History of Present Illness History of Present Illness Chief Complaint: hypoglycemia, HIPOLITO, mental status change, COVID Narrative: 66 yr old female resident of [facility] who was sent to the ER d/t dehydration, HIPOLITO, recurrent hypoglycemia and lethargy. Patient was dx w/ COVID-19 yesterday and has quit eating and drinking for past couple days. Upon arrival to the ER she was lethargic but responsive and when asked why she was brought to the ER she responded to the ER personnel with I don't know, I feel fine and said that I am just tired. She denied any focal complaints of headaches, chest pains or dyspnea, abdominal pains or urinary symptoms. PMH included chronic anemia (baseline Hb 9 to 10 gm), DM,COPD, CKD (baseline creatinine 1.9), depression, paranoid schizophrenia, HTN, GERD, frequent falls and recent fracture of proximal right humerus (01/27/21). Evaluation in the ER included routine labs (CBC, CMP, TSH, UA, nasal PCR for SARS-COV2 which was positive). CBC was remarkable for stable chronic macrocytic anemia (Hb 10.4 gm, MCV 99.4), no leukocytosis and thrombocytosis or thrombocytopenia. CMP was remarkable for HIPOLITO w/ BUN 49, creatinine of 4.5 and sodium 146 and potassium 5.2, chloride 109 w/ AG 11.9, glucose of 48. LFT were normal. TSH was normal at 2.0. UA was remarkable for evidence for UTI ( large leukocyte esterase, >50 WBC/hpf, many bacteria, SG >1.030, 100 mg/dL protein, small amt of blood). Patient reportedly was mildly hypoxemic w/ SPO2 90% on RA but corrected easily to 95% w/ couple liters of oxygen per NC Treatment included iv fluids NS X 1 liter then NS at 150 mL/hr. She was found to be hypoglycemic w/ glucose 48 per lab draw and later dropped again to 51. She was treated w/ D25 to get her glucose up. She is now admitted on med/surg for treatment of her hypoglycemia, HIPOLITO, dehydration and COVID-19. She will be given D10 drip and serial glucose monitoring, monitor of her urine output and started on treatment for COVID-19 including decadron and Remdesivir. As her symptoms are only mild Barcitinib has not been added. She will get heparin for DVT prophylaxis. She was started on Levaquin for her UTI. Her home diabetic meds which includes metformin will be witheld. Hopefully w/ the decadron and D10 drip her glucose should stabilize. Because of her COVID-19 infection we need to carefully watch any iv fluids she is given and stop them as soon as feasible. As for her decreased appetite/intake it is unclear whether this is psychosomatic and related to her psychiatric hx or d/t depression related to news of having COVID-19 or GI related. I will ask for nutrition consults and ask nursing to carefully monitor intake/output and calorie counts. Review of Systems Unobtainable due to mental condition [facility] Medical History (Updated 04/08/21 @ 23:09 by Usman Brewer) HIPOLITO (acute kidney injury) Ankle pain, left Auditory hallucinations Back pain Calcium kidney stone Chronic constipation COPD (chronic obstructive pulmonary disease) Depressive disorder Diabetes mellitus DNI (do not intubate) DNR (do not resuscitate) Falls Fatigue Fracture of orbital floor, left side, sequela GERD (gastroesophageal reflux disease) Glaucoma Headache Hip pain, bilateral Hyperlipidemia Hypertension Insomnia Intracranial aneurysm Kidney failure Knee pain, bilateral Low back pain Lumbar back pain Migraine headache with aura Migraine headache without aura Osteoarthritis Overweight Paranoid schizophrenia POLST (Physician Orders for Life-Sustaining Treatment) Polyarthralgia Tobacco use disorder Toe infection Umbilical hernia without mention of obstruction or gangrene Urinary frequency Vitamin D deficiency Surgical History H/O: hysterectomy History of bilateral tubal ligation Status post coil embolization of cerebral aneurysm Family History Father Colon cancer Renal cancer Sister Breast cancer Mother Abdominal aortic aneurysm Brother Psychiatric illness Social History Smoking/Tobacco Use Status: Current every day Tobacco Type: cigarettes Smoking risk assessment performed?: Yes Alcohol Intake: former Drug use: Current Sobriety Substance use type: does not use Current gender identity: female Do you feel safe at home: Yes Do you feel safe in your relationship?: Yes Meds Allergies and Home Medications Allergies Allergy/AdvReac Type Severity Reaction Status Date / Time fluphenazine enanthate AdvReac Severe almost Verified 04/08/21 18:08 [From Prolixin] last time they gave it to me fluphenazine HCl AdvReac Severe almost Verified 04/08/21 18:08 [From Prolixin] last time they gave it to me haloperidol [From Haldol] AdvReac Mild doesn't Verified 04/08/21 18:08 agree with me haloperidol lactate AdvReac Mild doesn't Verified 04/08/21 18:08 [From Haldol] agree with me chlorpromazine HCl AdvReac Unknown per pt Verified 04/08/21 18:08 [From Thorazine] list from [facility] codeine AdvReac Unknown pt list Verified 04/08/21 18:08 from [facility] ibuprofen AdvReac Unknown per pt Verified 04/08/21 18:08 [place] [facility] [place] AdvReac Unknown per pt Verified 04/08/21 18:08 loist from [facility] paliperidone [From Invega] AdvReac Unknown per pt Verified 04/08/21 18:08 [place] [facility] Penicillins AdvReac Unknown per pt Verified 04/08/21 18:08 [place] [facility] Sulfa (Sulfonamide AdvReac Unknown per pt Verified 04/08/21 18:08 Antibiotics) [place] [facility] [place] Medications Medication Instructions Recorded Confirmed Type latanoprost 1 drp OPHTHALMIC (EYE) HS 12/17/18 03/29/21 History aspirin 81 mg tablet 81 mg PO DAILY 07/14/19 03/29/21 History clonazepam 0.5 mg tablet 0.5 mg PO BID tab 07/14/19 04/08/21 History nicotine [Nicoderm CQ] 7 mg TRANSDERMAL Q24H PRN 08/28/19 04/08/21 History polyethylene glycol 3350 [Miralax] 17 g PO DAILY 08/28/19 04/08/21 History melatonin 3 mg PO HS 08/30/19 03/29/21 History alendronate 70 mg tablet 70 mg PO QWEEK 06/08/20 03/29/21 History citalopram 20 mg PO HS 08/07/20 03/29/21 History simvastatin 20 mg PO HS 08/07/20 04/08/21 History bisacodyl [Dulcolax (bisacodyl)] 10 mg PO .Q72H prn #7 tab 08/27/20 03/29/21 Rx cholecalciferol (vitamin D3) 1,000 mcg PO DAILY 09/01/20 03/29/21 History [Vitamin D3] clozapine 25 mg PO QAM 09/01/20 04/08/21 History gabapentin 100 mg PO DAILY PRN 09/01/20 03/29/21 History metformin 750 mg PO BID 09/01/20 03/29/21 History olanzapine 2.5 mg PO Q8H PRN 09/01/20 03/24/21 History brimonidine 0.2 %-timolol 0.5 % 1 drp OPHTHALMIC (EYE) BID 09/13/20 03/29/21 History eye drops calcium carbonate-vitamin D3 600 1 cap PO BID 09/13/20 03/29/21 History mg (1,500 mg)-400 unit capsule ferrous sulfate 325 mg (65 mg 325 mg PO TID 09/13/20 03/29/21 History iron) tablet,delayed release cyanocobalamin (vitamin B-12) 1,000 mcg PO DAILY 01/27/21 03/29/21 History docusate sodium 100 mg PO QHS PRN 01/27/21 03/29/21 History nicotine (polacrilex) 2 mg PO Q1H 01/27/21 03/29/21 History nicotine (polacrilex) 2 mg BUCCAL PRN PRN 01/29/21 03/29/21 History gabapentin 100 mg capsule 200 mg PO HS #180 cap 01/31/21 03/29/21 Rx clozapine 150 mg PO HS #60 tab 02/10/21 04/08/21 Rx magnesium hydroxide 400 mg/5 mL 30 ml PO DAILY PRN ml 03/24/21 03/29/21 History oral suspension Exam Narrative Exam Narrative: elderly white female who is lethargic but awakens and will speak in coherent words but then closes her eyes. She is confused, she knows that she is in [facility] but does not seem to grasp that she is in the hospital and she is not oriented to date/time/year/season nor her circumstances for which she is hospitalized HEENT: dry mucous membranes, she refuses to keep her eyes open for a VF exam or fundiscopic exam Neck: no JVD, normal carotid pulses, supple, no meningismus Lungs: a few scattered end expiratory wheezes; no rhonchi or rales; mostly diffusely diminished breath sounds Heart: RRR w/out murmur, rub or gallops Abdomen: soft, nontender, nondistended, active bowel sounds; no guarding Extremities: feet cool w/out cyanosis or edema. pedal pulses intact Neuro: normal movement of both upper and lower extremities; no focal weakness nor focal sensory deficits; unable to fully test CN function d/t poor cooperation but she has no overt facial asymmetry nor focal motor or sensory deficits Results Imaging Chest x-ray: report reviewed Labs Result diagrams: 04/08/21 18:45 04/08/21 17:02 Labs: Laboratory Results - last 24 hr 04/08/21 04/08/21 04/08/21 17:02 17:02 17:41 WBC RBC Hgb Hct MCV MCH MCHC RDW Plt Count MPV Immature Gran % Neutrophils % Lymphocytes % Monocytes % Eosinophils % Basophils % Nucleated RBC % Absolute Neutrophils Absolute Lymphocytes Absolute Monocytes Absolute Eosinophils Absolute Basophils D-Dimer VBG pH 7.42 H VBG pCO2 39 L VBG pO2 100 VBG HCO3 25 VBG Total CO2 23 L VBG O2 Saturation 99 VBG Base Excess 1 Sodium 146 H Potassium 5.2 H Chloride 109 H Carbon Dioxide 25.1 Anion Gap 11.9 H BUN 49 H Creatinine 4.5 H* Estimated GFR/1.73 m2 9.72 Glucose 48 L* Calcium 11.1 H Magnesium 1.9 Ferritin Total Bilirubin 0.3 AST 14 L ALT 8 L Alkaline Phosphatase 87 Creatine Kinase 18 L Troponin I C-Reactive Protein NT-Pro-B Natriuret Pep Total Protein 6.4 Albumin 2.7 L TSH 2.04 Urine Color Yellow Urine Clarity Cloudy Urine pH 6.0 Ur Specific [place] >= 1.030 H Urine Protein 100 H Urine Ketones Trace H Urine Blood Small H Urine Nitrite Negative Urine Bilirubin Negative Urine Urobilinogen 0.2 Ur Leukocyte Esterase Large H Urine RBC Not Applicable Urine WBC >50 H Ur Epithelial Cells Not Applicable Urine Crystals Not Applicable Urine Bacteria Many Urine Mucus Not Applicable Ur Culture Indicated? Yes Urine Glucose Negative COVID-19 Source SARS-CoV-2 (PCR) Patient ABO/Rh Antibody Screen 04/08/21 04/08/21 04/08/21 17:45 18:45 19:05 WBC 7.50 RBC 3.50 L Hgb 10.4 L Hct 34.8 L MCV 99.4 H MCH 29.7 MCHC 29.9 L RDW 13.7 Plt Count 228 MPV 9.5 Immature Gran % 0.3 Neutrophils % 65.5 Lymphocytes % 23.2 Monocytes % 5.7 Eosinophils % 4.9 Basophils % 0.4 Nucleated RBC % 0 Absolute Neutrophils 4.91 Absolute Lymphocytes 1.74 Absolute Monocytes 0.43 Absolute Eosinophils 0.37 Absolute Basophils 0.03 D-Dimer VBG pH VBG pCO2 VBG pO2 VBG HCO3 VBG Total CO2 VBG O2 Saturation VBG Base Excess Sodium Potassium Chloride Carbon Dioxide Anion Gap BUN Creatinine Estimated GFR/1.73 m2 Glucose Calcium Magnesium Ferritin Total Bilirubin AST ALT Alkaline Phosphatase Creatine Kinase Troponin I C-Reactive Protein NT-Pro-B Natriuret Pep Total Protein Albumin TSH Urine Color Urine Clarity Urine pH Ur Specific [place] Urine Protein Urine Ketones Urine Blood Urine Nitrite Urine Bilirubin Urine Urobilinogen Ur Leukocyte Esterase Urine RBC Urine WBC Ur Epithelial Cells Urine Crystals Urine Bacteria Urine Mucus Ur Culture Indicated? Urine Glucose COVID-19 Source Nasal/Nares SARS-CoV-2 (PCR) POSITIVE A* Patient ABO/Rh A Negative Antibody Screen NEGATIVE 04/08/21 04/08/21 04/08/21 19:05 19:05 19:05 WBC RBC Hgb Hct MCV MCH MCHC RDW Plt Count MPV Immature Gran % Neutrophils % Lymphocytes % Monocytes % Eosinophils % Basophils % Nucleated RBC % Absolute Neutrophils Absolute Lymphocytes Absolute Monocytes Absolute Eosinophils Absolute Basophils D-Dimer 1109 H VBG pH VBG pCO2 VBG pO2 VBG HCO3 VBG Total CO2 VBG O2 Saturation VBG Base Excess Sodium Potassium Chloride Carbon Dioxide Anion Gap BUN Creatinine Estimated GFR/1.73 m2 Glucose Calcium Magnesium Ferritin Total Bilirubin AST ALT Alkaline Phosphatase Creatine Kinase Troponin I < 0.05 C-Reactive Protein 3.36 H NT-Pro-B Natriuret Pep 608 H Total Protein Albumin TSH Urine Color Urine Clarity Urine pH Ur Specific [place] Urine Protein Urine Ketones Urine Blood Urine Nitrite Urine Bilirubin Urine Urobilinogen Ur Leukocyte Esterase Urine RBC Urine WBC Ur Epithelial Cells Urine Crystals Urine Bacteria Urine Mucus Ur Culture Indicated? Urine Glucose COVID-19 Source SARS-CoV-2 (PCR) Patient ABO/Rh Antibody Screen 04/08/21 19:05 WBC RBC Hgb Hct MCV MCH MCHC RDW Plt Count MPV Immature Gran % Neutrophils % Lymphocytes % Monocytes % Eosinophils % Basophils % Nucleated RBC % Absolute Neutrophils Absolute Lymphocytes Absolute Monocytes Absolute Eosinophils Absolute Basophils D-Dimer VBG pH VBG pCO2 VBG pO2 VBG HCO3 VBG Total CO2 VBG O2 Saturation VBG Base Excess Sodium Potassium Chloride Carbon Dioxide Anion Gap BUN Creatinine Estimated GFR/1.73 m2 Glucose Calcium Magnesium Ferritin 114 Total Bilirubin AST ALT Alkaline Phosphatase Creatine Kinase Troponin I C-Reactive Protein NT-Pro-B Natriuret Pep Total Protein Albumin TSH Urine Color Urine Clarity Urine pH Ur Specific [place] Urine Protein Urine Ketones Urine Blood Urine Nitrite Urine Bilirubin Urine Urobilinogen Ur Leukocyte Esterase Urine RBC Urine WBC Ur Epithelial Cells Urine Crystals Urine Bacteria Urine Mucus Ur Culture Indicated? Urine Glucose COVID-19 Source SARS-CoV-2 (PCR) Patient ABO/Rh Antibody Screen Last Vital Signs Temp 36.1 C L 04/08/21 18:03 Pulse 73 04/08/21 21:49 Resp 15 04/08/21 19:34 BP 133/72 04/08/21 18:03 Pulse Ox 95 04/08/21 18:03
[2021-04-08] MEDS: Gabapentin 100 MG CAP 200 MG PO (22:29)
[2021-04-08] MEDS: Citalopram 20 MG TAB PO (22:29)
[2021-04-08] MEDS: Simvastatin 20 MG TAB PO (22:29)
[2021-04-09] VITALS (7 sets, daily range): BP systolic 118–138; BP diastolic 58–68; PULSE 66–86; RESP 1–18; TEMP 35–35.6; O2SAT 81–94
[2021-04-09] MEDS: Heparin 5,000 UNITS/ML VIAL 5000 UNITS SC (06:11)
[2021-04-09 07:36] LABS: Abs Immature Grans 0.03 10^3/uL (0.0-0.06); Absolute Basophil Count 0.01 10^3/uL (0.0-0.2); Absolute Eosinophil Count 0.01 10^3/uL (0.0-0.7); Absolute Lymphocyte Count 0.92 10^3/uL (1.2-3.4); Absolute Monocyte Count 0.11 10^3/uL (0.1-0.8); Absolute Neutrophil Count 4.56 10^3/uL (1.2-6.7); Basophils % 0.2; Eosinophils % 0.2; HCT 34.2 % (36.0-46.0); HGB 10.6 g/dL (11.2-15.7); Immature Grans % 0.5; Lymphocytes % 16.3; MCH 29.1 pg (27.0-33.0); MPV 10.4 fL (8.0-11.0); Neutrophils % 80.8; Nucleated RBC 0 %; Platelet Count 222 10^3/uL (130-400); RBC 3.64 10^6/uL (3.93-5.22); RDW 13.3 % (11.7-14.6); WBC 5.64 10^3/uL (4.4-10.8)
[2021-04-09 07:53] LABS: ALT 8 U/L (14-59); AST 16 U/L (15-37); Albumin 2.7 g/dL (3.4-5.0); Alkaline Phosphatase 87 U/L (46-116); Anion Gap 14.9 mmol/L (3-11); BUN 48 mg/dL (7-18); Bilirubin, Total 0.3 mg/dL (0.2-1.0); CO2 23.1 mmol/L (21.0-32.0); Calcium 10.8 mg/dL (8.5-10.1); Chloride 105 mmol/L (98-107); Estimated GFR 9.97 (mL/min/1.73m2); Glucose 215 mg/dL (74-106); Magnesium 1.7 mg/dL (1.8-2.4); Potassium 5.9 mmol/L (3.5-5.1); Sodium 143 mmol/L (136-145); Total Protein 7.1 g/dL (6.4-8.2)
[2021-04-09 08:04] LABS: CREATININE 4.4 mg/dL (0.55-1.02)
[2021-04-09] MEDS: Lactated Ringers 1,000 ML 80 ML IV (10:27)
--- NOTE | 2021-04-09 11:08 | PT.INIE ---
Date of service: 04/09/21 Time of Service: 09:50 PT Notes Visit Reasons: Acute Mental Status [place],Dehydration,HIPOLITO,Covid-19 Inpatient Physical Therapy Evaluation Date: 04/09/21 Referring Doctor: Usman Brewer PT Orders: PT CONSULT: Exacerbation of chronic condition Precautions: COVID-19, Fall Patient Profile/Admitting Diagnosis: Acute mental status change, dehydration, HIPOLITO, Covid?19 Patient Profile/Admitting Diagnosis: Orders received for this 66 year old female who was admitted secondary to increased lethargy, not eating or drinking, dehydration, HIPOLITO, recurrent hypoglycemia.resides at [facility] re[facility] with plan to return there once medically stable. As per EMR information she utilizes a walker at baseline. Patient sustained a proximal humeral fracture and was hospitalized from January 27 to February 10, 2021. Patient did have orthopedic follow-up on 29 March. Diagnostics revealed slow healing leaving suspicion of a nonunion PMHX: Medical History (Updated 04/08/21 @ 23:09 by Usman Brewer) HIPOLITO (acute kidney injury) Ankle pain, left Auditory hallucinations Back pain Calcium kidney stone Chronic constipation COPD (chronic obstructive pulmonary disease) Depressive disorder Diabetes mellitus DNI (do not intubate) DNR (do not resuscitate) Falls Fatigue Fracture of orbital floor, left side, sequela GERD (gastroesophageal reflux disease) Glaucoma Headache Hip pain, bilateral Hyperlipidemia Hypertension Insomnia Intracranial aneurysm Kidney failure Knee pain, bilateral Low back pain Lumbar back pain Migraine headache with aura Migraine headache without aura Osteoarthritis Overweight Paranoid schizophrenia POLST (Physician Orders for Life-Sustaining Treatment) Polyarthralgia Tobacco use disorder Toe infection Umbilical hernia without mention of obstruction or gangrene Urinary frequency Vitamin D deficiency Surgical History H/O: hysterectomy History of bilateral tubal ligation Status post coil embolization of cerebral aneurysm Social History/Home Situation: [facility] Equipment Owned/DME: [facility] Subjective: Difficult to engage in conversation with patient. Very lethargic. Unable to follow verbal commands. When asked about pain she does state her right shoulder is sore Objective: Patient very hard to engage and maintain alert status. She reluctantly agrees to participate with PT but needs constant sternal rubs and techniques for arousal. RN Telma in room during evaluation. RN states that this patient has been minimally responsive requiring frequent sternal rubs for arousal as well. Unable to communicate with complete sentences. Mental Status: Oriented to town she lives in [facility]. Not orientated to specific location, time, date. She is able to state her name. Observation: Telemetry, IV lines bilateral upper extremities, supplemental oxygen 3.5 L via nasal cannula, catheter. Patient does have ulcer in sacral region as per nursing report. Pain: Unable to give VAS score ROM: Right Upper Extremity: Wrist motion only. Active assistive shoulder scapular abduction 50 degrees limited due to pain, active assistive internal rotation 45 degrees, external rotation 10 degrees. Elbow flexion extension active assisted within functional limits. Active elbow range of motion 20 degrees flexion to 70 degrees flexion. Left Upper Extremity: MOtion through the shoulder flexes to 120 degrees, elbow motion WNL, wrist motion WNL Right Lower Extremity: Patient unable to follow verbal commands for active range of motion. Passive range of motion hip and knee within functional limits Left Lower Extremity: Patient unable to follow verbal commands for active range of motion. 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 Gait: Not tested due to current state Balance: Static Sitting: Poor Dynamic Sitting: Poor Static Standing: Poor Dynamic Standing: Poor Special Tests: Mobility Limitations Standardized Measure [facility] AM-PAC 6 clicks Basic Mobility Inpatient Short Form: Raw Score: 6 Standardized Score: 23.55 CMS Score: 100% Informed Consent/Education: Patient instructed in purpose of PT consult and plan of care. ASSESSMENT: Patient is a 65 year old female with hx of poor physical health Admitted with diagnosis of dehydration, HIPOLITO, recurrent hypoglycemia, lethargic. Also has pre-existing closed fracture proximal right humerus January 27, 2021 Patient presents with the following impairment level findings: Poor arousal, low level of active engagement, difficulty with use of upper and lower extremities. Limited ROM, decreased use of self transfers, ambulation intolerance. Pt will benefit from skilled therapy intervention in order to remedy their functional limitations and restore patient to a more appropriate and stable functional level. Impairments are contributing to the following functional limitations: AMPAC score 100% Patient is assessed as a High Complexity Initial Evaluation based on the following: History: see above Examination: see above Presentation: Unstable Decision Making: High due to AMPAC of 100% Goals: Goals X1 week 1. Supine-Sit Min Assist 2. Sit-Supine MIn Assist 3. Sit-Stand Min Assist 4. Stand-Sit Min Assist 5. Bed-Chair Min Assist 6. Gait With Min Assist and use of FWW up to 50 feet Plan of Care/Treatment Plan: 1-2x/day, 7 days/week x 1 week. Plan of care has been reviewed with the WAREHOUSE STOCKER providing the service under Physical Therapy direction. Initiate Physical Therapy intervention for strengthening, bed mobility, transfers, gait, stairs, balance training, use of assistive device. We will recheck with nursing tomorrow to determine patient's arousal level. Will attempt to reassess functional mobility if patient is more coherent. DISCHARGE RECOMMENDATIONS: Return to [facility] when medically cleared. TREATMENT CODE/TIME: High Complexity Initial evaluation 80034 Time of treatment 950, 40 minutes of direct patient care
[2021-04-09] MEDS: Albuterol 2.5 MG/3 ML INH SOLN VIAL UPD (11:52)
--- NOTE | 2021-04-09 13:49 | W.PM.PROGNOT ---
Date of Service Date of service: 04/09/21 Time of Service: 13:52 Assessment and Plan Assessment and plan (1) COVID-19: Status: Acute Assessment and plan: Stopped steroid and remdesivir per patients request. Also stopped supplemental O2 per her request. PRN morphine IV for air hunger. (2) Acute UTI: Status: Acute Assessment and plan: She initially received Levaquin. Culture pending. Desires no further treatment. (3) HIPOLITO (acute kidney injury): Status: Acute Assessment and plan: Stopped IV hydration per her request. (4) DNI (do not intubate): Status: Chronic (5) DNR (do not resuscitate): Status: Chronic (6) Comfort measures only status: Status: Acute Assessment and plan: Patient was clear that she wanted treatments, including supplemental O2, stopped. She was aware that this would result in her ; likely in a short matter of time. She did have her sister, Daija Fatima, listed as her DPOA on her COLST form, however Ms Fatima stated she had never agreed to this. Subjective Subjective Patient reports: afebrile; denies diarrhea, nausea, vomiting and shortness of breath (Not currently while lying still.) Interval history since last seen: Patient requested to Respiratory Therapist to remove her supplemental oxygen and stated she wanted no medications. This was also voiced to her nurse and myself. Exam Const General: cooperative and no acute distress Nutritional Appearance: average body habitus Other: Wakens briefly to answer questions then closes eyes. HENMT Head: normocephalic and atraumatic Eyes General: appearance normal, both eyes and all related structures Sclera: sclerae normal Resp Effort & Inspection: normal respiratory effort Auscultation: clear to auscultation bilaterally (Anteriorly) and diminished lung sounds Cardio Rate: regular rate Rhythm: regular rhythm Heart Sounds: S1 normal, S2 normal and no murmurs GI Palpation: soft and nontender Skin General skin exam: no rashes or lesions noted Extrem General: no pedal edema and no calf tenderness Psych Appearance: grossly normal Speech and Movement: speech and movement normal Affect: blunted Objective Last Vital Signs Temp 35.5 C L 04/09/21 10:36 Pulse 71 04/09/21 12:04 Resp 18 04/09/21 12:04 BP 138/68 04/09/21 10:36 Pulse Ox 81 L 04/09/21 12:04 Laboratory Results - last 24 hr 04/08/21 04/08/21 04/08/21 17:02 17:02 17:41 WBC RBC Hgb Hct MCV MCH MCHC RDW Plt Count MPV Immature Gran % Neutrophils % Lymphocytes % Monocytes % Eosinophils % Basophils % Nucleated RBC % Absolute Neutrophils Absolute Lymphocytes Absolute Monocytes Absolute Eosinophils Absolute Basophils D-Dimer VBG pH 7.42 H VBG pCO2 39 L VBG pO2 100 VBG HCO3 25 VBG Total CO2 23 L VBG O2 Saturation 99 VBG Base Excess 1 Sodium 146 H Potassium 5.2 H Chloride 109 H Carbon Dioxide 25.1 Anion Gap 11.9 H BUN 49 H Creatinine 4.5 H* Estimated GFR/1.73 m2 9.72 Glucose 48 L* Calcium 11.1 H Magnesium 1.9 Ferritin Total Bilirubin 0.3 AST 14 L ALT 8 L Alkaline Phosphatase 87 Creatine Kinase 18 L Troponin I C-Reactive Protein NT-Pro-B Natriuret Pep Total Protein 6.4 Albumin 2.7 L TSH 2.04 Urine Color Yellow Urine Clarity Cloudy Urine pH 6.0 Ur Specific Buckner >= 1.030 H Urine Protein 100 H Urine Ketones Trace H Urine Blood Small H Urine Nitrite Negative Urine Bilirubin Negative Urine Urobilinogen 0.2 Ur Leukocyte Esterase Large H Urine RBC Not Applicable Urine WBC >50 H Ur Epithelial Cells Not Applicable Urine Crystals Not Applicable Urine Bacteria Many Urine Mucus Not Applicable Ur Culture Indicated? Yes Urine Glucose Negative COVID-19 Source SARS-CoV-2 (PCR) Patient ABO/Rh Antibody Screen 04/08/21 04/08/21 04/08/21 17:45 18:45 19:05 WBC 7.50 RBC 3.50 L Hgb 10.4 L Hct 34.8 L MCV 99.4 H MCH 29.7 MCHC 29.9 L RDW 13.7 Plt Count 228 MPV 9.5 Immature Gran % 0.3 Neutrophils % 65.5 Lymphocytes % 23.2 Monocytes % 5.7 Eosinophils % 4.9 Basophils % 0.4 Nucleated RBC % 0 Absolute Neutrophils 4.91 Absolute Lymphocytes 1.74 Absolute Monocytes 0.43 Absolute Eosinophils 0.37 Absolute Basophils 0.03 D-Dimer VBG pH VBG pCO2 VBG pO2 VBG HCO3 VBG Total CO2 VBG O2 Saturation VBG Base Excess Sodium Potassium Chloride Carbon Dioxide Anion Gap BUN Creatinine Estimated GFR/1.73 m2 Glucose Calcium Magnesium Ferritin Total Bilirubin AST ALT Alkaline Phosphatase Creatine Kinase Troponin I C-Reactive Protein NT-Pro-B Natriuret Pep Total Protein Albumin TSH Urine Color Urine Clarity Urine pH Ur Specific Buckner Urine Protein Urine Ketones Urine Blood Urine Nitrite Urine Bilirubin Urine Urobilinogen Ur Leukocyte Esterase Urine RBC Urine WBC Ur Epithelial Cells Urine Crystals Urine Bacteria Urine Mucus Ur Culture Indicated? Urine Glucose COVID-19 Source Nasal/Nares SARS-CoV-2 (PCR) POSITIVE A* Patient ABO/Rh A Negative Antibody Screen NEGATIVE 04/08/21 04/08/21 04/08/21 19:05 19:05 19:05 WBC RBC Hgb Hct MCV MCH MCHC RDW Plt Count MPV Immature Gran % Neutrophils % Lymphocytes % Monocytes % Eosinophils % Basophils % Nucleated RBC % Absolute Neutrophils Absolute Lymphocytes Absolute Monocytes Absolute Eosinophils Absolute Basophils D-Dimer 1109 H VBG pH VBG pCO2 VBG pO2 VBG HCO3 VBG Total CO2 VBG O2 Saturation VBG Base Excess Sodium Potassium Chloride Carbon Dioxide Anion Gap BUN Creatinine Estimated GFR/1.73 m2 Glucose Calcium Magnesium Ferritin Total Bilirubin AST ALT Alkaline Phosphatase Creatine Kinase Troponin I < 0.05 C-Reactive Protein 3.36 H NT-Pro-B Natriuret Pep 608 H Total Protein Albumin TSH Urine Color Urine Clarity Urine pH Ur Specific Buckner Urine Protein Urine Ketones Urine Blood Urine Nitrite Urine Bilirubin Urine Urobilinogen Ur Leukocyte Esterase Urine RBC Urine WBC Ur Epithelial Cells Urine Crystals Urine Bacteria Urine Mucus Ur Culture Indicated? Urine Glucose COVID-19 Source SARS-CoV-2 (PCR) Patient ABO/Rh Antibody Screen 04/08/21 04/09/21 04/09/21 19:05 07:06 07:06 WBC 5.64 RBC 3.64 L Hgb 10.6 L Hct 34.2 L MCV 94.0 D MCH 29.1 MCHC 31.0 L RDW 13.3 Plt Count 222 MPV 10.4 Immature Gran % 0.5 Neutrophils % 80.8 Lymphocytes % 16.3 Monocytes % 2.0 Eosinophils % 0.2 Basophils % 0.2 Nucleated RBC % 0 Absolute Neutrophils 4.56 Absolute Lymphocytes 0.92 L Absolute Monocytes 0.11 Absolute Eosinophils 0.01 Absolute Basophils 0.01 D-Dimer VBG pH VBG pCO2 VBG pO2 VBG HCO3 VBG Total CO2 VBG O2 Saturation VBG Base Excess Sodium 143 Potassium 5.9 H Chloride 105 Carbon Dioxide 23.1 Anion Gap 14.9 H BUN 48 H Creatinine 4.4 H* Estimated GFR/1.73 m2 9.97 Glucose 215 H D Calcium 10.8 H Magnesium 1.7 L Ferritin 114 Total Bilirubin 0.3 AST 16 ALT 8 L Alkaline Phosphatase 87 Creatine Kinase Troponin I C-Reactive Protein NT-Pro-B Natriuret Pep Total Protein 7.1 Albumin 2.7 L TSH Urine Color Urine Clarity Urine pH Ur Specific Buckner Urine Protein Urine Ketones Urine Blood Urine Nitrite Urine Bilirubin Urine Urobilinogen Ur Leukocyte Esterase Urine RBC Urine WBC Ur Epithelial Cells Urine Crystals Urine Bacteria Urine Mucus Ur Culture Indicated? Urine Glucose COVID-19 Source SARS-CoV-2 (PCR) Patient ABO/Rh Antibody Screen
--- NOTE | 2021-04-09 14:08 | RESPIRATORY ---
[address] Poon, pt placed on comfort care. Oxygen d/c @ 1408 at request of patient and .
[2021-04-09] MEDS: Scopolamine 1 MG/3 DAYS PATCH TD (16:39)
--- NOTE | 2021-04-09 17:29 | NUR.NOTE ---
Nursing Note:I check on my patient and she spoke to me briefly. I asked her if there was anything I could do for her and she said that there was nothing to do. I asked again if she wanted breathing treatments, O2, antibiotics etc and she responded no and went back to sleep
--- NOTE | 2021-04-09 17:43 | PDOC.CMIN ---
- If Service Date Differs Date of service: 04/09/21 Time of Service: 17:43 Care Management Initial Assess REASON FOR HOSPITALIZATION:: AMS, dehydration, Covid19 PAST MEDICAL HISTORY/PAST SURGICAL HISTORY:: Medical History. HIPOLITO (acute kidney injury). Ankle pain, left. Auditory hallucinations. Back pain. Calcium kidney stone. Chronic constipation. COPD (chronic obstructive pulmonary disease). Depressive disorder. Diabetes mellitus. DNI (do not intubate). DNR (do not resuscitate). Falls. Fatigue. Fracture of orbital floor, left side, sequela. GERD (gastroesophageal reflux disease). Glaucoma. Headache. Hip pain, bilateral. Hyperlipidemia. Hypertension. Insomnia. Intracranial aneurysm. Kidney failure. Knee pain, bilateral. Low back pain. Lumbar back pain. Migraine headache with aura. Migraine headache without aura. Osteoarthritis. Overweight. Paranoid schizophrenia. POLST (Physician Orders for Life-Sustaining Treatment). Polyarthralgia. Tobacco use disorder. Toe infection. Umbilical hernia without mention of obstruction or gangrene. Urinary frequency. Vitamin D deficiency. Surgical History. H/O: hysterectomy. History of bilateral tubal ligation. Status post coil embolization of cerebral aneurysm PREVIOUS FUNCTIONAL STATUS/SOCIAL/FAMILY SUPPORTS:: Janel Fay, previously lived at [facility], a residential in [place], [place]. She was recently transferred to [facility], which is where she arrived from on this admission. Her brother, Jonnie, also lives at [facility]. She has a sister who lives in [facility]. Janel is also a [employer] client. CURRENT FUNCTIONAL STATUS:: Nya is currently on Covid precautions, therefore CM was unable to meet with her today. Per MD, Nya decided today that she would like to be comfort measures, and no longer wants treatment or supplemental oxygen. Her sister, Daija was contacted, and a phone call was coordinated by her RN, who was in the room. CM will continue to follow. ADVANCE DIRECTIVES:: COLST on file. Has patient been provided with info about the portal/API?: Yes Did the patient sign up for the portal?: No CODE STATUS:: DNR/DNI INSURANCE COVERAGE / FINANCIAL ISSUES:: [facility]/ [employer] CURRENT HOME/COMMUNITY SERVICES/EQUIPMENT:: Nya currently lives at [facility] where she receives full care. PRIMARY CARE PHYSICIAN:: Tosin Lundberg POTENTIAL DISCHARGE NEEDS:: Nya may pass on this admission. Unsure of final arrangements. PATIENT/FAMILY EDUCATION NEEDS:: Support to patient and family regarding end of life care. PLAN:: Nya has transitioned to comfort measures. Per SOFI, she wanted to be at [facility] for end of life care, but due to her COVID diagnosis, she will remain at [facility]. Her family was called today and was able to talk to her over the phone. CM will continue to support pt and family during this difficult time.
--- NOTE | 2021-04-10 08:42 | PT.INNT ---
PT Notes Visit Reasons: Acute Mental Status Maddox,Dehydration,HIPOLITO,Covid-19 Patient placed on comfort measures. Discontinue PT services.
--- NOTE | 2021-04-10 13:07 | W.PM.PROGNOT ---
Date of Service Date of service: 04/10/21 Time of Service: 13:08 Assessment and Plan Assessment and plan (1) Comfort measures only status: Status: Acute Assessment and plan: Currently achieving goal of comfort. (2) COVID-19: Status: Acute Assessment and plan: Treatment stopped per pts wishes. Off supplemental O2 per her wishes. (3) Acute UTI: Status: Acute Assessment and plan: Urine culture was negative. Subjective Subjective Patient reports: afebrile; denies diarrhea and vomiting Interval history since last seen: Somnolent. Not eating or drinking. Not noted to appear uncomfortable / in distress. Exam Narrative Exam Narrative: Lying supine in bed. No labored breathing. Objective Last Vital Signs Temp 35.5 C L 04/09/21 10:36 Pulse 86 04/09/21 14:49 Resp 18 04/09/21 12:04 BP 138/68 04/09/21 10:36 Pulse Ox 81 L 04/09/21 12:04
--- NOTE | 2021-04-11 10:26 | W.PM.DS.N ---
Date of service: 04/11/21 Time of Service: 10:27 DS: Diagnosis Discharge Diagnosis (1) Comfort measures only status: Status: Acute (2) COVID-19: Status: Acute (3) Acute UTI: Status: Acute Discharge Plan Disposition Patient Disposition: [facility] ([facility] Condition: Poor Discharge Details Reason For Visit: Acute Mental Status Maddox,Dehydration,HIPOLITO,Covid-19 Admit Date/Time: 04/08/21 18:28 Admit Provider: Usman Brewer Attending Provider: Usman Brewer [facility] Hospital Course: 66 yr old female resident of [facility] who was sent to the ER d/t dehydration, HIPOLITO, recurrent hypoglycemia and lethargy. Patient was dx w/ COVID-19 the day prior to admission. She had quit eating and drinking for past couple days. Upon arrival to the ER she was lethargic but responsive and when asked why she was brought to the ER she responded to the ER personnel with I don't know, I feel fine and said that I am just tired. She denied any focal complaints of headaches, chest pains or dyspnea, abdominal pains or urinary symptoms. PMH included chronic anemia (baseline Hb 9 to 10 gm), DM,COPD, CKD (baseline creatinine 1.9), depression, paranoid schizophrenia, HTN, GERD, frequent falls and recent fracture of proximal right humerus (01/27/21). Evaluation in the ER included routine labs (CBC, CMP, TSH, UA, nasal PCR for SARS-COV2 which was positive). CBC was remarkable for stable chronic macrocytic anemia (Hb 10.4 gm, MCV 99.4), no leukocytosis and thrombocytosis or thrombocytopenia. CMP was remarkable for HIPOLITO w/ BUN 49, creatinine of 4.5 and sodium 146 and potassium 5.2, chloride 109 w/ AG 11.9, glucose of 48. LFT were normal. TSH was normal at 2.0. UA was remarkable for evidence for UTI ( large leukocyte esterase, >50 WBC/hpf, many bacteria, SG >1.030, 100 mg/dL protein, small amt of blood). Patient reportedly was mildly hypoxemic w/ SPO2 90% on RA but corrected easily to 95% w/ couple liters of oxygen per NC Treatment included iv fluids NS X 1 liter then NS at 150 mL/hr. She was found to be hypoglycemic w/ glucose 48 per lab draw and later dropped again to 51. She was treated w/ D25 to get her glucose up. She was admitted on med/surg for treatment of her hypoglycemia, HIPOLITO, dehydration and COVID-19. A [id number] infusion initiated. Serial glucose monitoring, monitor of her urine output and started on treatment for COVID-19 including decadron and Remdesivir initiated. As her symptoms are only mild Barcitinib has not been added. Heparin for DVT prophylaxis. She was started on Levaquin for her UTI. Her home diabetic meds which includes metformin were witheld. She subsequently stated she no longer wanted treatment; asked to have the nasal cannula removed and to receive no more medications. She was alert and aware of her COVID-19 diagnosis and possible UTI at the time of making this decision. Her urine culture was negative. Comfort measures were initiated. She remained calm, lethargic, not requiring any IV morphine or ativan to keep her comfortable. [facility]. Home Meds and New Rx's Prescriptions: New scopolamine base 1 mg over 3 days Patch 3 Day 1 mg transdermal Q72H Qty: 0 RF: 0 Continued nicotine [Nicoderm CQ] 7 mg/24 hr Patch 24 Hour 7 mg transdermal Q24H PRNRF: 0 Discontinued aspirin 81 mg tablet 81 mg PO DAILY RF: 0 alendronate 70 mg tablet 70 mg PO QWEEK RF: 0 magnesium hydroxide [Dulcolax (magnesium hydroxide)] 400 mg/5 mL suspension 30 ml PO DAILY PRNRF: 0 clonazepam 0.5 mg tablet 0.5 mg PO BID RF: 0 Combigan 0.2-0.5 % drops 1 drp ophthalmic (eye) BID RF: 0 calcium carbonate-vitamin D3 600 mg(1,500mg) -400 unit capsule 1 cap PO BID RF: 0 ferrous sulfate 325 mg (65 mg iron) tablet,delayed release (DR/EC) 325 mg PO TID RF: 0 gabapentin 100 mg capsule 200 mg PO HS Qty: 180 RF: 3 simvastatin 20 mg Tablet 20 mg PO HS RF: 0 citalopram 20 mg Tablet 20 mg PO HS RF: 0 bisacodyl [Dulcolax (bisacodyl)] 5 mg tablet,delayed release (DR/EC) 10 mg PO .Q72H prn Qty: 7 RF: 0 olanzapine 2.5 mg Tablet 2.5 mg PO Q8H PRNRF: 0 gabapentin 100 mg Capsule 100 mg PO DAILY PRN (Reason: Headache) RF: 0 cholecalciferol (vitamin D3) [Vitamin D3] 25 mcg (1,000 unit) capsule 1,000 mcg PO DAILY RF: 0 metformin 750 mg tablet extended release 24 hr 750 mg PO BID RF: 0 clozapine 25 mg tablet,disintegrating 25 mg PO QAM RF: 0 cyanocobalamin (vitamin B-12) 1,000 mcg tablet 1,000 mcg PO DAILY RF: 0 nicotine (polacrilex) 2 mg gum 2 mg PO Q1H RF: 0 docusate sodium 100 mg capsule 100 mg PO QHS PRNRF: 0 latanoprost 0.005 % Drops 1 drp ophthalmic (eye) HS RF: 0 polyethylene glycol 3350 [Miralax] 17 gram/dose Powder 17 g PO DAILY RF: 0 melatonin 3 mg Tablet 3 mg PO HS RF: 0 nicotine (polacrilex) 2 mg Lozenge 2 mg buccal PRN PRNRF: 0 clozapine 100 mg Tablet 150 mg PO HS Qty: 60 RF: 0 DS: Summary Time Spent with Patient providing and/or coordinating discharge services: Less than 30 minutes Status at Discharge Functional status at discharge: bed bound Overall status at discharge: patient is not back to baseline Mental Status: other Speech and Movement: slowed movement Mood: other Affect: blunted Exam Narrative Exam Narrative: Ms Westbrook is lying supine. Lethargic. NAD. Psych Mental Status: other Speech and Movement: slowed movement Mood: other Affect: blunted DS: Data Vitals/I&O Vitals and I&O: Vital Signs Temperature 35.5 C L 04/09/21 10:36 Temperature Source Tympanic 04/09/21 10:36 Pulse 86 04/09/21 14:49 Pulse Rhythm Regular 04/10/21 04:00 Respiratory Rate 18 04/09/21 12:04 Respiratory Effort Non-Labored 04/10/21 04:00 Respiratory Depth Normal 04/10/21 04:00 Respiratory Pattern Normal 04/10/21 04:00 Blood Pressure 138/68 04/09/21 10:36 Pulse Oximetry 81 L 04/09/21 12:04 Oxygen Delivery Method Nasal Cannula 04/09/21 10:36 Oxygen Flow Rate 3.5 04/09/21 10:36 Pain Level 0 04/09/21 10:36 Intake & Output 04/10/21 04/10/21 04/11/21 11:59 23:59 11:59 Output Total 650 / 1000 350 / 1000 650 / 650 Balance -650 / -1000 -350 / -1000 -650 / -650 Output: Urine 650 / 1000 350 / 1000 650 / 650 Other: Urine Color Yellow Yellow Yellow Urine Appearance Clear Clear Clear PFSH Medical History HIPOLITO (acute kidney injury) Ankle pain, left Auditory hallucinations Back pain Calcium kidney stone Chronic constipation COPD (chronic obstructive pulmonary disease) Depressive disorder Diabetes mellitus DNI (do not intubate) DNR (do not resuscitate) Falls Fatigue Fracture of orbital floor, left side, sequela GERD (gastroesophageal reflux disease) Glaucoma Headache Hip pain, bilateral Hyperlipidemia Hypertension Insomnia Intracranial aneurysm Kidney failure Knee pain, bilateral Low back pain Lumbar back pain Migraine headache with aura Migraine headache without aura Osteoarthritis Overweight Paranoid schizophrenia POLST (Physician Orders for Life-Sustaining Treatment) Polyarthralgia Tobacco use disorder Toe infection Umbilical hernia without mention of obstruction or gangrene Urinary frequency Vitamin D deficiency Surgical History H/O: hysterectomy History of bilateral tubal ligation Status post coil embolization of cerebral aneurysm Family History Father Colon cancer Renal cancer Sister Breast cancer Mother Abdominal aortic aneurysm Brother Psychiatric illness Social History Smoking/Tobacco Use Status: Current every day Tobacco Type: cigarettes Smoking risk assessment performed?: Yes Alcohol Intake: former Drug use: Current Sobriety Substance use type: does not use Current gender identity: female Do you feel safe at home: Yes Do you feel safe in your relationship?: Yes
--- NOTE | 2021-04-11 11:08 | NUR.NOTE ---
[facility] Staff were busy and said they would call back if they had questions. Nursing Note:
--- NOTE | 2021-04-11 14:40 | PDOC.CMDIS ---
- If Service Date Differs Date of service: 04/11/21 Time of Service: 14:40 LACE Index Scoring Tool - Questions: Length of Stay (in days): 3 Acuity (Admit via E.D.?): Yes Comorbidities: Diabetes w/o Complication, Mild Liver/Renal Disease E.D. Visits: 7 - Answers: Total Score: 13 Risk of Readmission: High Risk Care Management Discharge Reason for Hospitalization: AMS, dehydration, Covid19 Discharge Plan: Nya returned to [facility] today, where she resides. She was transported via [facility] ambulance. She will have her end of life care at [facility], as she has transitioned to comfort measures. Patient/Family Education Needs: Review discharge instructions with pt and accepting facility, discussion of expectations for end of life care. Services Needed at Discharge: Prison Facility ([facility]), Transportation ([facility])
--- NOTE | 2021-04-13 09:11 | INDS_ITS ---
Date of service: 04/13/21 PT Notes Visit Reasons: Acute Mental Status Madd[place],Dehydration,HIPOLITO,Covid-19 Physical Therapy Inpatient Discharge Summary Date: 04/13/21 Dates of Service: 04/13/21 only\ This is a clinical summary of care provided for the duration of dates listed a reggie. No charge was made in the completion of this documentation. Referring Doctor: Usman Brewer PT Orders: PT CONSULT: Exacerbation of chronic condition Precautions: COVID-19, Fall Patient Profile/Admitting Diagnosis: Acute mental status change, dehydration, HIPOLITO, Covid?19 Patient Profile/Admitting Diagnosis: Orders received for this 66 year old female who was admitted secondary to increased lethargy, not eating or drinking, dehydration, HIPOLITO, recurrent hypoglycemia.resides at [facility] with plan to return there once medically stable. As per EMR information she utilizes a walker at baseline. Patient sustained a proximal humeral fracture and was hospitalized from January 27 to February 10, 2021. Patient did have orthopedic follow-up on 29 March. Diagnostics revealed slow healing leaving suspicion of a nonunion PMHX: Medical History (Updated 04/08/21 @ 23:09 by Usman Brewer) HIPOLITO (acute kidney injury) Ankle pain, left Auditory hallucinations Back pain Calcium kidney stone Chronic constipation COPD (chronic obstructive pulmonary disease) Depressive disorder Diabetes mellitus DNI (do not intubate) DNR (do not resuscitate) Falls Fatigue Fracture of orbital floor, left side, sequela GERD (gastroesophageal reflux disease) Glaucoma Headache Hip pain, bilateral Hyperlipidemia Hypertension Insomnia Intracranial aneurysm Kidney failure Knee pain, bilateral Low back pain Lumbar back pain Migraine headache with aura Migraine headache without aura Osteoarthritis Overweight Paranoid schizophrenia POLST (Physician Orders for Life-Sustaining Treatment) Polyarthralgia Tobacco use disorder Toe infection Umbilical hernia without mention of obstruction or gangrene Urinary frequency Vitamin D deficiency Surgical History H/O: hysterectomy History of bilateral tubal ligation Status post coil embolization of cerebral aneurysm Social History/Home Situation: Current resident of [facility] and [facility]. Equipment Owned/DME: [facility] Subjective: NT. See most recent SIGNAL AND COMMUNICATIONS MAINTAINER notes. Objective: NT. See most recent SIGNAL AND COMMUNICATIONS MAINTAINER notes. Mental Status: Oriented to town she lives in [facility]. Not orientated to specific location, time, date. She is able to state her name. Observation: Telemetry, IV lines bilateral upper extremities, supplemental oxygen 3.5 L via nasal cannula, catheter. Patient does have ulcer in sacral region as per nursing report. Pain: Unable to give VAS score ROM: Right Upper Extremity: Wrist motion only. Active assistive shoulder scapular abduction 50 degrees limited due to pain, active assistive internal rotation 45 degrees, external rotation 10 degrees. Elbow flexion extension active assisted within functional limits. Active elbow range of motion 20 degrees flexion to 70 degrees flexion. Left Upper Extremity: MOtion through the shoulder flexes to 120 degrees, elbow motion WNL, wrist motion WNL Right Lower Extremity: Patient unable to follow verbal commands for active range of motion. Passive range of motion hip and knee within functional limits Left Lower Extremity: Patient unable to follow verbal commands for active rang e of motion. Passive range of motion hip and knee within functional limits Strength: Right Upper Extremity: Casing Sewer strength fair Left Upper Extremity: Unable to assess Right Lower Extremity: Unable to assess Left Lower Extremity: Unable to assess Bed Mobility/Transfers: Patient not appropriate for out of bed given her current state of drowsiness and inability for full alert arousal. Gait: Not tested on evaluation Balance: Static Sitting: Poor Dynamic Sitting: Poor Static Standing: Poor Dynamic Standing: Poor ASSESSMENT: Patient presents with the following impairment level findings: Poor arousal, low level of active engagement, difficulty with use of upper and lower extremities. Limited ROM, decreased use of self transfers, ambulation intolerance. Goals: Goals X1 week 1. Supine-Sit Min Assist NOT MET 2. Sit-Supine MIn Assist NOT MET 3. Sit-Stand Min Assist NOT MET 4. Stand-Sit Min Assist NOT MET 5. Bed-Chair Min Assist NOT MET 6. Gait With Min Assist and use of FWW up to 50 feet NOT MET DISCHARGE RECOMMENDATIONS: Return to [facility] when medically cleared. TREATMENT CODE/TIME: NC Thank you for the opportunity to participate in the care of this patient. Rina Washington PT, DPT, CLT [facility] [place], [place]
== END 2021-04-11 11:55 | disposition intermediate care facility (04) | DRG 689 ==
LOC: ER 18:53 → MS 19:47
PROVIDERS: Admitting Provider Internal Medicine; Emergency Provider Emergency Medicine; PCP Nurse Practitioner Family; Visit Provider Internal Medicine
DX: N39.0 Urinary tract infection, site not specified (principal); U07.1 COVID-19; N17.9 Acute kidney failure, unspecified; F20.0 Paranoid schizophrenia; Z51.5 Encounter for palliative care; E86.0 Dehydration; Z79.82 Long term (current) use of aspirin; E13.649 Other specified diabetes mellitus with hypoglycemia without coma; N18.9 Chronic kidney disease, unspecified; I12.9 Hypertensive chronic kidney disease with stage 1 through stage 4 chronic kidney disease, or unspecified chronic kidney disease; E11.22 Type 2 diabetes mellitus with diabetic chronic kidney disease; D64.9 Anemia, unspecified; Z79.84 Long term (current) use of oral hypoglycemic drugs; Z66 Do not resuscitate; F32.A Depression, unspecified; K21.9 Gastro-esophageal reflux disease without esophagitis; R29.6 Repeated falls; K59.09 Other constipation; J44.9 Chronic obstructive pulmonary disease, unspecified; H40.9 Unspecified glaucoma; E78.5 Hyperlipidemia, unspecified; G47.00 Insomnia, unspecified; M54.50 Low back pain, unspecified; F17.210 Nicotine dependence, cigarettes, uncomplicated; E55.9 Vitamin D deficiency, unspecified; R35.0 Frequency of micturition
CPT/HCPCS: 36415; 36416; 80053; 82550; 82805; 82962; 86850; 86900; 86901; 87081; 87635; 96361; 96365; 96375; 97163; 99285; 71045; 81003; 81015; 82728; 83735; 83880; 84443; 84484; 85025; 85379; 86140; 87086; 94640; 99222; 99231; 99232; 99238; J1100; J1644; J1956; J3490; J7613